=== PATIENT | male | born 1975 | race Caucasian/White ===

== ENCOUNTER 2017-04-29 15:56 | Inpatient (IN) | payer BC ==
[~2017-04-29] VITALS: Ht 172.7 cm; Wt 93.0 kg
[2017-04-29 16:00] VITALS: BP 105/56
[2017-04-29 16:43] LABS: MEAN CORPUSCULAR HEMOGLOBIN 40.6 PG (27.0-31.0); MEAN CORPUSCULAR HGB CONC 33.2 G/DL (32.0-36.0); MEAN CORPUSCULAR VOLUME 122 FL (80-99); MEAN PLATELET VOLUME 5.8 FL (6.5-10.1); PLATELET COUNT 132 K/UL (150-450); RED BLOOD COUNT 2.25 M/UL (4.70-6.10); RED CELL DISTRIBUTION WIDTH 13.9 % (11.6-14.8); WHITE BLOOD COUNT 14.6 K/UL (4.8-10.8)
[2017-04-29 16:44] LABS: BASOPHILS % (AUTO) 0.3 % (0.0-2.0); EOSINOPHILS % (AUTO) 0.1 % (0.0-3.0); MONOCYTES % (AUTO) 3.3 % (1.0-10.0); NEUTROPHILS % (AUTO) 89.3 % (45.0-75.0)
[2017-04-29 16:46] LABS: INR 1.5 (0.9-1.1); PROTHROMBIN TIME 16.1 SEC (9.30-11.50)
[2017-04-29 17:05] LABS: ALANINE AMINOTRANSFERASE 35 U/L (12-78); ALBUMIN/GLOBULIN RATIO 0.5 (1.0-2.7); ANION GAP 14 (5-15); ASPARTATE AMINO TRANSFERASE 306 U/L (15-37); CALCIUM 8.1 MG/DL (8.5-10.1); CARBON DIOXIDE 29 MMOL/L (21-32); CHLORIDE 89 MMOL/L (98-107); CKMB 0.6 NG/ML (0.0-3.6); CREATININE 1.5 MG/DL (0.55-1.30); GLOMERULAR FILTRATION RATE 51.8 mL/min (>60); LIPASE > 1000 U/L (73-393); POTASSIUM 3.1 MMOL/L (3.5-5.1); SODIUM 131 MMOL/L (136-145); TOTAL PROTEIN 5.6 G/DL (6.4-8.2)
--- NOTE | 2017-04-29 17:14 | Emergency Room Report ---
History of Present Illness General Chief Complaint: Abdominal Pain Source: Patient, Medical Record Present Illness HPI Patient presents with complaints of increasing distended abdomen He feels more short of breath over the past few days Patient reports that he is a heavy alcohol drinker Denies any chest pain denies any back or flank pain Has very minimal abdominal discomfort, has pushed on denies any black or tarry stool Denies any blood in the stool denies any vomiting patient noticed his skin color changing to more a yellow color as well Given the continued swelling in the shortness of breath and presents to the ER Allergies: Coded Allergies: No Known Allergies (Unverified , 04/29/17) Patient History Past Medical History: see triage record Pertinent Family History: none Reviewed Nursing Documentation: PMH: Agreed, PSxH: Agreed Nursing Documentation-PMH Past Medical History: No History, Except For Review of Systems All Other Systems: negative except mentioned in HPI Physical Exam Vital Signs Date Time Temp Pulse Resp B/P (MAP) Pulse Ox O2 Delivery O2 Flow Rate FiO2 04/29/17 15:50 98.8 70 20 130/70 99 Non-Rebreather 15.0 Sp02 EP Interpretation: reviewed, normal General Appearance: other - Appears jaundiced and ill Head: normocephalic, atraumatic Eyes: bilateral eye PERRL, bilateral eye EOMI, bilateral eye scleral icterus ENT: hearing grossly normal, normal pharynx, TMs + canals normal, uvula midline Neck: full range of motion, supple, no meningismus, no bony tend Respiratory: no rhonchi, no respiratory distress, no retraction, no accessory muscle use, crackles Cardiovascular #1: normal peripheral pulses, regular rate, rhythm, no gallop, no JVD, no murmur Gastrointestinal: normal bowel sounds, soft, no mass, no organomegaly, no guarding, no hernia, no pulsatile mass, no rebound, hepatomegaly, other - ascites Genitourinary: no CVA tenderness Musculoskeletal: normal inspection Neurologic: oriented x3, responsive, 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 as tested, motor strength/ tone normal, sensory intact Psychiatric: mood/affect normal Skin: other Lymphatic: normal inspection, no adenopathy Procedures Critical Care Time Critical Care Time 40 minutes for multiple re\re evaluations concern for critical presentation findings concerning for life-threatening pathology not including any procedural time Medical Decision Making Diagnostic Impression: Primary Impression: Ascites due to alcoholic cirrhosis Additional Impression: Jaundice of recent onset ER Course With the history exam and presentation, multiple differentials considered, including but not limited to appendicitis, gastritis, cholecystitis, diverticulitis Given the patient's general presentation and clinical history There is concern regarding liver failure Versus other pathology such as mentioned above Patient's ultrasound reveals evidence of ascites, bowel duct appears normal size Patient's blood work is concerning patient requires admission with further specialty consultation Given the patient's intermittent hypotension CAT scan imaging was obtained to evaluate for possible pericardial effusion there is no evidence of that the patient does have bilateral effusions however On CAT scan report is also question of possible pneumonia However the patient denies any cough or URI symptom Patient admittedto ICU for continued care in critical condition Labs Test 04/29/17 16:15 04/29/17 18:00 White Blood Count 14.6 K/UL (4.8-10.8) Red Blood Count 2.25 M/UL (4.70-6.10) Hemoglobin 9.1 G/DL (14.2-18.0) Hematocrit 27.5 % (42.0-52.0) Mean Corpuscular Volume 122 FL (80-99) Mean Corpuscular Hemoglobin 40.6 PG (27.0-31.0) Mean Corpuscular Hemoglobin Concent 33.2 G/DL (32.0-36.0) Red Cell Distribution Width 13.9 % (11.6-14.8) Platelet Count 132 K/UL (150-450) Mean Platelet Volume 5.8 FL (6.5-10.1) Neutrophils (%) (Auto) 89.3 % (45.0-75.0) Lymphocytes (%) (Auto) 7.0 % (20.0-45.0) Monocytes (%) (Auto) 3.3 % (1.0-10.0) Eosinophils (%) (Auto) 0.1 % (0.0-3.0) Basophils (%) (Auto) 0.3 % (0.0-2.0) Prothrombin Time 16.1 SEC (9.30-11.50) Prothromb Time International Ratio 1.5 (0.9-1.1) Activated Partial Thromboplast Time 33 SEC (23-33) Sodium Level 131 MMOL/L (136-145) Potassium Level 3.1 MMOL/L (3.5-5.1) Chloride Level 89 MMOL/L (98-107) Carbon Dioxide Level 29 MMOL/L (21-32) Anion Gap 14 (5-15) Blood Urea Nitrogen 24 mg/dL (7-18) Creatinine 1.5 MG/DL (0.55-1.30) Estimat Glomerular Filtration Rate 51.8 mL/min (>60) Glucose Level 120 MG/DL (74-106) Calcium Level 8.1 MG/DL (8.5-10.1) Total Bilirubin 16.9 MG/DL (0.2-1.0) Direct Bilirubin 13.8 MG/DL (0.0-0.3) Aspartate Amino Transf (AST/SGOT) 306 U/L (15-37) Alanine Aminotransferase (ALT/SGPT) 35 U/L (12-78) Alkaline Phosphatase 533 U/L (46-116) Total Creatine Kinase 38 U/L (26-308) Creatine Kinase MB 0.6 NG/ML (0.0-3.6) Creatine Kinase MB Relative Index 1.5 Troponin I 0.001 ng/mL (0.000-0.056) Pro-B-Type Natriuretic Peptide 436 (0-125) Total Protein 5.6 G/DL (6.4-8.2) Albumin 1.8 G/DL (3.4-5.0) Globulin 3.8 g/dL Albumin/Globulin Ratio 0.5 (1.0-2.7) Lipase > 1000 U/L (73-393) Lactic Acid Level 3.40 mmol/L (0.66-2.22) Rhythm Strip Diag. Results EP Interpretation: yes Rate: 112 Rhythm: no PVC's, no ectopy, other - sinus tach Chest X-Ray Diagnostic Results Chest X-Ray Diagnostic Results : Chest X-Ray Ordered: Yes # of Views/Limited/Complete: 1 View Indication: Chest Pain EP Interpretation: Yes Interpretation: no pneumothorax, other - Bilateral large effusions, pulmonary congestion, heart size appears enlarged, no acute bony abnormalities Impression: Other - bilateral large effusions CT/MRI/US Diagnostic Results CT/MRI/US Diagnostic Results : Impression Abdominal ultrasound: Evidence of ascites, questionable cirrhosis, gallbladder wall appears normal no obvious gallstone refer to report for full specific CT abdomen pelvis small to moderate right and small left pleural effusion bilateral lower lobe atelectasis consider consolidation and possible right upper lobe infiltrate moderate ascites Last Vital Signs Date Time Temp Pulse Resp B/P (MAP) Pulse Ox O2 Delivery O2 Flow Rate FiO2 04/29/17 16:00 133 22 105/56 92 Nasal Cannula 4.0 04/29/17 15:50 98.8 Status: improved Disposition: ADMITTED INPATIENT Condition: Critical BRENT DENTON D.O. Apr 29, 2017 17:14
[2017-04-29 17:25] LABS: BILIRUBIN,DIRECT 13.8 MG/DL (0.0-0.3)
[2017-04-29 17:40] VITALS: BP 118/64
--- NOTE | 2017-04-29 18:45 | Infectious Diseases Prog Note ---
Assessment/Plan Problems: (1) Jaundice of recent onset Assessment & Plan: suspect alcholic hepatitis related, liver US is pending , GI is following (2) Ascites due to alcoholic cirrhosis Assessment & Plan: rule out SBP , will start ceftriaxon empirically , recommend paracentesis and fluids to be sent for culture , gram stain fungal , and AFB (3) Alcohol abuse Assessment & Plan: recommend counseling and rehabilitation Subjective Allergies: Coded Allergies: No Known Allergies (Unverified , 04/29/17) Objective Vital Signs Last 24 Hour Vital Signs Date Time Temp Pulse Resp B/P (MAP) Pulse Ox O2 Delivery O2 Flow Rate FiO2 04/29/17 17:40 124 19 118/64 97 Simple Mask 7.0 04/29/17 16:00 133 22 105/56 92 Nasal Cannula 4.0 04/29/17 15:50 98.8 70 20 130/70 99 Non-Rebreather 15.0 Height (Feet): 5 Height (Inches): 8.00 Weight (Pounds): 160 Laboratory Tests Test 04/29/17 16:15 04/29/17 18:00 White Blood Count 14.6 K/UL (4.8-10.8) H Red Blood Count 2.25 M/UL (4.70-6.10) L Hemoglobin 9.1 G/DL (14.2-18.0) L Hematocrit 27.5 % (42.0-52.0) L Mean Corpuscular Volume 122 FL (80-99) H Mean Corpuscular Hemoglobin 40.6 PG (27.0-31.0) H Mean Corpuscular Hemoglobin Concent 33.2 G/DL (32.0-36.0) Red Cell Distribution Width 13.9 % (11.6-14.8) Platelet Count 132 K/UL (150-450) L Mean Platelet Volume 5.8 FL (6.5-10.1) L Neutrophils (%) (Auto) 89.3 % (45.0-75.0) H Lymphocytes (%) (Auto) 7.0 % (20.0-45.0) L Monocytes (%) (Auto) 3.3 % (1.0-10.0) Eosinophils (%) (Auto) 0.1 % (0.0-3.0) Basophils (%) (Auto) 0.3 % (0.0-2.0) Prothrombin Time 16.1 SEC (9.30-11.50) H Prothromb Time International Ratio 1.5 (0.9-1.1) H Activated Partial Thromboplast Time 33 SEC (23-33) Sodium Level 131 MMOL/L (136-145) L Potassium Level 3.1 MMOL/L (3.5-5.1) L Chloride Level 89 MMOL/L (98-107) L Carbon Dioxide Level 29 MMOL/L (21-32) Anion Gap 14 (5-15) Blood Urea Nitrogen 24 mg/dL (7-18) H Creatinine 1.5 MG/DL (0.55-1.30) H Estimat Glomerular Filtration Rate 51.8 mL/min (>60) Glucose Level 120 MG/DL (74-106) H Calcium Level 8.1 MG/DL (8.5-10.1) L Total Bilirubin 16.9 MG/DL (0.2-1.0) H Direct Bilirubin 13.8 MG/DL (0.0-0.3) H Aspartate Amino Transf (AST/SGOT) 306 U/L (15-37) H Alanine Aminotransferase (ALT/SGPT) 35 U/L (12-78) Alkaline Phosphatase 533 U/L (46-116) H Total Creatine Kinase 38 U/L (26-308) Creatine Kinase MB 0.6 NG/ML (0.0-3.6) Creatine Kinase MB Relative Index 1.5 Troponin I 0.001 ng/mL (0.000-0.056) Pro-B-Type Natriuretic Peptide 436 (0-125) H Total Protein 5.6 G/DL (6.4-8.2) L Albumin 1.8 G/DL (3.4-5.0) L Globulin 3.8 g/dL Albumin/Globulin Ratio 0.5 (1.0-2.7) L Lipase > 1000 U/L (73-393) H Lactic Acid Level Pending Janae Lopez M.D. Apr 29, 2017 18:45
[2017-04-29 18:52] LABS: REFLEX LACTIC ACID YES OR NO YES
[2017-04-29] MEDS ORDERED: THIAMINE HCL100 MG ORAL (19:58)
[2017-04-29] MEDS ORDERED: EUCERIN CREAM15 GM TOPIC (19:58)
[2017-04-29] MEDS ORDERED: PROVENTIL HFA6.7 G1 IH (19:58)
[2017-04-29] MEDS ORDERED: VITAMIN D1000 UNI1 ORAL (19:58)
--- NOTE | 2017-04-29 20:32 | Consultation ---
Consult Note Consult Note Chief Complaint: Abdominal Pain Source: Patient, Medical Record Patient presents with complaints of increasing distended abdomen He feels more short of breath over the past few days Patient reports that he is a heavy alcohol drinker Denies any chest pain denies any back or flank pain Has very minimal abdominal discomfort, has pushed on denies any black or tarry stool Denies any blood in the stool denies any vomiting patient noticed his skin color changing to more a yellow color as well Given the continued swelling in the shortness of breath and presents to the ER mom in room, patient confused examined data reviewed Assessment/Plan status: renal failure low Na due to anasarca Low K Jaundice Anemia high Lipase High lactic low alb Plan; per GI transfuse monitor renal parameters- monitor MIKAELA Obregon Apr 29, 2017 20:32
[2017-04-29 20:55] VITALS: BP 95/65
[2017-04-29] MEDS ORDERED: cefTRIAXone 1 GM in NS 55 ML IVPB SCH (21:00)
[2017-04-29 22:00] VITALS: BP 128/67
[2017-04-29] MEDS ORDERED: Thiamine HCl 100 MG, Folic Acid 1 MG, Magnesium Sulfate 2,000 MG, Multivitamin - 12 Inj... IV SCH ×5 (22:15)
--- NOTE | 2017-04-29 22:27 | Consultation ---
History of Present Illness General Chief Complaint: Abdominal Pain Present Illness HPI the pt reportedly has hx of severe alcohol dependence. mo current alcohol w/d Allergies: Coded Allergies: No Known Allergies (Unverified , 04/29/17) Medication History Scheduled Cholecalciferol (Vitamin D3)* (Vitamin D*), 1,000 UNIT ORAL DAILY, (Reported) Thiamine Hcl (Vitamin B1*), 100 MG ORAL DAILY, (Reported) Scheduled PRN Albuterol Sulfate (Proventil Hfa), 6.7 GM IH BID PRN for Shortness of Breath, ( Reported) Eucerin (Eucerin Creme), 1 APPLIC TOPIC ONCE A WEEK PRN for eczema, (Reported) Patient History Healthcare decision maker Resuscitation status Advanced Directive on File Past Medical/Surgical History Past Medical/Surgical History: (1) Jaundice of recent onset (2) Ascites due to alcoholic cirrhosis Physical Exam Last 24 Hour Vital Signs Date Time Temp Pulse Resp B/P (MAP) Pulse Ox O2 Delivery O2 Flow Rate FiO2 04/29/17 21:47 121 98 Facial 100 04/29/17 20:55 98.8 127 26 95/65 97 Bi-pap 7.0 100 04/29/17 20:31 128 26 Bi-pap 100 04/29/17 20:29 128 96 Facial 100 04/29/17 20:25 7.0 100 04/29/17 17:40 124 19 118/64 97 Simple Mask 7.0 04/29/17 16:00 133 22 105/56 92 Nasal Cannula 4.0 04/29/17 15:50 98.8 70 20 130/70 99 Non-Rebreather 15.0 Intake and Output 04/29/17 04/30/17 19:00 07:00 Intake Total 0 ml Balance 0 ml Intake Oral 0 ml Laboratory Tests Test 04/29/17 16:15 04/29/17 18:00 04/29/17 21:00 White Blood Count 14.6 K/UL (4.8-10.8) H Red Blood Count 2.25 M/UL (4.70-6.10) L Hemoglobin 9.1 G/DL (14.2-18.0) L Hematocrit 27.5 % (42.0-52.0) L Mean Corpuscular Volume 122 FL (80-99) H Mean Corpuscular Hemoglobin 40.6 PG (27.0-31.0) H Mean Corpuscular Hemoglobin Concent 33.2 G/DL (32.0-36.0) Red Cell Distribution Width 13.9 % (11.6-14.8) Platelet Count 132 K/UL (150-450) L Mean Platelet Volume 5.8 FL (6.5-10.1) L Neutrophils (%) (Auto) 89.3 % (45.0-75.0) H Lymphocytes (%) (Auto) 7.0 % (20.0-45.0) L Monocytes (%) (Auto) 3.3 % (1.0-10.0) Eosinophils (%) (Auto) 0.1 % (0.0-3.0) Basophils (%) (Auto) 0.3 % (0.0-2.0) Prothrombin Time 16.1 SEC (9.30-11.50) H Prothromb Time International Ratio 1.5 (0.9-1.1) H Activated Partial Thromboplast Time 33 SEC (23-33) Sodium Level 131 MMOL/L (136-145) L Potassium Level 3.1 MMOL/L (3.5-5.1) L Chloride Level 89 MMOL/L (98-107) L Carbon Dioxide Level 29 MMOL/L (21-32) Anion Gap 14 (5-15) Blood Urea Nitrogen 24 mg/dL (7-18) H Creatinine 1.5 MG/DL (0.55-1.30) H Estimat Glomerular Filtration Rate 51.8 mL/min (>60) Glucose Level 120 MG/DL (74-106) H Calcium Level 8.1 MG/DL (8.5-10.1) L Total Bilirubin 16.9 MG/DL (0.2-1.0) H Direct Bilirubin 13.8 MG/DL (0.0-0.3) H Aspartate Amino Transf (AST/SGOT) 306 U/L (15-37) H Alanine Aminotransferase (ALT/SGPT) 35 U/L (12-78) Alkaline Phosphatase 533 U/L (46-116) H Total Creatine Kinase 38 U/L (26-308) Creatine Kinase MB 0.6 NG/ML (0.0-3.6) Creatine Kinase MB Relative Index 1.5 Troponin I 0.001 ng/mL (0.000-0.056) Pro-B-Type Natriuretic Peptide 436 (0-125) H Total Protein 5.6 G/DL (6.4-8.2) L Albumin 1.8 G/DL (3.4-5.0) L Globulin 3.8 g/dL Albumin/Globulin Ratio 0.5 (1.0-2.7) L Lipase > 1000 U/L (73-393) H Lactic Acid Level 3.40 mmol/L (0.66-2.22) H 4.40 mmol/L (0.66-2.22) H Height (Feet): 5 Height (Inches): 8.00 Weight (Pounds): 160 Medications Current Medications Medications (Trade) Dose Ordered Sig/Leonard Route PRN Reason Start Time Stop Time Status Last Admin Dose Admin Ceftriaxone Sodium 1 gm/ Sodium Chloride 55 ml @ 110 mls/hr Q24HRS IVPB 04/29/17 21:00 05/06/17 20:59 Potassium Chloride 100 ml @ 100 mls/hr Q1H IVPB 04/29/17 21:00 04/30/17 00:59 Sodium Chloride 1,000 ml @ 150 mls/hr Q6H40M IV 04/29/17 22:30 05/29/17 22:29 Assessment/Plan Assessment/Plan ativan iv was ordered valium po folate thiamine Trino Kirby M.D. Apr 29, 2017 22:27
[2017-04-29] MEDS ORDERED: LORazepam Inj 2mg/ml 1ml IV PRN (22:30)
[2017-04-29] MEDS ORDERED: Phytonadione 1 MG in D5W 55 ML IVPB ONE (22:45)
--- NOTE | 2017-04-29 22:47 | Consultation ---
Consult Note Consult Note cirrhosis Assessment/Plan full dictation to fu banana bag vit k paracentesis avoid diuretics for now albumin prednisone monitor labs clears not transplant candidate given active drinking mucangelitost BARTOLO CHAPA Apr 29, 2017 22:47
[2017-04-29 23:00] VITALS: BP 136/64
[2017-04-29] MEDS ORDERED: ACETYLCYSTEINE 20% ORAL ONE (23:00)
[2017-04-29 23:33] LABS: PATH BLOOD SMEAR/OMC SENT TO PATHOLOGIST
[2017-04-29] MEDS: Pantoprazole Inj IVP SCH (23:35)
[2017-04-30] VITALS (24 sets, daily range): BP systolic 92–133; BP diastolic 46–72
[2017-04-30] MEDS ORDERED: Thiamine HCl 100 MG, Folic Acid 1 MG, Magnesium Sulfate 2,000 MG, Multivitamin - 12 Inj... IV SCH ×5
--- NOTE | 2017-04-30 00:51 | Consultation ---
History of Present Illness General Date patient seen: Apr 30, 2017 Chief Complaint: Abdominal Pain Present Illness HPI 42 year old male with history of chronic alcohol dependance and abuse presented to ED with complaints of worsening shortness of breath. As per patient, he has been progressively abusing alcohol for over 10 years. He drinks multiple times a day. He has not thought much about it until earlier today when he began to have some shortness of breath. He felt as if it was difficult to breath and came to ED for evaluation. Patient is accompanied by his mother. When asked they state that he was okay two days ago but was notable jaundice starting yesterday. He has noted some darkening of his urine over the past two weeks but skin color and jaundice started yesterday. He denies any abdominal pain. no nausea or emesis. has been having normal but dark BM's. passes flatus consistently. He has never seen help for EtOH dependance. Has never been sick prior. States he has not known of any liver problems in the past but has also not seen a physician prior. In ED had CT which demonstrated ascites, hepatomegaly, splenomegaly. Allergies: Coded Allergies: No Known Allergies (Unverified , 04/29/17) Medication History Scheduled Cholecalciferol (Vitamin D3)* (Vitamin D*), 1,000 UNIT ORAL DAILY, (Reported) Thiamine Hcl (Vitamin B1*), 100 MG ORAL DAILY, (Reported) Scheduled PRN Albuterol Sulfate (Proventil Hfa), 6.7 GM IH BID PRN for Shortness of Breath, ( Reported) Eucerin (Eucerin Creme), 1 APPLIC TOPIC ONCE A WEEK PRN for eczema, (Reported) Patient History History Provided By: Patient, Family Member Healthcare decision maker Resuscitation status Advanced Directive on File Past Medical/Surgical History Past Medical/Surgical History: (1) Jaundice of recent onset (2) Ascites due to alcoholic cirrhosis (3) Alcohol abuse Review of Systems Constitutional: Denies: no symptoms, see HPI, chills, sweats, fever, malaise, weakness, other Eye: Denies: no symptoms, see HPI, eye pain, blurred vision, tearing, double vision, nose pain, nose congestion, acuity changes, discharge, other ENT: Denies: no symptoms, see HPI, ear pain, ear discharge, nose pain, nose congestion, throat pain, throat swelling, mouth pain, hearing loss, nasal discharge, other Respiratory: Reports: shortness of breath Cardiovascular: Denies: no symptoms, see HPI, chest pain, edema, palpitations, syncope, PND, other Gastrointestinal: Denies: no symptoms, see HPI, abdominal pain, constipation, diarrhea, nausea, vomiting, melena, hematemesis, other Genitourinary: Denies: no symptoms, see HPI, discharge, dysuria, frequency, hematuria, pain, retention, incontinence, urgency, vag bleed/dc, other Musculoskeletal: Denies: no symptoms, see HPI, back pain, gout, joint pain, joint swelling, muscle pain, muscle stiffness, other Skin: Denies: no symptoms, see HPI, rash, change in color, change in hair/nails , dryness, lesions, other Psychiatric: Denies: no symptoms, see HPI, prior hx, anxiety, depressed feelings, emotional problems, SI, HI, hallucinations, other Neurological: Denies: no symptoms, see HPI, headache, numbness, paresthesia, seizure, tingling, tremors, focal weakness, syncope, dizziness, other Endocrine: Denies: no symptoms, see HPI, excessive sweating, flushing, intolerance to temperature, increased thirst, increased urine, unexplained weight loss, other Hematologic/Lymphatic: Denies: no symptoms, see HPI, anemia, blood clots, easy bleeding, easy bruising, swollen glands, diathesis, other Physical Exam General Appearance: no apparent distress, alert Lines, tubes and drains: peripheral HEENT: normocephalic, anicteric, PERRL, other - jaundice Neck: normal inspection Respiratory/Chest: chest wall non-tender, normal breath sounds, no accessory muscle use Cardiovascular/Chest: tachycardia Abdomen: normal bowel sounds, non tender, soft, distended Extremities: normal range of motion Skin Exam: jaundice 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 II-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 grossly normal, alert, oriented x 3, responsive Last 24 Hour Vital Signs Date Time Temp Pulse Resp B/P (MAP) Pulse Ox O2 Delivery O2 Flow Rate FiO2 04/29/17 23:15 123 98 Facial 70 04/29/17 22:14 127 21 99/55 97 Bi-pap 04/29/17 21:47 121 98 Facial 100 04/29/17 20:55 98.8 127 26 95/65 97 Bi-pap 7.0 100 04/29/17 20:31 128 26 Bi-pap 100 04/29/17 20:29 128 96 Facial 100 04/29/17 20:25 7.0 100 04/29/17 17:40 124 19 118/64 97 Simple Mask 7.0 04/29/17 16:00 133 22 105/56 92 Nasal Cannula 4.0 04/29/17 15:50 98.8 70 20 130/70 99 Non-Rebreather 15.0 Laboratory Tests Test 04/29/17 16:15 04/29/17 18:00 04/29/17 21:00 04/29/17 23:40 White Blood Count 14.6 K/UL (4.8-10.8) H Red Blood Count 2.25 M/UL (4.70-6.10) L Hemoglobin 9.1 G/DL (14.2-18.0) L Hematocrit 27.5 % (42.0-52.0) L Mean Corpuscular Volume 122 FL (80-99) H Mean Corpuscular Hemoglobin 40.6 PG (27.0-31.0) H Mean Corpuscular Hemoglobin Concent 33.2 G/DL (32.0-36.0) Red Cell Distribution Width 13.9 % (11.6-14.8) Platelet Count 132 K/UL (150-450) L Mean Platelet Volume 5.8 FL (6.5-10.1) L Neutrophils (%) (Auto) 89.3 % (45.0-75.0) H Lymphocytes (%) (Auto) 7.0 % (20.0-45.0) L Monocytes (%) (Auto) 3.3 % (1.0-10.0) Eosinophils (%) (Auto) 0.1 % (0.0-3.0) Basophils (%) (Auto) 0.3 % (0.0-2.0) Prothrombin Time 16.1 SEC (9.30-11.50) H Prothromb Time International Ratio 1.5 (0.9-1.1) H Activated Partial Thromboplast Time 33 SEC (23-33) Sodium Level 131 MMOL/L (136-145) L Potassium Level 3.1 MMOL/L (3.5-5.1) L Chloride Level 89 MMOL/L (98-107) L Carbon Dioxide Level 29 MMOL/L (21-32) Anion Gap 14 (5-15) Blood Urea Nitrogen 24 mg/dL (7-18) H Creatinine 1.5 MG/DL (0.55-1.30) H Estimat Glomerular Filtration Rate 51.8 mL/min (>60) Glucose Level 120 MG/DL (74-106) H Calcium Level 8.1 MG/DL (8.5-10.1) L Total Bilirubin 16.9 MG/DL (0.2-1.0) H Direct Bilirubin 13.8 MG/DL (0.0-0.3) H Aspartate Amino Transf (AST/SGOT) 306 U/L (15-37) H Alanine Aminotransferase (ALT/SGPT) 35 U/L (12-78) Alkaline Phosphatase 533 U/L (46-116) H Total Creatine Kinase 38 U/L (26-308) Creatine Kinase MB 0.6 NG/ML (0.0-3.6) Creatine Kinase MB Relative Index 1.5 Troponin I 0.001 ng/mL (0.000-0.056) Pro-B-Type Natriuretic Peptide 436 (0-125) H Total Protein 5.6 G/DL (6.4-8.2) L Albumin 1.8 G/DL (3.4-5.0) L Globulin 3.8 g/dL Albumin/Globulin Ratio 0.5 (1.0-2.7) L Lipase > 1000 U/L (73-393) H Lactic Acid Level 3.40 mmol/L (0.66-2.22) H 4.40 mmol/L (0.66-2.22) H Urine Opiates Screen Pending Urine Barbiturates Screen Pending Phencyclidine (PCP) Screen Pending Urine Amphetamines Screen Pending Urine Benzodiazepines Screen Pending Urine Cocaine Screen Pending Urine Marijuana (THC) Screen Pending Height (Feet): 5 Height (Inches): 8.00 Weight (Pounds): 160 Medications Current Medications Medications (Trade) Dose Ordered Sig/Leonard Route PRN Reason Start Time Stop Time Status Last Admin Dose Admin Acetylcysteine (Mucomyst) 5,000 mg EVERY 4 HOURS ORAL 04/30/17 01:00 05/30/17 00:59 Ceftriaxone Sodium 1 gm/ Sodium Chloride 55 ml @ 110 mls/hr Q24HRS IVPB 04/29/17 21:00 05/06/17 20:59 04/30/17 00:11 Diazepam (Valium) 5 mg BEDTIME ORAL 04/29/17 22:45 05/06/17 22:44 04/30/17 00:11 Diazepam (Valium) 10 mg EVERY 4 HOURS PRN ORAL alcohol withdrawl 04/29/17 22:15 05/06/17 22:14 Lorazepam (Ativan 2mg/ml 1ml) 1 mg EVERY 2 HOURS PRN IV For Anxiety 04/29/17 22:30 05/06/17 22:29 UNV Lorazepam (Ativan 2mg/ml 1ml) 2 mg Q4H PRN IV ANX, agitation 04/29/17 22:15 05/06/17 22:14 Pantoprazole (Protonix) 40 mg EVERY 12 HOURS IVP 04/29/17 22:15 05/29/17 22:14 04/29/17 23:35 Potassium Chloride 100 ml @ 100 mls/hr Q1H IVPB 04/29/17 21:00 04/30/17 00:59 04/29/17 23:39 Prednisone (predniSONE) 40 mg DAILY ORAL 04/30/17 09:00 05/30/17 08:59 Sodium Chloride 1,000 ml @ 75 mls/hr [id number] IV 04/30/17 22:30 05/30/17 22:29 Thiamine HCl 100 mg/Folic Acid 1 mg/Magnesium Sulfate 2000 mg/ Multivitamins 10 ml/Sodium Chloride 1,015.2 ml @ 75 mls/hr Q24H IV 04/30/17 00:00 05/30/17 00:00 Thiamine HCl 200 mg/Dextrose 57 ml @ 75 mls/hr BID IVPB 04/30/17 09:00 05/30/17 08:59 Assessment/Plan Problem List: (1) Jaundice of recent onset Assessment & Plan: 42M with acute hepatic failure, jaundice, SOB, chemical pancreatitis. afebrile, tachycardic, initially hypotensive but BP okay now, labs as noted, CT as noted. over a decade of worsening alcohol abuse and acute onset hepatic failure. chemical pancreatitis but clinically without symptoms. significant electrolyte abnormalities. elevated lactate. -No acute surgical intervention. -jeong for accurate urine output monitoring -banana bag. will need EtOH prn meds as he is high risk for withdraw symptoms -IV fluids -paracentesis -trend labs, AM labs -abdominal ultrasound ICD Codes: R17 - Unspecified jaundice SNOMED: [id number] Status: stable YeisonAlverto Apr 30, 2017 00:51
[2017-04-30] MEDS ORDERED: Phytonadione 10 mg/mL 1ml amp ONE (01:15)
[2017-04-30] MEDS: ACETYLCYSTEINE 20% ORAL SCH ×3 (02:44→08:24)
[2017-04-30] MEDS ORDERED: THIAMINE HCL IVPB SCH ×5 (04:00→09:00)
[2017-04-30] MEDS ORDERED: D5W IVPB SCH ×5 (04:00→09:00)
[2017-04-30] MEDS: LORazepam Inj 2mg/ml 1ml IV PRN (06:04)
[2017-04-30 06:29] LABS: INR 1.8 (0.9-1.1); PROTHROMBIN TIME 18.9 SEC (9.30-11.50)
[2017-04-30 06:30] LABS: MEAN CORPUSCULAR HEMOGLOBIN 41.9 PG (27.0-31.0); MEAN CORPUSCULAR HGB CONC 34.7 G/DL (32.0-36.0); MEAN CORPUSCULAR VOLUME 121 FL (80-99); MEAN PLATELET VOLUME 6.2 FL (6.5-10.1); PLATELET COUNT 114 K/UL (150-450); RED BLOOD COUNT 1.64 M/UL (4.70-6.10); RED CELL DISTRIBUTION WIDTH 13.6 % (11.6-14.8); WHITE BLOOD COUNT 13.3 K/UL (4.8-10.8)
[2017-04-30 08:11] LABS: ALANINE AMINOTRANSFERASE 27 U/L (12-78); ALBUMIN/GLOBULIN RATIO 0.5 (1.0-2.7); ANION GAP 10 (5-15); ASPARTATE AMINO TRANSFERASE 235 U/L (15-37); CALCIUM 7.7 MG/DL (8.5-10.1); CARBON DIOXIDE 30 MMOL/L (21-32); CHLORIDE 87 MMOL/L (98-107); CRP QUANT 8.6 mg/dL (0.00-0.90); GLOMERULAR FILTRATION RATE 37.2 mL/min (>60); LIPASE > 1000 U/L (73-393); MAGNESIUM 1.6 MG/DL (1.8-2.4); PHOSPHORUS 3.3 MG/DL (2.5-4.9); POTASSIUM 3.3 MMOL/L (3.5-5.1); SODIUM 127 MMOL/L (136-145); THYROID STIMULATING HORMONE 3.417 uiU/mL (0.360-3.740); TOTAL PROTEIN 4.8 G/DL (6.4-8.2); URIC ACID 5.5 MG/DL (2.6-7.2)
[2017-04-30 08:12] LABS: FERRITIN > 2000 NG/ML (8-388)
[2017-04-30] MEDS: Folic Acid 1 MG, Magnesium Sulfate 2,000 MG, Multivitamin - 12 Injection 10 ML in NS w/... IV SCH (08:24)
[2017-04-30] MEDS: Pantoprazole Inj IVP SCH ×2 (08:24→21:07)
[2017-04-30] MEDS ORDERED: Thiamine 100mg tab ORAL SCH (09:00)
[2017-04-30 09:06] LABS: BILIRUBIN,DIRECT 12.9 MG/DL (0.0-0.3)
--- NOTE | 2017-04-30 09:38 | Diagnostic Imaging Report ---
INDICATION: Shortness of breath, abdominal pain, increasing abdominal distention over the past few days TECHNIQUE: No oral or IV contrast, per emergency room physician request Spiral acquisitions obtained through the chest, abdomen, and pelvis Multiplanar reconstructions were generated. Total dose length product 1865 mGycm. CTDIvol(s) 25 mGy. Radiation dose was minimized using automated exposure control COMPARISON: None FINDINGS Chest: There are bilateral pleural effusions, small to moderate, slightly larger on the right than on the left. There is atelectasis and consolidation of a significant portion of the right lower lobe. There is some atelectasis and consolidation, less extensive, of the right middle lobe. Patchy peripheral parenchymal opacities are seen in the right upper lobe. Similar patchy peripheral opacities are seen in the left upper lobe, and there is compressive atelectasis and possibly some consolidation involving the left lower lobe. The heart size is normal. No definite pericardial effusion. There are prominent but not frankly enlarged mediastinal lymph nodes. The included portions of the thyroid are unremarkable. No axillary or chest wall mass or adenopathy. There is bilateral mild gynecomastia, right greater than left. There is unusual appearance of the medial left ninth rib. Uncertain as to whether this is due to prior trauma or is developmental in nature. Abdomen pelvis: Lack of IV contrast limits assessment of the solid organs. Lack of oral contrast limits assessment of the GI tract There is a moderate amount of ascites fluid present. The liver demonstrates generalized hypoattenuation, as is the with fatty change. More striking decreased attenuation is seen posteriorly and inferiorly. This most likely represents more geographic fatty change, but the possibility of underlying mass cannot excluded. The liver is enlarged. There are are scattered areas of surface nodularity. The gallbladder is unremarkable. There is no biliary ductal dilatation. The spleen is mildly enlarged, measuring 14.4 cm long axis dimension there is a prominent periumbilical, prominent inferior mesenteric vein, and likely small perigastric varices. The pancreas is unremarkable, but there are prominent peripancreatic lymph nodes. The adrenals, kidneys are unremarkable. There are prominent but not frankly enlarged retroperitoneal lymph nodes. The prostate is unremarkable. The bladder is normal. There are a few colonic diverticula. No findings to suggest acute diverticulitis. There is wall thickening of the ascending colon. There is also wall thickening of the terminal ileum. The small bowel is nondilated. There is no evidence of free intraperitoneal air. There is considerable edema of the bilateral flank subcutaneous fat. There is also some congestion of the mesentery Impression: Limited exam, as described Enlarged liver. Diffuse and more focal low-attenuation suggests diffuse geographic fatty change. Underlying mass lesion not excludable. Recommend further evaluation with contrast CT or MRI Focal areas of hepatic surface nodularity suggest early cirrhotic changes Evidence of portal hypertension, presumably related to the above, with ascites, mesenteric congestion, splenomegaly, and small varices Bilateral pleural effusions Bilateral lower lobe consolidation and atelectasis, likely in partly compressive in nature secondary to the pleural fluid. More focal patchy upper lobe pulmonary parenchymal opacities are nonspecific, could represent areas of infection, noninfectious inflammation, or edema Wall thickening of the ascending colon and terminal ileum, suspicious for colitis/enteritis. Also could be related to the hemodynamic derangements secondary to liver disease Colonic diverticulosis. No evidence of diverticulitis Edema of the bilateral flank subcutaneous fat Borderline peripancreatic lymphadenopathy, nonspecific Gardner -- btle findings as noted, including unusual appearance of the medial left ninth rib, bilateral right greater than left mild gynecomastia This agrees with the preliminary interpretation provided overnight by Dr. Bey The CT scanner at [facility] is accredited by the [employer] and the scans are performed using protocols designed to limit radiation exposure to as low as reasonably achievable to attain images of sufficient resolution adequate for diagnostic evaluation.
[2017-04-30 09:51] LABS: LYMPHOCYTES % (MANUAL) 7 % (20-45); NEUTROPHILS % (MANUAL) 89 % (45-75); TOTAL CELLS COUNTED 100
[2017-04-30 09:52] LABS: BAND NEUTROPHILS % (MANUAL) 0 % (0-8); BASOPHILS % (MANUAL) 0 % (0-2); EOSINOPHILS % (MANUAL) 0 % (0-3); HYPOCHROMASIA 2+; MACROCYTES 1+; PLATELET ESTIMATE DECREASED; PLATELET MORPHOLOGY NORMAL
[2017-04-30 10:04] LABS: AMMONIA 102 umol/L (11.2-31.7)
[2017-04-30 10:13] LABS: REFLEX LACTIC ACID YES OR NO YES
[2017-04-30 10:19] LABS: HEMOGLOBIN A1C 4.5 % (4.5-6.2)
[2017-04-30] MEDS: Propranolol 10mg tab ORAL SCH ×2 (10:30→21:00)
--- NOTE | 2017-04-30 10:30 | General Progress Note ---
Assessment/Plan Status: unchanged, deteriorating Assessment/Plan status: renal failure, likely hepatorenal low Na due to anasarca Low K Jaundice Anemia high Lipase High lactic low alb Plan; Urine studies per GI transfuse monitor renal parameters- monitor lytes poor prognosis Subjective ROS Limited/Unobtainable: No Constitutional: Reports: malaise, weakness Allergies: Coded Allergies: No Known Allergies (Unverified , 04/29/17) Objective Last 24 Hour Vital Signs Date Time Temp Pulse Resp B/P (MAP) Pulse Ox O2 Delivery O2 Flow Rate FiO2 04/30/17 10:00 121 24 92/47 97 Non-Rebreather 100 04/30/17 09:00 127 25 105/46 97 Non-Rebreather 100 04/30/17 08:00 124 04/30/17 08:00 70 04/30/17 08:00 99.8 130 20 101/47 97 Non-Rebreather 100 04/30/17 07:10 129 23 96 Facial 70 04/30/17 07:00 127 30 103/49 96 Bi-pap 7.0 70 04/30/17 06:00 125 30 112/54 95 Bi-pap 7.0 70 04/30/17 05:00 129 21 112/55 93 Bi-pap 7.0 70 04/30/17 04:39 129 20 95 Facial 70 04/30/17 04:00 129 04/30/17 04:00 98.8 127 26 115/52 97 Bi-pap 7.0 100 04/30/17 03:46 70 04/30/17 03:00 129 20 114/55 96 Bi-pap 7.0 100 04/30/17 02:30 129 22 95 Facial 70 04/30/17 02:00 128 20 110/56 96 Bi-pap 7.0 100 04/30/17 01:00 128 20 113/60 96 Bi-pap 7.0 100 04/30/17 00:54 122 97 Facial 70 04/30/17 00:00 98.5 129 21 133/72 95 Bi-pap 7.0 70 04/30/17 00:00 129 04/29/17 23:15 123 98 Facial 70 04/29/17 23:00 123 20 136/64 96 Bi-pap 7.0 100 04/29/17 23:00 70 04/29/17 22:14 127 21 99/55 97 Bi-pap 04/29/17 22:00 126 04/29/17 22:00 98.5 126 20 128/67 98 Bi-pap 7.0 100 04/29/17 21:47 121 98 Facial 100 04/29/17 20:55 98.8 127 26 95/65 97 Bi-pap 7.0 100 04/29/17 20:31 128 26 Bi-pap 100 04/29/17 20:29 128 96 Facial 100 04/29/17 20:25 7.0 100 04/29/17 17:40 124 19 118/64 97 Simple Mask 7.0 04/29/17 16:00 133 22 105/56 92 Nasal Cannula 4.0 04/29/17 15:50 98.8 70 20 130/70 99 Non-Rebreather 15.0 Intake and Output 04/30/17 05/01/17 19:00 07:00 Output Total 0 ml Balance 0 ml Output Urine Total 0 ml Laboratory Tests 04/29/17 16:15: White Blood Count 14.6H, Red Blood Count 2.25L, Hemoglobin 9.1L, Hematocrit 27.5L, Mean Corpuscular Volume 122H, Mean Corpuscular Hemoglobin 40.6H, Mean Corpuscular Hemoglobin Concent 33.2, Red Cell Distribution Width 13.9, Platelet Count 132L, Mean Platelet Volume 5.8L, Neutrophils (%) (Auto) 89.3H, Lymphocytes (%) (Auto) 7.0L, Monocytes (%) (Auto) 3.3, Eosinophils (%) (Auto) 0.1, Basophils (%) (Auto) 0.3, Prothrombin Time 16.1H, Prothromb Time International Ratio 1.5H, Activated Partial Thromboplast Time 33, Sodium Level 131L, Potassium Level 3.1L, Chloride Level 89L, Carbon Dioxide Level 29, Anion Gap 14, Blood Urea Nitrogen 24H, Creatinine 1.5H, Estimat Glomerular Filtration Rate 51.8, Glucose Level 120H, Calcium Level 8.1L, Total Bilirubin 16.9H, Direct Bilirubin 13.8H, Aspartate Amino Transf (AST/SGOT) 306H, Alanine Aminotransferase (ALT/SGPT) 35, Alkaline Phosphatase 533H, Total Creatine Kinase 38, Creatine Kinase MB 0.6, Creatine Kinase MB Relative Index 1.5, Troponin I 0.001, Pro-B-Type Natriuretic Peptide 436H, Total Protein 5.6L, Albumin 1.8L, Globulin 3.8, Albumin/Globulin Ratio 0.5L, Lipase > 1000H 04/29/17 18:00: Lactic Acid Level 3.40H 04/29/17 21:00: Lactic Acid Level 4.40H 04/29/17 23:40: Urine Opiates Screen Negative, Urine Barbiturates Screen Negative, Phencyclidine (PCP) Screen Negative, Urine Amphetamines Screen Negative, Urine Benzodiazepines Screen Negative, Urine Cocaine Screen Negative, Urine Marijuana (THC) Screen Negative 04/30/17 05:05: White Blood Count 13.3H, Red Blood Count 1.64L, Hemoglobin 6.9*L, Hematocrit 19.9L, Mean Corpuscular Volume 121H, Mean Corpuscular Hemoglobin 41.9H, Mean Corpuscular Hemoglobin Concent 34.7, Red Cell Distribution Width 13.6, Platelet Count 114L, Mean Platelet Volume 6.2L, Neutrophils (%) (Auto) , Lymphocytes (%) (Auto) , Monocytes (%) (Auto) , Eosinophils (%) (Auto) , Basophils (%) (Auto) , Differential Total Cells Counted 100, Neutrophils % (Manual) 89H, Lymphocytes % (Manual) 7L, Monocytes % (Manual) 4, Eosinophils % (Manual) 0, Basophils % ( Manual) 0, Band Neutrophils 0, Platelet Estimate DecreasedL, Platelet Morphology Normal, Hypochromasia 2+, Macrocytosis 1+, Prothrombin Time 18.9H, Prothromb Time International Ratio 1.8H, Activated Partial Thromboplast Time 37H , Sodium Level 127L, Potassium Level 3.3L, Chloride Level 87L, Carbon Dioxide Level 30, Anion Gap 10, Blood Urea Nitrogen 29H, Creatinine 2.0H, Estimat Glomerular Filtration Rate 37.2, Glucose Level 97, Hemoglobin A1c [Pending], Lactic Acid Level 3.10H, Uric Acid 5.5, Calcium Level 7.7L, Phosphorus Level 3.3 , Magnesium Level 1.6L, Ferritin > 2000H, Total Bilirubin 16.9H, Direct Bilirubin 12.9H, Gamma Glutamyl Transpeptidase 692H, Aspartate Amino Transf (AST /SGOT) 235H, Alanine Aminotransferase (ALT/SGPT) 27, Alkaline Phosphatase 389H, Ammonia 102H, Total Creatine Kinase 24L, C-Reactive Protein, Quantitative 8.6H, Pro-B-Type Natriuretic Peptide 522H, Total Protein 4.8L, Albumin 1.7L, Globulin 3.1, Albumin/Globulin Ratio 0.5L, Amylase Level 73, Lipase > 1000H, Vitamin B12 Level < 30L, Folate [Pending], Thyroid Stimulating Hormone (TSH) 3.417 Height (Feet): 5 Height (Inches): 8.00 Weight (Pounds): 206 General Appearance: confused Cardiovascular: tachycardia Respiratory/Chest: decreased breath sounds Abdomen: distended Extremities: other Skin: other - deeply jaundiced Objective MIKAELA Mcdowell Apr 30, 2017 10:30
--- NOTE | 2017-04-30 10:32 | Diagnostic Imaging Report ---
Indication: Chest pain Technique: One view of the chest Comparison: none Findings: There is marked elevation of the bilateral hemidiaphragms, and lung volumes are low, severely limiting evaluation. There is bilateral interstitial and airspace disease bilateral pleural effusions Impression: Markedly low lung volumes Bilateral interstitial and alveolar infiltrates versus edema Bilateral pleural effusions
--- NOTE | 2017-04-30 10:38 | Diagnostic Imaging Report ---
Indication: Abdominal pain Technique: Mccabe-scale and duplex images of the upper abdomen were obtained Comparison: None Findings: Gallbladder demonstrates sludge. No stones. That is mild wall thickening, gallbladder wall measuring 3 mm thick. No pericholecystic fluid. Sonographic Parish's sign is negative. Common bile duct measures 6 mm in diameter. No intrahepatic biliary ductal dilatation. Liver demonstrates coarsened echogenicity. It is enlarged. No definite focal abnormality. There is ascites fluid Portal vein and hepatic veins are patent. Pancreas is unremarkable. The spleen is borderline enlarged, measuring 13.2 cm long axis dimension. Left kidney measures 11.8 cm in length. Right kidney measures 12.7 cm length. Both kidneys demonstrate normal echogenicity. There is no hydronephrosis. No focal abnormality . Abdominal aorta is partially obscured by bowel gas, visualized portions are non-aneurysmal . There is a small left pleural effusion demonstrated Impression: Hepatomegaly. Coarsened hepatic echogenicity, consistent with hepatocellular disease, could represent fatty changes described on subsequent CT scan Gallbladder sludge. No stones. Gallbladder wall thickening is likely related to hepatic disease. Acute acalculous cholecystitis not completely excludable however, and hepatobiliary nuclear scan should be considered if there is high clinical suspicion Ascites Borderline splenomegaly Small left pleural effusion Note incomplete visualization of the abdominal aorta
--- NOTE | 2017-04-30 11:42 | Neurology Progress Note ---
Interim History Interim History ROS Limited/Unobtainable: No Objective Physical Exam Last Vital Signs Date Time Temp Pulse Resp B/P (MAP) Pulse Ox O2 Delivery O2 Flow Rate FiO2 04/30/17 10:30 127 100/53 04/30/17 10:00 24 97 Non-Rebreather 100 04/30/17 08:00 99.8 04/30/17 07:00 7.0 Laboratory Tests Test 04/29/17 16:15 04/29/17 18:00 04/29/17 21:00 04/29/17 23:40 White Blood Count 14.6 K/UL (4.8-10.8) H Red Blood Count 2.25 M/UL (4.70-6.10) L Hemoglobin 9.1 G/DL (14.2-18.0) L Hematocrit 27.5 % (42.0-52.0) L Mean Corpuscular Volume 122 FL (80-99) H Mean Corpuscular Hemoglobin 40.6 PG (27.0-31.0) H Mean Corpuscular Hemoglobin Concent 33.2 G/DL (32.0-36.0) Red Cell Distribution Width 13.9 % (11.6-14.8) Platelet Count 132 K/UL (150-450) L Mean Platelet Volume 5.8 FL (6.5-10.1) L Neutrophils (%) (Auto) 89.3 % (45.0-75.0) H Lymphocytes (%) (Auto) 7.0 % (20.0-45.0) L Monocytes (%) (Auto) 3.3 % (1.0-10.0) Eosinophils (%) (Auto) 0.1 % (0.0-3.0) Basophils (%) (Auto) 0.3 % (0.0-2.0) Prothrombin Time 16.1 SEC (9.30-11.50) H Prothromb Time International Ratio 1.5 (0.9-1.1) H Activated Partial Thromboplast Time 33 SEC (23-33) Sodium Level 131 MMOL/L (136-145) L Potassium Level 3.1 MMOL/L (3.5-5.1) L Chloride Level 89 MMOL/L (98-107) L Carbon Dioxide Level 29 MMOL/L (21-32) Anion Gap 14 (5-15) Blood Urea Nitrogen 24 mg/dL (7-18) H Creatinine 1.5 MG/DL (0.55-1.30) H Estimat Glomerular Filtration Rate 51.8 mL/min (>60) Glucose Level 120 MG/DL (74-106) H Calcium Level 8.1 MG/DL (8.5-10.1) L Total Bilirubin 16.9 MG/DL (0.2-1.0) H Direct Bilirubin 13.8 MG/DL (0.0-0.3) H Aspartate Amino Transf (AST/SGOT) 306 U/L (15-37) H Alanine Aminotransferase (ALT/SGPT) 35 U/L (12-78) Alkaline Phosphatase 533 U/L (46-116) H Total Creatine Kinase 38 U/L (26-308) Creatine Kinase MB 0.6 NG/ML (0.0-3.6) Creatine Kinase MB Relative Index 1.5 Troponin I 0.001 ng/mL (0.000-0.056) Pro-B-Type Natriuretic Peptide 436 (0-125) H Total Protein 5.6 G/DL (6.4-8.2) L Albumin 1.8 G/DL (3.4-5.0) L Globulin 3.8 g/dL Albumin/Globulin Ratio 0.5 (1.0-2.7) L Lipase > 1000 U/L (73-393) H Lactic Acid Level 3.40 mmol/L (0.66-2.22) H 4.40 mmol/L (0.66-2.22) H Urine Opiates Screen Negative (NEGATIVE) Urine Barbiturates Screen Negative (NEGATIVE) Phencyclidine (PCP) Screen Negative (NEGATIVE) Urine Amphetamines Screen Negative (NEGATIVE) Urine Benzodiazepines Screen Negative (NEGATIVE) Urine Cocaine Screen Negative (NEGATIVE) Urine Marijuana (THC) Screen Negative (NEGATIVE) Test 04/30/17 05:05 White Blood Count 13.3 K/UL (4.8-10.8) H Red Blood Count 1.64 M/UL (4.70-6.10) L Hemoglobin 6.9 G/DL (14.2-18.0) *L Hematocrit 19.9 % (42.0-52.0) L Mean Corpuscular Volume 121 FL (80-99) H Mean Corpuscular Hemoglobin 41.9 PG (27.0-31.0) H Mean Corpuscular Hemoglobin Concent 34.7 G/DL (32.0-36.0) Red Cell Distribution Width 13.6 % (11.6-14.8) Platelet Count 114 K/UL (150-450) L Mean Platelet Volume 6.2 FL (6.5-10.1) L Neutrophils (%) (Auto) % (45.0-75.0) Lymphocytes (%) (Auto) % (20.0-45.0) Monocytes (%) (Auto) % (1.0-10.0) Eosinophils (%) (Auto) % (0.0-3.0) Basophils (%) (Auto) % (0.0-2.0) Differential Total Cells Counted 100 Neutrophils % (Manual) 89 % (45-75) H Lymphocytes % (Manual) 7 % (20-45) L Monocytes % (Manual) 4 % (1-10) Eosinophils % (Manual) 0 % (0-3) Basophils % (Manual) 0 % (0-2) Band Neutrophils 0 % (0-8) Platelet Estimate Decreased L Platelet Morphology Normal Hypochromasia 2+ Macrocytosis 1+ Prothrombin Time 18.9 SEC (9.30-11.50) H Prothromb Time International Ratio 1.8 (0.9-1.1) H Activated Partial Thromboplast Time 37 SEC (23-33) H Sodium Level 127 MMOL/L (136-145) L Potassium Level 3.3 MMOL/L (3.5-5.1) L Chloride Level 87 MMOL/L (98-107) L Carbon Dioxide Level 30 MMOL/L (21-32) Anion Gap 10 (5-15) Blood Urea Nitrogen 29 mg/dL (7-18) H Creatinine 2.0 MG/DL (0.55-1.30) H Estimat Glomerular Filtration Rate 37.2 mL/min (>60) Glucose Level 97 MG/DL (74-106) Hemoglobin A1c 4.5 % (4.5-6.2) Lactic Acid Level 3.10 mmol/L (0.66-2.22) H Uric Acid 5.5 MG/DL (2.6-7.2) Calcium Level 7.7 MG/DL (8.5-10.1) L Phosphorus Level 3.3 MG/DL (2.5-4.9) Magnesium Level 1.6 MG/DL (1.8-2.4) L Ferritin > 2000 NG/ML (8-388) H Total Bilirubin 16.9 MG/DL (0.2-1.0) H Direct Bilirubin 12.9 MG/DL (0.0-0.3) H Gamma Glutamyl Transpeptidase 692 U/L (5-85) H Aspartate Amino Transf (AST/SGOT) 235 U/L (15-37) H Alanine Aminotransferase (ALT/SGPT) 27 U/L (12-78) Alkaline Phosphatase 389 U/L (46-116) H Ammonia 102 umol/L (11.2-31.7) H Total Creatine Kinase 24 U/L (26-308) L C-Reactive Protein, Quantitative 8.6 mg/dL (0.00-0.90) H Pro-B-Type Natriuretic Peptide 522 (0-125) H Total Protein 4.8 G/DL (6.4-8.2) L Albumin 1.7 G/DL (3.4-5.0) L Globulin 3.1 g/dL Albumin/Globulin Ratio 0.5 (1.0-2.7) L Amylase Level 73 U/L (25-115) Lipase > 1000 U/L (73-393) H Vitamin B12 Level < 30 PG/ML (193-986) L Folate Pending Thyroid Stimulating Hormone (TSH) 3.417 uiU/mL (0.360-3.740) Impression/Recommendations Problems: (1) etoh withdrawal (2) ETOH abuse (3) depression (4) Ascites due to alcoholic cirrhosis (5) Jaundice of recent onset Status: stable, not improved Recommendations # [id number] SURESH MAGDALENO Apr 30, 2017 11:42
[2017-04-30 11:57] LABS: APPEARANCE,URINE SLIGHTLY CLOUDY; KETONES,URINE 2+ (NEGATIVE); LEUKOCYTE ESTERASE ,URINE 2+ (NEGATIVE); PH,URINE 5 (4.5-8.0); PROTEIN,URINE 3+ (NEGATIVE)
[2017-04-30] MEDS ORDERED: Ibuprofen Susp 100mg/5ml PO ONE (12:00)
[2017-04-30 12:05] LABS: UROBILINOGEN,URINE 8 MG/DL (0.0-1.0)
[2017-04-30 12:10] LABS: AMORPHOUS SEDIMENT,UR FEW /LPF; BACTERIA,URINE FEW /HPF; NITRITE,URINE NEGATIVE (NEGATIVE); SQUAMOUS EPITHELIAL CELL,UR OCCASIONAL /LPF (NONE/OCC)
[2017-04-30 12:19] LABS: ICTOTEST POSITIVE
--- NOTE | 2017-04-30 12:28 | General Progress Note ---
Progress Note Progress Note Surgery: slightly improved. off BIPAP and on mask now. states respiratory status improved. BP improved. currently getting paracentesis. Labs improved this morning exam unchanged nothing new to add from surgical standpoint will follow. Alverto Latham Apr 30, 2017 12:28
[2017-04-30] MEDS ORDERED: D5W IV ONE (13:00)
[2017-04-30] MEDS ORDERED: ACETYLCYSTEINE IV ONE (13:00)
[2017-04-30] MEDS: Vitamin B12 1000mcg/ml Inj SUBQ SCH (15:00)
[2017-04-30 15:19] LABS: APPEARANCE, BODY FLUID CLEAR; BD FL SOURCE PARACENTHESIS; BD FL VOLUME 27 mL; BODY FLUID NUCLEATED CELLS 21 /CUMM; BODY FLUID RBC 116 /CUMM; MONONUCLEAR WBC 49 %; POLYMORPHONUCLEAR WBC 4 %
--- NOTE | 2017-04-30 15:46 | Diagnostic Imaging Report ---
Indications: Ascites Technique: Ultrasound used to localize optimal puncture site. Sterile prepping and draping right lower quadrant. Local anesthesia with 1% lidocaine. Under real-time ultrasound guidance, puncture peritoneal space using paracentesis needle. Stylet removed. Catheter placed to vacuum bottle suction. Total 3.1 liters of bright yellow fluid aspirated. Patient tolerated procedure well, without immediate complication. Findings: Followup sonography demonstrates complete resolution of peritoneal fluid. Impression: Successful ultrasound-guided paracentesis, yielding 3.1 liters of bright yellow fluid
--- NOTE | 2017-04-30 15:56 | Infectious Diseases Prog Note ---
Assessment/Plan Problems: (1) Acalculous cholecystitis Assessment & Plan: will start unasyn empirically, recommend HIDA scan , general surgery is following (2) Pneumonia Assessment & Plan: with patchy infiltrates on CT scan of the chest and fever, will switch antibiotics to unasyn , to cover for possible acalculous cholecystitis (3) Jaundice of recent onset Assessment & Plan: suspect alcholic hepatitis related, liver US is pending , GI is following (4) Ascites due to alcoholic cirrhosis Assessment & Plan: rule out SBP , will start ceftriaxon empirically , recommend paracentesis and fluids to be sent for culture , gram stain fungal , and AFB (5) Alcohol abuse Assessment & Plan: recommend counseling and rehabilitation Subjective ROS Limited/Unobtainable: Yes Allergies: Coded Allergies: No Known Allergies (Unverified , 04/29/17) Subjective he feels a little better, on nonrebreathable mask, had paracentesis with fluids is not suggestive of infection, had low grade fever Objective Vital Signs Last 24 Hour Vital Signs Date Time Temp Pulse Resp B/P (MAP) Pulse Ox O2 Delivery O2 Flow Rate FiO2 04/30/17 15:00 110 20 120/59 97 Non-Rebreather 100 04/30/17 14:00 112 22 110/49 97 Non-Rebreather 100 04/30/17 13:00 121 20 115/54 96 Non-Rebreather 100 04/30/17 12:00 112 04/30/17 12:00 99.2 122 23 104/49 96 Non-Rebreather 100 04/30/17 11:00 127 23 105/53 95 Non-Rebreather 100 04/30/17 10:30 127 100/53 04/30/17 10:30 104/45 04/30/17 10:00 121 24 92/47 97 Non-Rebreather 100 04/30/17 09:00 127 25 105/46 97 Non-Rebreather 100 04/30/17 08:00 124 04/30/17 08:00 70 04/30/17 08:00 99.8 130 20 101/47 97 Non-Rebreather 100 04/30/17 07:10 129 23 96 Facial 70 04/30/17 07:00 127 30 103/49 96 Bi-pap 7.0 70 04/30/17 06:00 125 30 112/54 95 Bi-pap 7.0 70 04/30/17 05:00 129 21 112/55 93 Bi-pap 7.0 70 04/30/17 04:39 129 20 95 Facial 70 04/30/17 04:00 129 04/30/17 04:00 98.8 127 26 115/52 97 Bi-pap 7.0 100 04/30/17 03:46 70 04/30/17 03:00 129 20 114/55 96 Bi-pap 7.0 100 04/30/17 02:30 129 22 95 Facial 70 04/30/17 02:00 128 20 110/56 96 Bi-pap 7.0 100 04/30/17 01:00 128 20 113/60 96 Bi-pap 7.0 100 04/30/17 00:54 122 97 Facial 70 04/30/17 00:00 98.5 129 21 133/72 95 Bi-pap 7.0 70 04/30/17 00:00 129 04/29/17 23:15 123 98 Facial 70 04/29/17 23:00 123 20 136/64 96 Bi-pap 7.0 100 04/29/17 23:00 70 04/29/17 22:14 127 21 99/55 97 Bi-pap 04/29/17 22:00 126 04/29/17 22:00 98.5 126 20 128/67 98 Bi-pap 7.0 100 04/29/17 21:47 121 98 Facial 100 04/29/17 20:55 98.8 127 26 95/65 97 Bi-pap 7.0 100 04/29/17 20:31 128 26 Bi-pap 100 04/29/17 20:29 128 96 Facial 100 04/29/17 20:25 7.0 100 04/29/17 17:40 124 19 118/64 97 Simple Mask 7.0 04/29/17 16:00 133 22 105/56 92 Nasal Cannula 4.0 Height (Feet): 5 Height (Inches): 8.00 Weight (Pounds): 206 General Appearance: WD/WN, no acute distress HEENT: normocephalic, atraumatic, PERRL, supple, no JVD Respiratory/Chest: chest wall non-tender, no respiratory distress, no accessory muscle use, decreased breath sounds, crackles/rales Cardiovascular: normal peripheral pulses, normal rate, regular rhythm, no gallop/murmur, no JVD Abdomen: no organomegaly, no mass, no scars, absent bowel sounds, distended, tender Extremities: no cyanosis, no clubbing Skin: no rash, no lesions, no ulcers Neurologic/Psychiatric: alert, oriented x 3 Laboratory Tests Test 04/29/17 16:15 04/29/17 18:00 04/29/17 21:00 04/29/17 23:40 White Blood Count 14.6 K/UL (4.8-10.8) H Red Blood Count 2.25 M/UL (4.70-6.10) L Hemoglobin 9.1 G/DL (14.2-18.0) L Hematocrit 27.5 % (42.0-52.0) L Mean Corpuscular Volume 122 FL (80-99) H Mean Corpuscular Hemoglobin 40.6 PG (27.0-31.0) H Mean Corpuscular Hemoglobin Concent 33.2 G/DL (32.0-36.0) Red Cell Distribution Width 13.9 % (11.6-14.8) Platelet Count 132 K/UL (150-450) L Mean Platelet Volume 5.8 FL (6.5-10.1) L Neutrophils (%) (Auto) 89.3 % (45.0-75.0) H Lymphocytes (%) (Auto) 7.0 % (20.0-45.0) L Monocytes (%) (Auto) 3.3 % (1.0-10.0) Eosinophils (%) (Auto) 0.1 % (0.0-3.0) Basophils (%) (Auto) 0.3 % (0.0-2.0) Prothrombin Time 16.1 SEC (9.30-11.50) H Prothromb Time International Ratio 1.5 (0.9-1.1) H Activated Partial Thromboplast Time 33 SEC (23-33) Sodium Level 131 MMOL/L (136-145) L Potassium Level 3.1 MMOL/L (3.5-5.1) L Chloride Level 89 MMOL/L (98-107) L Carbon Dioxide Level 29 MMOL/L (21-32) Anion Gap 14 (5-15) Blood Urea Nitrogen 24 mg/dL (7-18) H Creatinine 1.5 MG/DL (0.55-1.30) H Estimat Glomerular Filtration Rate 51.8 mL/min (>60) Glucose Level 120 MG/DL (74-106) H Calcium Level 8.1 MG/DL (8.5-10.1) L Total Bilirubin 16.9 MG/DL (0.2-1.0) H Direct Bilirubin 13.8 MG/DL (0.0-0.3) H Aspartate Amino Transf (AST/SGOT) 306 U/L (15-37) H Alanine Aminotransferase (ALT/SGPT) 35 U/L (12-78) Alkaline Phosphatase 533 U/L (46-116) H Total Creatine Kinase 38 U/L (26-308) Creatine Kinase MB 0.6 NG/ML (0.0-3.6) Creatine Kinase MB Relative Index 1.5 Troponin I 0.001 ng/mL (0.000-0.056) Pro-B-Type Natriuretic Peptide 436 (0-125) H Total Protein 5.6 G/DL (6.4-8.2) L Albumin 1.8 G/DL (3.4-5.0) L Globulin 3.8 g/dL Albumin/Globulin Ratio 0.5 (1.0-2.7) L Lipase > 1000 U/L (73-393) H Lactic Acid Level 3.40 mmol/L (0.66-2.22) H 4.40 mmol/L (0.66-2.22) H Urine Opiates Screen Negative (NEGATIVE) Urine Barbiturates Screen Negative (NEGATIVE) Phencyclidine (PCP) Screen Negative (NEGATIVE) Urine Amphetamines Screen Negative (NEGATIVE) Urine Benzodiazepines Screen Negative (NEGATIVE) Urine Cocaine Screen Negative (NEGATIVE) Urine Marijuana (THC) Screen Negative (NEGATIVE) Test 04/30/17 05:05 04/30/17 11:00 04/30/17 12:00 04/30/17 13:45 White Blood Count 13.3 K/UL (4.8-10.8) H Red Blood Count 1.64 M/UL (4.70-6.10) L Hemoglobin 6.9 G/DL (14.2-18.0) *L Hematocrit 19.9 % (42.0-52.0) L Mean Corpuscular Volume 121 FL (80-99) H Mean Corpuscular Hemoglobin 41.9 PG (27.0-31.0) H Mean Corpuscular Hemoglobin Concent 34.7 G/DL (32.0-36.0) Red Cell Distribution Width 13.6 % (11.6-14.8) Platelet Count 114 K/UL (150-450) L Mean Platelet Volume 6.2 FL (6.5-10.1) L Neutrophils (%) (Auto) % (45.0-75.0) Lymphocytes (%) (Auto) % (20.0-45.0) Monocytes (%) (Auto) % (1.0-10.0) Eosinophils (%) (Auto) % (0.0-3.0) Basophils (%) (Auto) % (0.0-2.0) Differential Total Cells Counted 100 Neutrophils % (Manual) 89 % (45-75) H Lymphocytes % (Manual) 7 % (20-45) L Monocytes % (Manual) 4 % (1-10) Eosinophils % (Manual) 0 % (0-3) Basophils % (Manual) 0 % (0-2) Band Neutrophils 0 % (0-8) Platelet Estimate Decreased L Platelet Morphology Normal Hypochromasia 2+ Macrocytosis 1+ Prothrombin Time 18.9 SEC (9.30-11.50) H Prothromb Time International Ratio 1.8 (0.9-1.1) H Activated Partial Thromboplast Time 37 SEC (23-33) H Sodium Level 127 MMOL/L (136-145) L Potassium Level 3.3 MMOL/L (3.5-5.1) L Chloride Level 87 MMOL/L (98-107) L Carbon Dioxide Level 30 MMOL/L (21-32) Anion Gap 10 (5-15) Blood Urea Nitrogen 29 mg/dL (7-18) H Creatinine 2.0 MG/DL (0.55-1.30) H Estimat Glomerular Filtration Rate 37.2 mL/min (>60) Glucose Level 97 MG/DL (74-106) Hemoglobin A1c 4.5 % (4.5-6.2) Lactic Acid Level 3.10 mmol/L (0.66-2.22) H 2.40 mmol/L (0.66-2.22) H Uric Acid 5.5 MG/DL (2.6-7.2) Calcium Level 7.7 MG/DL (8.5-10.1) L Phosphorus Level 3.3 MG/DL (2.5-4.9) Magnesium Level 1.6 MG/DL (1.8-2.4) L Ferritin > 2000 NG/ML (8-388) H Total Bilirubin 16.9 MG/DL (0.2-1.0) H Direct Bilirubin 12.9 MG/DL (0.0-0.3) H Gamma Glutamyl Transpeptidase 692 U/L (5-85) H Aspartate Amino Transf (AST/SGOT) 235 U/L (15-37) H Alanine Aminotransferase (ALT/SGPT) 27 U/L (12-78) Alkaline Phosphatase 389 U/L (46-116) H Ammonia 102 umol/L (11.2-31.7) H Total Creatine Kinase 24 U/L (26-308) L C-Reactive Protein, Quantitative 8.6 mg/dL (0.00-0.90) H Pro-B-Type Natriuretic Peptide 522 (0-125) H Total Protein 4.8 G/DL (6.4-8.2) L Albumin 1.7 G/DL (3.4-5.0) L Globulin 3.1 g/dL Albumin/Globulin Ratio 0.5 (1.0-2.7) L Amylase Level 73 U/L (25-115) Lipase > 1000 U/L (73-393) H Vitamin B12 Level < 30 PG/ML (193-986) L Folate Pending Thyroid Stimulating Hormone (TSH) 3.417 uiU/mL (0.360-3.740) Urine Color Brown Urine Appearance Slightly cloudy Urine pH 5 (4.5-8.0) Urine Specific [place] 1.015 (1.005-1.035) Urine Protein 3+ (NEGATIVE) H Urine Glucose (UA) 1+ (NEGATIVE) H Urine Ketones 2+ (NEGATIVE) H Urine Occult Blood 5+ (NEGATIVE) H Urine Nitrite Negative (NEGATIVE) Urine Bilirubin 3+ (NEGATIVE) H Urine Ictotest Positive Urine Urobilinogen 8 MG/DL (0.0-1.0) H Urine Leukocyte Esterase 2+ (NEGATIVE) H Urine RBC 5-10 /HPF (0 - 0) H Urine WBC 2-4 /HPF (0 - 0) Urine Squamous Epithelial Cells Occasional /LPF Urine Amorphous Sediment Few /LPF (NONE) H Urine Bacteria Few /HPF (NONE) Urine Random Sodium 26 MEQ/L (20-110) Body Fluid Source Pending Body Fluid Volume Pending Body Fluid Appearance Clear Body Fluid RBC 116 /CUMM Body Fluid Total Nucleated Cells 21 /CUMM Body Fluid Polynuclear WBCs (%) 4 % Body Fluid Mononuclear WBCs (%) 49 % Body Fluid Mesothelial Cells (%) 47 % Body Fluid Glucose Pending Body Fluid Total Protein Pending Body Fluid Lactate Dehydrogenase Pending Methylmalonic Acid Pending Vitamin D 25-Hydroxy Pending 25-Hydroxy Vitamin D2 Pending 25-Hydroxy Vitamin D3 Pending Current Medications Medications (Trade) Dose Ordered Sig/Leonard Route PRN Reason Start Time Stop Time Status Last Admin Dose Admin Acetylcysteine 9400 mg/Dextrose 1,047 ml @ 65.438 mls/ hr ONCE ONCE IV 04/30/17 13:00 05/01/17 04:59 Ceftriaxone Sodium 1 gm/ Sodium Chloride 55 ml @ 110 mls/hr Q24HRS IVPB 04/29/17 21:00 05/06/17 20:59 04/30/17 00:11 Cyanocobalamin (Vitamin B12) 1,000 mcg DAILY SUBQ 04/30/17 15:00 05/04/17 09:01 Diazepam (Valium) 10 mg EVERY 4 HOURS PRN ORAL alcohol withdrawl 04/29/17 22:15 05/06/17 22:14 04/30/17 11:21 Folic Acid (Folate) 5 mg DAILY ORAL 04/30/17 15:00 05/30/17 14:59 Folic Acid 1 mg/ Magnesium Sulfate 2000 mg/ Multivitamins 10 ml/Sodium Chloride 1,014.2 ml @ 75 mls/hr Q24H IV 04/30/17 08:00 05/30/17 07:59 04/30/17 08:24 Lorazepam (Ativan 2mg/ml 1ml) 2 mg Q4H PRN IV ANX, agitation 04/29/17 22:15 05/06/17 22:14 04/30/17 06:04 Norepinephrine Bitartrate 4 mg/ Dextrose 250 ml @ 0 mls/hr Q24H IV 04/30/17 10:30 05/30/17 10:29 Pantoprazole (Protonix) 40 mg EVERY 12 HOURS IVP 04/29/17 22:15 05/29/17 22:14 04/30/17 08:24 Prednisone (predniSONE) 40 mg DAILY ORAL 04/30/17 09:00 05/30/17 08:59 04/30/17 08:25 Propranolol HCl (Inderal) 10 mg Q12HR ORAL 04/30/17 10:30 05/30/17 10:29 Sodium Chloride 1,000 ml @ 75 mls/hr [id number] IV 04/30/17 22:30 05/30/17 22:29 04/30/17 01:53 Thiamine HCl 100 mg/Dextrose 56 ml @ 75 mls/hr Q12HR@0800,2000 IVPB 04/30/17 20:00 05/30/17 19:59 Janae Lopez M.D. Apr 30, 2017 15:56
[2017-04-30] MEDS: Ampicillin/Sulbactam Sod 3 GM in NS 110 ML IVPB SCH ×2 (16:57→23:00)
--- NOTE | 2017-04-30 17:00 | Consultation ---
Consult Note Assessment/Plan dict resp failure liver failure, cirrhosis, ascites poss pneumonia, effusions wean BiPAP tap ascites - done abx will follow thanks JAMES NAVARRO Apr 30, 2017 17:00
[2017-04-30] MEDS ORDERED: Thiamine HCl 100 MG in D5W 55 ML IVPB SCH (18:00)
--- NOTE | 2017-04-30 18:30 | Progress Note ---
DATE: 04/30/2017 SUBJECTIVE: This is a patient was in bed. Mother was at bedside him. The patient continues to presents with depressed mood, anxiety. The patient was anxious, having tachycardia, tremor around his mouth and tongue. He was slightly confused. He did not know the year or month. Did not know the day. He was unable to retain information and repeating questions. I educated him in regards to alcohol dependence and his current medical condition. MENTAL STATUS EXAMINATION: Alert and oriented times self, place, and situation he is in. Cooperative with exam. Mood is dysphoric. Affect is flat, congruent with mood. Thought process is concrete. Thought content, no suicidal or homicidal ideation. Cognition is impaired. ASSESSMENT: 1. Alcohol dependence. 2. Major depressive disorder. 3. Alcohol withdrawal. 4. Anxiety. PLAN: 1. We will continue the Valium. 2. Continue the fluoxetine. 3. He does not meet the criteria for 5150, however, he should go after his detox issue to go to inpatient alcohol and drug rehabilitation. Mother was at bedside, they agreed. Trino Kirby M.D. DR: RON JOB#: [id number] CC:
--- NOTE | 2017-04-30 18:37 | GI Progress Note ---
Assessment/Plan Problems: (1) Jaundice of recent onset ICD Codes: R17 - Unspecified jaundice SNOMED: 28267840 (2) etoh withdrawal (3) depression (4) Pneumonia ICD Codes: J18.9 - Pneumonia, unspecified organism SNOMED: 099276384 (5) Acalculous cholecystitis ICD Codes: K81.9 - Cholecystitis, unspecified SNOMED: 40495015 (6) Ascites due to alcoholic cirrhosis ICD Codes: K70.31 - Alcoholic cirrhosis of liver with ascites SNOMED: 6511341908452151 (7) Alcohol abuse ICD Codes: F10.10 - Alcohol abuse, uncomplicated SNOMED: 78997742 Status: unchanged Status Narrative Discussed with Dr. Daly. Assessment/Plan s/p paracentesis yielding 3.1 liters of bright yellow fluid. banana bag abx vit k avoid diuretics for now albumin prednisone 40 monitor labs FLD not transplant candidate given active drinking mucomyst fu labs Subjective Subjective limited, fatigue Objective Last 24 Hour Vital Signs Date Time Temp Pulse Resp B/P (MAP) Pulse Ox O2 Delivery O2 Flow Rate FiO2 04/30/17 17:00 99 20 112/62 98 Non-Rebreather 100 04/30/17 16:00 99 20 111/55 97 Non-Rebreather 100 04/30/17 16:00 100 04/30/17 15:00 110 20 120/59 97 Non-Rebreather 100 04/30/17 14:00 112 22 110/49 97 Non-Rebreather 100 04/30/17 13:00 121 20 115/54 96 Non-Rebreather 100 04/30/17 12:00 112 04/30/17 12:00 99.2 122 23 104/49 96 Non-Rebreather 100 04/30/17 11:00 127 23 105/53 95 Non-Rebreather 100 04/30/17 10:30 127 100/53 04/30/17 10:30 104/45 04/30/17 10:00 121 24 92/47 97 Non-Rebreather 100 04/30/17 09:00 127 25 105/46 97 Non-Rebreather 100 04/30/17 08:00 124 04/30/17 08:00 70 04/30/17 08:00 99.8 130 20 101/47 97 Non-Rebreather 100 04/30/17 07:10 129 23 96 Facial 70 04/30/17 07:00 127 30 103/49 96 Bi-pap 7.0 70 04/30/17 06:00 125 30 112/54 95 Bi-pap 7.0 70 04/30/17 05:00 129 21 112/55 93 Bi-pap 7.0 70 04/30/17 04:39 129 20 95 Facial 70 04/30/17 04:00 129 04/30/17 04:00 98.8 127 26 115/52 97 Bi-pap 7.0 100 04/30/17 03:46 70 04/30/17 03:00 129 20 114/55 96 Bi-pap 7.0 100 04/30/17 02:30 129 22 95 Facial 70 04/30/17 02:00 128 20 110/56 96 Bi-pap 7.0 100 04/30/17 01:00 128 20 113/60 96 Bi-pap 7.0 100 04/30/17 00:54 122 97 Facial 70 04/30/17 00:00 98.5 129 21 133/72 95 Bi-pap 7.0 70 04/30/17 00:00 129 04/29/17 23:15 123 98 Facial 70 04/29/17 23:00 123 20 136/64 96 Bi-pap 7.0 100 04/29/17 23:00 70 04/29/17 22:14 127 21 99/55 97 Bi-pap 04/29/17 22:00 126 04/29/17 22:00 98.5 126 20 128/67 98 Bi-pap 7.0 100 04/29/17 21:47 121 98 Facial 100 04/29/17 20:55 98.8 127 26 95/65 97 Bi-pap 7.0 100 04/29/17 20:31 128 26 Bi-pap 100 04/29/17 20:29 128 96 Facial 100 04/29/17 20:25 7.0 100 Intake and Output 04/30/17 05/01/17 19:00 07:00 Intake Total 995 ml Output Total 190 ml Balance 805 ml IV Total 745 ml Blood Product 250 ml Output Urine Total 190 ml Laboratory Tests Test 04/29/17 21:00 04/29/17 23:40 04/30/17 05:05 04/30/17 11:00 Lactic Acid Level 4.40 mmol/L (0.66-2.22) H 3.10 mmol/L (0.66-2.22) H Urine Opiates Screen Negative (NEGATIVE) Urine Barbiturates Screen Negative (NEGATIVE) Phencyclidine (PCP) Screen Negative (NEGATIVE) Urine Amphetamines Screen Negative (NEGATIVE) Urine Benzodiazepines Screen Negative (NEGATIVE) Urine Cocaine Screen Negative (NEGATIVE) Urine Marijuana (THC) Screen Negative (NEGATIVE) White Blood Count 13.3 K/UL (4.8-10.8) H Red Blood Count 1.64 M/UL (4.70-6.10) L Hemoglobin 6.9 G/DL (14.2-18.0) *L Hematocrit 19.9 % (42.0-52.0) L Mean Corpuscular Volume 121 FL (80-99) H Mean Corpuscular Hemoglobin 41.9 PG (27.0-31.0) H Mean Corpuscular Hemoglobin Concent 34.7 G/DL (32.0-36.0) Red Cell Distribution Width 13.6 % (11.6-14.8) Platelet Count 114 K/UL (150-450) L Mean Platelet Volume 6.2 FL (6.5-10.1) L Neutrophils (%) (Auto) % (45.0-75.0) Lymphocytes (%) (Auto) % (20.0-45.0) Monocytes (%) (Auto) % (1.0-10.0) Eosinophils (%) (Auto) % (0.0-3.0) Basophils (%) (Auto) % (0.0-2.0) Differential Total Cells Counted 100 Neutrophils % (Manual) 89 % (45-75) H Lymphocytes % (Manual) 7 % (20-45) L Monocytes % (Manual) 4 % (1-10) Eosinophils % (Manual) 0 % (0-3) Basophils % (Manual) 0 % (0-2) Band Neutrophils 0 % (0-8) Platelet Estimate Decreased L Platelet Morphology Normal Hypochromasia 2+ Macrocytosis 1+ Prothrombin Time 18.9 SEC (9.30-11.50) H Prothromb Time International Ratio 1.8 (0.9-1.1) H Activated Partial Thromboplast Time 37 SEC (23-33) H Sodium Level 127 MMOL/L (136-145) L Potassium Level 3.3 MMOL/L (3.5-5.1) L Chloride Level 87 MMOL/L (98-107) L Carbon Dioxide Level 30 MMOL/L (21-32) Anion Gap 10 (5-15) Blood Urea Nitrogen 29 mg/dL (7-18) H Creatinine 2.0 MG/DL (0.55-1.30) H Estimat Glomerular Filtration Rate 37.2 mL/min (>60) Glucose Level 97 MG/DL (74-106) Hemoglobin A1c 4.5 % (4.5-6.2) Uric Acid 5.5 MG/DL (2.6-7.2) Calcium Level 7.7 MG/DL (8.5-10.1) L Phosphorus Level 3.3 MG/DL (2.5-4.9) Magnesium Level 1.6 MG/DL (1.8-2.4) L Ferritin > 2000 NG/ML (8-388) H Total Bilirubin 16.9 MG/DL (0.2-1.0) H Direct Bilirubin 12.9 MG/DL (0.0-0.3) H Gamma Glutamyl Transpeptidase 692 U/L (5-85) H Aspartate Amino Transf (AST/SGOT) 235 U/L (15-37) H Alanine Aminotransferase (ALT/SGPT) 27 U/L (12-78) Alkaline Phosphatase 389 U/L (46-116) H Ammonia 102 umol/L (11.2-31.7) H Total Creatine Kinase 24 U/L (26-308) L C-Reactive Protein, Quantitative 8.6 mg/dL (0.00-0.90) H Pro-B-Type Natriuretic Peptide 522 (0-125) H Total Protein 4.8 G/DL (6.4-8.2) L Albumin 1.7 G/DL (3.4-5.0) L Globulin 3.1 g/dL Albumin/Globulin Ratio 0.5 (1.0-2.7) L Amylase Level 73 U/L (25-115) Lipase > 1000 U/L (73-393) H Vitamin B12 Level < 30 PG/ML (193-986) L Folate Pending Thyroid Stimulating Hormone (TSH) 3.417 uiU/mL (0.360-3.740) Urine Color Brown Urine Appearance Slightly cloudy Urine pH 5 (4.5-8.0) Urine Specific [place] 1.015 (1.005-1.035) Urine Protein 3+ (NEGATIVE) H Urine Glucose (UA) 1+ (NEGATIVE) H Urine Ketones 2+ (NEGATIVE) H Urine Occult Blood 5+ (NEGATIVE) H Urine Nitrite Negative (NEGATIVE) Urine Bilirubin 3+ (NEGATIVE) H Urine Ictotest Positive Urine Urobilinogen 8 MG/DL (0.0-1.0) H Urine Leukocyte Esterase 2+ (NEGATIVE) H Urine RBC 5-10 /HPF (0 - 0) H Urine WBC 2-4 /HPF (0 - 0) Urine Squamous Epithelial Cells Occasional /LPF Urine Amorphous Sediment Few /LPF (NONE) H Urine Bacteria Few /HPF (NONE) Urine Random Sodium 26 MEQ/L (20-110) Test 04/30/17 12:00 04/30/17 13:45 Body Fluid Source Pending Body Fluid Volume Pending Body Fluid Appearance Clear Body Fluid RBC 116 /CUMM Body Fluid Total Nucleated Cells 21 /CUMM Body Fluid Polynuclear WBCs (%) 4 % Body Fluid Mononuclear WBCs (%) 49 % Body Fluid Mesothelial Cells (%) 47 % Body Fluid Glucose Pending Body Fluid Total Protein Pending Body Fluid Lactate Dehydrogenase Pending Lactic Acid Level 2.40 mmol/L (0.66-2.22) H Methylmalonic Acid Pending Vitamin D 25-Hydroxy Pending 25-Hydroxy Vitamin D2 Pending 25-Hydroxy Vitamin D3 Pending Height (Feet): 5 Height (Inches): 8.00 Weight (Pounds): 206 General Appearance: no apparent distress, alert Cardiovascular: normal rate Respiratory/Chest: normal breath sounds, no respiratory distress Abdominal Exam: soft Danay Grady N.P. Apr 30, 2017 18:37
[2017-04-30] MEDS: Thiamine HCl 100 MG in D5W 55 ML IVPB SCH (21:07)
--- NOTE | 2017-04-30 21:16 | History and Physical Report ---
DATE OF ADMISSION: 04/29/2017 HISTORY OF PRESENT ILLNESS: The patient is admitted for liver failure. The patient has alcoholic cirrhosis. The patient is encephalopathic, confused. Most of the history is obtained from the mother at the bedside. Mother noticed that the patient was jaundiced for the past 2 days and was getting worse. The patient is confused. He also complains of shortness of breath and very weak. Also according to the mother, he was not eating for the past couple of days and also has complaints of back pain and abdominal pain. Denies heartburn. Denies constipation. Denies nausea. Denies vomiting. Denies rectal bleeding. The patient also complained of shortness of breath. No cough. No chest pain. PAST MEDICAL HISTORY: Alcoholic cirrhosis and history of drug abuse. PAST SURGICAL HISTORY: None. ALLERGIES: No known allergies. MEDICATIONS: Vitamin D3, multivitamin, and thiamine. FAMILY HISTORY: No history of heart disease or hypertension or diabetes. SOCIAL HISTORY: The patient has a history of smoking, history of drug abuse, and history of alcohol abuse. REVIEW OF SYSTEMS: CONSTITUTIONAL: A very poor historian, cannot rely upon his history, however, does complain of weakness, anorexia, fatigue, and shortness of breath. RESPIRATORY: No cough. GASTROINTESTINAL: Some abdominal pain. No constipation. No vomiting. No rectal bleeding. EXTREMITIES: Reports back pain. CENTRAL NERVOUS SYSTEM: No change in vision or speech pattern. Feels very fatigued. PHYSICAL EXAMINATION: VITAL SIGNS: Temperature 99.8, pulse was 125, and blood pressure 112/54. HEENT: Jaundiced. CHEST: Clear to auscultation. CARDIOVASCULAR: Regular rate and rhythm. GASTROINTESTINAL: Soft, distended, and nontender. No rebound. Liver is enlarged. EXTREMITIES: 1+ edema. SKIN: The patient is jaundiced. NEUROLOGIC: Reflexes are equal on both sides. Has generalized weakness. The patient is on non-rebreather mask in ICU, confused. LABORATORY DATA: WBC of 14.6, hemoglobin 9.1, and platelets 132,000. Sodium 127, potassium 3.3, BUN 29, creatinine 2, and glucose of 97. Total bilirubin is 16.9, AST of 235, and ALT of 27. Ammonia is pending. ASSESSMENT AND PLAN: 1. Elevated LFTs 2. Jaundice. 3. Alcoholic cirrhosis. 4. Shortness of breath. 5. Acute renal failure. 6. Electrolyte imbalance. 7. Respiratory insufficiency. 8. I have asked Dr. Lopez, Dr. Mcdowell, Dr. Daly, Dr. Latham, Dr. Martínez, Dr. Kirby, and Dr. Wasserman to see the patient for the above-mentioned diagnoses and treatment and also to prevent the DT in case the patient goes into DT as well. The patient is extremely ill and critical, and is in ICU at this point. Sunday Choi M.D. DR: ALBERT JOB#: [id number] CC:
--- NOTE | 2017-04-30 23:02 | Consultation ---
DATE OF CONSULTATION: 04/30/2017 INFECTIOUS DISEASE CONSULTATION CONSULTING PHYSICIAN: Janae Lopez M.D. REFERRING PHYSICIAN: Sunday Choi M.D. REASON FOR CONSULTATION: Ascites in active alcoholic hepatitis patient, rule out infection, recommendation for antibiotics treatment HISTORY OF PRESENT ILLNESS: The patient is a 42-year-old male with history of alcohol abuse who has been a heavy alcohol drinker, who presented to [facility] emergency room with shortness of breath, severe abdominal distention, and discomfort. The patient also has noticed that his skin color is changing to yellow due to jaundice, which made him concerned, so he presented to the emergency room for further evaluation. He was not able to eat or drink anything for the last couple of days and became more short of breath. In the emergency room, he was found to have significant ascites. His temperature was 98.8. He required non-rebreathable mask to maintain his oxygen saturation since he was hypoxemic and tachypneic. The patient had severe ascites. So, I was consulted by the primary provider for antibiotics treatment since his CT scan also showed question of possible pneumonia. As of note, the patient cannot provide much history at this point. He is on BiPAP. History was mainly obtained from the emergency room medical record. REVIEW OF SYSTEMS: Unable to obtain at this time. PAST MEDICAL HISTORY: Significant for alcohol abuse, alcoholic liver cirrhosis, and ascites. PAST SURGICAL HISTORY: Negative. FAMILY HISTORY: Not contributory. SOCIAL HISTORY: The patient lives with family. Denied using any drugs, tobacco, or alcohol. ALLERGIES: No known drug allergy. MEDICATIONS: The patient received banana bag, potassium, Lasix, lorazepam, and diazepam for possible alcohol withdrawal. For the rest of his medications, please refer to MAR. LABORATORY DATA: Labs showed white count of 14.6, hemoglobin of 9.1 platelet count of 132,000. BUN of 24, creatinine of 1.5, glucose of 120, AST of 306, alkaline phosphatase of 533. Urinalysis showed +2 leukocyte esterase, few bacteria, negative nitrite. IMAGING: Chest x-ray showed low lung volumes, bilateral interstitial and alveolar infiltrates versus edema, bilateral pleural effusion. Abdominal ultrasound showed hepatomegaly, coarsened hepatic echogenicity consistent with hepatocellular disease, gallbladder sludge, no stones, gallbladder wall thickening due to hepatic disease, acute acalculous cholecystitis not completely excluded. CT scan of the abdomen and pelvis showed enlarged liver, diffuse and more focal low attenuation suggests diffuse geographic fatty change, focal area of hepatic surface nodularity suggests early cirrhosis, evidence of portal hypertension due to the above with ascites, mesenteric congestion, splenomegaly, small varices, bilateral pleural effusion, bilateral lower lobe consolidation and atelectases, in partly compressive in nature due to pleural fluid. More focal patchy upper lobe pulmonary parenchymal opacities are nonspecific. PHYSICAL EXAMINATION: VITAL SIGNS: Temperature 98.5, pulse 126, respirations 20, blood pressure 128/67, saturation 98% on BiPAP with FiO2 of 100. GENERAL: Young male, lying in bed, tachypneic, on BiPAP, in mild distress with severe ascites. HEENT: Normocephalic and atraumatic. Pupils reactive to light. Jaundiced sclerae. Normal oral mucosa. No thrush. NECK: Supple. Full range of motion. No stiffness. No lymphadenopathy. CARDIOVASCULAR: Tachycardic. S1 and S2 normal. No murmur. LUNGS: He had crackles. Diminished breathing sounds at the bases with tachypnea. ABDOMEN: Soft, distended with massive ascites. No rebound. Could not appreciate hepatomegaly. Hypoactive bowel sounds. EXTREMITIES: Edema. No cyanosis or clubbing. SKIN: Jaundiced. No rash or hives. ASSESSMENT AND RECOMMENDATION: 1. Ascites due to alcoholic cirrhosis. Rule out spontaneous bacterial peritonitis. We will start the patient empirically on ceftriaxone. Recommend paracentesis and fluid to be sent for culture, Gram stain, fungal, and AFB. Continue diuretics as per Gastroenterology. 2. Jaundice of recent onset, suspect alcoholic hepatitis related. Liver ultrasound is pending. Gastroenterology is following. 3. Alcohol abuse. Recommend counseling and rehabilitation. 4. Elevated liver enzymes, suspect due to acute hepatitis from alcohol intoxication. Rule out cholecystitis. Ultrasound of the abdomen is pending. 5. Acute respiratory failure with pulmonary edema due to fluid overload from liver failure. Continue diuresis and BiPAP for respiratory support. Consult Pulmonary for further evaluation and management. Thank you for the consult. ID will continue to follow. Janae Lopez M.D. DR: JENNIFER JOB#: [id number] CC:
--- NOTE | 2017-04-30 23:02 | Consultation ---
DATE OF CONSULTATION: 04/30/2017 PULMONARY CONSULTATION CHIEF COMPLAINT: Short of breath. HISTORY OF PRESENT ILLNESS: The patient was admitted last night through the emergency department where he presented because of increasing shortness of breath over several days. He had increasing abdominal distention. He was found to have cirrhosis and ascites and pleural effusions. He was placed on BiPAP and admitted to intensive care. I came to see him this morning and he was significantly improved. He has no signs of GI bleeding. He has no cough or sputum and no high fever. He is a cigarette smoker up to one pack per day. He has no history of pulmonary disease. PAST MEDICAL HISTORY: Alcoholism. MEDICATIONS: None. ALLERGIES: None. REVIEW OF SYSTEMS: Limited. PHYSICAL EXAMINATION: GENERAL: The patient was on BiPAP when I examined him this morning. VITAL SIGNS: Elevated heart rate, blood pressure is 92-120 systolic, and has a low-grade temperature up to 99.8 degrees. SKIN: Warm and dry. HEENT: Head is normocephalic. Eyes show scleral icterus. CHEST: Decreased breath sounds in the bases. CARDIAC: Rhythm is regular. Tachycardia. ABDOMEN: Distended, soft and nontender. There is a fluid wave noted. EXTREMITIES: No clubbing or cyanosis. There is 2+ edema. IMPRESSION: 1. Respiratory failure. 2. Liver failure. 3. Cirrhosis with ascites. 4. Alcoholism. 5. Pulmonary infiltrates and effusions, probably due to ascites and possible superimposed pneumonia. PLAN: The patient has been started on antibiotics. We will wean him off the BiPAP and start mask oxygen. I will be happy to follow him closely in the hospital with you. Thank you for asking me to see in consultation. Alexandro Wasserman M.D. DR: AURE JOB#: [id number] CC: Sunday Choi M.D.; Fax#: [phone] ALEXANDRO WASSERMAN M.D. ; FAX#: [phone]
[2017-05-01] VITALS (20 sets, daily range): BP systolic 99–119; BP diastolic 57–93
[2017-05-01] MEDS: LORazepam Inj 2mg/ml 1ml IV PRN ×2 (00:46→23:23)
[2017-05-01] MEDS: Ampicillin/Sulbactam Sod 3 GM in NS 110 ML IVPB SCH ×3 (06:00→23:11)
[2017-05-01 06:48] LABS: INR 1.6 (0.9-1.1); PROTHROMBIN TIME 16.7 SEC (9.30-11.50)
[2017-05-01 07:04] LABS: MEAN CORPUSCULAR HEMOGLOBIN 38.4 PG (27.0-31.0); MEAN CORPUSCULAR HGB CONC 33.9 G/DL (32.0-36.0); MEAN CORPUSCULAR VOLUME 113 FL (80-99); MEAN PLATELET VOLUME 6.2 FL (6.5-10.1); PLATELET COUNT 106 K/UL (150-450); RED BLOOD COUNT 1.94 M/UL (4.70-6.10); RED CELL DISTRIBUTION WIDTH 18.3 % (11.6-14.8); WHITE BLOOD COUNT 12.8 K/UL (4.8-10.8)
[2017-05-01 07:14] LABS: ALANINE AMINOTRANSFERASE 25 U/L (12-78); ALBUMIN/GLOBULIN RATIO 0.6 (1.0-2.7); AMYLASE 60 U/L (25-115); ANION GAP 9 (5-15); ASPARTATE AMINO TRANSFERASE 191 U/L (15-37); CALCIUM 7.9 MG/DL (8.5-10.1); CARBON DIOXIDE 30 MMOL/L (21-32); CHLORIDE 89 MMOL/L (98-107); GLOMERULAR FILTRATION RATE 37.2 mL/min (>60); LIPASE 990 U/L (73-393); POTASSIUM 2.9 MMOL/L (3.5-5.1); SODIUM 128 MMOL/L (136-145); TOTAL PROTEIN 4.8 G/DL (6.4-8.2)
[2017-05-01 07:49] LABS: BILIRUBIN,DIRECT 17.8 MG/DL (0.0-0.3)
[2017-05-01 09:32] LABS: ANISOCYTOSIS 1+; BAND NEUTROPHILS % (MANUAL) 0 % (0-8); BASOPHILS % (MANUAL) 0 % (0-2); EOSINOPHILS % (MANUAL) 0 % (0-3); HYPOCHROMASIA 1+; LYMPHOCYTES % (MANUAL) 11 % (20-45); MACROCYTES 1+; NEUTROPHILS % (MANUAL) 87 % (45-75); PLATELET ESTIMATE DECREASED; PLATELET MORPHOLOGY NORMAL; TOTAL CELLS COUNTED 100
[2017-05-01] MEDS: Pantoprazole Inj IVP SCH ×2 (09:40→21:30)
[2017-05-01] MEDS: Propranolol 10mg tab ORAL SCH ×3 (09:40→17:40)
[2017-05-01] MEDS: Folic Acid 1 MG, Magnesium Sulfate 2,000 MG, Multivitamin - 12 Injection 10 ML in NS w/... IV SCH (09:41)
[2017-05-01] MEDS: Vitamin B12 1000mcg/ml Inj SUBQ SCH (09:41)
[2017-05-01] MEDS: Thiamine HCl 100 MG in D5W 55 ML IVPB SCH ×2 (09:41→23:16)
--- NOTE | 2017-05-01 10:09 | Cardiology Progress Note ---
Assessment/Plan Assessment/Plan The patient is seen and examined, full consult note is dictated. Objective Last 24 Hour Vital Signs Date Time Temp Pulse Resp B/P (MAP) Pulse Ox O2 Delivery O2 Flow Rate FiO2 05/01/17 09:40 110 116/65 05/01/17 08:00 97.4 108 20 100/69 93 Nasal Cannula 4.0 05/01/17 08:00 100 05/01/17 07:20 94 Nasal Cannula 4.0 05/01/17 07:19 Nasal Cannula 4.0 05/01/17 07:00 102 17 115/65 93 Nasal Cannula 4.0 05/01/17 06:00 100 20 110/69 96 Nasal Cannula 4.0 05/01/17 05:00 98.2 104 19 104/60 94 Nasal Cannula 4.0 05/01/17 04:00 107 05/01/17 04:00 104 19 112/60 90 Nasal Cannula 4.0 05/01/17 03:00 105 19 113/57 92 Nasal Cannula 4.0 05/01/17 02:00 107 20 119/64 93 Nasal Cannula 4.0 05/01/17 01:00 106 20 119/63 93 Nasal Cannula 4.0 05/01/17 00:00 108 05/01/17 00:00 98.0 108 20 119/63 93 Nasal Cannula 4.0 04/30/17 23:00 108 20 111/58 93 Nasal Cannula 4.0 04/30/17 22:00 102 20 114/57 93 Nasal Cannula 4.0 04/30/17 21:00 106 20 111/59 92 Nasal Cannula 4.0 04/30/17 21:00 105 100/60 04/30/17 20:00 98.0 106 20 110/61 94 Nasal Cannula 4.0 04/30/17 20:00 106 04/30/17 19:00 106 20 110/61 94 Nasal Cannula 4.0 04/30/17 18:00 102 20 118/66 92 Nasal Cannula 4.0 04/30/17 17:00 99 20 112/62 98 Non-Rebreather 100 04/30/17 16:00 99 20 111/55 97 Non-Rebreather 100 04/30/17 16:00 100 04/30/17 15:00 110 20 120/59 97 Non-Rebreather 100 04/30/17 14:00 112 22 110/49 97 Non-Rebreather 100 04/30/17 13:00 121 20 115/54 96 Non-Rebreather 100 04/30/17 12:00 112 04/30/17 12:00 99.2 122 23 104/49 96 Non-Rebreather 100 04/30/17 11:00 127 23 105/53 95 Non-Rebreather 100 04/30/17 10:30 127 100/53 04/30/17 10:30 104/45 Intake and Output 05/01/17 05/02/17 19:00 07:00 Intake Total 270 ml Output Total 250 ml Balance 20 ml Intake Oral 240 ml Other 30 ml Output Urine Total 250 ml Laboratory Tests Test 04/30/17 11:00 04/30/17 12:00 04/30/17 13:45 05/01/17 04:40 Urine Color Brown Urine Appearance Slightly cloudy Urine pH 5 (4.5-8.0) Urine Specific [place] 1.015 (1.005-1.035) Urine Protein 3+ (NEGATIVE) H Urine Glucose (UA) 1+ (NEGATIVE) H Urine Ketones 2+ (NEGATIVE) H Urine Occult Blood 5+ (NEGATIVE) H Urine Nitrite Negative (NEGATIVE) Urine Bilirubin 3+ (NEGATIVE) H Urine Ictotest Positive Urine Urobilinogen 8 MG/DL (0.0-1.0) H Urine Leukocyte Esterase 2+ (NEGATIVE) H Urine RBC 5-10 /HPF (0 - 0) H Urine WBC 2-4 /HPF (0 - 0) Urine Squamous Epithelial Cells Occasional /LPF Urine Amorphous Sediment Few /LPF (NONE) H Urine Bacteria Few /HPF (NONE) Urine Random Sodium 26 MEQ/L (20-110) Body Fluid Source Pending Body Fluid Volume Pending Body Fluid Appearance Clear Body Fluid RBC 116 /CUMM Body Fluid Total Nucleated Cells 21 /CUMM Body Fluid Polynuclear WBCs (%) 4 % Body Fluid Mononuclear WBCs (%) 49 % Body Fluid Mesothelial Cells (%) 47 % Body Fluid Glucose Pending Body Fluid Total Protein Pending Body Fluid Lactate Dehydrogenase Pending Lactic Acid Level 2.40 mmol/L (0.66-2.22) H Methylmalonic Acid Pending Vitamin D 25-Hydroxy Pending 25-Hydroxy Vitamin D2 Pending 25-Hydroxy Vitamin D3 Pending White Blood Count 12.8 K/UL (4.8-10.8) H Red Blood Count 1.94 M/UL (4.70-6.10) L Hemoglobin 7.5 G/DL (14.2-18.0) L Hematocrit 22.0 % (42.0-52.0) L Mean Corpuscular Volume 113 FL (80-99) H Mean Corpuscular Hemoglobin 38.4 PG (27.0-31.0) H Mean Corpuscular Hemoglobin Concent 33.9 G/DL (32.0-36.0) Red Cell Distribution Width 18.3 % (11.6-14.8) H Platelet Count 106 K/UL (150-450) L Mean Platelet Volume 6.2 FL (6.5-10.1) L Neutrophils (%) (Auto) % (45.0-75.0) Lymphocytes (%) (Auto) % (20.0-45.0) Monocytes (%) (Auto) % (1.0-10.0) Eosinophils (%) (Auto) % (0.0-3.0) Basophils (%) (Auto) % (0.0-2.0) Differential Total Cells Counted 100 Neutrophils % (Manual) 87 % (45-75) H Lymphocytes % (Manual) 11 % (20-45) L Monocytes % (Manual) 2 % (1-10) Eosinophils % (Manual) 0 % (0-3) Basophils % (Manual) 0 % (0-2) Band Neutrophils 0 % (0-8) Platelet Estimate Decreased L Platelet Morphology Normal Hypochromasia 1+ Anisocytosis 1+ Macrocytosis 1+ Prothrombin Time 16.7 SEC (9.30-11.50) H Prothromb Time International Ratio 1.6 (0.9-1.1) H Sodium Level 128 MMOL/L (136-145) L Potassium Level 2.9 MMOL/L (3.5-5.1) L Chloride Level 89 MMOL/L (98-107) L Carbon Dioxide Level 30 MMOL/L (21-32) Anion Gap 9 (5-15) Blood Urea Nitrogen 41 mg/dL (7-18) H Creatinine 2.0 MG/DL (0.55-1.30) H Estimat Glomerular Filtration Rate 37.2 mL/min (>60) Glucose Level 142 MG/DL (74-106) H Calcium Level 7.9 MG/DL (8.5-10.1) L Total Bilirubin 21.1 MG/DL (0.2-1.0) H Direct Bilirubin 17.8 MG/DL (0.0-0.3) H Aspartate Amino Transf (AST/SGOT) 191 U/L (15-37) H Alanine Aminotransferase (ALT/SGPT) 25 U/L (12-78) Alkaline Phosphatase 339 U/L (46-116) H Ammonia 80 umol/L (11.2-31.7) H Total Protein 4.8 G/DL (6.4-8.2) L Albumin 1.8 G/DL (3.4-5.0) L Globulin 3.0 g/dL Albumin/Globulin Ratio 0.6 (1.0-2.7) L Amylase Level 60 U/L (25-115) Lipase 990 U/L (73-393) H Microbiology Date/Time Source Procedure Growth Status 04/29/17 18:10 Blood Blood Culture - Preliminary NO GROWTH AFTER 24 HOURS Resulted 04/29/17 18:00 Blood Blood Culture - Preliminary NO GROWTH AFTER 24 HOURS Resulted YAQUELIN HARDY May 01, 2017 10:09
[2017-05-01] MEDS ORDERED: Tubing Blood Filter IV ONE (11:12)
[2017-05-01] MEDS ORDERED: NS 275ml ONE ×2 (11:12→17:34)
--- NOTE | 2017-05-01 12:26 | General Progress Note ---
Assessment/Plan Status: unchanged Status Narrative Cr 2- K low Assessment/Plan status: renal failure, likely hepatorenal low Na due to anasarca Low K Jaundice Anemia high Lipase High lactic low alb Plan; K IV Urine studies per GI transfuse monitor renal parameters- monitor lytes poor prognosis Subjective ROS Limited/Unobtainable: No Constitutional: Reports: malaise, weakness Allergies: Coded Allergies: No Known Allergies (Unverified , 04/29/17) Objective Last 24 Hour Vital Signs Date Time Temp Pulse Resp B/P (MAP) Pulse Ox O2 Delivery O2 Flow Rate FiO2 05/01/17 11:37 101 105/64 05/01/17 11:00 98 17 111/65 94 Nasal Cannula 4.0 05/01/17 10:30 102/68 05/01/17 10:00 101 19 102/63 94 Nasal Cannula 4.0 05/01/17 09:40 110 116/65 05/01/17 09:00 109 17 105/60 93 Nasal Cannula 4.0 05/01/17 08:00 97.4 108 20 100/69 93 Nasal Cannula 4.0 05/01/17 08:00 100 05/01/17 07:20 94 Nasal Cannula 4.0 05/01/17 07:19 Nasal Cannula 4.0 05/01/17 07:00 102 17 115/65 93 Nasal Cannula 4.0 05/01/17 06:00 100 20 110/69 96 Nasal Cannula 4.0 05/01/17 05:00 98.2 104 19 104/60 94 Nasal Cannula 4.0 05/01/17 04:00 107 05/01/17 04:00 104 19 112/60 90 Nasal Cannula 4.0 05/01/17 03:00 105 19 113/57 92 Nasal Cannula 4.0 05/01/17 02:00 107 20 119/64 93 Nasal Cannula 4.0 05/01/17 01:00 106 20 119/63 93 Nasal Cannula 4.0 05/01/17 00:00 108 05/01/17 00:00 98.0 108 20 119/63 93 Nasal Cannula 4.0 04/30/17 23:00 108 20 111/58 93 Nasal Cannula 4.0 04/30/17 22:00 102 20 114/57 93 Nasal Cannula 4.0 04/30/17 21:00 106 20 111/59 92 Nasal Cannula 4.0 04/30/17 21:00 105 100/60 04/30/17 20:00 98.0 106 20 110/61 94 Nasal Cannula 4.0 04/30/17 20:00 106 04/30/17 19:00 106 20 110/61 94 Nasal Cannula 4.0 04/30/17 18:00 102 20 118/66 92 Nasal Cannula 4.0 04/30/17 17:00 99 20 112/62 98 Non-Rebreather 100 04/30/17 16:00 99 20 111/55 97 Non-Rebreather 100 04/30/17 16:00 100 04/30/17 15:00 110 20 120/59 97 Non-Rebreather 100 04/30/17 14:00 112 22 110/49 97 Non-Rebreather 100 04/30/17 13:00 121 20 115/54 96 Non-Rebreather 100 Intake and Output 05/01/17 05/02/17 19:00 07:00 Intake Total 1067.5 ml Output Total 350 ml Balance 717.5 ml Intake Oral 240 ml IV Total 787.5 ml Other 40 ml Output Urine Total 350 ml Laboratory Tests 04/30/17 13:45: Lactic Acid Level 2.40H, Methylmalonic Acid [Pending], Vitamin D 25-Hydroxy [ Pending], 25-Hydroxy Vitamin D2 [Pending], 25-Hydroxy Vitamin D3 [Pending] 05/01/17 04:40: White Blood Count 12.8H, Red Blood Count 1.94L, Hemoglobin 7.5L, Hematocrit 22.0L, Mean Corpuscular Volume 113H, Mean Corpuscular Hemoglobin 38.4H, Mean Corpuscular Hemoglobin Concent 33.9, Red Cell Distribution Width 18.3H, Platelet Count 106L, Mean Platelet Volume 6.2L, Neutrophils (%) (Auto) , Lymphocytes (%) (Auto) , Monocytes (%) (Auto) , Eosinophils (%) (Auto) , Basophils (%) (Auto) , Differential Total Cells Counted 100, Neutrophils % ( Manual) 87H, Lymphocytes % (Manual) 11L, Monocytes % (Manual) 2, Eosinophils % ( Manual) 0, Basophils % (Manual) 0, Band Neutrophils 0, Platelet Estimate DecreasedL, Platelet Morphology Normal, Hypochromasia 1+, Anisocytosis 1+, Macrocytosis 1+, Prothrombin Time 16.7H, Prothromb Time International Ratio 1.6H , Sodium Level 128L, Potassium Level 2.9L, Chloride Level 89L, Carbon Dioxide Level 30, Anion Gap 9, Blood Urea Nitrogen 41H, Creatinine 2.0H, Estimat Glomerular Filtration Rate 37.2, Glucose Level 142H, Calcium Level 7.9L, Total Bilirubin 21.1H, Direct Bilirubin 17.8H, Aspartate Amino Transf (AST/SGOT) 191H , Alanine Aminotransferase (ALT/SGPT) 25, Alkaline Phosphatase 339H, Ammonia 80H , Total Protein 4.8L, Albumin 1.8L, Globulin 3.0, Albumin/Globulin Ratio 0.6L, Amylase Level 60, Lipase 990H Height (Feet): 5 Height (Inches): 8.00 Weight (Pounds): 205 General Appearance: other - mind clearer- deeply jaundiced Cardiovascular: tachycardia Respiratory/Chest: decreased breath sounds Abdomen: other - ascitis Objective MIKAELA Mcdowell May 01, 2017 12:26
--- NOTE | 2017-05-01 12:53 | General Progress Note ---
Progress Note Progress Note Surgery: no acute events. off face mask and on nasal cannula now. had paracentesis yesterday and more comfortable today. labs reviewed, exam stable, VSS no acute surgical intervention will follow Alverto Latham May 01, 2017 12:53
--- NOTE | 2017-05-01 13:04 | GI Progress Note ---
Assessment/Plan Problems: (1) Jaundice of recent onset ICD Codes: R17 - Unspecified jaundice SNOMED: 03038245 (2) etoh withdrawal (3) depression (4) Pneumonia ICD Codes: J18.9 - Pneumonia, unspecified organism SNOMED: 713869331 (5) Acalculous cholecystitis ICD Codes: K81.9 - Cholecystitis, unspecified SNOMED: 16876845 (6) Ascites due to alcoholic cirrhosis ICD Codes: K70.31 - Alcoholic cirrhosis of liver with ascites SNOMED: 4161222620467266 (7) Alcohol abuse ICD Codes: F10.10 - Alcohol abuse, uncomplicated SNOMED: 99650973 Status: unchanged Status Narrative Discussed with Dr. Daly. Assessment/Plan s/p paracentesis yielding 3.1 liters of bright yellow fluid. elevated ammonia >> downtrending banana bag abx avoid diuretics for now albumin prednisone 40mg monitor LFTs FLD not transplant candidate given active drinking mucomyst fu labs Subjective Subjective limited, fatigue Objective Last 24 Hour Vital Signs Date Time Temp Pulse Resp B/P (MAP) Pulse Ox O2 Delivery O2 Flow Rate FiO2 05/01/17 12:00 99 05/01/17 11:37 101 105/64 05/01/17 11:00 98 17 111/65 94 Nasal Cannula 4.0 05/01/17 10:30 102/68 05/01/17 10:00 101 19 102/63 94 Nasal Cannula 4.0 05/01/17 09:40 110 116/65 05/01/17 09:00 109 17 105/60 93 Nasal Cannula 4.0 05/01/17 08:00 97.4 108 20 100/69 93 Nasal Cannula 4.0 05/01/17 08:00 100 05/01/17 07:20 94 Nasal Cannula 4.0 05/01/17 07:19 Nasal Cannula 4.0 05/01/17 07:00 102 17 115/65 93 Nasal Cannula 4.0 05/01/17 06:00 100 20 110/69 96 Nasal Cannula 4.0 05/01/17 05:00 98.2 104 19 104/60 94 Nasal Cannula 4.0 05/01/17 04:00 107 05/01/17 04:00 104 19 112/60 90 Nasal Cannula 4.0 05/01/17 03:00 105 19 113/57 92 Nasal Cannula 4.0 05/01/17 02:00 107 20 119/64 93 Nasal Cannula 4.0 05/01/17 01:00 106 20 119/63 93 Nasal Cannula 4.0 05/01/17 00:00 108 05/01/17 00:00 98.0 108 20 119/63 93 Nasal Cannula 4.0 04/30/17 23:00 108 20 111/58 93 Nasal Cannula 4.0 04/30/17 22:00 102 20 114/57 93 Nasal Cannula 4.0 04/30/17 21:00 106 20 111/59 92 Nasal Cannula 4.0 04/30/17 21:00 105 100/60 04/30/17 20:00 98.0 106 20 110/61 94 Nasal Cannula 4.0 04/30/17 20:00 106 04/30/17 19:00 106 20 110/61 94 Nasal Cannula 4.0 04/30/17 18:00 102 20 118/66 92 Nasal Cannula 4.0 04/30/17 17:00 99 20 112/62 98 Non-Rebreather 100 04/30/17 16:00 99 20 111/55 97 Non-Rebreather 100 04/30/17 16:00 100 04/30/17 15:00 110 20 120/59 97 Non-Rebreather 100 04/30/17 14:00 112 22 110/49 97 Non-Rebreather 100 Intake and Output 05/01/17 05/02/17 19:00 07:00 Intake Total 1067.5 ml Output Total 350 ml Balance 717.5 ml Intake Oral 240 ml IV Total 787.5 ml Other 40 ml Output Urine Total 350 ml Laboratory Tests Test 04/30/17 13:45 05/01/17 04:40 Lactic Acid Level 2.40 mmol/L (0.66-2.22) H Methylmalonic Acid Pending Vitamin D 25-Hydroxy Pending 25-Hydroxy Vitamin D2 Pending 25-Hydroxy Vitamin D3 Pending White Blood Count 12.8 K/UL (4.8-10.8) H Red Blood Count 1.94 M/UL (4.70-6.10) L Hemoglobin 7.5 G/DL (14.2-18.0) L Hematocrit 22.0 % (42.0-52.0) L Mean Corpuscular Volume 113 FL (80-99) H Mean Corpuscular Hemoglobin 38.4 PG (27.0-31.0) H Mean Corpuscular Hemoglobin Concent 33.9 G/DL (32.0-36.0) Red Cell Distribution Width 18.3 % (11.6-14.8) H Platelet Count 106 K/UL (150-450) L Mean Platelet Volume 6.2 FL (6.5-10.1) L Neutrophils (%) (Auto) % (45.0-75.0) Lymphocytes (%) (Auto) % (20.0-45.0) Monocytes (%) (Auto) % (1.0-10.0) Eosinophils (%) (Auto) % (0.0-3.0) Basophils (%) (Auto) % (0.0-2.0) Differential Total Cells Counted 100 Neutrophils % (Manual) 87 % (45-75) H Lymphocytes % (Manual) 11 % (20-45) L Monocytes % (Manual) 2 % (1-10) Eosinophils % (Manual) 0 % (0-3) Basophils % (Manual) 0 % (0-2) Band Neutrophils 0 % (0-8) Platelet Estimate Decreased L Platelet Morphology Normal Hypochromasia 1+ Anisocytosis 1+ Macrocytosis 1+ Prothrombin Time 16.7 SEC (9.30-11.50) H Prothromb Time International Ratio 1.6 (0.9-1.1) H Sodium Level 128 MMOL/L (136-145) L Potassium Level 2.9 MMOL/L (3.5-5.1) L Chloride Level 89 MMOL/L (98-107) L Carbon Dioxide Level 30 MMOL/L (21-32) Anion Gap 9 (5-15) Blood Urea Nitrogen 41 mg/dL (7-18) H Creatinine 2.0 MG/DL (0.55-1.30) H Estimat Glomerular Filtration Rate 37.2 mL/min (>60) Glucose Level 142 MG/DL (74-106) H Calcium Level 7.9 MG/DL (8.5-10.1) L Total Bilirubin 21.1 MG/DL (0.2-1.0) H Direct Bilirubin 17.8 MG/DL (0.0-0.3) H Aspartate Amino Transf (AST/SGOT) 191 U/L (15-37) H Alanine Aminotransferase (ALT/SGPT) 25 U/L (12-78) Alkaline Phosphatase 339 U/L (46-116) H Ammonia 80 umol/L (11.2-31.7) H Total Protein 4.8 G/DL (6.4-8.2) L Albumin 1.8 G/DL (3.4-5.0) L Globulin 3.0 g/dL Albumin/Globulin Ratio 0.6 (1.0-2.7) L Amylase Level 60 U/L (25-115) Lipase 990 U/L (73-393) H Height (Feet): 5 Height (Inches): 8.00 Weight (Pounds): 205 General Appearance: no apparent distress, alert, overweight Cardiovascular: normal rate Respiratory/Chest: other - NC Abdominal Exam: distended, ascites Objective Jaundice Danay Grady N.P. May 01, 2017 13:04
[2017-05-01] MEDS: Lactulose 20gm/30ml UDC ORAL SCH ×2 (13:43→17:40)
--- NOTE | 2017-05-01 16:35 | Pulmonology Progress Note ---
Assessment/Plan Assessment/Plan 1. Respiratory failure. 2. Liver failure. 3. Cirrhosis with ascites. 4. Alcoholism. 5. Pulmonary infiltrates and effusions, probably due to ascites and possible superimposed pneumonia. doing well off BiPAP mild SOB No distress sat OK on 4 liters 3 liters ascites removed improved disc w RN, mom Subjective Respiratory: Reports: shortness of breath Allergies: Coded Allergies: No Known Allergies (Unverified , 04/29/17) Objective Last 24 Hour Vital Signs Date Time Temp Pulse Resp B/P (MAP) Pulse Ox O2 Delivery O2 Flow Rate FiO2 05/01/17 16:00 98.4 91 20 107/61 94 Nasal Cannula 4.0 05/01/17 16:00 94 05/01/17 15:00 92 19 102/61 94 Nasal Cannula 4.0 05/01/17 14:00 94 18 99/57 93 Nasal Cannula 4.0 05/01/17 13:00 96 19 108/65 92 Nasal Cannula 4.0 05/01/17 12:00 98.1 100 17 105/69 94 Nasal Cannula 4.0 05/01/17 12:00 99 05/01/17 11:37 101 105/64 05/01/17 11:00 98 17 111/65 94 Nasal Cannula 4.0 05/01/17 10:30 102/68 05/01/17 10:00 101 19 102/63 94 Nasal Cannula 4.0 05/01/17 09:40 110 116/65 05/01/17 09:00 109 17 105/60 93 Nasal Cannula 4.0 05/01/17 08:00 97.4 108 20 100/69 93 Nasal Cannula 4.0 05/01/17 08:00 100 05/01/17 07:20 94 Nasal Cannula 4.0 05/01/17 07:19 Nasal Cannula 4.0 05/01/17 07:00 102 17 115/65 93 Nasal Cannula 4.0 05/01/17 06:00 100 20 110/69 96 Nasal Cannula 4.0 05/01/17 05:00 98.2 104 19 104/60 94 Nasal Cannula 4.0 05/01/17 04:00 107 05/01/17 04:00 104 19 112/60 90 Nasal Cannula 4.0 05/01/17 03:00 105 19 113/57 92 Nasal Cannula 4.0 05/01/17 02:00 107 20 119/64 93 Nasal Cannula 4.0 05/01/17 01:00 106 20 119/63 93 Nasal Cannula 4.0 05/01/17 00:00 108 05/01/17 00:00 98.0 108 20 119/63 93 Nasal Cannula 4.0 04/30/17 23:00 108 20 111/58 93 Nasal Cannula 4.0 04/30/17 22:00 102 20 114/57 93 Nasal Cannula 4.0 04/30/17 21:00 106 20 111/59 92 Nasal Cannula 4.0 04/30/17 21:00 105 100/60 04/30/17 20:00 98.0 106 20 110/61 94 Nasal Cannula 4.0 04/30/17 20:00 106 04/30/17 19:00 106 20 110/61 94 Nasal Cannula 4.0 04/30/17 18:00 102 20 118/66 92 Nasal Cannula 4.0 04/30/17 17:00 99 20 112/62 98 Non-Rebreather 100 Intake and Output 05/01/17 05/02/17 19:00 07:00 Intake Total 2415.5 ml Output Total 500 ml Balance 1915.5 ml Intake Oral 700 ml IV Total 1675.5 ml Other 40 ml Output Urine Total 500 ml Objective jaundice General Appearance: no acute distress HEENT: other - icteric Respiratory/Chest: lungs clear Cardiovascular: normal rate Abdomen: soft, non tender, no organomegaly, other - ascites Extremities: no cyanosis, no clubbing Microbiology Date/Time Source Procedure Growth Status 04/29/17 18:10 Blood Blood Culture - Preliminary NO GROWTH AFTER 24 HOURS Resulted 04/29/17 18:00 Blood Blood Culture - Preliminary NO GROWTH AFTER 24 HOURS Resulted 04/30/17 12:00 Abdominal Fluid Gram Stain - Final Resulted 04/30/17 12:00 Abdominal Fluid Body Fluid Culture - Preliminary NO GROWTH Resulted Laboratory Tests 05/01/17 04:40: White Blood Count 12.8H, Red Blood Count 1.94L, Hemoglobin 7.5L, Hematocrit 22.0L, Mean Corpuscular Volume 113H, Mean Corpuscular Hemoglobin 38.4H, Mean Corpuscular Hemoglobin Concent 33.9, Red Cell Distribution Width 18.3H, Platelet Count 106L, Mean Platelet Volume 6.2L, Neutrophils (%) (Auto) , Lymphocytes (%) (Auto) , Monocytes (%) (Auto) , Eosinophils (%) (Auto) , Basophils (%) (Auto) , Differential Total Cells Counted 100, Neutrophils % ( Manual) 87H, Lymphocytes % (Manual) 11L, Monocytes % (Manual) 2, Eosinophils % ( Manual) 0, Basophils % (Manual) 0, Band Neutrophils 0, Platelet Estimate DecreasedL, Platelet Morphology Normal, Hypochromasia 1+, Anisocytosis 1+, Macrocytosis 1+, Prothrombin Time 16.7H, Prothromb Time International Ratio 1.6H , Sodium Level 128L, Potassium Level 2.9L, Chloride Level 89L, Carbon Dioxide Level 30, Anion Gap 9, Blood Urea Nitrogen 41H, Creatinine 2.0H, Estimat Glomerular Filtration Rate 37.2, Glucose Level 142H, Calcium Level 7.9L, Total Bilirubin 21.1H, Direct Bilirubin 17.8H, Aspartate Amino Transf (AST/SGOT) 191H , Alanine Aminotransferase (ALT/SGPT) 25, Alkaline Phosphatase 339H, Ammonia 80H , Total Protein 4.8L, Albumin 1.8L, Globulin 3.0, Albumin/Globulin Ratio 0.6L, Amylase Level 60, Lipase 990H 05/01/17 15:15: Phosphorus Level 1.8L, Hepatitis A IgM Antibody [Pending], Hepatitis B Surface Antigen [Pending], Hepatitis B Core IgM Antibody [Pending], Hepatitis C Antibody [Pending], HIV (1&2) Antibody Rapid [Pending] Current Medications Medications (Trade) Dose Ordered Sig/Leonard Route PRN Reason Start Time Stop Time Status Last Admin Dose Admin Ampicillin Sodium/ Sulbactam Sodium 3 gm/Sodium Chloride 110 ml @ 220 mls/hr Q8HR IVPB 04/30/17 17:00 05/07/17 16:59 05/01/17 14:19 Cyanocobalamin (Vitamin B12) 1,000 mcg DAILY SUBQ 04/30/17 15:00 05/04/17 09:01 05/01/17 09:41 Diazepam (Valium) 10 mg EVERY 4 HOURS PRN ORAL alcohol withdrawl 04/29/17 22:15 05/06/17 22:14 04/30/17 11:21 Folic Acid (Folate) 5 mg DAILY ORAL 04/30/17 15:00 05/30/17 14:59 05/01/17 09:40 Folic Acid 1 mg/ Magnesium Sulfate 2000 mg/ Multivitamins 10 ml/Sodium Chloride 1,014.2 ml @ 75 mls/hr Q24H IV 04/30/17 08:00 05/30/17 07:59 05/01/17 09:41 Lactulose (Cephulac) 30 gm THREE TIMES A DAY ORAL 05/01/17 13:30 05/31/17 13:29 05/01/17 13:43 Lorazepam (Ativan 2mg/ml 1ml) 2 mg Q4H PRN IV ANX, agitation 04/29/17 22:15 05/06/17 22:14 05/01/17 00:46 Midodrine (Pro-Amatine) 7.5 mg THREE TIMES A DAY ORAL 05/01/17 18:00 05/31/17 17:59 Norepinephrine Bitartrate 4 mg/ Dextrose 250 ml @ 0 mls/hr Q24H IV 04/30/17 10:30 05/30/17 10:29 Octreotide Acetate 500 mcg/ Sodium Chloride 500 ml @ 50 mls/hr Q10H IV 05/01/17 17:15 05/31/17 17:14 Pantoprazole (Protonix) 40 mg EVERY 12 HOURS IVP 04/29/17 22:15 05/29/17 22:14 05/01/17 09:40 Prednisone (predniSONE) 40 mg DAILY ORAL 04/30/17 09:00 05/30/17 08:59 05/01/17 09:40 Propranolol HCl (Inderal) 10 mg EVERY 6 HOURS ORAL 05/01/17 12:00 05/30/17 10:29 05/01/17 11:37 Rifaximin (Xifaxan) 550 mg EVERY 12 HOURS ORAL 05/01/17 21:00 05/08/17 20:59 Sodium Chloride 1,000 ml @ 50 mls/hr Q20H IV 05/01/17 14:00 05/31/17 13:59 05/01/17 13:44 Thiamine HCl 100 mg/Dextrose 56 ml @ 75 mls/hr Q12HR@0800,2000 IVPB 04/30/17 20:00 05/30/17 19:59 05/01/17 09:41 JAMES NAVARRO May 01, 2017 16:35
--- NOTE | 2017-05-01 16:41 | Infectious Diseases Prog Note ---
Assessment/Plan Problems: (1) Acalculous cholecystitis Assessment & Plan: on unasyn empirically, recommend HIDA scan , general surgery is following (2) Pneumonia Assessment & Plan: with patchy infiltrates on CT scan of the chest and fever, on unasyn , and to cover for possible acalculous cholecystitis (3) Jaundice of recent onset Assessment & Plan: suspect alcholic hepatitis related, on oral prednisone , GI is following (4) Ascites due to alcoholic cirrhosis Assessment & Plan: S/P paracentesis with no evidence of fluids infection , already on unasyn , await culture (5) Alcohol abuse Assessment & Plan: recommend counseling and rehabilitation Subjective Constitutional: Reports: fatigue HEENT: Reports: no symptoms Respiratory: Reports: no symptoms Breasts: Reports: no symptoms Cardiovascular: Reports: no symptoms Gastrointestinal/Abdominal: Reports: nausea, diarrhea, bloating Genitourinary: Reports: no symptoms Neurologic: Reports: weakness Psychiatric: Reports: depression Skin: Reports: other - jaundiced Endocrine: Reports: no symptoms Hematologic: Reports: no symptoms Musculoskeletal: Reports: swelling Allergies: Coded Allergies: No Known Allergies (Unverified , 04/29/17) Subjective he feels a little better, on nonrebreathable mask, had paracentesis with fluids is not suggestive of infection, had low grade fever Objective Vital Signs Last 24 Hour Vital Signs Date Time Temp Pulse Resp B/P (MAP) Pulse Ox O2 Delivery O2 Flow Rate FiO2 05/01/17 16:00 98.4 91 20 107/61 94 Nasal Cannula 4.0 05/01/17 16:00 94 05/01/17 15:00 92 19 102/61 94 Nasal Cannula 4.0 05/01/17 14:00 94 18 99/57 93 Nasal Cannula 4.0 05/01/17 13:00 96 19 108/65 92 Nasal Cannula 4.0 05/01/17 12:00 98.1 100 17 105/69 94 Nasal Cannula 4.0 05/01/17 12:00 99 05/01/17 11:37 101 105/64 05/01/17 11:00 98 17 111/65 94 Nasal Cannula 4.0 05/01/17 10:30 102/68 05/01/17 10:00 101 19 102/63 94 Nasal Cannula 4.0 05/01/17 09:40 110 116/65 05/01/17 09:00 109 17 105/60 93 Nasal Cannula 4.0 05/01/17 08:00 97.4 108 20 100/69 93 Nasal Cannula 4.0 05/01/17 08:00 100 05/01/17 07:20 94 Nasal Cannula 4.0 05/01/17 07:19 Nasal Cannula 4.0 05/01/17 07:00 102 17 115/65 93 Nasal Cannula 4.0 05/01/17 06:00 100 20 110/69 96 Nasal Cannula 4.0 05/01/17 05:00 98.2 104 19 104/60 94 Nasal Cannula 4.0 05/01/17 04:00 107 05/01/17 04:00 104 19 112/60 90 Nasal Cannula 4.0 05/01/17 03:00 105 19 113/57 92 Nasal Cannula 4.0 05/01/17 02:00 107 20 119/64 93 Nasal Cannula 4.0 05/01/17 01:00 106 20 119/63 93 Nasal Cannula 4.0 05/01/17 00:00 108 05/01/17 00:00 98.0 108 20 119/63 93 Nasal Cannula 4.0 04/30/17 23:00 108 20 111/58 93 Nasal Cannula 4.0 04/30/17 22:00 102 20 114/57 93 Nasal Cannula 4.0 04/30/17 21:00 106 20 111/59 92 Nasal Cannula 4.0 04/30/17 21:00 105 100/60 04/30/17 20:00 98.0 106 20 110/61 94 Nasal Cannula 4.0 04/30/17 20:00 106 04/30/17 19:00 106 20 110/61 94 Nasal Cannula 4.0 04/30/17 18:00 102 20 118/66 92 Nasal Cannula 4.0 04/30/17 17:00 99 20 112/62 98 Non-Rebreather 100 Height (Feet): 5 Height (Inches): 8.00 Weight (Pounds): 205 General Appearance: no acute distress - jaundiced, and had significant edema , other HEENT: normocephalic, atraumatic, anicteric, mucous membranes moist Respiratory/Chest: chest wall non-tender, lungs clear, normal breath sounds, no respiratory distress, no accessory muscle use Cardiovascular: normal peripheral pulses, normal rate, regular rhythm, no gallop/murmur, no JVD Abdomen: normal bowel sounds, soft, non tender, no organomegaly, non distended , no mass, no scars Extremities: no cyanosis, no clubbing Skin: no rash, no lesions, no ulcers, other - jaundiced Neurologic/Psychiatric: alert, oriented x 3, responsive Lymphatic: no neck adenopathy, no groin adenopathy Microbiology Date/Time Source Procedure Growth Status 04/29/17 18:10 Blood Blood Culture - Preliminary NO GROWTH AFTER 24 HOURS Resulted 04/29/17 18:00 Blood Blood Culture - Preliminary NO GROWTH AFTER 24 HOURS Resulted 04/30/17 12:00 Abdominal Fluid Gram Stain - Final Resulted 04/30/17 12:00 Abdominal Fluid Body Fluid Culture - Preliminary NO GROWTH Resulted Laboratory Tests Test 05/01/17 04:40 05/01/17 15:15 White Blood Count 12.8 K/UL (4.8-10.8) H Red Blood Count 1.94 M/UL (4.70-6.10) L Hemoglobin 7.5 G/DL (14.2-18.0) L Hematocrit 22.0 % (42.0-52.0) L Mean Corpuscular Volume 113 FL (80-99) H Mean Corpuscular Hemoglobin 38.4 PG (27.0-31.0) H Mean Corpuscular Hemoglobin Concent 33.9 G/DL (32.0-36.0) Red Cell Distribution Width 18.3 % (11.6-14.8) H Platelet Count 106 K/UL (150-450) L Mean Platelet Volume 6.2 FL (6.5-10.1) L Neutrophils (%) (Auto) % (45.0-75.0) Lymphocytes (%) (Auto) % (20.0-45.0) Monocytes (%) (Auto) % (1.0-10.0) Eosinophils (%) (Auto) % (0.0-3.0) Basophils (%) (Auto) % (0.0-2.0) Differential Total Cells Counted 100 Neutrophils % (Manual) 87 % (45-75) H Lymphocytes % (Manual) 11 % (20-45) L Monocytes % (Manual) 2 % (1-10) Eosinophils % (Manual) 0 % (0-3) Basophils % (Manual) 0 % (0-2) Band Neutrophils 0 % (0-8) Platelet Estimate Decreased L Platelet Morphology Normal Hypochromasia 1+ Anisocytosis 1+ Macrocytosis 1+ Prothrombin Time 16.7 SEC (9.30-11.50) H Prothromb Time International Ratio 1.6 (0.9-1.1) H Sodium Level 128 MMOL/L (136-145) L Potassium Level 2.9 MMOL/L (3.5-5.1) L Chloride Level 89 MMOL/L (98-107) L Carbon Dioxide Level 30 MMOL/L (21-32) Anion Gap 9 (5-15) Blood Urea Nitrogen 41 mg/dL (7-18) H Creatinine 2.0 MG/DL (0.55-1.30) H Estimat Glomerular Filtration Rate 37.2 mL/min (>60) Glucose Level 142 MG/DL (74-106) H Calcium Level 7.9 MG/DL (8.5-10.1) L Total Bilirubin 21.1 MG/DL (0.2-1.0) H Direct Bilirubin 17.8 MG/DL (0.0-0.3) H Aspartate Amino Transf (AST/SGOT) 191 U/L (15-37) H Alanine Aminotransferase (ALT/SGPT) 25 U/L (12-78) Alkaline Phosphatase 339 U/L (46-116) H Ammonia 80 umol/L (11.2-31.7) H Total Protein 4.8 G/DL (6.4-8.2) L Albumin 1.8 G/DL (3.4-5.0) L Globulin 3.0 g/dL Albumin/Globulin Ratio 0.6 (1.0-2.7) L Amylase Level 60 U/L (25-115) Lipase 990 U/L (73-393) H Phosphorus Level 1.8 MG/DL (2.5-4.9) L Hepatitis A IgM Antibody Pending Hepatitis B Surface Antigen Pending Hepatitis B Core IgM Antibody Pending Hepatitis C Antibody Pending HIV (1&2) Antibody Rapid Pending Current Medications Medications (Trade) Dose Ordered Sig/Leonard Route PRN Reason Start Time Stop Time Status Last Admin Dose Admin Ampicillin Sodium/ Sulbactam Sodium 3 gm/Sodium Chloride 110 ml @ 220 mls/hr Q8HR IVPB 04/30/17 17:00 05/07/17 16:59 05/01/17 14:19 Cyanocobalamin (Vitamin B12) 1,000 mcg DAILY SUBQ 04/30/17 15:00 05/04/17 09:01 05/01/17 09:41 Diazepam (Valium) 10 mg EVERY 4 HOURS PRN ORAL alcohol withdrawl 04/29/17 22:15 05/06/17 22:14 04/30/17 11:21 Folic Acid (Folate) 5 mg DAILY ORAL 04/30/17 15:00 05/30/17 14:59 05/01/17 09:40 Folic Acid 1 mg/ Magnesium Sulfate 2000 mg/ Multivitamins 10 ml/Sodium Chloride 1,014.2 ml @ 75 mls/hr Q24H IV 04/30/17 08:00 05/30/17 07:59 05/01/17 09:41 Lactulose (Cephulac) 30 gm THREE TIMES A DAY ORAL 05/01/17 13:30 05/31/17 13:29 05/01/17 13:43 Lorazepam (Ativan 2mg/ml 1ml) 2 mg Q4H PRN IV ANX, agitation 04/29/17 22:15 05/06/17 22:14 05/01/17 00:46 Midodrine (Pro-Amatine) 7.5 mg THREE TIMES A DAY ORAL 05/01/17 18:00 05/31/17 17:59 Norepinephrine Bitartrate 4 mg/ Dextrose 250 ml @ 0 mls/hr Q24H IV 04/30/17 10:30 05/30/17 10:29 Octreotide Acetate 500 mcg/ Sodium Chloride 500 ml @ 50 mls/hr Q10H IV 05/01/17 17:15 05/31/17 17:14 Pantoprazole (Protonix) 40 mg EVERY 12 HOURS IVP 04/29/17 22:15 05/29/17 22:14 05/01/17 09:40 Prednisone (predniSONE) 40 mg DAILY ORAL 04/30/17 09:00 05/30/17 08:59 05/01/17 09:40 Propranolol HCl (Inderal) 10 mg EVERY 6 HOURS ORAL 05/01/17 12:00 05/30/17 10:29 05/01/17 11:37 Rifaximin (Xifaxan) 550 mg EVERY 12 HOURS ORAL 05/01/17 21:00 05/08/17 20:59 Sodium Chloride 1,000 ml @ 50 mls/hr Q20H IV 05/01/17 14:00 05/31/17 13:59 05/01/17 13:44 Thiamine HCl 100 mg/Dextrose 56 ml @ 75 mls/hr Q12HR@0800,2000 IVPB 04/30/17 20:00 05/30/17 19:59 05/01/17 09:41 Janae Lopez M.D. May 01, 2017 16:41
[2017-05-01] MEDS ORDERED: Octreotide Acetate 500 MCG in Sodium Chloride 500ML 499 ML IV SCH (17:15)
--- NOTE | 2017-05-01 17:33 | GI Progress Note ---
Assessment/Plan Problems: (1) Jaundice of recent onset ICD Codes: R17 - Unspecified jaundice SNOMED: 97594603 (2) etoh withdrawal (3) depression (4) Pneumonia ICD Codes: J18.9 - Pneumonia, unspecified organism SNOMED: 315341674 (5) Acalculous cholecystitis ICD Codes: K81.9 - Cholecystitis, unspecified SNOMED: 06972072 (6) Ascites due to alcoholic cirrhosis ICD Codes: K70.31 - Alcoholic cirrhosis of liver with ascites SNOMED: 3427092580719016 (7) Alcohol abuse ICD Codes: F10.10 - Alcohol abuse, uncomplicated SNOMED: 46426393 Status: unchanged Status Narrative Discussed with Dr. Daly. Assessment/Plan s/p paracentesis yielding 3.1 liters of bright yellow fluid. elevated ammonia >> lactulose + Xifaxan adv to low sodium diet dc propranolol, ordered midodrine 7.5mg start octreotide 50mcg/hr gtt banana bag abx avoid diuretics for now prednisone 40mg x 28 days, then taper monitor LFTs mucomyst fu labs not transplant candidate given active drinking Subjective Subjective limited, fatigue Objective Last 24 Hour Vital Signs Date Time Temp Pulse Resp B/P (MAP) Pulse Ox O2 Delivery O2 Flow Rate FiO2 05/01/17 16:00 98.4 91 20 107/61 94 Nasal Cannula 4.0 05/01/17 16:00 94 05/01/17 15:00 92 19 102/61 94 Nasal Cannula 4.0 05/01/17 14:00 94 18 99/57 93 Nasal Cannula 4.0 05/01/17 13:00 96 19 108/65 92 Nasal Cannula 4.0 05/01/17 12:00 98.1 100 17 105/69 94 Nasal Cannula 4.0 05/01/17 12:00 99 05/01/17 11:37 101 105/64 05/01/17 11:00 98 17 111/65 94 Nasal Cannula 4.0 05/01/17 10:30 102/68 05/01/17 10:00 101 19 102/63 94 Nasal Cannula 4.0 05/01/17 09:40 110 116/65 05/01/17 09:00 109 17 105/60 93 Nasal Cannula 4.0 05/01/17 08:00 97.4 108 20 100/69 93 Nasal Cannula 4.0 05/01/17 08:00 100 05/01/17 07:20 94 Nasal Cannula 4.0 05/01/17 07:19 Nasal Cannula 4.0 05/01/17 07:00 102 17 115/65 93 Nasal Cannula 4.0 05/01/17 06:00 100 20 110/69 96 Nasal Cannula 4.0 05/01/17 05:00 98.2 104 19 104/60 94 Nasal Cannula 4.0 05/01/17 04:00 107 05/01/17 04:00 104 19 112/60 90 Nasal Cannula 4.0 05/01/17 03:00 105 19 113/57 92 Nasal Cannula 4.0 05/01/17 02:00 107 20 119/64 93 Nasal Cannula 4.0 05/01/17 01:00 106 20 119/63 93 Nasal Cannula 4.0 05/01/17 00:00 108 05/01/17 00:00 98.0 108 20 119/63 93 Nasal Cannula 4.0 04/30/17 23:00 108 20 111/58 93 Nasal Cannula 4.0 04/30/17 22:00 102 20 114/57 93 Nasal Cannula 4.0 04/30/17 21:00 106 20 111/59 92 Nasal Cannula 4.0 04/30/17 21:00 105 100/60 04/30/17 20:00 98.0 106 20 110/61 94 Nasal Cannula 4.0 04/30/17 20:00 106 04/30/17 19:00 106 20 110/61 94 Nasal Cannula 4.0 04/30/17 18:00 102 20 118/66 92 Nasal Cannula 4.0 Intake and Output 05/01/17 05/02/17 19:00 07:00 Intake Total 2415.5 ml Output Total 500 ml Balance 1915.5 ml Intake Oral 700 ml IV Total 1675.5 ml Other 40 ml Output Urine Total 500 ml Laboratory Tests Test 05/01/17 04:40 05/01/17 15:15 White Blood Count 12.8 K/UL (4.8-10.8) H Red Blood Count 1.94 M/UL (4.70-6.10) L Hemoglobin 7.5 G/DL (14.2-18.0) L Hematocrit 22.0 % (42.0-52.0) L Mean Corpuscular Volume 113 FL (80-99) H Mean Corpuscular Hemoglobin 38.4 PG (27.0-31.0) H Mean Corpuscular Hemoglobin Concent 33.9 G/DL (32.0-36.0) Red Cell Distribution Width 18.3 % (11.6-14.8) H Platelet Count 106 K/UL (150-450) L Mean Platelet Volume 6.2 FL (6.5-10.1) L Neutrophils (%) (Auto) % (45.0-75.0) Lymphocytes (%) (Auto) % (20.0-45.0) Monocytes (%) (Auto) % (1.0-10.0) Eosinophils (%) (Auto) % (0.0-3.0) Basophils (%) (Auto) % (0.0-2.0) Differential Total Cells Counted 100 Neutrophils % (Manual) 87 % (45-75) H Lymphocytes % (Manual) 11 % (20-45) L Monocytes % (Manual) 2 % (1-10) Eosinophils % (Manual) 0 % (0-3) Basophils % (Manual) 0 % (0-2) Band Neutrophils 0 % (0-8) Platelet Estimate Decreased L Platelet Morphology Normal Hypochromasia 1+ Anisocytosis 1+ Macrocytosis 1+ Prothrombin Time 16.7 SEC (9.30-11.50) H Prothromb Time International Ratio 1.6 (0.9-1.1) H Sodium Level 128 MMOL/L (136-145) L Potassium Level 2.9 MMOL/L (3.5-5.1) L Chloride Level 89 MMOL/L (98-107) L Carbon Dioxide Level 30 MMOL/L (21-32) Anion Gap 9 (5-15) Blood Urea Nitrogen 41 mg/dL (7-18) H Creatinine 2.0 MG/DL (0.55-1.30) H Estimat Glomerular Filtration Rate 37.2 mL/min (>60) Glucose Level 142 MG/DL (74-106) H Calcium Level 7.9 MG/DL (8.5-10.1) L Total Bilirubin 21.1 MG/DL (0.2-1.0) H Direct Bilirubin 17.8 MG/DL (0.0-0.3) H Aspartate Amino Transf (AST/SGOT) 191 U/L (15-37) H Alanine Aminotransferase (ALT/SGPT) 25 U/L (12-78) Alkaline Phosphatase 339 U/L (46-116) H Ammonia 80 umol/L (11.2-31.7) H Total Protein 4.8 G/DL (6.4-8.2) L Albumin 1.8 G/DL (3.4-5.0) L Globulin 3.0 g/dL Albumin/Globulin Ratio 0.6 (1.0-2.7) L Amylase Level 60 U/L (25-115) Lipase 990 U/L (73-393) H Phosphorus Level 1.8 MG/DL (2.5-4.9) L Hepatitis A IgM Antibody Pending Hepatitis B Surface Antigen Pending Hepatitis B Core IgM Antibody Pending Hepatitis C Antibody Pending HIV (1&2) Antibody Rapid Negative (NEGATIVE) Height (Feet): 5 Height (Inches): 8.00 Weight (Pounds): 205 General Appearance: no apparent distress, alert Cardiovascular: normal rate Respiratory/Chest: normal breath sounds, no respiratory distress Abdominal Exam: soft, distended, ascites Objective Jaundice Danay Grady N.P. May 01, 2017 17:33
[2017-05-01] MEDS ORDERED: Tubing IV Secondary IV ONE (17:34)
--- NOTE | 2017-05-01 20:19 | General Progress Note ---
Assessment/Plan Assessment/Plan # Anemia of alcoholic myelosuppression - continue treatment, with banana bag and alcohol withdrawal protocol ---> anemia w/u has been reviewed # Coagulopathy - 2/2 liver disease and underlying cirrhosis # Leukopenia is related to splenomelagly and splenic sequestration # Thrombocytopenia is due to cirrhosis, liver involvement and splenomegaly # Hyperbilibirubinemia - 2/2 etoh abuse, liver cirrhosis # ETOH withdrawal # PNA # Jaundice of recent onset # Ascites s/p paracentesis Subjective Constitutional: Denies: no symptoms, chills, diaphoresis, fever, malaise, weakness, other HEENT: Denies: no symptoms, eye pain, blurred vision, tearing, double vision, ear pain, ear discharge, nose pain, nose congestion, throat pain, throat swelling, mouth pain, mouth swelling, other Cardiovascular: Denies: no symptoms, chest pain, edema, irregular heart rate, lightheadedness, palpitations, syncope, other Respiratory: Denies: no symptoms, cough, orthopnea, shortness of breath, SOB with excertion, SOB at rest, sputum, stridor, wheezing, other Gastrointestinal/Abdominal: Denies: no symptoms, abdomen distended, abdominal pain, black stools, tarry stools, blood in stool, constipated, diarrhea, difficulty swallowing, nausea, poor appetite, poor fluid intake, rectal bleeding , vomiting, other Genitourinary: Denies: no symptoms, burning, discharge, frequency, flank pain, hematuria, incontinence, pain, urgency, other Neurologic/Psychiatric: Denies: no symptoms, anxiety, depressed, emotional problems, headache, numbness, paresthesia, pre-existing deficit, seizure, tingling, tremors, weakness, other Endocrine: Denies: no symptoms, excessive sweating, flushing, intolerance to cold, intolerance to heat, increased hunger, increased thirst, increased urine, unexplained weight gain, unexplained weight loss, other Hematologic/Lymphatic: Denies: no symptoms, anemia, easy bleeding, easy bruising, other Allergies: Coded Allergies: No Known Allergies (Unverified , 04/29/17) Subjective remains in the icu - still confused Objective Last 24 Hour Vital Signs Date Time Temp Pulse Resp B/P (MAP) Pulse Ox O2 Delivery O2 Flow Rate FiO2 05/01/17 19:47 95 Nasal Cannula 4.0 36 05/01/17 19:47 Nasal Cannula 4.0 36 05/01/17 18:00 92 22 105/57 95 Nasal Cannula 4.0 05/01/17 17:40 92 107/61 05/01/17 17:00 92 18 101/66 94 Nasal Cannula 4.0 05/01/17 16:00 98.4 91 20 107/61 94 Nasal Cannula 4.0 05/01/17 16:00 94 05/01/17 15:00 92 19 102/61 94 Nasal Cannula 4.0 05/01/17 14:00 94 18 99/57 93 Nasal Cannula 4.0 05/01/17 13:00 96 19 108/65 92 Nasal Cannula 4.0 05/01/17 12:00 98.1 100 17 105/69 94 Nasal Cannula 4.0 05/01/17 12:00 99 05/01/17 11:37 101 105/64 05/01/17 11:00 98 17 111/65 94 Nasal Cannula 4.0 05/01/17 10:30 102/68 05/01/17 10:00 101 19 102/63 94 Nasal Cannula 4.0 05/01/17 09:40 110 116/65 05/01/17 09:00 109 17 105/60 93 Nasal Cannula 4.0 05/01/17 08:00 97.4 108 20 100/69 93 Nasal Cannula 4.0 05/01/17 08:00 100 05/01/17 07:20 94 Nasal Cannula 4.0 05/01/17 07:19 Nasal Cannula 4.0 05/01/17 07:00 102 17 115/65 93 Nasal Cannula 4.0 05/01/17 06:00 100 20 110/69 96 Nasal Cannula 4.0 05/01/17 05:00 98.2 104 19 104/60 94 Nasal Cannula 4.0 05/01/17 04:00 107 05/01/17 04:00 104 19 112/60 90 Nasal Cannula 4.0 05/01/17 03:00 105 19 113/57 92 Nasal Cannula 4.0 05/01/17 02:00 107 20 119/64 93 Nasal Cannula 4.0 05/01/17 01:00 106 20 119/63 93 Nasal Cannula 4.0 05/01/17 00:00 108 05/01/17 00:00 98.0 108 20 119/63 93 Nasal Cannula 4.0 04/30/17 23:00 108 20 111/58 93 Nasal Cannula 4.0 04/30/17 22:00 102 20 114/57 93 Nasal Cannula 4.0 04/30/17 21:00 106 20 111/59 92 Nasal Cannula 4.0 04/30/17 21:00 105 100/60 Intake and Output 05/01/17 05/02/17 19:00 07:00 Intake Total 2715.5 ml Output Total 575 ml Balance 2140.5 ml Intake Oral 700 ml IV Total 1975.5 ml Other 40 ml Output Urine Total 575 ml Laboratory Tests 05/01/17 04:40: White Blood Count 12.8H, Red Blood Count 1.94L, Hemoglobin 7.5L, Hematocrit 22.0L, Mean Corpuscular Volume 113H, Mean Corpuscular Hemoglobin 38.4H, Mean Corpuscular Hemoglobin Concent 33.9, Red Cell Distribution Width 18.3H, Platelet Count 106L, Mean Platelet Volume 6.2L, Neutrophils (%) (Auto) , Lymphocytes (%) (Auto) , Monocytes (%) (Auto) , Eosinophils (%) (Auto) , Basophils (%) (Auto) , Differential Total Cells Counted 100, Neutrophils % ( Manual) 87H, Lymphocytes % (Manual) 11L, Monocytes % (Manual) 2, Eosinophils % ( Manual) 0, Basophils % (Manual) 0, Band Neutrophils 0, Platelet Estimate DecreasedL, Platelet Morphology Normal, Hypochromasia 1+, Anisocytosis 1+, Macrocytosis 1+, Prothrombin Time 16.7H, Prothromb Time International Ratio 1.6H , Sodium Level 128L, Potassium Level 2.9L, Chloride Level 89L, Carbon Dioxide Level 30, Anion Gap 9, Blood Urea Nitrogen 41H, Creatinine 2.0H, Estimat Glomerular Filtration Rate 37.2, Glucose Level 142H, Calcium Level 7.9L, Total Bilirubin 21.1H, Direct Bilirubin 17.8H, Aspartate Amino Transf (AST/SGOT) 191H , Alanine Aminotransferase (ALT/SGPT) 25, Alkaline Phosphatase 339H, Ammonia 80H , Total Protein 4.8L, Albumin 1.8L, Globulin 3.0, Albumin/Globulin Ratio 0.6L, Amylase Level 60, Lipase 990H 05/01/17 15:15: Phosphorus Level 1.8L, Hepatitis A IgM Antibody [Pending], Hepatitis B Surface Antigen [Pending], Hepatitis B Core IgM Antibody [Pending], Hepatitis C Antibody [Pending], HIV (1&2) Antibody Rapid Negative Height (Feet): 5 Height (Inches): 8.00 Weight (Pounds): 205 General Appearance: no apparent distress EENT: pharynx normal Neck: normal alignment Cardiovascular: regular rhythm Respiratory/Chest: normal breath sounds Abdomen: non tender Genitourinary/Rectal: heme negative stool Extremities: non-tender Edema: 1+ Arm (L), 1+ Arm (R), 1+ Leg (L), 1+ Leg (R) Neurologic: alert Skin: warm/dry Joshua Hurley May 01, 2017 20:19
--- NOTE | 2017-05-01 20:21 | General Progress Note ---
Assessment/Plan Problem List: (1) Jaundice of recent onset ICD Codes: R17 - Unspecified jaundice SNOMED: 81354358 (2) Ascites due to alcoholic cirrhosis ICD Codes: K70.31 - Alcoholic cirrhosis of liver with ascites SNOMED: 0434062424457981 (3) etoh withdrawal (4) depression (5) Pneumonia ICD Codes: J18.9 - Pneumonia, unspecified organism SNOMED: 899363896 Status: progressing Assessment/Plan etoh cirrhosis jaundice ascites resp insuff reviewed chart and labs not improving very ill and poor prognosis no abdominal pain Subjective ROS Limited/Unobtainable: Yes Constitutional: Reports: no symptoms Allergies: Coded Allergies: No Known Allergies (Unverified , 04/29/17) Objective Last 24 Hour Vital Signs Date Time Temp Pulse Resp B/P (MAP) Pulse Ox O2 Delivery O2 Flow Rate FiO2 05/01/17 19:47 95 Nasal Cannula 4.0 36 05/01/17 19:47 Nasal Cannula 4.0 36 05/01/17 18:00 92 22 105/57 95 Nasal Cannula 4.0 05/01/17 17:40 92 107/61 05/01/17 17:00 92 18 101/66 94 Nasal Cannula 4.0 05/01/17 16:00 98.4 91 20 107/61 94 Nasal Cannula 4.0 05/01/17 16:00 94 05/01/17 15:00 92 19 102/61 94 Nasal Cannula 4.0 05/01/17 14:00 94 18 99/57 93 Nasal Cannula 4.0 05/01/17 13:00 96 19 108/65 92 Nasal Cannula 4.0 05/01/17 12:00 98.1 100 17 105/69 94 Nasal Cannula 4.0 05/01/17 12:00 99 05/01/17 11:37 101 105/64 05/01/17 11:00 98 17 111/65 94 Nasal Cannula 4.0 05/01/17 10:30 102/68 05/01/17 10:00 101 19 102/63 94 Nasal Cannula 4.0 05/01/17 09:40 110 116/65 05/01/17 09:00 109 17 105/60 93 Nasal Cannula 4.0 05/01/17 08:00 97.4 108 20 100/69 93 Nasal Cannula 4.0 05/01/17 08:00 100 05/01/17 07:20 94 Nasal Cannula 4.0 05/01/17 07:19 Nasal Cannula 4.0 05/01/17 07:00 102 17 115/65 93 Nasal Cannula 4.0 05/01/17 06:00 100 20 110/69 96 Nasal Cannula 4.0 05/01/17 05:00 98.2 104 19 104/60 94 Nasal Cannula 4.0 05/01/17 04:00 107 05/01/17 04:00 104 19 112/60 90 Nasal Cannula 4.0 05/01/17 03:00 105 19 113/57 92 Nasal Cannula 4.0 05/01/17 02:00 107 20 119/64 93 Nasal Cannula 4.0 05/01/17 01:00 106 20 119/63 93 Nasal Cannula 4.0 05/01/17 00:00 108 05/01/17 00:00 98.0 108 20 119/63 93 Nasal Cannula 4.0 04/30/17 23:00 108 20 111/58 93 Nasal Cannula 4.0 04/30/17 22:00 102 20 114/57 93 Nasal Cannula 4.0 04/30/17 21:00 106 20 111/59 92 Nasal Cannula 4.0 04/30/17 21:00 105 100/60 Intake and Output 05/01/17 05/02/17 19:00 07:00 Intake Total 2715.5 ml Output Total 575 ml Balance 2140.5 ml Intake Oral 700 ml IV Total 1975.5 ml Other 40 ml Output Urine Total 575 ml Laboratory Tests 05/01/17 04:40: White Blood Count 12.8H, Red Blood Count 1.94L, Hemoglobin 7.5L, Hematocrit 22.0L, Mean Corpuscular Volume 113H, Mean Corpuscular Hemoglobin 38.4H, Mean Corpuscular Hemoglobin Concent 33.9, Red Cell Distribution Width 18.3H, Platelet Count 106L, Mean Platelet Volume 6.2L, Neutrophils (%) (Auto) , Lymphocytes (%) (Auto) , Monocytes (%) (Auto) , Eosinophils (%) (Auto) , Basophils (%) (Auto) , Differential Total Cells Counted 100, Neutrophils % ( Manual) 87H, Lymphocytes % (Manual) 11L, Monocytes % (Manual) 2, Eosinophils % ( Manual) 0, Basophils % (Manual) 0, Band Neutrophils 0, Platelet Estimate DecreasedL, Platelet Morphology Normal, Hypochromasia 1+, Anisocytosis 1+, Macrocytosis 1+, Prothrombin Time 16.7H, Prothromb Time International Ratio 1.6H , Sodium Level 128L, Potassium Level 2.9L, Chloride Level 89L, Carbon Dioxide Level 30, Anion Gap 9, Blood Urea Nitrogen 41H, Creatinine 2.0H, Estimat Glomerular Filtration Rate 37.2, Glucose Level 142H, Calcium Level 7.9L, Total Bilirubin 21.1H, Direct Bilirubin 17.8H, Aspartate Amino Transf (AST/SGOT) 191H , Alanine Aminotransferase (ALT/SGPT) 25, Alkaline Phosphatase 339H, Ammonia 80H , Total Protein 4.8L, Albumin 1.8L, Globulin 3.0, Albumin/Globulin Ratio 0.6L, Amylase Level 60, Lipase 990H 05/01/17 15:15: Phosphorus Level 1.8L, Hepatitis A IgM Antibody [Pending], Hepatitis B Surface Antigen [Pending], Hepatitis B Core IgM Antibody [Pending], Hepatitis C Antibody [Pending], HIV (1&2) Antibody Rapid Negative Height (Feet): 5 Height (Inches): 8.00 Weight (Pounds): 205 Sunday Choi MD May 01, 2017 20:21
[2017-05-01] MEDS: Octreotide Acetate 500 MCG in Sodium Chloride 500ML 499 ML IV SCH (23:11)
--- NOTE | 2017-05-01 23:58 | General Progress Note ---
Assessment/Plan Status: stable, progressing Subjective Constitutional: Reports: malaise, weakness Neurologic/Psychiatric: Reports: anxiety, depressed, emotional problems Allergies: Coded Allergies: No Known Allergies (Unverified , 04/29/17) Objective Last 24 Hour Vital Signs Date Time Temp Pulse Resp B/P (MAP) Pulse Ox O2 Delivery O2 Flow Rate FiO2 05/01/17 19:47 95 Nasal Cannula 4.0 36 05/01/17 19:47 Nasal Cannula 4.0 36 05/01/17 19:30 97.8 91 22 113/93 95 Nasal Cannula 4.0 05/01/17 18:00 92 22 105/57 95 Nasal Cannula 4.0 05/01/17 17:40 92 107/61 05/01/17 17:00 92 18 101/66 94 Nasal Cannula 4.0 05/01/17 16:00 98.4 91 20 107/61 94 Nasal Cannula 4.0 05/01/17 16:00 94 05/01/17 15:00 92 19 102/61 94 Nasal Cannula 4.0 05/01/17 14:00 94 18 99/57 93 Nasal Cannula 4.0 05/01/17 13:00 96 19 108/65 92 Nasal Cannula 4.0 05/01/17 12:00 98.1 100 17 105/69 94 Nasal Cannula 4.0 05/01/17 12:00 99 05/01/17 11:37 101 105/64 05/01/17 11:00 98 17 111/65 94 Nasal Cannula 4.0 05/01/17 10:30 102/68 05/01/17 10:00 101 19 102/63 94 Nasal Cannula 4.0 05/01/17 09:40 110 116/65 05/01/17 09:00 109 17 105/60 93 Nasal Cannula 4.0 05/01/17 08:00 97.4 108 20 100/69 93 Nasal Cannula 4.0 05/01/17 08:00 100 05/01/17 07:20 94 Nasal Cannula 4.0 05/01/17 07:19 Nasal Cannula 4.0 05/01/17 07:00 102 17 115/65 93 Nasal Cannula 4.0 05/01/17 06:00 100 20 110/69 96 Nasal Cannula 4.0 05/01/17 05:00 98.2 104 19 104/60 94 Nasal Cannula 4.0 05/01/17 04:00 107 05/01/17 04:00 104 19 112/60 90 Nasal Cannula 4.0 05/01/17 03:00 105 19 113/57 92 Nasal Cannula 4.0 05/01/17 02:00 107 20 119/64 93 Nasal Cannula 4.0 05/01/17 01:00 106 20 119/63 93 Nasal Cannula 4.0 05/01/17 00:00 108 05/01/17 00:00 98.0 108 20 119/63 93 Nasal Cannula 4.0 Intake and Output 05/01/17 05/02/17 19:00 07:00 Intake Total 2715.5 ml Output Total 575 ml Balance 2140.5 ml Intake Oral 700 ml IV Total 1975.5 ml Other 40 ml Output Urine Total 575 ml # Bowel Movements 1 Laboratory Tests 05/01/17 04:40: White Blood Count 12.8H, Red Blood Count 1.94L, Hemoglobin 7.5L, Hematocrit 22.0L, Mean Corpuscular Volume 113H, Mean Corpuscular Hemoglobin 38.4H, Mean Corpuscular Hemoglobin Concent 33.9, Red Cell Distribution Width 18.3H, Platelet Count 106L, Mean Platelet Volume 6.2L, Neutrophils (%) (Auto) , Lymphocytes (%) (Auto) , Monocytes (%) (Auto) , Eosinophils (%) (Auto) , Basophils (%) (Auto) , Differential Total Cells Counted 100, Neutrophils % ( Manual) 87H, Lymphocytes % (Manual) 11L, Monocytes % (Manual) 2, Eosinophils % ( Manual) 0, Basophils % (Manual) 0, Band Neutrophils 0, Platelet Estimate DecreasedL, Platelet Morphology Normal, Hypochromasia 1+, Anisocytosis 1+, Macrocytosis 1+, Prothrombin Time 16.7H, Prothromb Time International Ratio 1.6H , Sodium Level 128L, Potassium Level 2.9L, Chloride Level 89L, Carbon Dioxide Level 30, Anion Gap 9, Blood Urea Nitrogen 41H, Creatinine 2.0H, Estimat Glomerular Filtration Rate 37.2, Glucose Level 142H, Calcium Level 7.9L, Total Bilirubin 21.1H, Direct Bilirubin 17.8H, Aspartate Amino Transf (AST/SGOT) 191H , Alanine Aminotransferase (ALT/SGPT) 25, Alkaline Phosphatase 339H, Ammonia 80H , Total Protein 4.8L, Albumin 1.8L, Globulin 3.0, Albumin/Globulin Ratio 0.6L, Amylase Level 60, Lipase 990H 05/01/17 15:15: Phosphorus Level 1.8L, Hepatitis A IgM Antibody [Pending], Hepatitis B Surface Antigen [Pending], Hepatitis B Core IgM Antibody [Pending], Hepatitis C Antibody [Pending], HIV (1&2) Antibody Rapid Negative Height (Feet): 5 Height (Inches): 8.00 Weight (Pounds): 205 General Appearance: no apparent distress, alert, overweight Neurologic: alert, oriented x 3, responsive, depressed affect Trino Kirby M.D. May 01, 2017 23:58
[2017-05-02] VITALS: BP 102/56
[2017-05-02 04:00] VITALS: BP 94/51
[2017-05-02] MEDS: Propranolol 10mg tab ORAL SCH ×4 (06:00→18:16)
[2017-05-02] MEDS: Ampicillin/Sulbactam Sod 3 GM in NS 110 ML IVPB SCH ×3 (06:16→22:16)
[2017-05-02 06:17] LABS: MEAN CORPUSCULAR HEMOGLOBIN 38.5 PG (27.0-31.0); MEAN CORPUSCULAR HGB CONC 33.5 G/DL (32.0-36.0); MEAN CORPUSCULAR VOLUME 115 FL (80-99); MEAN PLATELET VOLUME 6.2 FL (6.5-10.1); PLATELET COUNT 112 K/UL (150-450); RED BLOOD COUNT 2.04 M/UL (4.70-6.10); RED CELL DISTRIBUTION WIDTH 18.9 % (11.6-14.8); WHITE BLOOD COUNT 12.2 K/UL (4.8-10.8)
[2017-05-02 06:50] LABS: ALANINE AMINOTRANSFERASE 30 U/L (12-78); ALBUMIN/GLOBULIN RATIO 0.6 (1.0-2.7); ANION GAP 10 (5-15); ASPARTATE AMINO TRANSFERASE 181 U/L (15-37); CALCIUM 7.8 MG/DL (8.5-10.1); CARBON DIOXIDE 26 MMOL/L (21-32); CHLORIDE 95 MMOL/L (98-107); CREATININE 2.1 MG/DL (0.55-1.30); CRP QUANT 6.9 mg/dL (0.00-0.90); GLOMERULAR FILTRATION RATE 35.2 mL/min (>60); MAGNESIUM 2.4 MG/DL (1.8-2.4); PHOSPHORUS 2.1 MG/DL (2.5-4.9); POTASSIUM 3.8 MMOL/L (3.5-5.1); SODIUM 131 MMOL/L (136-145); TOTAL PROTEIN 4.8 G/DL (6.4-8.2); URIC ACID 6.8 MG/DL (2.6-7.2)
[2017-05-02 07:53] LABS: BILIRUBIN,DIRECT 18.1 MG/DL (0.0-0.3)
--- NOTE | 2017-05-02 07:54 | Cardiology Report ---
APPROVED REPORT EXAM: Two-dimensional and M-mode echocardiogram with Doppler and color Doppler. INDICATION Congestive Heart Failure M-Mode DIMENSIONS IVSd1.2 (0.7-1.1cm)Left Atrium (MM)4.5 (1.6-4.0cm) LVDd5.3 (3.5-5.6cm)Aortic Root3.2 (2.0-3.7cm) PWd0.9 (0.7-1.1cm)Aortic Cusp Exc.2.2 (1.5-2.0cm) LVDs3.6 (2.5-4.0cm) PWs1.4 cm Normal left ventricular chamber size, systolic function and wall motion. Left ventricular ejection fraction estimated to be 55 %. Borderline left ventricular hypertrophy. Anterior Echo-free space, may be due to pericardial fat or effusion. Large pleural effusion. Normal appearing aortic, mitral, pulmonic and tricuspid valves. All other cardiac chamber sizes are within normal limits. Mild mitral annulus and aortic root calcification. IVC at normal size with physiologic collapse. A color flow and spectral Doppler study was performed and revealed: Trace aortic regurgitation. Trace mitral regurgitation. Mitral inflow indicates normal left ventricular diastolic function. Mild tricuspid regurgitation. Tricuspid systolic velocities suggests peak right ventricular systolic pressure of 45 mmHg, consistent with borderline moderate pulmonary hypertension. Pulmonic regurgitation present.
[2017-05-02] MEDS ORDERED: Folic Acid 1 MG, Magnesium Sulfate 2,000 MG, Multivitamin - 12 Injection 10 ML in NS w/... IV SCH (08:00)
[2017-05-02 08:15] VITALS: BP 114/78
[2017-05-02] MEDS: Lactulose 20gm/30ml UDC ORAL SCH ×3 (09:07→18:16)
[2017-05-02] MEDS: Vitamin B12 1000mcg/ml Inj SUBQ SCH (09:08)
[2017-05-02] MEDS: Thiamine HCl 100 MG in D5W 55 ML IVPB SCH ×2 (09:09→20:41)
[2017-05-02] MEDS: Pantoprazole Inj IVP SCH ×2 (09:10→20:41)
[2017-05-02] MEDS: Octreotide Acetate 500 MCG in Sodium Chloride 500ML 499 ML IV SCH ×2 (09:12→18:16)
[2017-05-02 09:19] LABS: LYMPHOCYTES % (MANUAL) 7 % (20-45); NEUTROPHILS % (MANUAL) 88 % (45-75); TOTAL CELLS COUNTED 100
[2017-05-02 09:20] LABS: ANISOCYTOSIS 1+; BAND NEUTROPHILS % (MANUAL) 0 % (0-8); BASOPHILS % (MANUAL) 0 % (0-2); EOSINOPHILS % (MANUAL) 0 % (0-3); PLATELET ESTIMATE DECREASED; PLATELET MORPHOLOGY NORMAL; TARGET CELLS 1+
--- NOTE | 2017-05-02 11:30 | Pulmonology Progress Note ---
Assessment/Plan Assessment/Plan 1. Respiratory failure. 2. Liver failure. 3. Cirrhosis with ascites. 4. Alcoholism. 5. Pulmonary infiltrates and effusions, probably due to ascites and possible superimposed pneumonia. doing well off BiPAP mild SOB No distress sat OK on 4 liters 3 liters ascites removed 2 days ago improved Subjective Interval Events: seen in mark Constitutional: Reports: no symptoms HEENT: Repors: no symptoms Respiratory: Reports: no symptoms Allergies: Coded Allergies: No Known Allergies (Unverified , 04/29/17) Objective Last 24 Hour Vital Signs Date Time Temp Pulse Resp B/P (MAP) Pulse Ox O2 Delivery O2 Flow Rate FiO2 05/02/17 08:15 97.6 104 22 114/78 97 Room Air 05/02/17 08:00 96 05/02/17 06:00 104 94/51 05/02/17 04:00 101 05/02/17 04:00 98.1 104 20 94/51 90 Simple Mask 3.5 05/02/17 00:00 97.8 92 20 102/56 90 Nasal Cannula 2.0 05/02/17 00:00 91 05/02/17 00:00 92 102/56 05/01/17 20:00 96 05/01/17 19:47 95 Nasal Cannula 4.0 36 05/01/17 19:47 Nasal Cannula 4.0 36 05/01/17 19:30 97.8 91 22 113/93 95 Nasal Cannula 4.0 05/01/17 18:00 92 22 105/57 95 Nasal Cannula 4.0 05/01/17 17:40 92 107/61 05/01/17 17:00 92 18 101/66 94 Nasal Cannula 4.0 05/01/17 16:00 98.4 91 20 107/61 94 Nasal Cannula 4.0 05/01/17 16:00 94 05/01/17 15:00 92 19 102/61 94 Nasal Cannula 4.0 05/01/17 14:00 94 18 99/57 93 Nasal Cannula 4.0 05/01/17 13:00 96 19 108/65 92 Nasal Cannula 4.0 05/01/17 12:00 98.1 100 17 105/69 94 Nasal Cannula 4.0 05/01/17 12:00 99 05/01/17 11:37 101 105/64 Intake and Output 05/02/17 05/03/17 19:00 07:00 Intake Total 301 ml Balance 301 ml Intake Oral 120 ml IV Total 181 ml # Bowel Movements 3 General Appearance: no acute distress HEENT: normocephalic Respiratory/Chest: chest wall non-tender, decreased breath sounds Cardiovascular: normal peripheral pulses, normal rate Microbiology Date/Time Source Procedure Growth Status 04/29/17 18:10 Blood Blood Culture - Preliminary NO GROWTH AFTER 48 HOURS Resulted 04/29/17 18:00 Blood Blood Culture - Preliminary NO GROWTH AFTER 48 HOURS Resulted 04/29/17 18:45 Nasal Nares MRSA Culture - Final NO METHICILLIN RESISTANT STAPH AUREUS... Complete 04/30/17 12:00 Abdominal Fluid Gram Stain - Final Resulted 04/30/17 12:00 Abdominal Fluid Body Fluid Culture - Preliminary Resulted 04/29/17 18:45 Rectum VRE Culture - Final NO VANCOMYCIN RESISTANT ENTEROCOCCUS ... Complete Laboratory Tests 05/01/17 15:15: Phosphorus Level 1.8L, Hepatitis A IgM Antibody [Pending], Hepatitis B Surface Antigen [Pending], Hepatitis B Core IgM Antibody [Pending], Hepatitis C Antibody [Pending], HIV (1&2) Antibody Rapid Negative 05/02/17 04:40: Phosphorus Level 2.1L, White Blood Count 12.2H, Red Blood Count 2.04L, Hemoglobin 7.9L, Hematocrit 23.5L, Mean Corpuscular Volume 115H, Mean Corpuscular Hemoglobin 38.5H, Mean Corpuscular Hemoglobin Concent 33.5, Red Cell Distribution Width 18.9H, Platelet Count 112L, Mean Platelet Volume 6.2L, Neutrophils (%) (Auto) , Lymphocytes (%) (Auto) , Monocytes (%) (Auto) , Eosinophils (%) (Auto) , Basophils (%) (Auto) , Differential Total Cells Counted 100, Neutrophils % (Manual) 88H, Lymphocytes % (Manual) 7L, Monocytes % (Manual) 5, Eosinophils % (Manual) 0, Basophils % (Manual) 0, Band Neutrophils 0 , Platelet Estimate DecreasedL, Platelet Morphology Normal, Hypochromasia , Anisocytosis 1+, Target Cells 1+, Sodium Level 131L, Potassium Level 3.8, Chloride Level 95L, Carbon Dioxide Level 26, Anion Gap 10, Blood Urea Nitrogen 43H, Creatinine 2.1H, Estimat Glomerular Filtration Rate 35.2, Glucose Level 131H, Uric Acid 6.8, Calcium Level 7.8L, Magnesium Level 2.4, Total Bilirubin 21.0H, Direct Bilirubin 18.1H, Gamma Glutamyl Transpeptidase 577H, Aspartate Amino Transf (AST/SGOT) 181H, Alanine Aminotransferase (ALT/SGPT) 30, Alkaline Phosphatase 364H, C-Reactive Protein, Quantitative 6.9H, Pro-B-Type Natriuretic Peptide 2486H, Total Protein 4.8L, Albumin 1.8L, Globulin 3.0, Albumin/Globulin Ratio 0.6L Current Medications Medications (Trade) Dose Ordered Sig/Leonard Route PRN Reason Start Time Stop Time Status Last Admin Dose Admin Ampicillin Sodium/ Sulbactam Sodium 3 gm/Sodium Chloride 110 ml @ 220 mls/hr Q8HR IVPB 05/01/17 22:00 05/07/17 16:59 05/02/17 06:16 Cyanocobalamin (Vitamin B12) 1,000 mcg DAILY SUBQ 05/02/17 09:00 05/06/17 09:01 05/02/17 09:08 Folic Acid (Folate) 5 mg DAILY ORAL 05/02/17 09:00 05/30/17 14:59 05/02/17 09:07 Folic Acid 1 mg/ Magnesium Sulfate 2000 mg/ Multivitamins 10 ml/Sodium Chloride 1,014.2 ml @ 75 mls/hr Q24H IV 05/02/17 08:00 05/30/17 07:59 05/02/17 09:09 Lactulose (Cephulac) 30 gm THREE TIMES A DAY ORAL 05/02/17 09:00 05/31/17 13:29 05/02/17 09:07 Lorazepam (Ativan 2mg/ml 1ml) 2 mg Q4H PRN IV anxiety/agitation 05/01/17 21:30 05/06/17 21:29 05/01/17 23:23 Midodrine (Pro-Amatine) 7.5 mg THREE TIMES A DAY ORAL 05/02/17 09:00 05/31/17 17:59 05/02/17 09:08 Octreotide Acetate 500 mcg/ Sodium Chloride 500 ml @ 50 mls/hr Q10H IV 05/01/17 21:30 05/31/17 21:29 05/02/17 09:12 Pantoprazole (Protonix) 40 mg EVERY 12 HOURS IVP 05/01/17 21:30 05/29/17 21:29 05/02/17 09:10 Prednisone (predniSONE) 40 mg DAILY ORAL 05/02/17 09:00 05/30/17 08:59 05/02/17 09:08 Propranolol HCl (Inderal) 10 mg EVERY 6 HOURS ORAL 05/02/17 00:00 05/30/17 10:29 Rifaximin (Xifaxan) 550 mg EVERY 12 HOURS ORAL 05/01/17 21:30 05/08/17 21:29 05/02/17 09:08 Sodium Chloride 1,000 ml @ 50 mls/hr Q20H IV 05/01/17 21:30 05/31/17 21:29 05/01/17 21:30 Thiamine HCl 100 mg/Dextrose 56 ml @ 75 mls/hr Q12HR@0800,2000 IVPB 05/01/17 22:00 05/31/17 21:59 05/02/17 09:09 Jason Johnson MD May 02, 2017 11:30
[2017-05-02 11:51] VITALS: BP 113/67
--- NOTE | 2017-05-02 12:09 | GI Progress Note ---
Assessment/Plan Problems: (1) Jaundice of recent onset ICD Codes: R17 - Unspecified jaundice SNOMED: 20904499 (2) etoh withdrawal (3) depression (4) Pneumonia ICD Codes: J18.9 - Pneumonia, unspecified organism SNOMED: 252570439 (5) Acalculous cholecystitis ICD Codes: K81.9 - Cholecystitis, unspecified SNOMED: 58723849 (6) Ascites due to alcoholic cirrhosis ICD Codes: K70.31 - Alcoholic cirrhosis of liver with ascites SNOMED: 4343460476049552 (7) Alcohol abuse ICD Codes: F10.10 - Alcohol abuse, uncomplicated SNOMED: 30489694 Status: unchanged Status Narrative Discussed with Dr. Daly. Assessment/Plan s/p paracentesis yielding 3.1 liters of bright yellow fluid. elevated ammonia >> lactulose + Xifaxan low sodium diet dc propranolol, ordered midodrine 7.5mg octreotide 50mcg/hr gtt banana bag abx avoid diuretics for now prednisone 40mg x 28 days, then taper monitor LFTs mucomyst fu labs not transplant candidate given active drinking Subjective Subjective limited, fatigue Objective Last 24 Hour Vital Signs Date Time Temp Pulse Resp B/P (MAP) Pulse Ox O2 Delivery O2 Flow Rate FiO2 05/02/17 11:51 97.6 70 19 113/67 97 Room Air 05/02/17 08:15 97.6 104 22 114/78 97 Room Air 05/02/17 08:00 96 05/02/17 06:00 104 94/51 05/02/17 04:00 101 05/02/17 04:00 98.1 104 20 94/51 90 Simple Mask 3.5 05/02/17 00:00 97.8 92 20 102/56 90 Nasal Cannula 2.0 05/02/17 00:00 91 05/02/17 00:00 92 102/56 05/01/17 20:00 96 05/01/17 19:47 95 Nasal Cannula 4.0 36 05/01/17 19:47 Nasal Cannula 4.0 36 05/01/17 19:30 97.8 91 22 113/93 95 Nasal Cannula 4.0 05/01/17 18:00 92 22 105/57 95 Nasal Cannula 4.0 05/01/17 17:40 92 107/61 05/01/17 17:00 92 18 101/66 94 Nasal Cannula 4.0 05/01/17 16:00 98.4 91 20 107/61 94 Nasal Cannula 4.0 05/01/17 16:00 94 05/01/17 15:00 92 19 102/61 94 Nasal Cannula 4.0 05/01/17 14:00 94 18 99/57 93 Nasal Cannula 4.0 05/01/17 13:00 96 19 108/65 92 Nasal Cannula 4.0 Intake and Output 05/02/17 05/03/17 19:00 07:00 Intake Total 301 ml Balance 301 ml Intake Oral 120 ml IV Total 181 ml # Bowel Movements 5 Laboratory Tests Test 05/01/17 15:15 05/02/17 04:40 Phosphorus Level 1.8 MG/DL (2.5-4.9) L 2.1 MG/DL (2.5-4.9) L Hepatitis A IgM Antibody Pending Hepatitis B Surface Antigen Pending Hepatitis B Core IgM Antibody Pending Hepatitis C Antibody Pending HIV (1&2) Antibody Rapid Negative (NEGATIVE) White Blood Count 12.2 K/UL (4.8-10.8) H Red Blood Count 2.04 M/UL (4.70-6.10) L Hemoglobin 7.9 G/DL (14.2-18.0) L Hematocrit 23.5 % (42.0-52.0) L Mean Corpuscular Volume 115 FL (80-99) H Mean Corpuscular Hemoglobin 38.5 PG (27.0-31.0) H Mean Corpuscular Hemoglobin Concent 33.5 G/DL (32.0-36.0) Red Cell Distribution Width 18.9 % (11.6-14.8) H Platelet Count 112 K/UL (150-450) L Mean Platelet Volume 6.2 FL (6.5-10.1) L Neutrophils (%) (Auto) % (45.0-75.0) Lymphocytes (%) (Auto) % (20.0-45.0) Monocytes (%) (Auto) % (1.0-10.0) Eosinophils (%) (Auto) % (0.0-3.0) Basophils (%) (Auto) % (0.0-2.0) Differential Total Cells Counted 100 Neutrophils % (Manual) 88 % (45-75) H Lymphocytes % (Manual) 7 % (20-45) L Monocytes % (Manual) 5 % (1-10) Eosinophils % (Manual) 0 % (0-3) Basophils % (Manual) 0 % (0-2) Band Neutrophils 0 % (0-8) Platelet Estimate Decreased L Platelet Morphology Normal Hypochromasia Anisocytosis 1+ Target Cells 1+ Sodium Level 131 MMOL/L (136-145) L Potassium Level 3.8 MMOL/L (3.5-5.1) Chloride Level 95 MMOL/L (98-107) L Carbon Dioxide Level 26 MMOL/L (21-32) Anion Gap 10 (5-15) Blood Urea Nitrogen 43 mg/dL (7-18) H Creatinine 2.1 MG/DL (0.55-1.30) H Estimat Glomerular Filtration Rate 35.2 mL/min (>60) Glucose Level 131 MG/DL (74-106) H Uric Acid 6.8 MG/DL (2.6-7.2) Calcium Level 7.8 MG/DL (8.5-10.1) L Magnesium Level 2.4 MG/DL (1.8-2.4) Total Bilirubin 21.0 MG/DL (0.2-1.0) H Direct Bilirubin 18.1 MG/DL (0.0-0.3) H Gamma Glutamyl Transpeptidase 577 U/L (5-85) H Aspartate Amino Transf (AST/SGOT) 181 U/L (15-37) H Alanine Aminotransferase (ALT/SGPT) 30 U/L (12-78) Alkaline Phosphatase 364 U/L (46-116) H C-Reactive Protein, Quantitative 6.9 mg/dL (0.00-0.90) H Pro-B-Type Natriuretic Peptide 2486 (0-125) H Total Protein 4.8 G/DL (6.4-8.2) L Albumin 1.8 G/DL (3.4-5.0) L Globulin 3.0 g/dL Albumin/Globulin Ratio 0.6 (1.0-2.7) L Height (Feet): 5 Height (Inches): 8.00 Weight (Pounds): 205 General Appearance: no apparent distress, alert Cardiovascular: normal rate Respiratory/Chest: normal breath sounds, no respiratory distress Abdominal Exam: normal bowel sounds, non tender, soft, distended Objective Jaundice Grady,Danay Javon N.P. May 02, 2017 12:09
--- NOTE | 2017-05-02 13:23 | General Progress Note ---
Assessment/Plan Status: stable Assessment/Plan status: renal failure, likely hepatorenal low Na due to anasarca Low K Jaundice Anemia high Lipase High lactic low alb Plan; K , Phos , Mag as needed Urine studies per GI transfuse monitor renal parameters- monitor lytes poor prognosis Subjective ROS Limited/Unobtainable: No Constitutional: Reports: malaise Allergies: Coded Allergies: No Known Allergies (Unverified , 04/29/17) Objective Last 24 Hour Vital Signs Date Time Temp Pulse Resp B/P (MAP) Pulse Ox O2 Delivery O2 Flow Rate FiO2 05/02/17 12:35 70 113/67 05/02/17 11:51 97.6 70 19 113/67 97 Room Air 05/02/17 08:15 97.6 104 22 114/78 97 Room Air 05/02/17 08:00 96 05/02/17 06:00 104 94/51 05/02/17 04:00 101 05/02/17 04:00 98.1 104 20 94/51 90 Simple Mask 3.5 05/02/17 00:00 97.8 92 20 102/56 90 Nasal Cannula 2.0 05/02/17 00:00 91 05/02/17 00:00 92 102/56 05/01/17 20:00 96 05/01/17 19:47 95 Nasal Cannula 4.0 36 05/01/17 19:47 Nasal Cannula 4.0 36 05/01/17 19:30 97.8 91 22 113/93 95 Nasal Cannula 4.0 05/01/17 18:00 92 22 105/57 95 Nasal Cannula 4.0 05/01/17 17:40 92 107/61 05/01/17 17:00 92 18 101/66 94 Nasal Cannula 4.0 05/01/17 16:00 98.4 91 20 107/61 94 Nasal Cannula 4.0 05/01/17 16:00 94 05/01/17 15:00 92 19 102/61 94 Nasal Cannula 4.0 05/01/17 14:00 94 18 99/57 93 Nasal Cannula 4.0 Intake and Output 05/02/17 05/03/17 19:00 07:00 Intake Total 301 ml Balance 301 ml Intake Oral 120 ml IV Total 181 ml # Bowel Movements 5 Laboratory Tests 05/01/17 15:15: Phosphorus Level 1.8L, Hepatitis A IgM Antibody Negative, Hepatitis B Surface Antigen Negative, Hepatitis B Core IgM Antibody Negative, Hepatitis C Antibody 0.1, HIV (1&2) Antibody Rapid Negative 05/02/17 04:40: Phosphorus Level 2.1L, White Blood Count 12.2H, Red Blood Count 2.04L, Hemoglobin 7.9L, Hematocrit 23.5L, Mean Corpuscular Volume 115H, Mean Corpuscular Hemoglobin 38.5H, Mean Corpuscular Hemoglobin Concent 33.5, Red Cell Distribution Width 18.9H, Platelet Count 112L, Mean Platelet Volume 6.2L, Neutrophils (%) (Auto) , Lymphocytes (%) (Auto) , Monocytes (%) (Auto) , Eosinophils (%) (Auto) , Basophils (%) (Auto) , Differential Total Cells Counted 100, Neutrophils % (Manual) 88H, Lymphocytes % (Manual) 7L, Monocytes % (Manual) 5, Eosinophils % (Manual) 0, Basophils % (Manual) 0, Band Neutrophils 0 , Platelet Estimate DecreasedL, Platelet Morphology Normal, Hypochromasia , Anisocytosis 1+, Target Cells 1+, Sodium Level 131L, Potassium Level 3.8, Chloride Level 95L, Carbon Dioxide Level 26, Anion Gap 10, Blood Urea Nitrogen 43H, Creatinine 2.1H, Estimat Glomerular Filtration Rate 35.2, Glucose Level 131H, Uric Acid 6.8, Calcium Level 7.8L, Magnesium Level 2.4, Total Bilirubin 21.0H, Direct Bilirubin 18.1H, Gamma Glutamyl Transpeptidase 577H, Aspartate Amino Transf (AST/SGOT) 181H, Alanine Aminotransferase (ALT/SGPT) 30, Alkaline Phosphatase 364H, C-Reactive Protein, Quantitative 6.9H, Pro-B-Type Natriuretic Peptide 2486H, Total Protein 4.8L, Albumin 1.8L, Globulin 3.0, Albumin/Globulin Ratio 0.6L Height (Feet): 5 Height (Inches): 8.00 Weight (Pounds): 205 General Appearance: other - jaundiced Respiratory/Chest: decreased breath sounds Abdomen: distended Objective MIKAELA Mcdowell May 02, 2017 13:23
--- NOTE | 2017-05-02 14:04 | Diagnostic Imaging Report ---
Indication: Dyspnea Comparison: 04/29/17 A single view chest radiograph was obtained. Findings: Bilateral infiltrates versus pulmonary edema demonstrated. Heart size is probably normal. Lung volumes are low bilaterally. Impression: Development of bilateral infiltrates versus pulmonary edema
[2017-05-02 14:23] LABS: OTHERS PATHOLOGIST COMMENT
[2017-05-02 14:30] LABS: COMMENT,BODY FLUID PATHOLOGIST COMMENT
--- NOTE | 2017-05-02 15:09 | General Progress Note ---
Assessment/Plan Assessment/Plan # Anemia of alcoholic myelosuppression - continue treatment, with banana bag and alcohol withdrawal protocol ---> anemia w/u has been reviewed. Continue to watch counts and transfuse as needed (if hgb below 7) # Coagulopathy - 2/2 liver disease and underlying cirrhosis # Leukopenia is related to splenomegaly and splenic sequestration # Thrombocytopenia is due to cirrhosis, liver involvement and splenomegaly # Hyperbilibirubinemia - 2/2 etoh abuse, liver cirrhosis # ETOH withdrawal # PNA # Jaundice of recent onset # Ascites s/p paracentesis Subjective ROS Limited/Unobtainable: Yes Allergies: Coded Allergies: No Known Allergies (Unverified , 04/29/17) Subjective remains in the icu - still confused, fatigued Objective Last 24 Hour Vital Signs Date Time Temp Pulse Resp B/P (MAP) Pulse Ox O2 Delivery O2 Flow Rate FiO2 05/02/17 12:35 70 113/67 05/02/17 12:00 84 05/02/17 11:51 97.6 70 19 113/67 97 Room Air 05/02/17 08:15 97.6 104 22 114/78 97 Room Air 05/02/17 08:00 96 05/02/17 06:48 Room Air 05/02/17 06:40 97 Room Air 05/02/17 06:00 104 94/51 05/02/17 04:00 101 05/02/17 04:00 98.1 104 20 94/51 90 Simple Mask 3.5 05/02/17 00:00 97.8 92 20 102/56 90 Nasal Cannula 2.0 05/02/17 00:00 91 05/02/17 00:00 92 102/56 05/01/17 20:00 96 05/01/17 19:47 95 Nasal Cannula 4.0 36 05/01/17 19:47 Nasal Cannula 4.0 36 05/01/17 19:30 97.8 91 22 113/93 95 Nasal Cannula 4.0 05/01/17 18:00 92 22 105/57 95 Nasal Cannula 4.0 05/01/17 17:40 92 107/61 05/01/17 17:00 92 18 101/66 94 Nasal Cannula 4.0 05/01/17 16:00 98.4 91 20 107/61 94 Nasal Cannula 4.0 05/01/17 16:00 94 Intake and Output 05/02/17 05/03/17 19:00 07:00 Intake Total 836 ml Balance 836 ml Intake Oral 120 ml IV Total 716 ml # Bowel Movements 6 Laboratory Tests 05/01/17 15:15: Phosphorus Level 1.8L, Hepatitis A IgM Antibody Negative, Hepatitis B Surface Antigen Negative, Hepatitis B Core IgM Antibody Negative, Hepatitis C Antibody 0.1, HIV (1&2) Antibody Rapid Negative 05/02/17 04:40: Phosphorus Level 2.1L, White Blood Count 12.2H, Red Blood Count 2.04L, Hemoglobin 7.9L, Hematocrit 23.5L, Mean Corpuscular Volume 115H, Mean Corpuscular Hemoglobin 38.5H, Mean Corpuscular Hemoglobin Concent 33.5, Red Cell Distribution Width 18.9H, Platelet Count 112L, Mean Platelet Volume 6.2L, Neutrophils (%) (Auto) , Lymphocytes (%) (Auto) , Monocytes (%) (Auto) , Eosinophils (%) (Auto) , Basophils (%) (Auto) , Differential Total Cells Counted 100, Neutrophils % (Manual) 88H, Lymphocytes % (Manual) 7L, Monocytes % (Manual) 5, Eosinophils % (Manual) 0, Basophils % (Manual) 0, Band Neutrophils 0 , Platelet Estimate DecreasedL, Platelet Morphology Normal, Hypochromasia , Anisocytosis 1+, Target Cells 1+, Sodium Level 131L, Potassium Level 3.8, Chloride Level 95L, Carbon Dioxide Level 26, Anion Gap 10, Blood Urea Nitrogen 43H, Creatinine 2.1H, Estimat Glomerular Filtration Rate 35.2, Glucose Level 131H, Uric Acid 6.8, Calcium Level 7.8L, Magnesium Level 2.4, Total Bilirubin 21.0H, Direct Bilirubin 18.1H, Gamma Glutamyl Transpeptidase 577H, Aspartate Amino Transf (AST/SGOT) 181H, Alanine Aminotransferase (ALT/SGPT) 30, Alkaline Phosphatase 364H, C-Reactive Protein, Quantitative 6.9H, Pro-B-Type Natriuretic Peptide 2486H, Total Protein 4.8L, Albumin 1.8L, Globulin 3.0, Albumin/Globulin Ratio 0.6L Height (Feet): 5 Height (Inches): 8.00 Weight (Pounds): 205 General Appearance: lethargic EENT: TMs normal Neck: normal inspection Cardiovascular: regular rhythm Neurologic: disoriented Skin: normal pigmentation Joshua Hurley May 02, 2017 15:09
[2017-05-02 16:00] VITALS: BP 117/68
--- NOTE | 2017-05-02 18:13 | Infectious Diseases Prog Note ---
Assessment/Plan Problems: (1) Acalculous cholecystitis Assessment & Plan: on unasyn empirically, recommend HIDA scan , general surgery is following (2) Pneumonia Assessment & Plan: with patchy infiltrates on CT scan of the chest and fever, on unasyn , and to cover for possible acalculous cholecystitis (3) Jaundice of recent onset Assessment & Plan: suspect alcholic hepatitis related, on oral prednisone , GI is following (4) Ascites due to alcoholic cirrhosis Assessment & Plan: S/P paracentesis with no evidence of fluids infection , already on unasyn , await culture (5) Alcohol abuse Assessment & Plan: recommend counseling and rehabilitation Subjective Constitutional: Reports: fatigue HEENT: Reports: no symptoms Respiratory: Reports: no symptoms Breasts: Reports: no symptoms Cardiovascular: Reports: no symptoms Gastrointestinal/Abdominal: Reports: diarrhea, bloating Genitourinary: Reports: no symptoms Neurologic: Reports: no symptoms Psychiatric: Reports: no symptoms Skin: Reports: no symptoms Endocrine: Reports: no symptoms Hematologic: Reports: no symptoms Musculoskeletal: Reports: no symptoms Allergies: Coded Allergies: No Known Allergies (Unverified , 04/29/17) Subjective he feels a little better, on nonrebreathable mask, had paracentesis with fluids is not suggestive of infection, had low grade fever Objective Vital Signs Last 24 Hour Vital Signs Date Time Temp Pulse Resp B/P (MAP) Pulse Ox O2 Delivery O2 Flow Rate FiO2 05/02/17 16:00 82 05/02/17 16:00 97.7 84 22 117/68 98 Room Air 05/02/17 12:35 70 113/67 05/02/17 12:00 84 05/02/17 11:51 97.6 70 19 113/67 97 Room Air 05/02/17 08:15 97.6 104 22 114/78 97 Room Air 05/02/17 08:00 96 05/02/17 06:48 Room Air 05/02/17 06:40 97 Room Air 05/02/17 06:00 104 94/51 05/02/17 04:00 101 05/02/17 04:00 98.1 104 20 94/51 90 Simple Mask 3.5 05/02/17 00:00 97.8 92 20 102/56 90 Nasal Cannula 2.0 05/02/17 00:00 91 10/13/17 00:00 92 102/56 05/01/17 20:00 96 05/01/17 19:47 95 Nasal Cannula 4.0 36 05/01/17 19:47 Nasal Cannula 4.0 36 05/01/17 19:30 97.8 91 22 113/93 95 Nasal Cannula 4.0 Height (Feet): 5 Height (Inches): 8.00 Weight (Pounds): 205 General Appearance: WD/WN, no acute distress HEENT: normocephalic, atraumatic, anicteric, mucous membranes moist, EOMI, pharynx normal, supple, no JVD Respiratory/Chest: chest wall non-tender, lungs clear, normal breath sounds, no respiratory distress, decreased breath sounds, crackles/rales Cardiovascular: normal peripheral pulses, normal rate, regular rhythm, no gallop/murmur, no JVD Abdomen: normal bowel sounds, soft, non tender, no organomegaly, non distended , no mass, no scars Extremities: no cyanosis, no clubbing Skin: no rash, no lesions, no ulcers Neurologic/Psychiatric: alert, oriented x 3 Lymphatic: no neck adenopathy, no groin adenopathy Microbiology Date/Time Source Procedure Growth Status 04/29/17 18:45 Nasal Nares MRSA Culture - Final NO METHICILLIN RESISTANT STAPH AUREUS... Complete 04/30/17 12:00 Abdominal Fluid Gram Stain - Final Resulted 04/30/17 12:00 Abdominal Fluid Body Fluid Culture - Preliminary Resulted 04/29/17 18:45 Rectum VRE Culture - Final NO VANCOMYCIN RESISTANT ENTEROCOCCUS ... Complete Laboratory Tests Test 05/02/17 04:40 White Blood Count 12.2 K/UL (4.8-10.8) H Red Blood Count 2.04 M/UL (4.70-6.10) L Hemoglobin 7.9 G/DL (14.2-18.0) L Hematocrit 23.5 % (42.0-52.0) L Mean Corpuscular Volume 115 FL (80-99) H Mean Corpuscular Hemoglobin 38.5 PG (27.0-31.0) H Mean Corpuscular Hemoglobin Concent 33.5 G/DL (32.0-36.0) Red Cell Distribution Width 18.9 % (11.6-14.8) H Platelet Count 112 K/UL (150-450) L Mean Platelet Volume 6.2 FL (6.5-10.1) L Neutrophils (%) (Auto) % (45.0-75.0) Lymphocytes (%) (Auto) % (20.0-45.0) Monocytes (%) (Auto) % (1.0-10.0) Eosinophils (%) (Auto) % (0.0-3.0) Basophils (%) (Auto) % (0.0-2.0) Differential Total Cells Counted 100 Neutrophils % (Manual) 88 % (45-75) H Lymphocytes % (Manual) 7 % (20-45) L Monocytes % (Manual) 5 % (1-10) Eosinophils % (Manual) 0 % (0-3) Basophils % (Manual) 0 % (0-2) Band Neutrophils 0 % (0-8) Platelet Estimate Decreased L Platelet Morphology Normal Hypochromasia Anisocytosis 1+ Target Cells 1+ Sodium Level 131 MMOL/L (136-145) L Potassium Level 3.8 MMOL/L (3.5-5.1) Chloride Level 95 MMOL/L (98-107) L Carbon Dioxide Level 26 MMOL/L (21-32) Anion Gap 10 (5-15) Blood Urea Nitrogen 43 mg/dL (7-18) H Creatinine 2.1 MG/DL (0.55-1.30) H Estimat Glomerular Filtration Rate 35.2 mL/min (>60) Glucose Level 131 MG/DL (74-106) H Uric Acid 6.8 MG/DL (2.6-7.2) Calcium Level 7.8 MG/DL (8.5-10.1) L Phosphorus Level 2.1 MG/DL (2.5-4.9) L Magnesium Level 2.4 MG/DL (1.8-2.4) Total Bilirubin 21.0 MG/DL (0.2-1.0) H Direct Bilirubin 18.1 MG/DL (0.0-0.3) H Gamma Glutamyl Transpeptidase 577 U/L (5-85) H Aspartate Amino Transf (AST/SGOT) 181 U/L (15-37) H Alanine Aminotransferase (ALT/SGPT) 30 U/L (12-78) Alkaline Phosphatase 364 U/L (46-116) H C-Reactive Protein, Quantitative 6.9 mg/dL (0.00-0.90) H Pro-B-Type Natriuretic Peptide 2486 (0-125) H Total Protein 4.8 G/DL (6.4-8.2) L Albumin 1.8 G/DL (3.4-5.0) L Globulin 3.0 g/dL Albumin/Globulin Ratio 0.6 (1.0-2.7) L Current Medications Medications (Trade) Dose Ordered Sig/Leonard Route PRN Reason Start Time Stop Time Status Last Admin Dose Admin Ampicillin Sodium/ Sulbactam Sodium 3 gm/Sodium Chloride 110 ml @ 220 mls/hr Q8HR IVPB 05/01/17 22:00 05/07/17 16:59 05/02/17 14:20 Cyanocobalamin (Vitamin B12) 1,000 mcg DAILY SUBQ 05/02/17 09:00 05/06/17 09:01 05/02/17 09:08 Folic Acid (Folate) 5 mg DAILY ORAL 05/02/17 09:00 05/30/17 14:59 05/02/17 09:07 Lactulose (Cephulac) 30 gm THREE TIMES A DAY ORAL 05/02/17 09:00 05/31/17 13:29 05/02/17 12:35 Lorazepam (Ativan 2mg/ml 1ml) 2 mg Q4H PRN IV anxiety/agitation 05/01/17 21:30 05/06/17 21:29 05/01/17 23:23 Midodrine (Pro-Amatine) 7.5 mg THREE TIMES A DAY ORAL 05/02/17 09:00 05/31/17 17:59 05/02/17 12:35 Octreotide Acetate 500 mcg/ Sodium Chloride 500 ml @ 50 mls/hr Q10H IV 05/01/17 21:30 05/31/17 21:29 05/02/17 09:12 Pantoprazole (Protonix) 40 mg EVERY 12 HOURS IVP 05/01/17 21:30 05/29/17 21:29 05/02/17 09:10 Prednisone (predniSONE) 40 mg DAILY ORAL 05/02/17 09:00 05/30/17 08:59 05/02/17 09:08 Propranolol HCl (Inderal) 10 mg EVERY 6 HOURS ORAL 05/02/17 00:00 05/30/17 10:29 05/02/17 12:35 Rifaximin (Xifaxan) 550 mg EVERY 12 HOURS ORAL 05/01/17 21:30 05/08/17 21:29 05/02/17 09:08 Thiamine HCl 100 mg/Dextrose 56 ml @ 75 mls/hr Q12HR@0800,1999 IVPB 05/01/17 22:00 05/31/17 21:59 05/02/17 09:09 Janae Lopez M.D. May 02, 2017 18:13
[2017-05-02] MEDS: LORazepam Inj 2mg/ml 1ml IV PRN (18:29)
[2017-05-02 20:00] VITALS: BP 103/60
--- NOTE | 2017-05-02 20:40 | General Progress Note ---
Assessment/Plan Problem List: (1) Jaundice of recent onset ICD Codes: R17 - Unspecified jaundice SNOMED: 06877275 (2) Ascites due to alcoholic cirrhosis ICD Codes: K70.31 - Alcoholic cirrhosis of liver with ascites SNOMED: 0255697783805614 (3) etoh withdrawal (4) depression (5) Pneumonia ICD Codes: J18.9 - Pneumonia, unspecified organism SNOMED: 710883342 Status: progressing Assessment/Plan cirrhosis etoh jaundice improving ascites hypoxia improving no DT poor prognosis Subjective ROS Limited/Unobtainable: Yes Constitutional: Reports: no symptoms Allergies: Coded Allergies: No Known Allergies (Unverified , 04/29/17) Objective Last 24 Hour Vital Signs Date Time Temp Pulse Resp B/P (MAP) Pulse Ox O2 Delivery O2 Flow Rate FiO2 05/02/17 20:00 97.5 79 22 103/60 98 Room Air 05/02/17 18:16 82 117/68 05/02/17 16:00 82 05/02/17 16:00 97.7 84 22 117/68 98 Room Air 05/02/17 12:35 70 113/67 05/02/17 12:00 84 05/02/17 11:51 97.6 70 19 113/67 97 Room Air 05/02/17 08:15 97.6 104 22 114/78 97 Room Air 05/02/17 08:00 96 05/02/17 06:48 Room Air 05/02/17 06:40 97 Room Air 05/02/17 06:00 104 94/51 05/02/17 04:00 101 05/02/17 04:00 98.1 104 20 94/51 90 Simple Mask 3.5 05/02/17 00:00 97.8 92 20 102/56 90 Nasal Cannula 2.0 05/02/17 00:00 91 05/02/17 00:00 92 102/56 Intake and Output 05/02/17 05/03/17 19:00 07:00 Intake Total 1086 ml Output Total 450 ml Balance 636 ml Intake Oral 120 ml IV Total 966 ml Output Urine Total 450 ml # Bowel Movements 7 Laboratory Tests 05/02/17 04:40: White Blood Count 12.2H, Red Blood Count 2.04L, Hemoglobin 7.9L, Hematocrit 23.5L, Mean Corpuscular Volume 115H, Mean Corpuscular Hemoglobin 38.5H, Mean Corpuscular Hemoglobin Concent 33.5, Red Cell Distribution Width 18.9H, Platelet Count 112L, Mean Platelet Volume 6.2L, Neutrophils (%) (Auto) , Lymphocytes (%) (Auto) , Monocytes (%) (Auto) , Eosinophils (%) (Auto) , Basophils (%) (Auto) , Differential Total Cells Counted 100, Neutrophils % ( Manual) 88H, Lymphocytes % (Manual) 7L, Monocytes % (Manual) 5, Eosinophils % ( Manual) 0, Basophils % (Manual) 0, Band Neutrophils 0, Platelet Estimate DecreasedL, Platelet Morphology Normal, Hypochromasia , Anisocytosis 1+, Target Cells 1+, Sodium Level 131L, Potassium Level 3.8, Chloride Level 95L, Carbon Dioxide Level 26, Anion Gap 10, Blood Urea Nitrogen 43H, Creatinine 2.1H, Estimat Glomerular Filtration Rate 35.2, Glucose Level 131H, Uric Acid 6.8, Calcium Level 7.8L, Phosphorus Level 2.1L, Magnesium Level 2.4, Total Bilirubin 21.0H, Direct Bilirubin 18.1H, Gamma Glutamyl Transpeptidase 577H, Aspartate Amino Transf (AST/SGOT) 181H, Alanine Aminotransferase (ALT/SGPT) 30, Alkaline Phosphatase 364H, C-Reactive Protein, Quantitative 6.9H, Pro-B-Type Natriuretic Peptide 2486H, Total Protein 4.8L, Albumin 1.8L, Globulin 3.0, Albumin/Globulin Ratio 0.6L Height (Feet): 5 Height (Inches): 8.00 Weight (Pounds): 205 Neck: supple Cardiovascular: normal rate Respiratory/Chest: lungs clear Abdomen: soft Sunday Choi MD May 02, 2017 20:40
[2017-05-03 00:42] VITALS: BP 109/68
[2017-05-03] MEDS: Propranolol 10mg tab ORAL SCH ×2 (01:31→06:00)
[2017-05-03 04:00] VITALS: BP 95/60
[2017-05-03] MEDS: Octreotide Acetate 500 MCG in Sodium Chloride 500ML 499 ML IV SCH ×3 (04:19→23:28)
[2017-05-03] MEDS: Ampicillin/Sulbactam Sod 3 GM in NS 110 ML IVPB SCH ×3 (06:00→22:05)
[2017-05-03 08:00] VITALS: BP 100/59
[2017-05-03] MEDS ORDERED: MAGNESIUM SULFATE IV SCH (08:00)
[2017-05-03] MEDS ORDERED: MULTIVITAMIN IV SCH (08:00)
[2017-05-03] MEDS ORDERED: [UNRECOGNIZED DRUG - OTHER] IV SCH (08:00)
[2017-05-03] MEDS ORDERED: Thiamine HCl 100mg/ml 2 ml Inj ONE ×2 (08:49→21:59)
[2017-05-03] MEDS: Pantoprazole Inj IVP SCH (09:02)
[2017-05-03] MEDS: Lactulose 20gm/30ml UDC ORAL SCH ×3 (09:02→18:32)
[2017-05-03] MEDS: Thiamine HCl 100 MG in D5W 55 ML IVPB SCH ×2 (09:02→23:27)
[2017-05-03] MEDS: Vitamin B12 1000mcg/ml Inj SUBQ SCH (09:04)
--- NOTE | 2017-05-03 10:01 | Diagnostic Imaging Report ---
Indication: Status post fall Comparison: None Technique: Contiguous helical CT images through the brain was performed without intravenous contrast. Axial, coronal and sagittal reconstructions were reformatted. CT dose: Total DLP 1470 mGycm, CTDI volume 70.4 mGy Findings: Please note, exam is suboptimal secondary to motion artifact. There is no definite acute intracranial hemorrhage or infarct. No mass, mass effect or midline shift is identified. Ventricles and sulci are within normal limits. No extra-axial fluid collections are seen. Bony calvarium is intact. Mastoid air cells and visualized paranasal sinuses are clear. Impression: Suboptimal exam secondary to motion artifact. No abdomen acute intracranial abnormalities. The CT scanner at [facility] is accredited by the [place] [employer] and the scans are performed using protocols designed to limit radiation exposure to as low as reasonably achievable to attain images of sufficient resolution adequate for diagnostic evaluation.
--- NOTE | 2017-05-03 10:46 | General Progress Note ---
Assessment/Plan Problem List: (1) Jaundice of recent onset ICD Codes: R17 - Unspecified jaundice SNOMED: 41490728 (2) Ascites due to alcoholic cirrhosis ICD Codes: K70.31 - Alcoholic cirrhosis of liver with ascites SNOMED: 6091601528506187 (3) etoh withdrawal (4) depression (5) Pneumonia ICD Codes: J18.9 - Pneumonia, unspecified organism SNOMED: 303139469 (6) Acalculous cholecystitis ICD Codes: K81.9 - Cholecystitis, unspecified SNOMED: 00098942 Status: stable, progressing, tolerating diet Assessment/Plan ot pt diet abx cbc bmp am Subjective Constitutional: Reports: weakness Allergies: Coded Allergies: No Known Allergies (Unverified , 04/29/17) All Systems: reviewed and negative except above Subjective sleepy in bed Objective Last 24 Hour Vital Signs Date Time Temp Pulse Resp B/P (MAP) Pulse Ox O2 Delivery O2 Flow Rate FiO2 05/03/17 09:48 Nasal Cannula 4.0 36 05/03/17 09:48 98 Nasal Cannula 4.0 05/03/17 08:00 97.8 78 22 100/59 90 Nasal Cannula 2.0 05/03/17 08:00 74 05/03/17 06:00 78 95/60 05/03/17 04:00 78 05/03/17 04:00 98.1 76 20 95/60 95 Room Air 05/03/17 01:31 78 109/68 05/03/17 00:42 98.1 78 24 109/68 96 Nasal Cannula 2.0 05/03/17 00:00 80 05/02/17 20:00 93 Nasal Cannula 4.0 36 05/02/17 20:00 97.5 79 22 103/60 98 Room Air 05/02/17 20:00 Nasal Cannula 4.0 36 05/02/17 20:00 78 05/02/17 18:16 82 117/68 05/02/17 16:00 82 05/02/17 16:00 97.7 84 22 117/68 98 Room Air 05/02/17 12:35 70 113/67 05/02/17 12:00 84 05/02/17 11:51 97.6 70 19 113/67 97 Room Air Intake and Output 05/03/17 05/04/17 19:00 07:00 Intake Total 156 ml Balance 156 ml IV Total 156 ml # Bowel Movements 3 Height (Feet): 5 Height (Inches): 8.00 Weight (Pounds): 205 General Appearance: lethargic EENT: normal ENT inspection Neck: normal alignment Cardiovascular: normal peripheral pulses, normal rate, regular rhythm Respiratory/Chest: chest wall non-tender, lungs clear, normal breath sounds Abdomen: normal bowel sounds, non tender, soft Extremities: normal inspection Edema: no edema noted Arm (L), no edema noted Arm (R), no edema noted Leg (L), no edema noted Leg (R), no edema noted Pedal (L), no edema noted Pedal (R), no edema noted Generalized Neurologic: motor weakness Skin: normal pigmentation, warm/dry MEENA AGUIRRE May 03, 2017 10:46
--- NOTE | 2017-05-03 10:54 | General Progress Note ---
Assessment/Plan Problem List: (1) Alcohol abuse ICD Codes: F10.10 - Alcohol abuse, uncomplicated SNOMED: 96907776 (2) depression (3) Ascites due to alcoholic cirrhosis ICD Codes: K70.31 - Alcoholic cirrhosis of liver with ascites SNOMED: 2703122506832231 (4) Jaundice of recent onset ICD Codes: R17 - Unspecified jaundice SNOMED: 14462603 Assessment/Plan s/p paracentesis yielding 3.1 liters of bright yellow fluid. elevated ammonia >> lactulose + Xifaxan low sodium diet dc propranolol, ordered midodrine 7.5mg>> will increase to 10 mg octreotide 50mcg/hr gtt banana bag abx avoid diuretics for now prednisone 40mg x 28 days, then taper monitor LFTs mucomyst>> completed fu labs not transplant candidate given active drinking Subjective ROS Limited/Unobtainable: Yes Allergies: Coded Allergies: No Known Allergies (Unverified , 04/29/17) Subjective no event doing better per mom Objective Last 24 Hour Vital Signs Date Time Temp Pulse Resp B/P (MAP) Pulse Ox O2 Delivery O2 Flow Rate FiO2 05/03/17 09:48 Nasal Cannula 4.0 36 05/03/17 09:48 98 Nasal Cannula 4.0 05/03/17 08:00 97.8 78 22 100/59 90 Nasal Cannula 2.0 05/03/17 08:00 74 05/03/17 06:00 78 95/60 05/03/17 04:00 78 05/03/17 04:00 98.1 76 20 95/60 95 Room Air 05/03/17 01:31 78 109/68 05/03/17 00:42 98.1 78 24 109/68 96 Nasal Cannula 2.0 05/03/17 00:00 80 05/02/17 20:00 93 Nasal Cannula 4.0 36 05/02/17 20:00 97.5 79 22 103/60 98 Room Air 05/02/17 20:00 Nasal Cannula 4.0 36 05/02/17 20:00 78 05/02/17 18:16 82 117/68 05/02/17 16:00 82 05/02/17 16:00 97.7 84 22 117/68 98 Room Air 05/02/17 12:35 70 113/67 05/02/17 12:00 84 05/02/17 11:51 97.6 70 19 113/67 97 Room Air Intake and Output 05/03/17 05/04/17 19:00 07:00 Intake Total 156 ml Balance 156 ml IV Total 156 ml # Bowel Movements 3 Height (Feet): 5 Height (Inches): 8.00 Weight (Pounds): 205 General Appearance: alert EENT: scleral icterus Neck: supple Cardiovascular: normal rate Respiratory/Chest: lungs clear Abdomen: normal bowel sounds, non tender, soft Extremities: non-tender BARTOLO CHAPA May 03, 2017 10:54
--- NOTE | 2017-05-03 11:02 | General Progress Note ---
Assessment/Plan Status: unchanged Assessment/Plan status: renal failure, likely hepatorenal low Na due to anasarca Low K Jaundice Anemia high Lipase High lactic low alb Plan; labs pending- K , Phos , Mag as needed Urine studies per GI transfuse monitor renal parameters- monitor lytes poor prognosis Subjective ROS Limited/Unobtainable: No Constitutional: Reports: malaise, weakness Allergies: Coded Allergies: No Known Allergies (Unverified , 04/29/17) Objective Last 24 Hour Vital Signs Date Time Temp Pulse Resp B/P (MAP) Pulse Ox O2 Delivery O2 Flow Rate FiO2 05/03/17 09:48 Nasal Cannula 4.0 36 05/03/17 09:48 98 Nasal Cannula 4.0 05/03/17 08:00 97.8 78 22 100/59 90 Nasal Cannula 2.0 05/03/17 08:00 74 05/03/17 06:00 78 95/60 05/03/17 04:00 78 05/03/17 04:00 98.1 76 20 95/60 95 Room Air 05/03/17 01:31 78 109/68 05/03/17 00:42 98.1 78 24 109/68 96 Nasal Cannula 2.0 05/03/17 00:00 80 05/02/17 20:00 93 Nasal Cannula 4.0 36 05/02/17 20:00 97.5 79 22 103/60 98 Room Air 05/02/17 20:00 Nasal Cannula 4.0 36 05/02/17 20:00 78 05/02/17 18:16 82 117/68 05/02/17 16:00 82 05/02/17 16:00 97.7 84 22 117/68 98 Room Air 05/02/17 12:35 70 113/67 05/02/17 12:00 84 05/02/17 11:51 97.6 70 19 113/67 97 Room Air Intake and Output 05/03/17 05/04/17 19:00 07:00 Intake Total 156 ml Balance 156 ml IV Total 156 ml # Bowel Movements 3 Height (Feet): 5 Height (Inches): 8.00 Weight (Pounds): 205 General Appearance: no apparent distress, lethargic, confused Cardiovascular: regular rhythm Respiratory/Chest: decreased breath sounds Abdomen: distended Edema: 2+ Arm (L), 2+ Arm (R), 2+ Leg (L), 2+ Leg (R), 2+ Pedal (L), 2+ Pedal ( R), 2+ Generalized Objective MIKAELA Mcdowell May 03, 2017 11:02
[2017-05-03 11:56] LABS: MEAN CORPUSCULAR HEMOGLOBIN 36.8 PG (27.0-31.0); MEAN CORPUSCULAR HGB CONC 31.7 G/DL (32.0-36.0); MEAN CORPUSCULAR VOLUME 116 FL (80-99); MEAN PLATELET VOLUME 6.9 FL (6.5-10.1); PLATELET COUNT 120 K/UL (150-450); RED BLOOD COUNT 2.19 M/UL (4.70-6.10); RED CELL DISTRIBUTION WIDTH 18.7 % (11.6-14.8); WHITE BLOOD COUNT 14.1 K/UL (4.8-10.8)
[2017-05-03 12:00] VITALS: BP 134/71
--- NOTE | 2017-05-03 12:02 | Cardiology Progress Note ---
Assessment/Plan Assessment/Plan 1. Sinus tachycardia due to intravascular volume depletion due to hypo- albuminemia, albumin administration is only short term resolution. 2. Mild pulmonary HTN 3. Chronic liver disease. Subjective Subjective Sinus rhythm at 74. Transferred out to [facility]. Objective Last 24 Hour Vital Signs Date Time Temp Pulse Resp B/P (MAP) Pulse Ox O2 Delivery O2 Flow Rate FiO2 05/03/17 09:48 Nasal Cannula 4.0 36 05/03/17 09:48 98 Nasal Cannula 4.0 05/03/17 08:00 97.8 78 22 100/59 90 Nasal Cannula 2.0 05/03/17 08:00 74 05/03/17 06:00 78 95/60 05/03/17 04:00 78 05/03/17 04:00 98.1 76 20 95/60 95 Room Air 05/03/17 01:31 78 109/68 05/03/17 00:42 98.1 78 24 109/68 96 Nasal Cannula 2.0 05/03/17 00:00 80 05/02/17 20:00 93 Nasal Cannula 4.0 36 05/02/17 20:00 97.5 79 22 103/60 98 Room Air 05/02/17 20:00 Nasal Cannula 4.0 36 05/02/17 20:00 78 05/02/17 18:16 82 117/68 05/02/17 16:00 82 05/02/17 16:00 97.7 84 22 117/68 98 Room Air 05/02/17 12:35 70 113/67 05/02/17 12:00 84 Intake and Output 05/03/17 05/04/17 19:00 07:00 Intake Total 156 ml Balance 156 ml IV Total 156 ml # Bowel Movements 3 2D Echo: LVEF at 55%, RVSP 45 mmHg Laboratory Tests Test 05/03/17 11:25 White Blood Count Pending Red Blood Count Pending Hemoglobin Pending Hematocrit Pending Mean Corpuscular Volume Pending Mean Corpuscular Hemoglobin Pending Mean Corpuscular Hemoglobin Concent Pending Red Cell Distribution Width Pending Platelet Count Pending Mean Platelet Volume Pending Neutrophils (%) (Auto) Pending Lymphocytes (%) (Auto) Pending Monocytes (%) (Auto) Pending Eosinophils (%) (Auto) Pending Basophils (%) (Auto) Pending Sodium Level Pending Potassium Level Pending Chloride Level Pending Carbon Dioxide Level Pending Blood Urea Nitrogen Pending Creatinine Pending Estimat Glomerular Filtration Rate Pending Glucose Level Pending Uric Acid Pending Calcium Level Pending Phosphorus Level Pending Magnesium Level Pending Total Bilirubin Pending Aspartate Amino Transf (AST/SGOT) Pending Alanine Aminotransferase (ALT/SGPT) Pending Alkaline Phosphatase Pending Total Creatine Kinase Pending C-Reactive Protein, Quantitative Pending Pro-B-Type Natriuretic Peptide Pending Total Protein Pending Albumin Pending Globulin Pending Amylase Level Pending Lipase Pending Vitamin B12 Level Pending Folate Pending Microbiology Date/Time Source Procedure Growth Status 04/30/17 12:00 Abdominal Fluid Gram Stain - Final Resulted 04/30/17 12:00 Abdominal Fluid Body Fluid Culture - Preliminary NO GROWTH AFTER 72 HOURS Resulted Objective HEENT: Head is normocephalic. PERRLA, EOMI. Eyes show scleral icterus. NECK: JVD is negative, no carotid bruit, carotid upstroke 2+ B/L LUNGS: Decreased breath sounds in the bases. CARDIAC: Rhythm is regular. Tachycardia, no murmurs, gallops or rubs. ABDOMEN: Distended, soft and nontender. There is a fluid wave noted. EXTREMITIES: No clubbing or cyanosis. There is 2+ edema. YAQUELIN HARDY May 03, 2017 12:02
[2017-05-03 12:05] LABS: AMYLASE 113 U/L (25-115)
[2017-05-03 12:10] LABS: LIPASE 1449 U/L (73-393)
[2017-05-03 12:15] LABS: CRP QUANT 5.3 mg/dL (0.00-0.90); MAGNESIUM 2.5 MG/DL (1.8-2.4); PHOSPHORUS 3.3 MG/DL (2.5-4.9)
[2017-05-03 12:18] LABS: VITAMIN D 25-OH TOTAL 3.3 ng/mL (.)
[2017-05-03 12:21] LABS: ALANINE AMINOTRANSFERASE 34 U/L (12-78); ALBUMIN/GLOBULIN RATIO 0.6 (1.0-2.7); ANION GAP 8 (5-15); ASPARTATE AMINO TRANSFERASE 154 U/L (15-37); CALCIUM 7.5 MG/DL (8.5-10.1); CARBON DIOXIDE 27 MMOL/L (21-32); CHLORIDE 95 MMOL/L (98-107); CREATININE 1.8 MG/DL (0.55-1.30); POTASSIUM 3.3 MMOL/L (3.5-5.1); SODIUM 130 MMOL/L (136-145); TOTAL PROTEIN 4.6 G/DL (6.4-8.2)
[2017-05-03 12:49] LABS: BILIRUBIN,DIRECT 17.1 MG/DL (0.0-0.3)
[2017-05-03 13:24] LABS: LYMPHOCYTES % (MANUAL) 2 % (20-45); NEUTROPHILS % (MANUAL) 95 % (45-75); TOTAL CELLS COUNTED 100
[2017-05-03 13:25] LABS: ANISOCYTOSIS 1+; BAND NEUTROPHILS % (MANUAL) 0 % (0-8); BASOPHILS % (MANUAL) 0 % (0-2); EOSINOPHILS % (MANUAL) 0 % (0-3); HYPOCHROMASIA 1+; PLATELET ESTIMATE DECREASED; PLATELET MORPHOLOGY NORMAL
[2017-05-03 13:34] LABS: FOLIC ACID 46.3 NG/ML (3.1-17.5)
[2017-05-03] MEDS: Midodrine 10mg tab ORAL SCH ×2 (13:58→18:32)
--- NOTE | 2017-05-03 15:02 | Infectious Diseases Prog Note ---
Assessment/Plan Problems: (1) Acalculous cholecystitis Assessment & Plan: on unasyn empirically, recommend HIDA scan , general surgery is following (2) Pneumonia Assessment & Plan: with patchy infiltrates on CT scan of the chest and fever, on unasyn , to cover for possible acalculous cholecystitis too, monitor CXR (3) Jaundice of recent onset Assessment & Plan: suspect alcholic hepatitis related, on oral prednisone , GI is following (4) Ascites due to alcoholic cirrhosis Assessment & Plan: S/P paracentesis with no evidence of fluids infection , already on unasyn , await culture (5) Alcohol abuse Assessment & Plan: recommend counseling and rehabilitation (6) Leukocytosis Assessment & Plan: persistent due to oral prednisone , monitor WBC Subjective Constitutional: Reports: fatigue HEENT: Reports: no symptoms Respiratory: Reports: dry cough Breasts: Reports: no symptoms Cardiovascular: Reports: dyspnea on exertion Gastrointestinal/Abdominal: Reports: diarrhea, bloating Genitourinary: Reports: no symptoms Neurologic: Reports: weakness, confusion Psychiatric: Reports: no symptoms Skin: Reports: other - jaundiced Endocrine: Reports: no symptoms Hematologic: Reports: no symptoms Musculoskeletal: Reports: swelling Allergies: Coded Allergies: No Known Allergies (Unverified , 04/29/17) Subjective he feels a little better, on nonrebreathable mask, had paracentesis with fluids is not suggestive of infection, had low grade fever Objective Vital Signs Last 24 Hour Vital Signs Date Time Temp Pulse Resp B/P (MAP) Pulse Ox O2 Delivery O2 Flow Rate FiO2 05/03/17 12:00 71 05/03/17 12:00 97.7 76 18 134/71 96 Nasal Cannula 3.0 05/03/17 09:48 Nasal Cannula 4.0 36 05/03/17 09:48 98 Nasal Cannula 4.0 05/03/17 08:00 97.8 78 22 100/59 90 Nasal Cannula 2.0 05/03/17 08:00 74 05/03/17 06:00 78 95/60 05/03/17 04:00 78 05/03/17 04:00 98.1 76 20 95/60 95 Room Air 05/03/17 01:31 78 109/68 05/03/17 00:42 98.1 78 24 109/68 96 Nasal Cannula 2.0 05/03/17 00:00 80 05/02/17 20:00 93 Nasal Cannula 4.0 36 05/02/17 20:00 97.5 79 22 103/60 98 Room Air 05/02/17 20:00 Nasal Cannula 4.0 36 05/02/17 20:00 78 05/02/17 18:16 82 117/68 05/02/17 16:00 82 05/02/17 16:00 97.7 84 22 117/68 98 Room Air Height (Feet): 5 Height (Inches): 8.00 Weight (Pounds): 205 General Appearance: WD/WN, no acute distress HEENT: normocephalic, atraumatic, mucous membranes moist, PERRL, EOMI, pharynx normal, supple, no JVD, other - icteric sclera Cardiovascular: normal peripheral pulses, normal rate, regular rhythm, no gallop/murmur, no JVD Abdomen: no mass, no scars, absent bowel sounds, distended, hepatomegaly Extremities: no cyanosis, no clubbing, other - edema Skin: no rash, no lesions, no ulcers Neurologic/Psychiatric: alert, oriented x 3, responsive Lymphatic: no neck adenopathy, no groin adenopathy Laboratory Tests Test 05/03/17 11:25 White Blood Count 14.1 K/UL (4.8-10.8) H Red Blood Count 2.19 M/UL (4.70-6.10) L Hemoglobin 8.0 G/DL (14.2-18.0) L Hematocrit 25.4 % (42.0-52.0) L Mean Corpuscular Volume 116 FL (80-99) H Mean Corpuscular Hemoglobin 36.8 PG (27.0-31.0) H Mean Corpuscular Hemoglobin Concent 31.7 G/DL (32.0-36.0) L Red Cell Distribution Width 18.7 % (11.6-14.8) H Platelet Count 120 K/UL (150-450) L Mean Platelet Volume 6.9 FL (6.5-10.1) Neutrophils (%) (Auto) % (45.0-75.0) Lymphocytes (%) (Auto) % (20.0-45.0) Monocytes (%) (Auto) % (1.0-10.0) Eosinophils (%) (Auto) % (0.0-3.0) Basophils (%) (Auto) % (0.0-2.0) Differential Total Cells Counted 100 Neutrophils % (Manual) 95 % (45-75) H Lymphocytes % (Manual) 2 % (20-45) L Monocytes % (Manual) 3 % (1-10) Eosinophils % (Manual) 0 % (0-3) Basophils % (Manual) 0 % (0-2) Band Neutrophils 0 % (0-8) Platelet Estimate Decreased L Platelet Morphology Normal Hypochromasia 1+ Anisocytosis 1+ Sodium Level 130 MMOL/L (136-145) L Potassium Level 3.3 MMOL/L (3.5-5.1) L Chloride Level 95 MMOL/L (98-107) L Carbon Dioxide Level 27 MMOL/L (21-32) Anion Gap 8 (5-15) Blood Urea Nitrogen 49 mg/dL (7-18) H Creatinine 1.8 MG/DL (0.55-1.30) H Estimat Glomerular Filtration Rate 42.0 mL/min (>60) Glucose Level 147 MG/DL (74-106) H Uric Acid 8.0 MG/DL (2.6-7.2) H Calcium Level 7.5 MG/DL (8.5-10.1) L Phosphorus Level 3.3 MG/DL (2.5-4.9) Magnesium Level 2.5 MG/DL (1.8-2.4) H Total Bilirubin 19.7 MG/DL (0.2-1.0) H Direct Bilirubin 17.1 MG/DL (0.0-0.3) H Aspartate Amino Transf (AST/SGOT) 154 U/L (15-37) H Alanine Aminotransferase (ALT/SGPT) 34 U/L (12-78) Alkaline Phosphatase 322 U/L (46-116) H Total Creatine Kinase 23 U/L (26-308) L C-Reactive Protein, Quantitative 5.3 mg/dL (0.00-0.90) H Pro-B-Type Natriuretic Peptide 3416 (0-125) H Total Protein 4.6 G/DL (6.4-8.2) L Albumin 1.7 G/DL (3.4-5.0) L Globulin 2.9 g/dL Albumin/Globulin Ratio 0.6 (1.0-2.7) L Amylase Level 113 U/L (25-115) Lipase 1449 U/L (73-393) H Vitamin B12 Level 9679 PG/ML (193-986) H Folate 46.3 NG/ML (3.1-17.5) H Current Medications Medications (Trade) Dose Ordered Sig/Leonard Route PRN Reason Start Time Stop Time Status Last Admin Dose Admin Ampicillin Sodium/ Sulbactam Sodium 3 gm/Sodium Chloride 110 ml @ 220 mls/hr Q8HR IVPB 05/01/17 22:00 05/07/17 16:59 05/03/17 13:59 Cyanocobalamin (Vitamin B12) 1,000 mcg DAILY SUBQ 05/02/17 09:00 05/06/17 09:01 05/03/17 09:04 Folic Acid (Folate) 5 mg DAILY ORAL 05/02/17 09:00 05/30/17 14:59 05/03/17 09:03 Lactulose (Cephulac) 30 gm THREE TIMES A DAY ORAL 05/02/17 09:00 05/31/17 13:29 05/03/17 13:58 Lorazepam (Ativan 2mg/ml 1ml) 2 mg Q4H PRN IV anxiety/agitation 05/01/17 21:30 05/06/17 21:29 05/02/17 18:29 Midodrine (Pro-Amatine) 10 mg THREE TIMES A DAY ORAL 05/03/17 13:00 06/02/17 12:59 05/03/17 13:58 Octreotide Acetate 500 mcg/ Sodium Chloride 500 ml @ 50 mls/hr Q10H IV 05/01/17 21:30 05/31/17 21:29 05/03/17 13:59 Prednisone (predniSONE) 40 mg DAILY ORAL 05/02/17 09:00 05/30/17 08:59 05/03/17 09:03 Rifaximin (Xifaxan) 550 mg EVERY 12 HOURS ORAL 05/01/17 21:30 05/08/17 21:29 05/03/17 09:03 Thiamine HCl 100 mg/Dextrose 56 ml @ 75 mls/hr Q12HR@0800,2000 IVPB 05/01/17 22:00 05/31/17 21:59 05/03/17 09:02 Janae Loepz M.D. May 03, 2017 15:02
[2017-05-03 16:00] VITALS: BP 100/66
[2017-05-03] MEDS ORDERED: Tubing IV Secondary IV ONE ×2 (16:20→18:43)
[2017-05-03] MEDS ORDERED: NS 275ml ONE ×2 (16:20→18:43)
[2017-05-03] MEDS ORDERED: D5NS 1000ml IV ONE (16:20)
--- NOTE | 2017-05-03 18:13 | Pulmonology Progress Note ---
Assessment/Plan Assessment/Plan 1. Respiratory failure. 2. Liver failure. 3. Cirrhosis with ascites. 4. Alcoholism. 5. Pulmonary infiltrates and effusions, probably due to ascites and possible superimposed pneumonia. 6. UTI bipap qhs and prn distress titrate o2 nebs IV ABx fu need for repeat para and possible thoracentesis 3 liters ascites removed CXR friday disc w RN, mom Subjective HEENT: Repors: no symptoms Cardiovascular: Reports: no symptoms Gastrointestinal/Abdominal: Reports: no symptoms Genitourinary: Reports: no symptoms Allergies: Coded Allergies: No Known Allergies (Unverified , 04/29/17) Subjective seen and examined awake, moves extremities tolerating po pt started today remains on o2 no cp nv or bleeding Objective Last 24 Hour Vital Signs Date Time Temp Pulse Resp B/P (MAP) Pulse Ox O2 Delivery O2 Flow Rate FiO2 05/03/17 16:00 74 05/03/17 16:00 97.5 72 18 100/66 93 Nasal Cannula 3.0 05/03/17 12:00 71 05/03/17 12:00 97.7 76 18 134/71 96 Nasal Cannula 3.0 05/03/17 09:48 Nasal Cannula 4.0 36 05/03/17 09:48 98 Nasal Cannula 4.0 05/03/17 08:00 97.8 78 22 100/59 90 Nasal Cannula 2.0 05/03/17 08:00 74 05/03/17 06:00 78 95/60 05/03/17 04:00 78 05/03/17 04:00 98.1 76 20 95/60 95 Room Air 05/03/17 01:31 78 109/68 05/03/17 00:42 98.1 78 24 109/68 96 Nasal Cannula 2.0 05/03/17 00:00 80 05/02/17 20:00 93 Nasal Cannula 4.0 36 05/02/17 20:00 97.5 79 22 103/60 98 Room Air 05/02/17 20:00 Nasal Cannula 4.0 36 05/02/17 20:00 78 05/02/17 18:16 82 117/68 Intake and Output 05/03/17 05/04/17 19:00 07:00 Intake Total 666 ml Balance 666 ml IV Total 666 ml # Bowel Movements 9 General Appearance: WD/WN HEENT: other - icteric Respiratory/Chest: crackles/rales, rhonchi Cardiovascular: normal rate, regular rhythm Abdomen: soft, non tender, no organomegaly Extremities: no cyanosis, other - edema Neurologic/Psychiatric: abnormal gait, alert, oriented x 3, responsive Musculoskeletal: normal muscle bulk Laboratory Tests 05/03/17 11:25: White Blood Count 14.1H, Red Blood Count 2.19L, Hemoglobin 8.0L, Hematocrit 25.4L, Mean Corpuscular Volume 116H, Mean Corpuscular Hemoglobin 36.8H, Mean Corpuscular Hemoglobin Concent 31.7L, Red Cell Distribution Width 18.7H, Platelet Count 120L, Mean Platelet Volume 6.9, Neutrophils (%) (Auto) , Lymphocytes (%) (Auto) , Monocytes (%) (Auto) , Eosinophils (%) (Auto) , Basophils (%) (Auto) , Differential Total Cells Counted 100, Neutrophils % ( Manual) 95H, Lymphocytes % (Manual) 2L, Monocytes % (Manual) 3, Eosinophils % ( Manual) 0, Basophils % (Manual) 0, Band Neutrophils 0, Platelet Estimate DecreasedL, Platelet Morphology Normal, Hypochromasia 1+, Anisocytosis 1+, Sodium Level 130L, Potassium Level 3.3L, Chloride Level 95L, Carbon Dioxide Level 27, Anion Gap 8, Blood Urea Nitrogen 49H, Creatinine 1.8H, Estimat Glomerular Filtration Rate 42.0, Glucose Level 147H, Uric Acid 8.0H, Calcium Level 7.5L, Phosphorus Level 3.3, Magnesium Level 2.5H, Total Bilirubin 19.7H, Direct Bilirubin 17.1H, Aspartate Amino Transf (AST/SGOT) 154H, Alanine Aminotransferase (ALT/SGPT) 34, Alkaline Phosphatase 322H, Total Creatine Kinase 23L, C-Reactive Protein, Quantitative 5.3H, Pro-B-Type Natriuretic Peptide 3416H, Total Protein 4.6L, Albumin 1.7L, Globulin 2.9, Albumin/Globulin Ratio 0.6L, Amylase Level 113, Lipase 1449H, Vitamin B12 Level 9679H, Folate 46.3H Current Medications Medications (Trade) Dose Ordered Sig/Leonard Route PRN Reason Start Time Stop Time Status Last Admin Dose Admin Ampicillin Sodium/ Sulbactam Sodium 3 gm/Sodium Chloride 110 ml @ 220 mls/hr Q8HR IVPB 05/01/17 22:00 05/07/17 16:59 05/03/17 13:59 Cyanocobalamin (Vitamin B12) 1,000 mcg DAILY SUBQ 05/02/17 09:00 05/06/17 09:01 05/03/17 09:04 Folic Acid (Folate) 5 mg DAILY ORAL 05/02/17 09:00 05/30/17 14:59 05/03/17 09:03 Lactulose (Cephulac) 30 gm THREE TIMES A DAY ORAL 05/02/17 09:00 05/31/17 13:29 05/03/17 13:58 Lorazepam (Ativan 2mg/ml 1ml) 2 mg Q4H PRN IV anxiety/agitation 05/01/17 21:30 05/06/17 21:29 05/02/17 18:29 Midodrine (Pro-Amatine) 10 mg THREE TIMES A DAY ORAL 05/03/17 13:00 06/02/17 12:59 05/03/17 13:58 Octreotide Acetate 500 mcg/ Sodium Chloride 500 ml @ 50 mls/hr Q10H IV 05/01/17 21:30 05/31/17 21:29 05/03/17 13:59 Prednisone (predniSONE) 40 mg DAILY ORAL 05/02/17 09:00 05/30/17 08:59 05/03/17 09:03 Rifaximin (Xifaxan) 550 mg EVERY 12 HOURS ORAL 05/01/17 21:30 05/08/17 21:29 05/03/17 09:03 Thiamine HCl 100 mg/Dextrose 56 ml @ 75 mls/hr Q12HR@0800,2000 IVPB 05/01/17 22:00 05/31/17 21:59 05/03/17 09:02 KELSEY CABAN DO May 03, 2017 18:13
[2017-05-03 20:00] VITALS: BP 116/48
--- NOTE | 2017-05-03 21:14 | General Progress Note ---
Assessment/Plan Assessment/Plan # Anemia of alcoholic myelosuppression - continue treatment, with banana bag and alcohol withdrawal protocol ---> anemia w/u has been reviewed. Continue to watch counts and transfuse as needed (if hgb below 7) --> s/p transfusion # Coagulopathy - 2/2 liver disease and underlying cirrhosis # Leukopenia is related to splenomegaly and splenic sequestration # Thrombocytopenia is due to cirrhosis, liver involvement and splenomegaly # Hyperbilibirubinemia - 2/2 etoh abuse, liver cirrhosis # ETOH withdrawal # PNA # Jaundice of recent onset # Ascites s/p paracentesis Subjective ROS Limited/Unobtainable: Yes Allergies: Coded Allergies: No Known Allergies (Unverified , 04/29/17) Subjective disoriented, vss, afebrile Objective Last 24 Hour Vital Signs Date Time Temp Pulse Resp B/P (MAP) Pulse Ox O2 Delivery O2 Flow Rate FiO2 05/03/17 20:59 96 Nasal Cannula 3.0 32 05/03/17 20:59 Nasal Cannula 3.0 32 05/03/17 20:00 97.2 72 20 116/48 100 Room Air 05/03/17 16:00 74 05/03/17 16:00 97.5 72 18 100/66 93 Nasal Cannula 3.0 05/03/17 12:00 71 05/03/17 12:00 97.7 76 18 134/71 96 Nasal Cannula 3.0 05/03/17 09:48 Nasal Cannula 4.0 36 05/03/17 09:48 98 Nasal Cannula 4.0 05/03/17 08:00 97.8 78 22 100/59 90 Nasal Cannula 2.0 05/03/17 08:00 74 05/03/17 06:00 78 95/60 05/03/17 04:00 78 05/03/17 04:00 98.1 76 20 95/60 95 Room Air 05/03/17 01:31 78 109/68 05/03/17 00:42 98.1 78 24 109/68 96 Nasal Cannula 2.0 05/03/17 00:00 80 Intake and Output 05/03/17 05/04/17 19:00 07:00 Intake Total 1216 ml Output Total 700 ml Balance 516 ml Intake Oral 550 ml IV Total 666 ml Output Urine Total 700 ml # Bowel Movements 10 Laboratory Tests 05/03/17 11:25: White Blood Count 14.1H, Red Blood Count 2.19L, Hemoglobin 8.0L, Hematocrit 25.4L, Mean Corpuscular Volume 116H, Mean Corpuscular Hemoglobin 36.8H, Mean Corpuscular Hemoglobin Concent 31.7L, Red Cell Distribution Width 18.7H, Platelet Count 120L, Mean Platelet Volume 6.9, Neutrophils (%) (Auto) , Lymphocytes (%) (Auto) , Monocytes (%) (Auto) , Eosinophils (%) (Auto) , Basophils (%) (Auto) , Differential Total Cells Counted 100, Neutrophils % ( Manual) 95H, Lymphocytes % (Manual) 2L, Monocytes % (Manual) 3, Eosinophils % ( Manual) 0, Basophils % (Manual) 0, Band Neutrophils 0, Platelet Estimate DecreasedL, Platelet Morphology Normal, Hypochromasia 1+, Anisocytosis 1+, Sodium Level 130L, Potassium Level 3.3L, Chloride Level 95L, Carbon Dioxide Level 27, Anion Gap 8, Blood Urea Nitrogen 49H, Creatinine 1.8H, Estimat Glomerular Filtration Rate 42.0, Glucose Level 147H, Uric Acid 8.0H, Calcium Level 7.5L, Phosphorus Level 3.3, Magnesium Level 2.5H, Total Bilirubin 19.7H, Direct Bilirubin 17.1H, Aspartate Amino Transf (AST/SGOT) 154H, Alanine Aminotransferase (ALT/SGPT) 34, Alkaline Phosphatase 322H, Total Creatine Kinase 23L, C-Reactive Protein, Quantitative 5.3H, Pro-B-Type Natriuretic Peptide 3416H, Total Protein 4.6L, Albumin 1.7L, Globulin 2.9, Albumin/Globulin Ratio 0.6L, Amylase Level 113, Lipase 1449H, Vitamin B12 Level 9679H, Folate 46.3H Height (Feet): 5 Height (Inches): 8.00 Weight (Pounds): 205 General Appearance: no apparent distress EENT: normal ENT inspection Neck: normal inspection Cardiovascular: normal rate Abdomen: no organomegaly, no mass 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
[2017-05-04 00:01] VITALS: BP 116/64
[2017-05-04 04:07] VITALS: BP 116/65
[2017-05-04] MEDS: Ampicillin/Sulbactam Sod 3 GM in NS 110 ML IVPB SCH ×3 (05:57→21:59)
--- NOTE | 2017-05-04 06:53 | Pulmonology Progress Note ---
Assessment/Plan Assessment/Plan 1. Respiratory failure. 2. Liver failure. 3. Cirrhosis with ascites. 4. Alcoholism. 5. Pulmonary infiltrates and effusions, probably due to ascites and possible superimposed pneumonia. 6. UTI bipap qhs and prn distress titrate o2 nebs IV ABx fu need for repeat para and possible thoracentesis 3 liters ascites removed CXR friday disc w RN, mom Subjective Constitutional: Reports: no symptoms HEENT: Repors: no symptoms Respiratory: Reports: no symptoms Cardiovascular: Reports: no symptoms Gastrointestinal/Abdominal: Reports: no symptoms Allergies: Coded Allergies: No Known Allergies (Unverified , 04/29/17) Subjective seen and examined believes he is being dc today sitter in the room awake moves extremities tolerating pt remains on o2 no cp nv or bleeding Objective Last 24 Hour Vital Signs Date Time Temp Pulse Resp B/P (MAP) Pulse Ox O2 Delivery O2 Flow Rate FiO2 05/04/17 04:07 98.2 76 20 116/65 99 Room Air 05/04/17 04:00 73 05/04/17 00:01 97.2 73 20 116/64 97 Room Air 05/04/17 00:00 72 05/03/17 20:59 96 Nasal Cannula 3.0 32 05/03/17 20:59 Nasal Cannula 3.0 32 05/03/17 20:00 70 05/03/17 20:00 97.2 72 20 116/48 100 Room Air 05/03/17 16:00 74 05/03/17 16:00 97.5 72 18 100/66 93 Nasal Cannula 3.0 05/03/17 12:00 71 05/03/17 12:00 97.7 76 18 134/71 96 Nasal Cannula 3.0 05/03/17 09:48 Nasal Cannula 4.0 36 05/03/17 09:48 98 Nasal Cannula 4.0 05/03/17 08:00 97.8 78 22 100/59 90 Nasal Cannula 2.0 05/03/17 08:00 74 HEENT: other - icteric Respiratory/Chest: lungs clear Cardiovascular: normal rate, regular rhythm Abdomen: soft, non tender, no organomegaly, non distended, no mass Extremities: no cyanosis Skin: no rash, no lesions Neurologic/Psychiatric: abnormal gait, alert Laboratory Tests 05/03/17 11:25: White Blood Count 14.1H, Red Blood Count 2.19L, Hemoglobin 8.0L, Hematocrit 25.4L, Mean Corpuscular Volume 116H, Mean Corpuscular Hemoglobin 36.8H, Mean Corpuscular Hemoglobin Concent 31.7L, Red Cell Distribution Width 18.7H, Platelet Count 120L, Mean Platelet Volume 6.9, Neutrophils (%) (Auto) , Lymphocytes (%) (Auto) , Monocytes (%) (Auto) , Eosinophils (%) (Auto) , Basophils (%) (Auto) , Differential Total Cells Counted 100, Neutrophils % ( Manual) 95H, Lymphocytes % (Manual) 2L, Monocytes % (Manual) 3, Eosinophils % ( Manual) 0, Basophils % (Manual) 0, Band Neutrophils 0, Platelet Estimate DecreasedL, Platelet Morphology Normal, Hypochromasia 1+, Anisocytosis 1+, Sodium Level 130L, Potassium Level 3.3L, Chloride Level 95L, Carbon Dioxide Level 27, Anion Gap 8, Blood Urea Nitrogen 49H, Creatinine 1.8H, Estimat Glomerular Filtration Rate 42.0, Glucose Level 147H, Uric Acid 8.0H, Calcium Level 7.5L, Phosphorus Level 3.3, Magnesium Level 2.5H, Total Bilirubin 19.7H, Direct Bilirubin 17.1H, Aspartate Amino Transf (AST/SGOT) 154H, Alanine Aminotransferase (ALT/SGPT) 34, Alkaline Phosphatase 322H, Total Creatine Kinase 23L, C-Reactive Protein, Quantitative 5.3H, Pro-B-Type Natriuretic Peptide 3416H, Total Protein 4.6L, Albumin 1.7L, Globulin 2.9, Albumin/Globulin Ratio 0.6L, Amylase Level 113, Lipase 1449H, Vitamin B12 Level 9679H, Folate 46.3H Current Medications Medications (Trade) Dose Ordered Sig/Leonard Route PRN Reason Start Time Stop Time Status Last Admin Dose Admin Ampicillin Sodium/ Sulbactam Sodium 3 gm/Sodium Chloride 110 ml @ 220 mls/hr Q8HR IVPB 05/01/17 22:00 05/07/17 16:59 05/04/17 05:57 Cyanocobalamin (Vitamin B12) 1,000 mcg DAILY SUBQ 05/02/17 09:00 05/06/17 09:01 05/03/17 09:04 Folic Acid (Folate) 5 mg DAILY ORAL 05/02/17 09:00 05/30/17 14:59 05/03/17 09:03 Lactulose (Cephulac) 30 gm THREE TIMES A DAY ORAL 05/02/17 09:00 05/31/17 13:29 05/03/17 18:32 Lorazepam (Ativan 2mg/ml 1ml) 2 mg Q4H PRN IV anxiety/agitation 05/01/17 21:30 05/06/17 21:29 05/02/17 18:29 Midodrine (Pro-Amatine) 10 mg THREE TIMES A DAY ORAL 05/03/17 13:00 06/02/17 12:59 05/03/17 18:32 Octreotide Acetate 500 mcg/ Sodium Chloride 500 ml @ 50 mls/hr Q10H IV 05/01/17 21:30 05/31/17 21:29 05/03/17 23:28 Prednisone (predniSONE) 40 mg DAILY ORAL 05/02/17 09:00 05/30/17 08:59 05/03/17 09:03 Rifaximin (Xifaxan) 550 mg EVERY 12 HOURS ORAL 05/01/17 21:30 05/08/17 21:29 05/03/17 22:05 Thiamine HCl 100 mg/Dextrose 56 ml @ 75 mls/hr Q12HR@0800,2000 IVPB 05/01/17 22:00 05/31/17 21:59 05/03/17 23:27 KELSEY CABAN DO May 04, 2017 06:53
[2017-05-04 08:00] VITALS: BP 115/64
[2017-05-04] MEDS: Lactulose 20gm/30ml UDC ORAL SCH ×4 (08:23→18:25)
[2017-05-04] MEDS: Thiamine HCl 100 MG in D5W 55 ML IVPB SCH ×2 (08:23→20:24)
[2017-05-04] MEDS: Midodrine 10mg tab ORAL SCH ×3 (08:24→18:25)
[2017-05-04] MEDS: Vitamin B12 1000mcg/ml Inj SUBQ SCH (08:26)
[2017-05-04] MEDS: Octreotide Acetate 500 MCG in Sodium Chloride 500ML 499 ML IV SCH ×2 (10:10→19:49)
--- NOTE | 2017-05-04 10:38 | General Progress Note ---
Assessment/Plan Problem List: (1) Jaundice of recent onset ICD Codes: R17 - Unspecified jaundice SNOMED: 58166085 (2) Ascites due to alcoholic cirrhosis ICD Codes: K70.31 - Alcoholic cirrhosis of liver with ascites SNOMED: 2988700342686641 (3) etoh withdrawal (4) depression (5) Pneumonia ICD Codes: J18.9 - Pneumonia, unspecified organism SNOMED: 833211140 (6) Acalculous cholecystitis ICD Codes: K81.9 - Cholecystitis, unspecified SNOMED: 00815477 Status: stable, progressing, tolerating diet Assessment/Plan ot pt diet abx cbc bmp am Subjective Constitutional: Reports: weakness Allergies: Coded Allergies: No Known Allergies (Unverified , 04/29/17) All Systems: reviewed and negative except above Subjective sleepy in bed Objective Last 24 Hour Vital Signs Date Time Temp Pulse Resp B/P (MAP) Pulse Ox O2 Delivery O2 Flow Rate FiO2 05/04/17 08:00 80 05/04/17 08:00 97.0 79 20 115/64 91 Room Air 05/04/17 07:24 98 Room Air 05/04/17 07:24 Room Air 05/04/17 04:07 98.2 76 20 116/65 99 Room Air 05/04/17 04:00 73 05/04/17 00:01 97.2 73 20 116/64 97 Room Air 05/04/17 00:00 72 05/03/17 20:59 96 Nasal Cannula 3.0 32 05/03/17 20:59 Nasal Cannula 3.0 32 05/03/17 20:00 70 05/03/17 20:00 97.2 72 20 116/48 100 Room Air 05/03/17 16:00 74 05/03/17 16:00 97.5 72 18 100/66 93 Nasal Cannula 3.0 05/03/17 12:00 71 05/03/17 12:00 97.7 76 18 134/71 96 Nasal Cannula 3.0 Intake and Output 05/04/17 05/05/17 19:00 07:00 Intake Total 156 ml Balance 156 ml IV Total 156 ml Laboratory Tests 05/03/17 11:25: White Blood Count 14.1H, Red Blood Count 2.19L, Hemoglobin 8.0L, Hematocrit 25.4L, Mean Corpuscular Volume 116H, Mean Corpuscular Hemoglobin 36.8H, Mean Corpuscular Hemoglobin Concent 31.7L, Red Cell Distribution Width 18.7H, Platelet Count 120L, Mean Platelet Volume 6.9, Neutrophils (%) (Auto) , Lymphocytes (%) (Auto) , Monocytes (%) (Auto) , Eosinophils (%) (Auto) , Basophils (%) (Auto) , Differential Total Cells Counted 100, Neutrophils % ( Manual) 95H, Lymphocytes % (Manual) 2L, Monocytes % (Manual) 3, Eosinophils % ( Manual) 0, Basophils % (Manual) 0, Band Neutrophils 0, Platelet Estimate DecreasedL, Platelet Morphology Normal, Hypochromasia 1+, Anisocytosis 1+, Sodium Level 130L, Potassium Level 3.3L, Chloride Level 95L, Carbon Dioxide Level 27, Anion Gap 8, Blood Urea Nitrogen 49H, Creatinine 1.8H, Estimat Glomerular Filtration Rate 42.0, Glucose Level 147H, Uric Acid 8.0H, Calcium Level 7.5L, Phosphorus Level 3.3, Magnesium Level 2.5H, Total Bilirubin 19.7H, Direct Bilirubin 17.1H, Aspartate Amino Transf (AST/SGOT) 154H, Alanine Aminotransferase (ALT/SGPT) 34, Alkaline Phosphatase 322H, Total Creatine Kinase 23L, C-Reactive Protein, Quantitative 5.3H, Pro-B-Type Natriuretic Peptide 3416H, Total Protein 4.6L, Albumin 1.7L, Globulin 2.9, Albumin/Globulin Ratio 0.6L, Amylase Level 113, Lipase 1449H, Vitamin B12 Level 9679H, Folate 46.3H Height (Feet): 5 Height (Inches): 8.00 Weight (Pounds): 205 General Appearance: lethargic EENT: normal ENT inspection Neck: normal alignment Cardiovascular: normal peripheral pulses, normal rate, regular rhythm Respiratory/Chest: chest wall non-tender, lungs clear, normal breath sounds Abdomen: normal bowel sounds, non tender, soft Extremities: normal inspection Edema: no edema noted Arm (L), no edema noted Arm (R), no edema noted Leg (L), no edema noted Leg (R), no edema noted Pedal (L), no edema noted Pedal (R), no edema noted Generalized Neurologic: motor weakness Skin: normal pigmentation, warm/dry MEENA AGUIRRE May 04, 2017 10:37
--- NOTE | 2017-05-04 11:13 | General Progress Note ---
Assessment/Plan Status: unchanged Assessment/Plan status: renal failure, likely hepatorenal low Na due to anasarca Low K Jaundice Anemia high Lipase High lactic low alb Plan; labs pending- K , Phos , Mag as needed Urine studies per GI transfuse monitor renal parameters- monitor lytes poor prognosis Subjective ROS Limited/Unobtainable: No Constitutional: Reports: malaise, weakness Allergies: Coded Allergies: No Known Allergies (Unverified , 04/29/17) Objective Last 24 Hour Vital Signs Date Time Temp Pulse Resp B/P (MAP) Pulse Ox O2 Delivery O2 Flow Rate FiO2 05/04/17 08:00 80 05/04/17 08:00 97.0 79 20 115/64 91 Room Air 05/04/17 07:24 98 Room Air 05/04/17 07:24 Room Air 05/04/17 04:07 98.2 76 20 116/65 99 Room Air 05/04/17 04:00 73 05/04/17 00:01 97.2 73 20 116/64 97 Room Air 05/04/17 00:00 72 05/03/17 20:59 96 Nasal Cannula 3.0 32 05/03/17 20:59 Nasal Cannula 3.0 32 05/03/17 20:00 70 05/03/17 20:00 97.2 72 20 116/48 100 Room Air 05/03/17 16:00 74 05/03/17 16:00 97.5 72 18 100/66 93 Nasal Cannula 3.0 05/03/17 12:00 71 05/03/17 12:00 97.7 76 18 134/71 96 Nasal Cannula 3.0 Intake and Output 05/04/17 05/05/17 19:00 07:00 Intake Total 156 ml Balance 156 ml IV Total 156 ml Laboratory Tests 05/03/17 11:25: White Blood Count 14.1H, Red Blood Count 2.19L, Hemoglobin 8.0L, Hematocrit 25.4L, Mean Corpuscular Volume 116H, Mean Corpuscular Hemoglobin 36.8H, Mean Corpuscular Hemoglobin Concent 31.7L, Red Cell Distribution Width 18.7H, Platelet Count 120L, Mean Platelet Volume 6.9, Neutrophils (%) (Auto) , Lymphocytes (%) (Auto) , Monocytes (%) (Auto) , Eosinophils (%) (Auto) , Basophils (%) (Auto) , Differential Total Cells Counted 100, Neutrophils % ( Manual) 95H, Lymphocytes % (Manual) 2L, Monocytes % (Manual) 3, Eosinophils % ( Manual) 0, Basophils % (Manual) 0, Band Neutrophils 0, Platelet Estimate DecreasedL, Platelet Morphology Normal, Hypochromasia 1+, Anisocytosis 1+, Sodium Level 130L, Potassium Level 3.3L, Chloride Level 95L, Carbon Dioxide Level 27, Anion Gap 8, Blood Urea Nitrogen 49H, Creatinine 1.8H, Estimat Glomerular Filtration Rate 42.0, Glucose Level 147H, Uric Acid 8.0H, Calcium Level 7.5L, Phosphorus Level 3.3, Magnesium Level 2.5H, Total Bilirubin 19.7H, Direct Bilirubin 17.1H, Aspartate Amino Transf (AST/SGOT) 154H, Alanine Aminotransferase (ALT/SGPT) 34, Alkaline Phosphatase 322H, Total Creatine Kinase 23L, C-Reactive Protein, Quantitative 5.3H, Pro-B-Type Natriuretic Peptide 3416H, Total Protein 4.6L, Albumin 1.7L, Globulin 2.9, Albumin/Globulin Ratio 0.6L, Amylase Level 113, Lipase 1449H, Vitamin B12 Level 9679H, Folate 46.3H Height (Feet): 5 Height (Inches): 8.00 Weight (Pounds): 205 General Appearance: no apparent distress, lethargic, confused Cardiovascular: normal rate Respiratory/Chest: decreased breath sounds Abdomen: distended Objective galinasarca MIKAELA AYOUB May 04, 2017 11:13
[2017-05-04 11:50] LABS: MEAN CORPUSCULAR HEMOGLOBIN 37.8 PG (27.0-31.0); MEAN CORPUSCULAR HGB CONC 32.6 G/DL (32.0-36.0); MEAN CORPUSCULAR VOLUME 116 FL (80-99); MEAN PLATELET VOLUME 6.3 FL (6.5-10.1); PLATELET COUNT 135 K/UL (150-450); RED BLOOD COUNT 2.28 M/UL (4.70-6.10); RED CELL DISTRIBUTION WIDTH 19.5 % (11.6-14.8); WHITE BLOOD COUNT 15.1 K/UL (4.8-10.8)
[2017-05-04 11:53] LABS: INR 1.4 (0.9-1.1); PROTHROMBIN TIME 14.3 SEC (9.30-11.50)
[2017-05-04 12:00] VITALS: BP 111/60
[2017-05-04 12:11] LABS: LYMPHOCYTES % (MANUAL) 2 % (20-45); NEUTROPHILS % (MANUAL) 93 % (45-75); TOTAL CELLS COUNTED 100
[2017-05-04 12:12] LABS: ANISOCYTOSIS 1+; BAND NEUTROPHILS % (MANUAL) 0 % (0-8); BASOPHILS % (MANUAL) 0 % (0-2); EOSINOPHILS % (MANUAL) 0 % (0-3); HYPOCHROMASIA 1+; MACROCYTES 1+; PLATELET ESTIMATE DECREASED; PLATELET MORPHOLOGY NORMAL
[2017-05-04 12:51] LABS: ALANINE AMINOTRANSFERASE 46 U/L (12-78); ALBUMIN/GLOBULIN RATIO 0.7 (1.0-2.7); ANION GAP 10 (5-15); ASPARTATE AMINO TRANSFERASE 161 U/L (15-37); CALCIUM 7.7 MG/DL (8.5-10.1); CARBON DIOXIDE 27 MMOL/L (21-32); CHLORIDE 103 MMOL/L (98-107); CREATININE 1.4 MG/DL (0.55-1.30); GLOMERULAR FILTRATION RATE 56.1 mL/min (>60); POTASSIUM 3.4 MMOL/L (3.5-5.1); SODIUM 140 MMOL/L (136-145); TOTAL PROTEIN 4.3 G/DL (6.4-8.2)
[2017-05-04 12:52] LABS: MAGNESIUM 2.6 MG/DL (1.8-2.4); PHOSPHORUS 3.6 MG/DL (2.5-4.9); URIC ACID 8.1 MG/DL (2.6-7.2)
--- NOTE | 2017-05-04 13:21 | General Progress Note ---
Progress Note Progress Note Surgery: doing well. no acute events. comfortable. tolerating diet. slowly improving. no n/v/f/c. exam stable. acute severe alcoholic hepatitis improving with medical management -no surgical intervention necessary -slowly improving -will follow peripherally Alverto Latham May 04, 2017 13:21
[2017-05-04 13:45] LABS: BILIRUBIN,DIRECT 16.9 MG/DL (0.0-0.3)
[2017-05-04 16:00] VITALS: BP 109/66
--- NOTE | 2017-05-04 18:19 | General Progress Note ---
Assessment/Plan Problem List: (1) Alcohol abuse ICD Codes: F10.10 - Alcohol abuse, uncomplicated SNOMED: 10764115 (2) depression (3) Ascites due to alcoholic cirrhosis ICD Codes: K70.31 - Alcoholic cirrhosis of liver with ascites SNOMED: 0423628330504203 (4) Jaundice of recent onset ICD Codes: R17 - Unspecified jaundice SNOMED: 81615691 Assessment/Plan s/p paracentesis yielding 3.1 liters of bright yellow fluid. elevated ammonia >> lactulose + Xifaxan low sodium diet dc propranolol, ordered midodrine 7.5mg>> increased to 10 mg octreotide 50mcg/hr gtt banana bag abx avoid diuretics for now prednisone 40mg x 28 days, then taper monitor LFTs mucomyst>> completed fu labs not transplant candidate given active drinking Subjective ROS Limited/Unobtainable: Yes Allergies: Coded Allergies: No Known Allergies (Unverified , 04/29/17) Subjective no event doing better per mom Objective Last 24 Hour Vital Signs Date Time Temp Pulse Resp B/P (MAP) Pulse Ox O2 Delivery O2 Flow Rate FiO2 05/04/17 16:00 97.9 75 18 109/66 97 Nasal Cannula 3.0 05/04/17 12:00 77 05/04/17 12:00 98.1 76 18 111/60 91 Room Air 05/04/17 08:00 80 05/04/17 08:00 97.0 79 20 115/64 91 Room Air 05/04/17 07:24 98 Room Air 05/04/17 07:24 Room Air 05/04/17 04:07 98.2 76 20 116/65 99 Room Air 05/04/17 04:00 73 05/04/17 00:01 97.2 73 20 116/64 97 Room Air 05/04/17 00:00 72 05/03/17 20:59 96 Nasal Cannula 3.0 32 05/03/17 20:59 Nasal Cannula 3.0 32 05/03/17 20:00 70 05/03/17 20:00 97.2 72 20 116/48 100 Room Air Intake and Output 05/04/17 05/05/17 19:00 07:00 Intake Total 616 ml Balance 616 ml IV Total 616 ml Laboratory Tests 05/04/17 11:17: White Blood Count 15.1H, Red Blood Count 2.28L, Hemoglobin 8.6L, Hematocrit 26.5L, Mean Corpuscular Volume 116H, Mean Corpuscular Hemoglobin 37.8H, Mean Corpuscular Hemoglobin Concent 32.6, Red Cell Distribution Width 19.5H, Platelet Count 135L, Mean Platelet Volume 6.3L, Neutrophils (%) (Auto) , Lymphocytes (%) (Auto) , Monocytes (%) (Auto) , Eosinophils (%) (Auto) , Basophils (%) (Auto) , Differential Total Cells Counted 100, Neutrophils % ( Manual) 93H, Lymphocytes % (Manual) 2L, Monocytes % (Manual) 5, Eosinophils % ( Manual) 0, Basophils % (Manual) 0, Band Neutrophils 0, Platelet Estimate DecreasedL, Platelet Morphology Normal, Hypochromasia 1+, Anisocytosis 1+, Macrocytosis 1+, Prothrombin Time 14.3H, Prothromb Time International Ratio 1.4H , Sodium Level 140#, Potassium Level 3.4L, Chloride Level 103, Carbon Dioxide Level 27, Anion Gap 10, Blood Urea Nitrogen 44H, Creatinine 1.4H, Estimat Glomerular Filtration Rate 56.1, Glucose Level 140H, Uric Acid 8.1H, Calcium Level 7.7L, Phosphorus Level 3.6, Magnesium Level 2.6H, Total Bilirubin 19.9H, Direct Bilirubin 16.9H, Gamma Glutamyl Transpeptidase 509H, Aspartate Amino Transf (AST/SGOT) 161H, Alanine Aminotransferase (ALT/SGPT) 46, Alkaline Phosphatase 335H, Ammonia 45H, Total Protein 4.3L, Albumin 1.7L, Globulin 2.6, Albumin/Globulin Ratio 0.7L Height (Feet): 5 Height (Inches): 8.00 Weight (Pounds): 205 General Appearance: alert EENT: normal ENT inspection, scleral icterus Neck: supple Cardiovascular: normal rate Respiratory/Chest: lungs clear Abdomen: normal bowel sounds, non tender, soft Extremities: non-tender BARTOLO CHAPA May 04, 2017 18:19
--- NOTE | 2017-05-04 18:46 | Infectious Diseases Prog Note ---
Assessment/Plan Problems: (1) Acalculous cholecystitis Assessment & Plan: on unasyn empirically, recommend HIDA scan to rule out silent gallbladder , general surgery is following (2) Pneumonia Assessment & Plan: with patchy infiltrates on CT scan of the chest and fever, on unasyn , to cover for possible acalculous cholecystitis too, monitor CXR (3) Jaundice of recent onset Assessment & Plan: suspect alcholic hepatitis related, on oral prednisone , GI is following (4) Ascites due to alcoholic cirrhosis Assessment & Plan: S/P paracentesis with no evidence of fluids infection , already on unasyn , await culture (5) Alcohol abuse Assessment & Plan: recommend counseling and rehabilitation (6) Leukocytosis Assessment & Plan: persistent due to oral prednisone , monitor WBC (7) Liver cirrhosis, alcoholic Assessment & Plan: screening for hepatitis is negative, screening for HIV is negative , follow up with GI , avoid alcohol and Tylenol Subjective Constitutional: Reports: fatigue, anorexia HEENT: Reports: no symptoms Respiratory: Reports: dry cough Breasts: Reports: no symptoms Cardiovascular: Reports: no symptoms Gastrointestinal/Abdominal: Reports: diarrhea, bloating Genitourinary: Reports: no symptoms Neurologic: Reports: weakness Psychiatric: Reports: depression Skin: Reports: no symptoms Endocrine: Reports: no symptoms Hematologic: Reports: no symptoms Allergies: Coded Allergies: No Known Allergies (Unverified , 04/29/17) Subjective he feels a little better, on nonrebreathable mask, had paracentesis with fluids is not suggestive of infection, had low grade fever Objective Vital Signs Last 24 Hour Vital Signs Date Time Temp Pulse Resp B/P (MAP) Pulse Ox O2 Delivery O2 Flow Rate FiO2 05/04/17 16:00 97.9 75 18 109/66 97 Nasal Cannula 3.0 05/04/17 16:00 71 05/04/17 12:00 77 05/04/17 12:00 98.1 76 18 111/60 91 Room Air 05/04/17 08:00 80 05/04/17 08:00 97.0 79 20 115/64 91 Room Air 05/04/17 07:24 98 Room Air 05/04/17 07:24 Room Air 05/04/17 04:07 98.2 76 20 116/65 99 Room Air 05/04/17 04:00 73 05/04/17 00:01 97.2 73 20 116/64 97 Room Air 05/04/17 00:00 72 05/03/17 20:59 96 Nasal Cannula 3.0 32 05/03/17 20:59 Nasal Cannula 3.0 32 05/03/17 20:00 70 05/03/17 20:00 97.2 72 20 116/48 100 Room Air Height (Feet): 5 Height (Inches): 8.00 Weight (Pounds): 205 General Appearance: WD/WN, no acute distress HEENT: normocephalic, atraumatic, anicteric, mucous membranes moist, PERRL, EOMI, pharynx normal, supple, no JVD, other - icteric sclera Respiratory/Chest: chest wall non-tender, lungs clear, normal breath sounds, no respiratory distress, no accessory muscle use Cardiovascular: normal peripheral pulses, normal rate, regular rhythm, no gallop/murmur, no JVD Abdomen: soft, non tender, no organomegaly, no mass, no scars, absent bowel sounds, distended Extremities: no cyanosis, no clubbing Skin: no rash, no lesions, no ulcers Neurologic/Psychiatric: alert, oriented x 3, responsive Lymphatic: no neck adenopathy, no groin adenopathy Laboratory Tests Test 05/04/17 11:17 White Blood Count 15.1 K/UL (4.8-10.8) H Red Blood Count 2.28 M/UL (4.70-6.10) L Hemoglobin 8.6 G/DL (14.2-18.0) L Hematocrit 26.5 % (42.0-52.0) L Mean Corpuscular Volume 116 FL (80-99) H Mean Corpuscular Hemoglobin 37.8 PG (27.0-31.0) H Mean Corpuscular Hemoglobin Concent 32.6 G/DL (32.0-36.0) Red Cell Distribution Width 19.5 % (11.6-14.8) H Platelet Count 135 K/UL (150-450) L Mean Platelet Volume 6.3 FL (6.5-10.1) L Neutrophils (%) (Auto) % (45.0-75.0) Lymphocytes (%) (Auto) % (20.0-45.0) Monocytes (%) (Auto) % (1.0-10.0) Eosinophils (%) (Auto) % (0.0-3.0) Basophils (%) (Auto) % (0.0-2.0) Differential Total Cells Counted 100 Neutrophils % (Manual) 93 % (45-75) H Lymphocytes % (Manual) 2 % (20-45) L Monocytes % (Manual) 5 % (1-10) Eosinophils % (Manual) 0 % (0-3) Basophils % (Manual) 0 % (0-2) Band Neutrophils 0 % (0-8) Platelet Estimate Decreased L Platelet Morphology Normal Hypochromasia 1+ Anisocytosis 1+ Macrocytosis 1+ Prothrombin Time 14.3 SEC (9.30-11.50) H Prothromb Time International Ratio 1.4 (0.9-1.1) H Sodium Level 140 MMOL/L (136-145) # Potassium Level 3.4 MMOL/L (3.5-5.1) L Chloride Level 103 MMOL/L (98-107) Carbon Dioxide Level 27 MMOL/L (21-32) Anion Gap 10 (5-15) Blood Urea Nitrogen 44 mg/dL (7-18) H Creatinine 1.4 MG/DL (0.55-1.30) H Estimat Glomerular Filtration Rate 56.1 mL/min (>60) Glucose Level 140 MG/DL (74-106) H Uric Acid 8.1 MG/DL (2.6-7.2) H Calcium Level 7.7 MG/DL (8.5-10.1) L Phosphorus Level 3.6 MG/DL (2.5-4.9) Magnesium Level 2.6 MG/DL (1.8-2.4) H Total Bilirubin 19.9 MG/DL (0.2-1.0) H Direct Bilirubin 16.9 MG/DL (0.0-0.3) H Gamma Glutamyl Transpeptidase 509 U/L (5-85) H Aspartate Amino Transf (AST/SGOT) 161 U/L (15-37) H Alanine Aminotransferase (ALT/SGPT) 46 U/L (12-78) Alkaline Phosphatase 335 U/L (46-116) H Ammonia 45 umol/L (11.2-31.7) H Total Protein 4.3 G/DL (6.4-8.2) L Albumin 1.7 G/DL (3.4-5.0) L Globulin 2.6 g/dL Albumin/Globulin Ratio 0.7 (1.0-2.7) L Current Medications Medications (Trade) Dose Ordered Sig/Leonard Route PRN Reason Start Time Stop Time Status Last Admin Dose Admin Ampicillin Sodium/ Sulbactam Sodium 3 gm/Sodium Chloride 110 ml @ 220 mls/hr Q8HR IVPB 05/01/17 22:00 05/07/17 16:59 05/04/17 13:58 Cyanocobalamin (Vitamin B12) 1,000 mcg DAILY SUBQ 05/02/17 09:00 05/06/17 09:01 05/04/17 08:26 Folic Acid (Folate) 5 mg DAILY ORAL 05/02/17 09:00 05/30/17 14:59 05/04/17 08:24 Lactulose (Cephulac) 30 gm THREE TIMES A DAY ORAL 05/02/17 09:00 05/31/17 13:29 05/04/17 18:25 Lorazepam (Ativan 2mg/ml 1ml) 2 mg Q4H PRN IV anxiety/agitation 05/01/17 21:30 05/06/17 21:29 05/02/17 18:29 Midodrine (Pro-Amatine) 10 mg THREE TIMES A DAY ORAL 05/03/17 13:00 06/02/17 12:59 05/04/17 18:25 Octreotide Acetate 500 mcg/ Sodium Chloride 500 ml @ 50 mls/hr Q10H IV 05/01/17 21:30 05/31/17 21:29 05/04/17 10:10 Prednisone (predniSONE) 40 mg DAILY ORAL 05/02/17 09:00 05/30/17 08:59 05/04/17 08:25 Rifaximin (Xifaxan) 550 mg EVERY 12 HOURS ORAL 05/01/17 21:30 05/08/17 21:29 05/04/17 08:23 Thiamine HCl 100 mg/Dextrose 56 ml @ 75 mls/hr Q12HR@0800,2000 IVPB 05/01/17 22:00 05/31/17 21:59 05/04/17 08:23 Janae Lopez M.D. May 04, 2017 18:46
--- NOTE | 2017-05-04 18:57 | General Progress Note ---
Assessment/Plan Status: stable, progressing Assessment/Plan encephalopathy -dc valium as he has liver failure. not given -ativan as it excrete through kidneys for w/d -inpatient drug rehab Subjective Neurologic/Psychiatric: Reports: anxiety, depressed, emotional problems Allergies: Coded Allergies: No Known Allergies (Unverified , 04/29/17) Subjective the pts mom was at bedside. the pt is calm and doing better. Objective Last 24 Hour Vital Signs Date Time Temp Pulse Resp B/P (MAP) Pulse Ox O2 Delivery O2 Flow Rate FiO2 05/04/17 16:00 97.9 75 18 109/66 97 Nasal Cannula 3.0 05/04/17 16:00 71 05/04/17 12:00 77 05/04/17 12:00 98.1 76 18 111/60 91 Room Air 05/04/17 08:00 80 05/04/17 08:00 97.0 79 20 115/64 91 Room Air 05/04/17 07:24 98 Room Air 05/04/17 07:24 Room Air 05/04/17 04:07 98.2 76 20 116/65 99 Room Air 05/04/17 04:00 73 05/04/17 00:01 97.2 73 20 116/64 97 Room Air 05/04/17 00:00 72 05/03/17 20:59 96 Nasal Cannula 3.0 32 05/03/17 20:59 Nasal Cannula 3.0 32 05/03/17 20:00 70 05/03/17 20:00 97.2 72 20 116/48 100 Room Air Intake and Output 05/04/17 05/05/17 19:00 07:00 Intake Total 1136 ml Output Total 750 ml Balance 386 ml Intake Oral 470 ml IV Total 666 ml Output Urine Total 750 ml # Bowel Movements 5 Laboratory Tests 05/04/17 11:17: White Blood Count 15.1H, Red Blood Count 2.28L, Hemoglobin 8.6L, Hematocrit 26.5L, Mean Corpuscular Volume 116H, Mean Corpuscular Hemoglobin 37.8H, Mean Corpuscular Hemoglobin Concent 32.6, Red Cell Distribution Width 19.5H, Platelet Count 135L, Mean Platelet Volume 6.3L, Neutrophils (%) (Auto) , Lymphocytes (%) (Auto) , Monocytes (%) (Auto) , Eosinophils (%) (Auto) , Basophils (%) (Auto) , Differential Total Cells Counted 100, Neutrophils % ( Manual) 93H, Lymphocytes % (Manual) 2L, Monocytes % (Manual) 5, Eosinophils % ( Manual) 0, Basophils % (Manual) 0, Band Neutrophils 0, Platelet Estimate DecreasedL, Platelet Morphology Normal, Hypochromasia 1+, Anisocytosis 1+, Macrocytosis 1+, Prothrombin Time 14.3H, Prothromb Time International Ratio 1.4H , Sodium Level 140#, Potassium Level 3.4L, Chloride Level 103, Carbon Dioxide Level 27, Anion Gap 10, Blood Urea Nitrogen 44H, Creatinine 1.4H, Estimat Glomerular Filtration Rate 56.1, Glucose Level 140H, Uric Acid 8.1H, Calcium Level 7.7L, Phosphorus Level 3.6, Magnesium Level 2.6H, Total Bilirubin 19.9H, Direct Bilirubin 16.9H, Gamma Glutamyl Transpeptidase 509H, Aspartate Amino Transf (AST/SGOT) 161H, Alanine Aminotransferase (ALT/SGPT) 46, Alkaline Phosphatase 335H, Ammonia 45H, Total Protein 4.3L, Albumin 1.7L, Globulin 2.6, Albumin/Globulin Ratio 0.7L Height (Feet): 5 Height (Inches): 8.00 Weight (Pounds): 205 General Appearance: no apparent distress, alert, overweight Neurologic: alert, oriented x 3, responsive, depressed affect Trino Kirby M.D. May 04, 2017 18:57
[2017-05-04 19:50] VITALS: BP 111/66
--- NOTE | 2017-05-04 22:00 | General Progress Note ---
Assessment/Plan Assessment/Plan # Anemia of alcoholic myelosuppression - continue treatment, with banana bag and alcohol withdrawal protocol ---> anemia w/u has been reviewed. Continue to watch counts and transfuse as needed (if hgb below 7) --> improving --> s/p transfusion # Coagulopathy - 2/2 liver disease and underlying cirrhosis # Leukopenia is related to splenomegaly and splenic sequestration # Thrombocytopenia is due to cirrhosis, liver involvement and splenomegaly # Hyperbilibirubinemia - 2/2 etoh abuse, liver cirrhosis # ETOH withdrawal # PNA # Jaundice of recent onset # Ascites s/p paracentesis Subjective ROS Limited/Unobtainable: Yes Allergies: Coded Allergies: No Known Allergies (Unverified , 04/29/17) Subjective NAD Objective Last 24 Hour Vital Signs Date Time Temp Pulse Resp B/P (MAP) Pulse Ox O2 Delivery O2 Flow Rate FiO2 05/04/17 20:00 71 05/04/17 19:50 98.1 82 18 111/66 96 Nasal Cannula 4.0 05/04/17 16:00 97.9 75 18 109/66 97 Nasal Cannula 3.0 05/04/17 16:00 71 05/04/17 12:00 77 05/04/17 12:00 98.1 76 18 111/60 91 Room Air 05/04/17 08:00 80 05/04/17 08:00 97.0 79 20 115/64 91 Room Air 05/04/17 07:24 98 Room Air 05/04/17 07:24 Room Air 05/04/17 04:07 98.2 76 20 116/65 99 Room Air 05/04/17 04:00 73 05/04/17 00:01 97.2 73 20 116/64 97 Room Air 05/04/17 00:00 72 Intake and Output 05/04/17 05/05/17 19:00 07:00 Intake Total 1136 ml Output Total 750 ml Balance 386 ml Intake Oral 470 ml IV Total 666 ml Output Urine Total 750 ml # Bowel Movements 5 Laboratory Tests 05/04/17 11:17: White Blood Count 15.1H, Red Blood Count 2.28L, Hemoglobin 8.6L, Hematocrit 26.5L, Mean Corpuscular Volume 116H, Mean Corpuscular Hemoglobin 37.8H, Mean Corpuscular Hemoglobin Concent 32.6, Red Cell Distribution Width 19.5H, Platelet Count 135L, Mean Platelet Volume 6.3L, Neutrophils (%) (Auto) , Lymphocytes (%) (Auto) , Monocytes (%) (Auto) , Eosinophils (%) (Auto) , Basophils (%) (Auto) , Differential Total Cells Counted 100, Neutrophils % ( Manual) 93H, Lymphocytes % (Manual) 2L, Monocytes % (Manual) 5, Eosinophils % ( Manual) 0, Basophils % (Manual) 0, Band Neutrophils 0, Platelet Estimate DecreasedL, Platelet Morphology Normal, Hypochromasia 1+, Anisocytosis 1+, Macrocytosis 1+, Prothrombin Time 14.3H, Prothromb Time International Ratio 1.4H , Sodium Level 140#, Potassium Level 3.4L, Chloride Level 103, Carbon Dioxide Level 27, Anion Gap 10, Blood Urea Nitrogen 44H, Creatinine 1.4H, Estimat Glomerular Filtration Rate 56.1, Glucose Level 140H, Uric Acid 8.1H, Calcium Level 7.7L, Phosphorus Level 3.6, Magnesium Level 2.6H, Total Bilirubin 19.9H, Direct Bilirubin 16.9H, Gamma Glutamyl Transpeptidase 509H, Aspartate Amino Transf (AST/SGOT) 161H, Alanine Aminotransferase (ALT/SGPT) 46, Alkaline Phosphatase 335H, Ammonia 45H, Total Protein 4.3L, Albumin 1.7L, Globulin 2.6, Albumin/Globulin Ratio 0.7L Height (Feet): 5 Height (Inches): 8.00 Weight (Pounds): 205 General Appearance: no apparent distress EENT: normal ENT inspection Neck: normal inspection Cardiovascular: normal peripheral pulses Abdomen: non tender Skin: warm/dry Joshua Hurley May 04, 2017 22:00
--- NOTE | 2017-05-04 23:40 | Cardiology Progress Note ---
Assessment/Plan Assessment/Plan 1. Sinus tachycardia, resolved, due to intravascular volume depletion due to hypo-albuminemia, albumin administration is only short term resolution. Consider non-selective B-blockers if recurrent. 2. Hypotension, on midodrine. 3. Mild pulmonary HTN 4. Chronic liver disease. Subjective Subjective Sinus rhythm at 71. No cardiac events. Objective Last 24 Hour Vital Signs Date Time Temp Pulse Resp B/P (MAP) Pulse Ox O2 Delivery O2 Flow Rate FiO2 05/04/17 20:00 71 05/04/17 19:50 98.1 82 18 111/66 96 Nasal Cannula 4.0 05/04/17 16:00 97.9 75 18 109/66 97 Nasal Cannula 3.0 05/04/17 16:00 71 05/04/17 12:00 77 05/04/17 12:00 98.1 76 18 111/60 91 Room Air 05/04/17 08:00 80 05/04/17 08:00 97.0 79 20 115/64 91 Room Air 05/04/17 07:24 98 Room Air 05/04/17 07:24 Room Air 05/04/17 04:07 98.2 76 20 116/65 99 Room Air 05/04/17 04:00 73 05/04/17 00:01 97.2 73 20 116/64 97 Room Air 05/04/17 00:00 72 Intake and Output 05/04/17 05/05/17 19:00 07:00 Intake Total 1136 ml 168.77 ml Output Total 750 ml Balance 386 ml 168.77 ml Intake Oral 470 ml IV Total 666 ml 168.77 ml Output Urine Total 750 ml # Bowel Movements 5 1 2D Echo: LVEF at 55%, RVSP 45 mmHg Laboratory Tests Test 05/04/17 11:17 White Blood Count 15.1 K/UL (4.8-10.8) H Red Blood Count 2.28 M/UL (4.70-6.10) L Hemoglobin 8.6 G/DL (14.2-18.0) L Hematocrit 26.5 % (42.0-52.0) L Mean Corpuscular Volume 116 FL (80-99) H Mean Corpuscular Hemoglobin 37.8 PG (27.0-31.0) H Mean Corpuscular Hemoglobin Concent 32.6 G/DL (32.0-36.0) Red Cell Distribution Width 19.5 % (11.6-14.8) H Platelet Count 135 K/UL (150-450) L Mean Platelet Volume 6.3 FL (6.5-10.1) L Neutrophils (%) (Auto) % (45.0-75.0) Lymphocytes (%) (Auto) % (20.0-45.0) Monocytes (%) (Auto) % (1.0-10.0) Eosinophils (%) (Auto) % (0.0-3.0) Basophils (%) (Auto) % (0.0-2.0) Differential Total Cells Counted 100 Neutrophils % (Manual) 93 % (45-75) H Lymphocytes % (Manual) 2 % (20-45) L Monocytes % (Manual) 5 % (1-10) Eosinophils % (Manual) 0 % (0-3) Basophils % (Manual) 0 % (0-2) Band Neutrophils 0 % (0-8) Platelet Estimate Decreased L Platelet Morphology Normal Hypochromasia 1+ Anisocytosis 1+ Macrocytosis 1+ Prothrombin Time 14.3 SEC (9.30-11.50) H Prothromb Time International Ratio 1.4 (0.9-1.1) H Sodium Level 140 MMOL/L (136-145) # Potassium Level 3.4 MMOL/L (3.5-5.1) L Chloride Level 103 MMOL/L (98-107) Carbon Dioxide Level 27 MMOL/L (21-32) Anion Gap 10 (5-15) Blood Urea Nitrogen 44 mg/dL (7-18) H Creatinine 1.4 MG/DL (0.55-1.30) H Estimat Glomerular Filtration Rate 56.1 mL/min (>60) Glucose Level 140 MG/DL (74-106) H Uric Acid 8.1 MG/DL (2.6-7.2) H Calcium Level 7.7 MG/DL (8.5-10.1) L Phosphorus Level 3.6 MG/DL (2.5-4.9) Magnesium Level 2.6 MG/DL (1.8-2.4) H Total Bilirubin 19.9 MG/DL (0.2-1.0) H Direct Bilirubin 16.9 MG/DL (0.0-0.3) H Gamma Glutamyl Transpeptidase 509 U/L (5-85) H Aspartate Amino Transf (AST/SGOT) 161 U/L (15-37) H Alanine Aminotransferase (ALT/SGPT) 46 U/L (12-78) Alkaline Phosphatase 335 U/L (46-116) H Ammonia 45 umol/L (11.2-31.7) H Total Protein 4.3 G/DL (6.4-8.2) L Albumin 1.7 G/DL (3.4-5.0) L Globulin 2.6 g/dL Albumin/Globulin Ratio 0.7 (1.0-2.7) L Objective HEENT: Head is normocephalic. PERRLA, EOMI. Eyes show scleral icterus. NECK: JVD is negative, no carotid bruit, carotid upstroke 2+ B/L LUNGS: Decreased breath sounds in the bases. CARDIAC: Rhythm is regular. Tachycardia, no murmurs, gallops or rubs. ABDOMEN: Distended, soft and nontender. There is a fluid wave noted. EXTREMITIES: No clubbing or cyanosis. There is 2+ edema. YAQUELIN HARDY May 04, 2017 23:40
[2017-05-05] VITALS: BP 115/66
[2017-05-05 04:00] VITALS: BP 129/72
[2017-05-05] MEDS: Ampicillin/Sulbactam Sod 3 GM in NS 110 ML IVPB SCH ×3 (05:39→21:30)
[2017-05-05] MEDS: Octreotide Acetate 500 MCG in Sodium Chloride 500ML 499 ML IV SCH (05:41)
[2017-05-05 06:15] LABS: MEAN CORPUSCULAR HEMOGLOBIN 39.3 PG (27.0-31.0); MEAN CORPUSCULAR HGB CONC 33.2 G/DL (32.0-36.0); MEAN CORPUSCULAR VOLUME 119 FL (80-99); MEAN PLATELET VOLUME 6.6 FL (6.5-10.1); PLATELET COUNT 127 K/UL (150-450); RED BLOOD COUNT 2.43 M/UL (4.70-6.10); RED CELL DISTRIBUTION WIDTH 18.6 % (11.6-14.8); WHITE BLOOD COUNT 15.2 K/UL (4.8-10.8)
[2017-05-05 06:21] LABS: BD FL SOURCE PARACENTHESIS; BD FL VOLUME 27 mL
[2017-05-05 06:22] LABS: LDH, BODY FLUID 107 U/L
[2017-05-05 06:54] LABS: ALANINE AMINOTRANSFERASE 50 U/L (12-78); ALBUMIN/GLOBULIN RATIO 0.5 (1.0-2.7); ANION GAP 12 (5-15); ASPARTATE AMINO TRANSFERASE 176 U/L (15-37); CALCIUM 8.2 MG/DL (8.5-10.1); CARBON DIOXIDE 23 MMOL/L (21-32); CHLORIDE 103 MMOL/L (98-107); CREATININE 1.2 MG/DL (0.55-1.30); GLOMERULAR FILTRATION RATE > 60 mL/min (>60); POTASSIUM 3.5 MMOL/L (3.5-5.1); SODIUM 138 MMOL/L (136-145)
[2017-05-05 07:10] LABS: BILIRUBIN,DIRECT 15.4 MG/DL (0.0-0.3)
[2017-05-05 07:23] LABS: ANISOCYTOSIS 1+; BAND NEUTROPHILS % (MANUAL) 4 % (0-8); BASOPHILS % (MANUAL) 0 % (0-2); EOSINOPHILS % (MANUAL) 0 % (0-3); LYMPHOCYTES % (MANUAL) 4 % (20-45); NEUTROPHILS % (MANUAL) 89 % (45-75); PLATELET ESTIMATE DECREASED; PLATELET MORPHOLOGY NORMAL; TOTAL CELLS COUNTED 100
[2017-05-05 08:00] VITALS: BP 113/66
--- NOTE | 2017-05-05 08:15 | Consultation ---
DATE OF CONSULTATION: 04/30/2017 NEUROLOGICAL CONSULTATION CONSULTING PHYSICIAN: Demar Mcallister M.D. REFERRING PHYSICIAN: Sunday Choi M.D. HISTORY OF PRESENT ILLNESS: This 42-year-old gentleman seen in neurological consultation to evaluate new changes in mental status in the setting of alcohol abuse and liver cirrhosis. According to the patient as well as his mother notes that he started to have alcohol abuse more than 10 years ago. He describes it as having at least one-fifth of whiskey daily. Symptoms severely deteriorated after he his in November of this year. He became severely depressed. Meanwhile, he had a intense work schedule where he apparently was not reaching the optimum of his abilities. Finally, 10 days ago, he was fired. The patient's mother who lives in [place] was concerned that something was happening, so she arrived here 4 days ago. At that point, the patient started to develop darkening of his urine, jaundice, abdominal distention. His last drink was approximately a day or 2 prior to admission. The patient was admitted after he developed also shortness of breath and abdominal swelling. On admission, vital signs were stable. Blood pressure 130/70. He was afebrile. Pulse oximetry 99%. The patient was ill-appearing and jaundiced, but fully oriented. He had sinus tachycardia; blood pressure down to 95/65. He was placed on BiPAP oxygen mask. His chest x-ray revealed markedly low lung volumes, bilateral interstitial and alveolar infiltrates versus edema, bilateral pleural effusion. Abdominal ultrasound, hepatomegaly, coarse hepatic echogenicity consistent with hepatocellular disease, gallbladder sludge, acute acalculous cholecystitis not excluded, evidence of ascites, borderline splenomegaly, and small left pleural effusion. CT scan of the chest, abdomen, and pelvis was obtained revealing enlarged liver, suggesting diffuse geographic change, early cirrhotic changes, evidence of portal hypertension with ascites, mesenteric congestion, splenomegaly, small varices, bilateral pleural effusion, bilateral lower lobe consolidation, and atelectasis, probably compressive. Wall thickening of the ascending colon and terminal ileum, suspicious for colitis/enteritis, colonic diverticulosis, edema, bilateral flank subcutaneous fat, borderline peripancreatic lymphadenopathy, mild gynecomastia, and unusual appearance of the medial left 9th rib. Following admission, the patient was started on thiamine; normal saline; albumin supplements; Rocephin; folic acid; norepinephrine, titrated for hypotension; vitamin K; thiamine 200 mg b.i.d.; Mucomyst; Valium 5 mg at bedtime; lorazepam 2 mg IV q.4 h. p.r.n. severe anxiety; prednisone 40 mg daily; and Inderal 10 mg b.i.d. Lab work following the admission included WBC of 14.6, hemoglobin 9.1 with a repeat study this morning 6.9, elevated MCV and MCH, platelet count down to 132,000. Coagulation panel with INR 1.5, PT of 16.1. On repeat study, INR of 1.8. Toxicology panel negative. Chemistry panel with sodium 131, BUN of 24, creatinine 1.5, elevated total bilirubin 16.9, alkaline phosphatase 533, BNP 436, albumin 1.8, lipase more than 1000. Normal TSH. Repeat study revealed elevation of AST of 235, GGT of 692, lactic acid 3.10. 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 He has more than 10 years history of heavy alcohol abuse. . Lives alone. His mother came to visit him a few days ago. No drug abuse reported. PAST MEDICAL HISTORY: History of no major medical problems reported except alcohol-related. In addition, he has depression. REVIEW OF SYSTEMS: The patient is somewhat confused, unable to define his status stating that he is feeling alright except that "I messed up my liver with alcohol." Denies headache or dizziness. Denies pain. No shortness of breath at this time. No abdominal pain or discomfort. No urinary incontinence. PHYSICAL EXAMINATION: GENERAL: A well-developed, but ill-appearing man, not in acute distress. He appears to be pale. HEENT: Eyes jaundiced. NECK: Supple. No meningeal signs. MUSCULOSKELETAL: Examination unremarkable. There are no deformities. Peripheral pulses 1+ and symmetric. NEUROLOGIC: Mental Status: He is alert and oriented x3, but he is a poor historian. He is often responding inappropriately. This intermittently with normal responses. Follow commands properly. Cranial Nerves Cranial Nerve II: Pupils both responding to light and accommodation. Extraocular movements full range. CRANIAL NERVE V: Normal corneal responses. CRANIAL NERVE VII: No facial asymmetry. CRANIAL NERVE VIII: Normal hearing. CRANIAL NERVES IX-XII: Within normal limits. Motor Examination: Normal muscle tone. Strength 5/5 in all extremities. There is some mild tremor on both outstretched hands. Deep Tendon Reflexes: 1+, bilaterally symmetric. Plantar responses flexor. SENSORY EXAMINATION: Normal to pin stimulation. GAIT: Not tested. IMPRESSION: 1. Alcohol abuse. 2. Alcohol withdrawal with early onset of delirium. 3. Depression. 4. Alcoholic cirrhosis with ascites and jaundice. 5. Renal insufficiency. DISCUSSION: The patient has no focal lateralizing neurological deficits, but presents with some sense of confusion, insomnia, presenting with early onset of withdrawal syndrome with delirium. The patient has a background of depression to be addressed by Psychiatry. Meanwhile, the patient has significant hepatorenal syndrome related to alcohol abuse. The patient will continue with the current treatment as defined by GI. We will maintain magnesium supplements, thiamine 200 mg daily, folate, B12 supplements. Check ammonia level. The patient may need blood transfusion. The patient to be maintained on Valium p.r.n. for agitation, restlessness, and persistent insomnia. We will follow for paroxysmal activity. Thank you for allowing me to see this interesting patient in neurological consultation. Demar Mcallister M.D. DR: MORE JOB#: [id number] CC:
--- NOTE | 2017-05-05 08:15 | Consultation ---
DATE OF CONSULTATION: 04/29/2017 HEMATOLOGY/ONCOLOGY CONSULTATION REFERRING PHYSICIAN: Sunday Choi M.D. REASON FOR CONSULTATION: Evaluation of anemia and macrocytosis, coagulopathy. IDENTIFYING DATA: Dear Sunday Choi, The patient is a pleasant 42-year-old male with past medical history significant for alcohol abuse, chronic alcohol dependence at this time presents to the ER with shortness of breath. The patient been abusing alcohol for more than 10 years, drinks multiple drinks daily. He came here secondary to shortness of breath earlier in the day, . Labs were drawn and found to have a low platelet counts as well as anemia. Hematology service was consulted for further evaluation and treatment. He has also noticed some for the past several weeks, some jaundice as well as abdominal pain, . PAST MEDICAL HISTORY: Alcohol dependence, vitamin D deficiency, and jaundice. PAST SURGICAL HISTORY: None reported. MEDICATIONS: Vitamin D and thiamine. FAMILY HISTORY: Noncontributory. REVIEW OF SYSTEMS: CONSTITUTIONAL: No fever, chills, or night sweats. SKIN: No rashes, bumps, or itching. HEENT: No headache, hearing, or vision changes. BREASTS: No lumps, pain, or discharge. PULMONARY: No cough. shortness of breath. GASTROINTESTINAL: No nausea, vomiting, or diarrhea. GENITOURINARY: No dysuria, frequency, or urgency. MUSCULOSKELETAL: No joint swelling, muscle pain, or trauma. PHYSICAL EXAMINATION: VITAL SIGNS: Reviewed. He is on BiPAP. GENERAL: No acute distress. PULMONARY: Decreased breath sounds. CARDIOVASCULAR: Regular rate. No S3 or S4. ABDOMEN: Soft, nontender, and nondistended. EXTREMITIES: There is 1+ edema. LABORATORY AND DIAGNOSTIC DATA: WBC 14.6, hemoglobin 9.1, hematocrit 28 and platelet count 132,000, and MCV 120. ASSESSMENT AND RECOMMENDATION: 1. Anemia secondary to vitamin B12 deficiency. The patient's vitamin B12 level is undetectable, administer multivitamin as well as B12 and banana bag. 2. Anemia with microcytosis secondary to alcoholic myelosuppression. 3. Coagulopathy secondary to alcohol abuse. 4. Jaundice, recent onset. CAT scan completely reviewed. Surgery is on board. 5. Thrombocytopenia secondary to alcohol abuse and myelosuppression. 6. Azotemia with renal failure. Continue to closely monitor. 7. Anemia secondary to chronic disease. Workup has been reviewed. Ferritin is elevated. 8. Alcohol withdrawal syndrome. 9. Continue to closely follow. Joshua Hurley M.D. DR: CAITLIN JOB#: [id number] CC:
[2017-05-05] MEDS: Thiamine HCl 100 MG in D5W 55 ML IVPB SCH (08:16)
[2017-05-05] MEDS: Vitamin B12 1000mcg/ml Inj SUBQ SCH (09:01)
[2017-05-05] MEDS: Lactulose 20gm/30ml UDC ORAL SCH (09:01)
[2017-05-05] MEDS: Midodrine 10mg tab ORAL SCH ×3 (09:02→17:57)
--- NOTE | 2017-05-05 10:43 | Diagnostic Imaging Report ---
Indication: COPD, shortness of breath Technique: One view of the chest Comparison: 05/02/2017 Findings: There is bilateral diffuse interstitial edema again demonstrated. Large right pleural effusion persists. Findings are unchanged Impression: Unchanged, over one day, findings as above.
--- NOTE | 2017-05-05 11:44 | Pulmonology Progress Note ---
Assessment/Plan Assessment/Plan 1. Respiratory failure. 2. Liver failure. 3. Cirrhosis with ascites. 4. Alcoholism. 5. Pulmonary infiltrates and effusions, probably due to ascites and possible superimposed pneumonia. 6. UTI bipap qhs and prn distress titrate o2 nebs IV ABx fu need for repeat para and possible thoracentesis 3 liters ascites removed CXR today Subjective Interval Events: No overnight events Constitutional: Reports: no symptoms HEENT: Repors: no symptoms Respiratory: Reports: dry cough, shortness of breath Cardiovascular: Reports: no symptoms Gastrointestinal/Abdominal: Reports: no symptoms Allergies: Coded Allergies: No Known Allergies (Unverified , 04/29/17) Objective Last 24 Hour Vital Signs Date Time Temp Pulse Resp B/P (MAP) Pulse Ox O2 Delivery O2 Flow Rate FiO2 05/05/17 08:00 97.7 96 19 113/66 93 Nasal Cannula 3.0 05/05/17 04:14 97 Room Air 21 05/05/17 04:14 Room Air 21 05/05/17 04:00 97.1 84 18 129/72 96 Nasal Cannula 4.0 05/05/17 04:00 87 05/05/17 00:00 80 05/05/17 00:00 97.2 82 18 115/66 98 Nasal Cannula 4.0 05/04/17 20:00 71 05/04/17 19:50 98.1 82 18 111/66 96 Nasal Cannula 4.0 05/04/17 16:00 97.9 75 18 109/66 97 Nasal Cannula 3.0 05/04/17 16:00 71 05/04/17 12:00 77 05/04/17 12:00 98.1 76 18 111/60 91 Room Air General Appearance: no acute distress HEENT: normocephalic Respiratory/Chest: decreased breath sounds Cardiovascular: normal peripheral pulses, normal rate Abdomen: soft, non tender Laboratory Tests 05/05/17 04:25: White Blood Count 15.2H, Red Blood Count 2.43L, Hemoglobin 9.5L, Hematocrit 28.8L, Mean Corpuscular Volume 119H, Mean Corpuscular Hemoglobin 39.3H, Mean Corpuscular Hemoglobin Concent 33.2, Red Cell Distribution Width 18.6H, Platelet Count 127L, Mean Platelet Volume 6.6, Neutrophils (%) (Auto) , Lymphocytes (%) (Auto) , Monocytes (%) (Auto) , Eosinophils (%) (Auto) , Basophils (%) (Auto) , Differential Total Cells Counted 100, Neutrophils % ( Manual) 89H, Lymphocytes % (Manual) 4L, Monocytes % (Manual) 3, Eosinophils % ( Manual) 0, Basophils % (Manual) 0, Band Neutrophils 4, Platelet Estimate DecreasedL, Platelet Morphology Normal, Anisocytosis 1+, Sodium Level 138, Potassium Level 3.5, Chloride Level 103, Carbon Dioxide Level 23, Anion Gap 12, Blood Urea Nitrogen 40H, Creatinine 1.2, Estimat Glomerular Filtration Rate > 60 , Glucose Level 105, Calcium Level 8.2L, Total Bilirubin 20.3H, Direct Bilirubin 15.4H, Aspartate Amino Transf (AST/SGOT) 176H, Alanine Aminotransferase (ALT/SGPT) 50, Alkaline Phosphatase 372H, Total Protein 5.0L, Albumin 1.7L, Globulin 3.3, Albumin/Globulin Ratio 0.5L Current Medications Medications (Trade) Dose Ordered Sig/Leonard Route PRN Reason Start Time Stop Time Status Last Admin Dose Admin Ampicillin Sodium/ Sulbactam Sodium 3 gm/Sodium Chloride 110 ml @ 220 mls/hr Q8HR IVPB 05/01/17 22:00 05/07/17 16:59 05/05/17 05:39 Lactulose (Cephulac) 30 gm DAILY ORAL 05/05/17 09:00 05/31/17 13:29 05/05/17 09:01 Lorazepam (Ativan 2mg/ml 1ml) 2 mg Q4H PRN IV anxiety/agitation 05/01/17 21:30 05/06/17 21:29 05/02/17 18:29 Midodrine (Pro-Amatine) 10 mg THREE TIMES A DAY ORAL 05/03/17 13:00 06/02/17 12:59 05/05/17 09:02 Octreotide Acetate (SandoSTATIN) 100 mcg Q8HR SUBQ 05/05/17 14:00 06/04/17 13:59 Prednisone (predniSONE) 40 mg DAILY ORAL 05/02/17 09:00 05/30/17 08:59 05/05/17 09:02 Rifaximin (Xifaxan) 550 mg EVERY 12 HOURS ORAL 05/01/17 21:30 05/08/17 21:29 05/05/17 09:02 Jason Johnson MD May 05, 2017 11:44
--- NOTE | 2017-05-05 11:55 | GI Progress Note ---
Assessment/Plan Problems: (1) Jaundice of recent onset ICD Codes: R17 - Unspecified jaundice SNOMED: 88419569 (2) etoh withdrawal (3) depression (4) Pneumonia ICD Codes: J18.9 - Pneumonia, unspecified organism SNOMED: 789512039 (5) Acalculous cholecystitis ICD Codes: K81.9 - Cholecystitis, unspecified SNOMED: 39048669 (6) Ascites due to alcoholic cirrhosis ICD Codes: K70.31 - Alcoholic cirrhosis of liver with ascites SNOMED: 9477253190453650 (7) Alcohol abuse ICD Codes: F10.10 - Alcohol abuse, uncomplicated SNOMED: 70465933 Status: stable Status Narrative Discussed with Dr. Daly. Assessment/Plan s/p paracentesis yielding 3.1 liters of bright yellow fluid. okay for DC per GI standpoint elevated ammonia >> lactulose + Xifaxan low sodium diet dc propranolol, ordered midodrine 7.5mg>> increased to 10 mg octreotide 50mcg/hr gtt banana bag abx avoid diuretics for now prednisone 40mg x 28 days, then taper monitor LFTs mucomyst>> completed fu labs not transplant candidate given active drinking Subjective Subjective limited, fatigue Objective Last 24 Hour Vital Signs Date Time Temp Pulse Resp B/P (MAP) Pulse Ox O2 Delivery O2 Flow Rate FiO2 05/05/17 08:00 97.7 96 19 113/66 93 Nasal Cannula 3.0 05/05/17 08:00 97 05/05/17 04:14 97 Room Air 21 05/05/17 04:14 Room Air 21 05/05/17 04:00 97.1 84 18 129/72 96 Nasal Cannula 4.0 05/05/17 04:00 87 05/05/17 00:00 80 05/05/17 00:00 97.2 82 18 115/66 98 Nasal Cannula 4.0 05/04/17 20:00 71 05/04/17 19:50 98.1 82 18 111/66 96 Nasal Cannula 4.0 05/04/17 16:00 97.9 75 18 109/66 97 Nasal Cannula 3.0 05/04/17 16:00 71 05/04/17 12:00 77 05/04/17 12:00 98.1 76 18 111/60 91 Room Air Laboratory Tests Test 10/16/17 04:25 White Blood Count 15.2 K/UL (4.8-10.8) H Red Blood Count 2.43 M/UL (4.70-6.10) L Hemoglobin 9.5 G/DL (14.2-18.0) L Hematocrit 28.8 % (42.0-52.0) L Mean Corpuscular Volume 119 FL (80-99) H Mean Corpuscular Hemoglobin 39.3 PG (27.0-31.0) H Mean Corpuscular Hemoglobin Concent 33.2 G/DL (32.0-36.0) Red Cell Distribution Width 18.6 % (11.6-14.8) H Platelet Count 127 K/UL (150-450) L Mean Platelet Volume 6.6 FL (6.5-10.1) Neutrophils (%) (Auto) % (45.0-75.0) Lymphocytes (%) (Auto) % (20.0-45.0) Monocytes (%) (Auto) % (1.0-10.0) Eosinophils (%) (Auto) % (0.0-3.0) Basophils (%) (Auto) % (0.0-2.0) Differential Total Cells Counted 100 Neutrophils % (Manual) 89 % (45-75) H Lymphocytes % (Manual) 4 % (20-45) L Monocytes % (Manual) 3 % (1-10) Eosinophils % (Manual) 0 % (0-3) Basophils % (Manual) 0 % (0-2) Band Neutrophils 4 % (0-8) Platelet Estimate Decreased L Platelet Morphology Normal Anisocytosis 1+ Sodium Level 138 MMOL/L (136-145) Potassium Level 3.5 MMOL/L (3.5-5.1) Chloride Level 103 MMOL/L (98-107) Carbon Dioxide Level 23 MMOL/L (21-32) Anion Gap 12 (5-15) Blood Urea Nitrogen 40 mg/dL (7-18) H Creatinine 1.2 MG/DL (0.55-1.30) Estimat Glomerular Filtration Rate > 60 mL/min (>60) Glucose Level 105 MG/DL (74-106) Calcium Level 8.2 MG/DL (8.5-10.1) L Total Bilirubin 20.3 MG/DL (0.2-1.0) H Direct Bilirubin 15.4 MG/DL (0.0-0.3) H Aspartate Amino Transf (AST/SGOT) 176 U/L (15-37) H Alanine Aminotransferase (ALT/SGPT) 50 U/L (12-78) Alkaline Phosphatase 372 U/L (46-116) H Total Protein 5.0 G/DL (6.4-8.2) L Albumin 1.7 G/DL (3.4-5.0) L Globulin 3.3 g/dL Albumin/Globulin Ratio 0.5 (1.0-2.7) L Height (Feet): 5 Height (Inches): 8.00 Weight (Pounds): 205 General Appearance: no apparent distress, alert Cardiovascular: normal rate Respiratory/Chest: normal breath sounds Abdominal Exam: normal bowel sounds, non tender, soft Objective Jaundice Danay Grady N.P. May 05, 2017 11:55
--- NOTE | 2017-05-05 11:58 | General Progress Note ---
Assessment/Plan Status: stable - from renal stand, unchanged - from hepatic stand point Assessment/Plan status: renal failure on admit , likely hepatorenal- Cr now normalized low Na due to anasarca Low K Jaundice Anemia high Lipase High lactic low alb Plan; K , Phos , Mag as needed Urine studies per GI- transfuse - monitor renal parameters- monitor lytes- poor prognosis- Subjective ROS Limited/Unobtainable: No Allergies: Coded Allergies: No Known Allergies (Unverified , 04/29/17) Objective Last 24 Hour Vital Signs Date Time Temp Pulse Resp B/P (MAP) Pulse Ox O2 Delivery O2 Flow Rate FiO2 05/05/17 08:00 97.7 96 19 113/66 93 Nasal Cannula 3.0 05/05/17 08:00 97 05/05/17 04:14 97 Room Air 21 05/05/17 04:14 Room Air 21 05/05/17 04:00 97.1 84 18 129/72 96 Nasal Cannula 4.0 05/05/17 04:00 87 05/05/17 00:00 80 05/05/17 00:00 97.2 82 18 115/66 98 Nasal Cannula 4.0 05/04/17 20:00 71 05/04/17 19:50 98.1 82 18 111/66 96 Nasal Cannula 4.0 05/04/17 16:00 97.9 75 18 109/66 97 Nasal Cannula 3.0 05/04/17 16:00 71 05/04/17 12:00 77 05/04/17 12:00 98.1 76 18 111/60 91 Room Air Laboratory Tests 05/05/17 04:25: White Blood Count 15.2H, Red Blood Count 2.43L, Hemoglobin 9.5L, Hematocrit 28.8L, Mean Corpuscular Volume 119H, Mean Corpuscular Hemoglobin 39.3H, Mean Corpuscular Hemoglobin Concent 33.2, Red Cell Distribution Width 18.6H, Platelet Count 127L, Mean Platelet Volume 6.6, Neutrophils (%) (Auto) , Lymphocytes (%) (Auto) , Monocytes (%) (Auto) , Eosinophils (%) (Auto) , Basophils (%) (Auto) , Differential Total Cells Counted 100, Neutrophils % ( Manual) 89H, Lymphocytes % (Manual) 4L, Monocytes % (Manual) 3, Eosinophils % ( Manual) 0, Basophils % (Manual) 0, Band Neutrophils 4, Platelet Estimate DecreasedL, Platelet Morphology Normal, Anisocytosis 1+, Sodium Level 138, Potassium Level 3.5, Chloride Level 103, Carbon Dioxide Level 23, Anion Gap 12, Blood Urea Nitrogen 40H, Creatinine 1.2, Estimat Glomerular Filtration Rate > 60 , Glucose Level 105, Calcium Level 8.2L, Total Bilirubin 20.3H, Direct Bilirubin 15.4H, Aspartate Amino Transf (AST/SGOT) 176H, Alanine Aminotransferase (ALT/SGPT) 50, Alkaline Phosphatase 372H, Total Protein 5.0L, Albumin 1.7L, Globulin 3.3, Albumin/Globulin Ratio 0.5L Height (Feet): 5 Height (Inches): 8.00 Weight (Pounds): 205 General Appearance: no apparent distress Cardiovascular: tachycardia Respiratory/Chest: decreased breath sounds Abdomen: distended Edema: 2+ Arm (L), 2+ Arm (R), 2+ Leg (L), 2+ Leg (R), 2+ Pedal (L), 2+ Pedal ( R), 2+ Generalized Skin: other - Jaundiced Objective MIKAELA Mcdowell May 05, 2017 11:58
[2017-05-05 12:00] VITALS: BP 117/75
--- NOTE | 2017-05-05 12:04 | General Progress Note ---
Progress Note Progress Note Surgery: no acute events. Ambulatory today. tolerating diet. no pain. comfortable. no n/v/f/c. exam stable, labs stable. no acute surgical intervention necessary. will follow. Alverto Latham May 05, 2017 12:04
[2017-05-05 15:20] LABS: METHYLMALONIC ACID 308 nmol/L (0-378)
[2017-05-05] MEDS: SandoSTATIN 100mcg/ml amp SUBQ SCH ×2 (15:41→21:30)
[2017-05-05] MEDS: LORazepam Inj 2mg/ml 1ml IV PRN (15:48)
[2017-05-05 16:00] VITALS: BP 104/62
--- NOTE | 2017-05-05 20:29 | General Progress Note ---
Assessment/Plan Problem List: (1) Jaundice of recent onset ICD Codes: R17 - Unspecified jaundice SNOMED: 21759022 (2) Ascites due to alcoholic cirrhosis ICD Codes: K70.31 - Alcoholic cirrhosis of liver with ascites SNOMED: 3544256368674638 (3) etoh withdrawal (4) depression (5) Pneumonia ICD Codes: J18.9 - Pneumonia, unspecified organism SNOMED: 722202796 Status: progressing Assessment/Plan cirrhosis etoh jaundice improving ascites confused reviewed chart and labs poor prognosis etho abuse Subjective ROS Limited/Unobtainable: Yes Constitutional: Reports: no symptoms Allergies: Coded Allergies: No Known Allergies (Unverified , 04/29/17) Objective Last 24 Hour Vital Signs Date Time Temp Pulse Resp B/P (MAP) Pulse Ox O2 Delivery O2 Flow Rate FiO2 05/05/17 16:00 82 05/05/17 16:00 97.7 69 17 104/62 95 Nasal Cannula 3.0 05/05/17 12:00 96.8 87 19 117/75 94 Nasal Cannula 3.0 05/05/17 12:00 103 05/05/17 08:00 97.7 96 19 113/66 93 Nasal Cannula 3.0 05/05/17 08:00 97 05/05/17 04:14 97 Room Air 21 05/05/17 04:14 Room Air 21 05/05/17 04:00 97.1 84 18 129/72 96 Nasal Cannula 4.0 05/05/17 04:00 87 05/05/17 00:00 80 05/05/17 00:00 97.2 82 18 115/66 98 Nasal Cannula 4.0 Intake and Output 05/05/17 05/06/17 19:00 07:00 Intake Total 900 ml Balance 900 ml Intake Oral 900 ml # Bowel Movements 9 Laboratory Tests 05/05/17 04:25: White Blood Count 15.2H, Red Blood Count 2.43L, Hemoglobin 9.5L, Hematocrit 28.8L, Mean Corpuscular Volume 119H, Mean Corpuscular Hemoglobin 39.3H, Mean Corpuscular Hemoglobin Concent 33.2, Red Cell Distribution Width 18.6H, Platelet Count 127L, Mean Platelet Volume 6.6, Neutrophils (%) (Auto) , Lymphocytes (%) (Auto) , Monocytes (%) (Auto) , Eosinophils (%) (Auto) , Basophils (%) (Auto) , Differential Total Cells Counted 100, Neutrophils % ( Manual) 89H, Lymphocytes % (Manual) 4L, Monocytes % (Manual) 3, Eosinophils % ( Manual) 0, Basophils % (Manual) 0, Band Neutrophils 4, Platelet Estimate DecreasedL, Platelet Morphology Normal, Anisocytosis 1+, Sodium Level 138, Potassium Level 3.5, Chloride Level 103, Carbon Dioxide Level 23, Anion Gap 12, Blood Urea Nitrogen 40H, Creatinine 1.2, Estimat Glomerular Filtration Rate > 60 , Glucose Level 105, Calcium Level 8.2L, Total Bilirubin 20.3H, Direct Bilirubin 15.4H, Aspartate Amino Transf (AST/SGOT) 176H, Alanine Aminotransferase (ALT/SGPT) 50, Alkaline Phosphatase 372H, Total Protein 5.0L, Albumin 1.7L, Globulin 3.3, Albumin/Globulin Ratio 0.5L Height (Feet): 5 Height (Inches): 8.00 Weight (Pounds): 205 Respiratory/Chest: lungs clear Sunday Choi MD May 05, 2017 20:29
[2017-05-05 20:50] VITALS: BP 112/64
--- NOTE | 2017-05-05 21:28 | General Progress Note ---
Assessment/Plan Status: stable, progressing Assessment/Plan encephalopathy improving alcohol dependence -dc valium as he has liver failure. not given -ativan as it excrete through kidneys for w/d -inpatient drug rehab -consider prozac when he improves Subjective Constitutional: Reports: malaise, weakness Neurologic/Psychiatric: Reports: anxiety, depressed, emotional problems Allergies: Coded Allergies: No Known Allergies (Unverified , 04/29/17) Subjective the pts mom was at bedside. the pt is calm and doing better. the pt motivated tos stop drinking and agrees to follow up with a psychiatrist/ Objective Last 24 Hour Vital Signs Date Time Temp Pulse Resp B/P (MAP) Pulse Ox O2 Delivery O2 Flow Rate FiO2 05/05/17 20:50 98.2 74 18 112/64 96 Nasal Cannula 4.0 05/05/17 16:00 82 05/05/17 16:00 97.7 69 17 104/62 95 Nasal Cannula 3.0 05/05/17 12:00 96.8 87 19 117/75 94 Nasal Cannula 3.0 05/05/17 12:00 103 05/05/17 08:00 97.7 96 19 113/66 93 Nasal Cannula 3.0 05/05/17 08:00 97 05/05/17 04:14 97 Room Air 21 05/05/17 04:14 Room Air 21 05/05/17 04:00 97.1 84 18 129/72 96 Nasal Cannula 4.0 05/05/17 04:00 87 05/05/17 00:00 80 05/05/17 00:00 97.2 82 18 115/66 98 Nasal Cannula 4.0 Intake and Output 05/05/17 05/06/17 19:00 07:00 Intake Total 900 ml Balance 900 ml Intake Oral 900 ml # Bowel Movements 9 Laboratory Tests 05/05/17 04:25: White Blood Count 15.2H, Red Blood Count 2.43L, Hemoglobin 9.5L, Hematocrit 28.8L, Mean Corpuscular Volume 119H, Mean Corpuscular Hemoglobin 39.3H, Mean Corpuscular Hemoglobin Concent 33.2, Red Cell Distribution Width 18.6H, Platelet Count 127L, Mean Platelet Volume 6.6, Neutrophils (%) (Auto) , Lymphocytes (%) (Auto) , Monocytes (%) (Auto) , Eosinophils (%) (Auto) , Basophils (%) (Auto) , Differential Total Cells Counted 100, Neutrophils % ( Manual) 89H, Lymphocytes % (Manual) 4L, Monocytes % (Manual) 3, Eosinophils % ( Manual) 0, Basophils % (Manual) 0, Band Neutrophils 4, Platelet Estimate DecreasedL, Platelet Morphology Normal, Anisocytosis 1+, Sodium Level 138, Potassium Level 3.5, Chloride Level 103, Carbon Dioxide Level 23, Anion Gap 12, Blood Urea Nitrogen 40H, Creatinine 1.2, Estimat Glomerular Filtration Rate > 60 , Glucose Level 105, Calcium Level 8.2L, Total Bilirubin 20.3H, Direct Bilirubin 15.4H, Aspartate Amino Transf (AST/SGOT) 176H, Alanine Aminotransferase (ALT/SGPT) 50, Alkaline Phosphatase 372H, Total Protein 5.0L, Albumin 1.7L, Globulin 3.3, Albumin/Globulin Ratio 0.5L Height (Feet): 5 Height (Inches): 8.00 Weight (Pounds): 205 General Appearance: no apparent distress, alert, overweight Neurologic: alert, oriented x 3, responsive, depressed affect Trino Kirby M.D. May 05, 2017 21:27
--- NOTE | 2017-05-05 21:29 | Psych Consult Progress Note ---
Psych Consult Progress Note Consult 05/03 the pt is progressing gradually Vital Signs Last 24 Hour Vital Signs Date Time Temp Pulse Resp B/P (MAP) Pulse Ox O2 Delivery O2 Flow Rate FiO2 05/05/17 20:50 98.2 74 18 112/64 96 Nasal Cannula 4.0 05/05/17 16:00 82 05/05/17 16:00 97.7 69 17 104/62 95 Nasal Cannula 3.0 05/05/17 12:00 96.8 87 19 117/75 94 Nasal Cannula 3.0 05/05/17 12:00 103 05/05/17 08:00 97.7 96 19 113/66 93 Nasal Cannula 3.0 05/05/17 08:00 97 05/05/17 04:14 97 Room Air 21 05/05/17 04:14 Room Air 21 05/05/17 04:00 97.1 84 18 129/72 96 Nasal Cannula 4.0 05/05/17 04:00 87 05/05/17 00:00 80 05/05/17 00:00 97.2 82 18 115/66 98 Nasal Cannula 4.0 Labs Laboratory Tests Test 05/05/17 04:25 White Blood Count 15.2 K/UL (4.8-10.8) H Red Blood Count 2.43 M/UL (4.70-6.10) L Hemoglobin 9.5 G/DL (14.2-18.0) L Hematocrit 28.8 % (42.0-52.0) L Mean Corpuscular Volume 119 FL (80-99) H Mean Corpuscular Hemoglobin 39.3 PG (27.0-31.0) H Mean Corpuscular Hemoglobin Concent 33.2 G/DL (32.0-36.0) Red Cell Distribution Width 18.6 % (11.6-14.8) H Platelet Count 127 K/UL (150-450) L Mean Platelet Volume 6.6 FL (6.5-10.1) Neutrophils (%) (Auto) % (45.0-75.0) Lymphocytes (%) (Auto) % (20.0-45.0) Monocytes (%) (Auto) % (1.0-10.0) Eosinophils (%) (Auto) % (0.0-3.0) Basophils (%) (Auto) % (0.0-2.0) Differential Total Cells Counted 100 Neutrophils % (Manual) 89 % (45-75) H Lymphocytes % (Manual) 4 % (20-45) L Monocytes % (Manual) 3 % (1-10) Eosinophils % (Manual) 0 % (0-3) Basophils % (Manual) 0 % (0-2) Band Neutrophils 4 % (0-8) Platelet Estimate Decreased L Platelet Morphology Normal Anisocytosis 1+ Sodium Level 138 MMOL/L (136-145) Potassium Level 3.5 MMOL/L (3.5-5.1) Chloride Level 103 MMOL/L (98-107) Carbon Dioxide Level 23 MMOL/L (21-32) Anion Gap 12 (5-15) Blood Urea Nitrogen 40 mg/dL (7-18) H Creatinine 1.2 MG/DL (0.55-1.30) Estimat Glomerular Filtration Rate > 60 mL/min (>60) Glucose Level 105 MG/DL (74-106) Calcium Level 8.2 MG/DL (8.5-10.1) L Total Bilirubin 20.3 MG/DL (0.2-1.0) H Direct Bilirubin 15.4 MG/DL (0.0-0.3) H Aspartate Amino Transf (AST/SGOT) 176 U/L (15-37) H Alanine Aminotransferase (ALT/SGPT) 50 U/L (12-78) Alkaline Phosphatase 372 U/L (46-116) H Total Protein 5.0 G/DL (6.4-8.2) L Albumin 1.7 G/DL (3.4-5.0) L Globulin 3.3 g/dL Albumin/Globulin Ratio 0.5 (1.0-2.7) L Medications Current Medications Medications (Trade) Dose Ordered Sig/Leonard Route PRN Reason Start Time Stop Time Status Last Admin Dose Admin Ampicillin Sodium/ Sulbactam Sodium 3 gm/Sodium Chloride 110 ml @ 220 mls/hr Q8HR IVPB 05/01/17 22:00 05/07/17 16:59 05/05/17 15:39 Lactulose (Cephulac) 30 gm DAILY ORAL 05/05/17 09:00 05/31/17 13:29 05/05/17 09:01 Lorazepam (Ativan 2mg/ml 1ml) 2 mg Q4H PRN IV anxiety/agitation 05/01/17 21:30 05/06/17 21:29 05/05/17 15:48 Midodrine (Pro-Amatine) 10 mg THREE TIMES A DAY ORAL 05/03/17 13:00 06/02/17 12:59 05/05/17 17:57 Octreotide Acetate (SandoSTATIN) 100 mcg Q8HR SUBQ 05/05/17 14:00 06/04/17 13:59 05/05/17 15:41 Prednisone (predniSONE) 40 mg DAILY ORAL 05/02/17 09:00 05/30/17 08:59 05/05/17 09:02 Rifaximin (Xifaxan) 550 mg EVERY 12 HOURS ORAL 05/01/17 21:30 06/04/17 21:29 05/05/17 20:35 Problems: Trino Kirby M.D. May 05, 2017 21:28
[2017-05-05] MEDS ORDERED: Tubing IV Secondary IV ONE (21:40)
--- NOTE | 2017-05-05 21:52 | General Progress Note ---
Assessment/Plan Assessment/Plan # Anemia of alcoholic myelosuppression - continue treatment, with banana bag and alcohol withdrawal protocol ---> anemia w/u has been reviewed. Continue to watch counts and transfuse as needed (if hgb below 7) --> improving --> s/p transfusion # Coagulopathy - 2/2 liver disease and underlying cirrhosis # Leukopenia is related to splenomegaly and splenic sequestration # Thrombocytopenia is due to cirrhosis, liver involvement and splenomegaly # Hyperbilibirubinemia - 2/2 etoh abuse, liver cirrhosis # ETOH withdrawal # PNA # Jaundice of recent onset # Ascites s/p paracentesis Subjective ROS Limited/Unobtainable: Yes Allergies: Coded Allergies: No Known Allergies (Unverified , 04/29/17) Subjective no major events, no f/c Objective Last 24 Hour Vital Signs Date Time Temp Pulse Resp B/P (MAP) Pulse Ox O2 Delivery O2 Flow Rate FiO2 05/05/17 20:50 98.2 74 18 112/64 96 Nasal Cannula 4.0 05/05/17 16:00 82 05/05/17 16:00 97.7 69 17 104/62 95 Nasal Cannula 3.0 05/05/17 12:00 96.8 87 19 117/75 94 Nasal Cannula 3.0 05/05/17 12:00 103 05/05/17 08:00 97.7 96 19 113/66 93 Nasal Cannula 3.0 05/05/17 08:00 97 05/05/17 04:14 97 Room Air 21 05/05/17 04:14 Room Air 21 05/05/17 04:00 97.1 84 18 129/72 96 Nasal Cannula 4.0 05/05/17 04:00 87 05/05/17 00:00 80 05/05/17 00:00 97.2 82 18 115/66 98 Nasal Cannula 4.0 Intake and Output 05/05/17 05/06/17 19:00 07:00 Intake Total 900 ml Balance 900 ml Intake Oral 900 ml # Bowel Movements 9 Laboratory Tests 05/05/17 04:25: White Blood Count 15.2H, Red Blood Count 2.43L, Hemoglobin 9.5L, Hematocrit 28.8L, Mean Corpuscular Volume 119H, Mean Corpuscular Hemoglobin 39.3H, Mean Corpuscular Hemoglobin Concent 33.2, Red Cell Distribution Width 18.6H, Platelet Count 127L, Mean Platelet Volume 6.6, Neutrophils (%) (Auto) , Lymphocytes (%) (Auto) , Monocytes (%) (Auto) , Eosinophils (%) (Auto) , Basophils (%) (Auto) , Differential Total Cells Counted 100, Neutrophils % ( Manual) 89H, Lymphocytes % (Manual) 4L, Monocytes % (Manual) 3, Eosinophils % ( Manual) 0, Basophils % (Manual) 0, Band Neutrophils 4, Platelet Estimate DecreasedL, Platelet Morphology Normal, Anisocytosis 1+, Sodium Level 138, Potassium Level 3.5, Chloride Level 103, Carbon Dioxide Level 23, Anion Gap 12, Blood Urea Nitrogen 40H, Creatinine 1.2, Estimat Glomerular Filtration Rate > 60 , Glucose Level 105, Calcium Level 8.2L, Total Bilirubin 20.3H, Direct Bilirubin 15.4H, Aspartate Amino Transf (AST/SGOT) 176H, Alanine Aminotransferase (ALT/SGPT) 50, Alkaline Phosphatase 372H, Total Protein 5.0L, Albumin 1.7L, Globulin 3.3, Albumin/Globulin Ratio 0.5L Height (Feet): 5 Height (Inches): 8.00 Weight (Pounds): 205 General Appearance: no apparent distress EENT: PERRL/EOMI Neck: normal alignment Cardiovascular: regular rhythm Abdomen: soft, no organomegaly Skin: normal pigmentation, warm/dry Joshua Hurley May 05, 2017 21:52
--- NOTE | 2017-05-05 23:21 | Infectious Diseases Prog Note ---
Assessment/Plan Problems: (1) Leukocytosis Assessment & Plan: Sepsis? Reactive due to steroids. Stable. Cultures NGTD. Finish a course of Unasyn for acalculous cholecystitis versus pneumonia. Follow-up WBC. (2) Liver cirrhosis, alcoholic (3) Ascites due to alcoholic cirrhosis (4) Jaundice of recent onset (5) Alcohol abuse Subjective Allergies: Coded Allergies: No Known Allergies (Unverified , 04/29/17) Objective Vital Signs Last 24 Hour Vital Signs Date Time Temp Pulse Resp B/P (MAP) Pulse Ox O2 Delivery O2 Flow Rate FiO2 05/05/17 20:50 98.2 74 18 112/64 96 Nasal Cannula 4.0 05/05/17 16:00 82 05/05/17 16:00 97.7 69 17 104/62 95 Nasal Cannula 3.0 05/05/17 12:00 96.8 87 19 117/75 94 Nasal Cannula 3.0 05/05/17 12:00 103 05/05/17 08:00 97.7 96 19 113/66 93 Nasal Cannula 3.0 05/05/17 08:00 97 05/05/17 04:14 97 Room Air 21 05/05/17 04:14 Room Air 21 05/05/17 04:00 97.1 84 18 129/72 96 Nasal Cannula 4.0 05/05/17 04:00 87 05/05/17 00:00 80 05/05/17 00:00 97.2 82 18 115/66 98 Nasal Cannula 4.0 Height (Feet): 5 Height (Inches): 8.00 Weight (Pounds): 205 Laboratory Tests Test 05/05/17 04:25 White Blood Count 15.2 K/UL (4.8-10.8) H Red Blood Count 2.43 M/UL (4.70-6.10) L Hemoglobin 9.5 G/DL (14.2-18.0) L Hematocrit 28.8 % (42.0-52.0) L Mean Corpuscular Volume 119 FL (80-99) H Mean Corpuscular Hemoglobin 39.3 PG (27.0-31.0) H Mean Corpuscular Hemoglobin Concent 33.2 G/DL (32.0-36.0) Red Cell Distribution Width 18.6 % (11.6-14.8) H Platelet Count 127 K/UL (150-450) L Mean Platelet Volume 6.6 FL (6.5-10.1) Neutrophils (%) (Auto) % (45.0-75.0) Lymphocytes (%) (Auto) % (20.0-45.0) Monocytes (%) (Auto) % (1.0-10.0) Eosinophils (%) (Auto) % (0.0-3.0) Basophils (%) (Auto) % (0.0-2.0) Differential Total Cells Counted 100 Neutrophils % (Manual) 89 % (45-75) H Lymphocytes % (Manual) 4 % (20-45) L Monocytes % (Manual) 3 % (1-10) Eosinophils % (Manual) 0 % (0-3) Basophils % (Manual) 0 % (0-2) Band Neutrophils 4 % (0-8) Platelet Estimate Decreased L Platelet Morphology Normal Anisocytosis 1+ Sodium Level 138 MMOL/L (136-145) Potassium Level 3.5 MMOL/L (3.5-5.1) Chloride Level 103 MMOL/L (98-107) Carbon Dioxide Level 23 MMOL/L (21-32) Anion Gap 12 (5-15) Blood Urea Nitrogen 40 mg/dL (7-18) H Creatinine 1.2 MG/DL (0.55-1.30) Estimat Glomerular Filtration Rate > 60 mL/min (>60) Glucose Level 105 MG/DL (74-106) Calcium Level 8.2 MG/DL (8.5-10.1) L Total Bilirubin 20.3 MG/DL (0.2-1.0) H Direct Bilirubin 15.4 MG/DL (0.0-0.3) H Aspartate Amino Transf (AST/SGOT) 176 U/L (15-37) H Alanine Aminotransferase (ALT/SGPT) 50 U/L (12-78) Alkaline Phosphatase 372 U/L (46-116) H Total Protein 5.0 G/DL (6.4-8.2) L Albumin 1.7 G/DL (3.4-5.0) L Globulin 3.3 g/dL Albumin/Globulin Ratio 0.5 (1.0-2.7) L Current Medications Medications (Trade) Dose Ordered Sig/Leonard Route PRN Reason Start Time Stop Time Status Last Admin Dose Admin Ampicillin Sodium/ Sulbactam Sodium 3 gm/Sodium Chloride 110 ml @ 220 mls/hr Q8HR IVPB 05/01/17 22:00 05/07/17 16:59 05/05/17 21:30 Lactulose (Cephulac) 30 gm DAILY ORAL 05/05/17 09:00 05/31/17 13:29 05/05/17 09:01 Lorazepam (Ativan 2mg/ml 1ml) 2 mg Q4H PRN IV anxiety/agitation 05/01/17 21:30 05/06/17 21:29 05/05/17 15:48 Midodrine (Pro-Amatine) 10 mg THREE TIMES A DAY ORAL 05/03/17 13:00 06/02/17 12:59 05/05/17 17:57 Octreotide Acetate (SandoSTATIN) 100 mcg Q8HR SUBQ 05/05/17 14:00 06/04/17 13:59 05/05/17 21:30 Prednisone (predniSONE) 40 mg DAILY ORAL 05/02/17 09:00 05/30/17 08:59 05/05/17 09:02 Rifaximin (Xifaxan) 550 mg EVERY 12 HOURS ORAL 05/01/17 21:30 06/04/17 21:29 05/05/17 20:35 PERCY DALTON May 05, 2017 23:21
--- NOTE | 2017-05-05 23:49 | Cardiology Progress Note ---
Assessment/Plan Assessment/Plan 1. Sinus tachycardia, resolved, due to intravascular volume depletion due to hypo-albuminemia, albumin administration is only short term resolution. 2. Hypotension, on midodrine. 3. Mild pulmonary HTN 4. Chronic liver disease. Subjective Subjective Sinus rhythm at 69. No cardiac events. Objective Last 24 Hour Vital Signs Date Time Temp Pulse Resp B/P (MAP) Pulse Ox O2 Delivery O2 Flow Rate FiO2 05/05/17 20:50 98.2 74 18 112/64 96 Nasal Cannula 4.0 05/05/17 16:00 82 05/05/17 16:00 97.7 69 17 104/62 95 Nasal Cannula 3.0 05/05/17 12:00 96.8 87 19 117/75 94 Nasal Cannula 3.0 05/05/17 12:00 103 05/05/17 08:00 97.7 96 19 113/66 93 Nasal Cannula 3.0 05/05/17 08:00 97 05/05/17 04:14 97 Room Air 21 05/05/17 04:14 Room Air 21 05/05/17 04:00 97.1 84 18 129/72 96 Nasal Cannula 4.0 05/05/17 04:00 87 05/05/17 00:00 80 05/05/17 00:00 97.2 82 18 115/66 98 Nasal Cannula 4.0 Intake and Output 05/05/17 05/06/17 19:00 07:00 Intake Total 900 ml Balance 900 ml Intake Oral 900 ml # Bowel Movements 9 2D Echo: LVEF at 55%, RVSP 45 mmHg Laboratory Tests Test 05/05/17 04:25 White Blood Count 15.2 K/UL (4.8-10.8) H Red Blood Count 2.43 M/UL (4.70-6.10) L Hemoglobin 9.5 G/DL (14.2-18.0) L Hematocrit 28.8 % (42.0-52.0) L Mean Corpuscular Volume 119 FL (80-99) H Mean Corpuscular Hemoglobin 39.3 PG (27.0-31.0) H Mean Corpuscular Hemoglobin Concent 33.2 G/DL (32.0-36.0) Red Cell Distribution Width 18.6 % (11.6-14.8) H Platelet Count 127 K/UL (150-450) L Mean Platelet Volume 6.6 FL (6.5-10.1) Neutrophils (%) (Auto) % (45.0-75.0) Lymphocytes (%) (Auto) % (20.0-45.0) Monocytes (%) (Auto) % (1.0-10.0) Eosinophils (%) (Auto) % (0.0-3.0) Basophils (%) (Auto) % (0.0-2.0) Differential Total Cells Counted 100 Neutrophils % (Manual) 89 % (45-75) H Lymphocytes % (Manual) 4 % (20-45) L Monocytes % (Manual) 3 % (1-10) Eosinophils % (Manual) 0 % (0-3) Basophils % (Manual) 0 % (0-2) Band Neutrophils 4 % (0-8) Platelet Estimate Decreased L Platelet Morphology Normal Anisocytosis 1+ Sodium Level 138 MMOL/L (136-145) Potassium Level 3.5 MMOL/L (3.5-5.1) Chloride Level 103 MMOL/L (98-107) Carbon Dioxide Level 23 MMOL/L (21-32) Anion Gap 12 (5-15) Blood Urea Nitrogen 40 mg/dL (7-18) H Creatinine 1.2 MG/DL (0.55-1.30) Estimat Glomerular Filtration Rate > 60 mL/min (>60) Glucose Level 105 MG/DL (74-106) Calcium Level 8.2 MG/DL (8.5-10.1) L Total Bilirubin 20.3 MG/DL (0.2-1.0) H Direct Bilirubin 15.4 MG/DL (0.0-0.3) H Aspartate Amino Transf (AST/SGOT) 176 U/L (15-37) H Alanine Aminotransferase (ALT/SGPT) 50 U/L (12-78) Alkaline Phosphatase 372 U/L (46-116) H Total Protein 5.0 G/DL (6.4-8.2) L Albumin 1.7 G/DL (3.4-5.0) L Globulin 3.3 g/dL Albumin/Globulin Ratio 0.5 (1.0-2.7) L Objective HEENT: Head is normocephalic. PERRLA, EOMI. Eyes show scleral icterus. NECK: JVD is negative, no carotid bruit, carotid upstroke 2+ B/L LUNGS: Decreased breath sounds in the bases. CARDIAC: Rhythm is regular. Tachycardia, no murmurs, gallops or rubs. ABDOMEN: Distended, soft and nontender. There is a fluid wave noted. EXTREMITIES: No clubbing or cyanosis. There is 2+ edema. YAQUELIN HARDY May 05, 2017 23:49
[2017-05-06] VITALS (7 sets, daily range): BP systolic 111–129; BP diastolic 64–74
[2017-05-06 03:46] LABS: MEAN CORPUSCULAR HEMOGLOBIN 38.8 PG (27.0-31.0); MEAN CORPUSCULAR HGB CONC 33.1 G/DL (32.0-36.0); MEAN CORPUSCULAR VOLUME 118 FL (80-99); MEAN PLATELET VOLUME 6.2 FL (6.5-10.1); PLATELET COUNT 109 K/UL (150-450); RED BLOOD COUNT 2.33 M/UL (4.70-6.10); RED CELL DISTRIBUTION WIDTH 18.3 % (11.6-14.8); WHITE BLOOD COUNT 14.5 K/UL (4.8-10.8)
[2017-05-06 03:59] LABS: ALANINE AMINOTRANSFERASE 51 U/L (12-78); ALBUMIN/GLOBULIN RATIO 0.5 (1.0-2.7); ANION GAP 9 mmol/L (5-15); ASPARTATE AMINO TRANSFERASE 151 U/L (15-37); CALCIUM 7.7 MG/DL (8.5-10.1); CARBON DIOXIDE 26 MMOL/L (21-32); CHLORIDE 104 MMOL/L (98-107); CREATININE 1.1 MG/DL (0.55-1.30); GLOMERULAR FILTRATION RATE > 60 mL/min (>60); POTASSIUM 3.5 MMOL/L (3.5-5.1); SODIUM 139 MMOL/L (136-145); TOTAL PROTEIN 4.4 G/DL (6.4-8.2)
[2017-05-06 04:09] LABS: BILIRUBIN,DIRECT 15.9 MG/DL (0.0-0.3)
[2017-05-06] MEDS: Ampicillin/Sulbactam Sod 3 GM in NS 110 ML IVPB SCH ×4 (05:08→22:01)
[2017-05-06] MEDS: SandoSTATIN 100mcg/ml amp SUBQ SCH ×3 (05:09→22:01)
[2017-05-06 05:50] LABS: ANISOCYTOSIS 2+; BAND NEUTROPHILS % (MANUAL) 0 % (0-8); BASOPHILS % (MANUAL) 0 % (0-2); EOSINOPHILS % (MANUAL) 0 % (0-3); HYPOCHROMASIA 2+; LYMPHOCYTES % (MANUAL) 2 % (20-45); NEUTROPHILS % (MANUAL) 89 % (45-75); PLATELET ESTIMATE DECREASED; TOTAL CELLS COUNTED 100
[2017-05-06 05:51] LABS: MACROCYTES 2+; PLATELET MORPHOLOGY NORMAL
[2017-05-06] MEDS: Midodrine 10mg tab ORAL SCH ×3 (09:22→17:10)
[2017-05-06] MEDS: Lactulose 20gm/30ml UDC ORAL SCH (09:23)
--- NOTE | 2017-05-06 11:11 | General Progress Note ---
Assessment/Plan Status: stable - from renal stand, unchanged Assessment/Plan status: renal failure on admit , likely hepatorenal- Cr now normalized low Na due to anasarca Low K Jaundice Anemia high Lipase High lactic low alb Plan; K , Phos , Mag as needed Urine studies per GI- transfuse as needed monitor renal parameters- monitor lytes- poor prognosis- DC planning if no other GI plans scheduled Subjective ROS Limited/Unobtainable: No Constitutional: Reports: malaise, weakness Allergies: Coded Allergies: No Known Allergies (Unverified , 04/29/17) Objective Last 24 Hour Vital Signs Date Time Temp Pulse Resp B/P (MAP) Pulse Ox O2 Delivery O2 Flow Rate FiO2 05/06/17 08:05 97.3 87 20 111/68 98 Nasal Cannula 4.0 05/06/17 08:00 87 05/06/17 04:00 78 05/06/17 04:00 97.2 83 19 116/64 94 Room Air 05/06/17 00:00 80 05/06/17 00:00 97.4 80 20 116/69 92 Room Air 05/05/17 20:50 98.2 74 18 112/64 96 Nasal Cannula 4.0 05/05/17 20:00 74 05/05/17 19:25 97 Room Air 21 05/05/17 19:25 Room Air 21 05/05/17 16:00 82 05/05/17 16:00 97.7 69 17 104/62 95 Nasal Cannula 3.0 05/05/17 12:00 96.8 87 19 117/75 94 Nasal Cannula 3.0 05/05/17 12:00 103 Intake and Output 05/06/17 05/07/17 19:00 07:00 Intake Total 240 ml Output Total 200 ml Balance 40 ml Intake Oral 240 ml Output Urine Total 200 ml # Voids 1 Laboratory Tests 05/06/17 03:20: White Blood Count 14.5H, Red Blood Count 2.33L, Hemoglobin 9.1L, Hematocrit 27.4L, Mean Corpuscular Volume 118H, Mean Corpuscular Hemoglobin 38.8H, Mean Corpuscular Hemoglobin Concent 33.1, Red Cell Distribution Width 18.3H, Platelet Count 109L, Mean Platelet Volume 6.2L, Neutrophils (%) (Auto) , Lymphocytes (%) (Auto) , Monocytes (%) (Auto) , Eosinophils (%) (Auto) , Basophils (%) (Auto) , Differential Total Cells Counted 100, Neutrophils % ( Manual) 89H, Lymphocytes % (Manual) 2L, Monocytes % (Manual) 9, Eosinophils % ( Manual) 0, Basophils % (Manual) 0, Band Neutrophils 0, Platelet Estimate DecreasedL, Platelet Morphology Normal, Hypochromasia 2+, Anisocytosis 2+, Macrocytosis 2+, Sodium Level 139, Potassium Level 3.5, Chloride Level 104, Carbon Dioxide Level 26, Anion Gap 9, Blood Urea Nitrogen 34H, Creatinine 1.1, Estimat Glomerular Filtration Rate > 60, Glucose Level 135H, Calcium Level 7.7L , Total Bilirubin 19.3H, Direct Bilirubin 15.9H, Aspartate Amino Transf (AST/ SGOT) 151H, Alanine Aminotransferase (ALT/SGPT) 51, Alkaline Phosphatase 334H, Total Protein 4.4L, Albumin 1.5L, Globulin 2.9, Albumin/Globulin Ratio 0.5L Height (Feet): 5 Height (Inches): 8.00 Weight (Pounds): 205 General Appearance: no apparent distress, lethargic, confused - at times Cardiovascular: tachycardia Respiratory/Chest: decreased breath sounds Abdomen: soft Edema: 2+ Arm (L), 2+ Arm (R), 2+ Leg (L), 2+ Leg (R), 2+ Pedal (L), 2+ Pedal ( R), 2+ Generalized Objective MIKAELA Mcdowell May 06, 2017 11:11
--- NOTE | 2017-05-06 14:19 | GI Progress Note ---
Assessment/Plan Problems: (1) Jaundice of recent onset ICD Codes: R17 - Unspecified jaundice SNOMED: 16886511 (2) etoh withdrawal (3) depression (4) Pneumonia ICD Codes: J18.9 - Pneumonia, unspecified organism SNOMED: 797951090 (5) Acalculous cholecystitis ICD Codes: K81.9 - Cholecystitis, unspecified SNOMED: 25096521 (6) Ascites due to alcoholic cirrhosis ICD Codes: K70.31 - Alcoholic cirrhosis of liver with ascites SNOMED: 7861999058742283 (7) Alcohol abuse ICD Codes: F10.10 - Alcohol abuse, uncomplicated SNOMED: 11290741 Status: stable Status Narrative Discussed with Dr. Daly. Assessment/Plan s/p paracentesis yielding 3.1 liters of bright yellow fluid. okay for DC per GI standpoint elevated ammonia >> lactulose + Xifaxan low sodium diet midodrine 7.5mg>> increased to 10 mg octreotide 50mcg/hr gtt >> to SQ banana bag abx avoid diuretics for now prednisone 40mg x 28 days, then taper monitor LFTs mucomyst>> completed fu labs not transplant candidate given active drinking Subjective Subjective limited, fatigue Objective Last 24 Hour Vital Signs Date Time Temp Pulse Resp B/P (MAP) Pulse Ox O2 Delivery O2 Flow Rate FiO2 05/06/17 12:15 98.7 86 20 117/65 97 Nasal Cannula 4.0 05/06/17 12:00 98.7 86 20 117/65 97 Nasal Cannula 4.0 05/06/17 12:00 86 05/06/17 08:05 97.3 87 20 111/68 98 Nasal Cannula 4.0 05/06/17 08:00 87 05/06/17 04:00 78 05/06/17 04:00 97.2 83 19 116/64 94 Room Air 05/06/17 00:00 80 05/06/17 00:00 97.4 80 20 116/69 92 Room Air 05/05/17 20:50 98.2 74 18 112/64 96 Nasal Cannula 4.0 05/05/17 20:00 74 05/05/17 19:25 97 Room Air 21 05/05/17 19:25 Room Air 21 05/05/17 16:00 82 05/05/17 16:00 97.7 69 17 104/62 95 Nasal Cannula 3.0 Intake and Output 05/06/17 05/07/17 19:00 07:00 Intake Total 240 ml Output Total 200 ml Balance 40 ml Intake Oral 240 ml Output Urine Total 200 ml # Voids 1 # Bowel Movements 1 Laboratory Tests Test 05/06/17 03:20 White Blood Count 14.5 K/UL (4.8-10.8) H Red Blood Count 2.33 M/UL (4.70-6.10) L Hemoglobin 9.1 G/DL (14.2-18.0) L Hematocrit 27.4 % (42.0-52.0) L Mean Corpuscular Volume 118 FL (80-99) H Mean Corpuscular Hemoglobin 38.8 PG (27.0-31.0) H Mean Corpuscular Hemoglobin Concent 33.1 G/DL (32.0-36.0) Red Cell Distribution Width 18.3 % (11.6-14.8) H Platelet Count 109 K/UL (150-450) L Mean Platelet Volume 6.2 FL (6.5-10.1) L Neutrophils (%) (Auto) % (45.0-75.0) Lymphocytes (%) (Auto) % (20.0-45.0) Monocytes (%) (Auto) % (1.0-10.0) Eosinophils (%) (Auto) % (0.0-3.0) Basophils (%) (Auto) % (0.0-2.0) Differential Total Cells Counted 100 Neutrophils % (Manual) 89 % (45-75) H Lymphocytes % (Manual) 2 % (20-45) L Monocytes % (Manual) 9 % (1-10) Eosinophils % (Manual) 0 % (0-3) Basophils % (Manual) 0 % (0-2) Band Neutrophils 0 % (0-8) Platelet Estimate Decreased L Platelet Morphology Normal Hypochromasia 2+ Anisocytosis 2+ Macrocytosis 2+ Sodium Level 139 MMOL/L (136-145) Potassium Level 3.5 MMOL/L (3.5-5.1) Chloride Level 104 MMOL/L (98-107) Carbon Dioxide Level 26 MMOL/L (21-32) Anion Gap 9 mmol/L (5-15) Blood Urea Nitrogen 34 mg/dL (7-18) H Creatinine 1.1 MG/DL (0.55-1.30) Estimat Glomerular Filtration Rate > 60 mL/min (>60) Glucose Level 135 MG/DL (74-106) H Calcium Level 7.7 MG/DL (8.5-10.1) L Total Bilirubin 19.3 MG/DL (0.2-1.0) H Direct Bilirubin 15.9 MG/DL (0.0-0.3) H Aspartate Amino Transf (AST/SGOT) 151 U/L (15-37) H Alanine Aminotransferase (ALT/SGPT) 51 U/L (12-78) Alkaline Phosphatase 334 U/L (46-116) H Total Protein 4.4 G/DL (6.4-8.2) L Albumin 1.5 G/DL (3.4-5.0) L Globulin 2.9 g/dL Albumin/Globulin Ratio 0.5 (1.0-2.7) L Height (Feet): 5 Height (Inches): 8.00 Weight (Pounds): 205 General Appearance: no apparent distress, alert Cardiovascular: normal rate Respiratory/Chest: lungs clear Abdominal Exam: distended, ascites Extremities: non-tender Objective Jaundice Danay Grady N.P. May 06, 2017 14:19
[2017-05-06] MEDS ORDERED: LORazepam Inj 2mg/ml 1ml IV PRN (15:30)
--- NOTE | 2017-05-06 17:12 | General Progress Note ---
Assessment/Plan Assessment/Plan encephalopathy improving alcohol dependence -dc valium as he has liver failure. not given -ativan as it excrete through kidneys for w/d -inpatient drug rehab -consider prozac when he improves Subjective Allergies: Coded Allergies: No Known Allergies (Unverified , 04/29/17) Subjective the pt was told in regards to hepatic failure. Dr. Mcdowell explained that he was not responding to meds/ he is not a candidate for transplant due to alcohol dependence. Objective Last 24 Hour Vital Signs Date Time Temp Pulse Resp B/P (MAP) Pulse Ox O2 Delivery O2 Flow Rate FiO2 05/06/17 12:15 98.7 86 20 117/65 97 Nasal Cannula 4.0 05/06/17 12:00 98.7 86 20 117/65 97 Nasal Cannula 4.0 05/06/17 12:00 86 05/06/17 08:05 97.3 87 20 111/68 98 Nasal Cannula 4.0 05/06/17 08:00 87 05/06/17 04:00 78 05/06/17 04:00 97.2 83 19 116/64 94 Room Air 05/06/17 00:00 80 05/06/17 00:00 97.4 80 20 116/69 92 Room Air 05/05/17 20:50 98.2 74 18 112/64 96 Nasal Cannula 4.0 05/05/17 20:00 74 05/05/17 19:25 97 Room Air 21 05/05/17 19:25 Room Air 21 Intake and Output 05/06/17 05/07/17 19:00 07:00 Intake Total 480 ml Output Total 200 ml Balance 280 ml Intake Oral 480 ml Output Urine Total 200 ml # Voids 2 # Bowel Movements 2 Laboratory Tests 05/06/17 03:20: White Blood Count 14.5H, Red Blood Count 2.33L, Hemoglobin 9.1L, Hematocrit 27.4L, Mean Corpuscular Volume 118H, Mean Corpuscular Hemoglobin 38.8H, Mean Corpuscular Hemoglobin Concent 33.1, Red Cell Distribution Width 18.3H, Platelet Count 109L, Mean Platelet Volume 6.2L, Neutrophils (%) (Auto) , Lymphocytes (%) (Auto) , Monocytes (%) (Auto) , Eosinophils (%) (Auto) , Basophils (%) (Auto) , Differential Total Cells Counted 100, Neutrophils % ( Manual) 89H, Lymphocytes % (Manual) 2L, Monocytes % (Manual) 9, Eosinophils % ( Manual) 0, Basophils % (Manual) 0, Band Neutrophils 0, Platelet Estimate DecreasedL, Platelet Morphology Normal, Hypochromasia 2+, Anisocytosis 2+, Macrocytosis 2+, Sodium Level 139, Potassium Level 3.5, Chloride Level 104, Carbon Dioxide Level 26, Anion Gap 9, Blood Urea Nitrogen 34H, Creatinine 1.1, Estimat Glomerular Filtration Rate > 60, Glucose Level 135H, Calcium Level 7.7L , Total Bilirubin 19.3H, Direct Bilirubin 15.9H, Aspartate Amino Transf (AST/ SGOT) 151H, Alanine Aminotransferase (ALT/SGPT) 51, Alkaline Phosphatase 334H, Total Protein 4.4L, Albumin 1.5L, Globulin 2.9, Albumin/Globulin Ratio 0.5L Height (Feet): 5 Height (Inches): 8.00 Weight (Pounds): 205 Trino Kirby M.D. May 06, 2017 17:12
--- NOTE | 2017-05-06 18:10 | Pulmonology Progress Note ---
Assessment/Plan Assessment/Plan 1. Respiratory failure. 2. Liver failure. 3. Cirrhosis with ascites. 4. Alcoholism. 5. Pulmonary infiltrates and effusions, probably due to ascites and possible superimposed pneumonia. 6. UTI bipap qhs and prn distress titrate o2 nebs IV ABx fu need for repeat para and possible thoracentesis 3 liters ascites removed CXR to be reviewed Subjective Interval Events: None Constitutional: Reports: no symptoms HEENT: Repors: no symptoms Respiratory: Reports: no symptoms Cardiovascular: Reports: no symptoms Gastrointestinal/Abdominal: Reports: no symptoms Allergies: Coded Allergies: No Known Allergies (Unverified , 04/29/17) Objective Last 24 Hour Vital Signs Date Time Temp Pulse Resp B/P (MAP) Pulse Ox O2 Delivery O2 Flow Rate FiO2 05/06/17 12:15 98.7 86 20 117/65 97 Nasal Cannula 4.0 05/06/17 12:00 98.7 86 20 117/65 97 Nasal Cannula 4.0 05/06/17 12:00 86 05/06/17 08:05 97.3 87 20 111/68 98 Nasal Cannula 4.0 05/06/17 08:00 87 05/06/17 04:00 78 05/06/17 04:00 97.2 83 19 116/64 94 Room Air 05/06/17 00:00 80 05/06/17 00:00 97.4 80 20 116/69 92 Room Air 05/05/17 20:50 98.2 74 18 112/64 96 Nasal Cannula 4.0 05/05/17 20:00 74 05/05/17 19:25 97 Room Air 21 05/05/17 19:25 Room Air 21 Intake and Output 05/06/17 05/07/17 19:00 07:00 Intake Total 480 ml Output Total 200 ml Balance 280 ml Intake Oral 480 ml Output Urine Total 200 ml # Voids 2 # Bowel Movements 2 General Appearance: no acute distress HEENT: normocephalic Respiratory/Chest: chest wall non-tender, decreased breath sounds Cardiovascular: normal peripheral pulses, normal rate Laboratory Tests 05/06/17 03:20: White Blood Count 14.5H, Red Blood Count 2.33L, Hemoglobin 9.1L, Hematocrit 27.4L, Mean Corpuscular Volume 118H, Mean Corpuscular Hemoglobin 38.8H, Mean Corpuscular Hemoglobin Concent 33.1, Red Cell Distribution Width 18.3H, Platelet Count 109L, Mean Platelet Volume 6.2L, Neutrophils (%) (Auto) , Lymphocytes (%) (Auto) , Monocytes (%) (Auto) , Eosinophils (%) (Auto) , Basophils (%) (Auto) , Differential Total Cells Counted 100, Neutrophils % ( Manual) 89H, Lymphocytes % (Manual) 2L, Monocytes % (Manual) 9, Eosinophils % ( Manual) 0, Basophils % (Manual) 0, Band Neutrophils 0, Platelet Estimate DecreasedL, Platelet Morphology Normal, Hypochromasia 2+, Anisocytosis 2+, Macrocytosis 2+, Sodium Level 139, Potassium Level 3.5, Chloride Level 104, Carbon Dioxide Level 26, Anion Gap 9, Blood Urea Nitrogen 34H, Creatinine 1.1, Estimat Glomerular Filtration Rate > 60, Glucose Level 135H, Calcium Level 7.7L , Total Bilirubin 19.3H, Direct Bilirubin 15.9H, Aspartate Amino Transf (AST/ SGOT) 151H, Alanine Aminotransferase (ALT/SGPT) 51, Alkaline Phosphatase 334H, Total Protein 4.4L, Albumin 1.5L, Globulin 2.9, Albumin/Globulin Ratio 0.5L Current Medications Medications (Trade) Dose Ordered Sig/Leonard Route PRN Reason Start Time Stop Time Status Last Admin Dose Admin Ampicillin Sodium/ Sulbactam Sodium 3 gm/Sodium Chloride 110 ml @ 220 mls/hr Q8HR IVPB 05/06/17 15:30 05/07/17 15:29 05/06/17 15:46 Lactulose (Cephulac) 30 gm DAILY ORAL 05/07/17 09:00 05/31/17 13:29 Midodrine (Pro-Amatine) 10 mg THREE TIMES A DAY ORAL 05/06/17 18:00 06/02/17 12:59 05/06/17 17:10 Octreotide Acetate (SandoSTATIN) 100 mcg Q8HR SUBQ 05/06/17 22:00 06/04/17 13:59 Prednisone (predniSONE) 40 mg DAILY ORAL 05/07/17 09:00 05/30/17 08:59 Rifaximin (Xifaxan) 550 mg EVERY 12 HOURS ORAL 05/06/17 21:00 06/04/17 21:29 Jason Johnson MD May 06, 2017 18:10
--- NOTE | 2017-05-06 19:02 | General Progress Note ---
Assessment/Plan Assessment/Plan # Anemia of alcoholic myelosuppression - continue treatment, with banana bag and alcohol withdrawal protocol ---> anemia w/u has been reviewed. Continue to watch counts and transfuse as needed (if hgb below 7) --> improving --> s/p transfusion # Coagulopathy - 2/2 liver disease and underlying cirrhosis # Leukopenia is related to splenomegaly and splenic sequestration # Thrombocytopenia is due to cirrhosis, liver involvement and splenomegaly # Hyperbilibirubinemia - 2/2 etoh abuse, liver cirrhosis # ETOH withdrawal # PNA # Jaundice of recent onset # Ascites s/p multiple paracenteses Subjective Constitutional: Reports: no symptoms HEENT: Reports: no symptoms Cardiovascular: Reports: no symptoms Respiratory: Reports: no symptoms Gastrointestinal/Abdominal: Reports: no symptoms Genitourinary: Reports: no symptoms Neurologic/Psychiatric: Reports: no symptoms Endocrine: Reports: no symptoms Hematologic/Lymphatic: Reports: no symptoms Allergies: Coded Allergies: No Known Allergies (Unverified , 04/29/17) Subjective s/p paracentesis, HH stable Objective Last 24 Hour Vital Signs Date Time Temp Pulse Resp B/P (MAP) Pulse Ox O2 Delivery O2 Flow Rate FiO2 05/06/17 12:15 98.7 86 20 117/65 97 Nasal Cannula 4.0 05/06/17 12:00 98.7 86 20 117/65 97 Nasal Cannula 4.0 05/06/17 12:00 86 05/06/17 08:05 97.3 87 20 111/68 98 Nasal Cannula 4.0 05/06/17 08:00 87 05/06/17 04:00 78 05/06/17 04:00 97.2 83 19 116/64 94 Room Air 05/06/17 00:00 80 05/06/17 00:00 97.4 80 20 116/69 92 Room Air 05/05/17 20:50 98.2 74 18 112/64 96 Nasal Cannula 4.0 05/05/17 20:00 74 05/05/17 19:25 97 Room Air 21 05/05/17 19:25 Room Air 21 Intake and Output 05/06/17 05/07/17 19:00 07:00 Intake Total 780 ml Output Total 200 ml Balance 580 ml Intake Oral 780 ml Output Urine Total 200 ml # Voids 2 # Bowel Movements 4 Laboratory Tests 05/06/17 03:20: White Blood Count 14.5H, Red Blood Count 2.33L, Hemoglobin 9.1L, Hematocrit 27.4L, Mean Corpuscular Volume 118H, Mean Corpuscular Hemoglobin 38.8H, Mean Corpuscular Hemoglobin Concent 33.1, Red Cell Distribution Width 18.3H, Platelet Count 109L, Mean Platelet Volume 6.2L, Neutrophils (%) (Auto) , Lymphocytes (%) (Auto) , Monocytes (%) (Auto) , Eosinophils (%) (Auto) , Basophils (%) (Auto) , Differential Total Cells Counted 100, Neutrophils % ( Manual) 89H, Lymphocytes % (Manual) 2L, Monocytes % (Manual) 9, Eosinophils % ( Manual) 0, Basophils % (Manual) 0, Band Neutrophils 0, Platelet Estimate DecreasedL, Platelet Morphology Normal, Hypochromasia 2+, Anisocytosis 2+, Macrocytosis 2+, Sodium Level 139, Potassium Level 3.5, Chloride Level 104, Carbon Dioxide Level 26, Anion Gap 9, Blood Urea Nitrogen 34H, Creatinine 1.1, Estimat Glomerular Filtration Rate > 60, Glucose Level 135H, Calcium Level 7.7L , Total Bilirubin 19.3H, Direct Bilirubin 15.9H, Aspartate Amino Transf (AST/ SGOT) 151H, Alanine Aminotransferase (ALT/SGPT) 51, Alkaline Phosphatase 334H, Total Protein 4.4L, Albumin 1.5L, Globulin 2.9, Albumin/Globulin Ratio 0.5L Height (Feet): 5 Height (Inches): 8.00 Weight (Pounds): 205 General Appearance: no apparent distress EENT: PERRL/EOMI Neck: normal alignment Cardiovascular: normal peripheral pulses Respiratory/Chest: no accessory muscle use Abdomen: normal bowel sounds Edema: trace edema Joshua Hurley May 06, 2017 19:02
--- NOTE | 2017-05-06 20:25 | General Progress Note ---
Assessment/Plan Problem List: (1) Jaundice of recent onset ICD Codes: R17 - Unspecified jaundice SNOMED: 17476063 (2) Ascites due to alcoholic cirrhosis ICD Codes: K70.31 - Alcoholic cirrhosis of liver with ascites SNOMED: 8157232163143128 (3) etoh withdrawal (4) depression (5) Pneumonia ICD Codes: J18.9 - Pneumonia, unspecified organism SNOMED: 663776320 Status: progressing Assessment/Plan etoh cirrhosis ascites elev lft jaundice is persistent Subjective ROS Limited/Unobtainable: Yes Constitutional: Reports: no symptoms Allergies: Coded Allergies: No Known Allergies (Unverified , 04/29/17) Objective Last 24 Hour Vital Signs Date Time Temp Pulse Resp B/P (MAP) Pulse Ox O2 Delivery O2 Flow Rate FiO2 05/06/17 12:15 98.7 86 20 117/65 97 Nasal Cannula 4.0 05/06/17 12:00 98.7 86 20 117/65 97 Nasal Cannula 4.0 05/06/17 12:00 86 05/06/17 08:05 97.3 87 20 111/68 98 Nasal Cannula 4.0 05/06/17 08:00 87 05/06/17 04:00 78 05/06/17 04:00 97.2 83 19 116/64 94 Room Air 05/06/17 00:00 80 05/06/17 00:00 97.4 80 20 116/69 92 Room Air 05/05/17 20:50 98.2 74 18 112/64 96 Nasal Cannula 4.0 Intake and Output 05/06/17 05/07/17 19:00 07:00 Intake Total 780 ml Output Total 200 ml Balance 580 ml Intake Oral 780 ml Output Urine Total 200 ml # Voids 2 # Bowel Movements 4 Laboratory Tests 05/06/17 03:20: White Blood Count 14.5H, Red Blood Count 2.33L, Hemoglobin 9.1L, Hematocrit 27.4L, Mean Corpuscular Volume 118H, Mean Corpuscular Hemoglobin 38.8H, Mean Corpuscular Hemoglobin Concent 33.1, Red Cell Distribution Width 18.3H, Platelet Count 109L, Mean Platelet Volume 6.2L, Neutrophils (%) (Auto) , Lymphocytes (%) (Auto) , Monocytes (%) (Auto) , Eosinophils (%) (Auto) , Basophils (%) (Auto) , Differential Total Cells Counted 100, Neutrophils % ( Manual) 89H, Lymphocytes % (Manual) 2L, Monocytes % (Manual) 9, Eosinophils % ( Manual) 0, Basophils % (Manual) 0, Band Neutrophils 0, Platelet Estimate DecreasedL, Platelet Morphology Normal, Hypochromasia 2+, Anisocytosis 2+, Macrocytosis 2+, Sodium Level 139, Potassium Level 3.5, Chloride Level 104, Carbon Dioxide Level 26, Anion Gap 9, Blood Urea Nitrogen 34H, Creatinine 1.1, Estimat Glomerular Filtration Rate > 60, Glucose Level 135H, Calcium Level 7.7L , Total Bilirubin 19.3H, Direct Bilirubin 15.9H, Aspartate Amino Transf (AST/ SGOT) 151H, Alanine Aminotransferase (ALT/SGPT) 51, Alkaline Phosphatase 334H, Total Protein 4.4L, Albumin 1.5L, Globulin 2.9, Albumin/Globulin Ratio 0.5L Height (Feet): 5 Height (Inches): 8.00 Weight (Pounds): 205 Abdomen: non tender Sunday Choi MD May 06, 2017 20:25
[2017-05-07] VITALS: BP 122/65
[2017-05-07 04:00] VITALS: BP 120/68
[2017-05-07] MEDS: Ampicillin/Sulbactam Sod 3 GM in NS 110 ML IVPB SCH ×2 (05:55→14:00)
[2017-05-07] MEDS: SandoSTATIN 100mcg/ml amp SUBQ SCH ×2 (06:01→14:00)
[2017-05-07 08:05] VITALS: BP 126/72
[2017-05-07] MEDS: Midodrine 10mg tab ORAL SCH ×2 (09:00→13:00)
[2017-05-07] MEDS: Lactulose 20gm/30ml UDC ORAL SCH (09:32)
[2017-05-07 09:48] LABS: MEAN CORPUSCULAR HEMOGLOBIN 40.2 PG (27.0-31.0); MEAN CORPUSCULAR HGB CONC 33.8 G/DL (32.0-36.0); MEAN CORPUSCULAR VOLUME 119 FL (80-99); MEAN PLATELET VOLUME 7.1 FL (6.5-10.1); PLATELET COUNT 105 K/UL (150-450); RED BLOOD COUNT 2.43 M/UL (4.70-6.10); RED CELL DISTRIBUTION WIDTH 17.1 % (11.6-14.8); WHITE BLOOD COUNT 14.4 K/UL (4.8-10.8)
--- NOTE | 2017-05-07 09:57 | General Progress Note ---
Progress Note Progress Note Surgery: no acute events. working with PT. comfortable. feeling better. no n/v/f/c. tolerating diet. good output still jaundice. exam stable. afebrile, HD stable, VSS, labs slowly improving. labs today pending. acute alcoholic hepatitis -no acute surgical intervention -will follow peripherally Alverto Latham May 07, 2017 09:57
[2017-05-07 10:50] LABS: ALANINE AMINOTRANSFERASE 63 U/L (12-78); ALBUMIN/GLOBULIN RATIO 0.4 (1.0-2.7); ASPARTATE AMINO TRANSFERASE 165 U/L (15-37); CALCIUM 8.1 MG/DL (8.5-10.1); CHLORIDE 102 MMOL/L (98-107); CREATININE 1.2 MG/DL (0.55-1.30); GLOMERULAR FILTRATION RATE > 60 mL/min (>60); POTASSIUM 3.4 MMOL/L (3.5-5.1); SODIUM 137 MMOL/L (136-145); TOTAL PROTEIN 4.9 G/DL (6.4-8.2)
[2017-05-07 10:55] LABS: BILIRUBIN,DIRECT 18.3 MG/DL (0.0-0.3)
[2017-05-07 11:06] LABS: CARBON DIOXIDE 21 MMOL/L (21-32)
[2017-05-07 11:49] VITALS: BP 121/70
[2017-05-07 12:06] LABS: ANISOCYTOSIS 1+; BAND NEUTROPHILS % (MANUAL) 2 % (0-8); BASOPHILS % (MANUAL) 0 % (0-2); EOSINOPHILS % (MANUAL) 0 % (0-3); LYMPHOCYTES % (MANUAL) 3 % (20-45); NEUTROPHILS % (MANUAL) 90 % (45-75); PLATELET ESTIMATE DECREASED; PLATELET MORPHOLOGY NORMAL; TOTAL CELLS COUNTED 100
[2017-05-07 12:07] LABS: MACROCYTES 1+
--- NOTE | 2017-05-07 12:30 | General Progress Note ---
Assessment/Plan Problem List: (1) Jaundice of recent onset ICD Codes: R17 - Unspecified jaundice SNOMED: 34622327 (2) Ascites due to alcoholic cirrhosis ICD Codes: K70.31 - Alcoholic cirrhosis of liver with ascites SNOMED: 2831552323298190 (3) etoh withdrawal (4) depression (5) Pneumonia ICD Codes: J18.9 - Pneumonia, unspecified organism SNOMED: 672331012 Status: progressing Assessment/Plan etoh cirrhosis ascites elev lft jaundice is persistent per pt/ot he is not safe to go home and needs snf for pt/ot strengthenig and transfer i made mother surragte decsion maker give son encephalopathy from cirrosis and lack of capacity for son to make good judgement/ Subjective ROS Limited/Unobtainable: Yes Constitutional: Reports: no symptoms Allergies: Coded Allergies: No Known Allergies (Unverified , 04/29/17) Objective Last 24 Hour Vital Signs Date Time Temp Pulse Resp B/P (MAP) Pulse Ox O2 Delivery O2 Flow Rate FiO2 05/07/17 11:49 97.2 68 21 121/70 97 Nasal Cannula 2.0 05/07/17 08:05 97.9 94 21 126/72 95 Nasal Cannula 2.0 05/07/17 04:00 98.3 86 18 120/68 96 Nasal Cannula 2.0 05/07/17 00:00 98.3 82 20 122/65 96 Room Air 05/06/17 20:00 98.1 82 20 122/67 97 Nasal Cannula 2.0 Intake and Output 05/07/17 05/08/17 19:00 07:00 Intake Total 240 ml Balance 240 ml Intake Oral 240 ml Laboratory Tests 05/07/17 09:30: White Blood Count 14.4H, Red Blood Count 2.43L, Hemoglobin 9.7L, Hematocrit 28.8L, Mean Corpuscular Volume 119H, Mean Corpuscular Hemoglobin 40.2H, Mean Corpuscular Hemoglobin Concent 33.8, Red Cell Distribution Width 17.1H, Platelet Count 105L, Mean Platelet Volume 7.1, Neutrophils (%) (Auto) , Lymphocytes (%) (Auto) , Monocytes (%) (Auto) , Eosinophils (%) (Auto) , Basophils (%) (Auto) , Differential Total Cells Counted 100, Neutrophils % ( Manual) 90H, Lymphocytes % (Manual) 3L, Monocytes % (Manual) 5, Eosinophils % ( Manual) 0, Basophils % (Manual) 0, Band Neutrophils 2, Platelet Estimate DecreasedL, Platelet Morphology Normal, Anisocytosis 1+, Macrocytosis 1+, Sodium Level 137, Potassium Level 3.4L, Chloride Level 102, Carbon Dioxide Level 21, Blood Urea Nitrogen 29H, Creatinine 1.2, Estimat Glomerular Filtration Rate > 60, Glucose Level 153H, Calcium Level 8.1L, Total Bilirubin 21.3H, Direct Bilirubin 18.3H, Aspartate Amino Transf (AST/SGOT) 165H, Alanine Aminotransferase (ALT/SGPT) 63, Alkaline Phosphatase 402H, Total Protein 4.9L, Albumin 1.5L, Globulin 3.4, Albumin/Globulin Ratio 0.4L Height (Feet): 5 Height (Inches): 8.00 Weight (Pounds): 205 EENT: PERRL/EOMI Neck: supple Cardiovascular: normal rate Respiratory/Chest: lungs clear Sunday Choi MD May 07, 2017 12:30
--- NOTE | 2017-05-07 12:59 | General Progress Note ---
Assessment/Plan Status: unchanged Assessment/Plan status: renal failure on admit , likely hepatorenal- Cr now normalized low Na due to anasarca Low K Jaundice Anemia high Lipase High lactic low alb Plan; K , Phos , Mag as needed Urine studies per GI- transfuse as needed monitor renal parameters- monitor lytes- poor prognosis- DC planning if no other GI plans scheduled Subjective ROS Limited/Unobtainable: No Constitutional: Reports: malaise, weakness Allergies: Coded Allergies: No Known Allergies (Unverified , 04/29/17) Objective Last 24 Hour Vital Signs Date Time Temp Pulse Resp B/P (MAP) Pulse Ox O2 Delivery O2 Flow Rate FiO2 05/07/17 11:49 97.2 68 21 121/70 97 Nasal Cannula 2.0 05/07/17 08:05 97.9 94 21 126/72 95 Nasal Cannula 2.0 05/07/17 04:00 98.3 86 18 120/68 96 Nasal Cannula 2.0 05/07/17 00:00 98.3 82 20 122/65 96 Room Air 05/06/17 20:00 98.1 82 20 122/67 97 Nasal Cannula 2.0 Intake and Output 05/07/17 05/08/17 19:00 07:00 Intake Total 240 ml Balance 240 ml Intake Oral 240 ml Laboratory Tests 05/07/17 09:30: White Blood Count 14.4H, Red Blood Count 2.43L, Hemoglobin 9.7L, Hematocrit 28.8L, Mean Corpuscular Volume 119H, Mean Corpuscular Hemoglobin 40.2H, Mean Corpuscular Hemoglobin Concent 33.8, Red Cell Distribution Width 17.1H, Platelet Count 105L, Mean Platelet Volume 7.1, Neutrophils (%) (Auto) , Lymphocytes (%) (Auto) , Monocytes (%) (Auto) , Eosinophils (%) (Auto) , Basophils (%) (Auto) , Differential Total Cells Counted 100, Neutrophils % ( Manual) 90H, Lymphocytes % (Manual) 3L, Monocytes % (Manual) 5, Eosinophils % ( Manual) 0, Basophils % (Manual) 0, Band Neutrophils 2, Platelet Estimate DecreasedL, Platelet Morphology Normal, Anisocytosis 1+, Macrocytosis 1+, Sodium Level 137, Potassium Level 3.4L, Chloride Level 102, Carbon Dioxide Level 21, Blood Urea Nitrogen 29H, Creatinine 1.2, Estimat Glomerular Filtration Rate > 60, Glucose Level 153H, Calcium Level 8.1L, Total Bilirubin 21.3H, Direct Bilirubin 18.3H, Aspartate Amino Transf (AST/SGOT) 165H, Alanine Aminotransferase (ALT/SGPT) 63, Alkaline Phosphatase 402H, Total Protein 4.9L, Albumin 1.5L, Globulin 3.4, Albumin/Globulin Ratio 0.4L Height (Feet): 5 Height (Inches): 8.00 Weight (Pounds): 205 General Appearance: lethargic, other - Jaundiced Cardiovascular: tachycardia Respiratory/Chest: decreased breath sounds Abdomen: distended Objective anasarca MIKAELA AYOUB May 07, 2017 12:59
[2017-05-07] MEDS: KCl 10% 40mEq/30ml liquid NG SCH (13:30)
--- NOTE | 2017-05-07 14:03 | Pulmonology Progress Note ---
Assessment/Plan Assessment/Plan 1. Respiratory failure. 2. Liver failure. 3. Cirrhosis with ascites. 4. Alcoholism. 5. Pulmonary infiltrates and effusions, probably due to ascites 6. UTI 7. peripheral edema titrate o2 nebs IV ABx and clearance per ID ordered thoracentesis - patient aware and agreeable 3 liters ascites removed needs definitive procedure for recurring fluid defer to GI impression, plan, and exam edited and reviewed in detail care discussed with RN Subjective Allergies: Coded Allergies: No Known Allergies (Unverified , 04/29/17) Subjective coverage for Tirmizi no sob on oxygen wants to go home Objective Last 24 Hour Vital Signs Date Time Temp Pulse Resp B/P (MAP) Pulse Ox O2 Delivery O2 Flow Rate FiO2 05/07/17 11:49 97.2 68 21 121/70 97 Nasal Cannula 2.0 05/07/17 08:05 97.9 94 21 126/72 95 Nasal Cannula 2.0 05/07/17 04:00 98.3 86 18 120/68 96 Nasal Cannula 2.0 05/07/17 00:00 98.3 82 20 122/65 96 Room Air 05/06/17 20:00 98.1 82 20 122/67 97 Nasal Cannula 2.0 Intake and Output 05/07/17 05/08/17 19:00 07:00 Intake Total 240 ml Balance 240 ml Intake Oral 240 ml Objective WDWN NAD reduced breath sounds bilaterally without rhonchi or wheeze [id number] without MRG NABS nontender no HSM- some distention no CC 3+ edema nonfocal Laboratory Tests 05/07/17 09:30: White Blood Count 14.4H, Red Blood Count 2.43L, Hemoglobin 9.7L, Hematocrit 28.8L, Mean Corpuscular Volume 119H, Mean Corpuscular Hemoglobin 40.2H, Mean Corpuscular Hemoglobin Concent 33.8, Red Cell Distribution Width 17.1H, Platelet Count 105L, Mean Platelet Volume 7.1, Neutrophils (%) (Auto) , Lymphocytes (%) (Auto) , Monocytes (%) (Auto) , Eosinophils (%) (Auto) , Basophils (%) (Auto) , Differential Total Cells Counted 100, Neutrophils % ( Manual) 90H, Lymphocytes % (Manual) 3L, Monocytes % (Manual) 5, Eosinophils % ( Manual) 0, Basophils % (Manual) 0, Band Neutrophils 2, Platelet Estimate DecreasedL, Platelet Morphology Normal, Anisocytosis 1+, Macrocytosis 1+, Sodium Level 137, Potassium Level 3.4L, Chloride Level 102, Carbon Dioxide Level 21, Blood Urea Nitrogen 29H, Creatinine 1.2, Estimat Glomerular Filtration Rate > 60, Glucose Level 153H, Calcium Level 8.1L, Total Bilirubin 21.3H, Direct Bilirubin 18.3H, Aspartate Amino Transf (AST/SGOT) 165H, Alanine Aminotransferase (ALT/SGPT) 63, Alkaline Phosphatase 402H, Total Protein 4.9L, Albumin 1.5L, Globulin 3.4, Albumin/Globulin Ratio 0.4L Current Medications Medications (Trade) Dose Ordered Sig/Leonard Route PRN Reason Start Time Stop Time Status Last Admin Dose Admin Ampicillin Sodium/ Sulbactam Sodium 3 gm/Sodium Chloride 110 ml @ 220 mls/hr Q8HR IVPB 05/06/17 15:30 05/07/17 15:29 05/07/17 05:55 Lactulose (Cephulac) 30 gm DAILY ORAL 05/07/17 09:00 05/31/17 13:29 05/07/17 09:32 Midodrine (Pro-Amatine) 10 mg THREE TIMES A DAY ORAL 05/06/17 18:00 06/02/17 12:59 05/06/17 17:10 Mirtazapine (Remeron) 15 mg BEDTIME ORAL 05/07/17 21:00 06/06/17 20:59 Octreotide Acetate (SandoSTATIN) 100 mcg Q8HR SUBQ 05/06/17 22:00 06/04/17 13:59 05/07/17 06:01 Potassium Chloride (KCl 10% 40mEq Oral solution) 40 meq DAILY NG 05/07/17 13:15 06/06/17 13:14 05/07/17 13:30 Prednisone (predniSONE) 40 mg DAILY ORAL 05/07/17 09:00 05/30/17 08:59 05/07/17 09:32 Rifaximin (Xifaxan) 550 mg EVERY 12 HOURS ORAL 05/06/17 21:00 06/04/17 21:29 05/07/17 09:33 EFREM PAREDES May 07, 2017 14:03
[2017-05-07] MEDS ORDERED: Tubing IV Secondary IV ONE (15:51)
[2017-05-07 16:00] VITALS: BP 120/69
--- NOTE | 2017-05-07 16:04 | Diagnostic Imaging Report ---
Indication: Pleural effusions Technique: Grayscale images of the chest bilaterally in anticipation of thoracentesis Comparison: None Findings: Only minimal pleural fluid is demonstrated bilaterally Impression: Minimal bilateral pleural fluid, insufficient to justify therapeutic thoracentesis. No procedure performed. Apparent right hemidiaphragmatic elevation on recent chest radiograph presumably therefore due to pulmonary parenchymal volume loss rather than pleural fluid Dr. Tejeda previously notified
--- NOTE | 2017-05-07 16:37 | GI Progress Note ---
Assessment/Plan Problems: (1) Jaundice of recent onset ICD Codes: R17 - Unspecified jaundice SNOMED: 32439224 (2) etoh withdrawal (3) depression (4) Pneumonia ICD Codes: J18.9 - Pneumonia, unspecified organism SNOMED: 569821478 (5) Acalculous cholecystitis ICD Codes: K81.9 - Cholecystitis, unspecified SNOMED: 07589311 (6) Ascites due to alcoholic cirrhosis ICD Codes: K70.31 - Alcoholic cirrhosis of liver with ascites SNOMED: 5552865583155348 (7) Alcohol abuse ICD Codes: F10.10 - Alcohol abuse, uncomplicated SNOMED: 82961908 Status: stable Status Narrative Discussed with Dr. Daly. Assessment/Plan s/p paracentesis yielding 3.1 liters of bright yellow fluid. okay for DC per GI standpoint patient will be followed weekly by Dr. Daly in clinic elevated ammonia >> lactulose + Xifaxan low sodium diet dc midodrine and octreotide given return of kidney function prednisone 40mg x 28 days, then taper monitor LFTs not transplant candidate given active drinking Subjective Gastrointestinal/Abdominal: Reports: no symptoms Subjective limited, fatigue Objective Last 24 Hour Vital Signs Date Time Temp Pulse Resp B/P (MAP) Pulse Ox O2 Delivery O2 Flow Rate FiO2 05/07/17 11:49 97.2 68 21 121/70 97 Nasal Cannula 2.0 05/07/17 08:05 97.9 94 21 126/72 95 Nasal Cannula 2.0 05/07/17 04:00 98.3 86 18 120/68 96 Nasal Cannula 2.0 05/07/17 00:00 98.3 82 20 122/65 96 Room Air 05/06/17 20:00 98.1 82 20 122/67 97 Nasal Cannula 2.0 Intake and Output 05/07/17 05/08/17 19:00 07:00 Intake Total 480 ml Balance 480 ml Intake Oral 480 ml # Bowel Movements 4 Laboratory Tests Test 05/07/17 09:30 White Blood Count 14.4 K/UL (4.8-10.8) H Red Blood Count 2.43 M/UL (4.70-6.10) L Hemoglobin 9.7 G/DL (14.2-18.0) L Hematocrit 28.8 % (42.0-52.0) L Mean Corpuscular Volume 119 FL (80-99) H Mean Corpuscular Hemoglobin 40.2 PG (27.0-31.0) H Mean Corpuscular Hemoglobin Concent 33.8 G/DL (32.0-36.0) Red Cell Distribution Width 17.1 % (11.6-14.8) H Platelet Count 105 K/UL (150-450) L Mean Platelet Volume 7.1 FL (6.5-10.1) Neutrophils (%) (Auto) % (45.0-75.0) Lymphocytes (%) (Auto) % (20.0-45.0) Monocytes (%) (Auto) % (1.0-10.0) Eosinophils (%) (Auto) % (0.0-3.0) Basophils (%) (Auto) % (0.0-2.0) Differential Total Cells Counted 100 Neutrophils % (Manual) 90 % (45-75) H Lymphocytes % (Manual) 3 % (20-45) L Monocytes % (Manual) 5 % (1-10) Eosinophils % (Manual) 0 % (0-3) Basophils % (Manual) 0 % (0-2) Band Neutrophils 2 % (0-8) Platelet Estimate Decreased L Platelet Morphology Normal Anisocytosis 1+ Macrocytosis 1+ Sodium Level 137 MMOL/L (136-145) Potassium Level 3.4 MMOL/L (3.5-5.1) L Chloride Level 102 MMOL/L (98-107) Carbon Dioxide Level 21 MMOL/L (21-32) Blood Urea Nitrogen 29 mg/dL (7-18) H Creatinine 1.2 MG/DL (0.55-1.30) Estimat Glomerular Filtration Rate > 60 mL/min (>60) Glucose Level 153 MG/DL (74-106) H Calcium Level 8.1 MG/DL (8.5-10.1) L Total Bilirubin 21.3 MG/DL (0.2-1.0) H Direct Bilirubin 18.3 MG/DL (0.0-0.3) H Aspartate Amino Transf (AST/SGOT) 165 U/L (15-37) H Alanine Aminotransferase (ALT/SGPT) 63 U/L (12-78) Alkaline Phosphatase 402 U/L (46-116) H Total Protein 4.9 G/DL (6.4-8.2) L Albumin 1.5 G/DL (3.4-5.0) L Globulin 3.4 g/dL Albumin/Globulin Ratio 0.4 (1.0-2.7) L Height (Feet): 5 Height (Inches): 8.00 Weight (Pounds): 205 General Appearance: WD/WN, no apparent distress, alert Cardiovascular: normal rate Respiratory/Chest: normal breath sounds, no respiratory distress Abdominal Exam: normal bowel sounds, non tender, soft, distended, ascites Extremities: normal range of motion, non-tender Objective Jaundice Danay Grady N.P. May 07, 2017 16:37
--- NOTE | 2017-05-07 16:54 | Infectious Diseases Prog Note ---
Assessment/Plan Problems: (1) Leukocytosis Assessment & Plan: Sepsis? Reactive due to steroids. Stable. Cultures NGTD. Finish a course of Unasyn for acalculous cholecystitis versus pneumonia versus UTI. Follow-up WBC. Overall clinically improved. (2) Liver cirrhosis, alcoholic (3) Ascites due to alcoholic cirrhosis (4) Jaundice of recent onset (5) Alcohol abuse Subjective Allergies: Coded Allergies: No Known Allergies (Unverified , 04/29/17) Objective Vital Signs Last 24 Hour Vital Signs Date Time Temp Pulse Resp B/P (MAP) Pulse Ox O2 Delivery O2 Flow Rate FiO2 05/07/17 11:49 97.2 68 21 121/70 97 Nasal Cannula 2.0 05/07/17 08:05 97.9 94 21 126/72 95 Nasal Cannula 2.0 05/07/17 04:00 98.3 86 18 120/68 96 Nasal Cannula 2.0 05/07/17 00:00 98.3 82 20 122/65 96 Room Air 05/06/17 20:00 98.1 82 20 122/67 97 Nasal Cannula 2.0 Height (Feet): 5 Height (Inches): 8.00 Weight (Pounds): 205 Laboratory Tests Test 05/07/17 09:30 White Blood Count 14.4 K/UL (4.8-10.8) H Red Blood Count 2.43 M/UL (4.70-6.10) L Hemoglobin 9.7 G/DL (14.2-18.0) L Hematocrit 28.8 % (42.0-52.0) L Mean Corpuscular Volume 119 FL (80-99) H Mean Corpuscular Hemoglobin 40.2 PG (27.0-31.0) H Mean Corpuscular Hemoglobin Concent 33.8 G/DL (32.0-36.0) Red Cell Distribution Width 17.1 % (11.6-14.8) H Platelet Count 105 K/UL (150-450) L Mean Platelet Volume 7.1 FL (6.5-10.1) Neutrophils (%) (Auto) % (45.0-75.0) Lymphocytes (%) (Auto) % (20.0-45.0) Monocytes (%) (Auto) % (1.0-10.0) Eosinophils (%) (Auto) % (0.0-3.0) Basophils (%) (Auto) % (0.0-2.0) Differential Total Cells Counted 100 Neutrophils % (Manual) 90 % (45-75) H Lymphocytes % (Manual) 3 % (20-45) L Monocytes % (Manual) 5 % (1-10) Eosinophils % (Manual) 0 % (0-3) Basophils % (Manual) 0 % (0-2) Band Neutrophils 2 % (0-8) Platelet Estimate Decreased L Platelet Morphology Normal Anisocytosis 1+ Macrocytosis 1+ Sodium Level 137 MMOL/L (136-145) Potassium Level 3.4 MMOL/L (3.5-5.1) L Chloride Level 102 MMOL/L (98-107) Carbon Dioxide Level 21 MMOL/L (21-32) Blood Urea Nitrogen 29 mg/dL (7-18) H Creatinine 1.2 MG/DL (0.55-1.30) Estimat Glomerular Filtration Rate > 60 mL/min (>60) Glucose Level 153 MG/DL (74-106) H Calcium Level 8.1 MG/DL (8.5-10.1) L Total Bilirubin 21.3 MG/DL (0.2-1.0) H Direct Bilirubin 18.3 MG/DL (0.0-0.3) H Aspartate Amino Transf (AST/SGOT) 165 U/L (15-37) H Alanine Aminotransferase (ALT/SGPT) 63 U/L (12-78) Alkaline Phosphatase 402 U/L (46-116) H Total Protein 4.9 G/DL (6.4-8.2) L Albumin 1.5 G/DL (3.4-5.0) L Globulin 3.4 g/dL Albumin/Globulin Ratio 0.4 (1.0-2.7) L Current Medications Medications (Trade) Dose Ordered Sig/Leonard Route PRN Reason Start Time Stop Time Status Last Admin Dose Admin Lactulose (Cephulac) 30 gm DAILY ORAL 05/07/17 09:00 05/31/17 13:29 05/07/17 09:32 Midodrine (Pro-Amatine) 10 mg THREE TIMES A DAY ORAL 05/06/17 18:00 06/02/17 12:59 05/06/17 17:10 Mirtazapine (Remeron) 15 mg BEDTIME ORAL 05/07/17 21:00 06/06/17 20:59 Octreotide Acetate (SandoSTATIN) 100 mcg Q8HR SUBQ 05/06/17 22:00 06/04/17 13:59 05/07/17 06:01 Potassium Chloride (KCl 10% 40mEq Oral solution) 40 meq DAILY NG 05/07/17 13:15 06/06/17 13:14 05/07/17 13:30 Prednisone (predniSONE) 40 mg DAILY ORAL 05/07/17 09:00 05/30/17 08:59 05/07/17 09:32 Rifaximin (Xifaxan) 550 mg EVERY 12 HOURS ORAL 05/06/17 21:00 06/04/17 21:29 05/07/17 09:33 PERCY DALTON May 07, 2017 16:54
[2017-05-07] MEDS ORDERED: LORazepam Inj 2mg/ml 1ml IV PRN (17:00)
[2017-05-07 20:00] VITALS: BP 133/67
--- NOTE | 2017-05-07 20:59 | General Progress Note ---
Assessment/Plan Assessment/Plan Assessment and Plan # Anemia of alcoholic myelosuppression ---> anemia w/u has been reviewed. Continue to watch counts and transfuse as needed (if hgb below 7) --> improving --> s/p transfusion # Coagulopathy - 2/2 liver disease and underlying cirrhosis # Leukopenia is related to splenomegaly and splenic sequestration # Thrombocytopenia is due to cirrhosis, liver involvement and splenomegaly # Hyperbilibirubinemia - 2/2 etoh abuse, liver cirrhosis # ETOH withdrawal # PNA # Jaundice of recent onset # Ascites s/p multiple paracenteses Subjective Constitutional: Reports: no symptoms HEENT: Reports: no symptoms Cardiovascular: Reports: no symptoms Respiratory: Reports: no symptoms Gastrointestinal/Abdominal: Reports: no symptoms Genitourinary: Reports: no symptoms Neurologic/Psychiatric: Reports: no symptoms Endocrine: Reports: no symptoms Hematologic/Lymphatic: Reports: no symptoms Allergies: Coded Allergies: No Known Allergies (Unverified , 04/29/17) Subjective NAD Objective Last 24 Hour Vital Signs Date Time Temp Pulse Resp B/P (MAP) Pulse Ox O2 Delivery O2 Flow Rate FiO2 05/07/17 16:00 97.2 89 17 120/69 93 Nasal Cannula 4.0 05/07/17 11:49 97.2 68 21 121/70 97 Nasal Cannula 2.0 05/07/17 08:05 97.9 94 21 126/72 95 Nasal Cannula 2.0 05/07/17 04:00 98.3 86 18 120/68 96 Nasal Cannula 2.0 05/07/17 00:00 98.3 82 20 122/65 96 Room Air Intake and Output 05/07/17 05/08/17 19:00 07:00 Intake Total 780 ml Balance 780 ml Intake Oral 780 ml # Voids 1 # Bowel Movements 6 Laboratory Tests 05/07/17 09:30: White Blood Count 14.4H, Red Blood Count 2.43L, Hemoglobin 9.7L, Hematocrit 28.8L, Mean Corpuscular Volume 119H, Mean Corpuscular Hemoglobin 40.2H, Mean Corpuscular Hemoglobin Concent 33.8, Red Cell Distribution Width 17.1H, Platelet Count 105L, Mean Platelet Volume 7.1, Neutrophils (%) (Auto) , Lymphocytes (%) (Auto) , Monocytes (%) (Auto) , Eosinophils (%) (Auto) , Basophils (%) (Auto) , Differential Total Cells Counted 100, Neutrophils % ( Manual) 90H, Lymphocytes % (Manual) 3L, Monocytes % (Manual) 5, Eosinophils % ( Manual) 0, Basophils % (Manual) 0, Band Neutrophils 2, Platelet Estimate DecreasedL, Platelet Morphology Normal, Anisocytosis 1+, Macrocytosis 1+, Sodium Level 137, Potassium Level 3.4L, Chloride Level 102, Carbon Dioxide Level 21, Blood Urea Nitrogen 29H, Creatinine 1.2, Estimat Glomerular Filtration Rate > 60, Glucose Level 153H, Calcium Level 8.1L, Total Bilirubin 21.3H, Direct Bilirubin 18.3H, Aspartate Amino Transf (AST/SGOT) 165H, Alanine Aminotransferase (ALT/SGPT) 63, Alkaline Phosphatase 402H, Total Protein 4.9L, Albumin 1.5L, Globulin 3.4, Albumin/Globulin Ratio 0.4L Height (Feet): 5 Height (Inches): 8.00 Weight (Pounds): 205 General Appearance: no apparent distress EENT: PERRL/EOMI Neck: normal alignment Cardiovascular: normal rate Neurologic: reading specialist II-XII grossly normal Skin: normal pigmentation Joshua Hurley May 07, 2017 20:59
--- NOTE | 2017-05-07 23:01 | General Progress Note ---
Assessment/Plan Status: unchanged Assessment/Plan encephalopathy improving alcohol dependence -cont ativan a remeron 15mg qhs Subjective Constitutional: Reports: malaise, weakness Neurologic/Psychiatric: Reports: anxiety, depressed, emotional problems Allergies: Coded Allergies: No Known Allergies (Unverified , 04/29/17) Subjective the pt was explained by myself and [facility] [employer] head that he was terminal and he clarified several questions. the mother was next to bed. he is not a candidate for transplant due to alcohol dependence. Objective Last 24 Hour Vital Signs Date Time Temp Pulse Resp B/P (MAP) Pulse Ox O2 Delivery O2 Flow Rate FiO2 05/07/17 20:00 98.1 81 18 133/67 91 Nasal Cannula 3.0 05/07/17 16:00 97.2 89 17 120/69 93 Nasal Cannula 4.0 05/07/17 11:49 97.2 68 21 121/70 97 Nasal Cannula 2.0 05/07/17 08:05 97.9 94 21 126/72 95 Nasal Cannula 2.0 05/07/17 04:00 98.3 86 18 120/68 96 Nasal Cannula 2.0 05/07/17 00:00 98.3 82 20 122/65 96 Room Air Intake and Output 05/07/17 05/08/17 19:00 07:00 Intake Total 780 ml Balance 780 ml Intake Oral 780 ml # Voids 1 # Bowel Movements 6 Laboratory Tests 05/07/17 09:30: White Blood Count 14.4H, Red Blood Count 2.43L, Hemoglobin 9.7L, Hematocrit 28.8L, Mean Corpuscular Volume 119H, Mean Corpuscular Hemoglobin 40.2H, Mean Corpuscular Hemoglobin Concent 33.8, Red Cell Distribution Width 17.1H, Platelet Count 105L, Mean Platelet Volume 7.1, Neutrophils (%) (Auto) , Lymphocytes (%) (Auto) , Monocytes (%) (Auto) , Eosinophils (%) (Auto) , Basophils (%) (Auto) , Differential Total Cells Counted 100, Neutrophils % ( Manual) 90H, Lymphocytes % (Manual) 3L, Monocytes % (Manual) 5, Eosinophils % ( Manual) 0, Basophils % (Manual) 0, Band Neutrophils 2, Platelet Estimate DecreasedL, Platelet Morphology Normal, Anisocytosis 1+, Macrocytosis 1+, Sodium Level 137, Potassium Level 3.4L, Chloride Level 102, Carbon Dioxide Level 21, Blood Urea Nitrogen 29H, Creatinine 1.2, Estimat Glomerular Filtration Rate > 60, Glucose Level 153H, Calcium Level 8.1L, Total Bilirubin 21.3H, Direct Bilirubin 18.3H, Aspartate Amino Transf (AST/SGOT) 165H, Alanine Aminotransferase (ALT/SGPT) 63, Alkaline Phosphatase 402H, Total Protein 4.9L, Albumin 1.5L, Globulin 3.4, Albumin/Globulin Ratio 0.4L Height (Feet): 5 Height (Inches): 8.00 Weight (Pounds): 205 General Appearance: no apparent distress, alert, overweight Neurologic: alert, oriented x 3, responsive, depressed affect Trino Kirby M.D. May 07, 2017 23:01
--- NOTE | 2017-05-07 23:57 | Cardiology Progress Note ---
Assessment/Plan Assessment/Plan 1. Sinus tachycardia, resolved, due to intravascular volume depletion due to hypo-albuminemia, continue the conservative management. 2. Hypotension, resolved, off midodrine. 3. Mild pulmonary HTN. 4. Chronic liver disease. Subjective Subjective Transferred to the med-surg unit. No cardiac events. Objective Last 24 Hour Vital Signs Date Time Temp Pulse Resp B/P (MAP) Pulse Ox O2 Delivery O2 Flow Rate FiO2 05/07/17 20:00 98.1 81 18 133/67 91 Nasal Cannula 3.0 05/07/17 16:00 97.2 89 17 120/69 93 Nasal Cannula 4.0 05/07/17 11:49 97.2 68 21 121/70 97 Nasal Cannula 2.0 05/07/17 08:05 97.9 94 21 126/72 95 Nasal Cannula 2.0 05/07/17 04:00 98.3 86 18 120/68 96 Nasal Cannula 2.0 05/07/17 00:00 98.3 82 20 122/65 96 Room Air Intake and Output 05/07/17 05/08/17 19:00 07:00 Intake Total 780 ml Balance 780 ml Intake Oral 780 ml # Voids 1 # Bowel Movements 6 2D Echo: LVEF at 55%, RVSP 45 mmHg Laboratory Tests Test 05/07/17 09:30 White Blood Count 14.4 K/UL (4.8-10.8) H Red Blood Count 2.43 M/UL (4.70-6.10) L Hemoglobin 9.7 G/DL (14.2-18.0) L Hematocrit 28.8 % (42.0-52.0) L Mean Corpuscular Volume 119 FL (80-99) H Mean Corpuscular Hemoglobin 40.2 PG (27.0-31.0) H Mean Corpuscular Hemoglobin Concent 33.8 G/DL (32.0-36.0) Red Cell Distribution Width 17.1 % (11.6-14.8) H Platelet Count 105 K/UL (150-450) L Mean Platelet Volume 7.1 FL (6.5-10.1) Neutrophils (%) (Auto) % (45.0-75.0) Lymphocytes (%) (Auto) % (20.0-45.0) Monocytes (%) (Auto) % (1.0-10.0) Eosinophils (%) (Auto) % (0.0-3.0) Basophils (%) (Auto) % (0.0-2.0) Differential Total Cells Counted 100 Neutrophils % (Manual) 90 % (45-75) H Lymphocytes % (Manual) 3 % (20-45) L Monocytes % (Manual) 5 % (1-10) Eosinophils % (Manual) 0 % (0-3) Basophils % (Manual) 0 % (0-2) Band Neutrophils 2 % (0-8) Platelet Estimate Decreased L Platelet Morphology Normal Anisocytosis 1+ Macrocytosis 1+ Sodium Level 137 MMOL/L (136-145) Potassium Level 3.4 MMOL/L (3.5-5.1) L Chloride Level 102 MMOL/L (98-107) Carbon Dioxide Level 21 MMOL/L (21-32) Blood Urea Nitrogen 29 mg/dL (7-18) H Creatinine 1.2 MG/DL (0.55-1.30) Estimat Glomerular Filtration Rate > 60 mL/min (>60) Glucose Level 153 MG/DL (74-106) H Calcium Level 8.1 MG/DL (8.5-10.1) L Total Bilirubin 21.3 MG/DL (0.2-1.0) H Direct Bilirubin 18.3 MG/DL (0.0-0.3) H Aspartate Amino Transf (AST/SGOT) 165 U/L (15-37) H Alanine Aminotransferase (ALT/SGPT) 63 U/L (12-78) Alkaline Phosphatase 402 U/L (46-116) H Total Protein 4.9 G/DL (6.4-8.2) L Albumin 1.5 G/DL (3.4-5.0) L Globulin 3.4 g/dL Albumin/Globulin Ratio 0.4 (1.0-2.7) L Objective HEENT: Head is normocephalic. PERRLA, EOMI. Eyes show scleral icterus. NECK: JVD is negative, no carotid bruit, carotid upstroke 2+ B/L LUNGS: Decreased breath sounds in the bases. CARDIAC: Rhythm is regular. Tachycardia, no murmurs, gallops or rubs. ABDOMEN: Distended, soft and nontender. There is a fluid wave noted. EXTREMITIES: No clubbing or cyanosis. There is 2+ edema. HAYLEY,YAQUELIN May 07, 2017 23:57
[2017-05-08] VITALS: BP 111/56
[2017-05-08 04:00] VITALS: BP 113/70
--- NOTE | 2017-05-08 06:30 | Pulmonology Progress Note ---
Assessment/Plan Assessment/Plan 1. Respiratory failure. 2. Liver failure. 3. Cirrhosis with ascites. 4. Alcoholism. 5. Pulmonary infiltrates and effusions, probably due to ascites 6. UTI 7. peripheral edema titrate o2 nebs IV ABx and clearance per ID ordered thoracentesis - patient aware and agreeable; however US chest showed minimal fluid/has diaphragm elevation 3 liters ascites removed needs definitive procedure for recurring fluid defer to GI Subjective Interval Events: saturating well on RA Constitutional: Reports: no symptoms HEENT: Repors: no symptoms Respiratory: Reports: no symptoms Cardiovascular: Reports: no symptoms Gastrointestinal/Abdominal: Reports: no symptoms Genitourinary: Reports: no symptoms Neurologic: Reports: no symptoms Allergies: Coded Allergies: No Known Allergies (Unverified , 04/29/17) Objective Last 24 Hour Vital Signs Date Time Temp Pulse Resp B/P (MAP) Pulse Ox O2 Delivery O2 Flow Rate FiO2 05/08/17 04:00 97.5 92 20 113/70 95 Room Air 3.0 21 05/08/17 00:00 98.2 84 18 111/56 94 Room Air 05/07/17 20:00 98.1 81 18 133/67 91 Nasal Cannula 3.0 05/07/17 16:00 97.2 89 17 120/69 93 Nasal Cannula 4.0 05/07/17 11:49 97.2 68 21 121/70 97 Nasal Cannula 2.0 05/07/17 08:05 97.9 94 21 126/72 95 Nasal Cannula 2.0 General Appearance: no acute distress HEENT: normocephalic Respiratory/Chest: chest wall non-tender, decreased breath sounds Cardiovascular: normal peripheral pulses, normal rate Abdomen: normal bowel sounds, soft, non tender Laboratory Tests 05/07/17 09:30: White Blood Count 14.4H, Red Blood Count 2.43L, Hemoglobin 9.7L, Hematocrit 28.8L, Mean Corpuscular Volume 119H, Mean Corpuscular Hemoglobin 40.2H, Mean Corpuscular Hemoglobin Concent 33.8, Red Cell Distribution Width 17.1H, Platelet Count 105L, Mean Platelet Volume 7.1, Neutrophils (%) (Auto) , Lymphocytes (%) (Auto) , Monocytes (%) (Auto) , Eosinophils (%) (Auto) , Basophils (%) (Auto) , Differential Total Cells Counted 100, Neutrophils % ( Manual) 90H, Lymphocytes % (Manual) 3L, Monocytes % (Manual) 5, Eosinophils % ( Manual) 0, Basophils % (Manual) 0, Band Neutrophils 2, Platelet Estimate DecreasedL, Platelet Morphology Normal, Anisocytosis 1+, Macrocytosis 1+, Sodium Level 137, Potassium Level 3.4L, Chloride Level 102, Carbon Dioxide Level 21, Blood Urea Nitrogen 29H, Creatinine 1.2, Estimat Glomerular Filtration Rate > 60, Glucose Level 153H, Calcium Level 8.1L, Total Bilirubin 21.3H, Direct Bilirubin 18.3H, Aspartate Amino Transf (AST/SGOT) 165H, Alanine Aminotransferase (ALT/SGPT) 63, Alkaline Phosphatase 402H, Total Protein 4.9L, Albumin 1.5L, Globulin 3.4, Albumin/Globulin Ratio 0.4L Current Medications Medications (Trade) Dose Ordered Sig/Leonard Route PRN Reason Start Time Stop Time Status Last Admin Dose Admin Lactulose (Cephulac) 30 gm DAILY ORAL 05/07/17 09:00 05/31/17 13:29 05/07/17 09:32 Lorazepam (Ativan 2mg/ml 1ml) 1 mg Q4H PRN IV For Anxiety 05/07/17 17:00 05/14/17 16:59 05/07/17 17:54 Mirtazapine (Remeron) 15 mg BEDTIME ORAL 05/07/17 21:00 06/06/17 20:59 05/07/17 21:54 Potassium Chloride (KCl 10% 40mEq Oral solution) 40 meq DAILY NG 05/07/17 13:15 06/06/17 13:14 05/07/17 13:30 Prednisone (predniSONE) 40 mg DAILY ORAL 05/08/17 09:00 06/07/17 08:59 Rifaximin (Xifaxan) 550 mg EVERY 12 HOURS ORAL 05/06/17 21:00 06/04/17 21:29 05/07/17 21:55 Jason Johnson MD May 08, 2017 06:30
[2017-05-08 07:46] VITALS: BP 128/73
[2017-05-08] MEDS: Lactulose 20gm/30ml UDC ORAL SCH (09:28)
[2017-05-08] MEDS: KCl 10% 40mEq/30ml liquid NG SCH (09:28)
--- NOTE | 2017-05-08 11:12 | General Progress Note ---
Assessment/Plan Assessment/Plan Assessment and Plan # Anemia of alcoholic myelosuppression ---> anemia w/u has been reviewed. Continue to watch counts and transfuse as needed (if hgb below 7) --> improving --> s/p transfusion --> no labs for today # Coagulopathy - 2/2 liver disease and underlying cirrhosis # Leukopenia is related to splenomegaly and splenic sequestration # Thrombocytopenia is due to cirrhosis, liver involvement and splenomegaly # Hyperbilibirubinemia - 2/2 etoh abuse, liver cirrhosis # ETOH withdrawal # PNA # Jaundice of recent onset # Ascites s/p multiple paracenteses Subjective Constitutional: Reports: no symptoms HEENT: Reports: no symptoms Cardiovascular: Reports: no symptoms Respiratory: Reports: no symptoms Gastrointestinal/Abdominal: Reports: no symptoms Genitourinary: Reports: no symptoms Neurologic/Psychiatric: Reports: no symptoms Endocrine: Reports: no symptoms Hematologic/Lymphatic: Reports: no symptoms Allergies: Coded Allergies: No Known Allergies (Unverified , 04/29/17) Subjective no events ON Objective Last 24 Hour Vital Signs Date Time Temp Pulse Resp B/P (MAP) Pulse Ox O2 Delivery O2 Flow Rate FiO2 05/08/17 07:46 98.4 97 19 128/73 98 Nasal Cannula 2.0 05/08/17 04:00 97.5 92 20 113/70 95 Room Air 3.0 21 05/08/17 00:00 98.2 84 18 111/56 94 Room Air 05/07/17 20:00 98.1 81 18 133/67 91 Nasal Cannula 3.0 05/07/17 16:00 97.2 89 17 120/69 93 Nasal Cannula 4.0 05/07/17 11:49 97.2 68 21 121/70 97 Nasal Cannula 2.0 Height (Feet): 5 Height (Inches): 8.00 Weight (Pounds): 205 General Appearance: no apparent distress EENT: normal ENT inspection Neck: normal alignment Cardiovascular: normal rate Extremities: non-tender Joshua Hurley May 08, 2017 11:11
[2017-05-08 11:31] VITALS: BP 116/68
[2017-05-08 16:15] VITALS: BP 134/73
--- NOTE | 2017-05-08 16:52 | GI Progress Note ---
Assessment/Plan Problems: (1) Jaundice of recent onset ICD Codes: R17 - Unspecified jaundice SNOMED: 54893906 (2) etoh withdrawal (3) depression (4) Pneumonia ICD Codes: J18.9 - Pneumonia, unspecified organism SNOMED: 209565781 (5) Acalculous cholecystitis ICD Codes: K81.9 - Cholecystitis, unspecified SNOMED: 38477862 (6) Ascites due to alcoholic cirrhosis ICD Codes: K70.31 - Alcoholic cirrhosis of liver with ascites SNOMED: 4734975589136501 (7) Alcohol abuse ICD Codes: F10.10 - Alcohol abuse, uncomplicated SNOMED: 51460510 Status: unchanged Status Narrative Discussed with Dr. Daly. Assessment/Plan s/p paracentesis yielding 3.1 liters of bright yellow fluid. okay for DC per GI standpoint patient will be followed weekly by us in clinic elevated ammonia >> lactulose + Xifaxan low sodium diet dc midodrine and octreotide given return of kidney function prednisone 40mg x 28 days, then taper monitor LFTs not transplant candidate given active drinking Subjective Subjective limited, fatigue Objective Last 24 Hour Vital Signs Date Time Temp Pulse Resp B/P (MAP) Pulse Ox O2 Delivery O2 Flow Rate FiO2 05/08/17 16:15 98.6 96 20 134/73 97 Nasal Cannula 2.0 05/08/17 11:31 98.6 94 20 116/68 97 Nasal Cannula 2.0 05/08/17 07:46 98.4 97 19 128/73 98 Nasal Cannula 2.0 05/08/17 04:00 97.5 92 20 113/70 95 Room Air 3.0 21 05/08/17 00:00 98.2 84 18 111/56 94 Room Air 05/07/17 20:00 98.1 81 18 133/67 91 Nasal Cannula 3.0 Intake and Output 05/08/17 05/09/17 19:00 07:00 Intake Total 360 ml Output Total 500 ml Balance -140 ml Intake Oral 360 ml Output Urine Total 300 ml Stool Total 200 ml # Bowel Movements 1 Height (Feet): 5 Height (Inches): 8.00 Weight (Pounds): 205 General Appearance: WD/WN, no apparent distress, alert Cardiovascular: normal rate Respiratory/Chest: normal breath sounds, no respiratory distress Abdominal Exam: normal bowel sounds, non tender, soft Extremities: normal range of motion, non-tender Objective Jaundice Danay Grady N.P. May 08, 2017 16:52
--- NOTE | 2017-05-08 16:53 | General Progress Note ---
Assessment/Plan Status: stable Status Narrative no change Assessment/Plan status: renal failure on admit , likely hepatorenal- Cr now normalized low Na due to anasarca Low K Jaundice Anemia high Lipase High lactic low alb Plan; no labs today- K , Phos , Mag as needed Urine studies per GI- transfuse as needed monitor renal parameters- monitor lytes- poor prognosis- DC planning if no other GI plans scheduled Subjective ROS Limited/Unobtainable: No Constitutional: Reports: malaise, weakness Allergies: Coded Allergies: No Known Allergies (Unverified , 04/29/17) Objective Last 24 Hour Vital Signs Date Time Temp Pulse Resp B/P (MAP) Pulse Ox O2 Delivery O2 Flow Rate FiO2 05/08/17 16:15 98.6 96 20 134/73 97 Nasal Cannula 2.0 05/08/17 11:31 98.6 94 20 116/68 97 Nasal Cannula 2.0 05/08/17 07:46 98.4 97 19 128/73 98 Nasal Cannula 2.0 05/08/17 04:00 97.5 92 20 113/70 95 Room Air 3.0 21 05/08/17 00:00 98.2 84 18 111/56 94 Room Air 05/07/17 20:00 98.1 81 18 133/67 91 Nasal Cannula 3.0 Intake and Output 05/08/17 05/09/17 19:00 07:00 Intake Total 360 ml Output Total 500 ml Balance -140 ml Intake Oral 360 ml Output Urine Total 300 ml Stool Total 200 ml # Bowel Movements 1 Height (Feet): 5 Height (Inches): 8.00 Weight (Pounds): 205 General Appearance: no apparent distress, lethargic EENT: other - jaundiced Respiratory/Chest: decreased breath sounds Abdomen: other - ascitis Objective MIKAELA Mcdowell May 08, 2017 16:53
--- NOTE | 2017-05-08 17:55 | General Progress Note ---
Assessment/Plan Problem List: (1) Jaundice of recent onset ICD Codes: R17 - Unspecified jaundice SNOMED: 76115700 (2) Ascites due to alcoholic cirrhosis ICD Codes: K70.31 - Alcoholic cirrhosis of liver with ascites SNOMED: 6905866690716529 (3) etoh withdrawal (4) depression (5) Pneumonia ICD Codes: J18.9 - Pneumonia, unspecified organism SNOMED: 754319509 Status: progressing Assessment/Plan etoh cirrhosis ascites elev lft jaundice is persistent needs snf placement coagulapathy poor prognosis Subjective ROS Limited/Unobtainable: Yes Allergies: Coded Allergies: No Known Allergies (Unverified , 04/29/17) Objective Last 24 Hour Vital Signs Date Time Temp Pulse Resp B/P (MAP) Pulse Ox O2 Delivery O2 Flow Rate FiO2 05/08/17 16:15 98.6 96 20 134/73 97 Nasal Cannula 2.0 05/08/17 11:31 98.6 94 20 116/68 97 Nasal Cannula 2.0 05/08/17 07:46 98.4 97 19 128/73 98 Nasal Cannula 2.0 05/08/17 04:00 97.5 92 20 113/70 95 Room Air 3.0 21 05/08/17 00:00 98.2 84 18 111/56 94 Room Air 05/07/17 20:00 98.1 81 18 133/67 91 Nasal Cannula 3.0 Intake and Output 05/08/17 05/09/17 19:00 07:00 Intake Total 360 ml Output Total 500 ml Balance -140 ml Intake Oral 360 ml Output Urine Total 300 ml Stool Total 200 ml # Bowel Movements 1 Height (Feet): 5 Height (Inches): 8.00 Weight (Pounds): 205 Cardiovascular: normal rate Respiratory/Chest: lungs clear Abdomen: soft Sunday Choi MD May 08, 2017 17:55
[2017-05-08 20:00] VITALS: BP 125/67
--- NOTE | 2017-05-08 21:34 | Cardiology Progress Note ---
Assessment/Plan Assessment/Plan 1. Sinus tachycardia, resolved, due to intravascular volume depletion due to hypo-albuminemia, will start low dose propranolol. 2. Hypotension, resolved, off midodrine. 3. Mild pulmonary HTN. 4. Chronic liver disease. Subjective Subjective Comfortable, no chest pain or SOB. No cardiac events. Objective Last 24 Hour Vital Signs Date Time Temp Pulse Resp B/P (MAP) Pulse Ox O2 Delivery O2 Flow Rate FiO2 05/08/17 20:00 97.9 88 18 125/67 96 Nasal Cannula 3.0 05/08/17 16:15 98.6 96 20 134/73 97 Nasal Cannula 2.0 05/08/17 11:31 98.6 94 20 116/68 97 Nasal Cannula 2.0 05/08/17 07:46 98.4 97 19 128/73 98 Nasal Cannula 2.0 05/08/17 04:00 97.5 92 20 113/70 95 Room Air 3.0 21 05/08/17 00:00 98.2 84 18 111/56 94 Room Air Intake and Output 05/08/17 05/09/17 19:00 07:00 Intake Total 360 ml Output Total 500 ml Balance -140 ml Intake Oral 360 ml Output Urine Total 300 ml Stool Total 200 ml # Bowel Movements 1 2 2D Echo: LVEF at 55%, RVSP 45 mmHg Objective HEENT: Head is normocephalic. PERRLA, EOMI. Eyes show scleral icterus. NECK: JVD is negative, no carotid bruit, carotid upstroke 2+ B/L LUNGS: Decreased breath sounds in the bases. CARDIAC: Rhythm is regular. Tachycardia, no murmurs, gallops or rubs. ABDOMEN: Distended, soft and nontender. There is a fluid wave noted. EXTREMITIES: No clubbing or cyanosis. There is 2+ edema. YAQUELIN HARDY May 08, 2017 21:34
--- NOTE | 2017-05-08 22:35 | General Progress Note ---
Assessment/Plan Status: stable, progressing Assessment/Plan encephalopathy improving alcohol dependence -cont ativan a remeron 15mg qhs Subjective Neurologic/Psychiatric: Reports: anxiety, depressed, emotional problems Allergies: Coded Allergies: No Known Allergies (Unverified , 04/29/17) Subjective the pt is desponded. Objective Last 24 Hour Vital Signs Date Time Temp Pulse Resp B/P (MAP) Pulse Ox O2 Delivery O2 Flow Rate FiO2 05/08/17 20:00 97.9 88 18 125/67 96 Nasal Cannula 3.0 05/08/17 16:15 98.6 96 20 134/73 97 Nasal Cannula 2.0 05/08/17 11:31 98.6 94 20 116/68 97 Nasal Cannula 2.0 05/08/17 07:46 98.4 97 19 128/73 98 Nasal Cannula 2.0 05/08/17 04:00 97.5 92 20 113/70 95 Room Air 3.0 21 05/08/17 00:00 98.2 84 18 111/56 94 Room Air Intake and Output 05/08/17 05/09/17 19:00 07:00 Intake Total 360 ml Output Total 500 ml Balance -140 ml Intake Oral 360 ml Output Urine Total 300 ml Stool Total 200 ml # Bowel Movements 1 2 Height (Feet): 5 Height (Inches): 8.00 Weight (Pounds): 205 General Appearance: no apparent distress, alert, overweight Neurologic: alert, oriented x 3, responsive, depressed affect Trino Kirby M.D. May 08, 2017 22:35
[2017-05-09] VITALS: BP 122/69
[2017-05-09 04:42] VITALS: BP 145/74
[2017-05-09] MEDS: Propranolol 10mg tab ORAL SCH ×3 (07:12→20:41)
[2017-05-09 08:00] VITALS: BP 126/70
[2017-05-09] MEDS: Lactulose 20gm/30ml UDC ORAL SCH (08:49)
[2017-05-09] MEDS: KCl 10% 40mEq/30ml liquid NG SCH (08:49)
--- NOTE | 2017-05-09 09:18 | Pulmonology Progress Note ---
Assessment/Plan Assessment/Plan 1. Respiratory failure. 2. Liver failure. 3. Cirrhosis with ascites. 4. Alcoholism. 5. Pulmonary infiltrates and effusions, probably due to ascites 6. UTI 7. peripheral edema titrate o2 nebs IV ABx and clearance per ID ordered thoracentesis - patient aware and agreeable; however US chest showed minimal fluid/has diaphragm elevation 3 liters ascites removed needs definitive procedure for recurring fluid defer to GI Subjective Interval Events: Doing well; saturating 95% on RA; CXR/US shows minimal pleural fluid, Constitutional: Reports: no symptoms HEENT: Repors: no symptoms Respiratory: Reports: dry cough Cardiovascular: Reports: no symptoms Gastrointestinal/Abdominal: Reports: no symptoms Genitourinary: Reports: no symptoms Allergies: Coded Allergies: No Known Allergies (Unverified , 04/29/17) Objective Last 24 Hour Vital Signs Date Time Temp Pulse Resp B/P (MAP) Pulse Ox O2 Delivery O2 Flow Rate FiO2 05/09/17 07:12 97 145/74 05/09/17 04:42 98.1 97 18 145/74 98 Room Air 05/09/17 00:00 97.7 86 18 122/69 98 Nasal Cannula 3.0 05/08/17 20:00 97.9 88 18 125/67 96 Nasal Cannula 3.0 05/08/17 19:46 97 Nasal Cannula 3.0 32 05/08/17 19:46 Nasal Cannula 3.0 32 05/08/17 16:15 98.6 96 20 134/73 97 Nasal Cannula 2.0 05/08/17 11:31 98.6 94 20 116/68 97 Nasal Cannula 2.0 General Appearance: no acute distress HEENT: normocephalic Respiratory/Chest: chest wall non-tender, decreased breath sounds Cardiovascular: normal peripheral pulses, normal rate Abdomen: normal bowel sounds, soft, non tender Current Medications Medications (Trade) Dose Ordered Sig/Leonard Route PRN Reason Start Time Stop Time Status Last Admin Dose Admin Lactulose (Cephulac) 30 gm DAILY ORAL 05/07/17 09:00 05/31/17 13:29 05/09/17 08:49 Lorazepam (Ativan 2mg/ml 1ml) 1 mg Q4H PRN IV For Anxiety 05/07/17 17:00 05/14/17 16:59 05/07/17 17:54 Mirtazapine (Remeron) 15 mg BEDTIME ORAL 05/07/17 21:00 06/06/17 20:59 05/08/17 20:47 Potassium Chloride (KCl 10% 40mEq Oral solution) 40 meq DAILY NG 05/07/17 13:15 06/06/17 13:14 05/09/17 08:49 Prednisone (predniSONE) 40 mg DAILY ORAL 05/08/17 09:00 06/07/17 08:59 05/09/17 08:49 Propranolol HCl (Inderal) 10 mg Q8HR ORAL 05/09/17 07:00 06/08/17 06:59 05/09/17 07:12 Rifaximin (Xifaxan) 550 mg EVERY 12 HOURS ORAL 05/06/17 21:00 06/04/17 21:29 05/09/17 08:49 Jason Johnson MD May 09, 2017 09:18
--- NOTE | 2017-05-09 11:01 | GI Progress Note ---
Assessment/Plan Problems: (1) Jaundice of recent onset ICD Codes: R17 - Unspecified jaundice SNOMED: 15914766 (2) etoh withdrawal (3) depression (4) Pneumonia ICD Codes: J18.9 - Pneumonia, unspecified organism SNOMED: 314996844 (5) Acalculous cholecystitis ICD Codes: K81.9 - Cholecystitis, unspecified SNOMED: 62549506 (6) Ascites due to alcoholic cirrhosis ICD Codes: K70.31 - Alcoholic cirrhosis of liver with ascites SNOMED: 2875909553598475 (7) Alcohol abuse ICD Codes: F10.10 - Alcohol abuse, uncomplicated SNOMED: 87364618 Status: unchanged Status Narrative Discussed with Dr. Daly. Assessment/Plan s/p paracentesis yielding 3.1 liters of bright yellow fluid. okay for DC per GI standpoint patient will be followed weekly by us in clinic elevated ammonia >> lactulose + Xifaxan low sodium diet dc midodrine and octreotide given return of kidney function prednisone 40mg x 28 days, then taper monitor LFTs not transplant candidate given active drinking fu labs Subjective Subjective worked with PT refusing labs Objective Last 24 Hour Vital Signs Date Time Temp Pulse Resp B/P (MAP) Pulse Ox O2 Delivery O2 Flow Rate FiO2 05/09/17 08:00 97.9 101 20 126/70 97 Room Air 05/09/17 07:12 97 145/74 05/09/17 04:42 98.1 97 18 145/74 98 Room Air 05/09/17 00:00 97.7 86 18 122/69 98 Nasal Cannula 3.0 05/08/17 20:00 97.9 88 18 125/67 96 Nasal Cannula 3.0 05/08/17 19:46 97 Nasal Cannula 3.0 32 05/08/17 19:46 Nasal Cannula 3.0 32 05/08/17 16:15 98.6 96 20 134/73 97 Nasal Cannula 2.0 05/08/17 11:31 98.6 94 20 116/68 97 Nasal Cannula 2.0 Height (Feet): 5 Height (Inches): 8.00 Weight (Pounds): 205 General Appearance: WD/WN, no apparent distress, alert Cardiovascular: normal rate Respiratory/Chest: normal breath sounds, no respiratory distress Abdominal Exam: normal bowel sounds, non tender, soft Objective Jaundice Danay Grady N.P. May 09, 2017 11:01
--- NOTE | 2017-05-09 11:15 | General Progress Note ---
Assessment/Plan Problem List: (1) Jaundice of recent onset ICD Codes: R17 - Unspecified jaundice SNOMED: 90355802 (2) Ascites due to alcoholic cirrhosis ICD Codes: K70.31 - Alcoholic cirrhosis of liver with ascites SNOMED: 6397106657217213 (3) etoh withdrawal (4) depression (5) Pneumonia ICD Codes: J18.9 - Pneumonia, unspecified organism SNOMED: 008767096 Status: unchanged Assessment/Plan etoh cirrhosis ascites needs snf placement persistent jaundice due to cirrhosis per gi poor prognosis Subjective ROS Limited/Unobtainable: Yes Constitutional: Reports: no symptoms Allergies: Coded Allergies: No Known Allergies (Unverified , 04/29/17) Objective Last 24 Hour Vital Signs Date Time Temp Pulse Resp B/P (MAP) Pulse Ox O2 Delivery O2 Flow Rate FiO2 05/09/17 08:00 97.9 101 20 126/70 97 Room Air 05/09/17 07:12 97 145/74 05/09/17 04:42 98.1 97 18 145/74 98 Room Air 05/09/17 00:00 97.7 86 18 122/69 98 Nasal Cannula 3.0 05/08/17 20:00 97.9 88 18 125/67 96 Nasal Cannula 3.0 05/08/17 19:46 97 Nasal Cannula 3.0 32 05/08/17 19:46 Nasal Cannula 3.0 32 05/08/17 16:15 98.6 96 20 134/73 97 Nasal Cannula 2.0 05/08/17 11:31 98.6 94 20 116/68 97 Nasal Cannula 2.0 Height (Feet): 5 Height (Inches): 8.00 Weight (Pounds): 205 Neck: supple Cardiovascular: normal rate Respiratory/Chest: lungs clear Sunday Choi MD May 09, 2017 11:15
[2017-05-09 12:00] VITALS: BP 124/69
--- NOTE | 2017-05-09 13:04 | General Progress Note ---
Assessment/Plan Status: stable, progressing Assessment/Plan encephalopathy improving alcohol dependence -cont ativan a remeron 15mg qhs Subjective Neurologic/Psychiatric: Reports: anxiety, depressed, emotional problems Allergies: Coded Allergies: No Known Allergies (Unverified , 04/29/17) Subjective the pt was told that he is doing well and has good prognosis. the pt family want the pt to got to rehab . the pt is more hopeful Objective Last 24 Hour Vital Signs Date Time Temp Pulse Resp B/P (MAP) Pulse Ox O2 Delivery O2 Flow Rate FiO2 05/09/17 08:00 97.9 101 20 126/70 97 Room Air 05/09/17 07:12 97 145/74 05/09/17 04:42 98.1 97 18 145/74 98 Room Air 05/09/17 00:00 97.7 86 18 122/69 98 Nasal Cannula 3.0 05/08/17 20:00 97.9 88 18 125/67 96 Nasal Cannula 3.0 05/08/17 19:46 97 Nasal Cannula 3.0 32 05/08/17 19:46 Nasal Cannula 3.0 32 05/08/17 16:15 98.6 96 20 134/73 97 Nasal Cannula 2.0 Height (Feet): 5 Height (Inches): 8.00 Weight (Pounds): 205 General Appearance: no apparent distress, alert, overweight Neurologic: alert, oriented x 3, responsive, depressed affect Trino Kirby M.D. May 09, 2017 13:04
--- NOTE | 2017-05-09 15:18 | General Progress Note ---
Assessment/Plan Status: stable Assessment/Plan status: renal failure on admit , likely hepatorenal- Cr now normalized low Na due to anasarca Low K Jaundice Anemia high Lipase High lactic low alb Plan; no labs today- K , Phos , Mag as needed Urine studies per GI- transfuse as needed monitor renal parameters- monitor lytes- poor prognosis- DC planning if no other GI plans scheduled Subjective ROS Limited/Unobtainable: No Constitutional: Reports: malaise, weakness Allergies: Coded Allergies: No Known Allergies (Unverified , 04/29/17) Objective Last 24 Hour Vital Signs Date Time Temp Pulse Resp B/P (MAP) Pulse Ox O2 Delivery O2 Flow Rate FiO2 05/09/17 14:00 80 111/67 05/09/17 12:00 98.0 96 20 124/69 98 Room Air 05/09/17 11:15 98 Room Air 21 05/09/17 11:15 Room Air 21 05/09/17 08:00 97.9 101 20 126/70 97 Room Air 05/09/17 07:12 97 145/74 05/09/17 04:42 98.1 97 18 145/74 98 Room Air 05/09/17 00:00 97.7 86 18 122/69 98 Nasal Cannula 3.0 05/08/17 20:00 97.9 88 18 125/67 96 Nasal Cannula 3.0 05/08/17 19:46 97 Nasal Cannula 3.0 32 05/08/17 19:46 Nasal Cannula 3.0 32 05/08/17 16:15 98.6 96 20 134/73 97 Nasal Cannula 2.0 Height (Feet): 5 Height (Inches): 8.00 Weight (Pounds): 205 General Appearance: no apparent distress, lethargic EENT: scleral icterus, other Abdomen: distended Skin: other - jaundiced Objective MIKAELA Mcdowell May 09, 2017 15:17
[2017-05-09 16:00] VITALS: BP 124/71
--- NOTE | 2017-05-09 17:42 | General Progress Note ---
Assessment/Plan Assessment/Plan Assessment and Plan # Anemia of alcoholic myelosuppression ---> anemia w/u has been reviewed. Continue to watch counts and transfuse as needed (if hgb below 7) --> improving --> s/p transfusion --> no labs for today # Coagulopathy - 2/2 liver disease and underlying cirrhosis # Leukocytosis likely reactive from steroids # Thrombocytopenia is due to cirrhosis, liver involvement and splenomegaly # Hyperbilibirubinemia - 2/2 etoh abuse, liver cirrhosis # ETOH withdrawal # PNA # Jaundice of recent onset # Ascites s/p multiple paracenteses Subjective Allergies: Coded Allergies: No Known Allergies (Unverified , 04/29/17) All Systems: reviewed and negative except above Subjective no new complaints Objective Last 24 Hour Vital Signs Date Time Temp Pulse Resp B/P (MAP) Pulse Ox O2 Delivery O2 Flow Rate FiO2 05/09/17 14:00 80 111/67 05/09/17 12:00 98.0 96 20 124/69 98 Room Air 05/09/17 11:15 98 Room Air 21 05/09/17 11:15 Room Air 21 05/09/17 08:00 97.9 101 20 126/70 97 Room Air 05/09/17 07:12 97 145/74 05/09/17 04:42 98.1 97 18 145/74 98 Room Air 05/09/17 00:00 97.7 86 18 122/69 98 Nasal Cannula 3.0 05/08/17 20:00 97.9 88 18 125/67 96 Nasal Cannula 3.0 05/08/17 19:46 97 Nasal Cannula 3.0 32 05/08/17 19:46 Nasal Cannula 3.0 32 Intake and Output 05/09/17 05/10/17 19:00 07:00 Intake Total 640 ml Balance 640 ml Intake Oral 640 ml # Voids 6 # Bowel Movements 2 Height (Feet): 5 Height (Inches): 8.00 Weight (Pounds): 205 Joshua Hurley May 09, 2017 17:42
[2017-05-09 20:00] VITALS: BP 125/73
--- NOTE | 2017-05-09 22:57 | Infectious Diseases Prog Note ---
Assessment/Plan Problems: (1) Leukocytosis Assessment & Plan: Sepsis? Reactive due to steroids. Stable. Cultures NGTD. Status post a course of Unasyn for acalculous cholecystitis versus pneumonia versus UTI. Follow-up WBC. Overall clinically stable. Recheck cultures if T>100.4. (2) Liver cirrhosis, alcoholic (3) Ascites due to alcoholic cirrhosis (4) Jaundice of recent onset (5) Alcohol abuse Subjective Allergies: Coded Allergies: No Known Allergies (Unverified , 04/29/17) Objective Vital Signs Last 24 Hour Vital Signs Date Time Temp Pulse Resp B/P (MAP) Pulse Ox O2 Delivery O2 Flow Rate FiO2 05/09/17 20:41 78 124/71 05/09/17 20:25 93 Room Air 21 05/09/17 20:25 Room Air 21 05/09/17 20:00 97.7 82 20 125/73 90 Room Air 05/09/17 16:00 98.6 78 16 124/71 97 05/09/17 14:00 80 111/67 05/09/17 12:00 98.0 96 20 124/69 98 Room Air 05/09/17 11:15 98 Room Air 21 05/09/17 11:15 Room Air 21 05/09/17 08:00 97.9 101 20 126/70 97 Room Air 05/09/17 07:12 97 145/74 05/09/17 04:42 98.1 97 18 145/74 98 Room Air 05/09/17 00:00 97.7 86 18 122/69 98 Nasal Cannula 3.0 Height (Feet): 5 Height (Inches): 8.00 Weight (Pounds): 205 Current Medications Medications (Trade) Dose Ordered Sig/Leonard Route PRN Reason Start Time Stop Time Status Last Admin Dose Admin Lactulose (Cephulac) 30 gm DAILY ORAL 05/07/17 09:00 05/31/17 13:29 05/09/17 08:49 Lorazepam (Ativan 2mg/ml 1ml) 1 mg Q4H PRN IV For Anxiety 05/07/17 17:00 05/14/17 16:59 05/07/17 17:54 Mirtazapine (Remeron) 15 mg BEDTIME ORAL 05/07/17 21:00 06/06/17 20:59 05/09/17 20:41 Potassium Chloride (KCl 10% 40mEq Oral solution) 40 meq DAILY NG 05/07/17 13:15 06/06/17 13:14 05/09/17 08:49 Prednisone (predniSONE) 40 mg DAILY ORAL 05/08/17 09:00 06/07/17 08:59 05/09/17 08:49 Propranolol HCl (Inderal) 10 mg Q8HR ORAL 05/09/17 07:00 06/08/17 06:59 05/09/17 20:41 Rifaximin (Xifaxan) 550 mg EVERY 12 HOURS ORAL 05/06/17 21:00 06/04/17 21:29 05/09/17 20:41 PERCY DALTON May 09, 2017 22:57
--- NOTE | 2017-05-09 23:49 | Cardiology Progress Note ---
Assessment/Plan Assessment/Plan 1. Sinus tachycardia, resolved, due to intravascular volume depletion due to hypo-albuminemia, continue Inderal. 3. Mild pulmonary HTN. 4. Chronic liver disease. Subjective Subjective No chest pain or SOB. No cardiac events. Objective Last 24 Hour Vital Signs Date Time Temp Pulse Resp B/P (MAP) Pulse Ox O2 Delivery O2 Flow Rate FiO2 05/09/17 20:41 78 124/71 05/09/17 20:25 93 Room Air 21 05/09/17 20:25 Room Air 21 05/09/17 20:00 97.7 82 20 125/73 90 Room Air 05/09/17 16:00 98.6 78 16 124/71 97 05/09/17 14:00 80 111/67 05/09/17 12:00 98.0 96 20 124/69 98 Room Air 05/09/17 11:15 98 Room Air 21 05/09/17 11:15 Room Air 21 05/09/17 08:00 97.9 101 20 126/70 97 Room Air 05/09/17 07:12 97 145/74 05/09/17 04:42 98.1 97 18 145/74 98 Room Air 05/09/17 00:00 97.7 86 18 122/69 98 Nasal Cannula 3.0 Intake and Output 05/09/17 05/10/17 19:00 07:00 Intake Total 640 ml Balance 640 ml Intake Oral 640 ml # Voids 6 # Bowel Movements 2 2D Echo: LVEF at 55%, RVSP 45 mmHg Objective HEENT: Head is normocephalic. PERRLA, EOMI. Eyes show scleral icterus. NECK: JVD is negative, no carotid bruit, carotid upstroke 2+ B/L LUNGS: Decreased breath sounds in the bases. CARDIAC: Rhythm is regular. Tachycardia, no murmurs, gallops or rubs. ABDOMEN: Distended, soft and nontender. There is a fluid wave noted. EXTREMITIES: No clubbing or cyanosis. There is 2+ edema. YAQUELIN HARDY May 09, 2017 23:49
[2017-05-10] VITALS: BP 127/69
[2017-05-10 04:00] VITALS: BP 121/69
[2017-05-10] MEDS: Propranolol 10mg tab ORAL SCH ×3 (06:09→21:31)
[2017-05-10 07:22] LABS: MEAN CORPUSCULAR HGB CONC 31.6 G/DL (32.0-36.0); MEAN CORPUSCULAR VOLUME 120 FL (80-99); MEAN PLATELET VOLUME 8.4 FL (6.5-10.1); PLATELET COUNT 153 K/UL (150-450); RED BLOOD COUNT 2.48 M/UL (4.70-6.10); RED CELL DISTRIBUTION WIDTH 17.3 % (11.6-14.8)
[2017-05-10 07:57] LABS: WHITE BLOOD COUNT 22.6 K/UL (4.8-10.8)
[2017-05-10 08:39] VITALS: BP 119/73
[2017-05-10 08:46] LABS: ALANINE AMINOTRANSFERASE 73 U/L (12-78); ALBUMIN/GLOBULIN RATIO 0.5 (1.0-2.7); ANION GAP 9 mmol/L (5-15); ASPARTATE AMINO TRANSFERASE 152 U/L (15-37); CALCIUM 8.4 MG/DL (8.5-10.1); CARBON DIOXIDE 25 MMOL/L (21-32); CHLORIDE 106 MMOL/L (98-107); CREATININE 1.3 MG/DL (0.55-1.30); GLOMERULAR FILTRATION RATE > 60 mL/min (>60); POTASSIUM 4.2 MMOL/L (3.5-5.1); SODIUM 140 MMOL/L (136-145); TOTAL PROTEIN 4.8 G/DL (6.4-8.2)
[2017-05-10] MEDS: KCl 10% 40mEq/30ml liquid NG SCH (08:54)
[2017-05-10] MEDS: Lactulose 20gm/30ml UDC ORAL SCH (08:54)
[2017-05-10 09:20] LABS: BILIRUBIN,DIRECT 17.5 MG/DL (0.0-0.3)
[2017-05-10 09:47] LABS: LYMPHOCYTES % (MANUAL) 3 % (20-45); NEUTROPHILS % (MANUAL) 92 % (45-75); TOTAL CELLS COUNTED 100
[2017-05-10 09:48] LABS: ANISOCYTOSIS 1+; BAND NEUTROPHILS % (MANUAL) 0 % (0-8); BASOPHILS % (MANUAL) 0 % (0-2); EOSINOPHILS % (MANUAL) 0 % (0-3); PLATELET ESTIMATE ADEQUATE; PLATELET MORPHOLOGY NORMAL
--- NOTE | 2017-05-10 11:21 | General Progress Note ---
Assessment/Plan Problem List: (1) Jaundice of recent onset ICD Codes: R17 - Unspecified jaundice SNOMED: 21420669 (2) Ascites due to alcoholic cirrhosis ICD Codes: K70.31 - Alcoholic cirrhosis of liver with ascites SNOMED: 7094030002059010 (3) etoh withdrawal (4) depression (5) Pneumonia ICD Codes: J18.9 - Pneumonia, unspecified organism SNOMED: 722731302 (6) Acalculous cholecystitis ICD Codes: K81.9 - Cholecystitis, unspecified SNOMED: 65686422 Status: stable, progressing Assessment/Plan ot pt diet abx cbc bmp am Subjective Constitutional: Reports: weakness Allergies: Coded Allergies: No Known Allergies (Unverified , 04/29/17) All Systems: reviewed and negative except above Subjective sleepy in bed Objective Last 24 Hour Vital Signs Date Time Temp Pulse Resp B/P (MAP) Pulse Ox O2 Delivery O2 Flow Rate FiO2 05/10/17 10:29 Room Air 21 05/10/17 08:39 97.0 75 20 119/73 97 Room Air 05/10/17 08:13 97 Room Air 21 05/10/17 06:09 80 121/69 05/10/17 04:00 97.7 80 22 121/69 95 Room Air 05/10/17 00:00 98.1 76 18 127/69 95 Nasal Cannula 3.0 05/09/17 20:41 78 124/71 05/09/17 20:25 93 Room Air 21 05/09/17 20:25 Room Air 21 05/09/17 20:00 97.7 82 20 125/73 90 Room Air 05/09/17 16:00 98.6 78 16 124/71 97 05/09/17 14:00 80 111/67 05/09/17 12:00 98.0 96 20 124/69 98 Room Air Intake and Output 05/10/17 05/11/17 19:00 07:00 # Bowel Movements 1 Laboratory Tests 05/10/17 04:50: White Blood Count 22.6*H, Red Blood Count 2.48L, Hemoglobin 9.4L, Hematocrit 29.8L, Mean Corpuscular Volume 120H, Mean Corpuscular Hemoglobin 38.0H, Mean Corpuscular Hemoglobin Concent 31.6L, Red Cell Distribution Width 17.3H, Platelet Count 153, Mean Platelet Volume 8.4, Neutrophils (%) (Auto) , Lymphocytes (%) (Auto) , Monocytes (%) (Auto) , Eosinophils (%) (Auto) , Basophils (%) (Auto) , Differential Total Cells Counted 100, Neutrophils % ( Manual) 92H, Lymphocytes % (Manual) 3L, Monocytes % (Manual) 5, Eosinophils % ( Manual) 0, Basophils % (Manual) 0, Band Neutrophils 0, Platelet Estimate Adequate, Platelet Morphology Normal, Anisocytosis 1+, Sodium Level 140, Potassium Level 4.2, Chloride Level 106, Carbon Dioxide Level 25, Anion Gap 9, Blood Urea Nitrogen 31H, Creatinine 1.3, Estimat Glomerular Filtration Rate > 60 , Glucose Level 104, Calcium Level 8.4L, Total Bilirubin 20.6H, Direct Bilirubin 17.5H, Aspartate Amino Transf (AST/SGOT) 152H, Alanine Aminotransferase (ALT/SGPT) 73, Alkaline Phosphatase 418H, Total Protein 4.8L, Albumin 1.5L, Globulin 3.3, Albumin/Globulin Ratio 0.5L Height (Feet): 5 Height (Inches): 8.00 Weight (Pounds): 205 General Appearance: lethargic EENT: normal ENT inspection Neck: normal alignment Cardiovascular: normal peripheral pulses, normal rate, regular rhythm Respiratory/Chest: chest wall non-tender, lungs clear, normal breath sounds Abdomen: normal bowel sounds, non tender, soft Extremities: normal inspection Edema: no edema noted Arm (L), no edema noted Arm (R), no edema noted Leg (L), no edema noted Leg (R), no edema noted Pedal (L), no edema noted Pedal (R), no edema noted Generalized Neurologic: responsive, motor weakness Skin: normal pigmentation, warm/dry MEENA AGUIRRE May 10, 2017 11:21
[2017-05-10 11:24] VITALS: BP 107/65
--- NOTE | 2017-05-10 13:11 | General Progress Note ---
Assessment/Plan Status: stable - renal parameters, unchanged Status Narrative WBCs up ? steroid effect? Assessment/Plan status: renal failure on admit , likely hepatorenal- Cr now normalized low Na due to anasarca Low K Jaundice Anemia high Lipase High lactic low alb Plan; K , Phos , Mag as needed Urine studies per GI- transfuse as needed monitor renal parameters- monitor lytes- poor prognosis- DC planning if no other GI plans scheduled Subjective ROS Limited/Unobtainable: No Constitutional: Reports: malaise, weakness Allergies: Coded Allergies: No Known Allergies (Unverified , 04/29/17) Objective Last 24 Hour Vital Signs Date Time Temp Pulse Resp B/P (MAP) Pulse Ox O2 Delivery O2 Flow Rate FiO2 05/10/17 11:24 97.5 82 20 107/65 94 Room Air 05/10/17 10:29 Room Air 21 05/10/17 08:39 97.0 75 20 119/73 97 Room Air 05/10/17 08:13 97 Room Air 21 05/10/17 06:09 80 121/69 05/10/17 04:00 97.7 80 22 121/69 95 Room Air 05/10/17 00:00 98.1 76 18 127/69 95 Nasal Cannula 3.0 05/09/17 20:41 78 124/71 05/09/17 20:25 93 Room Air 21 05/09/17 20:25 Room Air 21 05/09/17 20:00 97.7 82 20 125/73 90 Room Air 05/09/17 16:00 98.6 78 16 124/71 97 05/09/17 14:00 80 111/67 Intake and Output 05/10/17 05/11/17 19:00 07:00 # Bowel Movements 1 Laboratory Tests 05/10/17 04:50: White Blood Count 22.6*H, Red Blood Count 2.48L, Hemoglobin 9.4L, Hematocrit 29.8L, Mean Corpuscular Volume 120H, Mean Corpuscular Hemoglobin 38.0H, Mean Corpuscular Hemoglobin Concent 31.6L, Red Cell Distribution Width 17.3H, Platelet Count 153, Mean Platelet Volume 8.4, Neutrophils (%) (Auto) , Lymphocytes (%) (Auto) , Monocytes (%) (Auto) , Eosinophils (%) (Auto) , Basophils (%) (Auto) , Differential Total Cells Counted 100, Neutrophils % ( Manual) 92H, Lymphocytes % (Manual) 3L, Monocytes % (Manual) 5, Eosinophils % ( Manual) 0, Basophils % (Manual) 0, Band Neutrophils 0, Platelet Estimate Adequate, Platelet Morphology Normal, Anisocytosis 1+, Sodium Level 140, Potassium Level 4.2, Chloride Level 106, Carbon Dioxide Level 25, Anion Gap 9, Blood Urea Nitrogen 31H, Creatinine 1.3, Estimat Glomerular Filtration Rate > 60 , Glucose Level 104, Uric Acid [Pending], Calcium Level 8.4L, Phosphorus Level [ Pending], Total Bilirubin 20.6H, Direct Bilirubin 17.5H, Aspartate Amino Transf (AST/SGOT) 152H, Alanine Aminotransferase (ALT/SGPT) 73, Alkaline Phosphatase 418H, Total Protein 4.8L, Albumin 1.5L, Globulin 3.3, Albumin/Globulin Ratio 0.5L Height (Feet): 5 Height (Inches): 8.00 Weight (Pounds): 205 General Appearance: no apparent distress Respiratory/Chest: decreased breath sounds Abdomen: distended Objective MIKAELA Mcdowell May 10, 2017 13:11
[2017-05-10 13:37] LABS: PHOSPHORUS 3.8 MG/DL (2.5-4.9); URIC ACID 4.6 MG/DL (2.6-7.2)
--- NOTE | 2017-05-10 15:59 | Pulmonology Progress Note ---
Assessment/Plan Assessment/Plan 1. Respiratory failure. 2. Liver failure. 3. Cirrhosis with ascites. 4. Alcoholism. 5. Pulmonary infiltrates and effusions, probably due to ascites 6. UTI 7. peripheral edema titrate o2 nebs IV ABx and clearance per ID needs definitive procedure for recurring fluid,defer to GI po as tolerated aspiration precautions oob with assistance Subjective Constitutional: Reports: no symptoms HEENT: Repors: no symptoms Respiratory: Reports: no symptoms Gastrointestinal/Abdominal: Reports: no symptoms Allergies: Coded Allergies: No Known Allergies (Unverified , 04/29/17) Subjective seen and examined less confused no fever tolerating po awake moves extremities tolerating pt remains on o2 no cp nv or bleeding Objective Last 24 Hour Vital Signs Date Time Temp Pulse Resp B/P (MAP) Pulse Ox O2 Delivery O2 Flow Rate FiO2 05/10/17 13:31 82 107/65 05/10/17 11:24 97.5 82 20 107/65 94 Room Air 05/10/17 10:29 Room Air 21 05/10/17 08:39 97.0 75 20 119/73 97 Room Air 05/10/17 08:13 97 Room Air 21 05/10/17 06:09 80 121/69 05/10/17 04:00 97.7 80 22 121/69 95 Room Air 05/10/17 00:00 98.1 76 18 127/69 95 Nasal Cannula 3.0 05/09/17 20:41 78 124/71 05/09/17 20:25 93 Room Air 21 05/09/17 20:25 Room Air 21 05/09/17 20:00 97.7 82 20 125/73 90 Room Air 05/09/17 16:00 98.6 78 16 124/71 97 Intake and Output 05/10/17 05/11/17 19:00 07:00 # Bowel Movements 1 General Appearance: WD/WN HEENT: other - icteric Respiratory/Chest: lungs clear Abdomen: soft, non tender, non distended Skin: no rash, no lesions, other - jaundice 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 II-XII grossly normal, no motor/sensory deficits, oriented x 3 Lymphatic: no neck adenopathy Laboratory Tests 05/10/17 04:50: White Blood Count 22.6*H, Red Blood Count 2.48L, Hemoglobin 9.4L, Hematocrit 29.8L, Mean Corpuscular Volume 120H, Mean Corpuscular Hemoglobin 38.0H, Mean Corpuscular Hemoglobin Concent 31.6L, Red Cell Distribution Width 17.3H, Platelet Count 153, Mean Platelet Volume 8.4, Neutrophils (%) (Auto) , Lymphocytes (%) (Auto) , Monocytes (%) (Auto) , Eosinophils (%) (Auto) , Basophils (%) (Auto) , Differential Total Cells Counted 100, Neutrophils % ( Manual) 92H, Lymphocytes % (Manual) 3L, Monocytes % (Manual) 5, Eosinophils % ( Manual) 0, Basophils % (Manual) 0, Band Neutrophils 0, Platelet Estimate Adequate, Platelet Morphology Normal, Anisocytosis 1+, Sodium Level 140, Potassium Level 4.2, Chloride Level 106, Carbon Dioxide Level 25, Anion Gap 9, Blood Urea Nitrogen 31H, Creatinine 1.3, Estimat Glomerular Filtration Rate > 60 , Glucose Level 104, Uric Acid 4.6, Calcium Level 8.4L, Phosphorus Level 3.8, Total Bilirubin 20.6H, Direct Bilirubin 17.5H, Aspartate Amino Transf (AST/SGOT ) 152H, Alanine Aminotransferase (ALT/SGPT) 73, Alkaline Phosphatase 418H, Total Protein 4.8L, Albumin 1.5L, Globulin 3.3, Albumin/Globulin Ratio 0.5L Current Medications Medications (Trade) Dose Ordered Sig/Leonard Route PRN Reason Start Time Stop Time Status Last Admin Dose Admin Lactulose (Cephulac) 30 gm DAILY ORAL 05/07/17 09:00 05/31/17 13:29 05/10/17 08:54 Lorazepam (Ativan 2mg/ml 1ml) 1 mg Q4H PRN IV For Anxiety 05/07/17 17:00 05/14/17 16:59 05/07/17 17:54 Mirtazapine (Remeron) 15 mg BEDTIME ORAL 05/07/17 21:00 06/06/17 20:59 05/09/17 20:41 Prednisone (predniSONE) 40 mg DAILY ORAL 05/08/17 09:00 06/07/17 08:59 05/10/17 08:56 Propranolol HCl (Inderal) 10 mg Q8HR ORAL 05/09/17 07:00 06/08/17 06:59 05/10/17 06:09 Rifaximin (Xifaxan) 550 mg EVERY 12 HOURS ORAL 05/06/17 21:00 06/04/17 21:29 05/10/17 08:56 KELSEY CABAN DO May 10, 2017 15:59
[2017-05-10 16:04] VITALS: BP 112/63
--- NOTE | 2017-05-10 18:20 | General Progress Note ---
Assessment/Plan Assessment/Plan Assessment - Etoh Hepatitis - Liver failure - coagulopathy - Ascites - prognosis guarded Recommendations - continue steroids - xifaxan and lactulose - follow labs Subjective Allergies: Coded Allergies: No Known Allergies (Unverified , 04/29/17) Subjective Feels OK family at bedside no new complaints Objective Last 24 Hour Vital Signs Date Time Temp Pulse Resp B/P (MAP) Pulse Ox O2 Delivery O2 Flow Rate FiO2 05/10/17 16:04 97.5 85 20 112/63 97 Nasal Cannula 3.0 05/10/17 13:31 82 107/65 05/10/17 11:24 97.5 82 20 107/65 94 Room Air 05/10/17 10:29 Room Air 21 05/10/17 08:39 97.0 75 20 119/73 97 Room Air 05/10/17 08:13 97 Room Air 21 05/10/17 06:09 80 121/69 05/10/17 04:00 97.7 80 22 121/69 95 Room Air 05/10/17 00:00 98.1 76 18 127/69 95 Nasal Cannula 3.0 05/09/17 20:41 78 124/71 05/09/17 20:25 93 Room Air 21 05/09/17 20:25 Room Air 21 05/09/17 20:00 97.7 82 20 125/73 90 Room Air Intake and Output 05/10/17 05/11/17 19:00 07:00 Intake Total 450 ml Output Total 620 ml Balance -170 ml Intake Oral 450 ml Output Urine Total 420 ml Stool Total 200 ml # Bowel Movements 1 Laboratory Tests 05/10/17 04:50: White Blood Count 22.6*H, Red Blood Count 2.48L, Hemoglobin 9.4L, Hematocrit 29.8L, Mean Corpuscular Volume 120H, Mean Corpuscular Hemoglobin 38.0H, Mean Corpuscular Hemoglobin Concent 31.6L, Red Cell Distribution Width 17.3H, Platelet Count 153, Mean Platelet Volume 8.4, Neutrophils (%) (Auto) , Lymphocytes (%) (Auto) , Monocytes (%) (Auto) , Eosinophils (%) (Auto) , Basophils (%) (Auto) , Differential Total Cells Counted 100, Neutrophils % ( Manual) 92H, Lymphocytes % (Manual) 3L, Monocytes % (Manual) 5, Eosinophils % ( Manual) 0, Basophils % (Manual) 0, Band Neutrophils 0, Platelet Estimate Adequate, Platelet Morphology Normal, Anisocytosis 1+, Sodium Level 140, Potassium Level 4.2, Chloride Level 106, Carbon Dioxide Level 25, Anion Gap 9, Blood Urea Nitrogen 31H, Creatinine 1.3, Estimat Glomerular Filtration Rate > 60 , Glucose Level 104, Uric Acid 4.6, Calcium Level 8.4L, Phosphorus Level 3.8, Total Bilirubin 20.6H, Direct Bilirubin 17.5H, Aspartate Amino Transf (AST/SGOT ) 152H, Alanine Aminotransferase (ALT/SGPT) 73, Alkaline Phosphatase 418H, Total Protein 4.8L, Albumin 1.5L, Globulin 3.3, Albumin/Globulin Ratio 0.5L Height (Feet): 5 Height (Inches): 8.00 Weight (Pounds): 205 Objective Jaundiced NCAT supple CTA RRR soft NT ND no edema DEEPA GARCIA May 10, 2017 18:20
[2017-05-10 20:00] VITALS: BP 120/73
--- NOTE | 2017-05-10 23:20 | General Progress Note ---
Assessment/Plan Status: doing well, stable, progressing Assessment/Plan encephalopathy improving alcohol dependence -cont ativan a remeron 15mg qhs Subjective Allergies: Coded Allergies: No Known Allergies (Unverified , 04/29/17) Subjective the pt was told by gi that he is doing well and has good prognosis. the pt has leukocytosis. otherwise improving. Objective Last 24 Hour Vital Signs Date Time Temp Pulse Resp B/P (MAP) Pulse Ox O2 Delivery O2 Flow Rate FiO2 05/10/17 21:31 86 120/73 05/10/17 20:39 98 Room Air 21 05/10/17 20:39 Room Air 21 05/10/17 20:00 98.1 86 21 120/73 92 Room Air 05/10/17 16:04 97.5 85 20 112/63 97 Nasal Cannula 3.0 05/10/17 13:31 82 107/65 05/10/17 11:24 97.5 82 20 107/65 94 Room Air 05/10/17 10:29 Room Air 21 05/10/17 08:39 97.0 75 20 119/73 97 Room Air 05/10/17 08:13 97 Room Air 21 05/10/17 06:09 80 121/69 05/10/17 04:00 97.7 80 22 121/69 95 Room Air 05/10/17 00:00 98.1 76 18 127/69 95 Nasal Cannula 3.0 Intake and Output 05/10/17 05/11/17 19:00 07:00 Intake Total 450 ml Output Total 620 ml Balance -170 ml Intake Oral 450 ml Output Urine Total 420 ml Stool Total 200 ml # Bowel Movements 1 1 Laboratory Tests 05/10/17 04:50: White Blood Count 22.6*H, Red Blood Count 2.48L, Hemoglobin 9.4L, Hematocrit 29.8L, Mean Corpuscular Volume 120H, Mean Corpuscular Hemoglobin 38.0H, Mean Corpuscular Hemoglobin Concent 31.6L, Red Cell Distribution Width 17.3H, Platelet Count 153, Mean Platelet Volume 8.4, Neutrophils (%) (Auto) , Lymphocytes (%) (Auto) , Monocytes (%) (Auto) , Eosinophils (%) (Auto) , Basophils (%) (Auto) , Differential Total Cells Counted 100, Neutrophils % ( Manual) 92H, Lymphocytes % (Manual) 3L, Monocytes % (Manual) 5, Eosinophils % ( Manual) 0, Basophils % (Manual) 0, Band Neutrophils 0, Platelet Estimate Adequate, Platelet Morphology Normal, Anisocytosis 1+, Sodium Level 140, Potassium Level 4.2, Chloride Level 106, Carbon Dioxide Level 25, Anion Gap 9, Blood Urea Nitrogen 31H, Creatinine 1.3, Estimat Glomerular Filtration Rate > 60 , Glucose Level 104, Uric Acid 4.6, Calcium Level 8.4L, Phosphorus Level 3.8, Total Bilirubin 20.6H, Direct Bilirubin 17.5H, Aspartate Amino Transf (AST/SGOT ) 152H, Alanine Aminotransferase (ALT/SGPT) 73, Alkaline Phosphatase 418H, Total Protein 4.8L, Albumin 1.5L, Globulin 3.3, Albumin/Globulin Ratio 0.5L Height (Feet): 5 Height (Inches): 8.00 Weight (Pounds): 205 General Appearance: no apparent distress, alert, overweight Neurologic: alert, oriented x 3, responsive, depressed affect Trino Kirby M.D. May 10, 2017 23:20
--- NOTE | 2017-05-10 23:53 | Infectious Diseases Prog Note ---
Assessment/Plan Problems: (1) Leukocytosis Assessment & Plan: Sepsis? Reactive due to steroids. Stable. Cultures NGTD. Status post a course of Unasyn for acalculous cholecystitis versus pneumonia versus UTI. Follow-up WBC. Overall clinically stable. Recheck cultures if T>100.4. (2) Liver cirrhosis, alcoholic (3) Ascites due to alcoholic cirrhosis (4) Jaundice of recent onset (5) Alcohol abuse Subjective Allergies: Coded Allergies: No Known Allergies (Unverified , 04/29/17) Objective Vital Signs Last 24 Hour Vital Signs Date Time Temp Pulse Resp B/P (MAP) Pulse Ox O2 Delivery O2 Flow Rate FiO2 05/10/17 21:31 86 120/73 05/10/17 20:39 98 Room Air 21 05/10/17 20:39 Room Air 21 05/10/17 20:00 98.1 86 21 120/73 92 Room Air 05/10/17 16:04 97.5 85 20 112/63 97 Nasal Cannula 3.0 05/10/17 13:31 82 107/65 05/10/17 11:24 97.5 82 20 107/65 94 Room Air 05/10/17 10:29 Room Air 21 05/10/17 08:39 97.0 75 20 119/73 97 Room Air 05/10/17 08:13 97 Room Air 21 05/10/17 06:09 80 121/69 05/10/17 04:00 97.7 80 22 121/69 95 Room Air 05/10/17 00:00 98.1 76 18 127/69 95 Nasal Cannula 3.0 Height (Feet): 5 Height (Inches): 8.00 Weight (Pounds): 205 Laboratory Tests Test 05/10/17 04:50 White Blood Count 22.6 K/UL (4.8-10.8) *H Red Blood Count 2.48 M/UL (4.70-6.10) L Hemoglobin 9.4 G/DL (14.2-18.0) L Hematocrit 29.8 % (42.0-52.0) L Mean Corpuscular Volume 120 FL (80-99) H Mean Corpuscular Hemoglobin 38.0 PG (27.0-31.0) H Mean Corpuscular Hemoglobin Concent 31.6 G/DL (32.0-36.0) L Red Cell Distribution Width 17.3 % (11.6-14.8) H Platelet Count 153 K/UL (150-450) Mean Platelet Volume 8.4 FL (6.5-10.1) Neutrophils (%) (Auto) % (45.0-75.0) Lymphocytes (%) (Auto) % (20.0-45.0) Monocytes (%) (Auto) % (1.0-10.0) Eosinophils (%) (Auto) % (0.0-3.0) Basophils (%) (Auto) % (0.0-2.0) Differential Total Cells Counted 100 Neutrophils % (Manual) 92 % (45-75) H Lymphocytes % (Manual) 3 % (20-45) L Monocytes % (Manual) 5 % (1-10) Eosinophils % (Manual) 0 % (0-3) Basophils % (Manual) 0 % (0-2) Band Neutrophils 0 % (0-8) Platelet Estimate Adequate Platelet Morphology Normal Anisocytosis 1+ Sodium Level 140 MMOL/L (136-145) Potassium Level 4.2 MMOL/L (3.5-5.1) Chloride Level 106 MMOL/L (98-107) Carbon Dioxide Level 25 MMOL/L (21-32) Anion Gap 9 mmol/L (5-15) Blood Urea Nitrogen 31 mg/dL (7-18) H Creatinine 1.3 MG/DL (0.55-1.30) Estimat Glomerular Filtration Rate > 60 mL/min (>60) Glucose Level 104 MG/DL (74-106) Uric Acid 4.6 MG/DL (2.6-7.2) Calcium Level 8.4 MG/DL (8.5-10.1) L Phosphorus Level 3.8 MG/DL (2.5-4.9) Total Bilirubin 20.6 MG/DL (0.2-1.0) H Direct Bilirubin 17.5 MG/DL (0.0-0.3) H Aspartate Amino Transf (AST/SGOT) 152 U/L (15-37) H Alanine Aminotransferase (ALT/SGPT) 73 U/L (12-78) Alkaline Phosphatase 418 U/L (46-116) H Total Protein 4.8 G/DL (6.4-8.2) L Albumin 1.5 G/DL (3.4-5.0) L Globulin 3.3 g/dL Albumin/Globulin Ratio 0.5 (1.0-2.7) L Current Medications Medications (Trade) Dose Ordered Sig/Leonard Route PRN Reason Start Time Stop Time Status Last Admin Dose Admin Lactulose (Cephulac) 30 gm DAILY ORAL 05/07/17 09:00 05/31/17 13:29 05/10/17 08:54 Lorazepam (Ativan 2mg/ml 1ml) 1 mg Q4H PRN IV For Anxiety 05/07/17 17:00 05/14/17 16:59 05/07/17 17:54 Mirtazapine (Remeron) 15 mg BEDTIME ORAL 05/07/17 21:00 06/06/17 20:59 05/10/17 20:37 Prednisone (predniSONE) 40 mg DAILY ORAL 05/08/17 09:00 06/07/17 08:59 05/10/17 08:56 Propranolol HCl (Inderal) 10 mg Q8HR ORAL 05/09/17 07:00 06/08/17 06:59 05/10/17 21:31 Rifaximin (Xifaxan) 550 mg EVERY 12 HOURS ORAL 05/06/17 21:00 06/04/17 21:29 05/10/17 20:38 PERCY DALTON May 10, 2017 23:53
[2017-05-11] VITALS (7 sets, daily range): BP systolic 106–120; BP diastolic 65–75
[2017-05-11] MEDS: Propranolol 10mg tab ORAL SCH ×3 (06:11→21:37)
[2017-05-11 07:49] LABS: MEAN CORPUSCULAR HEMOGLOBIN 38.1 PG (27.0-31.0); MEAN CORPUSCULAR HGB CONC 32.1 G/DL (32.0-36.0); MEAN CORPUSCULAR VOLUME 119 FL (80-99); MEAN PLATELET VOLUME 8.3 FL (6.5-10.1); PLATELET COUNT 159 K/UL (150-450); RED BLOOD COUNT 2.56 M/UL (4.70-6.10); RED CELL DISTRIBUTION WIDTH 16.5 % (11.6-14.8)
[2017-05-11 08:06] LABS: WHITE BLOOD COUNT 24.6 K/UL (4.8-10.8)
[2017-05-11 08:17] LABS: ANION GAP 9 mmol/L (5-15); CALCIUM 8.6 MG/DL (8.5-10.1); CARBON DIOXIDE 26 MMOL/L (21-32); CHLORIDE 108 MMOL/L (98-107); CREATININE 1.5 MG/DL (0.55-1.30); GLOMERULAR FILTRATION RATE 51.8 mL/min (>60); POTASSIUM 5.6 MMOL/L (3.5-5.1); SODIUM 142 MMOL/L (136-145)
[2017-05-11] MEDS: Lactulose 20gm/30ml UDC ORAL SCH (08:40)
--- NOTE | 2017-05-11 09:05 | General Progress Note ---
Assessment/Plan Assessment/Plan Assessment and Recs # Anemia of alcoholic myelosuppression, liver disease, end-stage, due to chronic disease ---> anemia w/u has been reviewed --> improving --> s/p transfusion, hgb goal >7 # Coagulopathy - 2/2 liver disease and underlying cirrhosis # Leukocytosis likely reactive from steroids # Thrombocytopenia is due to cirrhosis, liver involvement and splenomegaly # Hyperbilibirubinemia - 2/2 etoh abuse, liver cirrhosis # ETOH withdrawal # PNA # Jaundice of recent onset with severe hyperbilirubinemia # Ascites s/p multiple paracenteses Subjective Date patient seen: May 10, 2017 Constitutional: Denies: no symptoms, chills, diaphoresis, fever, malaise, weakness, other HEENT: Denies: no symptoms, eye pain, blurred vision, tearing, double vision, ear pain, ear discharge, nose pain, nose congestion, throat pain, throat swelling, mouth pain, mouth swelling, other Cardiovascular: Denies: no symptoms, chest pain, edema, irregular heart rate, lightheadedness, palpitations, syncope, other Respiratory: Denies: no symptoms, cough, orthopnea, shortness of breath, SOB with excertion, SOB at rest, sputum, stridor, wheezing, other Gastrointestinal/Abdominal: Denies: no symptoms, abdomen distended, abdominal pain, black stools, tarry stools, blood in stool, constipated, diarrhea, difficulty swallowing, nausea, poor appetite, poor fluid intake, rectal bleeding , vomiting, other Genitourinary: Denies: no symptoms, burning, discharge, frequency, flank pain, hematuria, incontinence, pain, urgency, other Neurologic/Psychiatric: Denies: no symptoms, anxiety, depressed, emotional problems, headache, numbness, paresthesia, pre-existing deficit, seizure, tingling, tremors, weakness, other Endocrine: Denies: no symptoms, excessive sweating, flushing, intolerance to cold, intolerance to heat, increased hunger, increased thirst, increased urine, unexplained weight gain, unexplained weight loss, other Allergies: Coded Allergies: No Known Allergies (Unverified , 04/29/17) Subjective no events, remains confused Objective Last 24 Hour Vital Signs Date Time Temp Pulse Resp B/P (MAP) Pulse Ox O2 Delivery O2 Flow Rate FiO2 05/11/17 08:13 97.8 78 21 116/70 98 Nasal Cannula 3.0 05/11/17 06:11 75 118/75 05/11/17 06:06 97.5 75 19 118/75 99 Nasal Cannula 3.0 21 05/11/17 03:34 97.0 78 19 113/69 94 Room Air 05/11/17 00:00 97.9 70 20 110/68 93 Room Air 05/10/17 21:31 86 120/73 05/10/17 20:39 98 Room Air 21 05/10/17 20:39 Room Air 21 05/10/17 20:00 98.1 86 21 120/73 92 Room Air 05/10/17 16:04 97.5 85 20 112/63 97 Nasal Cannula 3.0 05/10/17 13:31 82 107/65 05/10/17 11:24 97.5 82 20 107/65 94 Room Air 05/10/17 10:29 Room Air 21 Laboratory Tests 05/11/17 05:35: White Blood Count 24.6*H, Red Blood Count 2.56L, Hemoglobin 9.8L, Hematocrit 30.4L, Mean Corpuscular Volume 119H, Mean Corpuscular Hemoglobin 38.1H, Mean Corpuscular Hemoglobin Concent 32.1, Red Cell Distribution Width 16.5H, Platelet Count 159, Mean Platelet Volume 8.3, Neutrophils (%) (Auto) , Lymphocytes (%) (Auto) , Monocytes (%) (Auto) , Eosinophils (%) (Auto) , Basophils (%) (Auto) , Neutrophils % (Manual) [Pending], Lymphocytes % (Manual) [Pending], Platelet Estimate [Pending], Platelet Morphology [Pending], Sodium Level 142, Potassium Level 5.6H, Chloride Level 108H, Carbon Dioxide Level 26, Anion Gap 9, Blood Urea Nitrogen 38H, Creatinine 1.5H, Estimat Glomerular Filtration Rate 51.8, Glucose Level 120H, Calcium Level 8.6 Height (Feet): 5 Height (Inches): 8.00 Weight (Pounds): 205 General Appearance: no apparent distress EENT: normal ENT inspection Neck: supple Cardiovascular: normal rate Abdomen: normal bowel sounds Neurologic: abnormal gait Skin: warm/dry MERCED CHIN May 11, 2017 09:05
--- NOTE | 2017-05-11 09:38 | General Progress Note ---
Assessment/Plan Problem List: (1) Jaundice of recent onset ICD Codes: R17 - Unspecified jaundice SNOMED: 30112374 (2) Ascites due to alcoholic cirrhosis ICD Codes: K70.31 - Alcoholic cirrhosis of liver with ascites SNOMED: 9757577432932618 (3) etoh withdrawal (4) depression (5) Pneumonia ICD Codes: J18.9 - Pneumonia, unspecified organism SNOMED: 850377961 (6) Acalculous cholecystitis ICD Codes: K81.9 - Cholecystitis, unspecified SNOMED: 13420316 Status: stable, progressing, tolerating diet Assessment/Plan ot pt diet abx cbc bmp am Subjective Constitutional: Reports: weakness Allergies: Coded Allergies: No Known Allergies (Unverified , 04/29/17) All Systems: reviewed and negative except above Subjective sleepy in bed Objective Last 24 Hour Vital Signs Date Time Temp Pulse Resp B/P (MAP) Pulse Ox O2 Delivery O2 Flow Rate FiO2 05/11/17 08:13 97.8 78 21 116/70 98 Nasal Cannula 3.0 05/11/17 06:11 75 118/75 05/11/17 06:06 97.5 75 19 118/75 99 Nasal Cannula 3.0 21 05/11/17 03:34 97.0 78 19 113/69 94 Room Air 05/11/17 00:00 97.9 70 20 110/68 93 Room Air 05/10/17 21:31 86 120/73 05/10/17 20:39 98 Room Air 21 05/10/17 20:39 Room Air 21 05/10/17 20:00 98.1 86 21 120/73 92 Room Air 05/10/17 16:04 97.5 85 20 112/63 97 Nasal Cannula 3.0 05/10/17 13:31 82 107/65 05/10/17 11:24 97.5 82 20 107/65 94 Room Air 05/10/17 10:29 Room Air 21 Laboratory Tests 05/11/17 05:35: White Blood Count 24.6*H, Red Blood Count 2.56L, Hemoglobin 9.8L, Hematocrit 30.4L, Mean Corpuscular Volume 119H, Mean Corpuscular Hemoglobin 38.1H, Mean Corpuscular Hemoglobin Concent 32.1, Red Cell Distribution Width 16.5H, Platelet Count 159, Mean Platelet Volume 8.3, Neutrophils (%) (Auto) , Lymphocytes (%) (Auto) , Monocytes (%) (Auto) , Eosinophils (%) (Auto) , Basophils (%) (Auto) , Neutrophils % (Manual) [Pending], Lymphocytes % (Manual) [Pending], Platelet Estimate [Pending], Platelet Morphology [Pending], Sodium Level 142, Potassium Level 5.6H, Chloride Level 108H, Carbon Dioxide Level 26, Anion Gap 9, Blood Urea Nitrogen 38H, Creatinine 1.5H, Estimat Glomerular Filtration Rate 51.8, Glucose Level 120H, Calcium Level 8.6 Height (Feet): 5 Height (Inches): 8.00 Weight (Pounds): 205 General Appearance: confused EENT: TMs normal Neck: normal inspection Cardiovascular: normal peripheral pulses, normal rate, regular rhythm Respiratory/Chest: chest wall non-tender, lungs clear, normal breath sounds Abdomen: normal bowel sounds, non tender, soft Extremities: normal inspection Edema: no edema noted Arm (L), no edema noted Arm (R), no edema noted Leg (L), no edema noted Leg (R), no edema noted Pedal (L), no edema noted Pedal (R), no edema noted Generalized Neurologic: responsive, motor weakness Skin: normal pigmentation, warm/dry MEENA AGUIRRE May 11, 2017 09:38
--- NOTE | 2017-05-11 09:40 | General Progress Note ---
Assessment/Plan Problem List: (1) Jaundice of recent onset ICD Codes: R17 - Unspecified jaundice SNOMED: 41881968 (2) Ascites due to alcoholic cirrhosis ICD Codes: K70.31 - Alcoholic cirrhosis of liver with ascites SNOMED: 6652789459762069 (3) etoh withdrawal (4) depression (5) Pneumonia ICD Codes: J18.9 - Pneumonia, unspecified organism SNOMED: 339202154 (6) Acalculous cholecystitis ICD Codes: K81.9 - Cholecystitis, unspecified SNOMED: 60668912 Status: stable, progressing, tolerating diet Assessment/Plan ot pt diet abx cbc bmp am Subjective Constitutional: Reports: weakness Allergies: Coded Allergies: No Known Allergies (Unverified , 04/29/17) All Systems: reviewed and negative except above Subjective sleepy in bed Objective Last 24 Hour Vital Signs Date Time Temp Pulse Resp B/P (MAP) Pulse Ox O2 Delivery O2 Flow Rate FiO2 05/11/17 08:13 97.8 78 21 116/70 98 Nasal Cannula 3.0 05/11/17 06:11 75 118/75 05/11/17 06:06 97.5 75 19 118/75 99 Nasal Cannula 3.0 21 05/11/17 03:34 97.0 78 19 113/69 94 Room Air 05/11/17 00:00 97.9 70 20 110/68 93 Room Air 05/10/17 21:31 86 120/73 05/10/17 20:39 98 Room Air 21 05/10/17 20:39 Room Air 21 05/10/17 20:00 98.1 86 21 120/73 92 Room Air 05/10/17 16:04 97.5 85 20 112/63 97 Nasal Cannula 3.0 05/10/17 13:31 82 107/65 05/10/17 11:24 97.5 82 20 107/65 94 Room Air 05/10/17 10:29 Room Air 21 Laboratory Tests 05/11/17 05:35: White Blood Count 24.6*H, Red Blood Count 2.56L, Hemoglobin 9.8L, Hematocrit 30.4L, Mean Corpuscular Volume 119H, Mean Corpuscular Hemoglobin 38.1H, Mean Corpuscular Hemoglobin Concent 32.1, Red Cell Distribution Width 16.5H, Platelet Count 159, Mean Platelet Volume 8.3, Neutrophils (%) (Auto) , Lymphocytes (%) (Auto) , Monocytes (%) (Auto) , Eosinophils (%) (Auto) , Basophils (%) (Auto) , Neutrophils % (Manual) [Pending], Lymphocytes % (Manual) [Pending], Platelet Estimate [Pending], Platelet Morphology [Pending], Sodium Level 142, Potassium Level 5.6H, Chloride Level 108H, Carbon Dioxide Level 26, Anion Gap 9, Blood Urea Nitrogen 38H, Creatinine 1.5H, Estimat Glomerular Filtration Rate 51.8, Glucose Level 120H, Calcium Level 8.6 Height (Feet): 5 Height (Inches): 8.00 Weight (Pounds): 205 General Appearance: lethargic EENT: normal ENT inspection Neck: normal alignment Cardiovascular: normal peripheral pulses, normal rate, regular rhythm Respiratory/Chest: chest wall non-tender, lungs clear, normal breath sounds Abdomen: normal bowel sounds, non tender, soft Extremities: normal inspection Edema: no edema noted Arm (L), no edema noted Arm (R), no edema noted Leg (L), no edema noted Leg (R), no edema noted Pedal (L), no edema noted Pedal (R), no edema noted Generalized Neurologic: motor weakness Skin: normal pigmentation, warm/dry MEENA AGUIRRE May 11, 2017 09:40
[2017-05-11 11:18] LABS: LYMPHOCYTES % (MANUAL) 2 % (20-45); NEUTROPHILS % (MANUAL) 94 % (45-75); TOTAL CELLS COUNTED 100
[2017-05-11 11:19] LABS: BAND NEUTROPHILS % (MANUAL) 0 % (0-8); BASOPHILS % (MANUAL) 0 % (0-2); EOSINOPHILS % (MANUAL) 0 % (0-3); PLATELET ESTIMATE ADEQUATE; PLATELET MORPHOLOGY NORMAL
--- NOTE | 2017-05-11 11:28 | General Progress Note ---
Assessment/Plan Status: unchanged Status Narrative Cr up 1.5 Deeply jaundiced High K likely hemolysis Assessment/Plan status: renal failure on admit , likely hepatorenal- Cr now normalized low Na due to anasarca Low K Jaundice Anemia high Lipase High lactic low alb Plan; K , Phos , Mag as needed Urine studies per GI- transfuse as needed monitor renal parameters- monitor lytes- poor prognosis- DC planning if no other GI plans scheduled Subjective ROS Limited/Unobtainable: No Constitutional: Reports: malaise, weakness Allergies: Coded Allergies: No Known Allergies (Unverified , 04/29/17) Objective Last 24 Hour Vital Signs Date Time Temp Pulse Resp B/P (MAP) Pulse Ox O2 Delivery O2 Flow Rate FiO2 05/11/17 11:24 97.7 75 20 120/72 99 Nasal Cannula 3.0 05/11/17 08:13 97.8 78 21 116/70 98 Nasal Cannula 3.0 05/11/17 06:11 75 118/75 05/11/17 06:06 97.5 75 19 118/75 99 Nasal Cannula 3.0 21 05/11/17 03:34 97.0 78 19 113/69 94 Room Air 05/11/17 00:00 97.9 70 20 110/68 93 Room Air 05/10/17 21:31 86 120/73 05/10/17 20:39 98 Room Air 21 05/10/17 20:39 Room Air 21 05/10/17 20:00 98.1 86 21 120/73 92 Room Air 05/10/17 16:04 97.5 85 20 112/63 97 Nasal Cannula 3.0 05/10/17 13:31 82 107/65 Intake and Output 05/11/17 05/12/17 19:00 07:00 # Bowel Movements 1 Laboratory Tests 05/11/17 05:35: White Blood Count 24.6*H, Red Blood Count 2.56L, Hemoglobin 9.8L, Hematocrit 30.4L, Mean Corpuscular Volume 119H, Mean Corpuscular Hemoglobin 38.1H, Mean Corpuscular Hemoglobin Concent 32.1, Red Cell Distribution Width 16.5H, Platelet Count 159, Mean Platelet Volume 8.3, Neutrophils (%) (Auto) , Lymphocytes (%) (Auto) , Monocytes (%) (Auto) , Eosinophils (%) (Auto) , Basophils (%) (Auto) , Differential Total Cells Counted 100, Neutrophils % ( Manual) 94H, Lymphocytes % (Manual) 2L, Monocytes % (Manual) 4, Eosinophils % ( Manual) 0, Basophils % (Manual) 0, Band Neutrophils 0, Platelet Estimate Adequate, Platelet Morphology Normal, Sodium Level 142, Potassium Level 5.6H, Chloride Level 108H, Carbon Dioxide Level 26, Anion Gap 9, Blood Urea Nitrogen 38H, Creatinine 1.5H, Estimat Glomerular Filtration Rate 51.8, Glucose Level 120H, Calcium Level 8.6 Height (Feet): 5 Height (Inches): 8.00 Weight (Pounds): 205 General Appearance: other Cardiovascular: normal rate Respiratory/Chest: decreased breath sounds Abdomen: distended Objective MIKAELA Mcdowell May 11, 2017 11:28
--- NOTE | 2017-05-11 15:31 | Pulmonology Progress Note ---
Assessment/Plan Assessment/Plan 1. Respiratory failure. 2. Liver failure. 3. Cirrhosis with ascites. 4. Alcoholism. 5. Pulmonary infiltrates and effusions, probably due to ascites 6. UTI 7. peripheral edema titrate o2 nebs IV ABx and clearance per ID needs definitive procedure for recurring fluid,defer to GI po as tolerated aspiration precautions oob with assistance Subjective Constitutional: Reports: no symptoms Respiratory: Reports: no symptoms Cardiovascular: Reports: no symptoms Gastrointestinal/Abdominal: Reports: no symptoms Genitourinary: Reports: no symptoms Neurologic: Reports: no symptoms Skin: Reports: other - icteric Allergies: Coded Allergies: No Known Allergies (Unverified , 04/29/17) Subjective seen and examined less confused doing better today ambulating no fever tolerating po awake moves extremities tolerating pt remains on o2, desaturates when abulting no cp nv or bleeding Objective Last 24 Hour Vital Signs Date Time Temp Pulse Resp B/P (MAP) Pulse Ox O2 Delivery O2 Flow Rate FiO2 05/11/17 13:54 75 120/72 05/11/17 11:24 97.7 75 20 120/72 99 Nasal Cannula 3.0 05/11/17 08:13 97.8 78 21 116/70 98 Nasal Cannula 3.0 05/11/17 06:11 75 118/75 05/11/17 06:06 97.5 75 19 118/75 99 Nasal Cannula 3.0 21 05/11/17 03:34 97.0 78 19 113/69 94 Room Air 05/11/17 00:00 97.9 70 20 110/68 93 Room Air 05/10/17 21:31 86 120/73 05/10/17 20:39 98 Room Air 21 05/10/17 20:39 Room Air 21 05/10/17 20:00 98.1 86 21 120/73 92 Room Air 05/10/17 16:04 97.5 85 20 112/63 97 Nasal Cannula 3.0 Intake and Output 05/11/17 05/12/17 19:00 07:00 # Bowel Movements 1 General Appearance: WD/WN HEENT: other - jaundice Respiratory/Chest: normal breath sounds, no respiratory distress Cardiovascular: regular rhythm Abdomen: soft, non tender, other - ascites Skin: no rash, no lesions, other - jaundice Neurologic/Psychiatric: alert, oriented x 3 Lymphatic: no neck adenopathy Musculoskeletal: no effusion Laboratory Tests 05/11/17 05:35: White Blood Count 24.6*H, Red Blood Count 2.56L, Hemoglobin 9.8L, Hematocrit 30.4L, Mean Corpuscular Volume 119H, Mean Corpuscular Hemoglobin 38.1H, Mean Corpuscular Hemoglobin Concent 32.1, Red Cell Distribution Width 16.5H, Platelet Count 159, Mean Platelet Volume 8.3, Neutrophils (%) (Auto) , Lymphocytes (%) (Auto) , Monocytes (%) (Auto) , Eosinophils (%) (Auto) , Basophils (%) (Auto) , Differential Total Cells Counted 100, Neutrophils % ( Manual) 94H, Lymphocytes % (Manual) 2L, Monocytes % (Manual) 4, Eosinophils % ( Manual) 0, Basophils % (Manual) 0, Band Neutrophils 0, Platelet Estimate Adequate, Platelet Morphology Normal, Sodium Level 142, Potassium Level 5.6H, Chloride Level 108H, Carbon Dioxide Level 26, Anion Gap 9, Blood Urea Nitrogen 38H, Creatinine 1.5H, Estimat Glomerular Filtration Rate 51.8, Glucose Level 120H, Calcium Level 8.6 Current Medications Medications (Trade) Dose Ordered Sig/Leonard Route PRN Reason Start Time Stop Time Status Last Admin Dose Admin Lactulose (Cephulac) 30 gm DAILY ORAL 05/07/17 09:00 05/31/17 13:29 05/11/17 08:40 Lorazepam (Ativan 2mg/ml 1ml) 1 mg Q4H PRN IV For Anxiety 05/07/17 17:00 05/14/17 16:59 05/07/17 17:54 Mirtazapine (Remeron) 15 mg BEDTIME ORAL 05/07/17 21:00 06/06/17 20:59 05/10/17 20:37 Prednisone (predniSONE) 40 mg DAILY ORAL 05/08/17 09:00 06/07/17 08:59 05/11/17 08:40 Propranolol HCl (Inderal) 10 mg Q8HR ORAL 05/09/17 07:00 06/08/17 06:59 05/11/17 13:54 Rifaximin (Xifaxan) 550 mg EVERY 12 HOURS ORAL 05/06/17 21:00 06/04/17 21:29 05/11/17 08:40 KELSEY CABAN DO May 11, 2017 15:31
--- NOTE | 2017-05-11 19:22 | General Progress Note ---
Assessment/Plan Assessment/Plan Assessment - Etoh Hepatitis - Liver failure - coagulopathy - Ascites - Elevated creatinine concerning Recommendations - continue steroids - xifaxan and lactulose - follow labs - trial of albumin - check urine Na Subjective Allergies: Coded Allergies: No Known Allergies (Unverified , 04/29/17) Subjective Feels OK family at bedside no new complaints Cr more elevated today Objective Last 24 Hour Vital Signs Date Time Temp Pulse Resp B/P (MAP) Pulse Ox O2 Delivery O2 Flow Rate FiO2 05/11/17 16:07 97.9 75 21 106/65 98 Nasal Cannula 3.0 05/11/17 13:54 75 120/72 05/11/17 11:24 97.7 75 20 120/72 99 Nasal Cannula 3.0 05/11/17 08:13 97.8 78 21 116/70 98 Nasal Cannula 3.0 05/11/17 06:11 75 118/75 05/11/17 06:06 97.5 75 19 118/75 99 Nasal Cannula 3.0 21 05/11/17 03:34 97.0 78 19 113/69 94 Room Air 05/11/17 00:00 97.9 70 20 110/68 93 Room Air 05/10/17 21:31 86 120/73 05/10/17 20:39 98 Room Air 21 05/10/17 20:39 Room Air 21 05/10/17 20:00 98.1 86 21 120/73 92 Room Air Intake and Output 05/11/17 05/12/17 19:00 07:00 Intake Total 520 ml Output Total 500 ml Balance 20 ml Intake Oral 520 ml Output Urine Total 500 ml # Bowel Movements 1 Laboratory Tests 05/11/17 05:35: White Blood Count 24.6*H, Red Blood Count 2.56L, Hemoglobin 9.8L, Hematocrit 30.4L, Mean Corpuscular Volume 119H, Mean Corpuscular Hemoglobin 38.1H, Mean Corpuscular Hemoglobin Concent 32.1, Red Cell Distribution Width 16.5H, Platelet Count 159, Mean Platelet Volume 8.3, Neutrophils (%) (Auto) , Lymphocytes (%) (Auto) , Monocytes (%) (Auto) , Eosinophils (%) (Auto) , Basophils (%) (Auto) , Differential Total Cells Counted 100, Neutrophils % ( Manual) 94H, Lymphocytes % (Manual) 2L, Monocytes % (Manual) 4, Eosinophils % ( Manual) 0, Basophils % (Manual) 0, Band Neutrophils 0, Platelet Estimate Adequate, Platelet Morphology Normal, Sodium Level 142, Potassium Level 5.6H, Chloride Level 108H, Carbon Dioxide Level 26, Anion Gap 9, Blood Urea Nitrogen 38H, Creatinine 1.5H, Estimat Glomerular Filtration Rate 51.8, Glucose Level 120H, Calcium Level 8.6 Height (Feet): 5 Height (Inches): 8.00 Weight (Pounds): 205 Objective Jaundiced NCAT supple CTA RRR soft NT ND no edema DEEPA GARCIA May 11, 2017 19:22
--- NOTE | 2017-05-11 20:36 | Cardiology Progress Note ---
Assessment/Plan Assessment/Plan 1. Sinus tachycardia, resolved, due to intravascular volume depletion due to hypo-albuminemia, continue Inderal. 3. Mild pulmonary HTN. 4. Chronic liver disease. Subjective Subjective No cardiac events No on telemetry bed. Objective Last 24 Hour Vital Signs Date Time Temp Pulse Resp B/P (MAP) Pulse Ox O2 Delivery O2 Flow Rate FiO2 05/11/17 16:07 97.9 75 21 106/65 98 Nasal Cannula 3.0 05/11/17 13:54 75 120/72 05/11/17 11:24 97.7 75 20 120/72 99 Nasal Cannula 3.0 05/11/17 08:13 97.8 78 21 116/70 98 Nasal Cannula 3.0 05/11/17 06:11 75 118/75 05/11/17 06:06 97.5 75 19 118/75 99 Nasal Cannula 3.0 21 05/11/17 03:34 97.0 78 19 113/69 94 Room Air 05/11/17 00:00 97.9 70 20 110/68 93 Room Air 05/10/17 21:31 86 120/73 05/10/17 20:39 98 Room Air 21 05/10/17 20:39 Room Air 21 Intake and Output 05/11/17 05/12/17 19:00 07:00 Intake Total 520 ml Output Total 500 ml Balance 20 ml Intake Oral 520 ml Output Urine Total 500 ml # Bowel Movements 1 2D Echo: LVEF at 55%, RVSP 45 mmHg Laboratory Tests Test 05/11/17 05:35 White Blood Count 24.6 K/UL (4.8-10.8) *H Red Blood Count 2.56 M/UL (4.70-6.10) L Hemoglobin 9.8 G/DL (14.2-18.0) L Hematocrit 30.4 % (42.0-52.0) L Mean Corpuscular Volume 119 FL (80-99) H Mean Corpuscular Hemoglobin 38.1 PG (27.0-31.0) H Mean Corpuscular Hemoglobin Concent 32.1 G/DL (32.0-36.0) Red Cell Distribution Width 16.5 % (11.6-14.8) H Platelet Count 159 K/UL (150-450) Mean Platelet Volume 8.3 FL (6.5-10.1) Neutrophils (%) (Auto) % (45.0-75.0) Lymphocytes (%) (Auto) % (20.0-45.0) Monocytes (%) (Auto) % (1.0-10.0) Eosinophils (%) (Auto) % (0.0-3.0) Basophils (%) (Auto) % (0.0-2.0) Differential Total Cells Counted 100 Neutrophils % (Manual) 94 % (45-75) H Lymphocytes % (Manual) 2 % (20-45) L Monocytes % (Manual) 4 % (1-10) Eosinophils % (Manual) 0 % (0-3) Basophils % (Manual) 0 % (0-2) Band Neutrophils 0 % (0-8) Platelet Estimate Adequate Platelet Morphology Normal Sodium Level 142 MMOL/L (136-145) Potassium Level 5.6 MMOL/L (3.5-5.1) H Chloride Level 108 MMOL/L (98-107) H Carbon Dioxide Level 26 MMOL/L (21-32) Anion Gap 9 mmol/L (5-15) Blood Urea Nitrogen 38 mg/dL (7-18) H Creatinine 1.5 MG/DL (0.55-1.30) H Estimat Glomerular Filtration Rate 51.8 mL/min (>60) Glucose Level 120 MG/DL (74-106) H Calcium Level 8.6 MG/DL (8.5-10.1) Objective HEENT: Head is normocephalic. PERRLA, EOMI. Eyes show scleral icterus. NECK: JVD is negative, no carotid bruit, carotid upstroke 2+ B/L LUNGS: Decreased breath sounds in the bases. CARDIAC: Rhythm is regular. Tachycardia, no murmurs, gallops or rubs. ABDOMEN: Distended, soft and nontender. There is a fluid wave noted. EXTREMITIES: No clubbing or cyanosis. There is 2+ edema. YAQUELIN HARDY May 11, 2017 20:36
--- NOTE | 2017-05-11 22:10 | General Progress Note ---
Assessment/Plan Assessment/Plan Assessment and Recs # Anemia of alcoholic myelosuppression, liver disease, end-stage, due to chronic disease ---> anemia w/u has been reviewed --> improving --> s/p transfusion, hgb goal >7 # Coagulopathy - 2/2 liver disease and underlying cirrhosis # Leukocytosis likely reactive from steroids # Thrombocytopenia is due to cirrhosis, liver involvement and splenomegaly # Hyperbilibirubinemia - 2/2 etoh abuse, liver cirrhosis # ETOH withdrawal # PNA # Jaundice of recent onset with severe hyperbilirubinemia # Ascites s/p multiple paracenteses Subjective Constitutional: Reports: no symptoms HEENT: Reports: no symptoms Cardiovascular: Reports: no symptoms Respiratory: Reports: SOB with excertion Gastrointestinal/Abdominal: Reports: no symptoms Genitourinary: Reports: no symptoms Neurologic/Psychiatric: Reports: no symptoms Endocrine: Reports: no symptoms Hematologic/Lymphatic: Reports: no symptoms Allergies: Coded Allergies: No Known Allergies (Unverified , 04/29/17) Subjective no complaints Objective Last 24 Hour Vital Signs Date Time Temp Pulse Resp B/P (MAP) Pulse Ox O2 Delivery O2 Flow Rate FiO2 05/11/17 21:37 75 117/69 05/11/17 20:00 97.0 75 20 117/69 92 Room Air 05/11/17 16:07 97.9 75 21 106/65 98 Nasal Cannula 3.0 05/11/17 13:54 75 120/72 05/11/17 11:24 97.7 75 20 120/72 99 Nasal Cannula 3.0 05/11/17 08:13 97.8 78 21 116/70 98 Nasal Cannula 3.0 05/11/17 06:11 75 118/75 05/11/17 06:06 97.5 75 19 118/75 99 Nasal Cannula 3.0 21 05/11/17 03:34 97.0 78 19 113/69 94 Room Air 05/11/17 00:00 97.9 70 20 110/68 93 Room Air Intake and Output 05/11/17 05/12/17 19:00 07:00 Intake Total 520 ml Output Total 500 ml Balance 20 ml Intake Oral 520 ml Output Urine Total 500 ml # Bowel Movements 1 Laboratory Tests 05/11/17 05:35: White Blood Count 24.6*H, Red Blood Count 2.56L, Hemoglobin 9.8L, Hematocrit 30.4L, Mean Corpuscular Volume 119H, Mean Corpuscular Hemoglobin 38.1H, Mean Corpuscular Hemoglobin Concent 32.1, Red Cell Distribution Width 16.5H, Platelet Count 159, Mean Platelet Volume 8.3, Neutrophils (%) (Auto) , Lymphocytes (%) (Auto) , Monocytes (%) (Auto) , Eosinophils (%) (Auto) , Basophils (%) (Auto) , Differential Total Cells Counted 100, Neutrophils % ( Manual) 94H, Lymphocytes % (Manual) 2L, Monocytes % (Manual) 4, Eosinophils % ( Manual) 0, Basophils % (Manual) 0, Band Neutrophils 0, Platelet Estimate Adequate, Platelet Morphology Normal, Sodium Level 142, Potassium Level 5.6H, Chloride Level 108H, Carbon Dioxide Level 26, Anion Gap 9, Blood Urea Nitrogen 38H, Creatinine 1.5H, Estimat Glomerular Filtration Rate 51.8, Glucose Level 120H, Calcium Level 8.6 Height (Feet): 5 Height (Inches): 8.00 Weight (Pounds): 205 General Appearance: WD/WN EENT: normal ENT inspection Neck: normal alignment Cardiovascular: no gallop/murmur Respiratory/Chest: chest wall non-tender Skin: normal pigmentation MERCED CHIN May 11, 2017 22:10
--- NOTE | 2017-05-11 23:32 | General Progress Note ---
Assessment/Plan Assessment/Plan encephalopathy improving alcohol dependence -cont ativan a remeron 15mg qhs Subjective Date patient seen: May 11, 2017 Allergies: Coded Allergies: No Known Allergies (Unverified , 04/29/17) Subjective the pt was told by gi that he is doing well and has good prognosis. the pt has leukocytosis. otherwise improving. Objective Last 24 Hour Vital Signs Date Time Temp Pulse Resp B/P (MAP) Pulse Ox O2 Delivery O2 Flow Rate FiO2 05/11/17 21:37 75 117/69 05/11/17 20:00 97.0 75 20 117/69 92 Room Air 05/11/17 16:07 97.9 75 21 106/65 98 Nasal Cannula 3.0 05/11/17 13:54 75 120/72 05/11/17 11:24 97.7 75 20 120/72 99 Nasal Cannula 3.0 05/11/17 08:13 97.8 78 21 116/70 98 Nasal Cannula 3.0 05/11/17 06:11 75 118/75 05/11/17 06:06 97.5 75 19 118/75 99 Nasal Cannula 3.0 21 05/11/17 03:34 97.0 78 19 113/69 94 Room Air 05/11/17 00:00 97.9 70 20 110/68 93 Room Air Intake and Output 05/11/17 05/12/17 19:00 07:00 Intake Total 520 ml Output Total 500 ml Balance 20 ml Intake Oral 520 ml Output Urine Total 500 ml # Bowel Movements 1 Laboratory Tests 05/11/17 05:35: White Blood Count 24.6*H, Red Blood Count 2.56L, Hemoglobin 9.8L, Hematocrit 30.4L, Mean Corpuscular Volume 119H, Mean Corpuscular Hemoglobin 38.1H, Mean Corpuscular Hemoglobin Concent 32.1, Red Cell Distribution Width 16.5H, Platelet Count 159, Mean Platelet Volume 8.3, Neutrophils (%) (Auto) , Lymphocytes (%) (Auto) , Monocytes (%) (Auto) , Eosinophils (%) (Auto) , Basophils (%) (Auto) , Differential Total Cells Counted 100, Neutrophils % ( Manual) 94H, Lymphocytes % (Manual) 2L, Monocytes % (Manual) 4, Eosinophils % ( Manual) 0, Basophils % (Manual) 0, Band Neutrophils 0, Platelet Estimate Adequate, Platelet Morphology Normal, Sodium Level 142, Potassium Level 5.6H, Chloride Level 108H, Carbon Dioxide Level 26, Anion Gap 9, Blood Urea Nitrogen 38H, Creatinine 1.5H, Estimat Glomerular Filtration Rate 51.8, Glucose Level 120H, Calcium Level 8.6 Height (Feet): 5 Height (Inches): 8.00 Weight (Pounds): 205 Trino Kirby M.D. May 11, 2017 23:32
[2017-05-12] VITALS: BP 112/65
[2017-05-12 04:00] VITALS: BP_SYST 108; BP_SYST 112; BP_DIAS 60; BP_DIAS 71
[2017-05-12] MEDS: Propranolol 10mg tab ORAL SCH (06:00)
[2017-05-12 07:51] LABS: ANION GAP 7 mmol/L (5-15); CALCIUM 8.7 MG/DL (8.5-10.1); CARBON DIOXIDE 26 MMOL/L (21-32); CHLORIDE 108 MMOL/L (98-107); CREATININE 1.6 MG/DL (0.55-1.30); GLOMERULAR FILTRATION RATE 48.1 mL/min (>60); POTASSIUM 5.5 MMOL/L (3.5-5.1); SODIUM 141 MMOL/L (136-145)
[2017-05-12 08:00] VITALS: BP 114/56
[2017-05-12 08:08] LABS: MEAN CORPUSCULAR HEMOGLOBIN 37.9 PG (27.0-31.0); MEAN CORPUSCULAR HGB CONC 32.2 G/DL (32.0-36.0); MEAN CORPUSCULAR VOLUME 118 FL (80-99); MEAN PLATELET VOLUME 8.3 FL (6.5-10.1); PLATELET COUNT 183 K/UL (150-450); RED BLOOD COUNT 2.54 M/UL (4.70-6.10)
[2017-05-12 08:10] LABS: WHITE BLOOD COUNT 23.4 K/UL (4.8-10.8)
[2017-05-12] MEDS: Lactulose 20gm/30ml UDC ORAL SCH (08:35)
[2017-05-12 09:07] LABS: ALANINE AMINOTRANSFERASE 84 U/L (12-78); ASPARTATE AMINO TRANSFERASE 167 U/L (15-37); BILIRUBIN,DIRECT 17.6 MG/DL (0.0-0.3); TOTAL PROTEIN 4.9 G/DL (6.4-8.2)
[2017-05-12 09:47] LABS: BAND NEUTROPHILS % (MANUAL) 0 % (0-8); BASOPHILS % (MANUAL) 0 % (0-2); EOSINOPHILS % (MANUAL) 0 % (0-3); LYMPHOCYTES % (MANUAL) 2 % (20-45); NEUTROPHILS % (MANUAL) 92 % (45-75); PLATELET ESTIMATE ADEQUATE; PLATELET MORPHOLOGY NORMAL; TOTAL CELLS COUNTED 100
[2017-05-12 09:48] LABS: ANISOCYTOSIS 1+; HYPOCHROMASIA 1+; MACROCYTES 1+
[2017-05-12 10:13] LABS: AMYLASE 167 U/L (25-115); LIPASE 1165 U/L (73-393)
--- NOTE | 2017-05-12 10:22 | GI Progress Note ---
Assessment/Plan Problems: (1) Jaundice of recent onset ICD Codes: R17 - Unspecified jaundice SNOMED: 14607088 (2) etoh withdrawal (3) depression (4) Pneumonia ICD Codes: J18.9 - Pneumonia, unspecified organism SNOMED: 591720956 (5) Acalculous cholecystitis ICD Codes: K81.9 - Cholecystitis, unspecified SNOMED: 03342711 (6) Ascites due to alcoholic cirrhosis ICD Codes: K70.31 - Alcoholic cirrhosis of liver with ascites SNOMED: 8966150151837355 (7) Alcohol abuse ICD Codes: F10.10 - Alcohol abuse, uncomplicated SNOMED: 38083058 Status: unchanged Status Narrative Discussed with Dr. Daly. Assessment/Plan s/p paracentesis yielding 3.1 liters of bright yellow fluid. venous duplex r/o DVT given BLE edema dc propranolol restart midodrine and octreotide given elevated creatinine elevated ammonia >> lactulose + Xifaxan low sodium diet prednisone 40mg x 28 days, start taper on 05/27/17. monitor LFTs not transplant candidate given active drinking ppi fu labs patient will be followed weekly by us in clinic Subjective Subjective worked with PT feels better overall Objective Last 24 Hour Vital Signs Date Time Temp Pulse Resp B/P (MAP) Pulse Ox O2 Delivery O2 Flow Rate FiO2 05/12/17 08:00 97.3 84 16 114/56 95 Nasal Cannula 2.0 05/12/17 06:00 79 108/71 05/12/17 04:00 98.2 79 20 108/71 91 Room Air 05/12/17 00:00 97.3 74 20 112/65 93 Room Air 05/11/17 21:37 75 117/69 05/11/17 20:00 97.0 75 20 117/69 92 Room Air 05/11/17 16:07 97.9 75 21 106/65 98 Nasal Cannula 3.0 05/11/17 13:54 75 120/72 05/11/17 11:24 97.7 75 20 120/72 99 Nasal Cannula 3.0 Laboratory Tests Test 05/12/17 05:20 White Blood Count 23.4 K/UL (4.8-10.8) *H Red Blood Count 2.54 M/UL (4.70-6.10) L Hemoglobin 9.6 G/DL (14.2-18.0) L Hematocrit 29.9 % (42.0-52.0) L Mean Corpuscular Volume 118 FL (80-99) H Mean Corpuscular Hemoglobin 37.9 PG (27.0-31.0) H Mean Corpuscular Hemoglobin Concent 32.2 G/DL (32.0-36.0) Red Cell Distribution Width 17.0 % (11.6-14.8) H Platelet Count 183 K/UL (150-450) Mean Platelet Volume 8.3 FL (6.5-10.1) Neutrophils (%) (Auto) % (45.0-75.0) Lymphocytes (%) (Auto) % (20.0-45.0) Monocytes (%) (Auto) % (1.0-10.0) Eosinophils (%) (Auto) % (0.0-3.0) Basophils (%) (Auto) % (0.0-2.0) Differential Total Cells Counted 100 Neutrophils % (Manual) 92 % (45-75) H Lymphocytes % (Manual) 2 % (20-45) L Monocytes % (Manual) 6 % (1-10) Eosinophils % (Manual) 0 % (0-3) Basophils % (Manual) 0 % (0-2) Band Neutrophils 0 % (0-8) Platelet Estimate Adequate Platelet Morphology Normal Hypochromasia 1+ Anisocytosis 1+ Macrocytosis 1+ Sodium Level 141 MMOL/L (136-145) Potassium Level 5.5 MMOL/L (3.5-5.1) H Chloride Level 108 MMOL/L (98-107) H Carbon Dioxide Level 26 MMOL/L (21-32) Anion Gap 7 mmol/L (5-15) Blood Urea Nitrogen 38 mg/dL (7-18) H Creatinine 1.6 MG/DL (0.55-1.30) H Estimat Glomerular Filtration Rate 48.1 mL/min (>60) Glucose Level 99 MG/DL (74-106) Calcium Level 8.7 MG/DL (8.5-10.1) Total Bilirubin 20.3 MG/DL (0.2-1.0) H Direct Bilirubin 17.6 MG/DL (0.0-0.3) H Aspartate Amino Transf (AST/SGOT) 167 U/L (15-37) H Alanine Aminotransferase (ALT/SGPT) 84 U/L (12-78) H Alkaline Phosphatase 458 U/L (46-116) H Total Protein 4.9 G/DL (6.4-8.2) L Albumin 1.4 G/DL (3.4-5.0) L Amylase Level 167 U/L (25-115) H Lipase 1165 U/L (73-393) H Height (Feet): 5 Height (Inches): 8.00 Weight (Pounds): 205 General Appearance: WD/WN, no apparent distress, alert Cardiovascular: normal rate Respiratory/Chest: normal breath sounds, no respiratory distress Abdominal Exam: normal bowel sounds, non tender, soft Extremities: other - BLE 2+ edema Objective Jaundice Danay Grady N.P. May 12, 2017 10:22
--- NOTE | 2017-05-12 10:26 | Diagnostic Imaging Report ---
Indication: SOB Technique: One view of the chest Comparison: 05/05/2017 Findings: Inspiration is suboptimal but slightly better than on the prior study. There is some pleural fluid on the left. There is diffuse interstitial congestion which appears slightly improved.. Impression: Improved but persistent interstitial congestion Slightly improved aeration, over 7 days Persistent small left pleural effusion
--- NOTE | 2017-05-12 10:38 | General Progress Note ---
Assessment/Plan Status: unchanged Status Narrative Cr higher- K 5.5 Assessment/Plan status: renal failure on admit , likely hepatorenal- Cr now normalized low Na due to anasarca Low K Jaundice Anemia high Lipase High lactic low alb Plan; one liter D5 Urine studies per GI- transfuse as needed monitor renal parameters- monitor lytes- poor prognosis- DC planning if no other GI plans scheduled Subjective ROS Limited/Unobtainable: No Constitutional: Reports: malaise Allergies: Coded Allergies: No Known Allergies (Unverified , 04/29/17) Objective Last 24 Hour Vital Signs Date Time Temp Pulse Resp B/P (MAP) Pulse Ox O2 Delivery O2 Flow Rate FiO2 05/12/17 08:00 97.3 84 16 114/56 95 Nasal Cannula 2.0 05/12/17 06:00 79 108/71 05/12/17 04:00 98.2 79 20 108/71 91 Room Air 05/12/17 00:00 97.3 74 20 112/65 93 Room Air 05/11/17 21:37 75 117/69 05/11/17 20:00 97.0 75 20 117/69 92 Room Air 05/11/17 16:07 97.9 75 21 106/65 98 Nasal Cannula 3.0 05/11/17 13:54 75 120/72 05/11/17 11:24 97.7 75 20 120/72 99 Nasal Cannula 3.0 Laboratory Tests 05/12/17 05:20: White Blood Count 23.4*H, Red Blood Count 2.54L, Hemoglobin 9.6L, Hematocrit 29.9L, Mean Corpuscular Volume 118H, Mean Corpuscular Hemoglobin 37.9H, Mean Corpuscular Hemoglobin Concent 32.2, Red Cell Distribution Width 17.0H, Platelet Count 183, Mean Platelet Volume 8.3, Neutrophils (%) (Auto) , Lymphocytes (%) (Auto) , Monocytes (%) (Auto) , Eosinophils (%) (Auto) , Basophils (%) (Auto) , Differential Total Cells Counted 100, Neutrophils % ( Manual) 92H, Lymphocytes % (Manual) 2L, Monocytes % (Manual) 6, Eosinophils % ( Manual) 0, Basophils % (Manual) 0, Band Neutrophils 0, Platelet Estimate Adequate, Platelet Morphology Normal, Hypochromasia 1+, Anisocytosis 1+, Macrocytosis 1+, Sodium Level 141, Potassium Level 5.5H, Chloride Level 108H, Carbon Dioxide Level 26, Anion Gap 7, Blood Urea Nitrogen 38H, Creatinine 1.6H, Estimat Glomerular Filtration Rate 48.1, Glucose Level 99, Calcium Level 8.7, Total Bilirubin 20.3H, Direct Bilirubin 17.6H, Aspartate Amino Transf (AST/SGOT ) 167H, Alanine Aminotransferase (ALT/SGPT) 84H, Alkaline Phosphatase 458H, Total Protein 4.9L, Albumin 1.4L, Amylase Level 167H, Lipase 1165H Height (Feet): 5 Height (Inches): 8.00 Weight (Pounds): 205 General Appearance: no apparent distress, lethargic Respiratory/Chest: decreased breath sounds Abdomen: distended Edema: 2+ Arm (L), 2+ Arm (R), 2+ Leg (L), 2+ Leg (R), 2+ Pedal (L), 2+ Pedal ( R), 2+ Generalized Objective MIKAELA Mcdowell May 12, 2017 10:38
[2017-05-12 12:00] VITALS: BP 110/69
[2017-05-12] MEDS ORDERED: LORazepam 1mg tab ORAL PRN (12:15)
--- NOTE | 2017-05-12 12:20 | Cardiology Report ---
APPROVED REPORT EKG Measurement Heart [id number] Sinus tachycardia Non Specific ST abn. Abnormal ECG
[2017-05-12 12:37] LABS: APPEARANCE,URINE CLEAR; KETONES,URINE NEGATIVE (NEGATIVE); LEUKOCYTE ESTERASE ,URINE 1+ (NEGATIVE); NITRITE,URINE POSITIVE (NEGATIVE); PH,URINE 5 (4.5-8.0); PROTEIN,URINE 1+ (NEGATIVE); UROBILINOGEN,URINE 8 MG/DL (0.0-1.0)
[2017-05-12 12:51] LABS: BACTERIA,URINE FEW /HPF; ICTOTEST POSITIVE; SQUAMOUS EPITHELIAL CELL,UR OCCASIONAL /LPF (NONE/OCC)
--- NOTE | 2017-05-12 12:52 | Pulmonology Progress Note ---
Assessment/Plan Assessment/Plan 1. Respiratory failure, resolved 2. Liver failure. 3. Cirrhosis with ascites. 4. Alcoholism. 5. Pulmonary infiltrates and effusions, due to ascites, volume overload trial off O2 No distress f/u CXR noted, improved Subjective Respiratory: Denies: shortness of breath Allergies: Coded Allergies: No Known Allergies (Unverified , 04/29/17) Objective Last 24 Hour Vital Signs Date Time Temp Pulse Resp B/P (MAP) Pulse Ox O2 Delivery O2 Flow Rate FiO2 05/12/17 08:00 97.3 84 16 114/56 95 Nasal Cannula 2.0 05/12/17 06:00 79 108/71 05/12/17 04:00 98.2 79 20 108/71 91 Room Air 05/12/17 00:00 97.3 74 20 112/65 93 Room Air 05/11/17 21:37 75 117/69 05/11/17 20:00 97.0 75 20 117/69 92 Room Air 05/11/17 16:07 97.9 75 21 106/65 98 Nasal Cannula 3.0 05/11/17 13:54 75 120/72 Objective jaundice General Appearance: no acute distress Respiratory/Chest: lungs clear, decreased breath sounds Cardiovascular: normal rate Extremities: other - anasarca Laboratory Tests 05/12/17 05:20: White Blood Count 23.4*H, Red Blood Count 2.54L, Hemoglobin 9.6L, Hematocrit 29.9L, Mean Corpuscular Volume 118H, Mean Corpuscular Hemoglobin 37.9H, Mean Corpuscular Hemoglobin Concent 32.2, Red Cell Distribution Width 17.0H, Platelet Count 183, Mean Platelet Volume 8.3, Neutrophils (%) (Auto) , Lymphocytes (%) (Auto) , Monocytes (%) (Auto) , Eosinophils (%) (Auto) , Basophils (%) (Auto) , Differential Total Cells Counted 100, Neutrophils % ( Manual) 92H, Lymphocytes % (Manual) 2L, Monocytes % (Manual) 6, Eosinophils % ( Manual) 0, Basophils % (Manual) 0, Band Neutrophils 0, Platelet Estimate Adequate, Platelet Morphology Normal, Hypochromasia 1+, Anisocytosis 1+, Macrocytosis 1+, Sodium Level 141, Potassium Level 5.5H, Chloride Level 108H, Carbon Dioxide Level 26, Anion Gap 7, Blood Urea Nitrogen 38H, Creatinine 1.6H, Estimat Glomerular Filtration Rate 48.1, Glucose Level 99, Calcium Level 8.7, Total Bilirubin 20.3H, Direct Bilirubin 17.6H, Aspartate Amino Transf (AST/SGOT ) 167H, Alanine Aminotransferase (ALT/SGPT) 84H, Alkaline Phosphatase 458H, Total Protein 4.9L, Albumin 1.4L, Amylase Level 167H, Lipase 1165H 05/12/17 12:10: Urine Color [Pending], Urine Appearance [Pending], Urine pH [Pending], Urine Specific [place] [Pending], Urine Protein [Pending], Urine Glucose (UA) [Pending ], Urine Ketones [Pending], Urine Occult Blood [Pending], Urine Nitrite [Pending ], Urine Bilirubin [Pending], Urine Urobilinogen [Pending], Urine Leukocyte Esterase [Pending], Urine Random Sodium [Pending] Current Medications Medications (Trade) Dose Ordered Sig/Leonard Route PRN Reason Start Time Stop Time Status Last Admin Dose Admin Dextrose 1,000 ml @ 100 mls/hr Q10H IV 05/12/17 10:45 05/12/17 20:44 Lactulose (Cephulac) 30 gm DAILY ORAL 05/07/17 09:00 05/31/17 13:29 05/12/17 08:35 Lorazepam (Ativan) 1 mg Q6H PRN ORAL For Anxiety 05/12/17 12:15 05/19/17 12:14 05/12/17 12:32 Midodrine (Pro-Amatine) 10 mg THREE TIMES A DAY ORAL 05/12/17 13:00 06/11/17 12:59 Mirtazapine (Remeron) 15 mg BEDTIME ORAL 05/07/17 21:00 06/06/17 20:59 05/11/17 21:38 Octreotide Acetate (SandoSTATIN) 100 mcg Q8HR SUBQ 05/12/17 14:00 06/11/17 13:59 Prednisone (predniSONE) 40 mg DAILY ORAL 05/08/17 09:00 06/07/17 08:59 05/12/17 08:35 Rifaximin (Xifaxan) 550 mg EVERY 12 HOURS ORAL 05/06/17 21:00 06/04/17 21:29 05/12/17 08:35 JAMES NAVARRO May 12, 2017 12:52
[2017-05-12] MEDS: Midodrine 10mg tab ORAL SCH ×2 (13:16→18:10)
--- NOTE | 2017-05-12 15:01 | General Progress Note ---
Assessment/Plan Problem List: (1) Jaundice of recent onset ICD Codes: R17 - Unspecified jaundice SNOMED: 05532816 (2) Ascites due to alcoholic cirrhosis ICD Codes: K70.31 - Alcoholic cirrhosis of liver with ascites SNOMED: 6012137510388365 (3) etoh withdrawal (4) depression (5) Pneumonia ICD Codes: J18.9 - Pneumonia, unspecified organism SNOMED: 183755917 Status: unchanged Assessment/Plan etoh cirrhosis ascites not hypoxic awaiting placement persistent jaundice due to cirrhosis per gi poor prognosis Subjective ROS Limited/Unobtainable: Yes Constitutional: Reports: no symptoms Allergies: Coded Allergies: No Known Allergies (Unverified , 04/29/17) Objective Last 24 Hour Vital Signs Date Time Temp Pulse Resp B/P (MAP) Pulse Ox O2 Delivery O2 Flow Rate FiO2 05/12/17 08:00 97.3 84 16 114/56 95 Nasal Cannula 2.0 05/12/17 06:00 79 108/71 05/12/17 04:00 98.2 79 20 108/71 91 Room Air 05/12/17 00:00 97.3 74 20 112/65 93 Room Air 05/11/17 21:37 75 117/69 05/11/17 20:00 97.0 75 20 117/69 92 Room Air 05/11/17 16:07 97.9 75 21 106/65 98 Nasal Cannula 3.0 Laboratory Tests 05/12/17 05:20: White Blood Count 23.4*H, Red Blood Count 2.54L, Hemoglobin 9.6L, Hematocrit 29.9L, Mean Corpuscular Volume 118H, Mean Corpuscular Hemoglobin 37.9H, Mean Corpuscular Hemoglobin Concent 32.2, Red Cell Distribution Width 17.0H, Platelet Count 183, Mean Platelet Volume 8.3, Neutrophils (%) (Auto) , Lymphocytes (%) (Auto) , Monocytes (%) (Auto) , Eosinophils (%) (Auto) , Basophils (%) (Auto) , Differential Total Cells Counted 100, Neutrophils % ( Manual) 92H, Lymphocytes % (Manual) 2L, Monocytes % (Manual) 6, Eosinophils % ( Manual) 0, Basophils % (Manual) 0, Band Neutrophils 0, Platelet Estimate Adequate, Platelet Morphology Normal, Hypochromasia 1+, Anisocytosis 1+, Macrocytosis 1+, Sodium Level 141, Potassium Level 5.5H, Chloride Level 108H, Carbon Dioxide Level 26, Anion Gap 7, Blood Urea Nitrogen 38H, Creatinine 1.6H, Estimat Glomerular Filtration Rate 48.1, Glucose Level 99, Calcium Level 8.7, Total Bilirubin 20.3H, Direct Bilirubin 17.6H, Aspartate Amino Transf (AST/SGOT ) 167H, Alanine Aminotransferase (ALT/SGPT) 84H, Alkaline Phosphatase 458H, Total Protein 4.9L, Albumin 1.4L, Amylase Level 167H, Lipase 1165H 05/12/17 12:10: Urine Color Brown, Urine Appearance Clear, Urine pH 5, Urine Specific [place] 1.015, Urine Protein 1+H, Urine Glucose (UA) Negative, Urine Ketones Negative, Urine Occult Blood 1+H, Urine Nitrite PositiveH, Urine Bilirubin 3+H, Urine Ictotest Positive, Urine Urobilinogen 8H, Urine Leukocyte Esterase 1+H, Urine RBC 2-4H, Urine WBC 2-4, Urine Squamous Epithelial Cells Occasional, Urine Bacteria Few, Urine Granular Casts 2-4H, Urine Random Sodium 25 Height (Feet): 5 Height (Inches): 8.00 Weight (Pounds): 205 Cardiovascular: regular rhythm Respiratory/Chest: lungs clear Abdomen: soft Sunday Choi MD May 12, 2017 15:01
[2017-05-12] MEDS: SandoSTATIN 100mcg/ml amp SUBQ SCH ×2 (15:39→21:24)
[2017-05-12 20:00] VITALS: BP 125/67
--- NOTE | 2017-05-12 22:16 | Infectious Diseases Prog Note ---
Assessment/Plan Problems: (1) Leukocytosis Assessment & Plan: Sepsis versus SIRS. WBC much worse. Recheck cultures. Status post a course of Unasyn for acalculous cholecystitis versus pneumonia versus UTI. Follow-up WBC. Overall clinically stable. (2) Liver cirrhosis, alcoholic (3) Ascites due to alcoholic cirrhosis (4) Jaundice of recent onset (5) Alcohol abuse (6) Pancreatitis Assessment & Plan: Follow-up lipase and amylase. (7) QAMAR (acute kidney injury) Assessment & Plan: Cr up again. Subjective Allergies: Coded Allergies: No Known Allergies (Unverified , 04/29/17) Objective Vital Signs Last 24 Hour Vital Signs Date Time Temp Pulse Resp B/P (MAP) Pulse Ox O2 Delivery O2 Flow Rate FiO2 05/12/17 20:04 Nasal Cannula 2.0 28 05/12/17 20:04 91 Nasal Cannula 2.0 28 05/12/17 20:00 97.7 79 20 125/67 93 Nasal Cannula 3.0 05/12/17 12:00 97.7 84 18 110/69 92 05/12/17 08:00 97.3 84 16 114/56 95 Nasal Cannula 2.0 05/12/17 06:00 79 108/71 05/12/17 04:00 98.2 79 20 108/71 91 Room Air 05/12/17 00:00 97.3 74 20 112/65 93 Room Air Height (Feet): 5 Height (Inches): 8.00 Weight (Pounds): 205 Laboratory Tests Test 05/12/17 05:20 05/12/17 12:10 White Blood Count 23.4 K/UL (4.8-10.8) *H Red Blood Count 2.54 M/UL (4.70-6.10) L Hemoglobin 9.6 G/DL (14.2-18.0) L Hematocrit 29.9 % (42.0-52.0) L Mean Corpuscular Volume 118 FL (80-99) H Mean Corpuscular Hemoglobin 37.9 PG (27.0-31.0) H Mean Corpuscular Hemoglobin Concent 32.2 G/DL (32.0-36.0) Red Cell Distribution Width 17.0 % (11.6-14.8) H Platelet Count 183 K/UL (150-450) Mean Platelet Volume 8.3 FL (6.5-10.1) Neutrophils (%) (Auto) % (45.0-75.0) Lymphocytes (%) (Auto) % (20.0-45.0) Monocytes (%) (Auto) % (1.0-10.0) Eosinophils (%) (Auto) % (0.0-3.0) Basophils (%) (Auto) % (0.0-2.0) Differential Total Cells Counted 100 Neutrophils % (Manual) 92 % (45-75) H Lymphocytes % (Manual) 2 % (20-45) L Monocytes % (Manual) 6 % (1-10) Eosinophils % (Manual) 0 % (0-3) Basophils % (Manual) 0 % (0-2) Band Neutrophils 0 % (0-8) Platelet Estimate Adequate Platelet Morphology Normal Hypochromasia 1+ Anisocytosis 1+ Macrocytosis 1+ Sodium Level 141 MMOL/L (136-145) Potassium Level 5.5 MMOL/L (3.5-5.1) H Chloride Level 108 MMOL/L (98-107) H Carbon Dioxide Level 26 MMOL/L (21-32) Anion Gap 7 mmol/L (5-15) Blood Urea Nitrogen 38 mg/dL (7-18) H Creatinine 1.6 MG/DL (0.55-1.30) H Estimat Glomerular Filtration Rate 48.1 mL/min (>60) Glucose Level 99 MG/DL (74-106) Calcium Level 8.7 MG/DL (8.5-10.1) Total Bilirubin 20.3 MG/DL (0.2-1.0) H Direct Bilirubin 17.6 MG/DL (0.0-0.3) H Aspartate Amino Transf (AST/SGOT) 167 U/L (15-37) H Alanine Aminotransferase (ALT/SGPT) 84 U/L (12-78) H Alkaline Phosphatase 458 U/L (46-116) H Total Protein 4.9 G/DL (6.4-8.2) L Albumin 1.4 G/DL (3.4-5.0) L Amylase Level 167 U/L (25-115) H Lipase 1165 U/L (73-393) H Urine Color Brown Urine Appearance Clear Urine pH 5 (4.5-8.0) Urine Specific [place] 1.015 (1.005-1.035) Urine Protein 1+ (NEGATIVE) H Urine Glucose (UA) Negative (NEGATIVE) Urine Ketones Negative (NEGATIVE) Urine Occult Blood 1+ (NEGATIVE) H Urine Nitrite Positive (NEGATIVE) H Urine Bilirubin 3+ (NEGATIVE) H Urine Ictotest Positive Urine Urobilinogen 8 MG/DL (0.0-1.0) H Urine Leukocyte Esterase 1+ (NEGATIVE) H Urine RBC 2-4 /HPF (0 - 0) H Urine WBC 2-4 /HPF (0 - 0) Urine Squamous Epithelial Cells Occasional /LPF Urine Bacteria Few /HPF (NONE) Urine Granular Casts 2-4 /LPF (NONE) H Urine Random Sodium 25 MEQ/L (20-110) Current Medications Medications (Trade) Dose Ordered Sig/Leonard Route PRN Reason Start Time Stop Time Status Last Admin Dose Admin Lactulose (Cephulac) 30 gm DAILY ORAL 05/07/17 09:00 05/31/17 13:29 05/12/17 08:35 Lorazepam (Ativan) 1 mg Q6H PRN ORAL For Anxiety 05/12/17 12:15 05/19/17 12:14 05/12/17 12:32 Midodrine (Pro-Amatine) 10 mg THREE TIMES A DAY ORAL 05/12/17 13:00 06/11/17 12:59 05/12/17 18:10 Mirtazapine (Remeron) 15 mg BEDTIME ORAL 05/07/17 21:00 06/06/17 20:59 05/12/17 21:23 Octreotide Acetate (SandoSTATIN) 100 mcg Q8HR SUBQ 05/12/17 14:00 06/11/17 13:59 05/12/17 21:24 Pantoprazole (Protonix) 40 mg DAILY ORAL 05/13/17 09:00 06/12/17 08:59 Prednisone (predniSONE) 40 mg DAILY ORAL 05/08/17 09:00 06/07/17 08:59 05/12/17 08:35 Rifaximin (Xifaxan) 550 mg EVERY 12 HOURS ORAL 05/06/17 21:00 06/04/17 21:29 05/12/17 21:23 PERCY DALTON May 12, 2017 22:16
--- NOTE | 2017-05-12 22:48 | General Progress Note ---
Assessment/Plan Status: stable Assessment/Plan encephalopathy improving alcohol dependence -cont ativan a remeron 15mg qhs Subjective Neurologic/Psychiatric: Reports: anxiety, depressed, emotional problems Allergies: Coded Allergies: No Known Allergies (Unverified , 04/29/17) Subjective the pt was told by gi that he is doing well and has good prognosis however kidneys are worse. the pt has leukocytosis. worried and cried today Objective Last 24 Hour Vital Signs Date Time Temp Pulse Resp B/P (MAP) Pulse Ox O2 Delivery O2 Flow Rate FiO2 05/12/17 20:04 Nasal Cannula 2.0 28 05/12/17 20:04 91 Nasal Cannula 2.0 28 05/12/17 20:00 97.7 79 20 125/67 93 Nasal Cannula 3.0 05/12/17 12:00 97.7 84 18 110/69 92 05/12/17 08:00 97.3 84 16 114/56 95 Nasal Cannula 2.0 05/12/17 06:00 79 108/71 05/12/17 04:00 98.2 79 20 108/71 91 Room Air 05/12/17 00:00 97.3 74 20 112/65 93 Room Air Intake and Output 05/12/17 05/13/17 19:00 07:00 Intake Total 300 ml Balance 300 ml IV Total 300 ml Laboratory Tests 05/12/17 05:20: White Blood Count 23.4*H, Red Blood Count 2.54L, Hemoglobin 9.6L, Hematocrit 29.9L, Mean Corpuscular Volume 118H, Mean Corpuscular Hemoglobin 37.9H, Mean Corpuscular Hemoglobin Concent 32.2, Red Cell Distribution Width 17.0H, Platelet Count 183, Mean Platelet Volume 8.3, Neutrophils (%) (Auto) , Lymphocytes (%) (Auto) , Monocytes (%) (Auto) , Eosinophils (%) (Auto) , Basophils (%) (Auto) , Differential Total Cells Counted 100, Neutrophils % ( Manual) 92H, Lymphocytes % (Manual) 2L, Monocytes % (Manual) 6, Eosinophils % ( Manual) 0, Basophils % (Manual) 0, Band Neutrophils 0, Platelet Estimate Adequate, Platelet Morphology Normal, Hypochromasia 1+, Anisocytosis 1+, Macrocytosis 1+, Sodium Level 141, Potassium Level 5.5H, Chloride Level 108H, Carbon Dioxide Level 26, Anion Gap 7, Blood Urea Nitrogen 38H, Creatinine 1.6H, Estimat Glomerular Filtration Rate 48.1, Glucose Level 99, Calcium Level 8.7, Total Bilirubin 20.3H, Direct Bilirubin 17.6H, Aspartate Amino Transf (AST/SGOT ) 167H, Alanine Aminotransferase (ALT/SGPT) 84H, Alkaline Phosphatase 458H, Total Protein 4.9L, Albumin 1.4L, Amylase Level 167H, Lipase 1165H 05/12/17 12:10: Urine Color Brown, Urine Appearance Clear, Urine pH 5, Urine Specific [place] 1.015, Urine Protein 1+H, Urine Glucose (UA) Negative, Urine Ketones Negative, Urine Occult Blood 1+H, Urine Nitrite PositiveH, Urine Bilirubin 3+H, Urine Ictotest Positive, Urine Urobilinogen 8H, Urine Leukocyte Esterase 1+H, Urine RBC 2-4H, Urine WBC 2-4, Urine Squamous Epithelial Cells Occasional, Urine Bacteria Few, Urine Granular Casts 2-4H, Urine Random Sodium 25 Height (Feet): 5 Height (Inches): 8.00 Weight (Pounds): 205 General Appearance: no apparent distress, alert, overweight Neurologic: alert, oriented x 3, responsive, depressed affect Trino Kirby M.D. May 12, 2017 22:48
--- NOTE | 2017-05-12 23:26 | Cardiology Progress Note ---
Assessment/Plan Assessment/Plan 1. Sinus tachycardia, resolved, due to intravascular volume depletion due to hypo-albuminemia, continue Inderal, normal LVEF. 2. Mild pulmonary HTN. 3. 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 4. QAMAR, uptrending creatinine. 5. Leukocytosis. Subjective Subjective No cardiac events. Not on telemetry bed. Objective Last 24 Hour Vital Signs Date Time Temp Pulse Resp B/P (MAP) Pulse Ox O2 Delivery O2 Flow Rate FiO2 05/12/17 20:04 Nasal Cannula 2.0 28 05/12/17 20:04 91 Nasal Cannula 2.0 28 05/12/17 20:00 97.7 79 20 125/67 93 Nasal Cannula 3.0 05/12/17 12:00 97.7 84 18 110/69 92 05/12/17 08:00 97.3 84 16 114/56 95 Nasal Cannula 2.0 05/12/17 06:00 79 108/71 05/12/17 04:00 98.2 79 20 108/71 91 Room Air 05/12/17 00:00 97.3 74 20 112/65 93 Room Air Intake and Output 05/12/17 05/13/17 19:00 07:00 Intake Total 300 ml Balance 300 ml IV Total 300 ml 2D Echo: LVEF at 55%, RVSP 45 mmHg Laboratory Tests Test 05/12/17 05:20 05/12/17 12:10 White Blood Count 23.4 K/UL (4.8-10.8) *H Red Blood Count 2.54 M/UL (4.70-6.10) L Hemoglobin 9.6 G/DL (14.2-18.0) L Hematocrit 29.9 % (42.0-52.0) L Mean Corpuscular Volume 118 FL (80-99) H Mean Corpuscular Hemoglobin 37.9 PG (27.0-31.0) H Mean Corpuscular Hemoglobin Concent 32.2 G/DL (32.0-36.0) Red Cell Distribution Width 17.0 % (11.6-14.8) H Platelet Count 183 K/UL (150-450) Mean Platelet Volume 8.3 FL (6.5-10.1) Neutrophils (%) (Auto) % (45.0-75.0) Lymphocytes (%) (Auto) % (20.0-45.0) Monocytes (%) (Auto) % (1.0-10.0) Eosinophils (%) (Auto) % (0.0-3.0) Basophils (%) (Auto) % (0.0-2.0) Differential Total Cells Counted 100 Neutrophils % (Manual) 92 % (45-75) H Lymphocytes % (Manual) 2 % (20-45) L Monocytes % (Manual) 6 % (1-10) Eosinophils % (Manual) 0 % (0-3) Basophils % (Manual) 0 % (0-2) Band Neutrophils 0 % (0-8) Platelet Estimate Adequate Platelet Morphology Normal Hypochromasia 1+ Anisocytosis 1+ Macrocytosis 1+ Sodium Level 141 MMOL/L (136-145) Potassium Level 5.5 MMOL/L (3.5-5.1) H Chloride Level 108 MMOL/L (98-107) H Carbon Dioxide Level 26 MMOL/L (21-32) Anion Gap 7 mmol/L (5-15) Blood Urea Nitrogen 38 mg/dL (7-18) H Creatinine 1.6 MG/DL (0.55-1.30) H Estimat Glomerular Filtration Rate 48.1 mL/min (>60) Glucose Level 99 MG/DL (74-106) Calcium Level 8.7 MG/DL (8.5-10.1) Total Bilirubin 20.3 MG/DL (0.2-1.0) H Direct Bilirubin 17.6 MG/DL (0.0-0.3) H Aspartate Amino Transf (AST/SGOT) 167 U/L (15-37) H Alanine Aminotransferase (ALT/SGPT) 84 U/L (12-78) H Alkaline Phosphatase 458 U/L (46-116) H Total Protein 4.9 G/DL (6.4-8.2) L Albumin 1.4 G/DL (3.4-5.0) L Amylase Level 167 U/L (25-115) H Lipase 1165 U/L (73-393) H Urine Color Brown Urine Appearance Clear Urine pH 5 (4.5-8.0) Urine Specific [place] 1.015 (1.005-1.035) Urine Protein 1+ (NEGATIVE) H Urine Glucose (UA) Negative (NEGATIVE) Urine Ketones Negative (NEGATIVE) Urine Occult Blood 1+ (NEGATIVE) H Urine Nitrite Positive (NEGATIVE) H Urine Bilirubin 3+ (NEGATIVE) H Urine Ictotest Positive Urine Urobilinogen 8 MG/DL (0.0-1.0) H Urine Leukocyte Esterase 1+ (NEGATIVE) H Urine RBC 2-4 /HPF (0 - 0) H Urine WBC 2-4 /HPF (0 - 0) Urine Squamous Epithelial Cells Occasional /LPF Urine Bacteria Few /HPF (NONE) Urine Granular Casts 2-4 /LPF (NONE) H Urine Random Sodium 25 MEQ/L (20-110) Objective HEENT: Head is normocephalic. PERRLA, EOMI. Eyes show scleral icterus. NECK: JVD is negative, no carotid bruit, carotid upstroke 2+ B/L LUNGS: Decreased breath sounds in the bases. CARDIAC: Rhythm is regular. Tachycardia, no murmurs, gallops or rubs. ABDOMEN: Distended, soft and nontender. There is a fluid wave noted. EXTREMITIES: No clubbing or cyanosis. There is 2+ edema. YAQUELIN HARDY May 12, 2017 23:26
[2017-05-13] VITALS (7 sets, daily range): BP systolic 107–123; BP diastolic 56–73
[2017-05-13] MEDS: SandoSTATIN 100mcg/ml amp SUBQ SCH ×3 (05:53→21:09)
--- NOTE | 2017-05-13 08:14 | General Progress Note ---
Assessment/Plan Assessment/Plan Assessment and Plan # Anemia of alcoholic myelosuppression, liver disease, end-stage, due to chronic disease ---> anemia w/u has been reviewed --> improving --> s/p transfusion, hgb goal >7 # Coagulopathy - 2/2 liver disease and underlying cirrhosis # Leukocytosis likely reactive from steroids # Thrombocytopenia is due to cirrhosis, liver involvement and splenomegaly # Hyperbilibirubinemia - 2/2 etoh abuse, liver cirrhosis # ETOH withdrawal # PNA # Jaundice of recent onset with severe hyperbilirubinemia # Ascites s/p multiple paracenteses Subjective Date patient seen: May 12, 2017 Constitutional: Reports: no symptoms HEENT: Reports: no symptoms Cardiovascular: Reports: no symptoms Respiratory: Reports: no symptoms Gastrointestinal/Abdominal: Reports: abdomen distended Genitourinary: Reports: no symptoms Neurologic/Psychiatric: Reports: no symptoms Endocrine: Reports: no symptoms Hematologic/Lymphatic: Reports: no symptoms Allergies: Coded Allergies: No Known Allergies (Unverified , 04/29/17) Subjective wbc still elevated Objective Last 24 Hour Vital Signs Date Time Temp Pulse Resp B/P (MAP) Pulse Ox O2 Delivery O2 Flow Rate FiO2 05/13/17 04:00 97.7 76 21 119/72 100 Room Air 05/13/17 00:00 98.2 65 20 107/56 95 Nasal Cannula 2.0 05/12/17 20:04 Nasal Cannula 2.0 28 05/12/17 20:04 91 Nasal Cannula 2.0 28 05/12/17 20:00 97.7 79 20 125/67 93 Nasal Cannula 3.0 05/12/17 12:00 97.7 84 18 110/69 92 Laboratory Tests 05/12/17 12:10: Urine Color Brown, Urine Appearance Clear, Urine pH 5, Urine Specific [place] 1.015, Urine Protein 1+H, Urine Glucose (UA) Negative, Urine Ketones Negative, Urine Occult Blood 1+H, Urine Nitrite PositiveH, Urine Bilirubin 3+H, Urine Ictotest Positive, Urine Urobilinogen 8H, Urine Leukocyte Esterase 1+H, Urine RBC 2-4H, Urine WBC 2-4, Urine Squamous Epithelial Cells Occasional, Urine Bacteria Few, Urine Granular Casts 2-4H, Urine Random Sodium 25 Height (Feet): 5 Height (Inches): 8.00 Weight (Pounds): 205 General Appearance: no apparent distress, lethargic EENT: normal ENT inspection Neck: normal inspection Cardiovascular: regular rhythm Extremities: non-tender Neurologic: manager meat II-XII grossly normal Skin: warm/dry Joshua Hurley May 13, 2017 08:14
[2017-05-13 08:20] LABS: MEAN CORPUSCULAR HEMOGLOBIN 36.9 PG (27.0-31.0); MEAN CORPUSCULAR HGB CONC 31.4 G/DL (32.0-36.0); MEAN CORPUSCULAR VOLUME 117 FL (80-99); MEAN PLATELET VOLUME 7.8 FL (6.5-10.1); PLATELET COUNT 187 K/UL (150-450); RED BLOOD COUNT 2.69 M/UL (4.70-6.10); RED CELL DISTRIBUTION WIDTH 17.2 % (11.6-14.8)
[2017-05-13 08:22] LABS: WHITE BLOOD COUNT 24.1 K/UL (4.8-10.8)
[2017-05-13] MEDS: Lactulose 20gm/30ml UDC ORAL SCH (08:37)
[2017-05-13] MEDS: Midodrine 10mg tab ORAL SCH ×3 (08:37→18:57)
[2017-05-13 08:55] LABS: MAGNESIUM 1.9 MG/DL (1.8-2.4); URIC ACID 4.6 MG/DL (2.6-7.2)
[2017-05-13 09:00] LABS: ALANINE AMINOTRANSFERASE 88 U/L (12-78); ALBUMIN/GLOBULIN RATIO 0.4 (1.0-2.7); ANION GAP 10 mmol/L (5-15); ASPARTATE AMINO TRANSFERASE 147 U/L (15-37); CALCIUM 8.5 MG/DL (8.5-10.1); CARBON DIOXIDE 24 MMOL/L (21-32); CHLORIDE 106 MMOL/L (98-107); CREATININE 1.5 MG/DL (0.55-1.30); GLOMERULAR FILTRATION RATE 51.8 mL/min (>60); POTASSIUM 4.2 MMOL/L (3.5-5.1); SODIUM 140 MMOL/L (136-145); TOTAL PROTEIN 5.2 G/DL (6.4-8.2)
[2017-05-13 09:03] LABS: BILIRUBIN,DIRECT 17.1 MG/DL (0.0-0.3)
[2017-05-13 09:07] LABS: BAND NEUTROPHILS % (MANUAL) 1 % (0-8); BASOPHILS % (MANUAL) 0 % (0-2); EOSINOPHILS % (MANUAL) 0 % (0-3); LYMPHOCYTES % (MANUAL) 1 % (20-45); NEUTROPHILS % (MANUAL) 92 % (45-75); PLATELET ESTIMATE ADEQUATE; TOTAL CELLS COUNTED 100
[2017-05-13 09:08] LABS: ANISOCYTOSIS 1+; MACROCYTES 1+; PLATELET MORPHOLOGY NORMAL
[2017-05-13 09:09] LABS: HYPOCHROMASIA 1+
--- NOTE | 2017-05-13 12:22 | Diagnostic Imaging Report ---
Indication: SOB Technique: One view of the chest Comparison: 05/12/2017 Findings: Scarring or atelectasis at the right lung base persists, may be slightly improved. There is ration currently. Questionably slightly improved interstitial congestion. Impression: Questionable slightly improved interstitial congestion, over one day Improved bilateral basilar aeration
--- NOTE | 2017-05-13 13:55 | GI Progress Note ---
Assessment/Plan Problems: (1) Jaundice of recent onset ICD Codes: R17 - Unspecified jaundice SNOMED: 10745044 (2) etoh withdrawal (3) depression (4) Pneumonia ICD Codes: J18.9 - Pneumonia, unspecified organism SNOMED: 498201068 (5) Acalculous cholecystitis ICD Codes: K81.9 - Cholecystitis, unspecified SNOMED: 96982340 (6) Ascites due to alcoholic cirrhosis ICD Codes: K70.31 - Alcoholic cirrhosis of liver with ascites SNOMED: 8869656836102315 (7) Alcohol abuse ICD Codes: F10.10 - Alcohol abuse, uncomplicated SNOMED: 58441987 Status: unchanged Status Narrative Discussed with Dr. Daly. Assessment/Plan s/p paracentesis yielding 3.1 liters of bright yellow fluid. venous duplex r/o DVT given BLE edema dc propranolol cont midodrine and octreotide given elevated creatinine elevated ammonia >> lactulose + Xifaxan low sodium diet prednisone 40mg x 28 days, start taper on 05/27/17. monitor LFTs not transplant candidate given active drinking ppi fu labs patient will be followed weekly by us in clinic Subjective Subjective worked with PT feels better overall Objective Last 24 Hour Vital Signs Date Time Temp Pulse Resp B/P (MAP) Pulse Ox O2 Delivery O2 Flow Rate FiO2 05/13/17 12:15 98.2 83 21 117/71 95 Room Air 05/13/17 09:15 97.6 77 21 123/69 96 Nasal Cannula 2.0 05/13/17 08:15 97.6 77 21 123/69 96 Nasal Cannula 2.0 05/13/17 04:00 97.7 76 21 119/72 100 Room Air 05/13/17 00:00 98.2 65 20 107/56 95 Nasal Cannula 2.0 05/12/17 20:04 Nasal Cannula 2.0 28 05/12/17 20:04 91 Nasal Cannula 2.0 28 05/12/17 20:00 97.7 79 20 125/67 93 Nasal Cannula 3.0 Intake and Output 05/13/17 05/14/17 19:00 07:00 Intake Total 240 ml Balance 240 ml Intake Oral 240 ml # Bowel Movements 4 Laboratory Tests Test 05/13/17 07:12 White Blood Count 24.1 K/UL (4.8-10.8) *H Red Blood Count 2.69 M/UL (4.70-6.10) L Hemoglobin 9.9 G/DL (14.2-18.0) L Hematocrit 31.5 % (42.0-52.0) L Mean Corpuscular Volume 117 FL (80-99) H Mean Corpuscular Hemoglobin 36.9 PG (27.0-31.0) H Mean Corpuscular Hemoglobin Concent 31.4 G/DL (32.0-36.0) L Red Cell Distribution Width 17.2 % (11.6-14.8) H Platelet Count 187 K/UL (150-450) Mean Platelet Volume 7.8 FL (6.5-10.1) Neutrophils (%) (Auto) % (45.0-75.0) Lymphocytes (%) (Auto) % (20.0-45.0) Monocytes (%) (Auto) % (1.0-10.0) Eosinophils (%) (Auto) % (0.0-3.0) Basophils (%) (Auto) % (0.0-2.0) Differential Total Cells Counted 100 Neutrophils % (Manual) 92 % (45-75) H Lymphocytes % (Manual) 1 % (20-45) L Monocytes % (Manual) 6 % (1-10) Eosinophils % (Manual) 0 % (0-3) Basophils % (Manual) 0 % (0-2) Band Neutrophils 1 % (0-8) Platelet Estimate Adequate Platelet Morphology Normal Hypochromasia 1+ Anisocytosis 1+ Macrocytosis 1+ Sodium Level 140 MMOL/L (136-145) Potassium Level 4.2 MMOL/L (3.5-5.1) Chloride Level 106 MMOL/L (98-107) Carbon Dioxide Level 24 MMOL/L (21-32) Anion Gap 10 mmol/L (5-15) Blood Urea Nitrogen 36 mg/dL (7-18) H Creatinine 1.5 MG/DL (0.55-1.30) H Estimat Glomerular Filtration Rate 51.8 mL/min (>60) Glucose Level 135 MG/DL (74-106) H Uric Acid 4.6 MG/DL (2.6-7.2) Calcium Level 8.5 MG/DL (8.5-10.1) Phosphorus Level 4.0 MG/DL (2.5-4.9) Magnesium Level 1.9 MG/DL (1.8-2.4) Total Bilirubin 19.4 MG/DL (0.2-1.0) H Direct Bilirubin 17.1 MG/DL (0.0-0.3) H Aspartate Amino Transf (AST/SGOT) 147 U/L (15-37) H Alanine Aminotransferase (ALT/SGPT) 88 U/L (12-78) H Alkaline Phosphatase 466 U/L (46-116) H Ammonia 43 umol/L (11.2-31.7) H C-Reactive Protein, Quantitative 5.0 mg/dL (0.00-0.90) H Pro-B-Type Natriuretic Peptide 936 pg/mL (0-125) H Total Protein 5.2 G/DL (6.4-8.2) L Albumin 1.5 G/DL (3.4-5.0) L Globulin 3.7 g/dL Albumin/Globulin Ratio 0.4 (1.0-2.7) L Microbiology Date/Time Source Procedure Growth Status 05/12/17 19:00 Stool Clostridium difficile Toxin Assay - Final Complete Height (Feet): 5 Height (Inches): 8.00 Weight (Pounds): 205 General Appearance: WD/WN, no apparent distress, alert Cardiovascular: normal rate Respiratory/Chest: normal breath sounds, no respiratory distress Abdominal Exam: normal bowel sounds, non tender, soft Extremities: non-tender, other - BLE +3 Objective Jaundice Danay Grady N.P. May 13, 2017 13:55
--- NOTE | 2017-05-13 14:44 | General Progress Note ---
Assessment/Plan Status: stable Assessment/Plan status: renal failure on admit , likely hepatorenal- Cr now normalized low Na due to anasarca Low K Jaundice Anemia high Lipase High lactic low alb Plan; one liter D5 Urine studies per GI- transfuse as needed monitor renal parameters- monitor lytes- poor prognosis- DC planning if no other GI plans scheduled Subjective ROS Limited/Unobtainable: No Constitutional: Reports: malaise, weakness Allergies: Coded Allergies: No Known Allergies (Unverified , 04/29/17) Objective Last 24 Hour Vital Signs Date Time Temp Pulse Resp B/P (MAP) Pulse Ox O2 Delivery O2 Flow Rate FiO2 05/13/17 12:15 98.2 83 21 117/71 95 Room Air 05/13/17 09:15 97.6 77 21 123/69 96 Nasal Cannula 2.0 05/13/17 08:15 97.6 77 21 123/69 96 Nasal Cannula 2.0 05/13/17 04:00 97.7 76 21 119/72 100 Room Air 05/13/17 00:00 98.2 65 20 107/56 95 Nasal Cannula 2.0 05/12/17 20:04 Nasal Cannula 2.0 28 05/12/17 20:04 91 Nasal Cannula 2.0 28 05/12/17 20:00 97.7 79 20 125/67 93 Nasal Cannula 3.0 Intake and Output 05/13/17 05/14/17 19:00 07:00 Intake Total 240 ml Balance 240 ml Intake Oral 240 ml # Bowel Movements 4 Laboratory Tests 05/13/17 07:12: White Blood Count 24.1*H, Red Blood Count 2.69L, Hemoglobin 9.9L, Hematocrit 31.5L, Mean Corpuscular Volume 117H, Mean Corpuscular Hemoglobin 36.9H, Mean Corpuscular Hemoglobin Concent 31.4L, Red Cell Distribution Width 17.2H, Platelet Count 187, Mean Platelet Volume 7.8, Neutrophils (%) (Auto) , Lymphocytes (%) (Auto) , Monocytes (%) (Auto) , Eosinophils (%) (Auto) , Basophils (%) (Auto) , Differential Total Cells Counted 100, Neutrophils % ( Manual) 92H, Lymphocytes % (Manual) 1L, Monocytes % (Manual) 6, Eosinophils % ( Manual) 0, Basophils % (Manual) 0, Band Neutrophils 1, Platelet Estimate Adequate, Platelet Morphology Normal, Hypochromasia 1+, Anisocytosis 1+, Macrocytosis 1+, Sodium Level 140, Potassium Level 4.2, Chloride Level 106, Carbon Dioxide Level 24, Anion Gap 10, Blood Urea Nitrogen 36H, Creatinine 1.5H , Estimat Glomerular Filtration Rate 51.8, Glucose Level 135H, Uric Acid 4.6, Calcium Level 8.5, Phosphorus Level 4.0, Magnesium Level 1.9, Total Bilirubin 19.4H, Direct Bilirubin 17.1H, Aspartate Amino Transf (AST/SGOT) 147H, Alanine Aminotransferase (ALT/SGPT) 88H, Alkaline Phosphatase 466H, Ammonia 43H, C- Reactive Protein, Quantitative 5.0H, Pro-B-Type Natriuretic Peptide 936H, Total Protein 5.2L, Albumin 1.5L, Globulin 3.7, Albumin/Globulin Ratio 0.4L Height (Feet): 5 Height (Inches): 8.00 Weight (Pounds): 205 General Appearance: no apparent distress, lethargic, other - Jaundiced EENT: scleral icterus Respiratory/Chest: decreased breath sounds Abdomen: distended Edema: 3+ Arm (L), 3+ Arm (R), 3+ Leg (L), 3+ Leg (R), 3+ Pedal (L), 3+ Pedal ( R), 3+ Generalized Objective MIKAELA Mcdowell May 13, 2017 14:44
[2017-05-13] MEDS: Cefepime HCl 2 GM in D5W 110 ML IVPB SCH (15:56)
--- NOTE | 2017-05-13 16:30 | General Progress Note ---
Assessment/Plan Assessment/Plan Assessment and Plan # Anemia of alcoholic myelosuppression, liver disease, end-stage, due to chronic disease ---> anemia w/u has been reviewed --> improving --> s/p transfusion, hgb goal >7 # Coagulopathy - 2/2 liver disease and underlying cirrhosis # Leukocytosis likely reactive from steroids # Thrombocytopenia is due to cirrhosis, liver involvement and splenomegaly # Hyperbilibirubinemia - 2/2 etoh abuse, liver cirrhosis # ETOH withdrawal # PNA # Jaundice of recent onset with severe hyperbilirubinemia. improved # Ascites s/p multiple paracenteses Subjective Constitutional: Reports: no symptoms HEENT: Reports: no symptoms Cardiovascular: Reports: no symptoms Respiratory: Reports: no symptoms Gastrointestinal/Abdominal: Reports: no symptoms Genitourinary: Reports: no symptoms Neurologic/Psychiatric: Reports: no symptoms Endocrine: Reports: no symptoms Allergies: Coded Allergies: No Known Allergies (Unverified , 04/29/17) Subjective feeling better Objective Last 24 Hour Vital Signs Date Time Temp Pulse Resp B/P (MAP) Pulse Ox O2 Delivery O2 Flow Rate FiO2 05/13/17 15:46 98.0 70 20 114/58 96 Nasal Cannula 3.0 05/13/17 12:15 98.2 83 21 117/71 95 Room Air 05/13/17 09:15 97.6 77 21 123/69 96 Nasal Cannula 2.0 05/13/17 08:15 97.6 77 21 123/69 96 Nasal Cannula 2.0 05/13/17 08:05 Nasal Cannula 2.0 28 05/13/17 08:05 96 Nasal Cannula 2.0 28 05/13/17 04:00 97.7 76 21 119/72 100 Room Air 05/13/17 00:00 98.2 65 20 107/56 95 Nasal Cannula 2.0 05/12/17 20:04 Nasal Cannula 2.0 28 05/12/17 20:04 91 Nasal Cannula 2.0 28 05/12/17 20:00 97.7 79 20 125/67 93 Nasal Cannula 3.0 Intake and Output 05/13/17 05/14/17 19:00 07:00 Intake Total 240 ml Balance 240 ml Intake Oral 240 ml # Bowel Movements 4 Laboratory Tests 05/13/17 07:12: White Blood Count 24.1*H, Red Blood Count 2.69L, Hemoglobin 9.9L, Hematocrit 31.5L, Mean Corpuscular Volume 117H, Mean Corpuscular Hemoglobin 36.9H, Mean Corpuscular Hemoglobin Concent 31.4L, Red Cell Distribution Width 17.2H, Platelet Count 187, Mean Platelet Volume 7.8, Neutrophils (%) (Auto) , Lymphocytes (%) (Auto) , Monocytes (%) (Auto) , Eosinophils (%) (Auto) , Basophils (%) (Auto) , Differential Total Cells Counted 100, Neutrophils % ( Manual) 92H, Lymphocytes % (Manual) 1L, Monocytes % (Manual) 6, Eosinophils % ( Manual) 0, Basophils % (Manual) 0, Band Neutrophils 1, Platelet Estimate Adequate, Platelet Morphology Normal, Hypochromasia 1+, Anisocytosis 1+, Macrocytosis 1+, Sodium Level 140, Potassium Level 4.2, Chloride Level 106, Carbon Dioxide Level 24, Anion Gap 10, Blood Urea Nitrogen 36H, Creatinine 1.5H , Estimat Glomerular Filtration Rate 51.8, Glucose Level 135H, Uric Acid 4.6, Calcium Level 8.5, Phosphorus Level 4.0, Magnesium Level 1.9, Total Bilirubin 19.4H, Direct Bilirubin 17.1H, Aspartate Amino Transf (AST/SGOT) 147H, Alanine Aminotransferase (ALT/SGPT) 88H, Alkaline Phosphatase 466H, Ammonia 43H, C- Reactive Protein, Quantitative 5.0H, Pro-B-Type Natriuretic Peptide 936H, Total Protein 5.2L, Albumin 1.5L, Globulin 3.7, Albumin/Globulin Ratio 0.4L Height (Feet): 5 Height (Inches): 8.00 Weight (Pounds): 205 General Appearance: no apparent distress EENT: normal ENT inspection Neck: normal inspection Edema: mild edema Neurologic: abnormal gait Joshua Hurley May 13, 2017 16:30
--- NOTE | 2017-05-13 16:44 | Infectious Diseases Prog Note ---
Assessment/Plan Problems: (1) Leukocytosis Assessment & Plan: Sepsis versus SIRS. WBC still elevated. Has pyuria. Cultures noted. Status post a course of Unasyn for acalculous cholecystitis versus pneumonia versus UTI. Follow-up WBC. Overall clinically stable. (2) Pyuria Assessment & Plan: UCx noted. Even though clinically stable, given overall comorbidities, will treat with a course of cefepime for possible UTI. (3) Liver cirrhosis, alcoholic (4) Ascites due to alcoholic cirrhosis (5) Jaundice of recent onset (6) Alcohol abuse (7) Pancreatitis Assessment & Plan: Lipase and amylase up again. (8) QAMAR (acute kidney injury) Assessment & Plan: Cr up again. Subjective Allergies: Coded Allergies: No Known Allergies (Unverified , 04/29/17) Objective Vital Signs Last 24 Hour Vital Signs Date Time Temp Pulse Resp B/P (MAP) Pulse Ox O2 Delivery O2 Flow Rate FiO2 05/13/17 15:46 98.0 70 20 114/58 96 Nasal Cannula 3.0 05/13/17 12:15 98.2 83 21 117/71 95 Room Air 05/13/17 09:15 97.6 77 21 123/69 96 Nasal Cannula 2.0 05/13/17 08:15 97.6 77 21 123/69 96 Nasal Cannula 2.0 05/13/17 08:05 Nasal Cannula 2.0 28 05/13/17 08:05 96 Nasal Cannula 2.0 28 05/13/17 04:00 97.7 76 21 119/72 100 Room Air 05/13/17 00:00 98.2 65 20 107/56 95 Nasal Cannula 2.0 05/12/17 20:04 Nasal Cannula 2.0 28 05/12/17 20:04 91 Nasal Cannula 2.0 28 05/12/17 20:00 97.7 79 20 125/67 93 Nasal Cannula 3.0 Height (Feet): 5 Height (Inches): 8.00 Weight (Pounds): 205 Microbiology Date/Time Source Procedure Growth Status 05/12/17 19:00 Stool Clostridium difficile Toxin Assay - Final Complete 05/12/17 12:10 Urine,Clean Catch Urine Culture - Preliminary Gram Negative Bacillus 1 Resulted Laboratory Tests Test 05/13/17 07:12 White Blood Count 24.1 K/UL (4.8-10.8) *H Red Blood Count 2.69 M/UL (4.70-6.10) L Hemoglobin 9.9 G/DL (14.2-18.0) L Hematocrit 31.5 % (42.0-52.0) L Mean Corpuscular Volume 117 FL (80-99) H Mean Corpuscular Hemoglobin 36.9 PG (27.0-31.0) H Mean Corpuscular Hemoglobin Concent 31.4 G/DL (32.0-36.0) L Red Cell Distribution Width 17.2 % (11.6-14.8) H Platelet Count 187 K/UL (150-450) Mean Platelet Volume 7.8 FL (6.5-10.1) Neutrophils (%) (Auto) % (45.0-75.0) Lymphocytes (%) (Auto) % (20.0-45.0) Monocytes (%) (Auto) % (1.0-10.0) Eosinophils (%) (Auto) % (0.0-3.0) Basophils (%) (Auto) % (0.0-2.0) Differential Total Cells Counted 100 Neutrophils % (Manual) 92 % (45-75) H Lymphocytes % (Manual) 1 % (20-45) L Monocytes % (Manual) 6 % (1-10) Eosinophils % (Manual) 0 % (0-3) Basophils % (Manual) 0 % (0-2) Band Neutrophils 1 % (0-8) Platelet Estimate Adequate Platelet Morphology Normal Hypochromasia 1+ Anisocytosis 1+ Macrocytosis 1+ Sodium Level 140 MMOL/L (136-145) Potassium Level 4.2 MMOL/L (3.5-5.1) Chloride Level 106 MMOL/L (98-107) Carbon Dioxide Level 24 MMOL/L (21-32) Anion Gap 10 mmol/L (5-15) Blood Urea Nitrogen 36 mg/dL (7-18) H Creatinine 1.5 MG/DL (0.55-1.30) H Estimat Glomerular Filtration Rate 51.8 mL/min (>60) Glucose Level 135 MG/DL (74-106) H Uric Acid 4.6 MG/DL (2.6-7.2) Calcium Level 8.5 MG/DL (8.5-10.1) Phosphorus Level 4.0 MG/DL (2.5-4.9) Magnesium Level 1.9 MG/DL (1.8-2.4) Total Bilirubin 19.4 MG/DL (0.2-1.0) H Direct Bilirubin 17.1 MG/DL (0.0-0.3) H Aspartate Amino Transf (AST/SGOT) 147 U/L (15-37) H Alanine Aminotransferase (ALT/SGPT) 88 U/L (12-78) H Alkaline Phosphatase 466 U/L (46-116) H Ammonia 43 umol/L (11.2-31.7) H C-Reactive Protein, Quantitative 5.0 mg/dL (0.00-0.90) H Pro-B-Type Natriuretic Peptide 936 pg/mL (0-125) H Total Protein 5.2 G/DL (6.4-8.2) L Albumin 1.5 G/DL (3.4-5.0) L Globulin 3.7 g/dL Albumin/Globulin Ratio 0.4 (1.0-2.7) L Current Medications Medications (Trade) Dose Ordered Sig/Leonard Route PRN Reason Start Time Stop Time Status Last Admin Dose Admin Cefepime HCl 2 gm/ Dextrose 110 ml @ 220 mls/hr Q12H IVPB 05/13/17 14:30 05/14/17 16:00 05/13/17 15:56 Cefepime HCl 2 gm/ Sodium Chloride 110 ml @ 220 mls/hr Q12HR@0200,1400 IVPB 05/15/17 02:00 05/22/17 01:59 Lactulose (Cephulac) 30 gm DAILY ORAL 05/07/17 09:00 05/31/17 13:29 05/13/17 08:37 Lorazepam (Ativan) 1 mg Q6H PRN ORAL For Anxiety 05/12/17 12:15 05/19/17 12:14 05/12/17 12:32 Midodrine (Pro-Amatine) 10 mg THREE TIMES A DAY ORAL 05/12/17 13:00 06/11/17 12:59 05/13/17 14:31 Mirtazapine (Remeron) 15 mg BEDTIME ORAL 05/07/17 21:00 06/06/17 20:59 05/12/17 21:23 Octreotide Acetate (SandoSTATIN) 100 mcg Q8HR SUBQ 05/12/17 14:00 06/11/17 13:59 05/13/17 14:31 Pantoprazole (Protonix) 40 mg DAILY ORAL 05/13/17 09:00 06/12/17 08:59 05/13/17 08:37 Prednisone (predniSONE) 40 mg DAILY ORAL 05/08/17 09:00 06/07/17 08:59 05/13/17 08:37 Rifaximin (Xifaxan) 550 mg EVERY 12 HOURS ORAL 05/06/17 21:00 06/04/17 21:29 05/13/17 08:37 PERCY DALTON May 13, 2017 16:43
--- NOTE | 2017-05-13 18:04 | General Progress Note ---
Assessment/Plan Status: stable, progressing Assessment/Plan encephalopathy improving alcohol dependence -cont ativan a remeron 15mg qhs Subjective Neurologic/Psychiatric: Reports: anxiety, depressed, emotional problems Allergies: Coded Allergies: No Known Allergies (Unverified , 04/29/17) Subjective the pt is more anxious he had a night terror Objective Last 24 Hour Vital Signs Date Time Temp Pulse Resp B/P (MAP) Pulse Ox O2 Delivery O2 Flow Rate FiO2 05/13/17 15:46 98.0 70 20 114/58 96 Nasal Cannula 3.0 05/13/17 12:15 98.2 83 21 117/71 95 Room Air 05/13/17 09:15 97.6 77 21 123/69 96 Nasal Cannula 2.0 05/13/17 08:15 97.6 77 21 123/69 96 Nasal Cannula 2.0 05/13/17 08:05 Nasal Cannula 2.0 28 05/13/17 08:05 96 Nasal Cannula 2.0 28 05/13/17 04:00 97.7 76 21 119/72 100 Room Air 05/13/17 00:00 98.2 65 20 107/56 95 Nasal Cannula 2.0 05/12/17 20:04 Nasal Cannula 2.0 28 05/12/17 20:04 91 Nasal Cannula 2.0 28 05/12/17 20:00 97.7 79 20 125/67 93 Nasal Cannula 3.0 Intake and Output 05/13/17 05/14/17 19:00 07:00 Intake Total 480 ml Output Total 250 ml Balance 230 ml Intake Oral 480 ml Output Urine Total 250 ml # Bowel Movements 5 Laboratory Tests 05/13/17 07:12: White Blood Count 24.1*H, Red Blood Count 2.69L, Hemoglobin 9.9L, Hematocrit 31.5L, Mean Corpuscular Volume 117H, Mean Corpuscular Hemoglobin 36.9H, Mean Corpuscular Hemoglobin Concent 31.4L, Red Cell Distribution Width 17.2H, Platelet Count 187, Mean Platelet Volume 7.8, Neutrophils (%) (Auto) , Lymphocytes (%) (Auto) , Monocytes (%) (Auto) , Eosinophils (%) (Auto) , Basophils (%) (Auto) , Differential Total Cells Counted 100, Neutrophils % ( Manual) 92H, Lymphocytes % (Manual) 1L, Monocytes % (Manual) 6, Eosinophils % ( Manual) 0, Basophils % (Manual) 0, Band Neutrophils 1, Platelet Estimate Adequate, Platelet Morphology Normal, Hypochromasia 1+, Anisocytosis 1+, Macrocytosis 1+, Sodium Level 140, Potassium Level 4.2, Chloride Level 106, Carbon Dioxide Level 24, Anion Gap 10, Blood Urea Nitrogen 36H, Creatinine 1.5H , Estimat Glomerular Filtration Rate 51.8, Glucose Level 135H, Uric Acid 4.6, Calcium Level 8.5, Phosphorus Level 4.0, Magnesium Level 1.9, Total Bilirubin 19.4H, Direct Bilirubin 17.1H, Aspartate Amino Transf (AST/SGOT) 147H, Alanine Aminotransferase (ALT/SGPT) 88H, Alkaline Phosphatase 466H, Ammonia 43H, C- Reactive Protein, Quantitative 5.0H, Pro-B-Type Natriuretic Peptide 936H, Total Protein 5.2L, Albumin 1.5L, Globulin 3.7, Albumin/Globulin Ratio 0.4L Height (Feet): 5 Height (Inches): 8.00 Weight (Pounds): 205 General Appearance: no apparent distress, alert, overweight Neurologic: alert, oriented x 3, responsive, depressed affect Trino Kirby M.D. May 13, 2017 18:04
--- NOTE | 2017-05-13 20:34 | General Progress Note ---
Assessment/Plan Problem List: (1) Jaundice of recent onset ICD Codes: R17 - Unspecified jaundice SNOMED: 63503448 (2) Ascites due to alcoholic cirrhosis ICD Codes: K70.31 - Alcoholic cirrhosis of liver with ascites SNOMED: 1453522832098795 (3) etoh withdrawal (4) depression (5) Pneumonia ICD Codes: J18.9 - Pneumonia, unspecified organism SNOMED: 499101103 Status: progressing Assessment/Plan etoh cirrhosis ascitest persistent jaundice due to cirrhosis per gi poor prognosis no change Subjective ROS Limited/Unobtainable: Yes Allergies: Coded Allergies: No Known Allergies (Unverified , 04/29/17) Objective Last 24 Hour Vital Signs Date Time Temp Pulse Resp B/P (MAP) Pulse Ox O2 Delivery O2 Flow Rate FiO2 05/13/17 15:46 98.0 70 20 114/58 96 Nasal Cannula 3.0 05/13/17 12:15 98.2 83 21 117/71 95 Room Air 05/13/17 09:15 97.6 77 21 123/69 96 Nasal Cannula 2.0 05/13/17 08:15 97.6 77 21 123/69 96 Nasal Cannula 2.0 05/13/17 08:05 Nasal Cannula 2.0 28 05/13/17 08:05 96 Nasal Cannula 2.0 28 05/13/17 04:00 97.7 76 21 119/72 100 Room Air 05/13/17 00:00 98.2 65 20 107/56 95 Nasal Cannula 2.0 Intake and Output 05/13/17 05/14/17 19:00 07:00 Intake Total 480 ml Output Total 250 ml Balance 230 ml Intake Oral 480 ml Output Urine Total 250 ml # Bowel Movements 5 Laboratory Tests 05/13/17 07:12: White Blood Count 24.1*H, Red Blood Count 2.69L, Hemoglobin 9.9L, Hematocrit 31.5L, Mean Corpuscular Volume 117H, Mean Corpuscular Hemoglobin 36.9H, Mean Corpuscular Hemoglobin Concent 31.4L, Red Cell Distribution Width 17.2H, Platelet Count 187, Mean Platelet Volume 7.8, Neutrophils (%) (Auto) , Lymphocytes (%) (Auto) , Monocytes (%) (Auto) , Eosinophils (%) (Auto) , Basophils (%) (Auto) , Differential Total Cells Counted 100, Neutrophils % ( Manual) 92H, Lymphocytes % (Manual) 1L, Monocytes % (Manual) 6, Eosinophils % ( Manual) 0, Basophils % (Manual) 0, Band Neutrophils 1, Platelet Estimate Adequate, Platelet Morphology Normal, Hypochromasia 1+, Anisocytosis 1+, Macrocytosis 1+, Sodium Level 140, Potassium Level 4.2, Chloride Level 106, Carbon Dioxide Level 24, Anion Gap 10, Blood Urea Nitrogen 36H, Creatinine 1.5H , Estimat Glomerular Filtration Rate 51.8, Glucose Level 135H, Uric Acid 4.6, Calcium Level 8.5, Phosphorus Level 4.0, Magnesium Level 1.9, Total Bilirubin 19.4H, Direct Bilirubin 17.1H, Aspartate Amino Transf (AST/SGOT) 147H, Alanine Aminotransferase (ALT/SGPT) 88H, Alkaline Phosphatase 466H, Ammonia 43H, C- Reactive Protein, Quantitative 5.0H, Pro-B-Type Natriuretic Peptide 936H, Total Protein 5.2L, Albumin 1.5L, Globulin 3.7, Albumin/Globulin Ratio 0.4L Height (Feet): 5 Height (Inches): 8.00 Weight (Pounds): 205 Sunday Choi MD May 13, 2017 20:34
--- NOTE | 2017-05-13 22:17 | Cardiology Progress Note ---
Assessment/Plan Assessment/Plan 1. Sinus tachycardia, resolved, due to intravascular volume depletion due to hypo-albuminemia, continue Inderal, normal LVEF. 2. Mild pulmonary HTN. 3. 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 4. QAMAR, creatinine is slightly better 5. Leukocytosis. Subjective Subjective No chest pain or SOB. Objective Last 24 Hour Vital Signs Date Time Temp Pulse Resp B/P (MAP) Pulse Ox O2 Delivery O2 Flow Rate FiO2 05/13/17 21:05 Nasal Cannula 2.0 28 05/13/17 21:05 95 Nasal Cannula 2.0 28 05/13/17 20:00 98.8 88 20 117/73 90 Room Air 05/13/17 15:46 98.0 70 20 114/58 96 Nasal Cannula 3.0 05/13/17 12:15 98.2 83 21 117/71 95 Room Air 05/13/17 09:15 97.6 77 21 123/69 96 Nasal Cannula 2.0 05/13/17 08:15 97.6 77 21 123/69 96 Nasal Cannula 2.0 05/13/17 08:05 Nasal Cannula 2.0 28 05/13/17 08:05 96 Nasal Cannula 2.0 28 05/13/17 04:00 97.7 76 21 119/72 100 Room Air 05/13/17 00:00 98.2 65 20 107/56 95 Nasal Cannula 2.0 Intake and Output 05/13/17 05/14/17 19:00 07:00 Intake Total 480 ml Output Total 250 ml Balance 230 ml Intake Oral 480 ml Output Urine Total 250 ml # Bowel Movements 5 2D Echo: LVEF at 55%, RVSP 45 mmHg Laboratory Tests Test 05/13/17 07:12 White Blood Count 24.1 K/UL (4.8-10.8) *H Red Blood Count 2.69 M/UL (4.70-6.10) L Hemoglobin 9.9 G/DL (14.2-18.0) L Hematocrit 31.5 % (42.0-52.0) L Mean Corpuscular Volume 117 FL (80-99) H Mean Corpuscular Hemoglobin 36.9 PG (27.0-31.0) H Mean Corpuscular Hemoglobin Concent 31.4 G/DL (32.0-36.0) L Red Cell Distribution Width 17.2 % (11.6-14.8) H Platelet Count 187 K/UL (150-450) Mean Platelet Volume 7.8 FL (6.5-10.1) Neutrophils (%) (Auto) % (45.0-75.0) Lymphocytes (%) (Auto) % (20.0-45.0) Monocytes (%) (Auto) % (1.0-10.0) Eosinophils (%) (Auto) % (0.0-3.0) Basophils (%) (Auto) % (0.0-2.0) Differential Total Cells Counted 100 Neutrophils % (Manual) 92 % (45-75) H Lymphocytes % (Manual) 1 % (20-45) L Monocytes % (Manual) 6 % (1-10) Eosinophils % (Manual) 0 % (0-3) Basophils % (Manual) 0 % (0-2) Band Neutrophils 1 % (0-8) Platelet Estimate Adequate Platelet Morphology Normal Hypochromasia 1+ Anisocytosis 1+ Macrocytosis 1+ Sodium Level 140 MMOL/L (136-145) Potassium Level 4.2 MMOL/L (3.5-5.1) Chloride Level 106 MMOL/L (98-107) Carbon Dioxide Level 24 MMOL/L (21-32) Anion Gap 10 mmol/L (5-15) Blood Urea Nitrogen 36 mg/dL (7-18) H Creatinine 1.5 MG/DL (0.55-1.30) H Estimat Glomerular Filtration Rate 51.8 mL/min (>60) Glucose Level 135 MG/DL (74-106) H Uric Acid 4.6 MG/DL (2.6-7.2) Calcium Level 8.5 MG/DL (8.5-10.1) Phosphorus Level 4.0 MG/DL (2.5-4.9) Magnesium Level 1.9 MG/DL (1.8-2.4) Total Bilirubin 19.4 MG/DL (0.2-1.0) H Direct Bilirubin 17.1 MG/DL (0.0-0.3) H Aspartate Amino Transf (AST/SGOT) 147 U/L (15-37) H Alanine Aminotransferase (ALT/SGPT) 88 U/L (12-78) H Alkaline Phosphatase 466 U/L (46-116) H Ammonia 43 umol/L (11.2-31.7) H C-Reactive Protein, Quantitative 5.0 mg/dL (0.00-0.90) H Pro-B-Type Natriuretic Peptide 936 pg/mL (0-125) H Total Protein 5.2 G/DL (6.4-8.2) L Albumin 1.5 G/DL (3.4-5.0) L Globulin 3.7 g/dL Albumin/Globulin Ratio 0.4 (1.0-2.7) L Microbiology Date/Time Source Procedure Growth Status 05/12/17 19:00 Stool Clostridium difficile Toxin Assay - Final Complete 05/12/17 12:10 Urine,Clean Catch Urine Culture - Preliminary Gram Negative Bacillus 1 Resulted Objective HEENT: Head is normocephalic. PERRLA, EOMI. Eyes show scleral icterus. NECK: JVD is negative, no carotid bruit, carotid upstroke 2+ B/L LUNGS: Decreased breath sounds in the bases. CARDIAC: Rhythm is regular. Tachycardia, no murmurs, gallops or rubs. ABDOMEN: Distended, soft and nontender. There is a fluid wave noted. EXTREMITIES: No clubbing or cyanosis. There is 2+ edema. YAQUELIN HARDY May 13, 2017 22:17
[2017-05-14] VITALS: BP 103/58
[2017-05-14] MEDS: Cefepime HCl 2 GM in D5W 110 ML IVPB SCH ×2 (03:07→14:07)
[2017-05-14 04:00] VITALS: BP 122/70
[2017-05-14] MEDS: SandoSTATIN 100mcg/ml amp SUBQ SCH ×2 (05:19→13:00)
[2017-05-14 07:57] VITALS: BP 124/81
[2017-05-14] MEDS: Midodrine 10mg tab ORAL SCH ×3 (08:42→18:00)
[2017-05-14] MEDS: Lactulose 20gm/30ml UDC ORAL SCH (08:43)
--- NOTE | 2017-05-14 08:57 | Diagnostic Imaging Report ---
APPROVED REPORT CPT Code: 96491 Present Symptoms Lower Extremity Edema: Bilateral BILATERAL: Imaging reveals a patent deep venous system bilaterally. There is no evidence of thrombus within the femoral, popliteal or tibial segments. The greater saphenous veins are also within normal limits. Doppler indicates normal spontaneous flow within these segments.
--- NOTE | 2017-05-14 11:17 | General Progress Note ---
Assessment/Plan Status: stable - from renal stand Status Narrative Cr 1.5 Assessment/Plan status: renal failure on admit , likely hepatorenal- Cr now normalized low Na due to anasarca Low K Jaundice Anemia high Lipase High lactic low alb Plan; per GI- transfuse as needed monitor renal parameters- monitor lytes- poor prognosis- DC planning if no other GI plans scheduled Subjective ROS Limited/Unobtainable: No Constitutional: Reports: malaise Allergies: Coded Allergies: No Known Allergies (Unverified , 04/29/17) Objective Last 24 Hour Vital Signs Date Time Temp Pulse Resp B/P (MAP) Pulse Ox O2 Delivery O2 Flow Rate FiO2 05/14/17 07:57 98.2 95 20 124/81 95 Nasal Cannula 3.0 05/14/17 06:55 Nasal Cannula 2.0 28 05/14/17 06:55 96 Nasal Cannula 2.0 28 05/14/17 04:00 97.6 77 19 122/70 95 Room Air 05/14/17 00:00 98.6 70 20 103/58 93 Room Air 05/13/17 21:05 Nasal Cannula 2.0 28 05/13/17 21:05 95 Nasal Cannula 2.0 28 05/13/17 20:00 98.8 88 20 117/73 90 Room Air 05/13/17 15:46 98.0 70 20 114/58 96 Nasal Cannula 3.0 05/13/17 12:15 98.2 83 21 117/71 95 Room Air Intake and Output 05/14/17 05/15/17 19:00 07:00 # Bowel Movements 3 Height (Feet): 5 Height (Inches): 8.00 Weight (Pounds): 205 General Appearance: no apparent distress EENT: scleral icterus Respiratory/Chest: decreased breath sounds Abdomen: distended Objective anasarca- PE not changed MIKAELA AYOUB May 14, 2017 11:16
--- NOTE | 2017-05-14 11:21 | GI Progress Note ---
Assessment/Plan Problems: (1) Jaundice of recent onset ICD Codes: R17 - Unspecified jaundice SNOMED: 01880995 (2) etoh withdrawal (3) depression (4) Pneumonia ICD Codes: J18.9 - Pneumonia, unspecified organism SNOMED: 126329519 (5) Acalculous cholecystitis ICD Codes: K81.9 - Cholecystitis, unspecified SNOMED: 72379231 (6) Ascites due to alcoholic cirrhosis ICD Codes: K70.31 - Alcoholic cirrhosis of liver with ascites SNOMED: 6062443475939913 (7) Alcohol abuse ICD Codes: F10.10 - Alcohol abuse, uncomplicated SNOMED: 31980861 Status: stable Status Narrative Discussed with Dr. Daly. Assessment/Plan venous duplex r/o DVT given BLE edema >> negative patient for discharge today, will follow up with us in clinic. - rx written for prednisone taper, lactulose, midodrine and octreotide. dc propranolol cont midodrine and octreotide given elevated creatinine elevated ammonia >> lactulose + Xifaxan low sodium diet prednisone 40mg x 28 days, start taper on 05/27/17. monitor LFTs not transplant candidate given active drinking ppi Subjective Subjective worked with PT feels better overall Objective Last 24 Hour Vital Signs Date Time Temp Pulse Resp B/P (MAP) Pulse Ox O2 Delivery O2 Flow Rate FiO2 05/14/17 07:57 98.2 95 20 124/81 95 Nasal Cannula 3.0 05/14/17 06:55 Nasal Cannula 2.0 28 05/14/17 06:55 96 Nasal Cannula 2.0 28 05/14/17 04:00 97.6 77 19 122/70 95 Room Air 05/14/17 00:00 98.6 70 20 103/58 93 Room Air 05/13/17 21:05 Nasal Cannula 2.0 28 05/13/17 21:05 95 Nasal Cannula 2.0 28 05/13/17 20:00 98.8 88 20 117/73 90 Room Air 05/13/17 15:46 98.0 70 20 114/58 96 Nasal Cannula 3.0 05/13/17 12:15 98.2 83 21 117/71 95 Room Air Intake and Output 05/14/17 05/15/17 19:00 07:00 # Bowel Movements 3 Height (Feet): 5 Height (Inches): 8.00 Weight (Pounds): 205 General Appearance: WD/WN, no apparent distress, alert Cardiovascular: normal rate Respiratory/Chest: normal breath sounds, no respiratory distress Abdominal Exam: normal bowel sounds, non tender, soft Extremities: normal range of motion, non-tender, other - BLE edema Objective Jaundice Danay Grady N.P. May 14, 2017 11:21
[2017-05-14 11:40] VITALS: BP 115/67
[2017-05-14 12:12] LABS: MEAN CORPUSCULAR HEMOGLOBIN 36.8 PG (27.0-31.0); MEAN CORPUSCULAR HGB CONC 31.1 G/DL (32.0-36.0); MEAN CORPUSCULAR VOLUME 118 FL (80-99); MEAN PLATELET VOLUME 7.9 FL (6.5-10.1); PLATELET COUNT 204 K/UL (150-450); RED BLOOD COUNT 2.57 M/UL (4.70-6.10); RED CELL DISTRIBUTION WIDTH 16.7 % (11.6-14.8)
[2017-05-14 12:31] LABS: ANISOCYTOSIS 1+; BAND NEUTROPHILS % (MANUAL) 3 % (0-8); BASOPHILS % (MANUAL) 0 % (0-2); EOSINOPHILS % (MANUAL) 0 % (0-3); HYPOCHROMASIA 1+; LYMPHOCYTES % (MANUAL) 5 % (20-45); MACROCYTES 1+; NEUTROPHILS % (MANUAL) 85 % (45-75); PLATELET ESTIMATE ADEQUATE; PLATELET MORPHOLOGY NORMAL; TOTAL CELLS COUNTED 100
[2017-05-14 12:48] LABS: ALANINE AMINOTRANSFERASE 79 U/L (12-78); ALBUMIN/GLOBULIN RATIO 0.4 (1.0-2.7); ANION GAP 11 mmol/L (5-15); ASPARTATE AMINO TRANSFERASE 122 U/L (15-37); CALCIUM 8.1 MG/DL (8.5-10.1); CARBON DIOXIDE 23 MMOL/L (21-32); CHLORIDE 107 MMOL/L (98-107); CREATININE 1.6 MG/DL (0.55-1.30); GLOMERULAR FILTRATION RATE 48.1 mL/min (>60); POTASSIUM 4.7 MMOL/L (3.5-5.1); SODIUM 141 MMOL/L (136-145); TOTAL PROTEIN 4.7 G/DL (6.4-8.2)
[2017-05-14 16:00] VITALS: BP 112/59
--- NOTE | 2017-05-14 17:38 | Infectious Diseases Prog Note ---
Assessment/Plan Problems: (1) Leukocytosis Assessment & Plan: Sepsis versus SIRS. WBC still elevated. Has pyuria. Cultures noted. Status post a course of Unasyn for acalculous cholecystitis versus pneumonia versus UTI. Follow-up WBC. Overall clinically stable. (2) Pyuria Assessment & Plan: UCx noted. Even though clinically stable, given overall comorbidities, will transition to PO Bactrim to finish a 7-day course. (3) Liver cirrhosis, alcoholic (4) Ascites due to alcoholic cirrhosis (5) Jaundice of recent onset (6) Alcohol abuse (7) Pancreatitis Assessment & Plan: Lipase and amylase up again. (8) QAMAR (acute kidney injury) Assessment & Plan: Cr stable. Subjective Allergies: Coded Allergies: No Known Allergies (Unverified , 04/29/17) Objective Vital Signs Last 24 Hour Vital Signs Date Time Temp Pulse Resp B/P (MAP) Pulse Ox O2 Delivery O2 Flow Rate FiO2 05/14/17 16:00 98.2 78 20 112/59 89 Room Air 05/14/17 11:40 97.0 86 20 115/67 93 Room Air 05/14/17 07:57 98.2 95 20 124/81 95 Nasal Cannula 3.0 05/14/17 06:55 Nasal Cannula 2.0 28 05/14/17 06:55 96 Nasal Cannula 2.0 28 05/14/17 04:00 97.6 77 19 122/70 95 Room Air 05/14/17 00:00 98.6 70 20 103/58 93 Room Air 05/13/17 21:05 Nasal Cannula 2.0 28 05/13/17 21:05 95 Nasal Cannula 2.0 28 05/13/17 20:00 98.8 88 20 117/73 90 Room Air Height (Feet): 5 Height (Inches): 8.00 Weight (Pounds): 205 Microbiology Date/Time Source Procedure Growth Status 05/12/17 14:30 Blood Blood Culture - Preliminary NO GROWTH AFTER 24 HOURS Resulted 05/12/17 14:30 Blood Blood Culture - Preliminary NO GROWTH AFTER 24 HOURS Resulted 05/12/17 19:00 Stool Clostridium difficile Toxin Assay - Final Complete 05/12/17 12:10 Urine,Clean Catch Urine Culture - Preliminary Klebsiella Oxytoca Resulted Laboratory Tests Test 05/14/17 11:50 White Blood Count 25.0 K/UL (4.8-10.8) *H Red Blood Count 2.57 M/UL (4.70-6.10) L Hemoglobin 9.5 G/DL (14.2-18.0) L Hematocrit 30.4 % (42.0-52.0) L Mean Corpuscular Volume 118 FL (80-99) H Mean Corpuscular Hemoglobin 36.8 PG (27.0-31.0) H Mean Corpuscular Hemoglobin Concent 31.1 G/DL (32.0-36.0) L Red Cell Distribution Width 16.7 % (11.6-14.8) H Platelet Count 204 K/UL (150-450) Mean Platelet Volume 7.9 FL (6.5-10.1) Neutrophils (%) (Auto) % (45.0-75.0) Lymphocytes (%) (Auto) % (20.0-45.0) Monocytes (%) (Auto) % (1.0-10.0) Eosinophils (%) (Auto) % (0.0-3.0) Basophils (%) (Auto) % (0.0-2.0) Differential Total Cells Counted 100 Neutrophils % (Manual) 85 % (45-75) H Lymphocytes % (Manual) 5 % (20-45) L Monocytes % (Manual) 7 % (1-10) Eosinophils % (Manual) 0 % (0-3) Basophils % (Manual) 0 % (0-2) Band Neutrophils 3 % (0-8) Platelet Estimate Adequate Platelet Morphology Normal Hypochromasia 1+ Anisocytosis 1+ Macrocytosis 1+ Sodium Level 141 MMOL/L (136-145) Potassium Level 4.7 MMOL/L (3.5-5.1) Chloride Level 107 MMOL/L (98-107) Carbon Dioxide Level 23 MMOL/L (21-32) Anion Gap 11 mmol/L (5-15) Blood Urea Nitrogen 35 mg/dL (7-18) H Creatinine 1.6 MG/DL (0.55-1.30) H Estimat Glomerular Filtration Rate 48.1 mL/min (>60) Glucose Level 155 MG/DL (74-106) H Calcium Level 8.1 MG/DL (8.5-10.1) L Total Bilirubin 17.4 MG/DL (0.2-1.0) H Direct Bilirubin 15.0 MG/DL (0.0-0.3) H Aspartate Amino Transf (AST/SGOT) 122 U/L (15-37) H Alanine Aminotransferase (ALT/SGPT) 79 U/L (12-78) H Alkaline Phosphatase 398 U/L (46-116) H Total Protein 4.7 G/DL (6.4-8.2) L Albumin 1.4 G/DL (3.4-5.0) L Globulin 3.3 g/dL Albumin/Globulin Ratio 0.4 (1.0-2.7) L Current Medications Medications (Trade) Dose Ordered Sig/Leonard Route PRN Reason Start Time Stop Time Status Last Admin Dose Admin Cefepime HCl 2 gm/ Sodium Chloride 110 ml @ 220 mls/hr Q12HR@0200,1400 IVPB 05/15/17 02:00 05/22/17 01:59 Lactulose (Cephulac) 30 gm DAILY ORAL 05/07/17 09:00 05/31/17 13:29 05/13/17 08:37 Lorazepam (Ativan) 1 mg Q6H PRN ORAL For Anxiety 05/12/17 12:15 05/19/17 12:14 05/12/17 12:32 Midodrine (Pro-Amatine) 10 mg THREE TIMES A DAY ORAL 05/12/17 13:00 06/11/17 12:59 05/14/17 13:00 Mirtazapine (Remeron) 15 mg BEDTIME ORAL 05/07/17 21:00 06/06/17 20:59 05/13/17 21:09 Octreotide Acetate (SandoSTATIN) 100 mcg Q8HR SUBQ 05/12/17 14:00 06/11/17 13:59 05/14/17 13:00 Pantoprazole (Protonix) 40 mg DAILY ORAL 05/13/17 09:00 06/12/17 08:59 05/14/17 08:41 Prednisone (predniSONE) 40 mg DAILY ORAL 05/08/17 09:00 06/07/17 08:59 05/14/17 08:42 Rifaximin (Xifaxan) 550 mg EVERY 12 HOURS ORAL 05/06/17 21:00 06/04/17 21:29 05/14/17 08:42 PERCY DALTON May 14, 2017 17:38
--- NOTE | 2017-05-14 21:56 | General Progress Note ---
Assessment/Plan Assessment/Plan Assessment and Plan # Anemia of alcoholic myelosuppression, liver disease, end-stage, due to chronic disease ---> anemia w/u has been reviewed --> improving --> s/p transfusion, hgb goal >7 # Coagulopathy - 2/2 liver disease and underlying cirrhosis # Leukocytosis likely reactive from steroids # Thrombocytopenia is due to cirrhosis, liver involvement and splenomegaly # Hyperbilibirubinemia - 2/2 etoh abuse, liver cirrhosis # ETOH withdrawal # PNA # Jaundice of recent onset with severe hyperbilirubinemia. improved # Ascites s/p multiple paracenteses Subjective Allergies: Coded Allergies: No Known Allergies (Unverified , 04/29/17) All Systems: reviewed and negative except above Subjective no events overnight, wants to go home, feeling better Objective Last 24 Hour Vital Signs Date Time Temp Pulse Resp B/P (MAP) Pulse Ox O2 Delivery O2 Flow Rate FiO2 05/14/17 16:00 98.2 78 20 112/59 89 Room Air 05/14/17 11:40 97.0 86 20 115/67 93 Room Air 05/14/17 07:57 98.2 95 20 124/81 95 Nasal Cannula 3.0 05/14/17 06:55 Nasal Cannula 2.0 28 05/14/17 06:55 96 Nasal Cannula 2.0 28 05/14/17 04:00 97.6 77 19 122/70 95 Room Air 05/14/17 00:00 98.6 70 20 103/58 93 Room Air Intake and Output 05/14/17 05/15/17 19:00 07:00 Intake Total 600 ml Output Total 300 ml Balance 300 ml Intake Oral 600 ml Output Urine Total 300 ml # Voids 2 # Bowel Movements 3 Laboratory Tests 05/14/17 11:50: White Blood Count 25.0*H, Red Blood Count 2.57L, Hemoglobin 9.5L, Hematocrit 30.4L, Mean Corpuscular Volume 118H, Mean Corpuscular Hemoglobin 36.8H, Mean Corpuscular Hemoglobin Concent 31.1L, Red Cell Distribution Width 16.7H, Platelet Count 204, Mean Platelet Volume 7.9, Neutrophils (%) (Auto) , Lymphocytes (%) (Auto) , Monocytes (%) (Auto) , Eosinophils (%) (Auto) , Basophils (%) (Auto) , Differential Total Cells Counted 100, Neutrophils % ( Manual) 85H, Lymphocytes % (Manual) 5L, Monocytes % (Manual) 7, Eosinophils % ( Manual) 0, Basophils % (Manual) 0, Band Neutrophils 3, Platelet Estimate Adequate, Platelet Morphology Normal, Hypochromasia 1+, Anisocytosis 1+, Macrocytosis 1+, Sodium Level 141, Potassium Level 4.7, Chloride Level 107, Carbon Dioxide Level 23, Anion Gap 11, Blood Urea Nitrogen 35H, Creatinine 1.6H , Estimat Glomerular Filtration Rate 48.1, Glucose Level 155H, Calcium Level 8.1L, Total Bilirubin 17.4H, Direct Bilirubin 15.0H, Aspartate Amino Transf (AST /SGOT) 122H, Alanine Aminotransferase (ALT/SGPT) 79H, Alkaline Phosphatase 398H , Total Protein 4.7L, Albumin 1.4L, Globulin 3.3, Albumin/Globulin Ratio 0.4L Height (Feet): 5 Height (Inches): 8.00 Weight (Pounds): 205 General Appearance: no apparent distress Neck: normal inspection Cardiovascular: regular rhythm Respiratory/Chest: normal breath sounds Skin: warm/dry Joshua Hurley May 14, 2017 21:56
--- NOTE | 2017-05-14 22:55 | General Progress Note ---
Assessment/Plan Status: stable, progressing Assessment/Plan encephalopathy improving alcohol dependence -cont ativan a remeron 15mg qhs Subjective Constitutional: Reports: malaise, weakness Neurologic/Psychiatric: Reports: anxiety, depressed, emotional problems Allergies: Coded Allergies: No Known Allergies (Unverified , 04/29/17) Subjective the pt is more anxious he had a night terror Objective Last 24 Hour Vital Signs Date Time Temp Pulse Resp B/P (MAP) Pulse Ox O2 Delivery O2 Flow Rate FiO2 05/14/17 16:00 98.2 78 20 112/59 89 Room Air 05/14/17 11:40 97.0 86 20 115/67 93 Room Air 05/14/17 07:57 98.2 95 20 124/81 95 Nasal Cannula 3.0 05/14/17 06:55 Nasal Cannula 2.0 28 05/14/17 06:55 96 Nasal Cannula 2.0 28 05/14/17 04:00 97.6 77 19 122/70 95 Room Air 05/14/17 00:00 98.6 70 20 103/58 93 Room Air Intake and Output 05/14/17 05/15/17 19:00 07:00 Intake Total 600 ml Output Total 300 ml Balance 300 ml Intake Oral 600 ml Output Urine Total 300 ml # Voids 2 # Bowel Movements 3 Laboratory Tests 05/14/17 11:50: White Blood Count 25.0*H, Red Blood Count 2.57L, Hemoglobin 9.5L, Hematocrit 30.4L, Mean Corpuscular Volume 118H, Mean Corpuscular Hemoglobin 36.8H, Mean Corpuscular Hemoglobin Concent 31.1L, Red Cell Distribution Width 16.7H, Platelet Count 204, Mean Platelet Volume 7.9, Neutrophils (%) (Auto) , Lymphocytes (%) (Auto) , Monocytes (%) (Auto) , Eosinophils (%) (Auto) , Basophils (%) (Auto) , Differential Total Cells Counted 100, Neutrophils % ( Manual) 85H, Lymphocytes % (Manual) 5L, Monocytes % (Manual) 7, Eosinophils % ( Manual) 0, Basophils % (Manual) 0, Band Neutrophils 3, Platelet Estimate Adequate, Platelet Morphology Normal, Hypochromasia 1+, Anisocytosis 1+, Macrocytosis 1+, Sodium Level 141, Potassium Level 4.7, Chloride Level 107, Carbon Dioxide Level 23, Anion Gap 11, Blood Urea Nitrogen 35H, Creatinine 1.6H , Estimat Glomerular Filtration Rate 48.1, Glucose Level 155H, Calcium Level 8.1L, Total Bilirubin 17.4H, Direct Bilirubin 15.0H, Aspartate Amino Transf (AST /SGOT) 122H, Alanine Aminotransferase (ALT/SGPT) 79H, Alkaline Phosphatase 398H , Total Protein 4.7L, Albumin 1.4L, Globulin 3.3, Albumin/Globulin Ratio 0.4L Height (Feet): 5 Height (Inches): 8.00 Weight (Pounds): 205 General Appearance: no apparent distress, alert, obese Neurologic: alert, oriented x 3, responsive, depressed affect Trino Kirby M.D. May 14, 2017 22:55
--- NOTE | 2017-05-14 23:44 | Cardiology Progress Note ---
Assessment/Plan Assessment/Plan 1. Sinus tachycardia, resolved, due to intravascular volume depletion due to hypo-albuminemia, continue Inderal, normal LVEF. 2. Mild pulmonary HTN. Subjective Subjective Denies chest pain or SOB. Objective Last 24 Hour Vital Signs Date Time Temp Pulse Resp B/P (MAP) Pulse Ox O2 Delivery O2 Flow Rate FiO2 05/14/17 16:00 98.2 78 20 112/59 89 Room Air 05/14/17 11:40 97.0 86 20 115/67 93 Room Air 05/14/17 07:57 98.2 95 20 124/81 95 Nasal Cannula 3.0 05/14/17 06:55 Nasal Cannula 2.0 28 05/14/17 06:55 96 Nasal Cannula 2.0 28 05/14/17 04:00 97.6 77 19 122/70 95 Room Air 05/14/17 00:00 98.6 70 20 103/58 93 Room Air Intake and Output 05/14/17 05/15/17 19:00 07:00 Intake Total 600 ml Output Total 300 ml Balance 300 ml Intake Oral 600 ml Output Urine Total 300 ml # Voids 2 # Bowel Movements 3 2D Echo: LVEF at 55%, RVSP 45 mmHg Laboratory Tests Test 05/14/17 11:50 White Blood Count 25.0 K/UL (4.8-10.8) *H Red Blood Count 2.57 M/UL (4.70-6.10) L Hemoglobin 9.5 G/DL (14.2-18.0) L Hematocrit 30.4 % (42.0-52.0) L Mean Corpuscular Volume 118 FL (80-99) H Mean Corpuscular Hemoglobin 36.8 PG (27.0-31.0) H Mean Corpuscular Hemoglobin Concent 31.1 G/DL (32.0-36.0) L Red Cell Distribution Width 16.7 % (11.6-14.8) H Platelet Count 204 K/UL (150-450) Mean Platelet Volume 7.9 FL (6.5-10.1) Neutrophils (%) (Auto) % (45.0-75.0) Lymphocytes (%) (Auto) % (20.0-45.0) Monocytes (%) (Auto) % (1.0-10.0) Eosinophils (%) (Auto) % (0.0-3.0) Basophils (%) (Auto) % (0.0-2.0) Differential Total Cells Counted 100 Neutrophils % (Manual) 85 % (45-75) H Lymphocytes % (Manual) 5 % (20-45) L Monocytes % (Manual) 7 % (1-10) Eosinophils % (Manual) 0 % (0-3) Basophils % (Manual) 0 % (0-2) Band Neutrophils 3 % (0-8) Platelet Estimate Adequate Platelet Morphology Normal Hypochromasia 1+ Anisocytosis 1+ Macrocytosis 1+ Sodium Level 141 MMOL/L (136-145) Potassium Level 4.7 MMOL/L (3.5-5.1) Chloride Level 107 MMOL/L (98-107) Carbon Dioxide Level 23 MMOL/L (21-32) Anion Gap 11 mmol/L (5-15) Blood Urea Nitrogen 35 mg/dL (7-18) H Creatinine 1.6 MG/DL (0.55-1.30) H Estimat Glomerular Filtration Rate 48.1 mL/min (>60) Glucose Level 155 MG/DL (74-106) H Calcium Level 8.1 MG/DL (8.5-10.1) L Total Bilirubin 17.4 MG/DL (0.2-1.0) H Direct Bilirubin 15.0 MG/DL (0.0-0.3) H Aspartate Amino Transf (AST/SGOT) 122 U/L (15-37) H Alanine Aminotransferase (ALT/SGPT) 79 U/L (12-78) H Alkaline Phosphatase 398 U/L (46-116) H Total Protein 4.7 G/DL (6.4-8.2) L Albumin 1.4 G/DL (3.4-5.0) L Globulin 3.3 g/dL Albumin/Globulin Ratio 0.4 (1.0-2.7) L Microbiology Date/Time Source Procedure Growth Status 05/12/17 14:30 Blood Blood Culture - Preliminary NO GROWTH AFTER 24 HOURS Resulted 05/12/17 14:30 Blood Blood Culture - Preliminary NO GROWTH AFTER 24 HOURS Resulted 05/12/17 19:00 Stool Clostridium difficile Toxin Assay - Final Complete 05/12/17 12:10 Urine,Clean Catch Urine Culture - Preliminary Klebsiella Oxytoca Resulted Objective HEENT: Head is normocephalic. PERRLA, EOMI. Eyes show scleral icterus. NECK: JVD is negative, no carotid bruit, carotid upstroke 2+ B/L LUNGS: Decreased breath sounds in the bases. CARDIAC: Rhythm is regular. Tachycardia, no murmurs, gallops or rubs. ABDOMEN: Distended, soft and nontender. There is a fluid wave noted. EXTREMITIES: No clubbing or cyanosis. There is 2+ edema. YAQUELIN HARDY May 14, 2017 23:44
[2017-05-15] MEDS ORDERED: Cefepime HCl 2 GM in NS 110 ML IVPB SCH (02:00)
--- NOTE | 2017-05-16 13:04 | Discharge Summary ---
Discharge Summary Hospital Course Date of Admission Apr 29, 2017 at 17:42 Date of Discharge May 14, 2017 at 20:03 Admitting Diagnosis Liver Failure LATHA Mcmanus Brunner is a 42 year old male who was admitted on Apr 29, 2017 at 17:42 for Liver Failure Hospital Course [id number] Discharge Discharge Disposition Patient was discharged to Home with Home Health(06) Discharge Diagnoses: Carla Katz NP May 16, 2017 13:04
--- NOTE | 2017-05-17 01:45 | Discharge Summary 2 SIG ---
DATE OF ADMISSION: 04/29/2017 DATE OF DISCHARGE: 05/14/2017 CONSULTANTS: 1. Arnoldo Daly M.D. 2. Joshua Hurley M.D. 3. Jason Johnson M.D. 4. Jatinder Jauregui M.D. 5. Trino Kirby M.D. 6. Jennifer Tomlin M.D. 7. Alverto Latham M.D. 8. Solo Mcdowell M.D. 9. Demar Mcallister M.D. BRIEF HOSPITAL COURSE: The patient is a 42-year-old male with history of alcohol abuse and has been a heavy alcohol drinker presented to [facility] ER with shortness of breath and severe abdominal distention with discomfort. The patient noted jaundice and was not able to eat or drink for a couple of days and has became increasingly short of breath. In the ER, he was found to have significant ascites. He was hypoxemic and tachypneic and was placed on BiPAP. Chest x-ray showed markedly low lung volumes with bilateral interstitial and alveolar infiltrates and bilateral pleural effusion. Chest, abdominal and pelvic CT showed an enlarged liver suggestive of cirrhotic changes with evidence of portal hypertension related to ascites, splenomegaly and small varices. There is bilateral pleural effusion and bilateral lower lobe consolidation and pleural fluid. He was admitted to ICU with BiPAP. He was placed on banana bag with vitamin K and was given albumin. He is not a candidate for liver transplant secondary to active alcohol drinking. He had leukocytosis. Urinalysis showed 2+ leukocyte esterase with few bacteria and negative nitrite. He was started empirically on ceftriaxone. The patient was jaundiced. Hepatitis panel negative. Abdominal ultrasound showed hepatomegaly. There was presence of gallbladder sludge. No stones with gallbladder wall thickening, possible acute calculus cholecystitis not excludable. He underwent ultrasound-guided paracentesis on 04/29/2017 yielding 3.1 liters of bright yellow fluid. Culture did not isolate any growth. He was finally taken off BiPAP and was transitioned to mask and was eventually downgraded to nasal cannula. He came in with elevated creatinine. Sodium was 130. Renal failure present on admission was likely hepatorenal and hyponatremia was due to anasarca. Liver function tests were elevated. Ammonia was likewise elevated. He was given lactulose and Xifaxan. He was initially given propranolol, however, was discontinued. Blood pressure on the low side and was restarted on midodrine and octreotide. He was started on steroids. Venous duplex of lower extremity was negative for DVT. Urine culture showed growth of Klebsiella and was given IV Unasyn. Antibiotic was transition to p.o. Bactrim to finish a seven-day course of antibiotic treatment as outpatient. Sinus tachycardia was assessed to be due to intravascular volume depletion due to hypoalbuminemia. Tachycardia resolved. He had alcohol dependence and encephalopathy and was given Remeron 15 mg at bedtime. The patient has overall poor prognosis, although clinically stable. He was eventually discharged home. Advised to follow up with GI. Prescription for a tapering doses of prednisone was written. Advised to continue lactulose, midodrine and octreotide. The patient was discharged home with home health. FINAL DIAGNOSES: 1. Leukocytosis, possible systemic inflammatory response reaction. 2. Alcoholic cirrhosis. 3. Recurrent ascites requiring paracentesis. 4. Alcohol abuse. 5. Pneumonia. 6. Ethanol withdrawal. 7. Depression. 8. Anemia of alcoholic myelosuppression. 9. Coagulopathy secondary to liver disease. 10. Thrombocytopenia due to cirrhosis and splenomegaly. 11. Hyperbilirubinemia secondary to ethanol abuse and cirrhosis. 12. Acute renal failure. 13. Hyponatremia. 14. Hypokalemia. 15. Possible calculus cholecystitis. 16. Alcohol dependence. 17. Sinus tachycardia. 18. Mild pulmonary hypertension. 19. Encephalopathy. DISPOSITION: The patient was discharged home with home health. DISCHARGE MEDICATIONS: Continue with tapering doses of prednisone for 28 days. Continue with lactulose, midodrine and octreotide. Sunday Choi M.D. I have been assigned to dictate discharge summary on this account and I was not involved in the patient's management. Carla Katz N.P. DR: MARVA JOB#: [id number] CC: MADHU
== END 2017-05-14 20:03 | disposition home health service (06) | DRG 432 ==
LOC: EDBD 15:56 → EMR 16:55 → EDBEDREQ 17:18 → ICU 17:42 → EDBEDREQ 20:48 → 2W 05-01 20:10 → 4E 05-06 15:20
PROC: 0W9G3ZZ Drainage of Peritoneal Cavity, Percutaneous Approach (ICD-10-PCS; principal; 2017-04-29)
DX: K70.31 Alcoholic cirrhosis of liver with ascites (principal); K85.90 Acute pancreatitis without necrosis or infection, unspecified; K70.11 Alcoholic hepatitis with ascites; J96.00 Acute respiratory failure, unspecified whether with hypoxia or hypercapnia; K76.7 Hepatorenal syndrome; G93.40 Encephalopathy, unspecified; N17.9 Acute kidney failure, unspecified; J18.9 Pneumonia, unspecified organism; D68.9 Coagulation defect, unspecified; F10.239 Alcohol dependence with withdrawal, unspecified; E87.1 Hypo-osmolality and hyponatremia; K80.10 Calculus of gallbladder with chronic cholecystitis without obstruction; I95.9 Hypotension, unspecified; D69.6 Thrombocytopenia, unspecified; K70.40 Alcoholic hepatic failure without coma; D51.3 Other dietary vitamin B12 deficiency anemia; F32.9 Major depressive disorder, single episode, unspecified; E87.6 Hypokalemia; I27.20 Pulmonary hypertension, unspecified; R00.0 Tachycardia, unspecified; D72.829 Elevated white blood cell count, unspecified; F51.4 Sleep terrors [night terrors]
CPT/HCPCS: 36415; 70450; 71010; 71020; 71250; 74176; 76604; 76700; 76942; 80048; 80053; 80076; 80300; 81001; 81003; 82140; 82150; 82248; 82306; 82550; 82553; 82607; 82728; 82746; 82977; 83036; 83605; 83615; 83690; 83735; 83880; 83921; 84100; 84300; 84443; 84484; 84550; 85007; 85025; 85060; 85610; 85730; 86140; 86308; 86703; 86705; 86709; 86803; 86850; 86900; 86901; 86920; 87040; 87070; 87081; 87086; 87181; 87205; 87324; 87340; 89051; 93005; 93306; 93970; 94660; 94664; 94760; J3430

== ENCOUNTER 2017-05-24 11:18 | Inpatient (IN) | payer BC ==
[2017-05-24] VITALS (8 sets, daily range): BP systolic 108–152; BP diastolic 63–125
[~2017-05-24] VITALS: Ht 182.9 cm; Wt 100.7 kg
[~2017-05-24 11:18] MED LIST: EUCERIN CREAM15 GM TOPIC; PROVENTIL HFA6.7 G1 IH; THIAMINE HCL100 MG ORAL; VITAMIN D1000 UNI1 ORAL
[2017-05-24 12:00] LABS: MEAN CORPUSCULAR HEMOGLOBIN 36.4 PG (27.0-31.0); MEAN CORPUSCULAR HGB CONC 31.3 G/DL (32.0-36.0); MEAN CORPUSCULAR VOLUME 116 FL (80-99); MEAN PLATELET VOLUME 6.8 FL (6.5-10.1); PLATELET COUNT 186 K/UL (150-450); RED BLOOD COUNT 2.79 M/UL (4.70-6.10); RED CELL DISTRIBUTION WIDTH 15.9 % (11.6-14.8)
[2017-05-24 12:04] LABS: WHITE BLOOD COUNT 26.7 K/UL (4.8-10.8)
[2017-05-24 12:11] LABS: INR 1.6 (0.9-1.1); PROTHROMBIN TIME 16.4 SEC (9.30-11.50)
[2017-05-24 12:25] LABS: ALANINE AMINOTRANSFERASE 94 U/L (12-78); ALBUMIN/GLOBULIN RATIO 0.4 (1.0-2.7); ANION GAP 8 mmol/L (5-15); ASPARTATE AMINO TRANSFERASE 139 U/L (15-37); CALCIUM 8.4 MG/DL (8.5-10.1); CARBON DIOXIDE 24 MMOL/L (21-32); CHLORIDE 104 MMOL/L (98-107); CREATININE 1.6 MG/DL (0.55-1.30); GLOMERULAR FILTRATION RATE 48.1 mL/min (>60); POTASSIUM 5.3 MMOL/L (3.5-5.1); SODIUM 136 MMOL/L (136-145); TOTAL PROTEIN 5.2 G/DL (6.4-8.2)
[2017-05-24] MEDS ORDERED: cefTRIAXone 1 GM in NS 55 ML IVPB ONE (12:30)
[2017-05-24 12:36] LABS: ALCOHOL < 3 mg/dL
[2017-05-24 13:00] LABS: AMMONIA 29 umol/L (11.2-31.7)
[2017-05-24 13:20] LABS: BAND NEUTROPHILS % (MANUAL) 0 % (0-8); BASOPHILS % (MANUAL) 0 % (0-2); EOSINOPHILS % (MANUAL) 0 % (0-3); LYMPHOCYTES % (MANUAL) 3 % (20-45); NEUTROPHILS % (MANUAL) 96 % (45-75); PLATELET ESTIMATE ADEQUATE; PLATELET MORPHOLOGY NORMAL; TOTAL CELLS COUNTED 100
[2017-05-24 13:21] LABS: MACROCYTES 1+; SCHISTOCYTES 1+
[2017-05-24] MEDS ORDERED: LACTULOSE20 GM/301 ORAL (14:08)
[2017-05-24] MEDS ORDERED: Piperacillin/Tazobactam 3.375 GM in NS 110 ML IVPB SCH (15:00)
[2017-05-24] MEDS ORDERED: PRO-AMATINE10 MG ORAL (15:04)
[2017-05-24] MEDS ORDERED: OCTREOTIDE100 MCG/2 IJ (15:05)
--- NOTE | 2017-05-24 15:11 | Infectious Diseases Prog Note ---
Assessment/Plan Problems: (1) HCAP (healthcare-associated pneumonia) Assessment & Plan: with extensive B/L infiltrates will start zosyn and vancomycin renally dosed , with close monitoring of his creatinine level, send sputum culture (2) Sepsis Assessment & Plan: with significant leukocytosis , will start vancomycin and zosyn , and send blood culture (3) Ascites due to alcoholic cirrhosis Assessment & Plan: with anasarca, needs diuresis, and daily weight monitor (4) Liver cirrhosis, alcoholic Assessment & Plan: continue supportive care, recommend GI consult (5) QAMAR (acute kidney injury) Assessment & Plan: suspect hepatorenal, monitor urine output, and avoid nephrotoxic medicine (6) Acute respiratory failure Assessment & Plan: due to the above , continue BIPAP, monitor ABG, and CXR, pulmonary is following Subjective Allergies: Coded Allergies: No Known Allergies (Unverified , 04/29/17) Objective Vital Signs Last 24 Hour Vital Signs Date Time Temp Pulse Resp B/P (MAP) Pulse Ox O2 Delivery O2 Flow Rate FiO2 05/24/17 12:56 40 05/24/17 12:30 110 22 95 Facial 40 05/24/17 11:30 98.1 105 12 152/75 86 Room Air 05/24/17 11:23 98.1 119 12 152/75 86 Room Air Height (Feet): 6 Weight (Pounds): 185 Laboratory Tests Test 05/24/17 11:40 05/24/17 12:35 White Blood Count 26.7 K/UL (4.8-10.8) *H Red Blood Count 2.79 M/UL (4.70-6.10) L Hemoglobin 10.1 G/DL (14.2-18.0) L Hematocrit 32.3 % (42.0-52.0) L Mean Corpuscular Volume 116 FL (80-99) H Mean Corpuscular Hemoglobin 36.4 PG (27.0-31.0) H Mean Corpuscular Hemoglobin Concent 31.3 G/DL (32.0-36.0) L Red Cell Distribution Width 15.9 % (11.6-14.8) H Platelet Count 186 K/UL (150-450) Mean Platelet Volume 6.8 FL (6.5-10.1) Neutrophils (%) (Auto) % (45.0-75.0) Lymphocytes (%) (Auto) % (20.0-45.0) Monocytes (%) (Auto) % (1.0-10.0) Eosinophils (%) (Auto) % (0.0-3.0) Basophils (%) (Auto) % (0.0-2.0) Differential Total Cells Counted 100 Neutrophils % (Manual) 96 % (45-75) H Lymphocytes % (Manual) 3 % (20-45) L Monocytes % (Manual) 1 % (1-10) Eosinophils % (Manual) 0 % (0-3) Basophils % (Manual) 0 % (0-2) Band Neutrophils 0 % (0-8) Platelet Estimate Adequate Platelet Morphology Normal Macrocytosis 1+ Schistocytes 1+ Prothrombin Time 16.4 SEC (9.30-11.50) H Prothromb Time International Ratio 1.6 (0.9-1.1) H Activated Partial Thromboplast Time 31 SEC (23-33) Sodium Level 136 MMOL/L (136-145) Potassium Level 5.3 MMOL/L (3.5-5.1) H Chloride Level 104 MMOL/L (98-107) Carbon Dioxide Level 24 MMOL/L (21-32) Anion Gap 8 mmol/L (5-15) Blood Urea Nitrogen 52 mg/dL (7-18) H Creatinine 1.6 MG/DL (0.55-1.30) H Estimat Glomerular Filtration Rate 48.1 mL/min (>60) Glucose Level 141 MG/DL (74-106) H Calcium Level 8.4 MG/DL (8.5-10.1) L Total Bilirubin 16.3 MG/DL (0.2-1.0) H Direct Bilirubin 14.0 MG/DL (0.0-0.3) H Aspartate Amino Transf (AST/SGOT) 139 U/L (15-37) H Alanine Aminotransferase (ALT/SGPT) 94 U/L (12-78) H Alkaline Phosphatase 564 U/L (46-116) H Ammonia 29 umol/L (11.2-31.7) Total Protein 5.2 G/DL (6.4-8.2) L Albumin 1.6 G/DL (3.4-5.0) L Globulin 3.6 g/dL Albumin/Globulin Ratio 0.4 (1.0-2.7) L Serum Alcohol < 3 mg/dL Lactic Acid Level 1.70 mmol/L (0.66-2.22) Janae Lopez M.D. May 24, 2017 15:11
--- NOTE | 2017-05-24 15:55 | Emergency Room Report ---
History of Present Illness General Chief Complaint: Generalized Weakness Source: Patient, EMS Present Illness HPI This 42-year-old male brought in by EMS after increased generalized weakness. Patient prior history of liver disease secondary alcohol abuse. Patient had recently been treated in the hospital and started on multiple medications. Patient reports being compliant. He was noted to have increased difficulty breathing. The patient had been having any hematemesis or bloody stools. He had been noted to have difficulty getting onto the paramedics gurney. He denied productive cough, He denied having any recent alcohol use. Allergies: Coded Allergies: No Known Allergies (Unverified , 04/29/17) Patient History Reviewed Nursing Documentation: PMH: Agreed, PSxH: Agreed Nursing Documentation-PMH Hx Cancer: No Hx Gastrointestinal Problems: Yes - LIVER CIRRHOSIS,LIVER FAILURE Hx Neurological Problems: No Review of Systems All Other Systems: negative except mentioned in HPI Physical Exam Vital Signs Date Time Temp Pulse Resp B/P (MAP) Pulse Ox O2 Delivery O2 Flow Rate FiO2 05/24/17 11:23 98.1 119 12 152/75 86 Room Air 05/24/17 12:30 40 General Appearance: alert, GCS 15, moderate distress, severe distress Eyes: bilateral eye Scleral Injection Neck: full range of motion Respiratory: lungs clear, normal breath sounds Cardiovascular #1: normal peripheral pulses, regular rate, rhythm Gastrointestinal: distended Musculoskeletal: normal inspection, back normal, digits/nails normal Neurologic: normal inspection, alert, 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 Differential diagnosis included was not limited to anemia, sepsis, urinary tract infection, electrolyte abnormality, hypothyroidism, myocardial infarction, myasthenia gravis, dehydration, among others. Because of complexity of patient's case laboratory testing and imaging studies were ordered.The patient started on IV fluids. He was empirically given IV antibiotics for possible pneumonia. Chest x-ray one view interpreted by me showed bilateral pericardial infiltrates with low lung volumes increased from previous. Patient started on BiPAP. Dr. Sunday Choi was contacted for inpatient management. Labs Test 05/24/17 11:40 05/24/17 12:35 White Blood Count 26.7 K/UL (4.8-10.8) Red Blood Count 2.79 M/UL (4.70-6.10) Hemoglobin 10.1 G/DL (14.2-18.0) Hematocrit 32.3 % (42.0-52.0) Mean Corpuscular Volume 116 FL (80-99) Mean Corpuscular Hemoglobin 36.4 PG (27.0-31.0) Mean Corpuscular Hemoglobin Concent 31.3 G/DL (32.0-36.0) Red Cell Distribution Width 15.9 % (11.6-14.8) Platelet Count 186 K/UL (150-450) Mean Platelet Volume 6.8 FL (6.5-10.1) Neutrophils (%) (Auto) % (45.0-75.0) Lymphocytes (%) (Auto) % (20.0-45.0) Monocytes (%) (Auto) % (1.0-10.0) Eosinophils (%) (Auto) % (0.0-3.0) Basophils (%) (Auto) % (0.0-2.0) Differential Total Cells Counted 100 Neutrophils % (Manual) 96 % (45-75) Lymphocytes % (Manual) 3 % (20-45) Monocytes % (Manual) 1 % (1-10) Eosinophils % (Manual) 0 % (0-3) Basophils % (Manual) 0 % (0-2) Band Neutrophils 0 % (0-8) Platelet Estimate Adequate Platelet Morphology Normal Macrocytosis 1+ Schistocytes 1+ Prothrombin Time 16.4 SEC (9.30-11.50) Prothromb Time International Ratio 1.6 (0.9-1.1) Activated Partial Thromboplast Time 31 SEC (23-33) Sodium Level 136 MMOL/L (136-145) Potassium Level 5.3 MMOL/L (3.5-5.1) Chloride Level 104 MMOL/L (98-107) Carbon Dioxide Level 24 MMOL/L (21-32) Anion Gap 8 mmol/L (5-15) Blood Urea Nitrogen 52 mg/dL (7-18) Creatinine 1.6 MG/DL (0.55-1.30) Estimat Glomerular Filtration Rate 48.1 mL/min (>60) Glucose Level 141 MG/DL (74-106) Calcium Level 8.4 MG/DL (8.5-10.1) Total Bilirubin 16.3 MG/DL (0.2-1.0) Direct Bilirubin 14.0 MG/DL (0.0-0.3) Aspartate Amino Transf (AST/SGOT) 139 U/L (15-37) Alanine Aminotransferase (ALT/SGPT) 94 U/L (12-78) Alkaline Phosphatase 564 U/L (46-116) Ammonia 29 umol/L (11.2-31.7) Total Protein 5.2 G/DL (6.4-8.2) Albumin 1.6 G/DL (3.4-5.0) Globulin 3.6 g/dL Albumin/Globulin Ratio 0.4 (1.0-2.7) Serum Alcohol < 3 mg/dL Lactic Acid Level 1.70 mmol/L (0.66-2.22) Last Vital Signs Date Time Temp Pulse Resp B/P (MAP) Pulse Ox O2 Delivery O2 Flow Rate FiO2 05/24/17 15:42 100 26 95 Facial 40 05/24/17 11:30 98.1 152/75 Status: unchanged Disposition: ADMITTED INPATIENT Condition: Serious Referrals: NON PHYSICIAN (PCP) Terry Pearce May 24, 2017 15:55
--- NOTE | 2017-05-24 16:30 | Consultation ---
DATE OF CONSULTATION: INFECTIOUS DISEASE CONSULTATION REQUESTING PHYSICIAN: Sunday Choi M.D. REASON FOR CONSULTATION: Pneumonia and sepsis. Recommendation for antibiotics therapy. HISTORY OF PRESENT ILLNESS: The patient is a 42-year-old male with alcohol abuse who has barker heavy drinker, was admitted recently 04/30/2017 with shortness of breath, severe abdominal distention with ascites and significant jaundice due to advanced liver failure from alcohol abuse. The patient was found to have pneumonia, was treated for pneumonia and discharged home on 05/14/2017. Today, he was brought back by his mother for progressive shortness of breath and dry cough with increased jaundice all over his skin. The patient denied any fever or chills. Denied any recent travel or sick contact, but he was unable to sleep at night or lay flat due to his shortness of breath. He has been taking all his medication that he prescribed when he left the hospital last time. The patient noticed significant jaundice all over his skin with itching. His abdomen was getting more swollen. So, he was brought in to the hospital for evaluation and management. His chest x-ray in the emergency room showed extensive bilateral pulmonary infiltrates. His white count was around 26,000. So, I was consulted by the primary provider for antibiotics treatment and further management of his pneumonia and sepsis. As of note, the patient is on BiPAP machine, cannot provide good history. History was mainly obtained from his mother who was at the bedside. PAST MEDICAL HISTORY: Significant for alcoholic liver disease, alcohol abuse, hepatic encephalopathy, coagulopathy and ascites. PAST SURGICAL HISTORY: Negative. MEDICATIONS: The patient received IV ceftriaxone in the emergency room. For the rest of his medications, please refer to [facility]. ALLERGIES: No known drug allergy. SOCIAL HISTORY: The patient is lives with his mother at home. Denied using any drugs, tobacco, or alcohol. FAMILY HISTORY: Noncontributory. REVIEW OF SYSTEMS: A 14-point of systems reviewed, all were negative apart from the one I mentioned above in my History and Physical. PHYSICAL EXAMINATION: GENERAL: A middle-aged male, obese, jaundiced with anasarca, lying in bed, on BiPAP machine, not in acute distress. VITAL SIGNS: Temperature 98.1 degrees, pulse 105, respirations 12, blood pressure 152/75 and saturation 86% on room air. HEENT: Normocephalic and atraumatic. Jaundiced sclera. Pupil reactive to lights. Moist oral mucosa. No exudate. NECK: Supple. No lymphadenopathy. CARDIOVASCULAR: He is tachycardic. S1 and S2 normal. No murmur. LUNGS: He has crackles diffuse all over his lung conde with diminished breathing sounds at the bases. ABDOMEN: Obese, soft, distended with hepatomegaly and jaundiced skin. No rebound tenderness. EXTREMITY: Trace edema. No cyanosis with jaundiced skin. LABORATORY AND DIAGNOSTIC DATA: Labs showed white count of 26,700, hemoglobin of 10.1 and platelet count of 186. BUN of 52 and creatinine of 1.6. AST of 139 and ALT of 94. Imaging, chest x-ray showed significant pulmonary infiltration on both side with pleural effusion. ASSESSMENT AND RECOMMENDATION: 1. Healthcare-acquired pneumonia with extensive bilateral infiltrates. We will start Zosyn and vancomycin renally dosed with close monitor of his creatinine level and send sputum culture and monitor his chest x-ray. 2. Sepsis with significant leukocytosis. We will start vancomycin and Zosyn and send blood culture. We will deescalate his antibiotics based on the culture results. 3. Ascites due to alcoholic cirrhosis with anasarca and fluid overload. Need diuresis and daily weight monitor. 4. Liver cirrhosis, alcoholic. Continue supportive care. Recommend Gastrointestinal consult. May benefit from transplant in the future. 5. Acute renal failure, suspect hepatorenal. Monitor urine output. Avoid nephrotoxic medicine. Thank you for the consult. Janae Lopez M.D. DR: ALEX JOB#: [id number] CC:
[2017-05-24] MEDS: Vancomycin 1250mg/D5W 250ml IVPB SCH (17:02)
[2017-05-24] MEDS ORDERED: Zosyn 3.375gm/50ml Premix 50 ML IVPB SCH (18:00)
[2017-05-24 18:07] LABS: ABG ALLEN TEST POSITIVE; ABG PCO2 32.6 mmHg (35.0-45.0)
--- NOTE | 2017-05-24 21:02 | Consultation ---
Consult Note Assessment/Plan 1. Respiratory failure. 2. Liver failure. 3. Cirrhosis with ascites. 4. Alcoholism. 5. Pulmonary infiltrates and effusions, probably due to ascites 6. UTI 7. peripheral edema #[id number] KELSEY CABAN DO May 24, 2017 21:02
--- NOTE | 2017-05-24 21:22 | Consultation ---
Consult Note Consult Note ASKED TO EVAL FOR RENAL FAILURE Patient known to me from his previous admission This 42-year-old male brought in by EMS after increased generalized weakness. Patient prior history of liver disease secondary alcohol abuse. Patient had recently been treated in the hospital and started on multiple medications. Patient reports being compliant. He was noted to have increased difficulty breathing. The patient had been having any hematemesis or bloody stools. He had been noted to have difficulty getting onto the paramedics gurney. He denied productive cough, He denied having any recent alcohol use. 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 MIKAELA AYOUB May 24, 2017 21:22
[2017-05-24] MEDS ORDERED: Metoclopramide 10mg/2ml Inj IVP PRN (21:30)
[2017-05-24] MEDS: D5NS 1,000 ML IV SCH (21:34)
[2017-05-24] MEDS ORDERED: Albuterol 90mcg Inhaler 8gm INH PRN (21:45)
[2017-05-24] MEDS ORDERED: Econazole 1% Cream 15gm TOPIC PRN (21:45)
[2017-05-24] MEDS ORDERED: Sodium Polystyrene Sulfonate 15gm Powder ORAL ONE (22:00)
[2017-05-25] VITALS: BP 130/88
--- NOTE | 2017-05-25 00:32 | Consultation ---
DATE OF CONSULTATION: 05/24/2017 PULMONARY CRITICAL CARE CONSULT REASON FOR CONSULTATION: Respiratory distress, decompensated liver failure. HISTORY OF PRESENT ILLNESS: A 42-year-old gentleman well known to myself and Dr. Wasserman, who was recently in a prolonged hospitalization for liver failure, cirrhosis with ascites, pulmonary infiltrates and effusions, urinary tract infection, and peripheral edema, who is encephalopathic upon his admission and subsequently did improve and was discharged. He has now returned stating that he was consuming alcohol after discharge with recurrent severe jaundice, altered mental status, confusion, edema, or shortness of breath. He is unable to provide a detailed history due to his level of confusion per the emergency room record. He has had no cough, fevers, or chills and he previously did deny any alcohol use. The patient in the emergency room was started on BiPAP initially, but has been transitioned to a non-rebreather face mask. PAST MEDICAL HISTORY: Previously stated liver cirrhosis, decompensated liver failure, gastrointestinal bleed, and thrombocytopenia. PAST SURGICAL HISTORY: Negative. MEDICATIONS: Prehospital medications reviewed, reconciled, and documented in the electric medical record. ALLERGIES: He has no known drug allergies. SOCIAL HISTORY: Positive for alcohol and tobacco. No drugs. FAMILY HISTORY: Unavailable. REVIEW OF SYSTEMS: Unreliable. PHYSICAL EXAMINATION: GENERAL: At the time of my exam, he is alert and oriented to person, mildly confused, but no current respiratory distress. He is afebrile with a pulse of 104, blood pressure 123/75, and respirations 20. He is on 15 liters non-rebreather, saturating 100%. HEENT: He is normocephalic and atraumatic. Oropharynx is moist. He is icteric and jaundiced. His eyes are icteric. Pupils are reactive. SKIN: Jaundiced. LUNGS: Have bilateral crackles. No wheezes present. Decreased at the bases. HEART: Regular rhythm without murmur. Tachycardic. ABDOMEN: Distended. Soft with fluid. EXTREMITIES: Positive edema. Does move all extremities. LABORATORY DATA: White count 26.7, hemoglobin 10.1, and platelets are 186. Sodium is 136, potassium 5.3, chloride 104, bicarb 24, BUN 52, creatinine 1.6, and glucose of 141. Total bilirubin is 16.3, AST 139, ALT is 94, and alkaline phosphatase 564. No urinalysis was obtained. His ABG is 7.39, 32, and 98. Serum alcohol level was negative. IMAGING STUDIES: Unclear if any imaging studies have been performed as there are no reports available. There is apparently a chest x-ray verbal report to the emergency room physicians, which shows bilateral pericardial infiltrates with low lung volumes. ASSESSMENT: Respiratory distress requiring BiPAP, volume overload, decompensated liver failure, recurrent alcohol use, cirrhosis, ascites, and altered mental status. PLAN: For the patient, supportive measures at this time. NPO, IV fluids, as needed BiPAP for respiratory distress, as needed ABG if altered mental status increases, DVT prophylaxis, and nebulizer treatments. O2 maintain to sats greater than 92%. Dose medicines for underlying liver function. Wound Care and we will continue follow the patient remainder of the hospital stay. Greater than 35 minutes critical care time was spent reviewing medical records discussing care plan with the nursing staff and discussing options and current medical condition with the patient and documentation . The patient at moderate risk for decompensation and worsening medical conditions. Sarah Dorsey D.O. DR: TORIE JOB#: [id number] CC:
[2017-05-25 04:00] VITALS: BP 121/72
[2017-05-25] MEDS: Zosyn 3.375gm/50ml Premix 50 ML IVPB SCH ×3 (04:00→20:31)
[2017-05-25] MEDS: Vancomycin 1250mg/D5W 250ml IVPB SCH ×2 (05:00→17:01)
--- NOTE | 2017-05-25 07:28 | Pulmonology Progress Note ---
Assessment/Plan Assessment/Plan ASSESSMENT: Respiratory distress requiring BiPAP volume overload, decompensated liver failure, recurrent alcohol use cirrhosis ascites altered mental status. PLAN: NPO, IV fluids, as needed BiPAP for respiratory distress as needed ABG if altered mental nebulizer treatments O2 maintain to sats greater than 92%. Dose medicines for underlying liver function prn abg aspiration precuations Subjective ROS Limited/Unobtainable: Yes Allergies: Coded Allergies: No Known Allergies (Unverified , 04/29/17) Subjective remains confused, denies etoh use toady not getting oob on o2 no active bleeding Objective Last 24 Hour Vital Signs Date Time Temp Pulse Resp B/P (MAP) Pulse Ox O2 Delivery O2 Flow Rate FiO2 05/25/17 04:00 100 05/25/17 04:00 97.6 106 20 121/72 96 Non-Rebreather 15.0 100 05/25/17 00:03 92 05/25/17 00:00 98.2 106 22 130/88 98 Non-Rebreather 100 05/24/17 22:06 Non-Rebreather 15.0 100 05/24/17 20:04 92 05/24/17 20:00 98.0 112 24 122/88 94 Non-Rebreather 100 05/24/17 19:54 104 20 Non-Rebreather 15.0 100 05/24/17 18:54 107 05/24/17 18:50 117 26 123/75 93 Non-Rebreather 100 05/24/17 18:35 98.0 109 22 137/125 94 Non-Rebreather 15.0 100 05/24/17 17:52 101 22 Non-Rebreather 15.0 100 05/24/17 17:17 98.0 109 24 137/125 94 Bi-pap 40 05/24/17 16:20 Full Face 05/24/17 15:51 98.0 104 22 108/63 93 Bi-pap 40 05/24/17 15:42 100 26 95 Facial 40 05/24/17 13:00 98.1 110 24 124/73 92 Bi-pap 40 05/24/17 12:56 40 05/24/17 12:30 110 22 95 Facial 40 05/24/17 12:00 98.1 108 16 142/73 100 Non-Rebreather 15.0 05/24/17 11:45 98.1 111 16 128/68 88 Nasal Cannula 4.0 05/24/17 11:30 98.1 105 12 152/75 86 Room Air 05/24/17 11:23 98.1 119 12 152/75 86 Room Air General Appearance: WD/WN HEENT: other - icteric Respiratory/Chest: crackles/rales Cardiovascular: normal rate, regular rhythm Abdomen: distended, tender Skin: other - edema nd jaudice Neurologic/Psychiatric: disoriented Laboratory Tests 05/24/17 11:40: White Blood Count 26.7*H, Red Blood Count 2.79L, Hemoglobin 10.1L, Hematocrit 32.3L, Mean Corpuscular Volume 116H, Mean Corpuscular Hemoglobin 36.4H, Mean Corpuscular Hemoglobin Concent 31.3L, Red Cell Distribution Width 15.9H, Platelet Count 186, Mean Platelet Volume 6.8, Neutrophils (%) (Auto) , Lymphocytes (%) (Auto) , Monocytes (%) (Auto) , Eosinophils (%) (Auto) , Basophils (%) (Auto) , Differential Total Cells Counted 100, Neutrophils % ( Manual) 96H, Lymphocytes % (Manual) 3L, Monocytes % (Manual) 1, Eosinophils % ( Manual) 0, Basophils % (Manual) 0, Band Neutrophils 0, Platelet Estimate Adequate, Platelet Morphology Normal, Macrocytosis 1+, Schistocytes 1+, Prothrombin Time 16.4H, Prothromb Time International Ratio 1.6H, Activated Partial Thromboplast Time 31, Sodium Level 136, Potassium Level 5.3H, Chloride Level 104, Carbon Dioxide Level 24, Anion Gap 8, Blood Urea Nitrogen 52H, Creatinine 1.6H, Estimat Glomerular Filtration Rate 48.1, Glucose Level 141H, Calcium Level 8.4L, Total Bilirubin 16.3H, Direct Bilirubin 14.0H, Aspartate Amino Transf (AST/SGOT) 139H, Alanine Aminotransferase (ALT/SGPT) 94H, Alkaline Phosphatase 564H, Ammonia 29, Total Protein 5.2L, Albumin 1.6L, Globulin 3.6, Albumin/Globulin Ratio 0.4L, Serum Alcohol < 3 05/24/17 12:35: Lactic Acid Level 1.70 05/24/17 18:00: Arterial Blood pH 7.439, Arterial Blood Partial Pressure CO2 32.6L, Arterial Blood Partial Pressure O2 98.2, Arterial Blood HCO3 21.6L, Arterial Blood Oxygen Saturation 97.2, Arterial Blood Base Excess -2.0, Harvey Test Positive Current Medications Medications (Trade) Dose Ordered Sig/Leonard Route PRN Reason Start Time Stop Time Status Last Admin Dose Admin Albuterol Sulfate (Proventil MDI) 2 puff BIDPRN PRN INH Shortness of Breath 05/24/17 21:45 06/23/17 21:44 Dextrose/Sodium Chloride 1,000 ml @ 50 mls/hr Q20H IV 05/24/17 22:00 06/23/17 21:59 05/24/17 21:34 Econazole Nitrate (Spectazole) 1 applic ONCE A WEEK PRN TOPIC eczema 05/24/17 21:45 06/23/17 21:44 UNV Lactulose (Cephulac) 20 gm DAILY ORAL 05/25/17 09:00 06/24/17 08:59 Metoclopramide HCl (Reglan) 10 mg Q6H PRN IVP Nausea & Vomiting 05/24/17 21:30 06/23/17 21:29 Midodrine (Pro-Amatine) 10 mg THREE TIMES A DAY ORAL 05/25/17 09:00 06/24/17 08:59 Pantoprazole (Protonix) 40 mg DAILY IVP 05/25/17 09:00 06/24/17 08:59 Piperacillin/ Tazobactam/ Dextrose 50 ml @ 12.5 mls/hr Q8HR@0400,1200,2000 IVPB 05/25/17 04:00 06/01/17 03:59 05/25/17 04:00 Tamsulosin HCl (Flomax) 0.4 mg BEDTIME ORAL 05/25/17 22:00 06/24/17 21:59 Thiamine HCl (Vitamin B1) 100 mg DAILY ORAL 05/25/17 09:00 06/24/17 08:59 Vancomycin HCl (Vanco rx to dose) 1 ea DAILYPRN PRN MISC Per rx protocol 05/24/17 15:00 06/23/17 14:59 Vancomycin HCl/ Dextrose 250 ml @ 166.667 mls/hr Q12HR@0500,1700 IVPB 05/24/17 17:00 05/29/17 16:59 05/25/17 05:00 Vitamin D (Vitamin D) 1,000 intlu DAILY ORAL 05/25/17 09:00 06/24/17 08:59 KELSEY CABAN DO May 25, 2017 07:28
[2017-05-25 08:00] VITALS: BP 122/72
[2017-05-25] MEDS ORDERED: Pantoprazole Inj IVP SCH (09:00)
[2017-05-25] MEDS: Lactulose 20gm/30ml UDC ORAL SCH (09:08)
[2017-05-25] MEDS: Vitamin D 1000 IU Tab ORAL SCH (09:08)
[2017-05-25] MEDS: Midodrine 10mg tab ORAL SCH ×3 (09:08→18:27)
[2017-05-25] MEDS: Thiamine 100mg tab ORAL SCH (09:08)
[2017-05-25] MEDS ORDERED: NS 275ml ONE (09:11)
[2017-05-25] MEDS ORDERED: Tubing IV Secondary IV ONE (09:11)
[2017-05-25 10:06] LABS: MEAN CORPUSCULAR HEMOGLOBIN 37.6 PG (27.0-31.0); MEAN CORPUSCULAR VOLUME 114 FL (80-99); MEAN PLATELET VOLUME 6.4 FL (6.5-10.1); PLATELET COUNT 119 K/UL (150-450); RED BLOOD COUNT 2.45 M/UL (4.70-6.10); RED CELL DISTRIBUTION WIDTH 15.6 % (11.6-14.8); WHITE BLOOD COUNT 20.9 K/UL (4.8-10.8)
[2017-05-25 10:17] LABS: INR 1.6 (0.9-1.1); PROTHROMBIN TIME 16.3 SEC (9.30-11.50)
--- NOTE | 2017-05-25 10:35 | Diagnostic Imaging Report ---
Indication: SOB Technique: XRAY CHEST 1 V Comparison:05/13/17 Findings: The cardiomediastinal silhouette is unchanged. Extensive bilateral airspace disease is now noted with air bronchograms. Linear densities are also noted extending from the hilum peripherally on the right. No definite pleural fluid. The apparent hemidiaphragms are elevated. Impression: Findings consistent with either pulmonary edema or pneumonia. Atelectasis the right midlung. Normal heart size.
[2017-05-25 10:38] LABS: ANISOCYTOSIS 1+; BAND NEUTROPHILS % (MANUAL) 14 % (0-8); BASOPHILS % (MANUAL) 0 % (0-2); EOSINOPHILS % (MANUAL) 0 % (0-3); HYPOCHROMASIA 1+; LYMPHOCYTES % (MANUAL) 2 % (20-45); MACROCYTES 1+; NEUTROPHILS % (MANUAL) 79 % (45-75); PLATELET ESTIMATE DECREASED; PLATELET MORPHOLOGY NORMAL; TOTAL CELLS COUNTED 100
[2017-05-25 10:40] LABS: HEMOGLOBIN A1C 4.4 % (4.3-6.0)
[2017-05-25 11:33] LABS: ALANINE AMINOTRANSFERASE 77 U/L (12-78); ALBUMIN/GLOBULIN RATIO 0.4 (1.0-2.7); ANION GAP 11 mmol/L (5-15); ASPARTATE AMINO TRANSFERASE 122 U/L (15-37); CALCIUM 7.8 MG/DL (8.5-10.1); CARBON DIOXIDE 21 MMOL/L (21-32); CHLORIDE 106 MMOL/L (98-107); CREATININE 1.7 MG/DL (0.55-1.30); GLOMERULAR FILTRATION RATE 44.9 mL/min (>60); SODIUM 138 MMOL/L (136-145); TOTAL PROTEIN 4.7 G/DL (6.4-8.2)
[2017-05-25 11:43] LABS: CHOLESTEROL 114 MG/DL (< 200); CHOLESTEROL/HDL RATIO 8.1 (3.3-4.4); CRP QUANT 6.2 mg/dL (0.00-0.90); FERRITIN 792 NG/ML (8-388); LIPASE 495 U/L (73-393); MAGNESIUM 1.9 MG/DL (1.8-2.4); THYROID STIMULATING HORMONE 3.032 uiU/mL (0.360-3.740)
[2017-05-25 11:46] LABS: BILIRUBIN,DIRECT 12.3 MG/DL (0.0-0.3)
--- NOTE | 2017-05-25 11:47 | Wound Care Consultation ---
Wound Assessment Wound Assessment #1: Wound Number: 1 Wound Present on Admission: Yes New Wound: No Status Change of Wound: No Wound Location Body Site Modif: mid Wound Location Body Site: other - sacrococcygeal Wound Type: pressure ulcer Elver Test: Does not Lever Pressure Ulcer Stage: Deep Tissue Injury Wound Thickness: Full Thickness Wound Length: 5.0 Wound Width: 3.0 Wound Depth: utd Percent of Wound Purple/Maroon: 100 Wound Drainage Amount: None Wound Drainage Odor: None/Absent Tissue Surrounding Wound: Erythemic Wound General Appearance: Reddened - purple Wound Assessment #2: Wound Number: 2 Wound Present on Admission: Yes New Wound: No Status Change of Wound: No Wound Location Body Site: perineal area Wound Type: rash Elver Test: Does not Elver Rashes: Hellen/Yeast Percent of Wound [place]/Red: 100 Wound Drainage Amount: None Wound Drainage Odor: None/Absent Tissue Surrounding Wound: Erythemic Wound General Appearance: Reddened Wound Comment #1 Sacrococcygeal DTI pressure ulcer #2 hellen rashes on perineal area Recommendation -Local wound care per protocol -Keep clean and dry -Turn and reposition -Low air loss SPR mattress -Offload both heels -Heel protector on both heels -Optimize nutrition -Assess and f/u accordingly for any changes TRISH BAXTER RN May 25, 2017 11:47
[2017-05-25 12:00] VITALS: BP 137/65
[2017-05-25 16:00] VITALS: BP 136/63
--- NOTE | 2017-05-25 17:47 | General Progress Note ---
Assessment/Plan Assessment/Plan Assessment - Alcoholic liver disease - liver failure - MELD score 27 - leukocytosis - r/o SBP - Edema - poor prognosis Recommendation - lactulose - check NH3 again in am - abx - ultrasound guided paracentesis Subjective Allergies: Coded Allergies: No Known Allergies (Unverified , 04/29/17) Objective Last 24 Hour Vital Signs Date Time Temp Pulse Resp B/P (MAP) Pulse Ox O2 Delivery O2 Flow Rate FiO2 05/25/17 16:00 97.9 105 19 136/63 94 Venturi Mask 55 05/25/17 15:30 92 Venturi Mask 14.0 55 05/25/17 12:00 101 05/25/17 12:00 98.1 105 19 137/65 98 Non-Rebreather 15.0 05/25/17 08:00 98.8 103 18 122/72 97 Non-Rebreather 05/25/17 08:00 100 05/25/17 07:32 Non-Rebreather 15.0 100 05/25/17 07:32 95 Non-Rebreather 15.0 100 05/25/17 07:30 109 20 Non-Rebreather 15.0 100 05/25/17 04:00 100 05/25/17 04:00 97.6 106 20 121/72 96 Non-Rebreather 15.0 100 05/25/17 00:03 92 05/25/17 00:00 98.2 106 22 130/88 98 Non-Rebreather 100 05/24/17 22:06 Non-Rebreather 15.0 100 05/24/17 20:04 92 05/24/17 20:00 98.0 112 24 122/88 94 Non-Rebreather 100 05/24/17 19:54 104 20 Non-Rebreather 15.0 100 05/24/17 18:54 107 05/24/17 18:50 117 26 123/75 93 Non-Rebreather 100 05/24/17 18:35 98.0 109 22 137/125 94 Non-Rebreather 15.0 100 05/24/17 17:52 101 22 Non-Rebreather 15.0 100 Intake and Output 05/25/17 05/26/17 19:00 07:00 Intake Total 562.5 ml Balance 562.5 ml Intake IV Total 562.5 ml # Bowel Movements 1 Laboratory Tests 05/24/17 18:00: Arterial Blood pH 7.439, Arterial Blood Partial Pressure CO2 32.6L, Arterial Blood Partial Pressure O2 98.2, Arterial Blood HCO3 21.6L, Arterial Blood Oxygen Saturation 97.2, Arterial Blood Base Excess -2.0, Harvey Test Positive 05/25/17 09:30: White Blood Count 20.9H, Red Blood Count 2.45L, Hemoglobin 9.2L, Hematocrit 27.8L, Mean Corpuscular Volume 114H, Mean Corpuscular Hemoglobin 37.6H, Mean Corpuscular Hemoglobin Concent 33.0, Red Cell Distribution Width 15.6H, Platelet Count 119L, Mean Platelet Volume 6.4L, Neutrophils (%) (Auto) , Lymphocytes (%) (Auto) , Monocytes (%) (Auto) , Eosinophils (%) (Auto) , Basophils (%) (Auto) , Differential Total Cells Counted 100, Neutrophils % ( Manual) 79H, Lymphocytes % (Manual) 2L, Monocytes % (Manual) 5, Eosinophils % ( Manual) 0, Basophils % (Manual) 0, Band Neutrophils 14H, Platelet Estimate DecreasedL, Platelet Morphology Normal, Hypochromasia 1+, Anisocytosis 1+, Macrocytosis 1+, Prothrombin Time 16.3H, Prothromb Time International Ratio 1.6H , Sodium Level 138, Potassium Level 4.0, Chloride Level 106, Carbon Dioxide Level 21, Anion Gap 11, Blood Urea Nitrogen 55H, Creatinine 1.7H, Estimat Glomerular Filtration Rate 44.9, Glucose Level 109H, Hemoglobin A1c 4.4, Uric Acid 6.0, Calcium Level 7.8L, Phosphorus Level 4.0, Magnesium Level 1.9, Ferritin 792H, Total Bilirubin 14.5H, Direct Bilirubin 12.3H, Gamma Glutamyl Transpeptidase 517H, Aspartate Amino Transf (AST/SGOT) 122H, Alanine Aminotransferase (ALT/SGPT) 77, Alkaline Phosphatase 519H, Total Creatine Kinase 20L, C-Reactive Protein, Quantitative 6.2H, Pro-B-Type Natriuretic Peptide 1861H, Total Protein 4.7L, Albumin 1.4L, Globulin 3.3, Albumin/Globulin Ratio 0.4L, Triglycerides Level 147, Cholesterol Level 114, LDL Cholesterol 97, HDL Cholesterol 14L, Cholesterol/HDL Ratio 8.1H, Lipase 495H, Vitamin B12 Level > 2000H, Folate 11.0, Thyroid Stimulating Hormone (TSH) 3.032 05/25/17 16:35: Iron Level [Pending], Unsaturated Iron Binding [Pending], Prostate Specific Antigen [Pending], Free Prostate Specific Antigen [Pending], Percent Free Prostate Specific Ag [Pending], Prostate Specific Antigen Total [Pending] Height (Feet): 6 Height (Inches): 0.00 Weight (Pounds): 222 DEEPA GARCIA May 25, 2017 17:47
[2017-05-25 18:05] LABS: IRON 17 ug/dL (50-175); TOTAL IRON BINDING CAPACITY 54 ug/dL (250-450)
[2017-05-25 18:11] LABS: PSA TOTAL 0.2 ng/mL (0.0-4.0)
[2017-05-25] MEDS: D5NS 1,000 ML IV SCH (18:23)
[2017-05-25] MEDS ORDERED: Phytonadione 10 mg/mL 1ml amp SUBQ ONE (18:30)
[2017-05-25 18:32] LABS: ALANINE AMINOTRANSFERASE 75 U/L (12-78); ALBUMIN/GLOBULIN RATIO 0.5 (1.0-2.7); ANION GAP 10 mmol/L (5-15); ASPARTATE AMINO TRANSFERASE 120 U/L (15-37); CALCIUM 7.6 MG/DL (8.5-10.1); CARBON DIOXIDE 23 MMOL/L (21-32); CHLORIDE 107 MMOL/L (98-107); CREATININE 1.8 MG/DL (0.55-1.30); POTASSIUM 3.6 MMOL/L (3.5-5.1); SODIUM 140 MMOL/L (136-145)
[2017-05-25 18:38] LABS: BILIRUBIN,DIRECT 12.2 MG/DL (0.0-0.3)
[2017-05-25 20:00] VITALS: BP 122/73
--- NOTE | 2017-05-25 20:17 | General Progress Note ---
Assessment/Plan Problem List: (1) QAMAR (acute kidney injury) ICD Codes: N17.9 - Acute kidney failure, unspecified SNOMED: 94730900 (2) Liver cirrhosis, alcoholic ICD Codes: K70.30 - Alcoholic cirrhosis of liver without ascites SNOMED: 911588147, 811512852 (3) Jaundice of recent onset ICD Codes: R17 - Unspecified jaundice SNOMED: 43352307 (4) Sepsis ICD Codes: A41.9 - Sepsis, unspecified organism SNOMED: 98346931 (5) Leukocytosis ICD Codes: D72.829 - Elevated white blood cell count, unspecified SNOMED: 516266816, 231402005 (6) Pneumonia ICD Codes: J18.9 - Pneumonia, unspecified organism SNOMED: 534661357 (7) Ascites due to alcoholic cirrhosis ICD Codes: K70.31 - Alcoholic cirrhosis of liver with ascites SNOMED: 9528257440734433 (8) Hypoxia ICD Codes: R09.02 - Hypoxemia SNOMED: 174147154 Status: unchanged Assessment/Plan etoh cirrhosis afebrile sepsis pna abx per id jaundice poor prognosis resp insuff Subjective ROS Limited/Unobtainable: Yes Allergies: Coded Allergies: No Known Allergies (Unverified , 04/29/17) Objective Last 24 Hour Vital Signs Date Time Temp Pulse Resp B/P (MAP) Pulse Ox O2 Delivery O2 Flow Rate FiO2 05/25/17 20:00 98.4 99 18 122/73 93 Venturi Mask 15.0 102 05/25/17 19:30 114/63 05/25/17 16:00 97.9 105 19 136/63 94 Venturi Mask 55 05/25/17 16:00 104 05/25/17 15:30 92 Venturi Mask 14.0 55 05/25/17 12:00 101 05/25/17 12:00 98.1 105 19 137/65 98 Non-Rebreather 15.0 05/25/17 08:00 98.8 103 18 122/72 97 Non-Rebreather 05/25/17 08:00 100 05/25/17 07:32 Non-Rebreather 15.0 100 05/25/17 07:32 95 Non-Rebreather 15.0 100 05/25/17 07:30 109 20 Non-Rebreather 15.0 100 05/25/17 04:00 100 11/5/17 04:00 97.6 106 20 121/72 96 Non-Rebreather 15.0 100 05/25/17 00:03 92 05/25/17 00:00 98.2 106 22 130/88 98 Non-Rebreather 100 05/24/17 22:06 Non-Rebreather 15.0 100 Intake and Output 05/25/17 05/26/17 19:00 07:00 Intake Total 911.666 ml Balance 911.666 ml Intake IV Total 911.666 ml # Voids 2 # Bowel Movements 3 Laboratory Tests 05/25/17 09:30: White Blood Count 20.9H, Red Blood Count 2.45L, Hemoglobin 9.2L, Hematocrit 27.8L, Mean Corpuscular Volume 114H, Mean Corpuscular Hemoglobin 37.6H, Mean Corpuscular Hemoglobin Concent 33.0, Red Cell Distribution Width 15.6H, Platelet Count 119L, Mean Platelet Volume 6.4L, Neutrophils (%) (Auto) , Lymphocytes (%) (Auto) , Monocytes (%) (Auto) , Eosinophils (%) (Auto) , Basophils (%) (Auto) , Differential Total Cells Counted 100, Neutrophils % ( Manual) 79H, Lymphocytes % (Manual) 2L, Monocytes % (Manual) 5, Eosinophils % ( Manual) 0, Basophils % (Manual) 0, Band Neutrophils 14H, Platelet Estimate DecreasedL, Platelet Morphology Normal, Hypochromasia 1+, Anisocytosis 1+, Macrocytosis 1+, Prothrombin Time 16.3H, Prothromb Time International Ratio 1.6H , Sodium Level 138, Potassium Level 4.0, Chloride Level 106, Carbon Dioxide Level 21, Anion Gap 11, Blood Urea Nitrogen 55H, Creatinine 1.7H, Estimat Glomerular Filtration Rate 44.9, Glucose Level 109H, Hemoglobin A1c 4.4, Uric Acid 6.0, Calcium Level 7.8L, Phosphorus Level 4.0, Magnesium Level 1.9, Ferritin 792H, Total Bilirubin 14.5H, Direct Bilirubin 12.3H, Gamma Glutamyl Transpeptidase 517H, Aspartate Amino Transf (AST/SGOT) 122H, Alanine Aminotransferase (ALT/SGPT) 77, Alkaline Phosphatase 519H, Total Creatine Kinase 20L, C-Reactive Protein, Quantitative 6.2H, Pro-B-Type Natriuretic Peptide 1861H, Total Protein 4.7L, Albumin 1.4L, Globulin 3.3, Albumin/Globulin Ratio 0.4L, Triglycerides Level 147, Cholesterol Level 114, LDL Cholesterol 97, HDL Cholesterol 14L, Cholesterol/HDL Ratio 8.1H, Lipase 495H, Vitamin B12 Level > 2000H, Folate 11.0, Thyroid Stimulating Hormone (TSH) 3.032 05/25/17 16:35: Sodium Level 140, Potassium Level 3.6, Chloride Level 107, Carbon Dioxide Level 23, Anion Gap 10, Blood Urea Nitrogen 54H, Creatinine 1.8H, Estimat Glomerular Filtration Rate 42.0, Glucose Level 107H, Calcium Level 7.6L, Total Bilirubin 13.9H, Direct Bilirubin 12.2H, Aspartate Amino Transf (AST/SGOT) 120H, Alanine Aminotransferase (ALT/SGPT) 75, Alkaline Phosphatase 522H, Total Protein 4.0L, Albumin 1.3L, Globulin 2.7, Albumin/Globulin Ratio 0.5L, Iron Level 17L, Total Iron Binding Capacity 54L, Percent Iron Saturation 31, Unsaturated Iron Binding 37L, Prostate Specific Antigen 0.2, Free Prostate Specific Antigen [Pending], Percent Free Prostate Specific Ag [Pending], Prostate Specific Antigen Total [ Pending] Height (Feet): 6 Height (Inches): 0.00 Weight (Pounds): 222 General Appearance: confused Sunday Choi MD May 25, 2017 20:17
--- NOTE | 2017-05-25 21:45 | Infectious Diseases Prog Note ---
Assessment/Plan Problems: (1) HCAP (healthcare-associated pneumonia) Assessment & Plan: with extensive B/L infiltrates , can't rule out pneumonia , continue zosyn and stop vancomycin to avoid nephrotoxicity ,pending sputum culture (2) Sepsis Assessment & Plan: with significant leukocytosis , on vancomycin and zosyn , pending blood culture (3) Ascites due to alcoholic cirrhosis Assessment & Plan: with anasarca, needs diuresis, and daily weight monitor, consider paracentesis and fluids to be sent for culture (4) Liver cirrhosis, alcoholic Assessment & Plan: continue supportive care, GI is following (5) QAMAR (acute kidney injury) Assessment & Plan: suspect hepatorenal, monitor urine output, and avoid nephrotoxic medicine (6) Acute respiratory failure Assessment & Plan: due to the above , off BIPAP, on venturi mask , monitor ABG , and CXR, pulmonary is following Subjective Constitutional: Reports: fatigue HEENT: Reports: no symptoms Respiratory: Reports: shortness of breath, dry cough Breasts: Reports: no symptoms Cardiovascular: Reports: no symptoms Gastrointestinal/Abdominal: Reports: bloating, other - distension Genitourinary: Reports: no symptoms Neurologic: Reports: weakness, confusion Psychiatric: Reports: depression Skin: Reports: ulcer, other - jaundice Hematologic: Reports: no symptoms Allergies: Coded Allergies: No Known Allergies (Unverified , 04/29/17) Objective Vital Signs Last 24 Hour Vital Signs Date Time Temp Pulse Resp B/P (MAP) Pulse Ox O2 Delivery O2 Flow Rate FiO2 05/25/17 20:00 98.4 99 18 122/73 93 Venturi Mask 15.0 102 05/25/17 19:30 114/63 05/25/17 16:00 97.9 105 19 136/63 94 Venturi Mask 55 05/25/17 16:00 104 05/25/17 15:30 92 Venturi Mask 14.0 55 05/25/17 12:00 101 05/25/17 12:00 98.1 105 19 137/65 98 Non-Rebreather 15.0 05/25/17 08:00 98.8 103 18 122/72 97 Non-Rebreather 05/25/17 08:00 100 05/25/17 07:32 Non-Rebreather 15.0 100 05/25/17 07:32 95 Non-Rebreather 15.0 100 05/25/17 07:30 109 20 Non-Rebreather 15.0 100 05/25/17 04:00 100 05/25/17 04:00 97.6 106 20 121/72 96 Non-Rebreather 15.0 100 05/25/17 00:03 92 05/25/17 00:00 98.2 106 22 130/88 98 Non-Rebreather 100 05/24/17 22:06 Non-Rebreather 15.0 100 Height (Feet): 6 Height (Inches): 0.00 Weight (Pounds): 222 General Appearance: WD/WN, no acute distress HEENT: normocephalic, atraumatic, mucous membranes moist, PERRL, pharynx normal , supple, no JVD, other - icteric sclera Respiratory/Chest: chest wall non-tender, no respiratory distress, no accessory muscle use, decreased breath sounds, crackles/rales Cardiovascular: normal peripheral pulses, normal rate, regular rhythm, no gallop/murmur, no JVD Abdomen: normal bowel sounds, soft, non tender, no organomegaly, non distended , no mass, no scars Extremities: no cyanosis, no clubbing Skin: no rash, no lesions, ulcers Neurologic/Psychiatric: alert, responsive Musculoskeletal: normal muscle bulk Laboratory Tests Test 05/25/17 09:30 05/25/17 16:35 White Blood Count 20.9 K/UL (4.8-10.8) H Red Blood Count 2.45 M/UL (4.70-6.10) L Hemoglobin 9.2 G/DL (14.2-18.0) L Hematocrit 27.8 % (42.0-52.0) L Mean Corpuscular Volume 114 FL (80-99) H Mean Corpuscular Hemoglobin 37.6 PG (27.0-31.0) H Mean Corpuscular Hemoglobin Concent 33.0 G/DL (32.0-36.0) Red Cell Distribution Width 15.6 % (11.6-14.8) H Platelet Count 119 K/UL (150-450) L Mean Platelet Volume 6.4 FL (6.5-10.1) L Neutrophils (%) (Auto) % (45.0-75.0) Lymphocytes (%) (Auto) % (20.0-45.0) Monocytes (%) (Auto) % (1.0-10.0) Eosinophils (%) (Auto) % (0.0-3.0) Basophils (%) (Auto) % (0.0-2.0) Differential Total Cells Counted 100 Neutrophils % (Manual) 79 % (45-75) H Lymphocytes % (Manual) 2 % (20-45) L Monocytes % (Manual) 5 % (1-10) Eosinophils % (Manual) 0 % (0-3) Basophils % (Manual) 0 % (0-2) Band Neutrophils 14 % (0-8) H Platelet Estimate Decreased L Platelet Morphology Normal Hypochromasia 1+ Anisocytosis 1+ Macrocytosis 1+ Prothrombin Time 16.3 SEC (9.30-11.50) H Prothromb Time International Ratio 1.6 (0.9-1.1) H Sodium Level 138 MMOL/L (136-145) 140 MMOL/L (136-145) Potassium Level 4.0 MMOL/L (3.5-5.1) 3.6 MMOL/L (3.5-5.1) Chloride Level 106 MMOL/L (98-107) 107 MMOL/L (98-107) Carbon Dioxide Level 21 MMOL/L (21-32) 23 MMOL/L (21-32) Anion Gap 11 mmol/L (5-15) 10 mmol/L (5-15) Blood Urea Nitrogen 55 mg/dL (7-18) H 54 mg/dL (7-18) H Creatinine 1.7 MG/DL (0.55-1.30) H 1.8 MG/DL (0.55-1.30) H Estimat Glomerular Filtration Rate 44.9 mL/min (>60) 42.0 mL/min (>60) Glucose Level 109 MG/DL (74-106) H 107 MG/DL (74-106) H Hemoglobin A1c 4.4 % (4.3-6.0) Uric Acid 6.0 MG/DL (2.6-7.2) Calcium Level 7.8 MG/DL (8.5-10.1) L 7.6 MG/DL (8.5-10.1) L Phosphorus Level 4.0 MG/DL (2.5-4.9) Magnesium Level 1.9 MG/DL (1.8-2.4) Ferritin 792 NG/ML (8-388) H Total Bilirubin 14.5 MG/DL (0.2-1.0) H 13.9 MG/DL (0.2-1.0) H Direct Bilirubin 12.3 MG/DL (0.0-0.3) H 12.2 MG/DL (0.0-0.3) H Gamma Glutamyl Transpeptidase 517 U/L (5-85) H Aspartate Amino Transf (AST/SGOT) 122 U/L (15-37) H 120 U/L (15-37) H Alanine Aminotransferase (ALT/SGPT) 77 U/L (12-78) 75 U/L (12-78) Alkaline Phosphatase 519 U/L (46-116) H 522 U/L (46-116) H Total Creatine Kinase 20 U/L (26-308) L C-Reactive Protein, Quantitative 6.2 mg/dL (0.00-0.90) H Pro-B-Type Natriuretic Peptide 1861 pg/mL (0-125) H Total Protein 4.7 G/DL (6.4-8.2) L 4.0 G/DL (6.4-8.2) L Albumin 1.4 G/DL (3.4-5.0) L 1.3 G/DL (3.4-5.0) L Globulin 3.3 g/dL 2.7 g/dL Albumin/Globulin Ratio 0.4 (1.0-2.7) L 0.5 (1.0-2.7) L Triglycerides Level 147 MG/DL (0-200) Cholesterol Level 114 MG/DL (< 200) LDL Cholesterol 97 mg/dL (<100) HDL Cholesterol 14 MG/DL (40-60) L Cholesterol/HDL Ratio 8.1 (3.3-4.4) H Lipase 495 U/L (73-393) H Vitamin B12 Level > 2000 PG/ML (193-986) H Folate 11.0 NG/ML (3.1-17.5) Thyroid Stimulating Hormone (TSH) 3.032 uiU/mL (0.360-3.740) Iron Level 17 ug/dL (50-175) L Total Iron Binding Capacity 54 ug/dL (250-450) L Percent Iron Saturation 31 % (15-50) Unsaturated Iron Binding 37 ug/dL (112-346) L Prostate Specific Antigen 0.2 ng/mL (0.0-4.0) Free Prostate Specific Antigen Pending Percent Free Prostate Specific Ag Pending Prostate Specific Antigen Total Pending Current Medications Medications (Trade) Dose Ordered Sig/Leonard Route PRN Reason Start Time Stop Time Status Last Admin Dose Admin Albuterol Sulfate (Proventil MDI) 2 puff BIDPRN PRN INH Shortness of Breath 05/24/17 21:45 06/23/17 21:44 Clotrimazole (Lotrimin) 1 applic EVERY 12 HOURS TOPIC 05/25/17 14:00 06/24/17 13:59 05/25/17 20:31 Dextrose/Sodium Chloride 1,000 ml @ 50 mls/hr Q20H IV 05/24/17 22:00 06/23/17 21:59 05/25/17 18:23 Famotidine (Pepcid I.v.) 20 mg Q12HR IVP 05/25/17 21:00 06/24/17 20:59 05/25/17 20:31 Lactulose (Cephulac) 20 gm DAILY ORAL 05/25/17 09:00 06/24/17 08:59 05/25/17 09:08 Metoclopramide HCl (Reglan) 10 mg Q6H PRN IVP Nausea & Vomiting 05/24/17 21:30 06/23/17 21:29 Midodrine (Pro-Amatine) 10 mg THREE TIMES A DAY ORAL 05/25/17 09:00 06/24/17 08:59 05/25/17 18:27 Pentoxifylline (TRENtal) 400 mg THREE TIMES A DAY ORAL 05/25/17 19:00 06/24/17 18:59 05/25/17 19:30 Piperacillin/ Tazobactam/ Dextrose 50 ml @ 12.5 mls/hr Q8HR@0400,1200,2000 IVPB 05/25/17 04:00 06/01/17 03:59 05/25/17 20:31 Tamsulosin HCl (Flomax) 0.4 mg BEDTIME ORAL 05/25/17 22:00 06/24/17 21:59 Thiamine HCl (Vitamin B1) 100 mg DAILY ORAL 05/25/17 09:00 06/24/17 08:59 05/25/17 09:08 Vitamin D (Vitamin D) 1,000 intlu DAILY ORAL 05/25/17 09:00 06/24/17 08:59 05/25/17 09:08 Janae Lopez M.D. May 25, 2017 21:44
[2017-05-25] MEDS: Tamsulosin 0.4mg cap ORAL SCH (22:22)
--- NOTE | 2017-05-25 22:45 | Consultation ---
DATE OF CONSULTATION: 05/24/2017 HEMATOLOGY/ONCOLOGY CONSULTATION CONSULTING PHYSICIAN: Agustín Hurley M.D. REASON FOR CONSULTATION: Thrombocytopenia and anemia. CURRENT COMPLAINT AND HISTORY OF PRESENT ILLNESS: Today, I had an opportunity to see this patient, who is a 42-year-old delightful gentleman with a past medical history remarkable for history of anemia, GI bleed, thrombocytopenia, liver cirrhosis, and decompensated liver failure. The patient has a history of prolonged hospitalization secondary to liver cirrhosis, ascites, liver failure, pulmonary infiltrate, and effusion. The patient has a history of alcohol abuse, severe jaundice, hepatic encephalopathy, and shortness of breath. During evaluation in [facility], it was found that the patient developed significant coagulopathy as well as leukocytosis, anemia, and thrombocytopenia. My service was called to handle the issue of blood dyscrasia. PAST MEDICAL HISTORY: 1. History of alcohol abuse. 2. History of tobacco abuse. 3. Alcoholic liver cirrhosis. 4. Anemia of chronic disease. 5. Anemia secondary to GI bleed. 6. History of thrombocytopenia. 7. Respiratory failure. 8. Pulmonary infiltrate. 9. Pulmonary effusion. 10. Urinary tract infection. 11. Liver failure. 12. Hepatic encephalopathy. MEDICATIONS: 1. Tamsulosin. 2. Clotrimazole. 3. Protonix. 4. Vitamin D. 5. Lactulose. 6. Midodrine. 7. Thiamine. 8. Piperacillin. 9. Dextrose. 10. Albuterol. 11. Reglan. 12. Vancomycin. FAMILY HISTORY: Noncontributory. SOCIAL HISTORY: History of smoking. History of alcohol abuse. REVIEW OF SYSTEMS: Unobtainable secondary to patient's confusion. PHYSICAL EXAMINATION: VITAL SIGNS: T-max 97, respiratory rate 20, heart rate 80, and blood pressure 125/75. HEENT: Head, normocephalic and atraumatic. NECK: Supple. No thyroid enlargement. No lymphadenopathy. LUNGS: Decreased breath sounds bilaterally. He has a few rhonchi in the base. HEART: S1 and S2 regular. ABDOMEN: Still benign. No organomegaly present. Bowel sounds present. EXTREMITIES: No cyanosis, clubbing, or edema. LABORATORY DATA: WBC 26.7, hemoglobin 10.1, hematocrit 32.3, and platelet count 186. Coagulation shows PT 16.4 and INR 1.6. Chemistry shows creatinine of 1.6, alkaline phosphatase 564, ammonia 29, and bilirubin 16.3. IMPRESSION: 1. Leukocytosis with left shift. 2. Anemia of chronic disease. 3. Anemia of kidney disease. 4. Anemia of iron deficiency. 5. Decreased hemoglobin and hematocrit secondary to gastrointestinal bleed. 6. History of alcohol abuse. 7. Alcoholic liver cirrhosis. 8. Bilirubinemia. 9. Elevated liver function tests. 10. History of thrombocytopenia. 11. Sepsis. 12. Pneumonia. 13. Respiratory failure. 14. Hepatic encephalopathy. 15. Urinary tract infection. 16. History of pulmonary infiltrate. 17. History of pleural effusion. 18. History of alcohol abuse. 19. History of tobacco abuse. 20. Failure to thrive. RECOMMENDATIONS: 1. Watch count. 2. Watch coagulopathy. 3. PRBC transfusion on a p.r.n. basis. 4. Platelet transfusion on a p.r.n. basis. 5. No heparin. 6. No aspirin. 7. SCD (compression boots) for DVT prophylaxis. 8. Skin care. 9. Nutrition. 10. Respiratory treatment. 11. Close followup. 12. Discussed with the staff. Agustín Hurley MD DR: JOSE JOB#: [id number] CC:
[2017-05-26] VITALS: BP 122/72
--- NOTE | 2017-05-26 02:15 | Consultation ---
DATE OF CONSULTATION: 05/25/2017 GASTROLOGY CONSULTATION CHIEF COMPLAINT: I was asked to see this patient by Dr. Choi for evaluation of liver failure. HISTORY OF PRESENT ILLNESS: The patient is an unfortunate pleasant 42-year-old white man who was recently admitted a month ago to [facility] with liver failure due to alcohol abuse. He had a complex hospital course and he was here for some extended time. He had jaundice and altered mental status, confusion, edema, and shortness of breath. He was eventually treated and stabilized and is discharged home. According to mother, he only spent about a week or so at home and now he is readmitted for confusion and worsening jaundice and edema. The patient told me that he had not drank since prior to the previous admission, although another practitioner's note states that he had consumed alcohol after being discharged. The patient has no abdominal pain, nausea or vomiting, but he feels very ill. PAST MEDICAL HISTORY: History of alcoholic liver with cirrhosis, decompensated liver disease, history of gastrointestinal bleeding, coagulopathy, edema, and encephalopathy. FAMILY HISTORY: Noncontributory. ALLERGIES: None. SOCIAL HISTORY: The patient lives at home. His mother has to take care of him. He has a history of alcohol use and denies smoking. REVIEW OF SYSTEMS: Otherwise negative. PHYSICAL EXAMINATION: GENERAL: A debilitated, jaundiced man, seen in his room with his mother at bedside. HEENT: Normocephalic and atraumatic. Sclerae are deeply icteric. Oropharynx is clear. NECK: Supple. CHEST: Scattered rhonchi. CARDIOVASCULAR: Revealed a regular rate. ABDOMEN: Soft and mildly distended. No tenderness. EXTREMITIES: 1+ bilateral edema. NEUROLOGIC: Did not show any gross encephalopathy, although the patient was slow to respond. LABORATORY DATA: Noted. ASSESSMENT: This patient presents with cirrhosis as well as liver failure with a MELD score of 27 based on today's numbers. His prognosis is very poor and he ultimately would benefit from liver transplantation. At this time, his recent alcohol use will make him not a transplant candidate. Nonetheless, he should be instructed to completely stop drinking alcohol and he should be aggressively treated with diuretics and SBP prophylaxis and lactulose and Xifaxan. I will check a paracentesis to rule out spontaneous bacterial peritonitis as the reason for the current admission. In the meantime, broad-spectrum antibiotics should be given since his white count is high. His prognosis is relatively very poor, and he should be seen by liver transplant team as an outpatient so that they can follow his course while he is abstaining from alcohol. RECOMMENDATIONS: 1. Broad-spectrum antibiotics. 2. Lactulose. 3. Repeat ammonia in the morning to verify the number. 4. Paracentesis. 5. We will check alpha fetoprotein. 6. Abdominal ultrasound. 7. Further recommendations to follow. Thank you for asking me to participate in the care of this patient. Angel Webb M.D. DR: DWAYNE JOB#: [id number] CC:
[2017-05-26 04:00] VITALS: BP 123/72
[2017-05-26] MEDS: Zosyn 3.375gm/50ml Premix 50 ML IVPB SCH ×3 (04:25→20:51)
[2017-05-26 06:01] LABS: MEAN CORPUSCULAR HEMOGLOBIN 37.6 PG (27.0-31.0); MEAN CORPUSCULAR HGB CONC 32.7 G/DL (32.0-36.0); MEAN CORPUSCULAR VOLUME 115 FL (80-99); MEAN PLATELET VOLUME 6.2 FL (6.5-10.1); PLATELET COUNT 107 K/UL (150-450); RED BLOOD COUNT 2.44 M/UL (4.70-6.10); WHITE BLOOD COUNT 20.6 K/UL (4.8-10.8)
[2017-05-26 08:00] VITALS: BP 121/73
[2017-05-26 08:41] LABS: ANISOCYTOSIS 1+; BAND NEUTROPHILS % (MANUAL) 3 % (0-8); BASOPHILS % (MANUAL) 0 % (0-2); EOSINOPHILS % (MANUAL) 1 % (0-3); HYPOCHROMASIA 1+; LYMPHOCYTES % (MANUAL) 3 % (20-45); MACROCYTES 1+; NEUTROPHILS % (MANUAL) 90 % (45-75); PLATELET ESTIMATE DECREASED; PLATELET MORPHOLOGY NORMAL; TOTAL CELLS COUNTED 100
--- NOTE | 2017-05-26 08:46 | History and Physical Report ---
DATE OF ADMISSION: 05/24/2017 HISTORY OF PRESENT ILLNESS: The patient is very for hypoxia, effusion. The patient also was recently hospitalized for cirrhosis and persistent leukocytosis and severe jaundice. The patient comes in with alcoholic cirrhosis, difficulty breathing, weakness, hypoxic. Chest x-ray, bilateral infiltrates. The patient has severe leukocytosis, hyperkalemia, and coagulopathy from the seizure. The patient is a poor historian and cannot rely upon his history. He is encephalopathic. PAST MEDICAL HISTORY: Alcoholic cirrhosis, jaundice, leukemia, and GERD. PAST SURGICAL HISTORY: Denies. MEDICATIONS: Midodrine, lactulose, thiamine, and multivitamin. ALLERGIES: No known drug allergies. SOCIAL HISTORY: Has history of alcohol abuse. REVIEW OF SYSTEMS: HEENT: Denies headaches. RESPIRATORY: Denies shortness of breath. Denies cough. CARDIOVASCULAR: Denies chest pain. GASTROINTESTINAL: Denies nausea or vomiting. Does have abdominal pain. EXTREMITIES: Does have varicose veins. CENTRAL NERVOUS SYSTEM: No change in vision or speech pattern; however, the patient is encephalopathic, cannot rely upon his history. PHYSICAL EXAMINATION: VITAL SIGNS: Temperature 98 degrees, pulse 109, and blood pressure 137/71. HEENT: Jaundice. CHEST: Bibasilar rales. CARDIOVASCULAR: Irregularly irregular. GASTROINTESTINAL: Soft, distended. Positive bowel sounds. ABDOMEN: Nontender. EXTREMITIES: A 1+ edema. NEUROLOGIC: Oriented x1. LABORATORY DATA: WBC 26.0, hemoglobin 10.1, and platelets 186. Sodium 136, potassium 5.3, BUN 52, creatinine 1.6, glucose 141. Total bilirubin 16.3, AST 139, ALT 94. IMPRESSION AND PLAN: 1. Jaundice. 2. Persistent leukocytosis. 3. Persistent hyperkalemia. 4. Elevated LFTs as well as severe leukocytosis. 5. Very poor prognosis. 6. Cirrhosis. 7. Hypoxia. 8. Bilateral pneumonia, rule out sepsis. 9. Coagulopathy. I have asked Dr. Lopez, Dr. Daly, Dr. Mcdowell, Dr. Wasserman, Dr. Joshua Hurley to see the patient for the above-mentioned diagnoses and treatment. Sunday Choi M.D. DR: NAZ JOB#: [id number] CC:
[2017-05-26] MEDS: Thiamine 100mg tab ORAL SCH (09:09)
[2017-05-26] MEDS: Vitamin D 1000 IU Tab ORAL SCH (09:09)
[2017-05-26] MEDS: Lactulose 20gm/30ml UDC ORAL SCH (09:10)
[2017-05-26] MEDS: Midodrine 10mg tab ORAL SCH ×3 (09:10→17:54)
[2017-05-26 11:01] LABS: INR 1.6 (0.9-1.1); PROTHROMBIN TIME 16.6 SEC (9.30-11.50)
--- NOTE | 2017-05-26 11:10 | Nephrology Progress Note ---
Assessment/Plan Problem List: (1) Liver cirrhosis, alcoholic (2) Ascites due to alcoholic cirrhosis (3) Renal failure (ARF), acute on chronic Assessment Renal failure on admit , likely hepatorenal- Cr 1.8 pneumonia, leukocytosis h/o low Na due to anasarca High K , Kayexelate given Jaundice Anemia low alb Plan Plan: Antibiotics- avoid nephrotoxics- monitor renal parameters optimize pulmonary and renal and hepatic status as possible. Subjective ROS Limited/Unobtainable: No Constitutional: Reports: malaise Objective Objective Last 24 Hour Vital Signs Date Time Temp Pulse Resp B/P (MAP) Pulse Ox O2 Delivery O2 Flow Rate FiO2 05/26/17 09:09 121/73 05/26/17 08:00 99 05/26/17 08:00 97.7 96 18 121/73 97 Venturi Mask 15.0 05/26/17 07:38 Venturi Mask 14.0 55 05/26/17 07:38 95 Venturi Mask 14.0 55 05/26/17 07:37 100 18 Venturi Mask 14.0 55 05/26/17 04:15 105 05/26/17 04:00 97.9 101 19 123/72 97 Venturi Mask 15.0 106 05/26/17 00:00 98.3 100 18 122/72 95 Venturi Mask 15.0 94 05/25/17 23:52 102 05/25/17 20:00 98.4 99 18 122/73 93 Venturi Mask 15.0 102 05/25/17 19:37 95 05/25/17 19:30 114/63 05/25/17 16:00 97.9 105 19 136/63 94 Venturi Mask 55 05/25/17 16:00 104 05/25/17 15:30 92 Venturi Mask 14.0 55 05/25/17 12:00 101 05/25/17 12:00 98.1 105 19 137/65 98 Non-Rebreather 15.0 Laboratory Tests 05/25/17 16:35: Sodium Level 140, Potassium Level 3.6, Chloride Level 107, Carbon Dioxide Level 23, Anion Gap 10, Blood Urea Nitrogen 54H, Creatinine 1.8H, Estimat Glomerular Filtration Rate 42.0, Glucose Level 107H, Calcium Level 7.6L, Iron Level 17L, Total Iron Binding Capacity 54L, Percent Iron Saturation 31, Unsaturated Iron Binding 37L, Total Bilirubin 13.9H, Direct Bilirubin 12.2H, Aspartate Amino Transf (AST/SGOT) 120H, Alanine Aminotransferase (ALT/SGPT) 75, Alkaline Phosphatase 522H, Total Protein 4.0L, Albumin 1.3L, Globulin 2.7, Albumin/ Globulin Ratio 0.5L, Prostate Specific Antigen 0.2, Free Prostate Specific Antigen [Pending], Percent Free Prostate Specific Ag [Pending], Prostate Specific Antigen Total [Pending] 05/26/17 04:50: White Blood Count 20.6H, Red Blood Count 2.44L, Hemoglobin 9.2L, Hematocrit 28.1L, Mean Corpuscular Volume 115H, Mean Corpuscular Hemoglobin 37.6H, Mean Corpuscular Hemoglobin Concent 32.7, Red Cell Distribution Width 16.0H, Platelet Count 107L, Mean Platelet Volume 6.2L, Neutrophils (%) (Auto) , Lymphocytes (%) (Auto) , Monocytes (%) (Auto) , Eosinophils (%) (Auto) , Basophils (%) (Auto) , Differential Total Cells Counted 100, Neutrophils % ( Manual) 90H, Lymphocytes % (Manual) 3L, Monocytes % (Manual) 3, Eosinophils % ( Manual) 1, Basophils % (Manual) 0, Band Neutrophils 3, Platelet Estimate DecreasedL, Platelet Morphology Normal, Hypochromasia 1+, Anisocytosis 1+, Macrocytosis 1+, Ammonia 25, Alpha Fetoprotein [Pending] 05/26/17 09:45: Prothrombin Time [Pending], Prothromb Time International Ratio [Pending] Height (Feet): 6 Height (Inches): 0.00 Weight (Pounds): 222 General Appearance: no apparent distress, lethargic, other - jaundiced Cardiovascular: tachycardia Respiratory/Chest: decreased breath sounds Abdomen: distended Objective no other changes MIKAELA AYOUB May 26, 2017 11:10
--- NOTE | 2017-05-26 11:14 | General Progress Note ---
Assessment/Plan Problem List: (1) QAMAR (acute kidney injury) ICD Codes: N17.9 - Acute kidney failure, unspecified SNOMED: 92790817 (2) Liver cirrhosis, alcoholic ICD Codes: K70.30 - Alcoholic cirrhosis of liver without ascites SNOMED: 570197567, 958746207 (3) Jaundice of recent onset ICD Codes: R17 - Unspecified jaundice SNOMED: 03242618 (4) Sepsis ICD Codes: A41.9 - Sepsis, unspecified organism SNOMED: 49147466 (5) Leukocytosis ICD Codes: D72.829 - Elevated white blood cell count, unspecified SNOMED: 323104262, 375605404 (6) Pneumonia ICD Codes: J18.9 - Pneumonia, unspecified organism SNOMED: 527705556 (7) Ascites due to alcoholic cirrhosis ICD Codes: K70.31 - Alcoholic cirrhosis of liver with ascites SNOMED: 6341587990414526 (8) Hypoxia ICD Codes: R09.02 - Hypoxemia SNOMED: 983103395 Status: progressing Assessment/Plan etoh cirrhosis no wheezing vitals stable leukocytosis pna improving on non rebreather Subjective ROS Limited/Unobtainable: Yes Allergies: Coded Allergies: No Known Allergies (Unverified , 04/29/17) Objective Last 24 Hour Vital Signs Date Time Temp Pulse Resp B/P (MAP) Pulse Ox O2 Delivery O2 Flow Rate FiO2 05/26/17 09:09 121/73 05/26/17 08:00 99 05/26/17 08:00 97.7 96 18 121/73 97 Venturi Mask 15.0 05/26/17 07:38 Venturi Mask 14.0 55 05/26/17 07:38 95 Venturi Mask 14.0 55 05/26/17 07:37 100 18 Venturi Mask 14.0 55 05/26/17 04:15 105 05/26/17 04:00 97.9 101 19 123/72 97 Venturi Mask 15.0 106 05/26/17 00:00 98.3 100 18 122/72 95 Venturi Mask 15.0 94 05/25/17 23:52 102 05/25/17 20:00 98.4 99 18 122/73 93 Venturi Mask 15.0 102 05/25/17 19:37 95 05/25/17 19:30 114/63 05/25/17 16:00 97.9 105 19 136/63 94 Venturi Mask 55 05/25/17 16:00 104 05/25/17 15:30 92 Venturi Mask 14.0 55 05/25/17 12:00 101 05/25/17 12:00 98.1 105 19 137/65 98 Non-Rebreather 15.0 Laboratory Tests 05/25/17 16:35: Sodium Level 140, Potassium Level 3.6, Chloride Level 107, Carbon Dioxide Level 23, Anion Gap 10, Blood Urea Nitrogen 54H, Creatinine 1.8H, Estimat Glomerular Filtration Rate 42.0, Glucose Level 107H, Calcium Level 7.6L, Iron Level 17L, Total Iron Binding Capacity 54L, Percent Iron Saturation 31, Unsaturated Iron Binding 37L, Total Bilirubin 13.9H, Direct Bilirubin 12.2H, Aspartate Amino Transf (AST/SGOT) 120H, Alanine Aminotransferase (ALT/SGPT) 75, Alkaline Phosphatase 522H, Total Protein 4.0L, Albumin 1.3L, Globulin 2.7, Albumin/ Globulin Ratio 0.5L, Prostate Specific Antigen 0.2, Free Prostate Specific Antigen [Pending], Percent Free Prostate Specific Ag [Pending], Prostate Specific Antigen Total [Pending] 05/26/17 04:50: White Blood Count 20.6H, Red Blood Count 2.44L, Hemoglobin 9.2L, Hematocrit 28.1L, Mean Corpuscular Volume 115H, Mean Corpuscular Hemoglobin 37.6H, Mean Corpuscular Hemoglobin Concent 32.7, Red Cell Distribution Width 16.0H, Platelet Count 107L, Mean Platelet Volume 6.2L, Neutrophils (%) (Auto) , Lymphocytes (%) (Auto) , Monocytes (%) (Auto) , Eosinophils (%) (Auto) , Basophils (%) (Auto) , Differential Total Cells Counted 100, Neutrophils % ( Manual) 90H, Lymphocytes % (Manual) 3L, Monocytes % (Manual) 3, Eosinophils % ( Manual) 1, Basophils % (Manual) 0, Band Neutrophils 3, Platelet Estimate DecreasedL, Platelet Morphology Normal, Hypochromasia 1+, Anisocytosis 1+, Macrocytosis 1+, Ammonia 25, Alpha Fetoprotein [Pending] 05/26/17 09:45: Prothrombin Time 16.6H, Prothromb Time International Ratio 1.6H Height (Feet): 6 Height (Inches): 0.00 Weight (Pounds): 222 Neck: supple Cardiovascular: normal peripheral pulses Respiratory/Chest: lungs clear Sunday Choi MD May 26, 2017 11:14
[2017-05-26 11:59] VITALS: BP 123/72
--- NOTE | 2017-05-26 12:46 | Pulmonology Progress Note ---
Assessment/Plan Assessment/Plan ASSESSMENT: Respiratory distress, improved possible pneumonia volume overload decompensated liver failure cirrhosis ascites altered mental status. PLAN: as needed BiPAP for respiratory distress as needed ABG if altered mental nebulizer treatments O2 maintain to sats greater than 92%. Abx per ID aspiration precuations Subjective Constitutional: Denies: fever Respiratory: Reports: shortness of breath - better Allergies: Coded Allergies: No Known Allergies (Unverified , 04/29/17) Objective Last 24 Hour Vital Signs Date Time Temp Pulse Resp B/P (MAP) Pulse Ox O2 Delivery O2 Flow Rate FiO2 05/26/17 11:59 98.2 99 18 123/72 95 Nasal Cannula 2.0 05/26/17 09:09 121/73 05/26/17 08:00 99 05/26/17 08:00 97.7 96 18 121/73 97 Venturi Mask 15.0 05/26/17 07:38 Venturi Mask 14.0 55 05/26/17 07:38 95 Venturi Mask 14.0 55 05/26/17 07:37 100 18 Venturi Mask 14.0 55 05/26/17 04:15 105 05/26/17 04:00 97.9 101 19 123/72 97 Venturi Mask 15.0 106 05/26/17 00:00 98.3 100 18 122/72 95 Venturi Mask 15.0 94 05/25/17 23:52 102 05/25/17 20:00 98.4 99 18 122/73 93 Venturi Mask 15.0 102 05/25/17 19:37 95 05/25/17 19:30 114/63 05/25/17 16:00 97.9 105 19 136/63 94 Venturi Mask 55 05/25/17 16:00 104 05/25/17 15:30 92 Venturi Mask 14.0 55 Intake and Output 05/26/17 05/27/17 19:00 07:00 Intake Total 225.0 ml Balance 225.0 ml IV Total 225.0 ml Objective jaundice and scleral icterus General Appearance: no acute distress HEENT: atraumatic Respiratory/Chest: decreased breath sounds Cardiovascular: normal rate Abdomen: soft, non tender, other - ascites Extremities: other - 2+ edema Microbiology Date/Time Source Procedure Growth Status 05/24/17 12:30 Blood Blood Culture - Preliminary Resulted 05/24/17 12:30 Blood Blood Culture - Preliminary NO GROWTH AFTER 24 HOURS Resulted Laboratory Tests 05/25/17 16:35: Sodium Level 140, Potassium Level 3.6, Chloride Level 107, Carbon Dioxide Level 23, Anion Gap 10, Blood Urea Nitrogen 54H, Creatinine 1.8H, Estimat Glomerular Filtration Rate 42.0, Glucose Level 107H, Calcium Level 7.6L, Iron Level 17L, Total Iron Binding Capacity 54L, Percent Iron Saturation 31, Unsaturated Iron Binding 37L, Total Bilirubin 13.9H, Direct Bilirubin 12.2H, Aspartate Amino Transf (AST/SGOT) 120H, Alanine Aminotransferase (ALT/SGPT) 75, Alkaline Phosphatase 522H, Total Protein 4.0L, Albumin 1.3L, Globulin 2.7, Albumin/ Globulin Ratio 0.5L, Prostate Specific Antigen 0.2, Free Prostate Specific Antigen [Pending], Percent Free Prostate Specific Ag [Pending], Prostate Specific Antigen Total [Pending] 05/26/17 04:50: White Blood Count 20.6H, Red Blood Count 2.44L, Hemoglobin 9.2L, Hematocrit 28.1L, Mean Corpuscular Volume 115H, Mean Corpuscular Hemoglobin 37.6H, Mean Corpuscular Hemoglobin Concent 32.7, Red Cell Distribution Width 16.0H, Platelet Count 107L, Mean Platelet Volume 6.2L, Neutrophils (%) (Auto) , Lymphocytes (%) (Auto) , Monocytes (%) (Auto) , Eosinophils (%) (Auto) , Basophils (%) (Auto) , Differential Total Cells Counted 100, Neutrophils % ( Manual) 90H, Lymphocytes % (Manual) 3L, Monocytes % (Manual) 3, Eosinophils % ( Manual) 1, Basophils % (Manual) 0, Band Neutrophils 3, Platelet Estimate DecreasedL, Platelet Morphology Normal, Hypochromasia 1+, Anisocytosis 1+, Macrocytosis 1+, Ammonia 25, Alpha Fetoprotein [Pending] 05/26/17 09:45: Prothrombin Time 16.6H, Prothromb Time International Ratio 1.6H Current Medications Medications (Trade) Dose Ordered Sig/Leonard Route PRN Reason Start Time Stop Time Status Last Admin Dose Admin Albuterol Sulfate (Proventil MDI) 2 puff BIDPRN PRN INH Shortness of Breath 05/24/17 21:45 06/23/17 21:44 Clotrimazole (Lotrimin) 1 applic EVERY 12 HOURS TOPIC 05/25/17 14:00 06/24/17 13:59 05/26/17 09:10 Dextrose/Sodium Chloride 1,000 ml @ 50 mls/hr Q20H IV 05/24/17 22:00 06/23/17 21:59 05/25/17 18:23 Famotidine (Pepcid I.v.) 20 mg Q12HR IVP 05/25/17 21:00 06/24/17 20:59 05/26/17 09:09 Lactulose (Cephulac) 20 gm DAILY ORAL 05/25/17 09:00 06/24/17 08:59 05/26/17 09:10 Metoclopramide HCl (Reglan) 10 mg Q6H PRN IVP Nausea & Vomiting 05/24/17 21:30 06/23/17 21:29 Midodrine (Pro-Amatine) 10 mg THREE TIMES A DAY ORAL 05/25/17 09:00 06/24/17 08:59 05/26/17 09:10 Pentoxifylline (TRENtal) 400 mg THREE TIMES A DAY ORAL 05/25/17 19:00 06/24/17 18:59 05/26/17 09:09 Piperacillin/ Tazobactam/ Dextrose 50 ml @ 12.5 mls/hr Q8HR@0400,1200,2000 IVPB 05/25/17 04:00 06/01/17 03:59 05/26/17 12:06 Tamsulosin HCl (Flomax) 0.4 mg BEDTIME ORAL 05/25/17 22:00 06/24/17 21:59 05/25/17 22:22 Thiamine HCl (Vitamin B1) 100 mg DAILY ORAL 05/25/17 09:00 06/24/17 08:59 05/26/17 09:09 Vitamin D (Vitamin D) 1,000 intlu DAILY ORAL 05/25/17 09:00 06/24/17 08:59 05/26/17 09:09 JAMES NAVARRO May 26, 2017 12:46
[2017-05-26] MEDS: D5NS 1,000 ML IV SCH (14:00)
--- NOTE | 2017-05-26 15:05 | Diagnostic Imaging Report ---
Indication: Shortness of breath Comparison: 05/24/17 A single view chest radiograph was obtained. Findings: Interstitial opacities again demonstrated bilaterally. Right basilar atelectasis suspected again. Lung volumes are low. The heart is prominent. Impression: No change from the prior exam. Suspect CHF.
[2017-05-26 16:08] VITALS: BP 123/72
--- NOTE | 2017-05-26 16:18 | GI Progress Note ---
Assessment/Plan Problems: (1) Renal failure (ARF), acute on chronic ICD Codes: N17.9 - Acute kidney failure, unspecified; N18.9 - Chronic kidney disease, unspecified SNOMED: 845996057 (2) Ascites due to alcoholic cirrhosis ICD Codes: K70.31 - Alcoholic cirrhosis of liver with ascites SNOMED: 8557586883286438 (3) Jaundice of recent onset ICD Codes: R17 - Unspecified jaundice SNOMED: 34657338 (4) Leukocytosis ICD Codes: D72.829 - Elevated white blood cell count, unspecified SNOMED: 039049951, 366795227 (5) Sepsis ICD Codes: A41.9 - Sepsis, unspecified organism SNOMED: 72688675 (6) Liver cirrhosis, alcoholic ICD Codes: K70.30 - Alcoholic cirrhosis of liver without ascites SNOMED: 110224941, 388822074 Status: unchanged Status Narrative Discussed with Dr. Daly. Assessment/Plan Assessment - Alcoholic liver disease - liver failure - MELD score 27 - leukocytosis - Edema - poor prognosis Recommendation - decrease lactulose dosage - recheck ammonia levels - abx - fu ultrasound guided paracentesis >> r/o SBP - albumin IV x 3 days - start octreotide subq + midodrine Subjective Subjective limited, patient confused Objective Last 24 Hour Vital Signs Date Time Temp Pulse Resp B/P (MAP) Pulse Ox O2 Delivery O2 Flow Rate FiO2 05/26/17 16:08 97.6 100 18 123/72 96 Nasal Cannula 2.0 05/26/17 13:11 123/72 05/26/17 12:00 107 05/26/17 11:59 98.2 99 18 123/72 95 Nasal Cannula 2.0 05/26/17 09:09 121/73 05/26/17 08:00 99 05/26/17 08:00 97.7 96 18 121/73 97 Venturi Mask 15.0 05/26/17 07:38 Venturi Mask 14.0 55 05/26/17 07:38 95 Venturi Mask 14.0 55 05/26/17 07:37 100 18 Venturi Mask 14.0 55 05/26/17 04:15 105 05/26/17 04:00 97.9 101 19 123/72 97 Venturi Mask 15.0 106 05/26/17 00:00 98.3 100 18 122/72 95 Venturi Mask 15.0 94 05/25/17 23:52 102 05/25/17 20:00 98.4 99 18 122/73 93 Venturi Mask 15.0 102 05/25/17 19:37 95 05/25/17 19:30 114/63 Intake and Output 05/26/17 05/27/17 19:00 07:00 Intake Total 397.917 ml Balance 397.917 ml IV Total 397.917 ml # Bowel Movements 2 Laboratory Tests Test 05/25/17 16:35 05/26/17 04:50 05/26/17 09:45 Sodium Level 140 MMOL/L (136-145) Potassium Level 3.6 MMOL/L (3.5-5.1) Chloride Level 107 MMOL/L (98-107) Carbon Dioxide Level 23 MMOL/L (21-32) Anion Gap 10 mmol/L (5-15) Blood Urea Nitrogen 54 mg/dL (7-18) H Creatinine 1.8 MG/DL (0.55-1.30) H Estimat Glomerular Filtration Rate 42.0 mL/min (>60) Glucose Level 107 MG/DL (74-106) H Calcium Level 7.6 MG/DL (8.5-10.1) L Iron Level 17 ug/dL (50-175) L Total Iron Binding Capacity 54 ug/dL (250-450) L Percent Iron Saturation 31 % (15-50) Unsaturated Iron Binding 37 ug/dL (112-346) L Total Bilirubin 13.9 MG/DL (0.2-1.0) H Direct Bilirubin 12.2 MG/DL (0.0-0.3) H Aspartate Amino Transf (AST/SGOT) 120 U/L (15-37) H Alanine Aminotransferase (ALT/SGPT) 75 U/L (12-78) Alkaline Phosphatase 522 U/L (46-116) H Total Protein 4.0 G/DL (6.4-8.2) L Albumin 1.3 G/DL (3.4-5.0) L Globulin 2.7 g/dL Albumin/Globulin Ratio 0.5 (1.0-2.7) L Prostate Specific Antigen 0.2 ng/mL (0.0-4.0) Free Prostate Specific Antigen Pending Percent Free Prostate Specific Ag Pending Prostate Specific Antigen Total Pending White Blood Count 20.6 K/UL (4.8-10.8) H Red Blood Count 2.44 M/UL (4.70-6.10) L Hemoglobin 9.2 G/DL (14.2-18.0) L Hematocrit 28.1 % (42.0-52.0) L Mean Corpuscular Volume 115 FL (80-99) H Mean Corpuscular Hemoglobin 37.6 PG (27.0-31.0) H Mean Corpuscular Hemoglobin Concent 32.7 G/DL (32.0-36.0) Red Cell Distribution Width 16.0 % (11.6-14.8) H Platelet Count 107 K/UL (150-450) L Mean Platelet Volume 6.2 FL (6.5-10.1) L Neutrophils (%) (Auto) % (45.0-75.0) Lymphocytes (%) (Auto) % (20.0-45.0) Monocytes (%) (Auto) % (1.0-10.0) Eosinophils (%) (Auto) % (0.0-3.0) Basophils (%) (Auto) % (0.0-2.0) Differential Total Cells Counted 100 Neutrophils % (Manual) 90 % (45-75) H Lymphocytes % (Manual) 3 % (20-45) L Monocytes % (Manual) 3 % (1-10) Eosinophils % (Manual) 1 % (0-3) Basophils % (Manual) 0 % (0-2) Band Neutrophils 3 % (0-8) Platelet Estimate Decreased L Platelet Morphology Normal Hypochromasia 1+ Anisocytosis 1+ Macrocytosis 1+ Ammonia 25 umol/L (11.2-31.7) Alpha Fetoprotein Pending Prothrombin Time 16.6 SEC (9.30-11.50) H Prothromb Time International Ratio 1.6 (0.9-1.1) H Height (Feet): 6 Height (Inches): 0.00 Weight (Pounds): 222 General Appearance: alert, confused Cardiovascular: normal rate Respiratory/Chest: other - 2LNC Abdominal Exam: soft Danay Grady N.P. May 26, 2017 16:18
--- NOTE | 2017-05-26 16:27 | Infectious Diseases Prog Note ---
Assessment/Plan Problems: (1) HCAP (healthcare-associated pneumonia) Assessment & Plan: with extensive B/L infiltrates , can't rule out pneumonia , continue zosyn , off vancomycin ,pending sputum culture (2) Sepsis Assessment & Plan: with significant leukocytosis , on zosyn , pending blood culture (3) Ascites due to alcoholic cirrhosis Assessment & Plan: with anasarca, needs diuresis, and daily weight monitor, consider paracentesis and fluids to be sent for culture (4) Liver cirrhosis, alcoholic Assessment & Plan: continue supportive care, GI is following (5) QAMAR (acute kidney injury) Assessment & Plan: suspect hepatorenal, monitor urine output, and avoid nephrotoxic medicine (6) Acute respiratory failure Assessment & Plan: due to the above , off BIPAP, on venturi mask , monitor ABG , and CXR, pulmonary is following Subjective Constitutional: Reports: fatigue HEENT: Reports: no symptoms Respiratory: Reports: shortness of breath, dry cough Breasts: Reports: no symptoms Cardiovascular: Reports: no symptoms Gastrointestinal/Abdominal: Reports: diarrhea, bloating Genitourinary: Reports: no symptoms Neurologic: Reports: confusion Psychiatric: Reports: depression Skin: Reports: other - jaundiced Endocrine: Reports: no symptoms Hematologic: Reports: no symptoms Allergies: Coded Allergies: No Known Allergies (Unverified , 04/29/17) Objective Vital Signs Last 24 Hour Vital Signs Date Time Temp Pulse Resp B/P (MAP) Pulse Ox O2 Delivery O2 Flow Rate FiO2 05/26/17 16:08 97.6 100 18 123/72 96 Nasal Cannula 2.0 05/26/17 13:11 123/72 05/26/17 12:00 107 05/26/17 11:59 98.2 99 18 123/72 95 Nasal Cannula 2.0 05/26/17 09:09 121/73 05/26/17 08:00 99 05/26/17 08:00 97.7 96 18 121/73 97 Venturi Mask 15.0 05/26/17 07:38 Venturi Mask 14.0 55 05/26/17 07:38 95 Venturi Mask 14.0 55 05/26/17 07:37 100 18 Venturi Mask 14.0 55 05/26/17 04:15 105 05/26/17 04:00 97.9 101 19 123/72 97 Venturi Mask 15.0 106 05/26/17 00:00 98.3 100 18 122/72 95 Venturi Mask 15.0 94 05/25/17 23:52 102 05/25/17 20:00 98.4 99 18 122/73 93 Venturi Mask 15.0 102 05/25/17 19:37 95 05/25/17 19:30 114/63 Height (Feet): 6 Height (Inches): 0.00 Weight (Pounds): 222 General Appearance: WD/WN, no acute distress HEENT: normocephalic, atraumatic, mucous membranes moist, PERRL, pharynx normal , supple, other - icteric sclera Respiratory/Chest: chest wall non-tender, no respiratory distress, no accessory muscle use, decreased breath sounds, crackles/rales Cardiovascular: normal peripheral pulses, normal rate, regular rhythm, no gallop/murmur, no JVD Abdomen: normal bowel sounds, soft, non tender, no organomegaly, non distended , no mass, no scars Extremities: no cyanosis, no clubbing Skin: no rash, no lesions, no ulcers Neurologic/Psychiatric: alert, responsive, disoriented, other - dellerius Lymphatic: no neck adenopathy, no groin adenopathy Microbiology Date/Time Source Procedure Growth Status 05/24/17 12:30 Blood Blood Culture - Preliminary Resulted 05/24/17 12:30 Blood Blood Culture - Preliminary NO GROWTH AFTER 24 HOURS Resulted Laboratory Tests Test 05/25/17 16:35 05/26/17 04:50 05/26/17 09:45 Sodium Level 140 MMOL/L (136-145) Potassium Level 3.6 MMOL/L (3.5-5.1) Chloride Level 107 MMOL/L (98-107) Carbon Dioxide Level 23 MMOL/L (21-32) Anion Gap 10 mmol/L (5-15) Blood Urea Nitrogen 54 mg/dL (7-18) H Creatinine 1.8 MG/DL (0.55-1.30) H Estimat Glomerular Filtration Rate 42.0 mL/min (>60) Glucose Level 107 MG/DL (74-106) H Calcium Level 7.6 MG/DL (8.5-10.1) L Iron Level 17 ug/dL (50-175) L Total Iron Binding Capacity 54 ug/dL (250-450) L Percent Iron Saturation 31 % (15-50) Unsaturated Iron Binding 37 ug/dL (112-346) L Total Bilirubin 13.9 MG/DL (0.2-1.0) H Direct Bilirubin 12.2 MG/DL (0.0-0.3) H Aspartate Amino Transf (AST/SGOT) 120 U/L (15-37) H Alanine Aminotransferase (ALT/SGPT) 75 U/L (12-78) Alkaline Phosphatase 522 U/L (46-116) H Total Protein 4.0 G/DL (6.4-8.2) L Albumin 1.3 G/DL (3.4-5.0) L Globulin 2.7 g/dL Albumin/Globulin Ratio 0.5 (1.0-2.7) L Prostate Specific Antigen 0.2 ng/mL (0.0-4.0) Free Prostate Specific Antigen Pending Percent Free Prostate Specific Ag Pending Prostate Specific Antigen Total Pending White Blood Count 20.6 K/UL (4.8-10.8) H Red Blood Count 2.44 M/UL (4.70-6.10) L Hemoglobin 9.2 G/DL (14.2-18.0) L Hematocrit 28.1 % (42.0-52.0) L Mean Corpuscular Volume 115 FL (80-99) H Mean Corpuscular Hemoglobin 37.6 PG (27.0-31.0) H Mean Corpuscular Hemoglobin Concent 32.7 G/DL (32.0-36.0) Red Cell Distribution Width 16.0 % (11.6-14.8) H Platelet Count 107 K/UL (150-450) L Mean Platelet Volume 6.2 FL (6.5-10.1) L Neutrophils (%) (Auto) % (45.0-75.0) Lymphocytes (%) (Auto) % (20.0-45.0) Monocytes (%) (Auto) % (1.0-10.0) Eosinophils (%) (Auto) % (0.0-3.0) Basophils (%) (Auto) % (0.0-2.0) Differential Total Cells Counted 100 Neutrophils % (Manual) 90 % (45-75) H Lymphocytes % (Manual) 3 % (20-45) L Monocytes % (Manual) 3 % (1-10) Eosinophils % (Manual) 1 % (0-3) Basophils % (Manual) 0 % (0-2) Band Neutrophils 3 % (0-8) Platelet Estimate Decreased L Platelet Morphology Normal Hypochromasia 1+ Anisocytosis 1+ Macrocytosis 1+ Ammonia 25 umol/L (11.2-31.7) Alpha Fetoprotein Pending Prothrombin Time 16.6 SEC (9.30-11.50) H Prothromb Time International Ratio 1.6 (0.9-1.1) H Current Medications Medications (Trade) Dose Ordered Sig/Leonard Route PRN Reason Start Time Stop Time Status Last Admin Dose Admin Albumin Human 100 ml @ 100 mls/hr ONCE ONCE IVPB 05/27/17 10:00 05/27/17 10:59 UNV Albumin Human 100 ml @ 100 mls/hr ONCE ONCE IVPB 05/28/17 10:00 05/28/17 10:59 UNV Albuterol Sulfate (Proventil MDI) 2 puff BIDPRN PRN INH Shortness of Breath 05/24/17 21:45 06/23/17 21:44 Clotrimazole (Lotrimin) 1 applic EVERY 12 HOURS TOPIC 05/25/17 14:00 06/24/17 13:59 05/26/17 09:10 Dextrose/Sodium Chloride 1,000 ml @ 50 mls/hr Q20H IV 05/24/17 22:00 06/23/17 21:59 05/26/17 14:00 Famotidine (Pepcid I.v.) 20 mg Q12HR IVP 05/25/17 21:00 06/24/17 20:59 05/26/17 09:09 Lactulose (Cephulac) 10 gm DAILY ORAL 05/27/17 09:00 06/26/17 08:59 UNV Metoclopramide HCl (Reglan) 10 mg Q6H PRN IVP Nausea & Vomiting 05/24/17 21:30 06/23/17 21:29 Midodrine (Pro-Amatine) 10 mg THREE TIMES A DAY ORAL 05/25/17 09:00 06/24/17 08:59 05/26/17 13:11 Octreotide Acetate (SandoSTATIN) 100 mcg Q8HR SUBQ 05/26/17 22:00 06/25/17 21:59 UNV Pentoxifylline (TRENtal) 400 mg THREE TIMES A DAY ORAL 05/25/17 19:00 06/24/17 18:59 05/26/17 13:11 Piperacillin/ Tazobactam/ Dextrose 50 ml @ 12.5 mls/hr Q8HR@0400,1200,2000 IVPB 05/25/17 04:00 06/01/17 03:59 05/26/17 12:06 Tamsulosin HCl (Flomax) 0.4 mg BEDTIME ORAL 05/25/17 22:00 06/24/17 21:59 05/25/17 22:22 Thiamine HCl (Vitamin B1) 100 mg DAILY ORAL 05/25/17 09:00 06/24/17 08:59 05/26/17 09:09 Vitamin D (Vitamin D) 1,000 intlu DAILY ORAL 05/25/17 09:00 06/24/17 08:59 05/26/17 09:09 Janae Lopez M.D. May 26, 2017 16:27
--- NOTE | 2017-05-26 16:31 | Diagnostic Imaging Report ---
Indications: Ascites Procedure: Informed consent obtained. Ultrasound used to localize optimal puncture site. Sterile prepping and draping over the optimum site. Local anesthesia with 1% lidocaine. Under real-time ultrasound guidance, puncture of the peritoneal space performed using paracentesis needle. Digital image was saved and archived. Stylet removed. Catheter placed to vacuum bottle suction. Fluid was aspirated. Patient tolerated procedure well, without immediate complication. Findings: Followup sonography demonstrates complete resolution of peritoneal fluid Impression: Successful ultrasound-guided paracentesis, yielding 4.1 liters of fluid
[2017-05-26 18:33] LABS: APPEARANCE, BODY FLUID HAZY
[2017-05-26 18:34] LABS: BD FL SOURCE PARACENTESIS; BD FL VOLUME 24 mL; BODY FLUID NUCLEATED CELLS 7 /CUMM; BODY FLUID RBC 20 /CUMM
[2017-05-26 18:35] LABS: MONONUCLEAR WBC 27 %; POLYMORPHONUCLEAR WBC 24 %
[2017-05-26 19:55] VITALS: BP 123/66
--- NOTE | 2017-05-26 20:23 | Cardiology Report ---
APPROVED REPORT EKG Measurement Heart [id number] Sinus tachycardia Low voltage QRS Borderline ECG
[2017-05-26] MEDS: Tamsulosin 0.4mg cap ORAL SCH (22:04)
[2017-05-26] MEDS: SandoSTATIN 100mcg/ml amp SUBQ SCH (22:04)
--- NOTE | 2017-05-26 22:27 | General Progress Note ---
Assessment/Plan Assessment/Plan IMPRESSION/PLAN 1. Leukocytosis 2/2 sepsis. ID following 2. Thrombocytopenia, multifactorial. The patient has a history of liver disease. Platelet goal is above 20K 3. Anemia of chronic disease. Watch counts, transfuse if hgb below 7. 4. Anemia of kidney disease. 5. History of alcohol abuse. 6. Alcoholic liver cirrhosis. 7. Bilirubinemia. Subjective ROS Limited/Unobtainable: Yes Allergies: Coded Allergies: No Known Allergies (Unverified , 04/29/17) Subjective confused Objective Last 24 Hour Vital Signs Date Time Temp Pulse Resp B/P (MAP) Pulse Ox O2 Delivery O2 Flow Rate FiO2 05/26/17 20:00 106 05/26/17 19:55 97.2 106 16 123/66 100 Nasal Cannula 3.0 106 05/26/17 19:00 94 Nasal Cannula 2.0 28 05/26/17 19:00 Nasal Cannula 2.0 28 05/26/17 19:00 108 18 Nasal Cannula 2.0 28 05/26/17 17:59 123/75 05/26/17 16:08 97.6 100 18 123/72 96 Nasal Cannula 2.0 05/26/17 16:00 100 05/26/17 13:11 123/72 05/26/17 12:00 107 05/26/17 11:59 98.2 99 18 123/72 95 Nasal Cannula 2.0 05/26/17 09:09 121/73 05/26/17 08:00 99 05/26/17 08:00 97.7 96 18 121/73 97 Venturi Mask 15.0 05/26/17 07:38 Venturi Mask 14.0 55 05/26/17 07:38 95 Venturi Mask 14.0 55 05/26/17 07:37 100 18 Venturi Mask 14.0 55 05/26/17 04:15 105 05/26/17 04:00 97.9 101 19 123/72 97 Venturi Mask 15.0 106 05/26/17 00:00 98.3 100 18 122/72 95 Venturi Mask 15.0 94 05/25/17 23:52 102 Intake and Output 05/26/17 05/27/17 19:00 07:00 Intake Total 864.167 ml Output Total 4425 ml Balance -3560.833 ml Intake Oral 240 ml IV Total 624.167 ml Output Urine Total 325 ml Other 4100 ml # Bowel Movements 3 Laboratory Tests 05/26/17 04:50: White Blood Count 20.6H, Red Blood Count 2.44L, Hemoglobin 9.2L, Hematocrit 28.1L, Mean Corpuscular Volume 115H, Mean Corpuscular Hemoglobin 37.6H, Mean Corpuscular Hemoglobin Concent 32.7, Red Cell Distribution Width 16.0H, Platelet Count 107L, Mean Platelet Volume 6.2L, Neutrophils (%) (Auto) , Lymphocytes (%) (Auto) , Monocytes (%) (Auto) , Eosinophils (%) (Auto) , Basophils (%) (Auto) , Differential Total Cells Counted 100, Neutrophils % ( Manual) 90H, Lymphocytes % (Manual) 3L, Monocytes % (Manual) 3, Eosinophils % ( Manual) 1, Basophils % (Manual) 0, Band Neutrophils 3, Platelet Estimate DecreasedL, Platelet Morphology Normal, Hypochromasia 1+, Anisocytosis 1+, Macrocytosis 1+, Ammonia 25, Alpha Fetoprotein [Pending] 05/26/17 09:45: Prothrombin Time 16.6H, Prothromb Time International Ratio 1.6H 05/26/17 15:47: Body Fluid Source Paracentesis, Body Fluid Volume 24, Body Fluid Appearance Hazy , Body Fluid RBC 20, Body Fluid Total Nucleated Cells 7, Body Fluid Polynuclear WBCs (%) 24, Body Fluid Mononuclear WBCs (%) 27, Body Fluid Mesothelial Cells (% ) 49 Height (Feet): 6 Height (Inches): 0.00 Weight (Pounds): 222 General Appearance: no apparent distress EENT: normal ENT inspection Neck: normal alignment Skin: normal pigmentation Joshua Hurley May 26, 2017 22:27
[2017-05-27] VITALS: BP 122/71
[2017-05-27] MEDS: chlordiazePOXIDE 25mg Cap ORAL PRN ×2 (01:56→09:53)
[2017-05-27 04:00] VITALS: BP 129/75
[2017-05-27] MEDS: Zosyn 3.375gm/50ml Premix 50 ML IVPB SCH ×3 (04:20→20:30)
[2017-05-27 05:29] LABS: MEAN CORPUSCULAR HGB CONC 32.6 G/DL (32.0-36.0); MEAN CORPUSCULAR VOLUME 114 FL (80-99); MEAN PLATELET VOLUME 7.3 FL (6.5-10.1); PLATELET COUNT 94 K/UL (150-450); RED BLOOD COUNT 2.13 M/UL (4.70-6.10); RED CELL DISTRIBUTION WIDTH 15.9 % (11.6-14.8); WHITE BLOOD COUNT 17.9 K/UL (4.8-10.8)
[2017-05-27 05:58] LABS: INR 1.6 (0.9-1.1)
[2017-05-27] MEDS: SandoSTATIN 100mcg/ml amp SUBQ SCH ×2 (06:07→13:05)
[2017-05-27 06:11] LABS: ALANINE AMINOTRANSFERASE 57 U/L (12-78); ALBUMIN/GLOBULIN RATIO 0.5 (1.0-2.7); ANION GAP 15 mmol/L (5-15); ASPARTATE AMINO TRANSFERASE 87 U/L (15-37); CALCIUM 7.4 MG/DL (8.5-10.1); CARBON DIOXIDE 20 MMOL/L (21-32); CHLORIDE 110 MMOL/L (98-107); CREATININE 1.8 MG/DL (0.55-1.30); POTASSIUM 2.9 MMOL/L (3.5-5.1); SODIUM 144 MMOL/L (136-145); TOTAL PROTEIN 4.1 G/DL (6.4-8.2)
[2017-05-27 08:06] VITALS: BP 115/72
[2017-05-27 08:22] LABS: BAND NEUTROPHILS % (MANUAL) 1 % (0-8); BASOPHILS % (MANUAL) 0 % (0-2); EOSINOPHILS % (MANUAL) 3 % (0-3); LYMPHOCYTES % (MANUAL) 2 % (20-45); NEUTROPHILS % (MANUAL) 89 % (45-75); PLATELET ESTIMATE DECREASED; PLATELET MORPHOLOGY NORMAL; TOTAL CELLS COUNTED 100
[2017-05-27 08:23] LABS: ANISOCYTOSIS 1+; MACROCYTES 1+
[2017-05-27 08:24] LABS: HYPOCHROMASIA 1+
[2017-05-27] MEDS: Vitamin D 1000 IU Tab ORAL SCH (08:39)
[2017-05-27] MEDS: Midodrine 10mg tab ORAL SCH ×3 (08:40→17:28)
[2017-05-27] MEDS: Thiamine 100mg tab ORAL SCH (08:40)
[2017-05-27] MEDS ORDERED: Lactulose 20gm/30ml UDC ORAL SCH (09:00)
[2017-05-27] MEDS ORDERED: NS 275ml ONE (09:30)
[2017-05-27] MEDS ORDERED: D5NS 1000ml IV ONE (09:30)
[2017-05-27] MEDS ORDERED: Tubing IV Secondary IV ONE (09:30)
[2017-05-27] MEDS ORDERED: Potassium Chloride 40 MEQ in Sodium Chloride 500ML 550 ML IV ONE (10:30)
[2017-05-27] MEDS: D5NS 1,000 ML IV SCH (11:20)
[2017-05-27 11:56] LABS: PSA FREE 0.06 ng/mL; PSA TOTAL 0.2 ng/mL (0.0-4.0)
[2017-05-27 12:00] VITALS: BP 117/68
--- NOTE | 2017-05-27 12:51 | GI Progress Note ---
Assessment/Plan Problems: (1) Renal failure (ARF), acute on chronic ICD Codes: N17.9 - Acute kidney failure, unspecified; N18.9 - Chronic kidney disease, unspecified SNOMED: 756580947 (2) Ascites due to alcoholic cirrhosis ICD Codes: K70.31 - Alcoholic cirrhosis of liver with ascites SNOMED: 8109242142196297 (3) Jaundice of recent onset ICD Codes: R17 - Unspecified jaundice SNOMED: 74529190 (4) Leukocytosis ICD Codes: D72.829 - Elevated white blood cell count, unspecified SNOMED: 688135724, 852577081 (5) Sepsis ICD Codes: A41.9 - Sepsis, unspecified organism SNOMED: 32964146 (6) Liver cirrhosis, alcoholic ICD Codes: K70.30 - Alcoholic cirrhosis of liver without ascites SNOMED: 292931875, 287378073 Status: unchanged Status Narrative Discussed with Dr. Daly. Assessment/Plan Assessment - Alcoholic liver disease - liver failure - MELD score 27 - leukocytosis - Edema - poor prognosis OB positive Recommendation prednisone daily monitor H&H, prn transfusion dc lactulose abx fu ultrasound guided paracentesis >> r/o SBP albumin IV x 3 days octreotide subq + midodrine fu labs Subjective Subjective limited, patient confused Objective Last 24 Hour Vital Signs Date Time Temp Pulse Resp B/P (MAP) Pulse Ox O2 Delivery O2 Flow Rate FiO2 05/27/17 12:01 96 05/27/17 12:00 97.2 99 19 117/68 98 Nasal Cannula 2.0 05/27/17 08:39 115/72 05/27/17 08:06 97.3 96 22 115/72 94 Nasal Cannula 2.0 05/27/17 07:05 97 18 Nasal Cannula 2.0 28 05/27/17 07:05 97 Nasal Cannula 2.0 28 05/27/17 07:05 Nasal Cannula 2.0 28 05/27/17 04:21 102 05/27/17 04:00 97.7 103 24 129/75 94 Nasal Cannula 2.0 05/27/17 00:00 97.5 113 17 122/71 100 Nasal Cannula 3.0 113 05/27/17 00:00 109 05/26/17 20:00 106 05/26/17 19:55 97.2 106 16 123/66 100 Nasal Cannula 3.0 106 05/26/17 19:00 94 Nasal Cannula 2.0 28 05/26/17 19:00 Nasal Cannula 2.0 28 05/26/17 19:00 108 18 Nasal Cannula 2.0 28 05/26/17 17:59 123/75 05/26/17 16:08 97.6 100 18 123/72 96 Nasal Cannula 2.0 05/26/17 16:00 100 05/26/17 13:11 123/72 Intake and Output 05/27/17 05/28/17 19:00 07:00 Intake Total 565.0 ml Balance 565.0 ml Intake Oral 240 ml IV Total 325.0 ml # Bowel Movements 4 Laboratory Tests Test 05/26/17 13:10 05/26/17 15:47 05/27/17 04:40 Stool Occult Blood Positive (NEGATIVE) Body Fluid Source Paracentesis Body Fluid Volume 24 mL Body Fluid Appearance Hazy Body Fluid RBC 20 /CUMM Body Fluid Total Nucleated Cells 7 /CUMM Body Fluid Polynuclear WBCs (%) 24 % Body Fluid Mononuclear WBCs (%) 27 % Body Fluid Mesothelial Cells (%) 49 % White Blood Count 17.9 K/UL (4.8-10.8) H Red Blood Count 2.13 M/UL (4.70-6.10) L Hemoglobin 7.9 G/DL (14.2-18.0) L Hematocrit 24.2 % (42.0-52.0) L Mean Corpuscular Volume 114 FL (80-99) H Mean Corpuscular Hemoglobin 37.0 PG (27.0-31.0) H Mean Corpuscular Hemoglobin Concent 32.6 G/DL (32.0-36.0) Red Cell Distribution Width 15.9 % (11.6-14.8) H Platelet Count 94 K/UL (150-450) L Mean Platelet Volume 7.3 FL (6.5-10.1) Neutrophils (%) (Auto) % (45.0-75.0) Lymphocytes (%) (Auto) % (20.0-45.0) Monocytes (%) (Auto) % (1.0-10.0) Eosinophils (%) (Auto) % (0.0-3.0) Basophils (%) (Auto) % (0.0-2.0) Differential Total Cells Counted 100 Neutrophils % (Manual) 89 % (45-75) H Lymphocytes % (Manual) 2 % (20-45) L Monocytes % (Manual) 5 % (1-10) Eosinophils % (Manual) 3 % (0-3) Basophils % (Manual) 0 % (0-2) Band Neutrophils 1 % (0-8) Platelet Estimate Decreased L Platelet Morphology Normal Hypochromasia 1+ Anisocytosis 1+ Macrocytosis 1+ Prothrombin Time 17.0 SEC (9.30-11.50) H Prothromb Time International Ratio 1.6 (0.9-1.1) H Sodium Level 144 MMOL/L (136-145) Potassium Level 2.9 MMOL/L (3.5-5.1) L Chloride Level 110 MMOL/L (98-107) H Carbon Dioxide Level 20 MMOL/L (21-32) L Anion Gap 15 mmol/L (5-15) Blood Urea Nitrogen 50 mg/dL (7-18) H Creatinine 1.8 MG/DL (0.55-1.30) H Estimat Glomerular Filtration Rate 42.0 mL/min (>60) Glucose Level 125 MG/DL (74-106) H Calcium Level 7.4 MG/DL (8.5-10.1) L Total Bilirubin 14.7 MG/DL (0.2-1.0) H Direct Bilirubin 12.0 MG/DL (0.0-0.3) H Aspartate Amino Transf (AST/SGOT) 87 U/L (15-37) H Alanine Aminotransferase (ALT/SGPT) 57 U/L (12-78) Alkaline Phosphatase 424 U/L (46-116) H Ammonia 57 umol/L (11.2-31.7) H Total Protein 4.1 G/DL (6.4-8.2) L Albumin 1.4 G/DL (3.4-5.0) L Globulin 2.7 g/dL Albumin/Globulin Ratio 0.5 (1.0-2.7) L Microbiology Date/Time Source Procedure Growth Status 05/26/17 16:47 Abdominal Fluid Gram Stain - Final Resulted 05/26/17 16:47 Abdominal Fluid Body Fluid Culture - Preliminary NO GROWTH AFTER 24 HOURS Resulted Height (Feet): 6 Height (Inches): 0.00 Weight (Pounds): 222 General Appearance: no apparent distress, confused Cardiovascular: normal rate Respiratory/Chest: normal breath sounds, no respiratory distress, other - 2LNC Abdominal Exam: normal bowel sounds, non tender, soft, ascites Extremities: non-tender Danay Grady N.P. May 27, 2017 12:51
[2017-05-27] MEDS ORDERED: LORazepam Inj 2mg/ml 1ml IV PRN (13:15)
[2017-05-27] MEDS ORDERED: LORazepam 1mg tab ORAL PRN (13:30)
--- NOTE | 2017-05-27 13:34 | Infectious Diseases Prog Note ---
Assessment/Plan Problems: (1) HCAP (healthcare-associated pneumonia) Assessment & Plan: with extensive B/L infiltrates , can't rule out pneumonia , continue zosyn and stop vancomycin to avoid nephrotoxicity ,pending sputum culture (2) Sepsis Assessment & Plan: with significant leukocytosis , on vancomycin and zosyn , pending blood culture (3) Ascites due to alcoholic cirrhosis Assessment & Plan: with anasarca, needs diuresis, and daily weight monitor, consider paracentesis and fluids to be sent for culture (4) Liver cirrhosis, alcoholic Assessment & Plan: continue supportive care, GI is following (5) QAMAR (acute kidney injury) Assessment & Plan: suspect hepatorenal, monitor urine output, and avoid nephrotoxic medicine (6) Acute respiratory failure Assessment & Plan: due to the above , off BIPAP, on venturi mask , monitor ABG , and CXR, pulmonary is following Subjective Allergies: Coded Allergies: No Known Allergies (Unverified , 04/29/17) Objective Vital Signs Last 24 Hour Vital Signs Date Time Temp Pulse Resp B/P (MAP) Pulse Ox O2 Delivery O2 Flow Rate FiO2 05/27/17 12:56 117/68 05/27/17 12:01 96 05/27/17 12:00 97.2 99 19 117/68 98 Nasal Cannula 2.0 05/27/17 08:39 115/72 05/27/17 08:06 97.3 96 22 115/72 94 Nasal Cannula 2.0 05/27/17 07:05 97 18 Nasal Cannula 2.0 28 05/27/17 07:05 97 Nasal Cannula 2.0 28 05/27/17 07:05 Nasal Cannula 2.0 28 05/27/17 04:21 102 05/27/17 04:00 97.7 103 24 129/75 94 Nasal Cannula 2.0 05/27/17 00:00 97.5 113 17 122/71 100 Nasal Cannula 3.0 113 05/27/17 00:00 109 05/26/17 20:00 106 05/26/17 19:55 97.2 106 16 123/66 100 Nasal Cannula 3.0 106 05/26/17 19:00 94 Nasal Cannula 2.0 28 05/26/17 19:00 Nasal Cannula 2.0 28 05/26/17 19:00 108 18 Nasal Cannula 2.0 28 05/26/17 17:59 123/75 05/26/17 16:08 97.6 100 18 123/72 96 Nasal Cannula 2.0 05/26/17 16:00 100 Height (Feet): 6 Height (Inches): 0.00 Weight (Pounds): 222 Microbiology Date/Time Source Procedure Growth Status 05/25/17 01:30 Nasal Nares MRSA Culture - Final NO METHICILLIN RESISTANT STAPH AUREUS... Complete 05/26/17 16:47 Abdominal Fluid Gram Stain - Final Resulted 05/26/17 16:47 Abdominal Fluid Body Fluid Culture - Preliminary NO GROWTH AFTER 24 HOURS Resulted 05/25/17 01:30 Rectum VRE Culture - Final Enterococcus Faecium - Vre Complete Laboratory Tests Test 05/26/17 15:47 05/27/17 04:40 Body Fluid Source Paracentesis Body Fluid Volume 24 mL Body Fluid Appearance Hazy Body Fluid RBC 20 /CUMM Body Fluid Total Nucleated Cells 7 /CUMM Body Fluid Polynuclear WBCs (%) 24 % Body Fluid Mononuclear WBCs (%) 27 % Body Fluid Mesothelial Cells (%) 49 % White Blood Count 17.9 K/UL (4.8-10.8) H Red Blood Count 2.13 M/UL (4.70-6.10) L Hemoglobin 7.9 G/DL (14.2-18.0) L Hematocrit 24.2 % (42.0-52.0) L Mean Corpuscular Volume 114 FL (80-99) H Mean Corpuscular Hemoglobin 37.0 PG (27.0-31.0) H Mean Corpuscular Hemoglobin Concent 32.6 G/DL (32.0-36.0) Red Cell Distribution Width 15.9 % (11.6-14.8) H Platelet Count 94 K/UL (150-450) L Mean Platelet Volume 7.3 FL (6.5-10.1) Neutrophils (%) (Auto) % (45.0-75.0) Lymphocytes (%) (Auto) % (20.0-45.0) Monocytes (%) (Auto) % (1.0-10.0) Eosinophils (%) (Auto) % (0.0-3.0) Basophils (%) (Auto) % (0.0-2.0) Differential Total Cells Counted 100 Neutrophils % (Manual) 89 % (45-75) H Lymphocytes % (Manual) 2 % (20-45) L Monocytes % (Manual) 5 % (1-10) Eosinophils % (Manual) 3 % (0-3) Basophils % (Manual) 0 % (0-2) Band Neutrophils 1 % (0-8) Platelet Estimate Decreased L Platelet Morphology Normal Hypochromasia 1+ Anisocytosis 1+ Macrocytosis 1+ Prothrombin Time 17.0 SEC (9.30-11.50) H Prothromb Time International Ratio 1.6 (0.9-1.1) H Sodium Level 144 MMOL/L (136-145) Potassium Level 2.9 MMOL/L (3.5-5.1) L Chloride Level 110 MMOL/L (98-107) H Carbon Dioxide Level 20 MMOL/L (21-32) L Anion Gap 15 mmol/L (5-15) Blood Urea Nitrogen 50 mg/dL (7-18) H Creatinine 1.8 MG/DL (0.55-1.30) H Estimat Glomerular Filtration Rate 42.0 mL/min (>60) Glucose Level 125 MG/DL (74-106) H Calcium Level 7.4 MG/DL (8.5-10.1) L Total Bilirubin 14.7 MG/DL (0.2-1.0) H Direct Bilirubin 12.0 MG/DL (0.0-0.3) H Aspartate Amino Transf (AST/SGOT) 87 U/L (15-37) H Alanine Aminotransferase (ALT/SGPT) 57 U/L (12-78) Alkaline Phosphatase 424 U/L (46-116) H Ammonia 57 umol/L (11.2-31.7) H Total Protein 4.1 G/DL (6.4-8.2) L Albumin 1.4 G/DL (3.4-5.0) L Globulin 2.7 g/dL Albumin/Globulin Ratio 0.5 (1.0-2.7) L Current Medications Medications (Trade) Dose Ordered Sig/Leonard Route PRN Reason Start Time Stop Time Status Last Admin Dose Admin Albumin Human 100 ml @ 100 mls/hr ONCE ONCE IVPB 05/28/17 10:00 05/28/17 10:59 Albuterol Sulfate (Proventil MDI) 2 puff BIDPRN PRN INH Shortness of Breath 05/24/17 21:45 06/23/17 21:44 Clotrimazole (Lotrimin) 1 applic EVERY 12 HOURS TOPIC 05/25/17 14:00 06/24/17 13:59 05/27/17 08:40 Dextrose/Sodium Chloride 1,000 ml @ 50 mls/hr Q20H IV 05/24/17 22:00 06/23/17 21:59 05/27/17 11:20 Famotidine (Pepcid I.v.) 20 mg Q12HR IVP 05/25/17 21:00 06/24/17 20:59 05/27/17 08:40 Lactulose (Cephulac) 10 gm DAILY ORAL 05/27/17 09:00 06/26/17 08:59 05/27/17 08:39 Lorazepam (Ativan) 2 mg Q6H PRN ORAL Agitation 05/27/17 13:30 06/03/17 13:29 Metoclopramide HCl (Reglan) 10 mg Q6H PRN IVP Nausea & Vomiting 05/24/17 21:30 06/23/17 21:29 Midodrine (Pro-Amatine) 10 mg THREE TIMES A DAY ORAL 05/25/17 09:00 06/24/17 08:59 05/27/17 12:56 Mirtazapine (Remeron) 15 mg BEDTIME ORAL 05/27/17 21:00 06/26/17 20:59 Octreotide Acetate (SandoSTATIN) 100 mcg Q8HR SUBQ 05/26/17 22:00 06/25/17 21:59 05/27/17 13:05 Pentoxifylline (TRENtal) 400 mg THREE TIMES A DAY ORAL 05/25/17 19:00 06/24/17 18:59 05/27/17 12:56 Piperacillin/ Tazobactam/ Dextrose 50 ml @ 12.5 mls/hr Q8HR@0400,1200,2000 IVPB 05/25/17 04:00 06/01/17 03:59 05/27/17 11:20 Potassium Chloride 40 meq/ Sodium Chloride 570 ml @ 142.5 mls/ hr ONCE ONCE IV 05/27/17 10:30 05/27/17 14:29 05/27/17 11:21 Tamsulosin HCl (Flomax) 0.4 mg BEDTIME ORAL 05/25/17 22:00 06/24/17 21:59 05/26/17 22:04 Thiamine HCl (Vitamin B1) 100 mg DAILY ORAL 05/25/17 09:00 06/24/17 08:59 05/27/17 08:40 Vitamin D (Vitamin D) 1,000 intlu DAILY ORAL 05/25/17 09:00 06/24/17 08:59 05/27/17 08:39 Janae Lopez M.D. May 27, 2017 13:34
--- NOTE | 2017-05-27 14:04 | Pulmonology Progress Note ---
Assessment/Plan Assessment/Plan ASSESSMENT: Respiratory distress, improved possible pneumonia volume overload decompensated liver failure cirrhosis ascites altered mental status. PLAN: cough after eating; needs swallow eval nebulizer treatments O2 maintain to sats greater than 92%. Abx per ID note CXR with atelectasis/infiltrates aspiration precuations Subjective Constitutional: Reports: other - confused, Denies: fever Respiratory: Reports: dry cough Allergies: Coded Allergies: No Known Allergies (Unverified , 04/29/17) Objective Last 24 Hour Vital Signs Date Time Temp Pulse Resp B/P (MAP) Pulse Ox O2 Delivery O2 Flow Rate FiO2 05/27/17 12:56 117/68 05/27/17 12:01 96 05/27/17 12:00 97.2 99 19 117/68 98 Nasal Cannula 2.0 05/27/17 08:39 115/72 05/27/17 08:06 97.3 96 22 115/72 94 Nasal Cannula 2.0 05/27/17 07:05 97 18 Nasal Cannula 2.0 28 05/27/17 07:05 97 Nasal Cannula 2.0 28 05/27/17 07:05 Nasal Cannula 2.0 28 05/27/17 04:21 102 05/27/17 04:00 97.7 103 24 129/75 94 Nasal Cannula 2.0 05/27/17 00:00 97.5 113 17 122/71 100 Nasal Cannula 3.0 113 05/27/17 00:00 109 05/26/17 20:00 106 05/26/17 19:55 97.2 106 16 123/66 100 Nasal Cannula 3.0 106 05/26/17 19:00 94 Nasal Cannula 2.0 28 05/26/17 19:00 Nasal Cannula 2.0 28 05/26/17 19:00 108 18 Nasal Cannula 2.0 28 05/26/17 17:59 123/75 05/26/17 16:08 97.6 100 18 123/72 96 Nasal Cannula 2.0 05/26/17 16:00 100 Intake and Output 05/27/17 05/28/17 19:00 07:00 Intake Total 770.0 ml Balance 770.0 ml Intake Oral 240 ml IV Total 530.0 ml # Bowel Movements 4 Objective jaundice and scleral icterus General Appearance: no acute distress Respiratory/Chest: lungs clear, decreased breath sounds Cardiovascular: normal rate Microbiology Date/Time Source Procedure Growth Status 05/25/17 01:30 Nasal Nares MRSA Culture - Final NO METHICILLIN RESISTANT STAPH AUREUS... Complete 05/26/17 16:47 Abdominal Fluid Gram Stain - Final Resulted 05/26/17 16:47 Abdominal Fluid Body Fluid Culture - Preliminary NO GROWTH AFTER 24 HOURS Resulted 05/25/17 01:30 Rectum VRE Culture - Final Enterococcus Faecium - Vre Complete Laboratory Tests 05/26/17 15:47: Body Fluid Source Paracentesis, Body Fluid Volume 24, Body Fluid Appearance Hazy , Body Fluid RBC 20, Body Fluid Total Nucleated Cells 7, Body Fluid Polynuclear WBCs (%) 24, Body Fluid Mononuclear WBCs (%) 27, Body Fluid Mesothelial Cells (% ) 49 05/27/17 04:40: White Blood Count 17.9H, Red Blood Count 2.13L, Hemoglobin 7.9L, Hematocrit 24.2L, Mean Corpuscular Volume 114H, Mean Corpuscular Hemoglobin 37.0H, Mean Corpuscular Hemoglobin Concent 32.6, Red Cell Distribution Width 15.9H, Platelet Count 94L, Mean Platelet Volume 7.3, Neutrophils (%) (Auto) , Lymphocytes (%) (Auto) , Monocytes (%) (Auto) , Eosinophils (%) (Auto) , Basophils (%) (Auto) , Differential Total Cells Counted 100, Neutrophils % ( Manual) 89H, Lymphocytes % (Manual) 2L, Monocytes % (Manual) 5, Eosinophils % ( Manual) 3, Basophils % (Manual) 0, Band Neutrophils 1, Platelet Estimate DecreasedL, Platelet Morphology Normal, Hypochromasia 1+, Anisocytosis 1+, Macrocytosis 1+, Prothrombin Time 17.0H, Prothromb Time International Ratio 1.6H , Sodium Level 144, Potassium Level 2.9L, Chloride Level 110H, Carbon Dioxide Level 20L, Anion Gap 15, Blood Urea Nitrogen 50H, Creatinine 1.8H, Estimat Glomerular Filtration Rate 42.0, Glucose Level 125H, Calcium Level 7.4L, Total Bilirubin 14.7H, Direct Bilirubin 12.0H, Aspartate Amino Transf (AST/SGOT) 87H, Alanine Aminotransferase (ALT/SGPT) 57, Alkaline Phosphatase 424H, Ammonia 57H, Total Protein 4.1L, Albumin 1.4L, Globulin 2.7, Albumin/Globulin Ratio 0.5L Current Medications Medications (Trade) Dose Ordered Sig/Leonard Route PRN Reason Start Time Stop Time Status Last Admin Dose Admin Albumin Human 100 ml @ 100 mls/hr ONCE ONCE IVPB 05/28/17 10:00 05/28/17 10:59 Albuterol Sulfate (Proventil MDI) 2 puff BIDPRN PRN INH Shortness of Breath 05/24/17 21:45 06/23/17 21:44 Clotrimazole (Lotrimin) 1 applic EVERY 12 HOURS TOPIC 05/25/17 14:00 06/24/17 13:59 05/27/17 08:40 Dextrose/Sodium Chloride 1,000 ml @ 50 mls/hr Q20H IV 05/24/17 22:00 06/23/17 21:59 05/27/17 11:20 Famotidine (Pepcid I.v.) 20 mg Q12HR IVP 05/25/17 21:00 06/24/17 20:59 05/27/17 08:40 Lactulose (Cephulac) 10 gm DAILY ORAL 05/27/17 09:00 06/26/17 08:59 05/27/17 08:39 Lorazepam (Ativan) 2 mg Q6H PRN ORAL Agitation 05/27/17 13:30 06/03/17 13:29 Metoclopramide HCl (Reglan) 10 mg Q6H PRN IVP Nausea & Vomiting 05/24/17 21:30 06/23/17 21:29 Midodrine (Pro-Amatine) 10 mg THREE TIMES A DAY ORAL 05/25/17 09:00 06/24/17 08:59 05/27/17 12:56 Mirtazapine (Remeron) 15 mg BEDTIME ORAL 05/27/17 21:00 06/26/17 20:59 Octreotide Acetate (SandoSTATIN) 100 mcg Q8HR SUBQ 05/26/17 22:00 06/25/17 21:59 05/27/17 13:05 Pentoxifylline (TRENtal) 400 mg THREE TIMES A DAY ORAL 05/25/17 19:00 06/24/17 18:59 05/27/17 12:56 Piperacillin/ Tazobactam/ Dextrose 50 ml @ 12.5 mls/hr Q8HR@0400,1200,2000 IVPB 05/25/17 04:00 06/01/17 03:59 05/27/17 11:20 Potassium Chloride 40 meq/ Sodium Chloride 570 ml @ 142.5 mls/ hr ONCE ONCE IV 05/27/17 10:30 05/27/17 14:29 05/27/17 11:21 Tamsulosin HCl (Flomax) 0.4 mg BEDTIME ORAL 05/25/17 22:00 06/24/17 21:59 05/26/17 22:04 Thiamine HCl (Vitamin B1) 100 mg DAILY ORAL 05/25/17 09:00 06/24/17 08:59 05/27/17 08:40 Vitamin D (Vitamin D) 1,000 intlu DAILY ORAL 05/25/17 09:00 06/24/17 08:59 05/27/17 08:39 JAMES NAVARRO May 27, 2017 14:04
--- NOTE | 2017-05-27 14:23 | Nephrology Progress Note ---
Assessment/Plan Problem List: (1) Liver cirrhosis, alcoholic (2) Ascites due to alcoholic cirrhosis (3) Renal failure (ARF), acute on chronic Assessment Renal failure on admit , likely hepatorenal- Cr 1.8 pneumonia, leukocytosis h/o low Na due to anasarca High K , Kayexelate given Jaundice Anemia low alb Plan Plan: K supplement Antibiotics- avoid nephrotoxics- monitor renal parameters optimize pulmonary and renal and hepatic status as possible. Subjective ROS Limited/Unobtainable: No Constitutional: Reports: malaise Objective Objective Last 24 Hour Vital Signs Date Time Temp Pulse Resp B/P (MAP) Pulse Ox O2 Delivery O2 Flow Rate FiO2 05/27/17 12:56 117/68 05/27/17 12:01 96 05/27/17 12:00 97.2 99 19 117/68 98 Nasal Cannula 2.0 05/27/17 08:39 115/72 05/27/17 08:06 97.3 96 22 115/72 94 Nasal Cannula 2.0 05/27/17 07:05 97 18 Nasal Cannula 2.0 28 05/27/17 07:05 97 Nasal Cannula 2.0 28 05/27/17 07:05 Nasal Cannula 2.0 28 05/27/17 04:21 102 05/27/17 04:00 97.7 103 24 129/75 94 Nasal Cannula 2.0 05/27/17 00:00 97.5 113 17 122/71 100 Nasal Cannula 3.0 113 05/27/17 00:00 109 05/26/17 20:00 106 05/26/17 19:55 97.2 106 16 123/66 100 Nasal Cannula 3.0 106 05/26/17 19:00 94 Nasal Cannula 2.0 28 05/26/17 19:00 Nasal Cannula 2.0 28 05/26/17 19:00 108 18 Nasal Cannula 2.0 28 05/26/17 17:59 123/75 05/26/17 16:08 97.6 100 18 123/72 96 Nasal Cannula 2.0 05/26/17 16:00 100 Intake and Output 05/27/17 05/28/17 19:00 07:00 Intake Total 770.0 ml Balance 770.0 ml Intake Oral 240 ml IV Total 530.0 ml # Bowel Movements 4 Laboratory Tests 05/26/17 15:47: Body Fluid Source Paracentesis, Body Fluid Volume 24, Body Fluid Appearance Hazy , Body Fluid RBC 20, Body Fluid Total Nucleated Cells 7, Body Fluid Polynuclear WBCs (%) 24, Body Fluid Mononuclear WBCs (%) 27, Body Fluid Mesothelial Cells (% ) 49 05/27/17 04:40: White Blood Count 17.9H, Red Blood Count 2.13L, Hemoglobin 7.9L, Hematocrit 24.2L, Mean Corpuscular Volume 114H, Mean Corpuscular Hemoglobin 37.0H, Mean Corpuscular Hemoglobin Concent 32.6, Red Cell Distribution Width 15.9H, Platelet Count 94L, Mean Platelet Volume 7.3, Neutrophils (%) (Auto) , Lymphocytes (%) (Auto) , Monocytes (%) (Auto) , Eosinophils (%) (Auto) , Basophils (%) (Auto) , Differential Total Cells Counted 100, Neutrophils % ( Manual) 89H, Lymphocytes % (Manual) 2L, Monocytes % (Manual) 5, Eosinophils % ( Manual) 3, Basophils % (Manual) 0, Band Neutrophils 1, Platelet Estimate DecreasedL, Platelet Morphology Normal, Hypochromasia 1+, Anisocytosis 1+, Macrocytosis 1+, Prothrombin Time 17.0H, Prothromb Time International Ratio 1.6H , Sodium Level 144, Potassium Level 2.9L, Chloride Level 110H, Carbon Dioxide Level 20L, Anion Gap 15, Blood Urea Nitrogen 50H, Creatinine 1.8H, Estimat Glomerular Filtration Rate 42.0, Glucose Level 125H, Calcium Level 7.4L, Total Bilirubin 14.7H, Direct Bilirubin 12.0H, Aspartate Amino Transf (AST/SGOT) 87H, Alanine Aminotransferase (ALT/SGPT) 57, Alkaline Phosphatase 424H, Ammonia 57H, Total Protein 4.1L, Albumin 1.4L, Globulin 2.7, Albumin/Globulin Ratio 0.5L Height (Feet): 6 Height (Inches): 0.00 Weight (Pounds): 222 General Appearance: no apparent distress Respiratory/Chest: decreased breath sounds Abdomen: distended Extremities: moderate edema Objective no other changes MIKAELA AYOUB May 27, 2017 14:22
--- NOTE | 2017-05-27 16:35 | General Progress Note ---
Assessment/Plan Assessment/Plan IMPRESSION/PLAN 1. Leukocytosis 2/2 sepsis. ID following 2. Thrombocytopenia, multifactorial. The patient has a history of liver disease. Platelet goal is above 20K --> Give plts if count drops to 10K or if count is 20K and pt febrile 3. Anemia of chronic disease. Watch counts, transfuse if hgb below 7. 4. Anemia of kidney disease. 5. History of alcohol abuse. 6. Alcoholic liver cirrhosis. 7. Bilirubinemia. Subjective ROS Limited/Unobtainable: Yes Allergies: Coded Allergies: No Known Allergies (Unverified , 04/29/17) Subjective lethargic, s/p paracentesis Objective Last 24 Hour Vital Signs Date Time Temp Pulse Resp B/P (MAP) Pulse Ox O2 Delivery O2 Flow Rate FiO2 05/27/17 12:56 117/68 05/27/17 12:01 96 05/27/17 12:00 97.2 99 19 117/68 98 Nasal Cannula 2.0 05/27/17 08:39 115/72 05/27/17 08:06 97.3 96 22 115/72 94 Nasal Cannula 2.0 05/27/17 07:05 97 18 Nasal Cannula 2.0 28 05/27/17 07:05 97 Nasal Cannula 2.0 28 05/27/17 07:05 Nasal Cannula 2.0 28 05/27/17 04:21 102 05/27/17 04:00 97.7 103 24 129/75 94 Nasal Cannula 2.0 05/27/17 00:00 97.5 113 17 122/71 100 Nasal Cannula 3.0 113 05/27/17 00:00 109 05/26/17 20:00 106 05/26/17 19:55 97.2 106 16 123/66 100 Nasal Cannula 3.0 106 05/26/17 19:00 94 Nasal Cannula 2.0 28 05/26/17 19:00 Nasal Cannula 2.0 28 05/26/17 19:00 108 18 Nasal Cannula 2.0 28 05/26/17 17:59 123/75 Intake and Output 05/27/17 05/28/17 19:00 07:00 Intake Total 1235.0 ml Balance 1235.0 ml Intake Oral 240 ml IV Total 995.0 ml # Bowel Movements 4 Laboratory Tests 05/27/17 04:40: White Blood Count 17.9H, Red Blood Count 2.13L, Hemoglobin 7.9L, Hematocrit 24.2L, Mean Corpuscular Volume 114H, Mean Corpuscular Hemoglobin 37.0H, Mean Corpuscular Hemoglobin Concent 32.6, Red Cell Distribution Width 15.9H, Platelet Count 94L, Mean Platelet Volume 7.3, Neutrophils (%) (Auto) , Lymphocytes (%) (Auto) , Monocytes (%) (Auto) , Eosinophils (%) (Auto) , Basophils (%) (Auto) , Differential Total Cells Counted 100, Neutrophils % ( Manual) 89H, Lymphocytes % (Manual) 2L, Monocytes % (Manual) 5, Eosinophils % ( Manual) 3, Basophils % (Manual) 0, Band Neutrophils 1, Platelet Estimate DecreasedL, Platelet Morphology Normal, Hypochromasia 1+, Anisocytosis 1+, Macrocytosis 1+, Prothrombin Time 17.0H, Prothromb Time International Ratio 1.6H , Sodium Level 144, Potassium Level 2.9L, Chloride Level 110H, Carbon Dioxide Level 20L, Anion Gap 15, Blood Urea Nitrogen 50H, Creatinine 1.8H, Estimat Glomerular Filtration Rate 42.0, Glucose Level 125H, Calcium Level 7.4L, Total Bilirubin 14.7H, Direct Bilirubin 12.0H, Aspartate Amino Transf (AST/SGOT) 87H, Alanine Aminotransferase (ALT/SGPT) 57, Alkaline Phosphatase 424H, Ammonia 57H, Total Protein 4.1L, Albumin 1.4L, Globulin 2.7, Albumin/Globulin Ratio 0.5L Height (Feet): 6 Height (Inches): 0.00 Weight (Pounds): 222 General Appearance: no apparent distress EENT: normal ENT inspection Neck: normal alignment Cardiovascular: normal peripheral pulses Respiratory/Chest: chest wall non-tender Abdomen: distended Extremities: normal range of motion Joshua Hurley May 27, 2017 16:35
--- NOTE | 2017-05-27 16:40 | Infectious Diseases Prog Note ---
Assessment/Plan Problems: (1) HCAP (healthcare-associated pneumonia) Assessment & Plan: with extensive B/L infiltrates , can't rule out pneumonia , continue zosyn , pending sputum culture, monitor CXR (2) Sepsis Assessment & Plan: with significant leukocytosis , on zosyn , pending blood culture (3) Ascites due to alcoholic cirrhosis Assessment & Plan: with anasarca, needs diuresis, and daily weight monitor, S/ P paracentesis , await fluids for culture (4) Liver cirrhosis, alcoholic Assessment & Plan: continue supportive care, GI is following (5) QAMAR (acute kidney injury) Assessment & Plan: suspect hepatorenal, monitor urine output, and avoid nephrotoxic medicine (6) Acute respiratory failure Assessment & Plan: due to the above , off BIPAP, on nasal canula , monitor ABG , and CXR, pulmonary is following Subjective Constitutional: Reports: fatigue, anorexia HEENT: Reports: no symptoms Respiratory: Reports: dry cough Breasts: Reports: no symptoms Cardiovascular: Reports: no symptoms Gastrointestinal/Abdominal: Reports: diarrhea, bloating Genitourinary: Reports: no symptoms Neurologic: Reports: no symptoms Psychiatric: Reports: no symptoms Skin: Reports: other - jaundiced Endocrine: Reports: no symptoms Hematologic: Reports: no symptoms Musculoskeletal: Reports: no symptoms Allergies: Coded Allergies: No Known Allergies (Unverified , 04/29/17) Objective Vital Signs Last 24 Hour Vital Signs Date Time Temp Pulse Resp B/P (MAP) Pulse Ox O2 Delivery O2 Flow Rate FiO2 05/27/17 12:56 117/68 05/27/17 12:01 96 05/27/17 12:00 97.2 99 19 117/68 98 Nasal Cannula 2.0 05/27/17 08:39 115/72 05/27/17 08:06 97.3 96 22 115/72 94 Nasal Cannula 2.0 05/27/17 07:05 97 18 Nasal Cannula 2.0 28 05/27/17 07:05 97 Nasal Cannula 2.0 28 05/27/17 07:05 Nasal Cannula 2.0 28 05/27/17 04:21 102 05/27/17 04:00 97.7 103 24 129/75 94 Nasal Cannula 2.0 05/27/17 00:00 97.5 113 17 122/71 100 Nasal Cannula 3.0 113 05/27/17 00:00 109 05/26/17 20:00 106 05/26/17 19:55 97.2 106 16 123/66 100 Nasal Cannula 3.0 106 05/26/17 19:00 94 Nasal Cannula 2.0 28 05/26/17 19:00 Nasal Cannula 2.0 28 05/26/17 19:00 108 18 Nasal Cannula 2.0 28 05/26/17 17:59 123/75 Height (Feet): 6 Height (Inches): 0.00 Weight (Pounds): 222 General Appearance: WD/WN, no acute distress HEENT: normocephalic, atraumatic, anicteric, mucous membranes moist Respiratory/Chest: chest wall non-tender, lungs clear, normal breath sounds, no respiratory distress, no accessory muscle use Cardiovascular: normal peripheral pulses, normal rate, regular rhythm, no gallop/murmur, no JVD Abdomen: normal bowel sounds, soft, non tender, no organomegaly, non distended , no mass, no scars Extremities: no cyanosis, no clubbing Skin: no rash, no lesions, no ulcers Neurologic/Psychiatric: alert, oriented x 3 Lymphatic: no neck adenopathy, no groin adenopathy Microbiology Date/Time Source Procedure Growth Status 05/25/17 01:30 Nasal Nares MRSA Culture - Final NO METHICILLIN RESISTANT STAPH AUREUS... Complete 05/26/17 16:47 Abdominal Fluid Gram Stain - Final Resulted 05/26/17 16:47 Abdominal Fluid Body Fluid Culture - Preliminary NO GROWTH AFTER 24 HOURS Resulted 05/25/17 01:30 Rectum VRE Culture - Final Enterococcus Faecium - Vre Complete Laboratory Tests Test 05/27/17 04:40 White Blood Count 17.9 K/UL (4.8-10.8) H Red Blood Count 2.13 M/UL (4.70-6.10) L Hemoglobin 7.9 G/DL (14.2-18.0) L Hematocrit 24.2 % (42.0-52.0) L Mean Corpuscular Volume 114 FL (80-99) H Mean Corpuscular Hemoglobin 37.0 PG (27.0-31.0) H Mean Corpuscular Hemoglobin Concent 32.6 G/DL (32.0-36.0) Red Cell Distribution Width 15.9 % (11.6-14.8) H Platelet Count 94 K/UL (150-450) L Mean Platelet Volume 7.3 FL (6.5-10.1) Neutrophils (%) (Auto) % (45.0-75.0) Lymphocytes (%) (Auto) % (20.0-45.0) Monocytes (%) (Auto) % (1.0-10.0) Eosinophils (%) (Auto) % (0.0-3.0) Basophils (%) (Auto) % (0.0-2.0) Differential Total Cells Counted 100 Neutrophils % (Manual) 89 % (45-75) H Lymphocytes % (Manual) 2 % (20-45) L Monocytes % (Manual) 5 % (1-10) Eosinophils % (Manual) 3 % (0-3) Basophils % (Manual) 0 % (0-2) Band Neutrophils 1 % (0-8) Platelet Estimate Decreased L Platelet Morphology Normal Hypochromasia 1+ Anisocytosis 1+ Macrocytosis 1+ Prothrombin Time 17.0 SEC (9.30-11.50) H Prothromb Time International Ratio 1.6 (0.9-1.1) H Sodium Level 144 MMOL/L (136-145) Potassium Level 2.9 MMOL/L (3.5-5.1) L Chloride Level 110 MMOL/L (98-107) H Carbon Dioxide Level 20 MMOL/L (21-32) L Anion Gap 15 mmol/L (5-15) Blood Urea Nitrogen 50 mg/dL (7-18) H Creatinine 1.8 MG/DL (0.55-1.30) H Estimat Glomerular Filtration Rate 42.0 mL/min (>60) Glucose Level 125 MG/DL (74-106) H Calcium Level 7.4 MG/DL (8.5-10.1) L Total Bilirubin 14.7 MG/DL (0.2-1.0) H Direct Bilirubin 12.0 MG/DL (0.0-0.3) H Aspartate Amino Transf (AST/SGOT) 87 U/L (15-37) H Alanine Aminotransferase (ALT/SGPT) 57 U/L (12-78) Alkaline Phosphatase 424 U/L (46-116) H Ammonia 57 umol/L (11.2-31.7) H Total Protein 4.1 G/DL (6.4-8.2) L Albumin 1.4 G/DL (3.4-5.0) L Globulin 2.7 g/dL Albumin/Globulin Ratio 0.5 (1.0-2.7) L Current Medications Medications (Trade) Dose Ordered Sig/Leonard Route PRN Reason Start Time Stop Time Status Last Admin Dose Admin Albumin Human 100 ml @ 100 mls/hr ONCE ONCE IVPB 05/28/17 10:00 05/28/17 10:59 Albuterol Sulfate (Proventil MDI) 2 puff BIDPRN PRN INH Shortness of Breath 05/24/17 21:45 06/23/17 21:44 Clotrimazole (Lotrimin) 1 applic EVERY 12 HOURS TOPIC 05/25/17 14:00 06/24/17 13:59 05/27/17 08:40 Dextrose/Sodium Chloride 1,000 ml @ 50 mls/hr Q20H IV 05/24/17 22:00 06/23/17 21:59 05/27/17 11:20 Midodrine (Pro-Amatine) 10 mg THREE TIMES A DAY ORAL 05/25/17 09:00 06/24/17 08:59 05/27/17 12:56 Mirtazapine (Remeron) 15 mg BEDTIME ORAL 05/27/17 21:00 06/26/17 20:59 Octreotide Acetate (SandoSTATIN) 100 mcg Q8HR SUBQ 05/26/17 22:00 06/25/17 21:59 05/27/17 13:05 Piperacillin/ Tazobactam/ Dextrose 50 ml @ 12.5 mls/hr Q8HR@0400,1200,2000 IVPB 05/25/17 04:00 06/01/17 03:59 05/27/17 11:20 Prednisone (predniSONE) 40 mg DAILY ORAL 05/27/17 14:30 06/26/17 14:29 05/27/17 15:26 Tamsulosin HCl (Flomax) 0.4 mg BEDTIME ORAL 05/25/17 22:00 06/24/17 21:59 05/26/17 22:04 Thiamine HCl (Vitamin B1) 100 mg DAILY ORAL 05/25/17 09:00 06/24/17 08:59 05/27/17 08:40 Vitamin D (Vitamin D) 1,000 intlu DAILY ORAL 05/25/17 09:00 06/24/17 08:59 05/27/17 08:39 Janae Lopez M.D. May 27, 2017 16:40
[2017-05-27 20:00] VITALS: BP 129/59
[2017-05-27] MEDS: Tamsulosin 0.4mg cap ORAL SCH (20:30)
[2017-05-28 00:06] VITALS: BP 127/73
[2017-05-28] MEDS: SandoSTATIN 100mcg/ml amp SUBQ SCH ×4 (00:37→21:19)
[2017-05-28 04:00] VITALS: BP 119/64
[2017-05-28 05:30] LABS: MEAN CORPUSCULAR HEMOGLOBIN 37.4 PG (27.0-31.0); MEAN CORPUSCULAR HGB CONC 31.8 G/DL (32.0-36.0); MEAN CORPUSCULAR VOLUME 118 FL (80-99); MEAN PLATELET VOLUME 6.8 FL (6.5-10.1); PLATELET COUNT 92 K/UL (150-450); RED BLOOD COUNT 2.26 M/UL (4.70-6.10); RED CELL DISTRIBUTION WIDTH 16.6 % (11.6-14.8); WHITE BLOOD COUNT 16.6 K/UL (4.8-10.8)
[2017-05-28] MEDS: D5NS 1,000 ML IV SCH ×2 (06:21→15:30)
[2017-05-28] MEDS: Zosyn 3.375gm/50ml Premix 50 ML IVPB SCH ×3 (06:21→21:19)
[2017-05-28 07:03] LABS: ANION GAP 11 mmol/L (5-15); CALCIUM 7.3 MG/DL (8.5-10.1); CARBON DIOXIDE 21 MMOL/L (21-32); CHLORIDE 112 MMOL/L (98-107); CREATININE 2.5 MG/DL (0.55-1.30); GLOMERULAR FILTRATION RATE 28.7 mL/min (>60); POTASSIUM 3.3 MMOL/L (3.5-5.1); SODIUM 144 MMOL/L (136-145)
[2017-05-28 07:04] LABS: ALANINE AMINOTRANSFERASE 39 U/L (12-78); ALBUMIN/GLOBULIN RATIO 0.6 (1.0-2.7); ASPARTATE AMINO TRANSFERASE 80 U/L (15-37); TOTAL PROTEIN 4.2 G/DL (6.4-8.2)
[2017-05-28 07:09] LABS: BILIRUBIN,DIRECT 11.9 MG/DL (0.0-0.3)
[2017-05-28 07:49] LABS: BAND NEUTROPHILS % (MANUAL) 0 % (0-8); BASOPHILS % (MANUAL) 0 % (0-2); EOSINOPHILS % (MANUAL) 0 % (0-3); HYPOCHROMASIA 2+; LYMPHOCYTES % (MANUAL) 2 % (20-45); NEUTROPHILS % (MANUAL) 95 % (45-75); PLATELET ESTIMATE DECREASED; TOTAL CELLS COUNTED 100
[2017-05-28 07:50] LABS: ANISOCYTOSIS 1+; MACROCYTES 3+; PLATELET MORPHOLOGY NORMAL
[2017-05-28 08:00] VITALS: BP 137/63
[2017-05-28 08:34] LABS: MAGNESIUM 1.7 MG/DL (1.8-2.4); PHOSPHORUS 4.1 MG/DL (2.5-4.9); URIC ACID 5.9 MG/DL (2.6-7.2)
[2017-05-28] MEDS: Midodrine 10mg tab ORAL SCH ×3 (08:46→18:19)
[2017-05-28] MEDS: Thiamine 100mg tab ORAL SCH (08:46)
[2017-05-28] MEDS: Vitamin D 1000 IU Tab ORAL SCH (08:46)
[2017-05-28] MEDS ORDERED: KCl 10% 40mEq/30ml liquid ORAL ONE (10:00)
[2017-05-28 11:10] LABS: APPEARANCE,URINE SLIGHTLY CLOUDY; KETONES,URINE NEGATIVE (NEGATIVE); LEUKOCYTE ESTERASE ,URINE 1+ (NEGATIVE); NITRITE,URINE NEGATIVE (NEGATIVE); PH,URINE 5 (4.5-8.0); PROTEIN,URINE 2+ (NEGATIVE); UROBILINOGEN,URINE 1 MG/DL (0.0-1.0)
[2017-05-28 11:35] LABS: BACTERIA,URINE FEW /HPF; ICTOTEST POSITIVE; SQUAMOUS EPITHELIAL CELL,UR OCCASIONAL /LPF (NONE/OCC); YEAST,URINE MANY /HPF
--- NOTE | 2017-05-28 11:52 | GI Progress Note ---
Assessment/Plan Problems: (1) Renal failure (ARF), acute on chronic ICD Codes: N17.9 - Acute kidney failure, unspecified; N18.9 - Chronic kidney disease, unspecified SNOMED: 786565104 (2) Ascites due to alcoholic cirrhosis ICD Codes: K70.31 - Alcoholic cirrhosis of liver with ascites SNOMED: 8781334431012676 (3) Jaundice of recent onset ICD Codes: R17 - Unspecified jaundice SNOMED: 66487482 (4) Leukocytosis ICD Codes: D72.829 - Elevated white blood cell count, unspecified SNOMED: 797700959, 307253982 (5) Sepsis ICD Codes: A41.9 - Sepsis, unspecified organism SNOMED: 36044256 (6) Liver cirrhosis, alcoholic ICD Codes: K70.30 - Alcoholic cirrhosis of liver without ascites SNOMED: 648354749, [id number] Status: stable Status Narrative Discussed with Dr. Daly. Assessment/Plan Assessment - Alcoholic liver disease - liver failure - MELD score 27 - leukocytosis - Edema - poor prognosis OB positive Recommendation prednisone daily monitor H&H, prn transfusion dc lactulose abx fu ultrasound guided paracentesis >> r/o SBP albumin IV x 3 days octreotide subq + midodrine fu labs per consultants Subjective Gastrointestinal/Abdominal: Reports: no symptoms Subjective patient is more alert today Objective Last 24 Hour Vital Signs Date Time Temp Pulse Resp B/P (MAP) Pulse Ox O2 Delivery O2 Flow Rate FiO2 05/28/17 08:00 97.5 94 20 137/63 95 Nasal Cannula 3.0 05/28/17 07:27 79 05/28/17 06:35 Nasal Cannula 2.0 28 05/28/17 06:35 96 Nasal Cannula 2.0 28 05/28/17 06:35 82 18 Nasal Cannula 2.0 28 05/28/17 04:00 83 05/28/17 04:00 97.7 90 24 119/64 97 Nasal Cannula 4.0 05/28/17 00:06 97.4 83 24 127/73 97 Nasal Cannula 4.0 05/28/17 00:00 83 05/27/17 20:00 97.5 86 19 129/59 98 Nasal Cannula 2.0 05/27/17 19:47 89 05/27/17 19:30 Nasal Cannula 2.0 28 05/27/17 19:30 97 Nasal Cannula 2.0 28 05/27/17 19:30 86 18 Nasal Cannula 2.0 28 05/27/17 16:00 90 05/27/17 12:56 117/68 05/27/17 12:01 96 05/27/17 12:00 97.2 99 19 68 98 Nasal Cannula 2.0 Intake and Output 05/28/17 05/29/17 19:00 07:00 # Bowel Movements 1 Laboratory Tests Test 05/28/17 03:50 05/28/17 09:00 White Blood Count 16.6 K/UL (4.8-10.8) H Red Blood Count 2.26 M/UL (4.70-6.10) L Hemoglobin 8.4 G/DL (14.2-18.0) L Hematocrit 26.5 % (42.0-52.0) L Mean Corpuscular Volume 118 FL (80-99) H Mean Corpuscular Hemoglobin 37.4 PG (27.0-31.0) H Mean Corpuscular Hemoglobin Concent 31.8 G/DL (32.0-36.0) L Red Cell Distribution Width 16.6 % (11.6-14.8) H Platelet Count 92 K/UL (150-450) L Mean Platelet Volume 6.8 FL (6.5-10.1) Neutrophils (%) (Auto) % (45.0-75.0) Lymphocytes (%) (Auto) % (20.0-45.0) Monocytes (%) (Auto) % (1.0-10.0) Eosinophils (%) (Auto) % (0.0-3.0) Basophils (%) (Auto) % (0.0-2.0) Differential Total Cells Counted 100 Neutrophils % (Manual) 95 % (45-75) H Lymphocytes % (Manual) 2 % (20-45) L Monocytes % (Manual) 3 % (1-10) Eosinophils % (Manual) 0 % (0-3) Basophils % (Manual) 0 % (0-2) Band Neutrophils 0 % (0-8) Platelet Estimate Decreased L Platelet Morphology Normal Hypochromasia 2+ Anisocytosis 1+ Macrocytosis 3+ Sodium Level 144 MMOL/L (136-145) Potassium Level 3.3 MMOL/L (3.5-5.1) L Chloride Level 112 MMOL/L (98-107) H Carbon Dioxide Level 21 MMOL/L (21-32) Anion Gap 11 mmol/L (5-15) Blood Urea Nitrogen 49 mg/dL (7-18) H Creatinine 2.5 MG/DL (0.55-1.30) H Estimat Glomerular Filtration Rate 28.7 mL/min (>60) Glucose Level 147 MG/DL (74-106) H Uric Acid 5.9 MG/DL (2.6-7.2) Calcium Level 7.3 MG/DL (8.5-10.1) L Phosphorus Level 4.1 MG/DL (2.5-4.9) Magnesium Level 1.7 MG/DL (1.8-2.4) L Total Bilirubin 14.7 MG/DL (0.2-1.0) H Direct Bilirubin 11.9 MG/DL (0.0-0.3) H Gamma Glutamyl Transpeptidase 361 U/L (5-85) H Aspartate Amino Transf (AST/SGOT) 80 U/L (15-37) H Alanine Aminotransferase (ALT/SGPT) 39 U/L (12-78) Alkaline Phosphatase 414 U/L (46-116) H Total Protein 4.2 G/DL (6.4-8.2) L Albumin 1.6 G/DL (3.4-5.0) L Globulin 2.6 g/dL Albumin/Globulin Ratio 0.6 (1.0-2.7) L Urine Color Brown Urine Appearance Slightly cloudy Urine pH 5 (4.5-8.0) Urine Specific [place] 1.015 (1.005-1.035) Urine Protein 2+ (NEGATIVE) H Urine Glucose (UA) Negative (NEGATIVE) Urine Ketones Negative (NEGATIVE) Urine Occult Blood 1+ (NEGATIVE) H Urine Nitrite Negative (NEGATIVE) Urine Bilirubin 2+ (NEGATIVE) H Urine Ictotest Positive Urine Urobilinogen 1 MG/DL (0.0-1.0) H Urine Leukocyte Esterase 1+ (NEGATIVE) H Urine RBC 2-4 /HPF (0 - 0) H Urine WBC 2-4 /HPF (0 - 0) Urine Squamous Epithelial Cells Occasional /LPF Urine Bacteria Few /HPF (NONE) Urine Yeast Many /HPF (NONE) H Urine Random Sodium Pending Height (Feet): 6 Height (Inches): 0.00 Weight (Pounds): 222 General Appearance: WD/WN, no apparent distress, alert Cardiovascular: normal rate Respiratory/Chest: normal breath sounds, no respiratory distress, other - 2LNC Abdominal Exam: normal bowel sounds, non tender, soft Extremities: non-tender, swelling - BLE edema Danay Grady N.P. May 28, 2017 11:52
[2017-05-28 12:00] VITALS: BP 122/69
--- NOTE | 2017-05-28 12:37 | Pulmonology Progress Note ---
Assessment/Plan Assessment/Plan ASSESSMENT: Respiratory distress, improved possible pneumonia volume overload decompensated liver failure cirrhosis ascites altered mental status. PLAN: cough after eating; swallow eval +risk for aspiration nebulizer treatments O2 maintain to sats greater than 92%. Abx per ID f/u CXR Subjective ROS Limited/Unobtainable: Yes Respiratory: Denies: shortness of breath Allergies: Coded Allergies: No Known Allergies (Unverified , 04/29/17) Objective Last 24 Hour Vital Signs Date Time Temp Pulse Resp B/P (MAP) Pulse Ox O2 Delivery O2 Flow Rate FiO2 05/28/17 08:00 97.5 94 20 137/63 95 Nasal Cannula 3.0 05/28/17 07:27 79 05/28/17 06:35 Nasal Cannula 2.0 28 05/28/17 06:35 96 Nasal Cannula 2.0 28 05/28/17 06:35 82 18 Nasal Cannula 2.0 28 05/28/17 04:00 83 05/28/17 04:00 97.7 90 24 119/64 97 Nasal Cannula 4.0 05/28/17 00:06 97.4 83 24 127/73 97 Nasal Cannula 4.0 05/28/17 00:00 83 05/27/17 20:00 97.5 86 19 129/59 98 Nasal Cannula 2.0 05/27/17 19:47 89 05/27/17 19:30 Nasal Cannula 2.0 28 05/27/17 19:30 97 Nasal Cannula 2.0 28 05/27/17 19:30 86 18 Nasal Cannula 2.0 28 05/27/17 16:00 90 05/27/17 12:56 117/68 Intake and Output 05/28/17 05/29/17 19:00 07:00 Intake Total 450.0 ml Balance 450.0 ml IV Total 450.0 ml # Bowel Movements 1 Objective jaundice and scleral icterus General Appearance: no acute distress Respiratory/Chest: decreased breath sounds Cardiovascular: normal rate Abdomen: other Microbiology Date/Time Source Procedure Growth Status 05/26/17 16:47 Abdominal Fluid Gram Stain - Final Resulted 05/26/17 16:47 Abdominal Fluid Body Fluid Culture - Preliminary NO GROWTH AFTER 48 HOURS Resulted Laboratory Tests 05/28/17 03:50: White Blood Count 16.6H, Red Blood Count 2.26L, Hemoglobin 8.4L, Hematocrit 26.5L, Mean Corpuscular Volume 118H, Mean Corpuscular Hemoglobin 37.4H, Mean Corpuscular Hemoglobin Concent 31.8L, Red Cell Distribution Width 16.6H, Platelet Count 92L, Mean Platelet Volume 6.8, Neutrophils (%) (Auto) , Lymphocytes (%) (Auto) , Monocytes (%) (Auto) , Eosinophils (%) (Auto) , Basophils (%) (Auto) , Differential Total Cells Counted 100, Neutrophils % ( Manual) 95H, Lymphocytes % (Manual) 2L, Monocytes % (Manual) 3, Eosinophils % ( Manual) 0, Basophils % (Manual) 0, Band Neutrophils 0, Platelet Estimate DecreasedL, Platelet Morphology Normal, Hypochromasia 2+, Anisocytosis 1+, Macrocytosis 3+, Sodium Level 144, Potassium Level 3.3L, Chloride Level 112H, Carbon Dioxide Level 21, Anion Gap 11, Blood Urea Nitrogen 49H, Creatinine 2.5H , Estimat Glomerular Filtration Rate 28.7, Glucose Level 147H, Uric Acid 5.9, Calcium Level 7.3L, Phosphorus Level 4.1, Magnesium Level 1.7L, Total Bilirubin 14.7H, Direct Bilirubin 11.9H, Gamma Glutamyl Transpeptidase 361H, Aspartate Amino Transf (AST/SGOT) 80H, Alanine Aminotransferase (ALT/SGPT) 39, Alkaline Phosphatase 414H, Total Protein 4.2L, Albumin 1.6L, Globulin 2.6, Albumin/ Globulin Ratio 0.6L 05/28/17 09:00: Urine Color Brown, Urine Appearance Slightly cloudy, Urine pH 5, Urine Specific [place] 1.015, Urine Protein 2+H, Urine Glucose (UA) Negative, Urine Ketones Negative, Urine Occult Blood 1+H, Urine Nitrite Negative, Urine Bilirubin 2+H, Urine Ictotest Positive, Urine Urobilinogen 1H, Urine Leukocyte Esterase 1+H, Urine RBC 2-4H, Urine WBC 2-4, Urine Squamous Epithelial Cells Occasional, Urine Bacteria Few, Urine Yeast ManyH, Urine Random Sodium 16L Current Medications Medications (Trade) Dose Ordered Sig/Leonard Route PRN Reason Start Time Stop Time Status Last Admin Dose Admin Albuterol Sulfate (Proventil MDI) 2 puff BIDPRN PRN INH Shortness of Breath 05/24/17 21:45 06/23/17 21:44 Clotrimazole (Lotrimin) 1 applic EVERY 12 HOURS TOPIC 05/25/17 14:00 06/24/17 13:59 05/28/17 08:47 Dextrose/Sodium Chloride 1,000 ml @ 50 mls/hr Q20H IV 05/24/17 22:00 06/23/17 21:59 05/28/17 06:21 Midodrine (Pro-Amatine) 10 mg THREE TIMES A DAY ORAL 05/25/17 09:00 06/24/17 08:59 05/28/17 08:46 Mirtazapine (Remeron) 15 mg BEDTIME ORAL 05/27/17 21:00 06/26/17 20:59 05/27/17 20:30 Octreotide Acetate (SandoSTATIN) 100 mcg Q8HR SUBQ 05/26/17 22:00 06/25/17 21:59 05/28/17 06:22 Piperacillin/ Tazobactam/ Dextrose 50 ml @ 12.5 mls/hr Q8HR@0400,1200,2000 IVPB 05/25/17 04:00 06/01/17 03:59 05/28/17 06:21 Prednisone (predniSONE) 40 mg DAILY ORAL 05/27/17 14:30 06/26/17 14:29 05/28/17 08:46 Tamsulosin HCl (Flomax) 0.4 mg BEDTIME ORAL 05/25/17 22:00 06/24/17 21:59 05/27/17 20:30 Thiamine HCl (Vitamin B1) 100 mg DAILY ORAL 05/25/17 09:00 06/24/17 08:59 05/28/17 08:46 Vitamin D (Vitamin D) 1,000 intlu DAILY ORAL 05/25/17 09:00 06/24/17 08:59 05/28/17 08:46 JAMES NAVARRO May 28, 2017 12:37
--- NOTE | 2017-05-28 14:25 | Infectious Diseases Prog Note ---
Assessment/Plan Problems: (1) HCAP (healthcare-associated pneumonia) Assessment & Plan: with extensive B/L infiltrates , can't rule out pneumonia , improving on zosyn , continue to monitor CXR (2) Sepsis Assessment & Plan: with significant leukocytosis , on zosyn , blood culture grew coag negative staph from one bottle most likely contaminant (3) Ascites due to alcoholic cirrhosis Assessment & Plan: with anasarca, recommend diuresis, and daily weight monitor , S/P paracentesis , fluids culture is negative (4) Liver cirrhosis, alcoholic Assessment & Plan: continue supportive care, GI is following (5) QAMAR (acute kidney injury) Assessment & Plan: suspect hepatorenal, monitor urine output, and avoid nephrotoxic medicine (6) Acute respiratory failure Assessment & Plan: due to the above , off BIPAP, on nasal canula , monitor ABG , and CXR, pulmonary is following Subjective Constitutional: Reports: fatigue, anorexia HEENT: Reports: no symptoms Respiratory: Reports: shortness of breath Breasts: Reports: no symptoms Cardiovascular: Reports: no symptoms Gastrointestinal/Abdominal: Reports: diarrhea, bloating Genitourinary: Reports: no symptoms Neurologic: Reports: no symptoms Psychiatric: Reports: depression Skin: Reports: other - jaundice Endocrine: Reports: no symptoms Hematologic: Reports: no symptoms Allergies: Coded Allergies: No Known Allergies (Unverified , 04/29/17) Objective Vital Signs Last 24 Hour Vital Signs Date Time Temp Pulse Resp B/P (MAP) Pulse Ox O2 Delivery O2 Flow Rate FiO2 05/28/17 12:00 97.5 90 21 122/69 95 Room Air 05/28/17 08:00 97.5 94 20 137/63 95 Nasal Cannula 3.0 05/28/17 07:27 79 05/28/17 06:35 Nasal Cannula 2.0 28 05/28/17 06:35 96 Nasal Cannula 2.0 28 05/28/17 06:35 82 18 Nasal Cannula 2.0 05/28/17 04:00 83 05/28/17 04:00 97.7 90 24 119/64 97 Nasal Cannula 4.0 05/28/17 00:06 97.4 83 24 127/73 97 Nasal Cannula 4.0 05/28/17 00:00 83 05/27/17 20:00 97.5 86 19 129/59 98 Nasal Cannula 2.0 05/27/17 19:47 89 05/27/17 19:30 Nasal Cannula 2.0 28 05/27/17 19:30 97 Nasal Cannula 2.0 28 05/27/17 19:30 86 18 Nasal Cannula 2.0 28 05/27/17 16:00 90 Height (Feet): 6 Height (Inches): 0.00 Weight (Pounds): 222 General Appearance: WD/WN, no acute distress HEENT: normocephalic, atraumatic, anicteric, mucous membranes moist, supple, no JVD Respiratory/Chest: chest wall non-tender, lungs clear, normal breath sounds, no respiratory distress, no accessory muscle use Cardiovascular: normal peripheral pulses, normal rate, regular rhythm, no gallop/murmur, no JVD Abdomen: normal bowel sounds, soft, non tender, no organomegaly, non distended , no mass, no scars Extremities: no cyanosis, no clubbing Skin: no rash, no lesions, other - right lower abdomen puncture hole of paracentesis, covered by dressing Neurologic/Psychiatric: alert, oriented x 3 Microbiology Date/Time Source Procedure Growth Status 05/26/17 16:47 Abdominal Fluid Gram Stain - Final Resulted 05/26/17 16:47 Abdominal Fluid Body Fluid Culture - Preliminary NO GROWTH AFTER 48 HOURS Resulted Laboratory Tests Test 05/28/17 03:50 05/28/17 09:00 White Blood Count 16.6 K/UL (4.8-10.8) H Red Blood Count 2.26 M/UL (4.70-6.10) L Hemoglobin 8.4 G/DL (14.2-18.0) L Hematocrit 26.5 % (42.0-52.0) L Mean Corpuscular Volume 118 FL (80-99) H Mean Corpuscular Hemoglobin 37.4 PG (27.0-31.0) H Mean Corpuscular Hemoglobin Concent 31.8 G/DL (32.0-36.0) L Red Cell Distribution Width 16.6 % (11.6-14.8) H Platelet Count 92 K/UL (150-450) L Mean Platelet Volume 6.8 FL (6.5-10.1) Neutrophils (%) (Auto) % (45.0-75.0) Lymphocytes (%) (Auto) % (20.0-45.0) Monocytes (%) (Auto) % (1.0-10.0) Eosinophils (%) (Auto) % (0.0-3.0) Basophils (%) (Auto) % (0.0-2.0) Differential Total Cells Counted 100 Neutrophils % (Manual) 95 % (45-75) H Lymphocytes % (Manual) 2 % (20-45) L Monocytes % (Manual) 3 % (1-10) Eosinophils % (Manual) 0 % (0-3) Basophils % (Manual) 0 % (0-2) Band Neutrophils 0 % (0-8) Platelet Estimate Decreased L Platelet Morphology Normal Hypochromasia 2+ Anisocytosis 1+ Macrocytosis 3+ Sodium Level 144 MMOL/L (136-145) Potassium Level 3.3 MMOL/L (3.5-5.1) L Chloride Level 112 MMOL/L (98-107) H Carbon Dioxide Level 21 MMOL/L (21-32) Anion Gap 11 mmol/L (5-15) Blood Urea Nitrogen 49 mg/dL (7-18) H Creatinine 2.5 MG/DL (0.55-1.30) H Estimat Glomerular Filtration Rate 28.7 mL/min (>60) Glucose Level 147 MG/DL (74-106) H Uric Acid 5.9 MG/DL (2.6-7.2) Calcium Level 7.3 MG/DL (8.5-10.1) L Phosphorus Level 4.1 MG/DL (2.5-4.9) Magnesium Level 1.7 MG/DL (1.8-2.4) L Total Bilirubin 14.7 MG/DL (0.2-1.0) H Direct Bilirubin 11.9 MG/DL (0.0-0.3) H Gamma Glutamyl Transpeptidase 361 U/L (5-85) H Aspartate Amino Transf (AST/SGOT) 80 U/L (15-37) H Alanine Aminotransferase (ALT/SGPT) 39 U/L (12-78) Alkaline Phosphatase 414 U/L (46-116) H Total Protein 4.2 G/DL (6.4-8.2) L Albumin 1.6 G/DL (3.4-5.0) L Globulin 2.6 g/dL Albumin/Globulin Ratio 0.6 (1.0-2.7) L Urine Color Brown Urine Appearance Slightly cloudy Urine pH 5 (4.5-8.0) Urine Specific [place] 1.015 (1.005-1.035) Urine Protein 2+ (NEGATIVE) H Urine Glucose (UA) Negative (NEGATIVE) Urine Ketones Negative (NEGATIVE) Urine Occult Blood 1+ (NEGATIVE) H Urine Nitrite Negative (NEGATIVE) Urine Bilirubin 2+ (NEGATIVE) H Urine Ictotest Positive Urine Urobilinogen 1 MG/DL (0.0-1.0) H Urine Leukocyte Esterase 1+ (NEGATIVE) H Urine RBC 2-4 /HPF (0 - 0) H Urine WBC 2-4 /HPF (0 - 0) Urine Squamous Epithelial Cells Occasional /LPF Urine Bacteria Few /HPF (NONE) Urine Yeast Many /HPF (NONE) H Urine Random Sodium 16 MEQ/L (20-110) L Current Medications Medications (Trade) Dose Ordered Sig/Leonard Route PRN Reason Start Time Stop Time Status Last Admin Dose Admin Albumin Human 100 ml @ 100 mls/hr ONCE ONCE IV 05/28/17 14:15 05/28/17 15:14 Albuterol Sulfate (Proventil MDI) 2 puff BIDPRN PRN INH Shortness of Breath 05/24/17 21:45 06/23/17 21:44 Clotrimazole (Lotrimin) 1 applic EVERY 12 HOURS TOPIC 05/25/17 14:00 06/24/17 13:59 05/28/17 08:47 Dextrose/Sodium Chloride 1,000 ml @ 100 mls/hr Q10H IV 05/28/17 15:00 06/27/17 14:59 Midodrine (Pro-Amatine) 10 mg THREE TIMES A DAY ORAL 05/25/17 09:00 06/24/17 08:59 05/28/17 13:04 Mirtazapine (Remeron) 15 mg BEDTIME ORAL 05/27/17 21:00 06/26/17 20:59 05/27/17 20:30 Octreotide Acetate (SandoSTATIN) 100 mcg Q8HR SUBQ 05/26/17 22:00 06/25/17 21:59 05/28/17 06:22 Piperacillin/ Tazobactam/ Dextrose 50 ml @ 12.5 mls/hr Q8HR@0400,1200,2000 IVPB 05/25/17 04:00 06/01/17 03:59 05/28/17 13:04 Prednisone (predniSONE) 40 mg DAILY ORAL 05/27/17 14:30 06/26/17 14:29 05/28/17 08:46 Tamsulosin HCl (Flomax) 0.4 mg BEDTIME ORAL 05/25/17 22:00 06/24/17 21:59 05/27/17 20:30 Thiamine HCl (Vitamin B1) 100 mg DAILY ORAL 05/25/17 09:00 06/24/17 08:59 05/28/17 08:46 Vitamin D (Vitamin D) 1,000 intlu DAILY ORAL 05/25/17 09:00 06/24/17 08:59 05/28/17 08:46 Janae Lopez M.D. May 28, 2017 14:25
--- NOTE | 2017-05-28 15:19 | Nephrology Progress Note ---
Assessment/Plan Problem List: (1) Liver cirrhosis, alcoholic (2) Ascites due to alcoholic cirrhosis (3) Renal failure (ARF), acute on chronic Assessment Renal failure on admit , likely hepatorenal- Cr rpse to 2.5 pneumonia, leukocytosis h/o low Na due to anasarca High K , Kayexelate given Jaundice Anemia low alb Plan Plan: K supplement Antibiotics- avoid nephrotoxics- monitor renal parameters optimize pulmonary and renal and hepatic status as possible. per consultants Subjective ROS Limited/Unobtainable: No Constitutional: Reports: malaise Objective Objective Last 24 Hour Vital Signs Date Time Temp Pulse Resp B/P (MAP) Pulse Ox O2 Delivery O2 Flow Rate FiO2 05/28/17 12:00 97.5 90 21 122/69 95 Room Air 05/28/17 11:41 90 05/28/17 08:00 97.5 94 20 137/63 95 Nasal Cannula 3.0 05/28/17 07:27 79 05/28/17 06:35 Nasal Cannula 2.0 28 05/28/17 06:35 96 Nasal Cannula 2.0 28 05/28/17 06:35 82 18 Nasal Cannula 2.0 28 05/28/17 04:00 83 05/28/17 04:00 97.7 90 24 119/64 97 Nasal Cannula 4.0 05/28/17 00:06 97.4 83 24 127/73 97 Nasal Cannula 4.0 05/28/17 00:00 83 05/27/17 20:00 97.5 86 19 129/59 98 Nasal Cannula 2.0 05/27/17 19:47 89 05/27/17 19:30 Nasal Cannula 2.0 28 05/27/17 19:30 97 Nasal Cannula 2.0 28 05/27/17 19:30 86 18 Nasal Cannula 2.0 28 05/27/17 16:00 90 Intake and Output 05/28/17 05/29/17 19:00 07:00 Intake Total 450.0 ml Balance 450.0 ml IV Total 450.0 ml # Bowel Movements 1 Laboratory Tests 05/28/17 03:50: White Blood Count 16.6H, Red Blood Count 2.26L, Hemoglobin 8.4L, Hematocrit 26.5L, Mean Corpuscular Volume 118H, Mean Corpuscular Hemoglobin 37.4H, Mean Corpuscular Hemoglobin Concent 31.8L, Red Cell Distribution Width 16.6H, Platelet Count 92L, Mean Platelet Volume 6.8, Neutrophils (%) (Auto) , Lymphocytes (%) (Auto) , Monocytes (%) (Auto) , Eosinophils (%) (Auto) , Basophils (%) (Auto) , Differential Total Cells Counted 100, Neutrophils % ( Manual) 95H, Lymphocytes % (Manual) 2L, Monocytes % (Manual) 3, Eosinophils % ( Manual) 0, Basophils % (Manual) 0, Band Neutrophils 0, Platelet Estimate DecreasedL, Platelet Morphology Normal, Hypochromasia 2+, Anisocytosis 1+, Macrocytosis 3+, Sodium Level 144, Potassium Level 3.3L, Chloride Level 112H, Carbon Dioxide Level 21, Anion Gap 11, Blood Urea Nitrogen 49H, Creatinine 2.5H , Estimat Glomerular Filtration Rate 28.7, Glucose Level 147H, Uric Acid 5.9, Calcium Level 7.3L, Phosphorus Level 4.1, Magnesium Level 1.7L, Total Bilirubin 14.7H, Direct Bilirubin 11.9H, Gamma Glutamyl Transpeptidase 361H, Aspartate Amino Transf (AST/SGOT) 80H, Alanine Aminotransferase (ALT/SGPT) 39, Alkaline Phosphatase 414H, Total Protein 4.2L, Albumin 1.6L, Globulin 2.6, Albumin/ Globulin Ratio 0.6L 05/28/17 09:00: Urine Color Brown, Urine Appearance Slightly cloudy, Urine pH 5, Urine Specific [place] 1.015, Urine Protein 2+H, Urine Glucose (UA) Negative, Urine Ketones Negative, Urine Occult Blood 1+H, Urine Nitrite Negative, Urine Bilirubin 2+H, Urine Ictotest Positive, Urine Urobilinogen 1H, Urine Leukocyte Esterase 1+H, Urine RBC 2-4H, Urine WBC 2-4, Urine Squamous Epithelial Cells Occasional, Urine Bacteria Few, Urine Yeast ManyH, Urine Random Sodium 16L Height (Feet): 6 Height (Inches): 0.00 Weight (Pounds): 222 General Appearance: no apparent distress Objective no other changes MIKAELA AYOUB May 28, 2017 15:19
[2017-05-28] MEDS ORDERED: Tamsulosin 0.4mg cap ORAL ONE (15:30)
[2017-05-28 16:00] VITALS: BP 136/76
--- NOTE | 2017-05-28 18:32 | General Progress Note ---
Assessment/Plan Assessment/Plan IMPRESSION/PLAN 1. Leukocytosis 2/2 sepsis. ID following 2. Thrombocytopenia, multifactorial. The patient has a history of liver disease. Platelet goal is above 20K --> Give plts if count drops to 10K or if count is 20K and pt febrile 3. Anemia of chronic disease. Watch counts, transfuse if hgb below 7. 4. Anemia of kidney disease. 5. History of alcohol abuse. 6. Alcoholic liver cirrhosis. 7. Bilirubinemia. Subjective Constitutional: Reports: weakness Allergies: Coded Allergies: No Known Allergies (Unverified , 04/29/17) All Systems: reviewed and negative except above Subjective no events overnight, still weak and has difficulty speaking Objective Last 24 Hour Vital Signs Date Time Temp Pulse Resp B/P (MAP) Pulse Ox O2 Delivery O2 Flow Rate FiO2 05/28/17 16:00 97.4 88 20 136/76 96 Nasal Cannula 3.0 05/28/17 16:00 88 05/28/17 12:00 97.5 90 21 122/69 95 Room Air 05/28/17 11:41 90 05/28/17 08:00 97.5 94 20 137/63 95 Nasal Cannula 3.0 05/28/17 07:27 79 05/28/17 06:35 Nasal Cannula 2.0 28 05/28/17 06:35 96 Nasal Cannula 2.0 28 05/28/17 06:35 82 18 Nasal Cannula 2.0 28 05/28/17 04:00 83 05/28/17 04:00 97.7 90 24 119/64 97 Nasal Cannula 4.0 05/28/17 00:06 97.4 83 24 127/73 97 Nasal Cannula 4.0 05/28/17 00:00 83 05/27/17 20:00 97.5 86 19 129/59 98 Nasal Cannula 2.0 05/27/17 19:47 89 05/27/17 19:30 Nasal Cannula 2.0 28 05/27/17 19:30 97 Nasal Cannula 2.0 28 05/27/17 19:30 86 18 Nasal Cannula 2.0 28 Intake and Output 05/28/17 05/29/17 19:00 07:00 Intake Total 1865.0 ml Output Total 600 ml Balance 1265.0 ml Intake Oral 1060 ml IV Total 805.0 ml Output Urine Total 600 ml # Bowel Movements 6 Laboratory Tests 05/28/17 03:50: White Blood Count 16.6H, Red Blood Count 2.26L, Hemoglobin 8.4L, Hematocrit 26.5L, Mean Corpuscular Volume 118H, Mean Corpuscular Hemoglobin 37.4H, Mean Corpuscular Hemoglobin Concent 31.8L, Red Cell Distribution Width 16.6H, Platelet Count 92L, Mean Platelet Volume 6.8, Neutrophils (%) (Auto) , Lymphocytes (%) (Auto) , Monocytes (%) (Auto) , Eosinophils (%) (Auto) , Basophils (%) (Auto) , Differential Total Cells Counted 100, Neutrophils % ( Manual) 95H, Lymphocytes % (Manual) 2L, Monocytes % (Manual) 3, Eosinophils % ( Manual) 0, Basophils % (Manual) 0, Band Neutrophils 0, Platelet Estimate DecreasedL, Platelet Morphology Normal, Hypochromasia 2+, Anisocytosis 1+, Macrocytosis 3+, Sodium Level 144, Potassium Level 3.3L, Chloride Level 112H, Carbon Dioxide Level 21, Anion Gap 11, Blood Urea Nitrogen 49H, Creatinine 2.5H , Estimat Glomerular Filtration Rate 28.7, Glucose Level 147H, Uric Acid 5.9, Calcium Level 7.3L, Phosphorus Level 4.1, Magnesium Level 1.7L, Total Bilirubin 14.7H, Direct Bilirubin 11.9H, Gamma Glutamyl Transpeptidase 361H, Aspartate Amino Transf (AST/SGOT) 80H, Alanine Aminotransferase (ALT/SGPT) 39, Alkaline Phosphatase 414H, Total Protein 4.2L, Albumin 1.6L, Globulin 2.6, Albumin/ Globulin Ratio 0.6L 05/28/17 09:00: Urine Color Brown, Urine Appearance Slightly cloudy, Urine pH 5, Urine Specific [place] 1.015, Urine Protein 2+H, Urine Glucose (UA) Negative, Urine Ketones Negative, Urine Occult Blood 1+H, Urine Nitrite Negative, Urine Bilirubin 2+H, Urine Ictotest Positive, Urine Urobilinogen 1H, Urine Leukocyte Esterase 1+H, Urine RBC 2-4H, Urine WBC 2-4, Urine Squamous Epithelial Cells Occasional, Urine Bacteria Few, Urine Yeast ManyH, Urine Random Sodium 16L Height (Feet): 6 Height (Inches): 0.00 Weight (Pounds): 222 General Appearance: no apparent distress EENT: normal ENT inspection Neck: normal alignment Cardiovascular: normal rate Abdomen: non tender Extremities: non-tender Skin: normal pigmentation Joshua Hurley May 28, 2017 18:32
[2017-05-28 20:00] VITALS: BP 123/71
[2017-05-28] MEDS: Tamsulosin 0.4mg cap ORAL SCH (21:19)
[2017-05-28] MEDS ORDERED: Tubing IV Secondary IV ONE (21:20)
--- NOTE | 2017-05-28 22:25 | Consultation ---
History of Present Illness General Date patient seen: May 27, 2017 Chief Complaint: Generalized Weakness Present Illness HPI 42-year-old white man who was recently admitted a month ago to [facility] with liver failure due to alcohol abuse. the pt is confused was started on librium for anxiety the pt has not been drinking after dc. will dc librium and start ativan to bypass liver Allergies: Coded Allergies: No Known Allergies (Unverified , 04/29/17) Medication History Scheduled Cholecalciferol (Vitamin D3)* (Vitamin D*), 1,000 UNIT ORAL DAILY, (Reported) Lactulose (Lactulose*), 30 ML ORAL DAILY, (Reported) Midodrine (Midodrine HCl), 10 MG ORAL THREE TIMES A DAY, (Reported) Octreotide Acetate (Octreotide Acetate), 100 MCG IJ Q8HR, (Reported) Thiamine Hcl (Vitamin B1*), 100 MG ORAL DAILY, (Reported) Scheduled PRN Albuterol Sulfate (Proventil Hfa), 6.7 GM IH BID PRN for Shortness of Breath, ( Reported) Eucerin (Eucerin Creme), 1 APPLIC TOPIC ONCE A WEEK PRN for eczema, (Reported) Patient History Healthcare decision maker Resuscitation status Full Code Advanced Directive on File No Physical Exam Last 24 Hour Vital Signs Date Time Temp Pulse Resp B/P (MAP) Pulse Ox O2 Delivery O2 Flow Rate FiO2 05/28/17 21:39 95 Nasal Cannula 2.0 28 05/28/17 21:39 Nasal Cannula 2.0 28 05/28/17 21:30 85 20 Nasal Cannula 2.0 28 05/28/17 20:00 98.0 94 24 123/71 95 Nasal Cannula 2.0 05/28/17 16:00 97.4 88 20 136/76 96 Nasal Cannula 3.0 05/28/17 16:00 88 05/28/17 12:00 97.5 90 21 122/69 95 Room Air 05/28/17 11:41 90 05/28/17 08:00 97.5 94 20 137/63 95 Nasal Cannula 3.0 05/28/17 07:27 79 05/28/17 06:35 Nasal Cannula 2.0 28 05/28/17 06:35 96 Nasal Cannula 2.0 28 05/28/17 06:35 82 18 Nasal Cannula 2.0 28 05/28/17 04:00 83 05/28/17 04:00 97.7 90 24 119/64 97 Nasal Cannula 4.0 05/28/17 00:06 97.4 83 24 127/73 97 Nasal Cannula 4.0 05/28/17 00:00 83 Intake and Output 05/28/17 05/29/17 19:00 07:00 Intake Total 1865.0 ml Output Total 600 ml Balance 1265.0 ml Intake Oral 1060 ml IV Total 805.0 ml Output Urine Total 600 ml # Bowel Movements 6 Laboratory Tests Test 05/28/17 03:50 05/28/17 09:00 White Blood Count 16.6 K/UL (4.8-10.8) H Red Blood Count 2.26 M/UL (4.70-6.10) L Hemoglobin 8.4 G/DL (14.2-18.0) L Hematocrit 26.5 % (42.0-52.0) L Mean Corpuscular Volume 118 FL (80-99) H Mean Corpuscular Hemoglobin 37.4 PG (27.0-31.0) H Mean Corpuscular Hemoglobin Concent 31.8 G/DL (32.0-36.0) L Red Cell Distribution Width 16.6 % (11.6-14.8) H Platelet Count 92 K/UL (150-450) L Mean Platelet Volume 6.8 FL (6.5-10.1) Neutrophils (%) (Auto) % (45.0-75.0) Lymphocytes (%) (Auto) % (20.0-45.0) Monocytes (%) (Auto) % (1.0-10.0) Eosinophils (%) (Auto) % (0.0-3.0) Basophils (%) (Auto) % (0.0-2.0) Differential Total Cells Counted 100 Neutrophils % (Manual) 95 % (45-75) H Lymphocytes % (Manual) 2 % (20-45) L Monocytes % (Manual) 3 % (1-10) Eosinophils % (Manual) 0 % (0-3) Basophils % (Manual) 0 % (0-2) Band Neutrophils 0 % (0-8) Platelet Estimate Decreased L Platelet Morphology Normal Hypochromasia 2+ Anisocytosis 1+ Macrocytosis 3+ Sodium Level 144 MMOL/L (136-145) Potassium Level 3.3 MMOL/L (3.5-5.1) L Chloride Level 112 MMOL/L (98-107) H Carbon Dioxide Level 21 MMOL/L (21-32) Anion Gap 11 mmol/L (5-15) Blood Urea Nitrogen 49 mg/dL (7-18) H Creatinine 2.5 MG/DL (0.55-1.30) H Estimat Glomerular Filtration Rate 28.7 mL/min (>60) Glucose Level 147 MG/DL (74-106) H Uric Acid 5.9 MG/DL (2.6-7.2) Calcium Level 7.3 MG/DL (8.5-10.1) L Phosphorus Level 4.1 MG/DL (2.5-4.9) Magnesium Level 1.7 MG/DL (1.8-2.4) L Total Bilirubin 14.7 MG/DL (0.2-1.0) H Direct Bilirubin 11.9 MG/DL (0.0-0.3) H Gamma Glutamyl Transpeptidase 361 U/L (5-85) H Aspartate Amino Transf (AST/SGOT) 80 U/L (15-37) H Alanine Aminotransferase (ALT/SGPT) 39 U/L (12-78) Alkaline Phosphatase 414 U/L (46-116) H Total Protein 4.2 G/DL (6.4-8.2) L Albumin 1.6 G/DL (3.4-5.0) L Globulin 2.6 g/dL Albumin/Globulin Ratio 0.6 (1.0-2.7) L Urine Color Brown Urine Appearance Slightly cloudy Urine pH 5 (4.5-8.0) Urine Specific [place] 1.015 (1.005-1.035) Urine Protein 2+ (NEGATIVE) H Urine Glucose (UA) Negative (NEGATIVE) Urine Ketones Negative (NEGATIVE) Urine Occult Blood 1+ (NEGATIVE) H Urine Nitrite Negative (NEGATIVE) Urine Bilirubin 2+ (NEGATIVE) H Urine Ictotest Positive Urine Urobilinogen 1 MG/DL (0.0-1.0) H Urine Leukocyte Esterase 1+ (NEGATIVE) H Urine RBC 2-4 /HPF (0 - 0) H Urine WBC 2-4 /HPF (0 - 0) Urine Squamous Epithelial Cells Occasional /LPF Urine Bacteria Few /HPF (NONE) Urine Yeast Many /HPF (NONE) H Urine Random Sodium 16 MEQ/L (20-110) L Height (Feet): 6 Height (Inches): 0.00 Weight (Pounds): 222 Medications Current Medications Medications (Trade) Dose Ordered Sig/Leonard Route PRN Reason Start Time Stop Time Status Last Admin Dose Admin Albumin Human 100 ml @ 100 mls/hr ONCE ONCE IV 05/29/17 10:00 05/29/17 10:59 Albuterol Sulfate (Proventil MDI) 2 puff BIDPRN PRN INH Shortness of Breath 05/24/17 21:45 06/23/17 21:44 Clotrimazole (Lotrimin) 1 applic EVERY 12 HOURS TOPIC 05/25/17 14:00 06/24/17 13:59 05/28/17 21:20 Dextrose/Sodium Chloride 1,000 ml @ 100 mls/hr Q10H IV 05/28/17 15:00 06/27/17 14:59 05/28/17 15:30 Midodrine (Pro-Amatine) 10 mg THREE TIMES A DAY ORAL 05/25/17 09:00 06/24/17 08:59 05/28/17 18:19 Mirtazapine (Remeron) 15 mg BEDTIME ORAL 05/27/17 21:00 06/26/17 20:59 05/28/17 21:20 Octreotide Acetate (SandoSTATIN) 100 mcg Q8HR SUBQ 05/26/17 22:00 06/25/17 21:59 05/28/17 21:19 Piperacillin/ Tazobactam/ Dextrose 50 ml @ 12.5 mls/hr Q8HR@0400,1200,2000 IVPB 05/25/17 04:00 06/01/17 03:59 05/28/17 21:19 Prednisone (predniSONE) 40 mg DAILY ORAL 05/27/17 14:30 06/26/17 14:29 05/28/17 08:46 Tamsulosin HCl (Flomax) 0.4 mg BID ORAL 05/28/17 22:00 06/27/17 21:59 05/28/17 21:19 Thiamine HCl (Vitamin B1) 100 mg DAILY ORAL 05/25/17 09:00 06/24/17 08:59 05/28/17 08:46 Vitamin D (Vitamin D) 1,000 intlu DAILY ORAL 05/25/17 09:00 06/24/17 08:59 05/28/17 08:46 Trino Kirby M.D. May 28, 2017 22:25
[2017-05-29 00:42] VITALS: BP 121/72
[2017-05-29] MEDS: D5NS 1,000 ML IV SCH ×3 (01:00→21:09)
[2017-05-29 04:00] VITALS: BP 123/68
[2017-05-29] MEDS: Zosyn 3.375gm/50ml Premix 50 ML IVPB SCH ×3 (04:06→20:44)
[2017-05-29 05:35] LABS: MEAN CORPUSCULAR HEMOGLOBIN 35.3 PG (27.0-31.0); MEAN CORPUSCULAR HGB CONC 29.8 G/DL (32.0-36.0); MEAN CORPUSCULAR VOLUME 118 FL (80-99); MEAN PLATELET VOLUME 6.6 FL (6.5-10.1); PLATELET COUNT 93 K/UL (150-450); RED BLOOD COUNT 2.17 M/UL (4.70-6.10); RED CELL DISTRIBUTION WIDTH 15.7 % (11.6-14.8)
[2017-05-29 06:19] LABS: AMMONIA 73 umol/L (11.2-31.7)
[2017-05-29] MEDS: SandoSTATIN 100mcg/ml amp SUBQ SCH ×3 (06:20→21:37)
[2017-05-29 06:28] LABS: ALANINE AMINOTRANSFERASE 47 U/L (12-78); ALBUMIN/GLOBULIN RATIO 0.7 (1.0-2.7); ANION GAP 15 mmol/L (5-15); ASPARTATE AMINO TRANSFERASE 83 U/L (15-37); CALCIUM 7.7 MG/DL (8.5-10.1); CARBON DIOXIDE 19 MMOL/L (21-32); CHLORIDE 111 MMOL/L (98-107); CREATININE 1.6 MG/DL (0.55-1.30); GLOMERULAR FILTRATION RATE 48.1 mL/min (>60); POTASSIUM 3.2 MMOL/L (3.5-5.1); SODIUM 145 MMOL/L (136-145); TOTAL PROTEIN 4.5 G/DL (6.4-8.2)
[2017-05-29 07:06] LABS: BILIRUBIN,DIRECT 10.7 MG/DL (0.0-0.3)
[2017-05-29 07:59] VITALS: BP 125/56
[2017-05-29] MEDS: Midodrine 10mg tab ORAL SCH ×3 (09:11→17:31)
[2017-05-29] MEDS: Thiamine 100mg tab ORAL SCH (09:12)
[2017-05-29] MEDS: Vitamin D 1000 IU Tab ORAL SCH (09:12)
[2017-05-29] MEDS: Tamsulosin 0.4mg cap ORAL SCH ×2 (09:12→17:31)
[2017-05-29 09:29] LABS: BAND NEUTROPHILS % (MANUAL) 0 % (0-8); BASOPHILS % (MANUAL) 0 % (0-2); EOSINOPHILS % (MANUAL) 0 % (0-3); HYPOCHROMASIA 3+; LYMPHOCYTES % (MANUAL) 2 % (20-45); NEUTROPHILS % (MANUAL) 93 % (45-75); PLATELET ESTIMATE DECREASED; TOTAL CELLS COUNTED 100
[2017-05-29 09:30] LABS: ANISOCYTOSIS 1+; MACROCYTES 3+; PLATELET MORPHOLOGY NORMAL
--- NOTE | 2017-05-29 10:57 | GI Progress Note ---
Assessment/Plan Problems: (1) Renal failure (ARF), acute on chronic ICD Codes: N17.9 - Acute kidney failure, unspecified; N18.9 - Chronic kidney disease, unspecified SNOMED: 592976257 (2) Ascites due to alcoholic cirrhosis ICD Codes: K70.31 - Alcoholic cirrhosis of liver with ascites SNOMED: 5269926095454937 (3) Jaundice of recent onset ICD Codes: R17 - Unspecified jaundice SNOMED: 29189565 (4) Leukocytosis ICD Codes: D72.829 - Elevated white blood cell count, unspecified SNOMED: 742472309, 435784298 (5) Sepsis ICD Codes: A41.9 - Sepsis, unspecified organism SNOMED: 28034815 (6) Liver cirrhosis, alcoholic ICD Codes: K70.30 - Alcoholic cirrhosis of liver without ascites SNOMED: 877978803, 849023599 Status: stable, unchanged Status Narrative Discussed with Dr. Daly. Assessment/Plan Assessment - Alcoholic liver disease - liver failure - MELD score 27 - leukocytosis - Edema - poor prognosis OB positive Recommendation prednisone daily monitor H&H, prn transfusion if Hgb < 7.0 dc lactulose, monitor ammonia electrolyte replacement nystatin abx per ID fu ultrasound guided paracentesis >> r/o SBP albumin IV prn octreotide subq + midodrine fu labs per consultants Subjective Subjective patient is more alert today Objective Last 24 Hour Vital Signs Date Time Temp Pulse Resp B/P (MAP) Pulse Ox O2 Delivery O2 Flow Rate FiO2 05/29/17 08:55 Nasal Cannula 2.0 28 05/29/17 08:55 96 Nasal Cannula 2.0 05/29/17 08:53 87 20 Nasal Cannula 2.0 28 05/29/17 08:00 81 05/29/17 07:59 97.0 89 18 125/56 97 Nasal Cannula 2.0 05/29/17 04:00 97.7 87 20 123/68 95 Nasal Cannula 2.0 05/29/17 04:00 101 05/29/17 00:42 97.7 97 24 121/72 95 Nasal Cannula 2.0 05/29/17 00:00 82 05/28/17 21:39 95 Nasal Cannula 2.0 28 05/28/17 21:39 Nasal Cannula 2.0 28 05/28/17 21:30 85 20 Nasal Cannula 2.0 28 05/28/17 20:00 93 05/28/17 20:00 98.0 94 24 123/71 95 Nasal Cannula 2.0 05/28/17 16:00 97.4 88 20 136/76 96 Nasal Cannula 3.0 05/28/17 16:00 88 05/28/17 12:00 97.5 90 21 122/69 95 Room Air 05/28/17 11:41 90 Intake and Output 05/29/17 05/30/17 19:00 07:00 Intake Total 375.0 ml Balance 375.0 ml IV Total 375.0 ml # Bowel Movements 1 Laboratory Tests Test 05/29/17 04:35 White Blood Count 20.0 K/UL (4.8-10.8) H Red Blood Count 2.17 M/UL (4.70-6.10) L Hemoglobin 7.7 G/DL (14.2-18.0) L Hematocrit 25.7 % (42.0-52.0) L Mean Corpuscular Volume 118 FL (80-99) H Mean Corpuscular Hemoglobin 35.3 PG (27.0-31.0) H Mean Corpuscular Hemoglobin Concent 29.8 G/DL (32.0-36.0) L Red Cell Distribution Width 15.7 % (11.6-14.8) H Platelet Count 93 K/UL (150-450) L Mean Platelet Volume 6.6 FL (6.5-10.1) Neutrophils (%) (Auto) % (45.0-75.0) Lymphocytes (%) (Auto) % (20.0-45.0) Monocytes (%) (Auto) % (1.0-10.0) Eosinophils (%) (Auto) % (0.0-3.0) Basophils (%) (Auto) % (0.0-2.0) Differential Total Cells Counted 100 Neutrophils % (Manual) 93 % (45-75) H Lymphocytes % (Manual) 2 % (20-45) L Monocytes % (Manual) 5 % (1-10) Eosinophils % (Manual) 0 % (0-3) Basophils % (Manual) 0 % (0-2) Band Neutrophils 0 % (0-8) Platelet Estimate Decreased L Platelet Morphology Normal Hypochromasia 3+ Anisocytosis 1+ Macrocytosis 3+ Sodium Level 145 MMOL/L (136-145) Potassium Level 3.2 MMOL/L (3.5-5.1) L Chloride Level 111 MMOL/L (98-107) H Carbon Dioxide Level 19 MMOL/L (21-32) L Anion Gap 15 mmol/L (5-15) Blood Urea Nitrogen 44 mg/dL (7-18) H Creatinine 1.6 MG/DL (0.55-1.30) H Estimat Glomerular Filtration Rate 48.1 mL/min (>60) Glucose Level 155 MG/DL (74-106) H Calcium Level 7.7 MG/DL (8.5-10.1) L Total Bilirubin 15.0 MG/DL (0.2-1.0) H Direct Bilirubin 10.7 MG/DL (0.0-0.3) H Aspartate Amino Transf (AST/SGOT) 83 U/L (15-37) H Alanine Aminotransferase (ALT/SGPT) 47 U/L (12-78) Alkaline Phosphatase 415 U/L (46-116) H Ammonia 73 umol/L (11.2-31.7) H Total Protein 4.5 G/DL (6.4-8.2) L Albumin 1.9 G/DL (3.4-5.0) L Globulin 2.6 g/dL Albumin/Globulin Ratio 0.7 (1.0-2.7) L Height (Feet): 6 Height (Inches): 0.00 Weight (Pounds): 222 General Appearance: no apparent distress, alert Cardiovascular: normal rate Respiratory/Chest: normal breath sounds, no respiratory distress Abdominal Exam: normal bowel sounds, non tender, soft Extremities: non-tender Danay Grady N.P. May 29, 2017 10:57
[2017-05-29 12:00] VITALS: BP 116/70
[2017-05-29] MEDS: Nystatin Powder 100,000 units/gm 15gm TOPIC SCH ×2 (13:53→17:31)
--- NOTE | 2017-05-29 14:09 | Diagnostic Imaging Report ---
Indication: Dyspnea Comparison: 05/26/17 A single view chest radiograph was obtained. Findings: Interstitial edema suspected. Heart size is stable. Lung volumes are low. Right perihilar infiltrate suspected. Impression: No significant change Suspected interstitial edema/CHF. Superimposed right perihilar infiltrate versus atelectasis again demonstrated.
--- NOTE | 2017-05-29 14:46 | Infectious Diseases Prog Note ---
Assessment/Plan Problems: (1) HCAP (healthcare-associated pneumonia) Assessment & Plan: with B/L infiltrates , CHF VS pneumonia , improving on repeated CXR, continue zosyn for 7 days total , continue to monitor CXR (2) Sepsis Assessment & Plan: with significant leukocytosis, now increasing due to steroids , on zosyn , blood culture grew coag negative staph from one bottle most likely contaminant , monitor off vancomycin (3) Ascites due to alcoholic cirrhosis Assessment & Plan: with anasarca, recommend diuresis, and daily weight monitor , S/P paracentesis , fluids culture is negative (4) Liver cirrhosis, alcoholic Assessment & Plan: continue supportive care, GI is following (5) QAMAR (acute kidney injury) Assessment & Plan: suspect hepatorenal, monitor urine output, and avoid nephrotoxic medicine, renal service is following (6) Acute respiratory failure Assessment & Plan: improving , due to the above , off BIPAP, on nasal canula , monitor ABG, and CXR, pulmonary is following Subjective Constitutional: Reports: fatigue, anorexia HEENT: Reports: no symptoms Respiratory: Reports: no symptoms Breasts: Reports: no symptoms Cardiovascular: Reports: no symptoms Gastrointestinal/Abdominal: Reports: diarrhea, bloating Genitourinary: Reports: no symptoms Neurologic: Reports: confusion, other - delerious Psychiatric: Reports: no symptoms Skin: Reports: other - jaundiced Endocrine: Reports: no symptoms Hematologic: Reports: no symptoms Musculoskeletal: Reports: swelling Allergies: Coded Allergies: No Known Allergies (Unverified , 04/29/17) Objective Vital Signs Last 24 Hour Vital Signs Date Time Temp Pulse Resp B/P (MAP) Pulse Ox O2 Delivery O2 Flow Rate FiO2 05/29/17 12:19 79 05/29/17 12:00 98.0 81 18 116/70 98 Nasal Cannula 2.0 05/29/17 08:55 Nasal Cannula 2.0 28 05/29/17 08:55 96 Nasal Cannula 2.0 28 05/29/17 08:53 87 20 Nasal Cannula 2.0 28 05/29/17 08:00 81 05/29/17 07:59 97.0 89 18 125/56 97 Nasal Cannula 2.0 05/29/17 04:00 97.7 87 20 123/68 95 Nasal Cannula 2.0 05/29/17 04:00 101 05/29/17 00:42 97.7 97 24 121/72 95 Nasal Cannula 2.0 05/29/17 00:00 82 05/28/17 21:39 95 Nasal Cannula 2.0 28 05/28/17 21:39 Nasal Cannula 2.0 28 05/28/17 21:30 85 20 Nasal Cannula 2.0 28 05/28/17 20:00 93 05/28/17 20:00 98.0 94 24 123/71 95 Nasal Cannula 2.0 05/28/17 16:00 97.4 88 20 136/76 96 Nasal Cannula 3.0 05/28/17 16:00 88 Height (Feet): 6 Height (Inches): 0.00 Weight (Pounds): 222 General Appearance: no acute distress, other - anasarcic with jaundice HEENT: normocephalic, atraumatic, anicteric, mucous membranes moist Respiratory/Chest: chest wall non-tender, lungs clear, normal breath sounds, no respiratory distress, no accessory muscle use Cardiovascular: normal peripheral pulses, normal rate, regular rhythm, no gallop/murmur, no JVD Abdomen: normal bowel sounds, soft, non tender, no organomegaly, non distended , no mass, no scars Extremities: no cyanosis, no clubbing Skin: no rash, no lesions Neurologic/Psychiatric: alert, oriented x 3 Lymphatic: no neck adenopathy, no groin adenopathy Musculoskeletal: normal muscle bulk Microbiology Date/Time Source Procedure Growth Status 05/26/17 16:47 Abdominal Fluid Gram Stain - Final Resulted 05/26/17 16:47 Abdominal Fluid Body Fluid Culture - Preliminary NO GROWTH AFTER 72 HOURS Resulted Laboratory Tests Test 05/29/17 04:35 White Blood Count 20.0 K/UL (4.8-10.8) H Red Blood Count 2.17 M/UL (4.70-6.10) L Hemoglobin 7.7 G/DL (14.2-18.0) L Hematocrit 25.7 % (42.0-52.0) L Mean Corpuscular Volume 118 FL (80-99) H Mean Corpuscular Hemoglobin 35.3 PG (27.0-31.0) H Mean Corpuscular Hemoglobin Concent 29.8 G/DL (32.0-36.0) L Red Cell Distribution Width 15.7 % (11.6-14.8) H Platelet Count 93 K/UL (150-450) L Mean Platelet Volume 6.6 FL (6.5-10.1) Neutrophils (%) (Auto) % (45.0-75.0) Lymphocytes (%) (Auto) % (20.0-45.0) Monocytes (%) (Auto) % (1.0-10.0) Eosinophils (%) (Auto) % (0.0-3.0) Basophils (%) (Auto) % (0.0-2.0) Differential Total Cells Counted 100 Neutrophils % (Manual) 93 % (45-75) H Lymphocytes % (Manual) 2 % (20-45) L Monocytes % (Manual) 5 % (1-10) Eosinophils % (Manual) 0 % (0-3) Basophils % (Manual) 0 % (0-2) Band Neutrophils 0 % (0-8) Platelet Estimate Decreased L Platelet Morphology Normal Hypochromasia 3+ Anisocytosis 1+ Macrocytosis 3+ Sodium Level 145 MMOL/L (136-145) Potassium Level 3.2 MMOL/L (3.5-5.1) L Chloride Level 111 MMOL/L (98-107) H Carbon Dioxide Level 19 MMOL/L (21-32) L Anion Gap 15 mmol/L (5-15) Blood Urea Nitrogen 44 mg/dL (7-18) H Creatinine 1.6 MG/DL (0.55-1.30) H Estimat Glomerular Filtration Rate 48.1 mL/min (>60) Glucose Level 155 MG/DL (74-106) H Calcium Level 7.7 MG/DL (8.5-10.1) L Total Bilirubin 15.0 MG/DL (0.2-1.0) H Direct Bilirubin 10.7 MG/DL (0.0-0.3) H Aspartate Amino Transf (AST/SGOT) 83 U/L (15-37) H Alanine Aminotransferase (ALT/SGPT) 47 U/L (12-78) Alkaline Phosphatase 415 U/L (46-116) H Ammonia 73 umol/L (11.2-31.7) H Total Protein 4.5 G/DL (6.4-8.2) L Albumin 1.9 G/DL (3.4-5.0) L Globulin 2.6 g/dL Albumin/Globulin Ratio 0.7 (1.0-2.7) L Current Medications Medications (Trade) Dose Ordered Sig/Leonard Route PRN Reason Start Time Stop Time Status Last Admin Dose Admin Albuterol Sulfate (Proventil MDI) 2 puff BIDPRN PRN INH Shortness of Breath 05/24/17 21:45 06/23/17 21:44 Dextrose/Sodium Chloride 1,000 ml @ 100 mls/hr Q10H IV 05/28/17 15:00 06/27/17 14:59 05/29/17 11:49 Midodrine (Pro-Amatine) 10 mg THREE TIMES A DAY ORAL 05/25/17 09:00 06/24/17 08:59 05/29/17 13:53 Mirtazapine (Remeron) 15 mg BEDTIME ORAL 05/27/17 21:00 06/26/17 20:59 05/28/17 21:20 Nystatin (Nystop Powder) 1 applic THREE TIMES A DAY TOPIC 05/29/17 13:00 06/28/17 12:59 05/29/17 13:53 Octreotide Acetate (SandoSTATIN) 100 mcg Q8HR SUBQ 05/26/17 22:00 06/25/17 21:59 05/29/17 13:53 Piperacillin/ Tazobactam/ Dextrose 50 ml @ 12.5 mls/hr Q8HR@0400,1200,2000 IVPB 05/25/17 04:00 06/01/17 03:59 05/29/17 11:49 Potassium Chloride (KCl 10% 40mEq Oral solution) 40 meq ONCE ONCE ORAL 05/29/17 15:00 05/29/17 15:01 Prednisone (predniSONE) 40 mg DAILY ORAL 05/27/17 14:30 06/26/17 14:29 05/29/17 09:12 Rifaximin (Xifaxan) 550 mg EVERY 12 HOURS ORAL 05/29/17 09:30 06/05/17 09:29 05/29/17 09:15 Tamsulosin HCl (Flomax) 0.4 mg BID ORAL 05/28/17 22:00 06/27/17 21:59 05/29/17 09:12 Thiamine HCl (Vitamin B1) 100 mg DAILY ORAL 05/25/17 09:00 12/5/17 08:59 05/29/17 09:12 Vitamin D (Vitamin D) 1,000 intlu DAILY ORAL 05/25/17 09:00 06/24/17 08:59 05/29/17 09:12 Janae Lopez M.D. May 29, 2017 14:46
[2017-05-29] MEDS ORDERED: KCl 10% 40mEq/30ml liquid ORAL ONE (15:00)
--- NOTE | 2017-05-29 15:42 | Pulmonology Progress Note ---
Assessment/Plan Assessment/Plan ASSESSMENT: Respiratory distress, resolved possible pneumonia volume overload decompensated liver failure cirrhosis ascites altered mental status. PLAN: CXR w perihilar infiltrates not SOB, O2 n/c still confused Subjective Respiratory: Denies: shortness of breath Allergies: Coded Allergies: No Known Allergies (Unverified , 04/29/17) Objective Last 24 Hour Vital Signs Date Time Temp Pulse Resp B/P (MAP) Pulse Ox O2 Delivery O2 Flow Rate FiO2 05/29/17 12:19 79 05/29/17 12:00 98.0 81 18 116/70 98 Nasal Cannula 2.0 05/29/17 08:55 Nasal Cannula 2.0 28 05/29/17 08:55 96 Nasal Cannula 2.0 28 05/29/17 08:53 87 20 Nasal Cannula 2.0 28 05/29/17 08:00 81 05/29/17 07:59 97.0 89 18 125/56 97 Nasal Cannula 2.0 05/29/17 04:00 97.7 87 20 123/68 95 Nasal Cannula 2.0 05/29/17 04:00 101 05/29/17 00:42 97.7 97 24 121/72 95 Nasal Cannula 2.0 05/29/17 00:00 82 05/28/17 21:39 95 Nasal Cannula 2.0 28 05/28/17 21:39 Nasal Cannula 2.0 28 05/28/17 21:30 85 20 Nasal Cannula 2.0 28 05/28/17 20:00 93 05/28/17 20:00 98.0 94 24 123/71 95 Nasal Cannula 2.0 05/28/17 16:00 97.4 88 20 136/76 96 Nasal Cannula 3.0 05/28/17 16:00 88 Intake and Output 05/29/17 05/30/17 19:00 07:00 Intake Total 725.0 ml Balance 725.0 ml Intake Oral 300 ml IV Total 425.0 ml # Bowel Movements 3 Objective jaundice and scleral icterus General Appearance: no acute distress Respiratory/Chest: lungs clear Cardiovascular: normal rate Microbiology Date/Time Source Procedure Growth Status 05/26/17 16:47 Abdominal Fluid Gram Stain - Final Resulted 05/26/17 16:47 Abdominal Fluid Body Fluid Culture - Preliminary NO GROWTH AFTER 72 HOURS Resulted Laboratory Tests 05/29/17 04:35: White Blood Count 20.0H, Red Blood Count 2.17L, Hemoglobin 7.7L, Hematocrit 25.7L, Mean Corpuscular Volume 118H, Mean Corpuscular Hemoglobin 35.3H, Mean Corpuscular Hemoglobin Concent 29.8L, Red Cell Distribution Width 15.7H, Platelet Count 93L, Mean Platelet Volume 6.6, Neutrophils (%) (Auto) , Lymphocytes (%) (Auto) , Monocytes (%) (Auto) , Eosinophils (%) (Auto) , Basophils (%) (Auto) , Differential Total Cells Counted 100, Neutrophils % ( Manual) 93H, Lymphocytes % (Manual) 2L, Monocytes % (Manual) 5, Eosinophils % ( Manual) 0, Basophils % (Manual) 0, Band Neutrophils 0, Platelet Estimate DecreasedL, Platelet Morphology Normal, Hypochromasia 3+, Anisocytosis 1+, Macrocytosis 3+, Sodium Level 145, Potassium Level 3.2L, Chloride Level 111H, Carbon Dioxide Level 19L, Anion Gap 15, Blood Urea Nitrogen 44H, Creatinine 1.6H , Estimat Glomerular Filtration Rate 48.1, Glucose Level 155H, Calcium Level 7.7L, Total Bilirubin 15.0H, Direct Bilirubin 10.7H, Aspartate Amino Transf (AST /SGOT) 83H, Alanine Aminotransferase (ALT/SGPT) 47, Alkaline Phosphatase 415H, Ammonia 73H, Total Protein 4.5L, Albumin 1.9L, Globulin 2.6, Albumin/Globulin Ratio 0.7L Current Medications Medications (Trade) Dose Ordered Sig/Leonard Route PRN Reason Start Time Stop Time Status Last Admin Dose Admin Albuterol Sulfate (Proventil MDI) 2 puff BIDPRN PRN INH Shortness of Breath 05/24/17 21:45 06/23/17 21:44 Dextrose/Sodium Chloride 1,000 ml @ 100 mls/hr Q10H IV 05/28/17 15:00 06/27/17 14:59 05/29/17 11:49 Midodrine (Pro-Amatine) 10 mg THREE TIMES A DAY ORAL 05/25/17 09:00 06/24/17 08:59 05/29/17 13:53 Mirtazapine (Remeron) 15 mg BEDTIME ORAL 05/27/17 21:00 06/26/17 20:59 05/28/17 21:20 Nystatin (Nystop Powder) 1 applic THREE TIMES A DAY TOPIC 05/29/17 13:00 06/28/17 12:59 05/29/17 13:53 Octreotide Acetate (SandoSTATIN) 100 mcg Q8HR SUBQ 05/26/17 22:00 06/25/17 21:59 05/29/17 13:53 Piperacillin/ Tazobactam/ Dextrose 50 ml @ 12.5 mls/hr Q8HR@0400,1200,2000 IVPB 05/25/17 04:00 06/01/17 03:59 05/29/17 11:49 Prednisone (predniSONE) 40 mg DAILY ORAL 05/27/17 14:30 06/26/17 14:29 05/29/17 09:12 Rifaximin (Xifaxan) 550 mg EVERY 12 HOURS ORAL 05/29/17 09:30 06/05/17 09:29 05/29/17 09:15 Tamsulosin HCl (Flomax) 0.4 mg BID ORAL 05/28/17 22:00 06/27/17 21:59 05/29/17 09:12 Thiamine HCl (Vitamin B1) 100 mg DAILY ORAL 05/25/17 09:00 06/24/17 08:59 05/29/17 09:12 Vitamin D (Vitamin D) 1,000 intlu DAILY ORAL 05/25/17 09:00 06/24/17 08:59 05/29/17 09:12 JAMES NAVARRO May 29, 2017 15:42
[2017-05-29 16:00] VITALS: BP 126/71
--- NOTE | 2017-05-29 16:24 | Nephrology Progress Note ---
Assessment/Plan Problem List: (1) Liver cirrhosis, alcoholic (2) Ascites due to alcoholic cirrhosis (3) Renal failure (ARF), acute on chronic Assessment Renal failure on admit , likely hepatorenal- Cr zaira to 2.5 now back down to 1.6 pneumonia, leukocytosis h/o low Na due to anasarca High K , Kayexelate given Jaundice Anemia low alb Plan Plan: K supplement Antibiotics- avoid nephrotoxics- monitor renal parameters optimize pulmonary and renal and hepatic status as possible. per consultants Subjective ROS Limited/Unobtainable: No Objective Objective Last 24 Hour Vital Signs Date Time Temp Pulse Resp B/P (MAP) Pulse Ox O2 Delivery O2 Flow Rate FiO2 05/29/17 12:19 79 05/29/17 12:00 98.0 81 18 116/70 98 Nasal Cannula 2.0 05/29/17 08:55 Nasal Cannula 2.0 28 05/29/17 08:55 96 Nasal Cannula 2.0 28 05/29/17 08:53 87 20 Nasal Cannula 2.0 28 05/29/17 08:00 81 05/29/17 07:59 97.0 89 18 125/56 97 Nasal Cannula 2.0 05/29/17 04:00 97.7 87 20 123/68 95 Nasal Cannula 2.0 05/29/17 04:00 101 05/29/17 00:42 97.7 97 24 121/72 95 Nasal Cannula 2.0 05/29/17 00:00 82 05/28/17 21:39 95 Nasal Cannula 2.0 28 05/28/17 21:39 Nasal Cannula 2.0 28 05/28/17 21:30 85 20 Nasal Cannula 2.0 28 05/28/17 20:00 93 05/28/17 20:00 98.0 94 24 123/71 95 Nasal Cannula 2.0 Intake and Output 05/29/17 05/30/17 19:00 07:00 Intake Total 725.0 ml Balance 725.0 ml Intake Oral 300 ml IV Total 425.0 ml # Bowel Movements 3 Laboratory Tests 05/29/17 04:35: White Blood Count 20.0H, Red Blood Count 2.17L, Hemoglobin 7.7L, Hematocrit 25.7L, Mean Corpuscular Volume 118H, Mean Corpuscular Hemoglobin 35.3H, Mean Corpuscular Hemoglobin Concent 29.8L, Red Cell Distribution Width 15.7H, Platelet Count 93L, Mean Platelet Volume 6.6, Neutrophils (%) (Auto) , Lymphocytes (%) (Auto) , Monocytes (%) (Auto) , Eosinophils (%) (Auto) , Basophils (%) (Auto) , Differential Total Cells Counted 100, Neutrophils % ( Manual) 93H, Lymphocytes % (Manual) 2L, Monocytes % (Manual) 5, Eosinophils % ( Manual) 0, Basophils % (Manual) 0, Band Neutrophils 0, Platelet Estimate DecreasedL, Platelet Morphology Normal, Hypochromasia 3+, Anisocytosis 1+, Macrocytosis 3+, Sodium Level 145, Potassium Level 3.2L, Chloride Level 111H, Carbon Dioxide Level 19L, Anion Gap 15, Blood Urea Nitrogen 44H, Creatinine 1.6H , Estimat Glomerular Filtration Rate 48.1, Glucose Level 155H, Calcium Level 7.7L, Total Bilirubin 15.0H, Direct Bilirubin 10.7H, Aspartate Amino Transf (AST /SGOT) 83H, Alanine Aminotransferase (ALT/SGPT) 47, Alkaline Phosphatase 415H, Ammonia 73H, Total Protein 4.5L, Albumin 1.9L, Globulin 2.6, Albumin/Globulin Ratio 0.7L Height (Feet): 6 Height (Inches): 0.00 Weight (Pounds): 222 General Appearance: no apparent distress, lethargic Cardiovascular: normal rate Respiratory/Chest: decreased breath sounds Abdomen: distended Objective no other changes MIKAELA AYOUB May 29, 2017 16:24
--- NOTE | 2017-05-29 16:34 | General Progress Note ---
Assessment/Plan Assessment/Plan IMPRESSION/PLAN 1. Leukocytosis 2/2 sepsis. ID following 2. Thrombocytopenia, multifactorial. The patient has a history of liver disease. Platelet goal is above 20K --> Give plts if count drops to 10K or if count is 20K and pt febrile 3. Anemia of chronic disease. Watch counts, transfuse if hgb below 7. --> continue to monitor closely, hgb is downtrending 4. Anemia of kidney disease. 5. History of alcohol abuse. 6. Alcoholic liver cirrhosis. 7. Bilirubinemia. Subjective ROS Limited/Unobtainable: Yes Allergies: Coded Allergies: No Known Allergies (Unverified , 04/29/17) Subjective alert but confused, afebrile Objective Last 24 Hour Vital Signs Date Time Temp Pulse Resp B/P (MAP) Pulse Ox O2 Delivery O2 Flow Rate FiO2 05/29/17 16:31 87 05/29/17 12:19 79 05/29/17 12:00 98.0 81 18 116/70 98 Nasal Cannula 2.0 05/29/17 08:55 Nasal Cannula 2.0 28 05/29/17 08:55 96 Nasal Cannula 2.0 28 05/29/17 08:53 87 20 Nasal Cannula 2.0 28 05/29/17 08:00 81 05/29/17 07:59 97.0 89 18 125/56 97 Nasal Cannula 2.0 05/29/17 04:00 97.7 87 20 123/68 95 Nasal Cannula 2.0 05/29/17 04:00 101 05/29/17 00:42 97.7 97 24 121/72 95 Nasal Cannula 2.0 05/29/17 00:00 82 05/28/17 21:39 95 Nasal Cannula 2.0 28 05/28/17 21:39 Nasal Cannula 2.0 28 05/28/17 21:30 85 20 Nasal Cannula 2.0 28 05/28/17 20:00 93 05/28/17 20:00 98.0 94 24 123/71 95 Nasal Cannula 2.0 Intake and Output 05/29/17 05/30/17 19:00 07:00 Intake Total 725.0 ml Balance 725.0 ml Intake Oral 300 ml IV Total 425.0 ml # Bowel Movements 4 Laboratory Tests 05/29/17 04:35: White Blood Count 20.0H, Red Blood Count 2.17L, Hemoglobin 7.7L, Hematocrit 25.7L, Mean Corpuscular Volume 118H, Mean Corpuscular Hemoglobin 35.3H, Mean Corpuscular Hemoglobin Concent 29.8L, Red Cell Distribution Width 15.7H, Platelet Count 93L, Mean Platelet Volume 6.6, Neutrophils (%) (Auto) , Lymphocytes (%) (Auto) , Monocytes (%) (Auto) , Eosinophils (%) (Auto) , Basophils (%) (Auto) , Differential Total Cells Counted 100, Neutrophils % ( Manual) 93H, Lymphocytes % (Manual) 2L, Monocytes % (Manual) 5, Eosinophils % ( Manual) 0, Basophils % (Manual) 0, Band Neutrophils 0, Platelet Estimate DecreasedL, Platelet Morphology Normal, Hypochromasia 3+, Anisocytosis 1+, Macrocytosis 3+, Sodium Level 145, Potassium Level 3.2L, Chloride Level 111H, Carbon Dioxide Level 19L, Anion Gap 15, Blood Urea Nitrogen 44H, Creatinine 1.6H , Estimat Glomerular Filtration Rate 48.1, Glucose Level 155H, Calcium Level 7.7L, Total Bilirubin 15.0H, Direct Bilirubin 10.7H, Aspartate Amino Transf (AST /SGOT) 83H, Alanine Aminotransferase (ALT/SGPT) 47, Alkaline Phosphatase 415H, Ammonia 73H, Total Protein 4.5L, Albumin 1.9L, Globulin 2.6, Albumin/Globulin Ratio 0.7L Height (Feet): 6 Height (Inches): 0.00 Weight (Pounds): 222 General Appearance: no apparent distress EENT: normal ENT inspection Neck: normal alignment Abdomen: normal bowel sounds Neurologic: water pollution scientist II-XII grossly normal Skin: warm/dry Joshua Hurley May 29, 2017 16:34
--- NOTE | 2017-05-29 19:11 | General Progress Note ---
Assessment/Plan Status: stable Assessment/Plan hepato encephalopathy dc remeron cont ativan risperdal 2mg qhs Subjective Neurologic/Psychiatric: Reports: anxiety, depressed, emotional problems Allergies: Coded Allergies: No Known Allergies (Unverified , 04/29/17) All Systems: reviewed and negative except above Subjective the pt is delusional and hallucinating. the pt is pw waxing and waning of consciousness Objective Last 24 Hour Vital Signs Date Time Temp Pulse Resp B/P (MAP) Pulse Ox O2 Delivery O2 Flow Rate FiO2 05/29/17 18:48 82 18 Nasal Cannula 2.0 28 05/29/17 18:48 98 Nasal Cannula 2.0 28 05/29/17 18:48 Nasal Cannula 2.0 28 05/29/17 16:31 87 05/29/17 16:00 97.1 90 18 126/71 96 Nasal Cannula 2.0 05/29/17 12:19 79 05/29/17 12:00 98.0 81 18 116/70 98 Nasal Cannula 2.0 05/29/17 08:55 Nasal Cannula 2.0 28 05/29/17 08:55 96 Nasal Cannula 2.0 28 05/29/17 08:53 87 20 Nasal Cannula 2.0 28 05/29/17 08:00 81 05/29/17 07:59 97.0 89 18 125/56 97 Nasal Cannula 2.0 05/29/17 04:00 97.7 87 20 123/68 95 Nasal Cannula 2.0 05/29/17 04:00 101 05/29/17 00:42 97.7 97 24 121/72 95 Nasal Cannula 2.0 05/29/17 00:00 82 05/28/17 21:39 95 Nasal Cannula 2.0 28 05/28/17 21:39 Nasal Cannula 2.0 28 05/28/17 21:30 85 20 Nasal Cannula 2.0 28 05/28/17 20:00 93 05/28/17 20:00 98.0 94 24 123/71 95 Nasal Cannula 2.0 Intake and Output 05/29/17 05/30/17 19:00 07:00 Intake Total 1575.0 ml Output Total 250 ml Balance 1325.0 ml Intake Oral 500 ml IV Total 1075.0 ml Output Urine Total 250 ml # Voids 1 # Bowel Movements 4 Laboratory Tests 05/29/17 04:35: White Blood Count 20.0H, Red Blood Count 2.17L, Hemoglobin 7.7L, Hematocrit 25.7L, Mean Corpuscular Volume 118H, Mean Corpuscular Hemoglobin 35.3H, Mean Corpuscular Hemoglobin Concent 29.8L, Red Cell Distribution Width 15.7H, Platelet Count 93L, Mean Platelet Volume 6.6, Neutrophils (%) (Auto) , Lymphocytes (%) (Auto) , Monocytes (%) (Auto) , Eosinophils (%) (Auto) , Basophils (%) (Auto) , Differential Total Cells Counted 100, Neutrophils % ( Manual) 93H, Lymphocytes % (Manual) 2L, Monocytes % (Manual) 5, Eosinophils % ( Manual) 0, Basophils % (Manual) 0, Band Neutrophils 0, Platelet Estimate DecreasedL, Platelet Morphology Normal, Hypochromasia 3+, Anisocytosis 1+, Macrocytosis 3+, Sodium Level 145, Potassium Level 3.2L, Chloride Level 111H, Carbon Dioxide Level 19L, Anion Gap 15, Blood Urea Nitrogen 44H, Creatinine 1.6H , Estimat Glomerular Filtration Rate 48.1, Glucose Level 155H, Calcium Level 7.7L, Total Bilirubin 15.0H, Direct Bilirubin 10.7H, Aspartate Amino Transf (AST /SGOT) 83H, Alanine Aminotransferase (ALT/SGPT) 47, Alkaline Phosphatase 415H, Ammonia 73H, Total Protein 4.5L, Albumin 1.9L, Globulin 2.6, Albumin/Globulin Ratio 0.7L Height (Feet): 6 Height (Inches): 0.00 Weight (Pounds): 222 General Appearance: no apparent distress, alert, confused Neurologic: alert, responsive, disoriented, depressed affect Trino Kirby M.D. May 29, 2017 19:10
[2017-05-29 20:37] VITALS: BP 127/69
[2017-05-29] MEDS ORDERED: LORazepam 1mg tab ORAL PRN (21:15)
[2017-05-30] VITALS: BP 113/64
[2017-05-30 04:00] VITALS: BP 119/63
[2017-05-30] MEDS: Zosyn 3.375gm/50ml Premix 50 ML IVPB SCH ×3 (04:53→20:17)
[2017-05-30 05:41] LABS: MEAN CORPUSCULAR HEMOGLOBIN 35.1 PG (27.0-31.0); MEAN CORPUSCULAR HGB CONC 29.7 G/DL (32.0-36.0); MEAN CORPUSCULAR VOLUME 118 FL (80-99); MEAN PLATELET VOLUME 6.9 FL (6.5-10.1); PLATELET COUNT 80 K/UL (150-450); WHITE BLOOD COUNT 18.7 K/UL (4.8-10.8)
[2017-05-30] MEDS: SandoSTATIN 100mcg/ml amp SUBQ SCH ×3 (05:55→21:07)
[2017-05-30 06:14] LABS: AMMONIA 70 umol/L (11.2-31.7)
[2017-05-30 06:24] LABS: ALANINE AMINOTRANSFERASE 49 U/L (12-78); ALBUMIN/GLOBULIN RATIO 0.8 (1.0-2.7); ANION GAP 11 mmol/L (5-15); ASPARTATE AMINO TRANSFERASE 72 U/L (15-37); CALCIUM 7.3 MG/DL (8.5-10.1); CARBON DIOXIDE 20 MMOL/L (21-32); CHLORIDE 114 MMOL/L (98-107); CREATININE 1.5 MG/DL (0.55-1.30); GLOMERULAR FILTRATION RATE 51.8 mL/min (>60); POTASSIUM 3.2 MMOL/L (3.5-5.1); SODIUM 145 MMOL/L (136-145); TOTAL PROTEIN 4.2 G/DL (6.4-8.2)
[2017-05-30] MEDS: D5NS 1,000 ML IV SCH ×2 (07:07→17:55)
[2017-05-30 08:00] VITALS: BP 112/59
[2017-05-30 08:32] LABS: BAND NEUTROPHILS % (MANUAL) 0 % (0-8); BASOPHILS % (MANUAL) 0 % (0-2); EOSINOPHILS % (MANUAL) 0 % (0-3); LYMPHOCYTES % (MANUAL) 2 % (20-45); NEUTROPHILS % (MANUAL) 97 % (45-75); PLATELET ESTIMATE DECREASED; PLATELET MORPHOLOGY NORMAL; TOTAL CELLS COUNTED 100
[2017-05-30] MEDS ORDERED: KCl 10% 40mEq/30ml liquid ORAL ONE (10:00)
[2017-05-30] MEDS: Vitamin D 1000 IU Tab ORAL SCH (10:16)
[2017-05-30] MEDS: Thiamine 100mg tab ORAL SCH (10:16)
[2017-05-30] MEDS: Midodrine 10mg tab ORAL SCH ×3 (10:17→18:38)
[2017-05-30] MEDS: Tamsulosin 0.4mg cap ORAL SCH ×2 (10:17→17:55)
[2017-05-30] MEDS: Nystatin Powder 100,000 units/gm 15gm TOPIC SCH ×3 (10:20→17:55)
--- NOTE | 2017-05-30 10:52 | Pulmonology Progress Note ---
Assessment/Plan Assessment/Plan ASSESSMENT: Respiratory distress, resolved probable pneumonia volume overload decompensated liver failure cirrhosis ascites altered mental status, improved. PLAN: seems clearer mentally not SOB, off O2, sat ok disc w mom at bedside cont abx Subjective Respiratory: Denies: shortness of breath Gastrointestinal/Abdominal: Denies: nausea Allergies: Coded Allergies: No Known Allergies (Unverified , 04/29/17) Objective Last 24 Hour Vital Signs Date Time Temp Pulse Resp B/P (MAP) Pulse Ox O2 Delivery O2 Flow Rate FiO2 05/30/17 08:09 73 05/30/17 08:00 97.0 97 20 112/59 98 05/30/17 06:30 Nasal Cannula 2.0 28 05/30/17 06:30 80 18 Nasal Cannula 2.0 28 05/30/17 06:30 96 Nasal Cannula 2.0 28 05/30/17 04:00 65 05/30/17 04:00 97.2 86 19 119/63 95 Room Air 05/30/17 00:00 66 05/30/17 00:00 97.1 69 18 113/64 95 Nasal Cannula 2.0 05/29/17 20:37 97.0 86 19 127/69 95 Nasal Cannula 2.0 05/29/17 20:00 88 05/29/17 18:48 82 18 Nasal Cannula 2.0 28 05/29/17 18:48 98 Nasal Cannula 2.0 28 05/29/17 18:48 Nasal Cannula 2.0 28 05/29/17 16:31 87 05/29/17 16:00 97.1 90 18 126/71 96 Nasal Cannula 2.0 05/29/17 12:19 79 05/29/17 12:00 98.0 81 18 116/70 98 Nasal Cannula 2.0 Intake and Output 05/30/17 05/31/17 19:00 07:00 # Bowel Movements 1 Objective jaundice and scleral icterus General Appearance: no acute distress HEENT: atraumatic Respiratory/Chest: lungs clear, decreased breath sounds Cardiovascular: normal rate Abdomen: soft, non tender Extremities: other - 2-3+ edema Microbiology Date/Time Source Procedure Growth Status 05/28/17 09:00 Urine,Clean Catch Urine Culture - Preliminary YEAST Resulted Laboratory Tests 05/30/17 04:45: White Blood Count 18.7H, Red Blood Count 2.20L, Hemoglobin 7.7L, Hematocrit 26.0L, Mean Corpuscular Volume 118H, Mean Corpuscular Hemoglobin 35.1H, Mean Corpuscular Hemoglobin Concent 29.7L, Red Cell Distribution Width 16.0H, Platelet Count 80L, Mean Platelet Volume 6.9, Neutrophils (%) (Auto) , Lymphocytes (%) (Auto) , Monocytes (%) (Auto) , Eosinophils (%) (Auto) , Basophils (%) (Auto) , Differential Total Cells Counted 100, Neutrophils % ( Manual) 97H, Lymphocytes % (Manual) 2L, Monocytes % (Manual) 1, Eosinophils % ( Manual) 0, Basophils % (Manual) 0, Band Neutrophils 0, Platelet Estimate DecreasedL, Platelet Morphology Normal, Sodium Level 145, Potassium Level 3.2L, Chloride Level 114H, Carbon Dioxide Level 20L, Anion Gap 11, Blood Urea Nitrogen 40H, Creatinine 1.5H, Estimat Glomerular Filtration Rate 51.8, Glucose Level 156H, Calcium Level 7.3L, Total Bilirubin 12.1H, Direct Bilirubin 10.0H, Aspartate Amino Transf (AST/SGOT) 72H, Alanine Aminotransferase (ALT/SGPT) 49, Alkaline Phosphatase 386H, Ammonia 70H, Total Protein 4.2L, Albumin 1.9L, Globulin 2.3, Albumin/Globulin Ratio 0.8L Current Medications Medications (Trade) Dose Ordered Sig/Leonard Route PRN Reason Start Time Stop Time Status Last Admin Dose Admin Albuterol Sulfate (Proventil MDI) 2 puff BIDPRN PRN INH Shortness of Breath 05/24/17 21:45 06/23/17 21:44 Dextrose/Sodium Chloride 1,000 ml @ 100 mls/hr Q10H IV 05/28/17 15:00 06/27/17 14:59 05/30/17 07:07 Lorazepam (Ativan) 2 mg Q6HR PRN ORAL For Anxiety 05/29/17 21:15 06/05/17 21:14 Midodrine (Pro-Amatine) 10 mg THREE TIMES A DAY ORAL 05/25/17 09:00 06/24/17 08:59 05/30/17 10:17 Nystatin (Nystop Powder) 1 applic THREE TIMES A DAY TOPIC 05/29/17 13:00 06/28/17 12:59 05/30/17 10:20 Octreotide Acetate (SandoSTATIN) 100 mcg Q8HR SUBQ 05/26/17 22:00 06/25/17 21:59 05/30/17 05:55 Piperacillin/ Tazobactam/ Dextrose 50 ml @ 12.5 mls/hr Q8HR@0400,1200,2000 IVPB 05/25/17 04:00 05/30/17 23:59 05/30/17 04:53 Prednisone (predniSONE) 40 mg DAILY ORAL 05/27/17 14:30 06/26/17 14:29 05/30/17 10:16 Rifaximin (Xifaxan) 550 mg EVERY 12 HOURS ORAL 05/29/17 09:30 06/05/17 09:29 05/30/17 10:16 Tamsulosin HCl (Flomax) 0.4 mg BID ORAL 05/28/17 22:00 06/27/17 21:59 05/30/17 10:17 Thiamine HCl (Vitamin B1) 100 mg DAILY ORAL 05/25/17 09:00 06/24/17 08:59 05/30/17 10:16 Vitamin D (Vitamin D) 1,000 intlu DAILY ORAL 05/25/17 09:00 06/24/17 08:59 05/30/17 10:16 JAMES NAVARRO May 30, 2017 10:52
[2017-05-30] MEDS ORDERED: D5NS 1000ml IV ONE ×2 (11:04→14:56)
[2017-05-30 12:00] VITALS: BP 121/64
--- NOTE | 2017-05-30 12:35 | Nephrology Progress Note ---
Assessment/Plan Problem List: (1) Liver cirrhosis, alcoholic (2) Ascites due to alcoholic cirrhosis (3) Renal failure (ARF), acute on chronic Assessment Renal failure on admit , likely hepatorenal- Cr zaira to 2.5 now back down to 1.5 pneumonia, leukocytosis h/o low Na due to anasarca High K , Kayexelate given Jaundice Anemia low alb Plan Plan: K supplement Antibiotics- avoid nephrotoxics- monitor renal parameters optimize pulmonary and renal and hepatic status as possible. per consultants Subjective ROS Limited/Unobtainable: No Constitutional: Reports: malaise, weakness Objective Objective Last 24 Hour Vital Signs Date Time Temp Pulse Resp B/P (MAP) Pulse Ox O2 Delivery O2 Flow Rate FiO2 05/30/17 12:00 101 05/30/17 12:00 97.5 97 19 121/64 98 05/30/17 08:09 73 05/30/17 08:00 97.0 97 20 112/59 98 05/30/17 06:30 Nasal Cannula 2.0 28 05/30/17 06:30 80 18 Nasal Cannula 2.0 28 05/30/17 06:30 96 Nasal Cannula 2.0 28 05/30/17 04:00 65 05/30/17 04:00 97.2 86 19 119/63 95 Room Air 05/30/17 00:00 66 05/30/17 00:00 97.1 69 18 113/64 95 Nasal Cannula 2.0 05/29/17 20:37 97.0 86 19 127/69 95 Nasal Cannula 2.0 05/29/17 20:00 88 05/29/17 18:48 82 18 Nasal Cannula 2.0 28 05/29/17 18:48 98 Nasal Cannula 2.0 28 05/29/17 18:48 Nasal Cannula 2.0 28 05/29/17 16:31 87 05/29/17 16:00 97.1 90 18 126/71 96 Nasal Cannula 2.0 Intake and Output 05/30/17 05/31/17 19:00 07:00 # Bowel Movements 2 Laboratory Tests 05/30/17 04:45: White Blood Count 18.7H, Red Blood Count 2.20L, Hemoglobin 7.7L, Hematocrit 26.0L, Mean Corpuscular Volume 118H, Mean Corpuscular Hemoglobin 35.1H, Mean Corpuscular Hemoglobin Concent 29.7L, Red Cell Distribution Width 16.0H, Platelet Count 80L, Mean Platelet Volume 6.9, Neutrophils (%) (Auto) , Lymphocytes (%) (Auto) , Monocytes (%) (Auto) , Eosinophils (%) (Auto) , Basophils (%) (Auto) , Differential Total Cells Counted 100, Neutrophils % ( Manual) 97H, Lymphocytes % (Manual) 2L, Monocytes % (Manual) 1, Eosinophils % ( Manual) 0, Basophils % (Manual) 0, Band Neutrophils 0, Platelet Estimate DecreasedL, Platelet Morphology Normal, Sodium Level 145, Potassium Level 3.2L, Chloride Level 114H, Carbon Dioxide Level 20L, Anion Gap 11, Blood Urea Nitrogen 40H, Creatinine 1.5H, Estimat Glomerular Filtration Rate 51.8, Glucose Level 156H, Calcium Level 7.3L, Total Bilirubin 12.1H, Direct Bilirubin 10.0H, Aspartate Amino Transf (AST/SGOT) 72H, Alanine Aminotransferase (ALT/SGPT) 49, Alkaline Phosphatase 386H, Ammonia 70H, Total Protein 4.2L, Albumin 1.9L, Globulin 2.3, Albumin/Globulin Ratio 0.8L Height (Feet): 6 Height (Inches): 0.00 Weight (Pounds): 222 General Appearance: no apparent distress, lethargic Respiratory/Chest: decreased breath sounds Abdomen: distended Objective no other changes MIKAELA AYUOB May 30, 2017 12:35
[2017-05-30] MEDS ORDERED: traMADol 50mg tab ORAL PRN ×2 (13:15→17:00)
--- NOTE | 2017-05-30 13:54 | GI Progress Note ---
Assessment/Plan Problems: (1) Renal failure (ARF), acute on chronic ICD Codes: N17.9 - Acute kidney failure, unspecified; N18.9 - Chronic kidney disease, unspecified SNOMED: 810686602 (2) Ascites due to alcoholic cirrhosis ICD Codes: K70.31 - Alcoholic cirrhosis of liver with ascites SNOMED: 4630465988579118 (3) Jaundice of recent onset ICD Codes: R17 - Unspecified jaundice SNOMED: 83307738 (4) Leukocytosis ICD Codes: D72.829 - Elevated white blood cell count, unspecified SNOMED: 378864108, 962470241 (5) Sepsis ICD Codes: A41.9 - Sepsis, unspecified organism SNOMED: 74505094 (6) Liver cirrhosis, alcoholic ICD Codes: K70.30 - Alcoholic cirrhosis of liver without ascites SNOMED: 797768623, 715727487 Status: progressing Status Narrative Discussed with Dr. Daly. Assessment/Plan downgrade to medsurg prednisone daily >> plan to taper as outpatient monitor H&H, prn transfusion if Hgb < 7.0 dc lactulose, monitor ammonia tramadol prn pain electrolyte replacement nystatin abx per ID fu ultrasound guided paracentesis >> r/o SBP >> negative albumin IV prn octreotide subq + midodrine fu labs per consultants dc planning to [facility] Subjective Subjective patient is more alert today Objective Last 24 Hour Vital Signs Date Time Temp Pulse Resp B/P (MAP) Pulse Ox O2 Delivery O2 Flow Rate FiO2 05/30/17 12:00 101 05/30/17 12:00 97.5 97 19 121/64 98 05/30/17 08:09 73 05/30/17 08:00 97.0 97 20 112/59 98 05/30/17 06:30 Nasal Cannula 2.0 28 05/30/17 06:30 80 18 Nasal Cannula 2.0 28 05/30/17 06:30 96 Nasal Cannula 2.0 28 05/30/17 04:00 65 05/30/17 04:00 97.2 86 19 119/63 95 Room Air 05/30/17 00:00 66 05/30/17 00:00 97.1 69 18 113/64 95 Nasal Cannula 2.0 05/29/17 20:37 97.0 86 19 127/69 95 Nasal Cannula 2.0 05/29/17 20:00 88 05/29/17 18:48 82 18 Nasal Cannula 2.0 28 05/29/17 18:48 98 Nasal Cannula 2.0 28 05/29/17 18:48 Nasal Cannula 2.0 28 05/29/17 16:31 87 05/29/17 16:00 97.1 90 18 126/71 96 Nasal Cannula 2.0 Intake and Output 05/30/17 05/31/17 19:00 07:00 # Bowel Movements 2 Laboratory Tests Test 05/30/17 04:45 White Blood Count 18.7 K/UL (4.8-10.8) H Red Blood Count 2.20 M/UL (4.70-6.10) L Hemoglobin 7.7 G/DL (14.2-18.0) L Hematocrit 26.0 % (42.0-52.0) L Mean Corpuscular Volume 118 FL (80-99) H Mean Corpuscular Hemoglobin 35.1 PG (27.0-31.0) H Mean Corpuscular Hemoglobin Concent 29.7 G/DL (32.0-36.0) L Red Cell Distribution Width 16.0 % (11.6-14.8) H Platelet Count 80 K/UL (150-450) L Mean Platelet Volume 6.9 FL (6.5-10.1) Neutrophils (%) (Auto) % (45.0-75.0) Lymphocytes (%) (Auto) % (20.0-45.0) Monocytes (%) (Auto) % (1.0-10.0) Eosinophils (%) (Auto) % (0.0-3.0) Basophils (%) (Auto) % (0.0-2.0) Differential Total Cells Counted 100 Neutrophils % (Manual) 97 % (45-75) H Lymphocytes % (Manual) 2 % (20-45) L Monocytes % (Manual) 1 % (1-10) Eosinophils % (Manual) 0 % (0-3) Basophils % (Manual) 0 % (0-2) Band Neutrophils 0 % (0-8) Platelet Estimate Decreased L Platelet Morphology Normal Sodium Level 145 MMOL/L (136-145) Potassium Level 3.2 MMOL/L (3.5-5.1) L Chloride Level 114 MMOL/L (98-107) H Carbon Dioxide Level 20 MMOL/L (21-32) L Anion Gap 11 mmol/L (5-15) Blood Urea Nitrogen 40 mg/dL (7-18) H Creatinine 1.5 MG/DL (0.55-1.30) H Estimat Glomerular Filtration Rate 51.8 mL/min (>60) Glucose Level 156 MG/DL (74-106) H Calcium Level 7.3 MG/DL (8.5-10.1) L Total Bilirubin 12.1 MG/DL (0.2-1.0) H Direct Bilirubin 10.0 MG/DL (0.0-0.3) H Aspartate Amino Transf (AST/SGOT) 72 U/L (15-37) H Alanine Aminotransferase (ALT/SGPT) 49 U/L (12-78) Alkaline Phosphatase 386 U/L (46-116) H Ammonia 70 umol/L (11.2-31.7) H Total Protein 4.2 G/DL (6.4-8.2) L Albumin 1.9 G/DL (3.4-5.0) L Globulin 2.3 g/dL Albumin/Globulin Ratio 0.8 (1.0-2.7) L Height (Feet): 6 Height (Inches): 0.00 Weight (Pounds): 222 General Appearance: alert Cardiovascular: normal rate Respiratory/Chest: normal breath sounds, no respiratory distress, other - 2LNC Abdominal Exam: normal bowel sounds, non tender, soft, ascites Extremities: normal range of motion - BLE, non-tender Danay Grady N.P. May 30, 2017 13:54
--- NOTE | 2017-05-30 14:14 | Diagnostic Imaging Report ---
APPROVED REPORT CPT Code: 81575 Present Symptoms Lower Extremity Edema: Bilateral BILATERAL: Imaging reveals a patent deep venous system bilaterally. There is no evidence of thrombus within the femoral, popliteal or tibial segments. The greater saphenous veins are also within normal limits. Doppler indicates normal spontaneous flow within these segments.
[2017-05-30] MEDS ORDERED: NS 275ml ONE (14:56)
[2017-05-30 15:24] VITALS: BP 122/59
--- NOTE | 2017-05-30 16:29 | General Progress Note ---
Assessment/Plan Assessment/Plan IMPRESSION/PLAN 1. Leukocytosis 2/2 sepsis. ID following 2. Thrombocytopenia, multifactorial. The patient has a history of liver disease. Platelet goal is above 20K --> Give plts if count drops to 10K or if count is 20K and pt febrile 3. Anemia of chronic disease. Watch counts, transfuse if hgb below 7. --> continue to monitor closely, hgb is downtrending 4. Anemia of kidney disease. 5. History of alcohol abuse. 6. Alcoholic liver cirrhosis. 7. Bilirubinemia. Subjective ROS Limited/Unobtainable: Yes Constitutional: Reports: weakness Allergies: Coded Allergies: No Known Allergies (Unverified , 04/29/17) Subjective alert, family at bedside, pending dc to a snf today Objective Last 24 Hour Vital Signs Date Time Temp Pulse Resp B/P (MAP) Pulse Ox O2 Delivery O2 Flow Rate FiO2 05/30/17 15:24 97.6 90 20 122/59 98 05/30/17 12:00 101 05/30/17 12:00 97.5 97 19 121/64 98 05/30/17 08:09 73 05/30/17 08:00 97.0 97 20 112/59 98 05/30/17 06:30 Nasal Cannula 2.0 28 05/30/17 06:30 80 18 Nasal Cannula 2.0 28 05/30/17 06:30 96 Nasal Cannula 2.0 28 05/30/17 04:00 65 05/30/17 04:00 97.2 86 19 119/63 95 Room Air 05/30/17 00:00 66 05/30/17 00:00 97.1 69 18 113/64 95 Nasal Cannula 2.0 05/29/17 20:37 97.0 86 19 127/69 95 Nasal Cannula 2.0 05/29/17 20:00 88 05/29/17 18:48 82 18 Nasal Cannula 2.0 28 05/29/17 18:48 98 Nasal Cannula 2.0 28 05/29/17 18:48 Nasal Cannula 2.0 28 05/29/17 16:31 87 Intake and Output 05/30/17 05/31/17 19:00 07:00 # Bowel Movements 3 Laboratory Tests 05/30/17 04:45: White Blood Count 18.7H, Red Blood Count 2.20L, Hemoglobin 7.7L, Hematocrit 26.0L, Mean Corpuscular Volume 118H, Mean Corpuscular Hemoglobin 35.1H, Mean Corpuscular Hemoglobin Concent 29.7L, Red Cell Distribution Width 16.0H, Platelet Count 80L, Mean Platelet Volume 6.9, Neutrophils (%) (Auto) , Lymphocytes (%) (Auto) , Monocytes (%) (Auto) , Eosinophils (%) (Auto) , Basophils (%) (Auto) , Differential Total Cells Counted 100, Neutrophils % ( Manual) 97H, Lymphocytes % (Manual) 2L, Monocytes % (Manual) 1, Eosinophils % ( Manual) 0, Basophils % (Manual) 0, Band Neutrophils 0, Platelet Estimate DecreasedL, Platelet Morphology Normal, Sodium Level 145, Potassium Level 3.2L, Chloride Level 114H, Carbon Dioxide Level 20L, Anion Gap 11, Blood Urea Nitrogen 40H, Creatinine 1.5H, Estimat Glomerular Filtration Rate 51.8, Glucose Level 156H, Calcium Level 7.3L, Total Bilirubin 12.1H, Direct Bilirubin 10.0H, Aspartate Amino Transf (AST/SGOT) 72H, Alanine Aminotransferase (ALT/SGPT) 49, Alkaline Phosphatase 386H, Ammonia 70H, Total Protein 4.2L, Albumin 1.9L, Globulin 2.3, Albumin/Globulin Ratio 0.8L Height (Feet): 6 Height (Inches): 0.00 Weight (Pounds): 222 General Appearance: no apparent distress EENT: PERRL/EOMI Neck: non-tender, normal alignment Extremities: normal range of motion Skin: warm/dry Joshua Hurley May 30, 2017 16:29
[2017-05-30] MEDS ORDERED: Albuterol 90mcg Inhaler 8gm INH PRN (17:00)
--- NOTE | 2017-05-30 17:01 | Infectious Diseases Prog Note ---
Assessment/Plan Problems: (1) HCAP (healthcare-associated pneumonia) Assessment & Plan: CHF VS pneumonia , improving on repeated CXR, continue zosyn for 7 days total , continue to monitor CXR (2) Sepsis Assessment & Plan: with significant leukocytosis, now increasing due to steroids , on zosyn , blood culture grew coag negative staph from one bottle most likely contaminant , monitor off vancomycin, taper steroids (3) Ascites due to alcoholic cirrhosis Assessment & Plan: with anasarca, recommend diuresis, and daily weight monitor , S/P paracentesis , fluids culture is negative (4) Liver cirrhosis, alcoholic Assessment & Plan: continue supportive care, GI is following (5) QAMAR (acute kidney injury) Assessment & Plan: suspect hepatorenal, monitor urine output, and avoid nephrotoxic medicine, renal service is following (6) Acute respiratory failure Assessment & Plan: improving , due to the above , off BIPAP, on nasal canula , monitor CXR, pulmonary is following Subjective Constitutional: Reports: fatigue, anorexia HEENT: Reports: no symptoms Respiratory: Reports: no symptoms Breasts: Reports: no symptoms Cardiovascular: Reports: no symptoms Gastrointestinal/Abdominal: Reports: diarrhea, bloating Genitourinary: Reports: no symptoms Neurologic: Reports: weakness, confusion Psychiatric: Reports: no symptoms Skin: Reports: no symptoms Endocrine: Reports: no symptoms Hematologic: Reports: no symptoms Musculoskeletal: Reports: swelling Allergies: Coded Allergies: No Known Allergies (Unverified , 04/29/17) Objective Vital Signs Last 24 Hour Vital Signs Date Time Temp Pulse Resp B/P (MAP) Pulse Ox O2 Delivery O2 Flow Rate FiO2 05/30/17 15:24 97.6 90 20 122/59 98 05/30/17 12:00 101 05/30/17 12:00 97.5 97 19 121/64 98 05/30/17 08:09 73 05/30/17 08:00 97.0 97 20 112/59 98 05/30/17 06:30 Nasal Cannula 2.0 28 05/30/17 06:30 80 18 Nasal Cannula 2.0 28 05/30/17 06:30 96 Nasal Cannula 2.0 28 05/30/17 04:00 65 05/30/17 04:00 97.2 86 19 119/63 95 Room Air 05/30/17 00:00 66 05/30/17 00:00 97.1 69 18 113/64 95 Nasal Cannula 2.0 05/29/17 20:37 97.0 86 19 127/69 95 Nasal Cannula 2.0 05/29/17 20:00 88 05/29/17 18:48 82 18 Nasal Cannula 2.0 28 05/29/17 18:48 98 Nasal Cannula 2.0 28 05/29/17 18:48 Nasal Cannula 2.0 28 Height (Feet): 6 Height (Inches): 0.00 Weight (Pounds): 222 General Appearance: WD/WN, no acute distress HEENT: normocephalic, atraumatic, anicteric, mucous membranes moist, PERRL, EOMI, pharynx normal, other - jaundiced sclera Respiratory/Chest: chest wall non-tender, normal breath sounds, no respiratory distress, no accessory muscle use, decreased breath sounds, crackles/rales Cardiovascular: normal peripheral pulses, normal rate, regular rhythm, no gallop/murmur, no JVD Abdomen: normal bowel sounds, soft, non tender, no organomegaly, non distended , no mass, no scars, hypoactive bowel sounds Genitourinary: other - scrotal edema Extremities: no cyanosis, no clubbing Skin: no rash, no lesions, no ulcers Neurologic/Psychiatric: alert, responsive Lymphatic: no neck adenopathy, no groin adenopathy Microbiology Date/Time Source Procedure Growth Status 05/28/17 09:00 Urine,Clean Catch Urine Culture - Preliminary YEAST Resulted Laboratory Tests Test 05/30/17 04:45 White Blood Count 18.7 K/UL (4.8-10.8) H Red Blood Count 2.20 M/UL (4.70-6.10) L Hemoglobin 7.7 G/DL (14.2-18.0) L Hematocrit 26.0 % (42.0-52.0) L Mean Corpuscular Volume 118 FL (80-99) H Mean Corpuscular Hemoglobin 35.1 PG (27.0-31.0) H Mean Corpuscular Hemoglobin Concent 29.7 G/DL (32.0-36.0) L Red Cell Distribution Width 16.0 % (11.6-14.8) H Platelet Count 80 K/UL (150-450) L Mean Platelet Volume 6.9 FL (6.5-10.1) Neutrophils (%) (Auto) % (45.0-75.0) Lymphocytes (%) (Auto) % (20.0-45.0) Monocytes (%) (Auto) % (1.0-10.0) Eosinophils (%) (Auto) % (0.0-3.0) Basophils (%) (Auto) % (0.0-2.0) Differential Total Cells Counted 100 Neutrophils % (Manual) 97 % (45-75) H Lymphocytes % (Manual) 2 % (20-45) L Monocytes % (Manual) 1 % (1-10) Eosinophils % (Manual) 0 % (0-3) Basophils % (Manual) 0 % (0-2) Band Neutrophils 0 % (0-8) Platelet Estimate Decreased L Platelet Morphology Normal Sodium Level 145 MMOL/L (136-145) Potassium Level 3.2 MMOL/L (3.5-5.1) L Chloride Level 114 MMOL/L (98-107) H Carbon Dioxide Level 20 MMOL/L (21-32) L Anion Gap 11 mmol/L (5-15) Blood Urea Nitrogen 40 mg/dL (7-18) H Creatinine 1.5 MG/DL (0.55-1.30) H Estimat Glomerular Filtration Rate 51.8 mL/min (>60) Glucose Level 156 MG/DL (74-106) H Calcium Level 7.3 MG/DL (8.5-10.1) L Total Bilirubin 12.1 MG/DL (0.2-1.0) H Direct Bilirubin 10.0 MG/DL (0.0-0.3) H Aspartate Amino Transf (AST/SGOT) 72 U/L (15-37) H Alanine Aminotransferase (ALT/SGPT) 49 U/L (12-78) Alkaline Phosphatase 386 U/L (46-116) H Ammonia 70 umol/L (11.2-31.7) H Total Protein 4.2 G/DL (6.4-8.2) L Albumin 1.9 G/DL (3.4-5.0) L Globulin 2.3 g/dL Albumin/Globulin Ratio 0.8 (1.0-2.7) L Current Medications Medications (Trade) Dose Ordered Sig/Leonard Route PRN Reason Start Time Stop Time Status Last Admin Dose Admin Albuterol Sulfate (Proventil MDI) 2 puff BIDPRN PRN INH Shortness of Breath 05/30/17 17:00 06/23/17 16:59 Dextrose/Sodium Chloride 1,000 ml @ 100 mls/hr Q10H IV 05/30/17 17:00 06/27/17 16:59 Lorazepam (Ativan) 2 mg Q6H PRN ORAL For Anxiety 05/30/17 18:00 06/06/17 17:59 Midodrine (Pro-Amatine) 10 mg THREE TIMES A DAY ORAL 05/30/17 18:00 06/24/17 08:59 Nystatin (Nystop Powder) 1 applic THREE TIMES A DAY TOPIC 05/30/17 18:00 06/28/17 12:59 Octreotide Acetate (SandoSTATIN) 100 mcg Q8HR SUBQ 05/30/17 22:00 06/25/17 21:59 Piperacillin/ Tazobactam/ Dextrose 50 ml @ 12.5 mls/hr Q8HR@0400,1200,2000 IVPB 05/30/17 20:00 05/31/17 23:59 Prednisone (predniSONE) 40 mg DAILY ORAL 05/31/17 09:00 06/26/17 14:29 Rifaximin (Xifaxan) 550 mg EVERY 12 HOURS ORAL 05/30/17 21:00 06/29/17 09:29 Tamsulosin HCl (Flomax) 0.4 mg BID ORAL 05/30/17 18:00 06/27/17 21:59 Thiamine HCl (Vitamin B1) 100 mg DAILY ORAL 05/31/17 09:00 06/24/17 08:59 Tramadol HCl (Ultram) 50 mg Q6H PRN ORAL For Pain 05/30/17 17:00 06/06/17 16:59 Vitamin D (Vitamin D) 1,000 intlu DAILY ORAL 05/31/17 09:00 06/24/17 08:59 Janae Lopez M.D. May 30, 2017 17:01
[2017-05-30] MEDS ORDERED: LORazepam 1mg tab ORAL PRN (18:00)
[2017-05-30 20:00] VITALS: BP 123/63
--- NOTE | 2017-05-30 22:51 | General Progress Note ---
Assessment/Plan Status: stable, progressing Assessment/Plan hepato encephalopathy dc remeron cont ativan risperdal 2mg qhs Subjective Neurologic/Psychiatric: Reports: anxiety, depressed, emotional problems Allergies: Coded Allergies: No Known Allergies (Unverified , 04/29/17) Subjective the pt is more alert not psychotic Objective Last 24 Hour Vital Signs Date Time Temp Pulse Resp B/P (MAP) Pulse Ox O2 Delivery O2 Flow Rate FiO2 05/30/17 20:05 84 18 Room Air 05/30/17 20:05 Room Air 05/30/17 20:05 96 Room Air 05/30/17 20:00 97.0 89 20 123/63 98 Room Air 05/30/17 15:24 97.6 90 20 122/59 98 05/30/17 12:00 101 05/30/17 12:00 97.5 97 19 121/64 98 05/30/17 08:09 73 05/30/17 08:00 97.0 97 20 112/59 98 05/30/17 06:30 Nasal Cannula 2.0 28 05/30/17 06:30 80 18 Nasal Cannula 2.0 28 05/30/17 06:30 96 Nasal Cannula 2.0 28 05/30/17 04:00 65 05/30/17 04:00 97.2 86 19 119/63 95 Room Air 05/30/17 00:00 66 05/30/17 00:00 97.1 69 18 113/64 95 Nasal Cannula 2.0 Intake and Output 05/30/17 05/31/17 19:00 07:00 Intake Total 340 ml 100 ml Output Total 400 ml Balance -60 ml 100 ml Intake Oral 240 ml IV Total 100 ml 100 ml Output Urine Total 400 ml # Bowel Movements 4 Laboratory Tests 05/30/17 04:45: White Blood Count 18.7H, Red Blood Count 2.20L, Hemoglobin 7.7L, Hematocrit 26.0L, Mean Corpuscular Volume 118H, Mean Corpuscular Hemoglobin 35.1H, Mean Corpuscular Hemoglobin Concent 29.7L, Red Cell Distribution Width 16.0H, Platelet Count 80L, Mean Platelet Volume 6.9, Neutrophils (%) (Auto) , Lymphocytes (%) (Auto) , Monocytes (%) (Auto) , Eosinophils (%) (Auto) , Basophils (%) (Auto) , Differential Total Cells Counted 100, Neutrophils % ( Manual) 97H, Lymphocytes % (Manual) 2L, Monocytes % (Manual) 1, Eosinophils % ( Manual) 0, Basophils % (Manual) 0, Band Neutrophils 0, Platelet Estimate DecreasedL, Platelet Morphology Normal, Sodium Level 145, Potassium Level 3.2L, Chloride Level 114H, Carbon Dioxide Level 20L, Anion Gap 11, Blood Urea Nitrogen 40H, Creatinine 1.5H, Estimat Glomerular Filtration Rate 51.8, Glucose Level 156H, Calcium Level 7.3L, Total Bilirubin 12.1H, Direct Bilirubin 10.0H, Aspartate Amino Transf (AST/SGOT) 72H, Alanine Aminotransferase (ALT/SGPT) 49, Alkaline Phosphatase 386H, Ammonia 70H, Total Protein 4.2L, Albumin 1.9L, Globulin 2.3, Albumin/Globulin Ratio 0.8L Height (Feet): 6 Height (Inches): 0.00 Weight (Pounds): 222 General Appearance: no apparent distress, alert Neurologic: alert, oriented x 3, responsive, normal mood/affect Trino Kirby M.D. May 30, 2017 22:51
[2017-05-31] VITALS: BP 142/68
[2017-05-31] MEDS: D5NS 1,000 ML IV SCH ×2 (03:00→16:39)
[2017-05-31] MEDS: Zosyn 3.375gm/50ml Premix 50 ML IVPB SCH ×3 (03:44→21:54)
[2017-05-31 04:00] VITALS: BP 123/69
[2017-05-31] MEDS: SandoSTATIN 100mcg/ml amp SUBQ SCH ×3 (05:15→21:54)
[2017-05-31 07:42] LABS: MEAN CORPUSCULAR HEMOGLOBIN 37.5 PG (27.0-31.0); MEAN CORPUSCULAR HGB CONC 32.4 G/DL (32.0-36.0); MEAN CORPUSCULAR VOLUME 115 FL (80-99); MEAN PLATELET VOLUME 8.5 FL (6.5-10.1); PLATELET COUNT 80 K/UL (150-450); RED BLOOD COUNT 2.23 M/UL (4.70-6.10); RED CELL DISTRIBUTION WIDTH 16.7 % (11.6-14.8); WHITE BLOOD COUNT 20.4 K/UL (4.8-10.8)
[2017-05-31 08:02] LABS: AMMONIA 75 umol/L (11.2-31.7)
[2017-05-31 08:03] LABS: ALANINE AMINOTRANSFERASE 52 U/L (12-78); ALBUMIN/GLOBULIN RATIO 0.7 (1.0-2.7); ANION GAP 10 mmol/L (5-15); ASPARTATE AMINO TRANSFERASE 85 U/L (15-37); CALCIUM 7.7 MG/DL (8.5-10.1); CARBON DIOXIDE 20 MMOL/L (21-32); CHLORIDE 116 MMOL/L (98-107); CREATININE 1.4 MG/DL (0.55-1.30); GLOMERULAR FILTRATION RATE 56.1 mL/min (>60); POTASSIUM 3.6 MMOL/L (3.5-5.1); SODIUM 146 MMOL/L (136-145); TOTAL PROTEIN 4.2 G/DL (6.4-8.2)
[2017-05-31 08:07] LABS: BILIRUBIN,DIRECT 8.4 MG/DL (0.0-0.3)
--- NOTE | 2017-05-31 08:10 | Nephrology Progress Note ---
Assessment/Plan Problem List: (1) Liver cirrhosis, alcoholic (2) Ascites due to alcoholic cirrhosis (3) Renal failure (ARF), acute on chronic Assessment Renal failure on admit , likely hepatorenal- Cr zaira to 2.5 now back down to 1.4 pneumonia, leukocytosis h/o low Na due to anasarca High K , Kayexelate given Jaundice Anemia low alb Plan Plan: K supplement Antibiotics- avoid nephrotoxics- monitor renal parameters optimize pulmonary and renal and hepatic status as possible. per consultants Subjective ROS Limited/Unobtainable: No Constitutional: Reports: malaise Objective Objective Last 24 Hour Vital Signs Date Time Temp Pulse Resp B/P (MAP) Pulse Ox O2 Delivery O2 Flow Rate FiO2 05/31/17 04:00 96.4 86 20 123/69 97 Room Air 05/31/17 00:00 96.4 86 18 142/68 95 Room Air 05/30/17 20:05 84 18 Room Air 05/30/17 20:05 Room Air 05/30/17 20:05 96 Room Air 05/30/17 20:00 97.0 89 20 123/63 98 Room Air 05/30/17 15:24 97.6 90 20 122/59 98 05/30/17 12:00 101 05/30/17 12:00 97.5 97 19 121/64 98 Laboratory Tests 05/31/17 05:33: White Blood Count 20.4H, Red Blood Count 2.23L, Hemoglobin 8.3L, Hematocrit 25.7L, Mean Corpuscular Volume 115H, Mean Corpuscular Hemoglobin 37.5H, Mean Corpuscular Hemoglobin Concent 32.4, Red Cell Distribution Width 16.7H, Platelet Count 80L, Mean Platelet Volume 8.5, Neutrophils (%) (Auto) , Lymphocytes (%) (Auto) , Monocytes (%) (Auto) , Eosinophils (%) (Auto) , Basophils (%) (Auto) , Neutrophils % (Manual) [Pending], Lymphocytes % (Manual) [Pending], Platelet Estimate [Pending], Platelet Morphology [Pending], Sodium Level 146H, Potassium Level 3.6, Chloride Level 116H, Carbon Dioxide Level 20L, Anion Gap 10, Blood Urea Nitrogen 37H, Creatinine 1.4H, Estimat Glomerular Filtration Rate 56.1, Glucose Level 139H, Calcium Level 7.7L, Total Bilirubin 10.4H, Direct Bilirubin 8.4H, Aspartate Amino Transf (AST/SGOT) 85H, Alanine Aminotransferase (ALT/SGPT) 52, Alkaline Phosphatase 409H, Ammonia 75H, Total Protein 4.2L, Albumin 1.7L, Globulin 2.5, Albumin/Globulin Ratio 0.7L Height (Feet): 6 Height (Inches): 0.00 Weight (Pounds): 222 General Appearance: no apparent distress Respiratory/Chest: decreased breath sounds Abdomen: distended Objective no other changes MIKAELA AYOUB May 31, 2017 08:10
[2017-05-31] MEDS ORDERED: D5NS 1000ml IV ONE (09:48)
[2017-05-31] MEDS ORDERED: Tubing IV Secondary IV ONE (09:48)
--- NOTE | 2017-05-31 10:04 | Diagnostic Imaging Report ---
Indication: Shortness of breath Comparison: 05/29/2017 A single view chest radiograph was obtained. Findings: Interstitial edema again seen and appears slightly worse from the prior exam 2 days earlier. Heart size is stable. Lung volumes are low. Right perihilar infiltrate suspected. Impression: Suspected interstitial edema/CHF which appears slightly worse from prior exam 2 days earlier. Superimposed right perihilar infiltrate versus atelectasis again demonstrated.
--- NOTE | 2017-05-31 10:13 | General Progress Note ---
Assessment/Plan Problem List: (1) Alcohol abuse ICD Codes: F10.10 - Alcohol abuse, uncomplicated SNOMED: 52792117 (2) Liver failure ICD Codes: K72.90 - Hepatic failure, unspecified without coma SNOMED: 20424450 (3) Ascites due to alcoholic cirrhosis ICD Codes: K70.31 - Alcoholic cirrhosis of liver with ascites SNOMED: 5999835876448499 (4) Jaundice of recent onset ICD Codes: R17 - Unspecified jaundice SNOMED: 51413937 Assessment/Plan dc ativan fu labs cont current care Subjective Allergies: Coded Allergies: No Known Allergies (Unverified , 04/29/17) Subjective was given ativan and now sleeping Objective Last 24 Hour Vital Signs Date Time Temp Pulse Resp B/P (MAP) Pulse Ox O2 Delivery O2 Flow Rate FiO2 05/31/17 08:26 95 Room Air 05/31/17 08:26 78 18 Room Air 05/31/17 08:26 Room Air 05/31/17 04:00 96.4 86 20 123/69 97 Room Air 05/31/17 00:00 96.4 86 18 142/68 95 Room Air 05/30/17 20:05 84 18 Room Air 05/30/17 20:05 Room Air 05/30/17 20:05 96 Room Air 05/30/17 20:00 97.0 89 20 123/63 98 Room Air 05/30/17 15:24 97.6 90 20 122/59 98 05/30/17 12:00 101 05/30/17 12:00 97.5 97 19 121/64 98 Laboratory Tests 05/31/17 05:33: White Blood Count 20.4H, Red Blood Count 2.23L, Hemoglobin 8.3L, Hematocrit 25.7L, Mean Corpuscular Volume 115H, Mean Corpuscular Hemoglobin 37.5H, Mean Corpuscular Hemoglobin Concent 32.4, Red Cell Distribution Width 16.7H, Platelet Count 80L, Mean Platelet Volume 8.5, Neutrophils (%) (Auto) , Lymphocytes (%) (Auto) , Monocytes (%) (Auto) , Eosinophils (%) (Auto) , Basophils (%) (Auto) , Neutrophils % (Manual) [Pending], Lymphocytes % (Manual) [Pending], Platelet Estimate [Pending], Platelet Morphology [Pending], Sodium Level 146H, Potassium Level 3.6, Chloride Level 116H, Carbon Dioxide Level 20L, Anion Gap 10, Blood Urea Nitrogen 37H, Creatinine 1.4H, Estimat Glomerular Filtration Rate 56.1, Glucose Level 139H, Calcium Level 7.7L, Total Bilirubin 10.4H, Direct Bilirubin 8.4H, Aspartate Amino Transf (AST/SGOT) 85H, Alanine Aminotransferase (ALT/SGPT) 52, Alkaline Phosphatase 409H, Ammonia 75H, Total Protein 4.2L, Albumin 1.7L, Globulin 2.5, Albumin/Globulin Ratio 0.7L Height (Feet): 6 Height (Inches): 0.00 Weight (Pounds): 222 General Appearance: lethargic EENT: normal ENT inspection Neck: supple Cardiovascular: normal rate Respiratory/Chest: lungs clear Abdomen: non tender, soft, hypoactive bowel sounds Extremities: non-tender BARTOLO CHAPA May 31, 2017 10:13
[2017-05-31 10:41] LABS: ANISOCYTOSIS 1+; BAND NEUTROPHILS % (MANUAL) 0 % (0-8); BASOPHILS % (MANUAL) 0 % (0-2); EOSINOPHILS % (MANUAL) 0 % (0-3); HYPOCHROMASIA 2+; LYMPHOCYTES % (MANUAL) 3 % (20-45); MACROCYTES 3+; NEUTROPHILS % (MANUAL) 94 % (45-75); PLATELET ESTIMATE DECREASED; PLATELET MORPHOLOGY NORMAL; TOTAL CELLS COUNTED 100
[2017-05-31] MEDS: Thiamine 100mg tab ORAL SCH (12:11)
[2017-05-31] MEDS: Midodrine 10mg tab ORAL SCH ×3 (12:12→17:59)
[2017-05-31] MEDS: Nystatin Powder 100,000 units/gm 15gm TOPIC SCH ×3 (12:12→18:00)
[2017-05-31] MEDS: Vitamin D 1000 IU Tab ORAL SCH (12:12)
[2017-05-31] MEDS: Tamsulosin 0.4mg cap ORAL SCH ×2 (12:12→18:00)
--- NOTE | 2017-05-31 12:13 | Pulmonology Progress Note ---
Assessment/Plan Assessment/Plan ASSESSMENT: Respiratory distress, resolved probable pneumonia volume overload decompensated liver failure cirrhosis ascites altered mental status, improved. PLAN: worse mentally due to Ativan not SOB, off O2, sat ok CXR worse edema; reduce IVF disc w mom at bedside dc planning Subjective ROS Limited/Unobtainable: No Allergies: Coded Allergies: No Known Allergies (Unverified , 04/29/17) Objective Last 24 Hour Vital Signs Date Time Temp Pulse Resp B/P (MAP) Pulse Ox O2 Delivery O2 Flow Rate FiO2 05/31/17 08:26 95 Room Air 05/31/17 08:26 78 18 Room Air 05/31/17 08:26 Room Air 05/31/17 04:00 96.4 86 20 123/69 97 Room Air 05/31/17 00:00 96.4 86 18 142/68 95 Room Air 05/30/17 20:05 84 18 Room Air 05/30/17 20:05 Room Air 05/30/17 20:05 96 Room Air 05/30/17 20:00 97.0 89 20 123/63 98 Room Air 05/30/17 15:24 97.6 90 20 122/59 98 Objective jaundice and scleral icterus General Appearance: no acute distress HEENT: atraumatic Respiratory/Chest: crackles/rales Cardiovascular: normal rate Extremities: other - edema Laboratory Tests 05/31/17 05:33: White Blood Count 20.4H, Red Blood Count 2.23L, Hemoglobin 8.3L, Hematocrit 25.7L, Mean Corpuscular Volume 115H, Mean Corpuscular Hemoglobin 37.5H, Mean Corpuscular Hemoglobin Concent 32.4, Red Cell Distribution Width 16.7H, Platelet Count 80L, Mean Platelet Volume 8.5, Neutrophils (%) (Auto) , Lymphocytes (%) (Auto) , Monocytes (%) (Auto) , Eosinophils (%) (Auto) , Basophils (%) (Auto) , Differential Total Cells Counted 100, Neutrophils % ( Manual) 94H, Lymphocytes % (Manual) 3L, Monocytes % (Manual) 3, Eosinophils % ( Manual) 0, Basophils % (Manual) 0, Band Neutrophils 0, Platelet Estimate DecreasedL, Platelet Morphology Normal, Hypochromasia 2+, Anisocytosis 1+, Macrocytosis 3+, Sodium Level 146H, Potassium Level 3.6, Chloride Level 116H, Carbon Dioxide Level 20L, Anion Gap 10, Blood Urea Nitrogen 37H, Creatinine 1.4H , Estimat Glomerular Filtration Rate 56.1, Glucose Level 139H, Calcium Level 7.7L, Total Bilirubin 10.4H, Direct Bilirubin 8.4H, Aspartate Amino Transf (AST/ SGOT) 85H, Alanine Aminotransferase (ALT/SGPT) 52, Alkaline Phosphatase 409H, Ammonia 75H, Total Protein 4.2L, Albumin 1.7L, Globulin 2.5, Albumin/Globulin Ratio 0.7L Current Medications Medications (Trade) Dose Ordered Sig/Leonard Route PRN Reason Start Time Stop Time Status Last Admin Dose Admin Albuterol Sulfate (Proventil MDI) 2 puff BIDPRN PRN INH Shortness of Breath 05/30/17 17:00 06/23/17 16:59 Dextrose/Sodium Chloride 1,000 ml @ 100 mls/hr Q10H IV 05/30/17 17:00 06/27/17 16:59 05/31/17 03:00 Midodrine (Pro-Amatine) 10 mg THREE TIMES A DAY ORAL 05/30/17 18:00 06/24/17 08:59 05/30/17 18:38 Nystatin (Nystop Powder) 1 applic THREE TIMES A DAY TOPIC 05/30/17 18:00 06/28/17 12:59 05/30/17 17:55 Octreotide Acetate (SandoSTATIN) 100 mcg Q8HR SUBQ 05/30/17 22:00 06/25/17 21:59 05/31/17 05:15 Pantoprazole (Protonix) 40 mg DAILY ORAL 05/31/17 10:45 06/30/17 10:44 Piperacillin/ Tazobactam/ Dextrose 50 ml @ 12.5 mls/hr Q8HR@0400,1200,2000 IVPB 05/30/17 20:00 05/31/17 23:59 05/31/17 03:44 Prednisone (predniSONE) 40 mg DAILY ORAL 05/31/17 09:00 06/26/17 14:29 Rifaximin (Xifaxan) 550 mg EVERY 12 HOURS ORAL 05/30/17 21:00 06/29/17 09:29 05/30/17 21:07 Tamsulosin HCl (Flomax) 0.4 mg BID ORAL 05/30/17 18:00 06/27/17 21:59 05/30/17 17:55 Thiamine HCl (Vitamin B1) 100 mg DAILY ORAL 05/31/17 09:00 06/24/17 08:59 Tramadol HCl (Ultram) 50 mg Q6H PRN ORAL For Pain 05/30/17 17:00 06/06/17 16:59 Vitamin D (Vitamin D) 1,000 intlu DAILY ORAL 05/31/17 09:00 06/24/17 08:59 JAMES NAVARRO May 31, 2017 12:13
[2017-05-31 12:15] VITALS: BP 121/70
[2017-05-31] MEDS: Fluconazole 100mg tab ORAL SCH (15:21)
[2017-05-31 16:00] VITALS: BP 124/68
--- NOTE | 2017-05-31 19:07 | Infectious Diseases Prog Note ---
Assessment/Plan Problems: (1) HCAP (healthcare-associated pneumonia) Assessment & Plan: CHF VS pneumonia , improving on repeated CXR, S/P zosyn for 7 days , continue to monitor CXR , avoid aspiration (2) Sepsis Assessment & Plan: with significant leukocytosis, now increasing due to steroids , blood culture grew coag negative staph from one bottle most likely contaminant , monitor off antibiotics , taper steroids (3) Ascites due to alcoholic cirrhosis Assessment & Plan: with anasarca, recommend diuresis, and daily weight monitor , S/P paracentesis , fluids culture is negative (4) Liver cirrhosis, alcoholic Assessment & Plan: continue supportive care, GI is following (5) QAMAR (acute kidney injury) Assessment & Plan: suspect hepatorenal, monitor urine output, and avoid nephrotoxic medicine, renal service is following (6) Acute respiratory failure Assessment & Plan: improving , due to the above , off BIPAP, on nasal canula , monitor CXR, pulmonary is following (7) Candiduria Assessment & Plan: recommend to change Molina cath , will start Diflucan for two weeks Subjective Constitutional: Reports: fatigue HEENT: Reports: no symptoms Respiratory: Reports: no symptoms Breasts: Reports: no symptoms Cardiovascular: Reports: no symptoms Gastrointestinal/Abdominal: Reports: diarrhea, bloating Genitourinary: Reports: other - swallen scrotum Neurologic: Reports: weakness, confusion Psychiatric: Reports: depression Skin: Reports: no symptoms Endocrine: Reports: no symptoms Hematologic: Reports: no symptoms Allergies: Coded Allergies: No Known Allergies (Unverified , 04/29/17) Objective Vital Signs Last 24 Hour Vital Signs Date Time Temp Pulse Resp B/P (MAP) Pulse Ox O2 Delivery O2 Flow Rate FiO2 05/31/17 16:00 97.0 20 124/68 95 Room Air 05/31/17 12:15 97.4 20 121/70 99 Room Air 05/31/17 08:26 95 Room Air 05/31/17 08:26 78 18 Room Air 05/31/17 08:26 Room Air 05/31/17 04:00 96.4 86 20 123/69 97 Room Air 05/31/17 00:00 96.4 86 18 142/68 95 Room Air 05/30/17 20:05 84 18 Room Air 05/30/17 20:05 Room Air 05/30/17 20:05 96 Room Air 05/30/17 20:00 97.0 89 20 123/63 98 Room Air Height (Feet): 6 Height (Inches): 0.00 Weight (Pounds): 222 General Appearance: WD/WN, no acute distress HEENT: normocephalic, atraumatic, mucous membranes moist, PERRL, EOMI, pharynx normal, supple, no JVD, other - icteric sclera Respiratory/Chest: chest wall non-tender, normal breath sounds, no respiratory distress, no accessory muscle use, decreased breath sounds, crackles/rales Cardiovascular: normal peripheral pulses, normal rate, regular rhythm, no gallop/murmur, no JVD Abdomen: normal bowel sounds, soft, non tender, no organomegaly, non distended , no mass, no scars Extremities: no cyanosis, no clubbing Skin: no rash, no lesions, no ulcers Neurologic/Psychiatric: alert, responsive Laboratory Tests Test 05/31/17 05:33 White Blood Count 20.4 K/UL (4.8-10.8) H Red Blood Count 2.23 M/UL (4.70-6.10) L Hemoglobin 8.3 G/DL (14.2-18.0) L Hematocrit 25.7 % (42.0-52.0) L Mean Corpuscular Volume 115 FL (80-99) H Mean Corpuscular Hemoglobin 37.5 PG (27.0-31.0) H Mean Corpuscular Hemoglobin Concent 32.4 G/DL (32.0-36.0) Red Cell Distribution Width 16.7 % (11.6-14.8) H Platelet Count 80 K/UL (150-450) L Mean Platelet Volume 8.5 FL (6.5-10.1) Neutrophils (%) (Auto) % (45.0-75.0) Lymphocytes (%) (Auto) % (20.0-45.0) Monocytes (%) (Auto) % (1.0-10.0) Eosinophils (%) (Auto) % (0.0-3.0) Basophils (%) (Auto) % (0.0-2.0) Differential Total Cells Counted 100 Neutrophils % (Manual) 94 % (45-75) H Lymphocytes % (Manual) 3 % (20-45) L Monocytes % (Manual) 3 % (1-10) Eosinophils % (Manual) 0 % (0-3) Basophils % (Manual) 0 % (0-2) Band Neutrophils 0 % (0-8) Platelet Estimate Decreased L Platelet Morphology Normal Hypochromasia 2+ Anisocytosis 1+ Macrocytosis 3+ Sodium Level 146 MMOL/L (136-145) H Potassium Level 3.6 MMOL/L (3.5-5.1) Chloride Level 116 MMOL/L (98-107) H Carbon Dioxide Level 20 MMOL/L (21-32) L Anion Gap 10 mmol/L (5-15) Blood Urea Nitrogen 37 mg/dL (7-18) H Creatinine 1.4 MG/DL (0.55-1.30) H Estimat Glomerular Filtration Rate 56.1 mL/min (>60) Glucose Level 139 MG/DL (74-106) H Calcium Level 7.7 MG/DL (8.5-10.1) L Total Bilirubin 10.4 MG/DL (0.2-1.0) H Direct Bilirubin 8.4 MG/DL (0.0-0.3) H Aspartate Amino Transf (AST/SGOT) 85 U/L (15-37) H Alanine Aminotransferase (ALT/SGPT) 52 U/L (12-78) Alkaline Phosphatase 409 U/L (46-116) H Ammonia 75 umol/L (11.2-31.7) H Total Protein 4.2 G/DL (6.4-8.2) L Albumin 1.7 G/DL (3.4-5.0) L Globulin 2.5 g/dL Albumin/Globulin Ratio 0.7 (1.0-2.7) L Current Medications Medications (Trade) Dose Ordered Sig/Leonard Route PRN Reason Start Time Stop Time Status Last Admin Dose Admin Albuterol Sulfate (Proventil MDI) 2 puff BIDPRN PRN INH Shortness of Breath 05/30/17 17:00 06/23/17 16:59 Dextrose/Sodium Chloride 1,000 ml @ 50 mls/hr Q20H IV 05/31/17 17:00 06/30/17 16:59 05/31/17 16:39 Fluconazole (Diflucan) 200 mg DAILY ORAL 05/31/17 15:00 06/07/17 14:59 05/31/17 15:21 Midodrine (Pro-Amatine) 10 mg THREE TIMES A DAY ORAL 05/30/17 18:00 06/24/17 08:59 05/31/17 17:59 Nystatin (Nystop Powder) 1 applic THREE TIMES A DAY TOPIC 05/30/17 18:00 06/28/17 12:59 05/31/17 18:00 Octreotide Acetate (SandoSTATIN) 100 mcg Q8HR SUBQ 05/30/17 22:00 06/25/17 21:59 05/31/17 14:09 Pantoprazole (Protonix) 40 mg DAILY ORAL 05/31/17 10:45 06/30/17 10:44 05/31/17 12:12 Piperacillin/ Tazobactam/ Dextrose 50 ml @ 12.5 mls/hr Q8HR@0400,1200,2000 IVPB 05/30/17 20:00 05/31/17 23:59 05/31/17 12:24 Prednisone (predniSONE) 40 mg DAILY ORAL 05/31/17 09:00 06/26/17 14:29 05/31/17 12:11 Rifaximin (Xifaxan) 550 mg EVERY 12 HOURS ORAL 05/30/17 21:00 06/29/17 09:29 05/31/17 12:11 Tamsulosin HCl (Flomax) 0.4 mg BID ORAL 05/30/17 18:00 06/27/17 21:59 05/31/17 18:00 Thiamine HCl (Vitamin B1) 100 mg DAILY ORAL 05/31/17 09:00 06/24/17 08:59 05/31/17 12:11 Tramadol HCl (Ultram) 50 mg Q6H PRN ORAL For Pain 05/30/17 17:00 06/06/17 16:59 Vitamin D (Vitamin D) 1,000 intlu DAILY ORAL 05/31/17 09:00 06/24/17 08:59 05/31/17 12:12 Janae Lopez M.D. May 31, 2017 19:07
[2017-05-31 20:00] VITALS: BP 132/65
--- NOTE | 2017-05-31 22:17 | General Progress Note ---
Assessment/Plan Assessment/Plan IMPRESSION/PLAN 1. Leukocytosis 2/2 sepsis. ID following 2. Thrombocytopenia, multifactorial. The patient has a history of liver disease. Platelet goal is above 20K --> Give plts if count drops to 10K or if count is 20K and pt febrile 3. Anemia of chronic disease. Watch counts, transfuse if hgb below 7. --> continue to monitor closely, hgb is downtrending 4. Anemia of kidney disease. 5. History of alcohol abuse. 6. Alcoholic liver cirrhosis. 7. Bilirubinemia. Subjective ROS Limited/Unobtainable: Yes Allergies: Coded Allergies: No Known Allergies (Unverified , 04/29/17) Subjective sleepy Objective Last 24 Hour Vital Signs Date Time Temp Pulse Resp B/P (MAP) Pulse Ox O2 Delivery O2 Flow Rate FiO2 05/31/17 20:00 97.0 90 21 132/65 95 Room Air 05/31/17 19:26 96 Room Air 05/31/17 19:26 80 18 Room Air 05/31/17 19:26 Room Air 05/31/17 16:00 97.0 20 124/68 95 Room Air 05/31/17 12:15 97.4 20 121/70 99 Room Air 05/31/17 08:26 95 Room Air 05/31/17 08:26 78 18 Room Air 05/31/17 08:26 Room Air 05/31/17 04:00 96.4 86 20 123/69 97 Room Air 05/31/17 00:00 96.4 86 18 142/68 95 Room Air Intake and Output 05/31/17 06/01/17 19:00 07:00 Intake Total 402.5 ml Balance 402.5 ml Intake Oral 240 ml IV Total 162.5 ml Laboratory Tests 05/31/17 05:33: White Blood Count 20.4H, Red Blood Count 2.23L, Hemoglobin 8.3L, Hematocrit 25.7L, Mean Corpuscular Volume 115H, Mean Corpuscular Hemoglobin 37.5H, Mean Corpuscular Hemoglobin Concent 32.4, Red Cell Distribution Width 16.7H, Platelet Count 80L, Mean Platelet Volume 8.5, Neutrophils (%) (Auto) , Lymphocytes (%) (Auto) , Monocytes (%) (Auto) , Eosinophils (%) (Auto) , Basophils (%) (Auto) , Differential Total Cells Counted 100, Neutrophils % ( Manual) 94H, Lymphocytes % (Manual) 3L, Monocytes % (Manual) 3, Eosinophils % ( Manual) 0, Basophils % (Manual) 0, Band Neutrophils 0, Platelet Estimate DecreasedL, Platelet Morphology Normal, Hypochromasia 2+, Anisocytosis 1+, Macrocytosis 3+, Sodium Level 146H, Potassium Level 3.6, Chloride Level 116H, Carbon Dioxide Level 20L, Anion Gap 10, Blood Urea Nitrogen 37H, Creatinine 1.4H , Estimat Glomerular Filtration Rate 56.1, Glucose Level 139H, Calcium Level 7.7L, Total Bilirubin 10.4H, Direct Bilirubin 8.4H, Aspartate Amino Transf (AST/ SGOT) 85H, Alanine Aminotransferase (ALT/SGPT) 52, Alkaline Phosphatase 409H, Ammonia 75H, Total Protein 4.2L, Albumin 1.7L, Globulin 2.5, Albumin/Globulin Ratio 0.7L Height (Feet): 6 Height (Inches): 0.00 Weight (Pounds): 222 General Appearance: no apparent distress EENT: normal ENT inspection Neck: normal alignment Respiratory/Chest: chest wall non-tender Skin: warm/dry Joshua Hurley May 31, 2017 22:17
[2017-06-01] VITALS: BP 120/69
[2017-06-01 04:00] VITALS: BP 134/74
[2017-06-01] MEDS: SandoSTATIN 100mcg/ml amp SUBQ SCH ×3 (06:11→21:21)
--- NOTE | 2017-06-01 06:21 | General Progress Note ---
Assessment/Plan Problem List: (1) Alcohol abuse ICD Codes: F10.10 - Alcohol abuse, uncomplicated SNOMED: 88807594 (2) Liver failure ICD Codes: K72.90 - Hepatic failure, unspecified without coma SNOMED: 81886157 (3) Ascites due to alcoholic cirrhosis ICD Codes: K70.31 - Alcoholic cirrhosis of liver with ascites SNOMED: [id number] (4) Jaundice of recent onset ICD Codes: R17 - Unspecified jaundice SNOMED: 37010725 Assessment/Plan decreased prednisone to 30 mg cont xifaxan cont midodrine and octreotide 2 gm na diet avoid diuretics at this time Subjective ROS Limited/Unobtainable: Yes Allergies: Coded Allergies: No Known Allergies (Unverified , 04/29/17) Subjective more alert no c/o Objective Last 24 Hour Vital Signs Date Time Temp Pulse Resp B/P (MAP) Pulse Ox O2 Delivery O2 Flow Rate FiO2 06/01/17 04:00 96.4 92 20 134/74 94 Room Air 06/01/17 00:00 97.2 85 20 120/69 96 Room Air 05/31/17 20:00 97.0 90 21 132/65 95 Room Air 05/31/17 19:26 96 Room Air 05/31/17 19:26 80 18 Room Air 05/31/17 19:26 Room Air 05/31/17 16:00 97.0 20 124/68 95 Room Air 05/31/17 12:15 97.4 20 121/70 99 Room Air 05/31/17 08:26 95 Room Air 05/31/17 08:26 78 18 Room Air 05/31/17 08:26 Room Air Height (Feet): 6 Height (Inches): 0.00 Weight (Pounds): 222 General Appearance: confused EENT: scleral icterus Neck: supple Cardiovascular: normal rate Respiratory/Chest: decreased breath sounds Abdomen: normal bowel sounds, non tender, soft Extremities: non-tender BARTOLO CHAPA Jun 01, 2017 06:21
[2017-06-01 08:01] VITALS: BP 132/77
[2017-06-01 08:25] LABS: INR 1.3 (0.9-1.1)
[2017-06-01 08:27] LABS: MEAN CORPUSCULAR HEMOGLOBIN 37.1 PG (27.0-31.0); MEAN CORPUSCULAR HGB CONC 31.4 G/DL (32.0-36.0); MEAN CORPUSCULAR VOLUME 118 FL (80-99); MEAN PLATELET VOLUME 7.9 FL (6.5-10.1); PLATELET COUNT 77 K/UL (150-450); RED BLOOD COUNT 2.44 M/UL (4.70-6.10); RED CELL DISTRIBUTION WIDTH 16.1 % (11.6-14.8)
[2017-06-01 08:30] LABS: WHITE BLOOD COUNT 22.1 K/UL (4.8-10.8)
[2017-06-01] MEDS: Thiamine 100mg tab ORAL SCH (08:33)
[2017-06-01] MEDS: Vitamin D 1000 IU Tab ORAL SCH (08:33)
[2017-06-01] MEDS: Midodrine 10mg tab ORAL SCH ×3 (08:33→18:00)
[2017-06-01] MEDS: Nystatin Powder 100,000 units/gm 15gm TOPIC SCH ×3 (08:33→18:10)
[2017-06-01] MEDS: Tamsulosin 0.4mg cap ORAL SCH ×2 (08:33→18:10)
[2017-06-01] MEDS: Fluconazole 100mg tab ORAL SCH (08:33)
[2017-06-01 09:40] LABS: ALANINE AMINOTRANSFERASE 60 U/L (12-78); ALBUMIN/GLOBULIN RATIO 0.7 (1.0-2.7); ANION GAP 12 mmol/L (5-15); ASPARTATE AMINO TRANSFERASE 107 U/L (15-37); CALCIUM 7.8 MG/DL (8.5-10.1); CARBON DIOXIDE 18 MMOL/L (21-32); CHLORIDE 116 MMOL/L (98-107); CREATININE 1.4 MG/DL (0.55-1.30); GLOMERULAR FILTRATION RATE 56.1 mL/min (>60); POTASSIUM 3.8 MMOL/L (3.5-5.1); SODIUM 146 MMOL/L (136-145); TOTAL PROTEIN 4.2 G/DL (6.4-8.2)
[2017-06-01 09:45] LABS: BILIRUBIN,DIRECT 8.5 MG/DL (0.0-0.3)
--- NOTE | 2017-06-01 09:49 | Nephrology Progress Note ---
Assessment/Plan Problem List: (1) Liver cirrhosis, alcoholic (2) Ascites due to alcoholic cirrhosis (3) Renal failure (ARF), acute on chronic Assessment Renal failure on admit , likely hepatorenal- Cr zaira to 2.5 now back down to 1.4 pneumonia, leukocytosis h/o low Na due to anasarca High K , Kayexelate given Jaundice Anemia low alb Plan Plan: K supplement Antibiotics- avoid nephrotoxics- monitor renal parameters optimize pulmonary and renal and hepatic status as possible. per consultants Subjective ROS Limited/Unobtainable: No Constitutional: Reports: malaise, weakness Objective Objective Last 24 Hour Vital Signs Date Time Temp Pulse Resp B/P (MAP) Pulse Ox O2 Delivery O2 Flow Rate FiO2 06/01/17 08:01 97.3 103 21 132/77 97 Room Air 06/01/17 07:00 Room Air 06/01/17 07:00 97 20 Room Air 06/01/17 07:00 96 Room Air 06/01/17 04:00 96.4 92 20 134/74 94 Room Air 06/01/17 00:00 97.2 85 20 120/69 96 Room Air 05/31/17 20:00 97.0 90 21 132/65 95 Room Air 05/31/17 19:26 96 Room Air 05/31/17 19:26 80 18 Room Air 05/31/17 19:26 Room Air 05/31/17 16:00 97.0 20 124/68 95 Room Air 05/31/17 12:15 97.4 20 121/70 99 Room Air Intake and Output 06/01/17 06/02/17 19:00 07:00 Intake Total 120 ml Balance 120 ml Intake Oral 120 ml Laboratory Tests 06/01/17 06:07: White Blood Count 22.1*H, Red Blood Count 2.44L, Hemoglobin 9.0L, Hematocrit 28.8L, Mean Corpuscular Volume 118H, Mean Corpuscular Hemoglobin 37.1H, Mean Corpuscular Hemoglobin Concent 31.4L, Red Cell Distribution Width 16.1H, Platelet Count 77L, Mean Platelet Volume 7.9, Neutrophils (%) (Auto) , Lymphocytes (%) (Auto) , Monocytes (%) (Auto) , Eosinophils (%) (Auto) , Basophils (%) (Auto) , Neutrophils % (Manual) [Pending], Lymphocytes % (Manual) [Pending], Platelet Estimate [Pending], Platelet Morphology [Pending], Prothrombin Time 14.0H, Prothromb Time International Ratio 1.3H, Sodium Level 146H, Potassium Level 3.8, Chloride Level 116H, Carbon Dioxide Level 18L, Anion Gap 12, Blood Urea Nitrogen 35H, Creatinine 1.4H, Estimat Glomerular Filtration Rate 56.1, Glucose Level 178H, Calcium Level 7.8L, Total Bilirubin 10.0H, Direct Bilirubin 8.5H, Aspartate Amino Transf (AST/SGOT) 107H, Alanine Aminotransferase (ALT/SGPT) 60, Alkaline Phosphatase 527H, Total Protein 4.2L, Albumin 1.7L, Globulin 2.5, Albumin/Globulin Ratio 0.7L Height (Feet): 6 Height (Inches): 0.00 Weight (Pounds): 222 General Appearance: no apparent distress Objective no other changes MIKAELA AYOUB Jun 01, 2017 09:49
[2017-06-01 10:46] LABS: ANISOCYTOSIS 1+; BAND NEUTROPHILS % (MANUAL) 0 % (0-8); BASOPHILS % (MANUAL) 0 % (0-2); EOSINOPHILS % (MANUAL) 0 % (0-3); HYPOCHROMASIA 2+; LYMPHOCYTES % (MANUAL) 3 % (20-45); MACROCYTES 2+; NEUTROPHILS % (MANUAL) 95 % (45-75); PLATELET ESTIMATE DECREASED; PLATELET MORPHOLOGY NORMAL; TOTAL CELLS COUNTED 100
[2017-06-01 12:15] VITALS: BP 104/65
[2017-06-01] MEDS: D5NS 1,000 ML IV SCH (13:00)
--- NOTE | 2017-06-01 13:22 | Pulmonology Progress Note ---
Assessment/Plan Assessment/Plan ASSESSMENT: Respiratory distress, resolved probable pneumonia volume overload decompensated liver failure cirrhosis ascites altered mental status, improved. PLAN: less confused not SOB, off O2, sat ok CXR reviewed, slightly worse dc ivf disc w mom at bedside dc planning Subjective Respiratory: Denies: productive cough, shortness of breath Allergies: Coded Allergies: No Known Allergies (Unverified , 04/29/17) Objective Last 24 Hour Vital Signs Date Time Temp Pulse Resp B/P (MAP) Pulse Ox O2 Delivery O2 Flow Rate FiO2 06/01/17 12:15 98.5 73 20 104/65 99 Room Air 06/01/17 08:01 97.3 103 21 132/77 97 Room Air 06/01/17 07:00 Room Air 06/01/17 07:00 97 20 Room Air 06/01/17 07:00 96 Room Air 06/01/17 04:00 96.4 92 20 134/74 94 Room Air 06/01/17 00:00 97.2 85 20 120/69 96 Room Air 05/31/17 20:00 97.0 90 21 132/65 95 Room Air 05/31/17 19:26 96 Room Air 05/31/17 19:26 80 18 Room Air 05/31/17 19:26 Room Air 05/31/17 16:00 97.0 20 124/68 95 Room Air Intake and Output 06/01/17 06/02/17 19:00 07:00 Intake Total 370 ml Balance 370 ml Intake Oral 120 ml IV Total 250 ml # Bowel Movements 2 Objective jaundice and scleral icterus General Appearance: no acute distress HEENT: atraumatic Respiratory/Chest: lungs clear Cardiovascular: normal rate Laboratory Tests 06/01/17 06:07: White Blood Count 22.1*H, Red Blood Count 2.44L, Hemoglobin 9.0L, Hematocrit 28.8L, Mean Corpuscular Volume 118H, Mean Corpuscular Hemoglobin 37.1H, Mean Corpuscular Hemoglobin Concent 31.4L, Red Cell Distribution Width 16.1H, Platelet Count 77L, Mean Platelet Volume 7.9, Neutrophils (%) (Auto) , Lymphocytes (%) (Auto) , Monocytes (%) (Auto) , Eosinophils (%) (Auto) , Basophils (%) (Auto) , Differential Total Cells Counted 100, Neutrophils % ( Manual) 95H, Lymphocytes % (Manual) 3L, Monocytes % (Manual) 2, Eosinophils % ( Manual) 0, Basophils % (Manual) 0, Band Neutrophils 0, Platelet Estimate DecreasedL, Platelet Morphology Normal, Hypochromasia 2+, Anisocytosis 1+, Macrocytosis 2+, Prothrombin Time 14.0H, Prothromb Time International Ratio 1.3H , Sodium Level 146H, Potassium Level 3.8, Chloride Level 116H, Carbon Dioxide Level 18L, Anion Gap 12, Blood Urea Nitrogen 35H, Creatinine 1.4H, Estimat Glomerular Filtration Rate 56.1, Glucose Level 178H, Calcium Level 7.8L, Total Bilirubin 10.0H, Direct Bilirubin 8.5H, Aspartate Amino Transf (AST/SGOT) 107H, Alanine Aminotransferase (ALT/SGPT) 60, Alkaline Phosphatase 527H, Total Protein 4.2L, Albumin 1.7L, Globulin 2.5, Albumin/Globulin Ratio 0.7L Current Medications Medications (Trade) Dose Ordered Sig/Leonard Route PRN Reason Start Time Stop Time Status Last Admin Dose Admin Albuterol Sulfate (Proventil MDI) 2 puff BIDPRN PRN INH Shortness of Breath 05/30/17 17:00 06/23/17 16:59 Dextrose/Sodium Chloride 1,000 ml @ 50 mls/hr Q20H IV 05/31/17 17:00 06/30/17 16:59 05/31/17 16:39 Fluconazole (Diflucan) 200 mg DAILY ORAL 05/31/17 15:00 06/07/17 14:59 06/01/17 08:33 Midodrine (Pro-Amatine) 10 mg THREE TIMES A DAY ORAL 05/30/17 18:00 06/24/17 08:59 05/31/17 17:59 Nystatin (Nystop Powder) 1 applic THREE TIMES A DAY TOPIC 05/30/17 18:00 06/28/17 12:59 06/01/17 08:33 Octreotide Acetate (SandoSTATIN) 100 mcg Q8HR SUBQ 05/30/17 22:00 06/25/17 21:59 06/01/17 06:11 Pantoprazole (Protonix) 40 mg DAILY ORAL 05/31/17 10:45 06/30/17 10:44 06/01/17 08:32 Prednisone (predniSONE) 30 mg DAILY ORAL 06/01/17 09:00 07/01/17 08:59 06/01/17 08:32 Rifaximin (Xifaxan) 550 mg EVERY 12 HOURS ORAL 05/30/17 21:00 06/29/17 09:29 06/01/17 08:33 Tamsulosin HCl (Flomax) 0.4 mg BID ORAL 05/30/17 18:00 06/27/17 21:59 06/01/17 08:33 Thiamine HCl (Vitamin B1) 100 mg DAILY ORAL 05/31/17 09:00 06/24/17 08:59 06/01/17 08:33 Tramadol HCl (Ultram) 50 mg Q6H PRN ORAL For Pain 05/30/17 17:00 06/06/17 16:59 06/01/17 09:39 Vitamin D (Vitamin D) 1,000 intlu DAILY ORAL 05/31/17 09:00 06/24/17 08:59 06/01/17 08:33 JAMES NAVARRO Jun 01, 2017 13:22
[2017-06-01] MEDS ORDERED: D5NS 1000ml IV ONE (15:47)
[2017-06-01] MEDS ORDERED: NS 275ml ONE (15:47)
[2017-06-01 16:30] VITALS: BP 141/77
[2017-06-01 20:00] VITALS: BP 111/74
--- NOTE | 2017-06-01 20:23 | Infectious Diseases Prog Note ---
Assessment/Plan Problems: (1) HCAP (healthcare-associated pneumonia) Assessment & Plan: S/P zosyn for 7 days , repeated CXR yesterday looks a little worse due to fluids overload , needs more diuresis with fluids restriction (2) Sepsis Assessment & Plan: with significant leukocytosis, now increasing due to steroids , blood culture grew coag negative staph from one bottle most likely contaminant , monitor off antibiotics , taper steroids, monitor WBC (3) Ascites due to alcoholic cirrhosis Assessment & Plan: with anasarca, recommend diuresis, and daily weight monitor , S/P paracentesis , fluids culture is negative (4) Liver cirrhosis, alcoholic Assessment & Plan: continue supportive care, GI is following (5) QAMAR (acute kidney injury) Assessment & Plan: suspect hepatorenal, monitor urine output, and avoid nephrotoxic medicine, renal service is following (6) Acute respiratory failure Assessment & Plan: improving , due to the above , off BIPAP, on nasal canula , monitor CXR, pulmonary is following (7) Candiduria Assessment & Plan: recommend to change Molina cath , will start Diflucan for two weeks Subjective Constitutional: Reports: fatigue HEENT: Reports: no symptoms Respiratory: Reports: no symptoms Breasts: Reports: no symptoms Cardiovascular: Reports: no symptoms Gastrointestinal/Abdominal: Reports: diarrhea, bloating Genitourinary: Reports: no symptoms Neurologic: Reports: no symptoms Psychiatric: Reports: depression Skin: Reports: no symptoms Endocrine: Reports: no symptoms Hematologic: Reports: no symptoms Musculoskeletal: Reports: swelling Allergies: Coded Allergies: No Known Allergies (Unverified , 04/29/17) Objective Vital Signs Last 24 Hour Vital Signs Date Time Temp Pulse Resp B/P (MAP) Pulse Ox O2 Delivery O2 Flow Rate FiO2 06/01/17 16:30 96.7 78 18 141/77 95 Room Air 06/01/17 12:15 98.5 73 20 104/65 99 Room Air 06/01/17 08:01 97.3 103 21 132/77 97 Room Air 06/01/17 07:00 Room Air 06/01/17 07:00 97 20 Room Air 06/01/17 07:00 96 Room Air 06/01/17 04:00 96.4 92 20 134/74 94 Room Air 06/01/17 00:00 97.2 85 20 120/69 96 Room Air Height (Feet): 6 Height (Inches): 0.00 Weight (Pounds): 222 General Appearance: WD/WN, no acute distress HEENT: normocephalic, atraumatic, mucous membranes moist, PERRL Respiratory/Chest: chest wall non-tender, normal breath sounds, no respiratory distress, no accessory muscle use, decreased breath sounds, crackles/rales Cardiovascular: normal peripheral pulses, normal rate, regular rhythm, no gallop/murmur, no JVD Abdomen: normal bowel sounds, soft, non tender, no organomegaly, no mass, no scars, hypoactive bowel sounds, distended Extremities: no cyanosis, no clubbing Skin: no rash, no lesions, no ulcers Neurologic/Psychiatric: alert, oriented x 3, responsive Lymphatic: no neck adenopathy, no groin adenopathy Laboratory Tests Test 06/01/17 06:07 White Blood Count 22.1 K/UL (4.8-10.8) *H Red Blood Count 2.44 M/UL (4.70-6.10) L Hemoglobin 9.0 G/DL (14.2-18.0) L Hematocrit 28.8 % (42.0-52.0) L Mean Corpuscular Volume 118 FL (80-99) H Mean Corpuscular Hemoglobin 37.1 PG (27.0-31.0) H Mean Corpuscular Hemoglobin Concent 31.4 G/DL (32.0-36.0) L Red Cell Distribution Width 16.1 % (11.6-14.8) H Platelet Count 77 K/UL (150-450) L Mean Platelet Volume 7.9 FL (6.5-10.1) Neutrophils (%) (Auto) % (45.0-75.0) Lymphocytes (%) (Auto) % (20.0-45.0) Monocytes (%) (Auto) % (1.0-10.0) Eosinophils (%) (Auto) % (0.0-3.0) Basophils (%) (Auto) % (0.0-2.0) Differential Total Cells Counted 100 Neutrophils % (Manual) 95 % (45-75) H Lymphocytes % (Manual) 3 % (20-45) L Monocytes % (Manual) 2 % (1-10) Eosinophils % (Manual) 0 % (0-3) Basophils % (Manual) 0 % (0-2) Band Neutrophils 0 % (0-8) Platelet Estimate Decreased L Platelet Morphology Normal Hypochromasia 2+ Anisocytosis 1+ Macrocytosis 2+ Prothrombin Time 14.0 SEC (9.30-11.50) H Prothromb Time International Ratio 1.3 (0.9-1.1) H Sodium Level 146 MMOL/L (136-145) H Potassium Level 3.8 MMOL/L (3.5-5.1) Chloride Level 116 MMOL/L (98-107) H Carbon Dioxide Level 18 MMOL/L (21-32) L Anion Gap 12 mmol/L (5-15) Blood Urea Nitrogen 35 mg/dL (7-18) H Creatinine 1.4 MG/DL (0.55-1.30) H Estimat Glomerular Filtration Rate 56.1 mL/min (>60) Glucose Level 178 MG/DL (74-106) H Calcium Level 7.8 MG/DL (8.5-10.1) L Total Bilirubin 10.0 MG/DL (0.2-1.0) H Direct Bilirubin 8.5 MG/DL (0.0-0.3) H Aspartate Amino Transf (AST/SGOT) 107 U/L (15-37) H Alanine Aminotransferase (ALT/SGPT) 60 U/L (12-78) Alkaline Phosphatase 527 U/L (46-116) H Total Protein 4.2 G/DL (6.4-8.2) L Albumin 1.7 G/DL (3.4-5.0) L Globulin 2.5 g/dL Albumin/Globulin Ratio 0.7 (1.0-2.7) L Current Medications Medications (Trade) Dose Ordered Sig/Leonard Route PRN Reason Start Time Stop Time Status Last Admin Dose Admin Albuterol Sulfate (Proventil MDI) 2 puff BIDPRN PRN INH Shortness of Breath 05/30/17 17:00 06/23/17 16:59 Fluconazole (Diflucan) 200 mg DAILY ORAL 05/31/17 15:00 06/07/17 14:59 06/01/17 08:33 Midodrine (Pro-Amatine) 10 mg THREE TIMES A DAY ORAL 05/30/17 18:00 06/24/17 08:59 06/01/17 14:21 Nystatin (Nystop Powder) 1 applic THREE TIMES A DAY TOPIC 05/30/17 18:00 06/28/17 12:59 06/01/17 18:10 Octreotide Acetate (SandoSTATIN) 100 mcg Q8HR SUBQ 05/30/17 22:00 06/25/17 21:59 06/01/17 14:22 Pantoprazole (Protonix) 40 mg DAILY ORAL 05/31/17 10:45 06/30/17 10:44 06/01/17 08:32 Prednisone (predniSONE) 30 mg DAILY ORAL 06/01/17 09:00 07/01/17 08:59 06/01/17 08:32 Rifaximin (Xifaxan) 550 mg EVERY 12 HOURS ORAL 05/30/17 21:00 06/29/17 09:29 06/01/17 08:33 Tamsulosin HCl (Flomax) 0.4 mg BID ORAL 05/30/17 18:00 06/27/17 21:59 06/01/17 18:10 Thiamine HCl (Vitamin B1) 100 mg DAILY ORAL 05/31/17 09:00 06/24/17 08:59 06/01/17 08:33 Tramadol HCl (Ultram) 50 mg Q6H PRN ORAL For Pain 05/30/17 17:00 06/06/17 16:59 06/01/17 09:39 Vitamin D (Vitamin D) 1,000 intlu DAILY ORAL 05/31/17 09:00 06/24/17 08:59 06/01/17 08:33 Janae Lopez M.D. Jun 01, 2017 20:23
--- NOTE | 2017-06-01 21:31 | General Progress Note ---
Assessment/Plan Assessment/Plan IMPRESSION/PLAN 1. Leukocytosis 2/2 steroid as well as infection. ID following. Now off abx. 2. Thrombocytopenia, multifactorial. The patient has a history of liver disease. Platelet goal is above 20K --> Give plts if count drops to 10K or if count is 20K and pt febrile 3. Anemia of chronic disease. Watch counts, transfuse if hgb below 7. --> continue to monitor closely, hgb is downtrending 4. Anemia of kidney disease. 5. History of alcohol abuse. 6. Alcoholic liver cirrhosis. 7. Bilirubinemia. Subjective Allergies: Coded Allergies: No Known Allergies (Unverified , 04/29/17) All Systems: reviewed and negative except above Subjective no major changes Objective Last 24 Hour Vital Signs Date Time Temp Pulse Resp B/P (MAP) Pulse Ox O2 Delivery O2 Flow Rate FiO2 06/01/17 20:08 97 Room Air 06/01/17 20:08 79 20 Room Air 06/01/17 20:08 Room Air 06/01/17 20:00 98.6 77 20 111/74 95 Room Air 06/01/17 16:30 96.7 78 18 141/77 95 Room Air 06/01/17 12:15 98.5 73 20 104/65 99 Room Air 06/01/17 08:01 97.3 103 21 132/77 97 Room Air 06/01/17 07:00 Room Air 06/01/17 07:00 97 20 Room Air 06/01/17 07:00 96 Room Air 06/01/17 04:00 96.4 92 20 134/74 94 Room Air 06/01/17 00:00 97.2 85 20 120/69 96 Room Air Intake and Output 06/01/17 06/02/17 19:00 07:00 Intake Total 810 ml Output Total 500 ml Balance 310 ml Intake Oral 560 ml IV Total 250 ml Output Urine Total 500 ml # Bowel Movements 2 Laboratory Tests 06/01/17 06:07: White Blood Count 22.1*H, Red Blood Count 2.44L, Hemoglobin 9.0L, Hematocrit 28.8L, Mean Corpuscular Volume 118H, Mean Corpuscular Hemoglobin 37.1H, Mean Corpuscular Hemoglobin Concent 31.4L, Red Cell Distribution Width 16.1H, Platelet Count 77L, Mean Platelet Volume 7.9, Neutrophils (%) (Auto) , Lymphocytes (%) (Auto) , Monocytes (%) (Auto) , Eosinophils (%) (Auto) , Basophils (%) (Auto) , Differential Total Cells Counted 100, Neutrophils % ( Manual) 95H, Lymphocytes % (Manual) 3L, Monocytes % (Manual) 2, Eosinophils % ( Manual) 0, Basophils % (Manual) 0, Band Neutrophils 0, Platelet Estimate DecreasedL, Platelet Morphology Normal, Hypochromasia 2+, Anisocytosis 1+, Macrocytosis 2+, Prothrombin Time 14.0H, Prothromb Time International Ratio 1.3H , Sodium Level 146H, Potassium Level 3.8, Chloride Level 116H, Carbon Dioxide Level 18L, Anion Gap 12, Blood Urea Nitrogen 35H, Creatinine 1.4H, Estimat Glomerular Filtration Rate 56.1, Glucose Level 178H, Calcium Level 7.8L, Total Bilirubin 10.0H, Direct Bilirubin 8.5H, Aspartate Amino Transf (AST/SGOT) 107H, Alanine Aminotransferase (ALT/SGPT) 60, Alkaline Phosphatase 527H, Total Protein 4.2L, Albumin 1.7L, Globulin 2.5, Albumin/Globulin Ratio 0.7L Height (Feet): 6 Height (Inches): 0.00 Weight (Pounds): 222 General Appearance: no apparent distress EENT: normal ENT inspection Neck: normal alignment Cardiovascular: normal peripheral pulses Abdomen: normal bowel sounds Extremities: normal inspection Joshua Hurley Jun 01, 2017 21:31
--- NOTE | 2017-06-01 23:20 | General Progress Note ---
Assessment/Plan Status: stable Assessment/Plan hepato encephalopathy dc remeron dcativan Subjective Neurologic/Psychiatric: Reports: anxiety, depressed, emotional problems Allergies: Coded Allergies: No Known Allergies (Unverified , 04/29/17) Subjective the pt is more alert not psychotic Objective Last 24 Hour Vital Signs Date Time Temp Pulse Resp B/P (MAP) Pulse Ox O2 Delivery O2 Flow Rate FiO2 06/01/17 20:08 97 Room Air 06/01/17 20:08 79 20 Room Air 06/01/17 20:08 Room Air 06/01/17 20:00 98.6 77 20 111/74 95 Room Air 06/01/17 16:30 96.7 78 18 141/77 95 Room Air 06/01/17 12:15 98.5 73 20 104/65 99 Room Air 06/01/17 08:01 97.3 103 21 132/77 97 Room Air 06/01/17 07:00 Room Air 06/01/17 07:00 97 20 Room Air 06/01/17 07:00 96 Room Air 06/01/17 04:00 96.4 92 20 134/74 94 Room Air 06/01/17 00:00 97.2 85 20 120/69 96 Room Air Intake and Output 06/01/17 06/02/17 19:00 07:00 Intake Total 810 ml Output Total 500 ml Balance 310 ml Intake Oral 560 ml IV Total 250 ml Output Urine Total 500 ml # Bowel Movements 2 Laboratory Tests 06/01/17 06:07: White Blood Count 22.1*H, Red Blood Count 2.44L, Hemoglobin 9.0L, Hematocrit 28.8L, Mean Corpuscular Volume 118H, Mean Corpuscular Hemoglobin 37.1H, Mean Corpuscular Hemoglobin Concent 31.4L, Red Cell Distribution Width 16.1H, Platelet Count 77L, Mean Platelet Volume 7.9, Neutrophils (%) (Auto) , Lymphocytes (%) (Auto) , Monocytes (%) (Auto) , Eosinophils (%) (Auto) , Basophils (%) (Auto) , Differential Total Cells Counted 100, Neutrophils % ( Manual) 95H, Lymphocytes % (Manual) 3L, Monocytes % (Manual) 2, Eosinophils % ( Manual) 0, Basophils % (Manual) 0, Band Neutrophils 0, Platelet Estimate DecreasedL, Platelet Morphology Normal, Hypochromasia 2+, Anisocytosis 1+, Macrocytosis 2+, Prothrombin Time 14.0H, Prothromb Time International Ratio 1.3H , Sodium Level 146H, Potassium Level 3.8, Chloride Level 116H, Carbon Dioxide Level 18L, Anion Gap 12, Blood Urea Nitrogen 35H, Creatinine 1.4H, Estimat Glomerular Filtration Rate 56.1, Glucose Level 178H, Calcium Level 7.8L, Total Bilirubin 10.0H, Direct Bilirubin 8.5H, Aspartate Amino Transf (AST/SGOT) 107H, Alanine Aminotransferase (ALT/SGPT) 60, Alkaline Phosphatase 527H, Total Protein 4.2L, Albumin 1.7L, Globulin 2.5, Albumin/Globulin Ratio 0.7L Height (Feet): 6 Height (Inches): 0.00 Weight (Pounds): 222 General Appearance: no apparent distress, lethargic, confused Neurologic: responsive, depressed affect Trino Kirby M.D. Jun 01, 2017 23:20
[2017-06-02] VITALS (7 sets, daily range): BP systolic 105–128; BP diastolic 58–73
[2017-06-02] MEDS: SandoSTATIN 100mcg/ml amp SUBQ SCH ×3 (06:16→21:32)
[2017-06-02 07:09] LABS: MEAN CORPUSCULAR HGB CONC 31.8 G/DL (32.0-36.0); MEAN CORPUSCULAR VOLUME 116 FL (80-99); MEAN PLATELET VOLUME 8.8 FL (6.5-10.1); PLATELET COUNT 73 K/UL (150-450); RED BLOOD COUNT 2.53 M/UL (4.70-6.10); RED CELL DISTRIBUTION WIDTH 15.9 % (11.6-14.8); WHITE BLOOD COUNT 20.4 K/UL (4.8-10.8)
[2017-06-02 07:53] LABS: ALANINE AMINOTRANSFERASE 76 U/L (12-78); ALBUMIN/GLOBULIN RATIO 0.6 (1.0-2.7); ANION GAP 9 mmol/L (5-15); ASPARTATE AMINO TRANSFERASE 117 U/L (15-37); CALCIUM 8.1 MG/DL (8.5-10.1); CARBON DIOXIDE 21 MMOL/L (21-32); CHLORIDE 116 MMOL/L (98-107); CREATININE 1.3 MG/DL (0.55-1.30); GLOMERULAR FILTRATION RATE > 60 mL/min (>60); POTASSIUM 3.9 MMOL/L (3.5-5.1); SODIUM 146 MMOL/L (136-145); TOTAL PROTEIN 4.1 G/DL (6.4-8.2)
[2017-06-02 07:59] LABS: BILIRUBIN,DIRECT 8.4 MG/DL (0.0-0.3)
[2017-06-02 08:42] LABS: ANISOCYTOSIS 1+; BAND NEUTROPHILS % (MANUAL) 0 % (0-8); BASOPHILS % (MANUAL) 0 % (0-2); EOSINOPHILS % (MANUAL) 0 % (0-3); LYMPHOCYTES % (MANUAL) 1 % (20-45); MACROCYTES 1+; NEUTROPHILS % (MANUAL) 94 % (45-75); PLATELET ESTIMATE DECREASED; PLATELET MORPHOLOGY NORMAL; TOTAL CELLS COUNTED 100
[2017-06-02] MEDS: Midodrine 10mg tab ORAL SCH ×3 (09:33→18:51)
[2017-06-02] MEDS: Tamsulosin 0.4mg cap ORAL SCH ×2 (09:33→18:51)
[2017-06-02] MEDS: Fluconazole 100mg tab ORAL SCH (09:34)
[2017-06-02] MEDS: Thiamine 100mg tab ORAL SCH (09:34)
[2017-06-02] MEDS: Vitamin D 1000 IU Tab ORAL SCH (09:34)
--- NOTE | 2017-06-02 09:42 | Wound Nurse Progress Note ---
Wound RN Progress Note Wound Consult #1 Sacrococcygeal DTI pressure ulcer- noted good progress , skin remains intact. #2 jose rashes on perineal area- noted good progress , no further deterioration present. Recommendation -Local wound care per protocol -Keep clean and dry -Turn and reposition -Low air loss SPR mattress -Offload both heels -Heel protector on both heels -Optimize nutrition -Assess and f/u accordingly for any changes RAVI BRIONES Jun 02, 2017 09:42
[2017-06-02] MEDS: Nystatin Powder 100,000 units/gm 15gm TOPIC SCH ×3 (09:45→18:51)
--- NOTE | 2017-06-02 11:47 | Nephrology Progress Note ---
Assessment/Plan Problem List: (1) Liver cirrhosis, alcoholic (2) Ascites due to alcoholic cirrhosis (3) Renal failure (ARF), acute on chronic Assessment Renal failure on admit , likely due to liver disease- Cr zaira to 2.5 now back down to 1.3 pneumonia, leukocytosis h/o low Na due to anasarca- resolved Jaundice Anemia low alb Plan Plan: K supplement Antibiotics- avoid nephrotoxics- monitor renal parameters optimize pulmonary and renal and hepatic status as possible. per consultants Subjective ROS Limited/Unobtainable: No Objective Objective Last 24 Hour Vital Signs Date Time Temp Pulse Resp B/P (MAP) Pulse Ox O2 Delivery O2 Flow Rate FiO2 06/02/17 08:00 90 18 128/68 95 Room Air 06/02/17 07:40 72 20 Room Air 06/02/17 04:18 99.0 72 20 125/73 96 Room Air 06/02/17 00:00 99.1 73 20 117/58 97 Room Air 06/01/17 20:08 97 Room Air 06/01/17 20:08 79 20 Room Air 06/01/17 20:08 Room Air 06/01/17 20:00 98.6 77 20 111/74 95 Room Air 06/01/17 16:30 96.7 78 18 141/77 95 Room Air 06/01/17 12:15 98.5 73 20 104/65 99 Room Air Laboratory Tests 06/02/17 04:50: White Blood Count 20.4H, Red Blood Count 2.53L, Hemoglobin 9.4L, Hematocrit 29.4L, Mean Corpuscular Volume 116H, Mean Corpuscular Hemoglobin 37.0H, Mean Corpuscular Hemoglobin Concent 31.8L, Red Cell Distribution Width 15.9H, Platelet Count 73L, Mean Platelet Volume 8.8, Neutrophils (%) (Auto) , Lymphocytes (%) (Auto) , Monocytes (%) (Auto) , Eosinophils (%) (Auto) , Basophils (%) (Auto) , Differential Total Cells Counted 100, Neutrophils % ( Manual) 94H, Lymphocytes % (Manual) 1L, Monocytes % (Manual) 5, Eosinophils % ( Manual) 0, Basophils % (Manual) 0, Band Neutrophils 0, Platelet Estimate DecreasedL, Platelet Morphology Normal, Anisocytosis 1+, Macrocytosis 1+, Sodium Level 146H, Potassium Level 3.9, Chloride Level 116H, Carbon Dioxide Level 21, Anion Gap 9, Blood Urea Nitrogen 35H, Creatinine 1.3, Estimat Glomerular Filtration Rate > 60, Glucose Level 121H, Calcium Level 8.1L, Total Bilirubin 9.9H, Direct Bilirubin 8.4H, Aspartate Amino Transf (AST/SGOT) 117H, Alanine Aminotransferase (ALT/SGPT) 76, Alkaline Phosphatase 560H, Total Protein 4.1L, Albumin 1.6L, Globulin 2.5, Albumin/Globulin Ratio 0.6L Height (Feet): 6 Height (Inches): 0.00 Weight (Pounds): 222 General Appearance: no apparent distress Cardiovascular: normal rate Respiratory/Chest: decreased breath sounds Abdomen: soft, distended Extremities: other - 2+ Edema Objective no other changes MIKAELA AYOUB Jun 02, 2017 11:47
[2017-06-02 12:03] LABS: OTHERS PATHOLOGIST COMMENT
--- NOTE | 2017-06-02 12:04 | GI Progress Note ---
Assessment/Plan Problems: (1) Renal failure (ARF), acute on chronic ICD Codes: N17.9 - Acute kidney failure, unspecified; N18.9 - Chronic kidney disease, unspecified SNOMED: 373460261 (2) Ascites due to alcoholic cirrhosis ICD Codes: K70.31 - Alcoholic cirrhosis of liver with ascites SNOMED: 0451644618802402 (3) Jaundice of recent onset ICD Codes: R17 - Unspecified jaundice SNOMED: 15071092 (4) Leukocytosis ICD Codes: D72.829 - Elevated white blood cell count, unspecified SNOMED: 459263007, 693554466 (5) Sepsis ICD Codes: A41.9 - Sepsis, unspecified organism SNOMED: 83167114 (6) Liver cirrhosis, alcoholic ICD Codes: K70.30 - Alcoholic cirrhosis of liver without ascites SNOMED: 803956731, 635200804 Status: stable Status Narrative Discussed with Dr. Daly. Assessment/Plan ultrasound guided paracentesis >> r/o SBP >> negative prednisone decreased to 30mg cont xifaxan cont midodrine and octreotide 2 gm na diet/2L fluid restriction avoid diuretics at this time monitor H&H, prn transfusion if Hgb < 7.0 dc lactulose, monitor ammonia tramadol prn pain electrolyte replacement nystatin abx per ID albumin IV prn fu labs per consultants dc planning Subjective Subjective sleepy Objective Last 24 Hour Vital Signs Date Time Temp Pulse Resp B/P (MAP) Pulse Ox O2 Delivery O2 Flow Rate FiO2 06/02/17 08:00 90 18 128/68 95 Room Air 06/02/17 07:40 72 20 Room Air 06/02/17 04:18 99.0 72 20 125/73 96 Room Air 06/02/17 00:00 99.1 73 20 117/58 97 Room Air 06/01/17 20:08 97 Room Air 06/01/17 20:08 79 20 Room Air 06/01/17 20:08 Room Air 06/01/17 20:00 98.6 77 20 111/74 95 Room Air 06/01/17 16:30 96.7 78 18 141/77 95 Room Air 06/01/17 12:15 98.5 73 20 104/65 99 Room Air Laboratory Tests Test 06/02/17 04:50 White Blood Count 20.4 K/UL (4.8-10.8) H Red Blood Count 2.53 M/UL (4.70-6.10) L Hemoglobin 9.4 G/DL (14.2-18.0) L Hematocrit 29.4 % (42.0-52.0) L Mean Corpuscular Volume 116 FL (80-99) H Mean Corpuscular Hemoglobin 37.0 PG (27.0-31.0) H Mean Corpuscular Hemoglobin Concent 31.8 G/DL (32.0-36.0) L Red Cell Distribution Width 15.9 % (11.6-14.8) H Platelet Count 73 K/UL (150-450) L Mean Platelet Volume 8.8 FL (6.5-10.1) Neutrophils (%) (Auto) % (45.0-75.0) Lymphocytes (%) (Auto) % (20.0-45.0) Monocytes (%) (Auto) % (1.0-10.0) Eosinophils (%) (Auto) % (0.0-3.0) Basophils (%) (Auto) % (0.0-2.0) Differential Total Cells Counted 100 Neutrophils % (Manual) 94 % (45-75) H Lymphocytes % (Manual) 1 % (20-45) L Monocytes % (Manual) 5 % (1-10) Eosinophils % (Manual) 0 % (0-3) Basophils % (Manual) 0 % (0-2) Band Neutrophils 0 % (0-8) Platelet Estimate Decreased L Platelet Morphology Normal Anisocytosis 1+ Macrocytosis 1+ Sodium Level 146 MMOL/L (136-145) H Potassium Level 3.9 MMOL/L (3.5-5.1) Chloride Level 116 MMOL/L (98-107) H Carbon Dioxide Level 21 MMOL/L (21-32) Anion Gap 9 mmol/L (5-15) Blood Urea Nitrogen 35 mg/dL (7-18) H Creatinine 1.3 MG/DL (0.55-1.30) Estimat Glomerular Filtration Rate > 60 mL/min (>60) Glucose Level 121 MG/DL (74-106) H Calcium Level 8.1 MG/DL (8.5-10.1) L Total Bilirubin 9.9 MG/DL (0.2-1.0) H Direct Bilirubin 8.4 MG/DL (0.0-0.3) H Aspartate Amino Transf (AST/SGOT) 117 U/L (15-37) H Alanine Aminotransferase (ALT/SGPT) 76 U/L (12-78) Alkaline Phosphatase 560 U/L (46-116) H Total Protein 4.1 G/DL (6.4-8.2) L Albumin 1.6 G/DL (3.4-5.0) L Globulin 2.5 g/dL Albumin/Globulin Ratio 0.6 (1.0-2.7) L Height (Feet): 6 Height (Inches): 0.00 Weight (Pounds): 222 General Appearance: WD/WN, no apparent distress, alert Cardiovascular: normal rate Respiratory/Chest: no respiratory distress Abdominal Exam: normal bowel sounds, non tender, soft, ascites - leaking from paracentesis site Extremities: non-tender, swelling - BLE Danay Grady N.Colleen Jun 02, 2017 12:04
[2017-06-02 12:05] LABS: COMMENT,BODY FLUID PATHOLOGIST COMMENT
--- NOTE | 2017-06-02 15:01 | Diagnostic Imaging Report ---
Indication: COUGH Technique: One view of the chest Comparison: 05/31/2017 Findings: There is again demonstrated bilateral mostly perihilar interstitial edema and right perihilar infiltrate, which appears similar to the prior exam, allowing for technical differences. There is probably a small right pleural effusion. The right hemidiaphragm is elevated Impression: Bilateral interstitial edema and right perihilar infiltrate, unchanged over 2 days Probable small right pleural effusion
--- NOTE | 2017-06-02 16:53 | Infectious Diseases Prog Note ---
Assessment/Plan Problems: (1) HCAP (healthcare-associated pneumonia) Assessment & Plan: S/P zosyn for 7 days , repeated CXR showed fluids overload , needs diuresis with fluids restriction, will start lasix (2) Sepsis Assessment & Plan: with significant leukocytosis, now increasing due to steroids , blood culture grew coag negative staph from one bottle most likely contaminant , monitor off antibiotics , taper steroids, monitor WBC (3) Ascites due to alcoholic cirrhosis Assessment & Plan: with anasarca, recommend diuresis, and daily weight monitor , S/P paracentesis , fluids culture is negative (4) Liver cirrhosis, alcoholic Assessment & Plan: continue supportive care, GI is following (5) QAMAR (acute kidney injury) Assessment & Plan: suspect hepatorenal, improving , monitor urine output, and avoid nephrotoxic medicine, renal service is following (6) Acute respiratory failure Assessment & Plan: improving , due to the above , off BIPAP, on nasal canula , monitor CXR, pulmonary is following (7) Candiduria Assessment & Plan: recommend to change Molina cath , will start Diflucan for two weeks Subjective Constitutional: Reports: fatigue HEENT: Reports: no symptoms Respiratory: Reports: dry cough Breasts: Reports: no symptoms Cardiovascular: Reports: no symptoms Gastrointestinal/Abdominal: Reports: diarrhea, bloating Genitourinary: Reports: no symptoms Neurologic: Reports: weakness, confusion Psychiatric: Reports: depression Skin: Reports: no symptoms Endocrine: Reports: no symptoms Hematologic: Reports: no symptoms Allergies: Coded Allergies: No Known Allergies (Unverified , 04/29/17) Objective Vital Signs Last 24 Hour Vital Signs Date Time Temp Pulse Resp B/P (MAP) Pulse Ox O2 Delivery O2 Flow Rate FiO2 06/02/17 16:01 97.0 71 19 117/59 95 Room Air 06/02/17 12:00 77 19 124/69 96 Room Air 06/02/17 08:00 90 18 128/68 95 Room Air 06/02/17 07:40 72 20 Room Air 06/02/17 04:18 99.0 72 20 125/73 96 Room Air 06/02/17 00:00 99.1 73 20 117/58 97 Room Air 06/01/17 20:08 97 Room Air 06/01/17 20:08 79 20 Room Air 06/01/17 20:08 Room Air 06/01/17 20:00 98.6 77 20 111/74 95 Room Air Height (Feet): 6 Height (Inches): 0.00 Weight (Pounds): 222 General Appearance: WD/WN, no acute distress, other - confused HEENT: normocephalic, atraumatic, anicteric, mucous membranes moist, PERRL, supple, no JVD Respiratory/Chest: chest wall non-tender, lungs clear, normal breath sounds, no respiratory distress, no accessory muscle use Cardiovascular: normal peripheral pulses, normal rate, regular rhythm, no JVD Abdomen: normal bowel sounds, soft, non tender, no organomegaly, non distended , no mass, no scars Extremities: no cyanosis, no clubbing, other - edema Skin: no rash, no lesions Laboratory Tests Test 06/02/17 04:50 White Blood Count 20.4 K/UL (4.8-10.8) H Red Blood Count 2.53 M/UL (4.70-6.10) L Hemoglobin 9.4 G/DL (14.2-18.0) L Hematocrit 29.4 % (42.0-52.0) L Mean Corpuscular Volume 116 FL (80-99) H Mean Corpuscular Hemoglobin 37.0 PG (27.0-31.0) H Mean Corpuscular Hemoglobin Concent 31.8 G/DL (32.0-36.0) L Red Cell Distribution Width 15.9 % (11.6-14.8) H Platelet Count 73 K/UL (150-450) L Mean Platelet Volume 8.8 FL (6.5-10.1) Neutrophils (%) (Auto) % (45.0-75.0) Lymphocytes (%) (Auto) % (20.0-45.0) Monocytes (%) (Auto) % (1.0-10.0) Eosinophils (%) (Auto) % (0.0-3.0) Basophils (%) (Auto) % (0.0-2.0) Differential Total Cells Counted 100 Neutrophils % (Manual) 94 % (45-75) H Lymphocytes % (Manual) 1 % (20-45) L Monocytes % (Manual) 5 % (1-10) Eosinophils % (Manual) 0 % (0-3) Basophils % (Manual) 0 % (0-2) Band Neutrophils 0 % (0-8) Platelet Estimate Decreased L Platelet Morphology Normal Anisocytosis 1+ Macrocytosis 1+ Sodium Level 146 MMOL/L (136-145) H Potassium Level 3.9 MMOL/L (3.5-5.1) Chloride Level 116 MMOL/L (98-107) H Carbon Dioxide Level 21 MMOL/L (21-32) Anion Gap 9 mmol/L (5-15) Blood Urea Nitrogen 35 mg/dL (7-18) H Creatinine 1.3 MG/DL (0.55-1.30) Estimat Glomerular Filtration Rate > 60 mL/min (>60) Glucose Level 121 MG/DL (74-106) H Calcium Level 8.1 MG/DL (8.5-10.1) L Total Bilirubin 9.9 MG/DL (0.2-1.0) H Direct Bilirubin 8.4 MG/DL (0.0-0.3) H Aspartate Amino Transf (AST/SGOT) 117 U/L (15-37) H Alanine Aminotransferase (ALT/SGPT) 76 U/L (12-78) Alkaline Phosphatase 560 U/L (46-116) H Total Protein 4.1 G/DL (6.4-8.2) L Albumin 1.6 G/DL (3.4-5.0) L Globulin 2.5 g/dL Albumin/Globulin Ratio 0.6 (1.0-2.7) L Current Medications Medications (Trade) Dose Ordered Sig/Leonard Route PRN Reason Start Time Stop Time Status Last Admin Dose Admin Albuterol Sulfate (Proventil MDI) 2 puff BIDPRN PRN INH Shortness of Breath 05/30/17 17:00 06/23/17 16:59 Fluconazole (Diflucan) 200 mg DAILY ORAL 05/31/17 15:00 06/07/17 14:59 06/02/17 09:34 Midodrine (Pro-Amatine) 10 mg THREE TIMES A DAY ORAL 05/30/17 18:00 06/24/17 08:59 06/02/17 13:41 Nystatin (Nystop Powder) 1 applic THREE TIMES A DAY TOPIC 05/30/17 18:00 06/28/17 12:59 06/02/17 13:42 Octreotide Acetate (SandoSTATIN) 100 mcg Q8HR SUBQ 05/30/17 22:00 06/25/17 21:59 06/02/17 15:11 Pantoprazole (Protonix) 40 mg DAILY ORAL 05/31/17 10:45 06/30/17 10:44 06/02/17 09:35 Prednisone (predniSONE) 30 mg DAILY ORAL 06/01/17 09:00 07/01/17 08:59 06/02/17 09:35 Rifaximin (Xifaxan) 550 mg EVERY 12 HOURS ORAL 05/30/17 21:00 06/29/17 09:29 06/02/17 09:33 Tamsulosin HCl (Flomax) 0.4 mg BID ORAL 05/30/17 18:00 06/27/17 21:59 06/02/17 09:33 Thiamine HCl (Vitamin B1) 100 mg DAILY ORAL 05/31/17 09:00 06/24/17 08:59 06/02/17 09:34 Tramadol HCl (Ultram) 50 mg Q6H PRN ORAL For Pain 05/30/17 17:00 06/06/17 16:59 06/01/17 09:39 Vitamin D (Vitamin D) 1,000 intlu DAILY ORAL 05/31/17 09:00 06/24/17 08:59 06/02/17 09:34 Janae Lopez M.D. Jun 02, 2017 16:53
--- NOTE | 2017-06-02 19:27 | General Progress Note ---
Assessment/Plan Status: stable Assessment/Plan hepato encephalopathy dc remeron dcativan Subjective Neurologic/Psychiatric: Reports: anxiety, depressed Allergies: Coded Allergies: No Known Allergies (Unverified , 04/29/17) Subjective the pt is still groggy and confused on no psych meds. the pt is pw waxing and waning of consciousness. [facility] Objective Last 24 Hour Vital Signs Date Time Temp Pulse Resp B/P (MAP) Pulse Ox O2 Delivery O2 Flow Rate FiO2 06/02/17 16:01 97.0 71 19 117/59 95 Room Air 06/02/17 12:00 77 19 124/69 96 Room Air 06/02/17 08:00 90 18 128/68 95 Room Air 06/02/17 07:40 72 20 Room Air 06/02/17 04:18 99.0 72 20 125/73 96 Room Air 06/02/17 00:00 99.1 73 20 117/58 97 Room Air 06/01/17 20:08 97 Room Air 06/01/17 20:08 79 20 Room Air 06/01/17 20:08 Room Air 06/01/17 20:00 98.6 77 20 111/74 95 Room Air Intake and Output 06/02/17 06/03/17 19:00 07:00 Intake Total 240 ml Balance 240 ml Intake Oral 240 ml Laboratory Tests 06/02/17 04:50: White Blood Count 20.4H, Red Blood Count 2.53L, Hemoglobin 9.4L, Hematocrit 29.4L, Mean Corpuscular Volume 116H, Mean Corpuscular Hemoglobin 37.0H, Mean Corpuscular Hemoglobin Concent 31.8L, Red Cell Distribution Width 15.9H, Platelet Count 73L, Mean Platelet Volume 8.8, Neutrophils (%) (Auto) , Lymphocytes (%) (Auto) , Monocytes (%) (Auto) , Eosinophils (%) (Auto) , Basophils (%) (Auto) , Differential Total Cells Counted 100, Neutrophils % ( Manual) 94H, Lymphocytes % (Manual) 1L, Monocytes % (Manual) 5, Eosinophils % ( Manual) 0, Basophils % (Manual) 0, Band Neutrophils 0, Platelet Estimate DecreasedL, Platelet Morphology Normal, Anisocytosis 1+, Macrocytosis 1+, Sodium Level 146H, Potassium Level 3.9, Chloride Level 116H, Carbon Dioxide Level 21, Anion Gap 9, Blood Urea Nitrogen 35H, Creatinine 1.3, Estimat Glomerular Filtration Rate > 60, Glucose Level 121H, Calcium Level 8.1L, Total Bilirubin 9.9H, Direct Bilirubin 8.4H, Aspartate Amino Transf (AST/SGOT) 117H, Alanine Aminotransferase (ALT/SGPT) 76, Alkaline Phosphatase 560H, Total Protein 4.1L, Albumin 1.6L, Globulin 2.5, Albumin/Globulin Ratio 0.6L Height (Feet): 6 Height (Inches): 0.00 Weight (Pounds): 222 General Appearance: no apparent distress, lethargic Neurologic: responsive, disoriented, depressed affect Trino Kirby M.D. Jun 02, 2017 19:27
--- NOTE | 2017-06-02 21:59 | General Progress Note ---
Assessment/Plan Assessment/Plan IMPRESSION/PLAN 1. Leukocytosis 2/2 steroid as well as infection. ID following. Now off abx. 2. Thrombocytopenia, multifactorial. The patient has end stage liver disease. Platelet goal is above 20K --> Give plts if count drops to 10K or if count is 20K and pt febrile 3. Anemia of chronic disease. Watch counts, transfuse if hgb below 7. --> continue to monitor closely, hgb is downtrending 4. Anemia of kidney disease. 5. History of alcohol abuse. 6. Alcoholic liver cirrhosis. 7. Bilirubinemia. Subjective Allergies: Coded Allergies: No Known Allergies (Unverified , 04/29/17) All Systems: reviewed and negative except above Subjective sleepy Objective Last 24 Hour Vital Signs Date Time Temp Pulse Resp B/P (MAP) Pulse Ox O2 Delivery O2 Flow Rate FiO2 06/02/17 19:29 97.5 80 20 105/60 94 Room Air 06/02/17 16:01 97.0 71 19 117/59 95 Room Air 06/02/17 12:00 77 19 124/69 96 Room Air 06/02/17 08:00 90 18 128/68 95 Room Air 06/02/17 07:40 72 20 Room Air 06/02/17 04:18 99.0 72 20 125/73 96 Room Air 06/02/17 00:00 99.1 73 20 117/58 97 Room Air Intake and Output 06/02/17 06/03/17 19:00 07:00 Intake Total 240 ml Balance 240 ml Intake Oral 240 ml Laboratory Tests 06/02/17 04:50: White Blood Count 20.4H, Red Blood Count 2.53L, Hemoglobin 9.4L, Hematocrit 29.4L, Mean Corpuscular Volume 116H, Mean Corpuscular Hemoglobin 37.0H, Mean Corpuscular Hemoglobin Concent 31.8L, Red Cell Distribution Width 15.9H, Platelet Count 73L, Mean Platelet Volume 8.8, Neutrophils (%) (Auto) , Lymphocytes (%) (Auto) , Monocytes (%) (Auto) , Eosinophils (%) (Auto) , Basophils (%) (Auto) , Differential Total Cells Counted 100, Neutrophils % ( Manual) 94H, Lymphocytes % (Manual) 1L, Monocytes % (Manual) 5, Eosinophils % ( Manual) 0, Basophils % (Manual) 0, Band Neutrophils 0, Platelet Estimate DecreasedL, Platelet Morphology Normal, Anisocytosis 1+, Macrocytosis 1+, Sodium Level 146H, Potassium Level 3.9, Chloride Level 116H, Carbon Dioxide Level 21, Anion Gap 9, Blood Urea Nitrogen 35H, Creatinine 1.3, Estimat Glomerular Filtration Rate > 60, Glucose Level 121H, Calcium Level 8.1L, Total Bilirubin 9.9H, Direct Bilirubin 8.4H, Aspartate Amino Transf (AST/SGOT) 117H, Alanine Aminotransferase (ALT/SGPT) 76, Alkaline Phosphatase 560H, Total Protein 4.1L, Albumin 1.6L, Globulin 2.5, Albumin/Globulin Ratio 0.6L Height (Feet): 6 Height (Inches): 0.00 Weight (Pounds): 222 General Appearance: lethargic EENT: normal ENT inspection Neck: normal alignment Cardiovascular: normal peripheral pulses Abdomen: normal bowel sounds Extremities: non-tender 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
[2017-06-03 04:00] VITALS: BP 107/54
[2017-06-03] MEDS: SandoSTATIN 100mcg/ml amp SUBQ SCH ×3 (05:32→21:05)
[2017-06-03 06:46] LABS: MEAN CORPUSCULAR HEMOGLOBIN 37.1 PG (27.0-31.0); MEAN CORPUSCULAR HGB CONC 32.5 G/DL (32.0-36.0); MEAN CORPUSCULAR VOLUME 114 FL (80-99); MEAN PLATELET VOLUME 8.1 FL (6.5-10.1); PLATELET COUNT 67 K/UL (150-450); RED BLOOD COUNT 2.53 M/UL (4.70-6.10); RED CELL DISTRIBUTION WIDTH 15.8 % (11.6-14.8); WHITE BLOOD COUNT 17.3 K/UL (4.8-10.8)
[2017-06-03 07:04] LABS: ALANINE AMINOTRANSFERASE 78 U/L (12-78); ALBUMIN/GLOBULIN RATIO 0.6 (1.0-2.7); ANION GAP 8 mmol/L (5-15); ASPARTATE AMINO TRANSFERASE 118 U/L (15-37); CALCIUM 8.2 MG/DL (8.5-10.1); CARBON DIOXIDE 22 MMOL/L (21-32); CHLORIDE 115 MMOL/L (98-107); CREATININE 1.3 MG/DL (0.55-1.30); GLOMERULAR FILTRATION RATE > 60 mL/min (>60); POTASSIUM 4.2 MMOL/L (3.5-5.1); SODIUM 145 MMOL/L (136-145); TOTAL PROTEIN 4.1 G/DL (6.4-8.2)
[2017-06-03 07:05] LABS: AMMONIA 24 umol/L (11.2-31.7)
[2017-06-03 07:06] LABS: BILIRUBIN,DIRECT 7.9 MG/DL (0.0-0.3)
[2017-06-03 08:00] VITALS: BP 112/65
[2017-06-03 08:14] LABS: ANISOCYTOSIS 1+; BAND NEUTROPHILS % (MANUAL) 0 % (0-8); BASOPHILS % (MANUAL) 0 % (0-2); EOSINOPHILS % (MANUAL) 0 % (0-3); HYPOCHROMASIA 2+; LYMPHOCYTES % (MANUAL) 2 % (20-45); MACROCYTES 2+; NEUTROPHILS % (MANUAL) 95 % (45-75); PLATELET ESTIMATE DECREASED; PLATELET MORPHOLOGY NORMAL; TOTAL CELLS COUNTED 100
[2017-06-03] MEDS: Fluconazole 100mg tab ORAL SCH (09:47)
[2017-06-03] MEDS: Midodrine 10mg tab ORAL SCH ×3 (09:47→17:25)
[2017-06-03] MEDS: Tamsulosin 0.4mg cap ORAL SCH ×2 (09:47→17:25)
[2017-06-03] MEDS: Thiamine 100mg tab ORAL SCH (09:47)
[2017-06-03] MEDS: Vitamin D 1000 IU Tab ORAL SCH (09:48)
[2017-06-03] MEDS: Nystatin Powder 100,000 units/gm 15gm TOPIC SCH ×3 (09:48→17:25)
[2017-06-03 12:00] VITALS: BP 117/67
--- NOTE | 2017-06-03 13:20 | Nephrology Progress Note ---
Assessment/Plan Problem List: (1) Liver cirrhosis, alcoholic (2) Ascites due to alcoholic cirrhosis (3) Renal failure (ARF), acute on chronic Assessment Renal failure on admit , likely due to liver disease- Cr zaira to 2.5 now back down to 1.3 normalized pneumonia, leukocytosis h/o low Na due to anasarca- resolved Jaundice improving Anemia low alb Plan Plan: K supplement as needed Antibiotics- avoid nephrotoxics- monitor renal parameters optimize pulmonary and renal and hepatic status as possible. per consultants Subjective ROS Limited/Unobtainable: No Constitutional: Reports: malaise Objective Objective Last 24 Hour Vital Signs Date Time Temp Pulse Resp B/P (MAP) Pulse Ox O2 Delivery O2 Flow Rate FiO2 06/03/17 12:00 98.7 83 20 117/67 95 Room Air 06/03/17 08:00 97.7 90 20 112/65 95 Room Air 06/03/17 07:13 83 20 Room Air 06/03/17 04:00 98.6 69 21 107/54 94 Room Air 06/02/17 23:32 97.5 75 20 117/64 95 Room Air 06/02/17 19:29 97.5 80 20 105/60 94 Room Air 06/02/17 19:00 78 20 Room Air 06/02/17 16:01 97.0 71 19 117/59 95 Room Air Laboratory Tests 06/03/17 05:45: White Blood Count 17.3H, Red Blood Count 2.53L, Hemoglobin 9.4L, Hematocrit 28.9L, Mean Corpuscular Volume 114H, Mean Corpuscular Hemoglobin 37.1H, Mean Corpuscular Hemoglobin Concent 32.5, Red Cell Distribution Width 15.8H, Platelet Count 67L, Mean Platelet Volume 8.1, Neutrophils (%) (Auto) , Lymphocytes (%) (Auto) , Monocytes (%) (Auto) , Eosinophils (%) (Auto) , Basophils (%) (Auto) , Differential Total Cells Counted 100, Neutrophils % ( Manual) 95H, Lymphocytes % (Manual) 2L, Monocytes % (Manual) 3, Eosinophils % ( Manual) 0, Basophils % (Manual) 0, Band Neutrophils 0, Platelet Estimate DecreasedL, Platelet Morphology Normal, Hypochromasia 2+, Anisocytosis 1+, Macrocytosis 2+, Sodium Level 145, Potassium Level 4.2, Chloride Level 115H, Carbon Dioxide Level 22, Anion Gap 8, Blood Urea Nitrogen 34H, Creatinine 1.3, Estimat Glomerular Filtration Rate > 60, Glucose Level 117H, Calcium Level 8.2L , Total Bilirubin 8.9H, Direct Bilirubin 7.9H, Aspartate Amino Transf (AST/SGOT ) 118H, Alanine Aminotransferase (ALT/SGPT) 78, Alkaline Phosphatase 596H, Ammonia 24, Total Protein 4.1L, Albumin 1.5L, Globulin 2.6, Albumin/Globulin Ratio 0.6L Height (Feet): 6 Height (Inches): 0.00 Weight (Pounds): 222 General Appearance: no apparent distress Respiratory/Chest: decreased breath sounds Abdomen: distended Objective no other changes MIKAELA AYOUB Jun 03, 2017 13:20
[2017-06-03 16:00] VITALS: BP 119/65
[2017-06-03] MEDS ORDERED: Flu Vaccine Quadrivalent 0.5ml IM ONE (16:00)
--- NOTE | 2017-06-03 16:53 | GI Progress Note ---
Assessment/Plan Problems: (1) Renal failure (ARF), acute on chronic ICD Codes: N17.9 - Acute kidney failure, unspecified; N18.9 - Chronic kidney disease, unspecified SNOMED: 162147627 (2) Ascites due to alcoholic cirrhosis ICD Codes: K70.31 - Alcoholic cirrhosis of liver with ascites SNOMED: 0301823250437178 (3) Jaundice of recent onset ICD Codes: R17 - Unspecified jaundice SNOMED: 02756373 (4) Leukocytosis ICD Codes: D72.829 - Elevated white blood cell count, unspecified SNOMED: 161660392, 654594682 (5) Sepsis ICD Codes: A41.9 - Sepsis, unspecified organism SNOMED: 35027373 (6) Liver cirrhosis, alcoholic ICD Codes: K70.30 - Alcoholic cirrhosis of liver without ascites SNOMED: 108514657, 926537594 Status: doing well, stable, progressing Status Narrative Discussed with Dr. Daly. Assessment/Plan ultrasound guided paracentesis >> r/o SBP >> negative pending dc to [facility] prednisone taper to 30mg x 1 week cont xifaxan cont midodrine and octreotide 2 gm na diet/2L fluid restriction lasix 20mg PO, change to aldactone if if patient has hypokalemia monitor H&H, prn transfusion if Hgb < 7.0 dc lactulose, monitor ammonia >> WNL tramadol prn pain electrolyte replacement nystatin to groin area abx per ID albumin IV prn fu labs per consultants fu weekly outpatient in clinic Subjective Subjective denies any pain BLE edema has greatly improved pending discharge Objective Last 24 Hour Vital Signs Date Time Temp Pulse Resp B/P (MAP) Pulse Ox O2 Delivery O2 Flow Rate FiO2 06/03/17 16:00 98.0 79 19 119/65 96 Room Air 06/03/17 12:00 98.7 83 20 117/67 95 Room Air 06/03/17 08:00 97.7 90 20 112/65 95 Room Air 06/03/17 07:13 83 20 Room Air 06/03/17 04:00 98.6 69 21 107/54 94 Room Air 06/02/17 23:32 97.5 75 20 117/64 95 Room Air 06/02/17 19:29 97.5 80 20 105/60 94 Room Air 06/02/17 19:00 78 20 Room Air Laboratory Tests Test 06/03/17 05:45 White Blood Count 17.3 K/UL (4.8-10.8) H Red Blood Count 2.53 M/UL (4.70-6.10) L Hemoglobin 9.4 G/DL (14.2-18.0) L Hematocrit 28.9 % (42.0-52.0) L Mean Corpuscular Volume 114 FL (80-99) H Mean Corpuscular Hemoglobin 37.1 PG (27.0-31.0) H Mean Corpuscular Hemoglobin Concent 32.5 G/DL (32.0-36.0) Red Cell Distribution Width 15.8 % (11.6-14.8) H Platelet Count 67 K/UL (150-450) L Mean Platelet Volume 8.1 FL (6.5-10.1) Neutrophils (%) (Auto) % (45.0-75.0) Lymphocytes (%) (Auto) % (20.0-45.0) Monocytes (%) (Auto) % (1.0-10.0) Eosinophils (%) (Auto) % (0.0-3.0) Basophils (%) (Auto) % (0.0-2.0) Differential Total Cells Counted 100 Neutrophils % (Manual) 95 % (45-75) H Lymphocytes % (Manual) 2 % (20-45) L Monocytes % (Manual) 3 % (1-10) Eosinophils % (Manual) 0 % (0-3) Basophils % (Manual) 0 % (0-2) Band Neutrophils 0 % (0-8) Platelet Estimate Decreased L Platelet Morphology Normal Hypochromasia 2+ Anisocytosis 1+ Macrocytosis 2+ Sodium Level 145 MMOL/L (136-145) Potassium Level 4.2 MMOL/L (3.5-5.1) Chloride Level 115 MMOL/L (98-107) H Carbon Dioxide Level 22 MMOL/L (21-32) Anion Gap 8 mmol/L (5-15) Blood Urea Nitrogen 34 mg/dL (7-18) H Creatinine 1.3 MG/DL (0.55-1.30) Estimat Glomerular Filtration Rate > 60 mL/min (>60) Glucose Level 117 MG/DL (74-106) H Calcium Level 8.2 MG/DL (8.5-10.1) L Total Bilirubin 8.9 MG/DL (0.2-1.0) H Direct Bilirubin 7.9 MG/DL (0.0-0.3) H Aspartate Amino Transf (AST/SGOT) 118 U/L (15-37) H Alanine Aminotransferase (ALT/SGPT) 78 U/L (12-78) Alkaline Phosphatase 596 U/L (46-116) H Ammonia 24 umol/L (11.2-31.7) Total Protein 4.1 G/DL (6.4-8.2) L Albumin 1.5 G/DL (3.4-5.0) L Globulin 2.6 g/dL Albumin/Globulin Ratio 0.6 (1.0-2.7) L Height (Feet): 6 Height (Inches): 0.00 Weight (Pounds): 222 General Appearance: WD/WN, no apparent distress, alert, confused - at times, other - jaundice Cardiovascular: normal rate Respiratory/Chest: normal breath sounds, no respiratory distress Abdominal Exam: normal bowel sounds, non tender, soft, ascites Genitourinary/Rectal: other - groin erythema Extremities: non-tender Danay Grady N.P. Jun 03, 2017 16:53
--- NOTE | 2017-06-03 17:30 | Infectious Diseases Prog Note ---
Assessment/Plan Problems: (1) HCAP (healthcare-associated pneumonia) Assessment & Plan: S/P zosyn for 7 days , repeated CXR showed fluids overload , needs diuresis with fluids restriction, continue lasix, monitor electrolytes (2) Sepsis Assessment & Plan: with significant leukocytosis, due to steroids , blood culture grew coag negative staph from one bottle most likely contaminant , monitor off antibiotics , taper steroids, monitor WBC (3) Ascites due to alcoholic cirrhosis Assessment & Plan: with anasarca, recommend diuresis, and daily weight monitor , S/P paracentesis , fluids culture is negative (4) Liver cirrhosis, alcoholic Assessment & Plan: continue supportive care, GI is following (5) QAMAR (acute kidney injury) Assessment & Plan: suspect hepatorenal, improving , monitor urine output, and avoid nephrotoxic medicine, renal service is following (6) Acute respiratory failure Assessment & Plan: improving , due to the above , off BIPAP, on nasal canula , monitor CXR, pulmonary is following (7) Candiduria Assessment & Plan: Molina cath was removed , continue Diflucan for two weeks Subjective Constitutional: Reports: fatigue HEENT: Reports: no symptoms Respiratory: Reports: dry cough Breasts: Reports: no symptoms Cardiovascular: Reports: no symptoms Gastrointestinal/Abdominal: Reports: no symptoms Genitourinary: Reports: no symptoms Neurologic: Reports: weakness, confusion Psychiatric: Reports: no symptoms Skin: Reports: no symptoms Endocrine: Reports: no symptoms Hematologic: Reports: no symptoms Musculoskeletal: Reports: no symptoms Allergies: Coded Allergies: No Known Allergies (Unverified , 04/29/17) Objective Vital Signs Last 24 Hour Vital Signs Date Time Temp Pulse Resp B/P (MAP) Pulse Ox O2 Delivery O2 Flow Rate FiO2 06/03/17 16:00 98.0 79 19 119/65 96 Room Air 06/03/17 12:00 98.7 83 20 117/67 95 Room Air 06/03/17 08:00 97.7 90 20 112/65 95 Room Air 06/03/17 07:13 83 20 Room Air 06/03/17 04:00 98.6 69 21 107/54 94 Room Air 06/02/17 23:32 97.5 75 20 117/64 95 Room Air 06/02/17 19:29 97.5 80 20 105/60 94 Room Air 06/02/17 19:00 78 20 Room Air Height (Feet): 6 Height (Inches): 0.00 Weight (Pounds): 222 General Appearance: WD/WN, no acute distress HEENT: normocephalic, atraumatic, anicteric, mucous membranes moist, supple, no JVD Respiratory/Chest: chest wall non-tender, lungs clear, normal breath sounds, no respiratory distress, no accessory muscle use Cardiovascular: normal peripheral pulses, normal rate, regular rhythm, no gallop/murmur, no JVD Abdomen: normal bowel sounds, soft, non tender, no organomegaly, non distended , no mass, no scars Extremities: no cyanosis, no clubbing, other - edema Skin: no rash, no lesions, no ulcers Neurologic/Psychiatric: alert, responsive Lymphatic: no neck adenopathy Laboratory Tests Test 06/03/17 05:45 White Blood Count 17.3 K/UL (4.8-10.8) H Red Blood Count 2.53 M/UL (4.70-6.10) L Hemoglobin 9.4 G/DL (14.2-18.0) L Hematocrit 28.9 % (42.0-52.0) L Mean Corpuscular Volume 114 FL (80-99) H Mean Corpuscular Hemoglobin 37.1 PG (27.0-31.0) H Mean Corpuscular Hemoglobin Concent 32.5 G/DL (32.0-36.0) Red Cell Distribution Width 15.8 % (11.6-14.8) H Platelet Count 67 K/UL (150-450) L Mean Platelet Volume 8.1 FL (6.5-10.1) Neutrophils (%) (Auto) % (45.0-75.0) Lymphocytes (%) (Auto) % (20.0-45.0) Monocytes (%) (Auto) % (1.0-10.0) Eosinophils (%) (Auto) % (0.0-3.0) Basophils (%) (Auto) % (0.0-2.0) Differential Total Cells Counted 100 Neutrophils % (Manual) 95 % (45-75) H Lymphocytes % (Manual) 2 % (20-45) L Monocytes % (Manual) 3 % (1-10) Eosinophils % (Manual) 0 % (0-3) Basophils % (Manual) 0 % (0-2) Band Neutrophils 0 % (0-8) Platelet Estimate Decreased L Platelet Morphology Normal Hypochromasia 2+ Anisocytosis 1+ Macrocytosis 2+ Sodium Level 145 MMOL/L (136-145) Potassium Level 4.2 MMOL/L (3.5-5.1) Chloride Level 115 MMOL/L (98-107) H Carbon Dioxide Level 22 MMOL/L (21-32) Anion Gap 8 mmol/L (5-15) Blood Urea Nitrogen 34 mg/dL (7-18) H Creatinine 1.3 MG/DL (0.55-1.30) Estimat Glomerular Filtration Rate > 60 mL/min (>60) Glucose Level 117 MG/DL (74-106) H Calcium Level 8.2 MG/DL (8.5-10.1) L Total Bilirubin 8.9 MG/DL (0.2-1.0) H Direct Bilirubin 7.9 MG/DL (0.0-0.3) H Aspartate Amino Transf (AST/SGOT) 118 U/L (15-37) H Alanine Aminotransferase (ALT/SGPT) 78 U/L (12-78) Alkaline Phosphatase 596 U/L (46-116) H Ammonia 24 umol/L (11.2-31.7) Total Protein 4.1 G/DL (6.4-8.2) L Albumin 1.5 G/DL (3.4-5.0) L Globulin 2.6 g/dL Albumin/Globulin Ratio 0.6 (1.0-2.7) L Current Medications Medications (Trade) Dose Ordered Sig/Leonard Route PRN Reason Start Time Stop Time Status Last Admin Dose Admin Albuterol Sulfate (Proventil MDI) 2 puff BIDPRN PRN INH Shortness of Breath 05/30/17 17:00 06/23/17 16:59 Fluconazole (Diflucan) 200 mg DAILY ORAL 05/31/17 15:00 06/07/17 14:59 06/03/17 09:47 Furosemide (Lasix) 20 mg DAILY ORAL 06/04/17 09:00 07/02/17 20:59 Midodrine (Pro-Amatine) 10 mg THREE TIMES A DAY ORAL 05/30/17 18:00 06/24/17 08:59 06/03/17 13:42 Nystatin (Nystop Powder) 1 applic THREE TIMES A DAY TOPIC 05/30/17 18:00 06/28/17 12:59 06/03/17 13:42 Octreotide Acetate (SandoSTATIN) 100 mcg Q8HR SUBQ 05/30/17 22:00 06/25/17 21:59 06/03/17 14:45 Pantoprazole (Protonix) 40 mg DAILY ORAL 05/31/17 10:45 06/30/17 10:44 06/03/17 09:47 Prednisone (predniSONE) 30 mg DAILY ORAL 06/01/17 09:00 07/01/17 08:59 06/03/17 09:47 Rifaximin (Xifaxan) 550 mg EVERY 12 HOURS ORAL 05/30/17 21:00 06/29/17 09:29 06/03/17 09:48 Spironolactone (Aldactone) 100 mg DAILY ORAL 06/04/17 09:00 07/04/17 08:59 Tamsulosin HCl (Flomax) 0.4 mg BID ORAL 05/30/17 18:00 06/27/17 21:59 06/03/17 09:47 Thiamine HCl (Vitamin B1) 100 mg DAILY ORAL 05/31/17 09:00 06/24/17 08:59 06/03/17 09:47 Tramadol HCl (Ultram) 50 mg Q6H PRN ORAL For Pain 05/30/17 17:00 06/06/17 16:59 06/01/17 09:39 Vitamin D (Vitamin D) 1,000 intlu DAILY ORAL 05/31/17 09:00 06/24/17 08:59 06/03/17 09:48 Janae Lopez M.D. Jun 03, 2017 17:30
[2017-06-03 20:00] VITALS: BP 108/65
--- NOTE | 2017-06-03 21:43 | General Progress Note ---
Assessment/Plan Status: stable, progressing Assessment/Plan hepato encephalopathy dc remeron dcativan Subjective Neurologic/Psychiatric: Reports: anxiety, depressed, emotional problems Allergies: Coded Allergies: No Known Allergies (Unverified , 04/29/17) Subjective the pt is still groggy and confused on no psych meds. the pt is pw waxing and waning of consciousness. [facility] Last 24 Hour Vital Signs Date Time Temp Pulse Resp B/P (MAP) Pulse Ox O2 Delivery O2 Flow Rate FiO2 06/03/17 20:00 98.2 84 21 108/65 94 Room Air 06/03/17 16:00 98.0 79 19 119/65 96 Room Air 06/03/17 12:00 98.7 83 20 117/67 95 Room Air 06/03/17 08:00 97.7 90 20 112/65 95 Room Air 06/03/17 07:13 83 20 Room Air 06/03/17 04:00 98.6 69 21 107/54 94 Room Air 06/02/17 23:32 97.5 75 20 117/64 95 Room Air Intake and Output 06/03/17 06/04/17 19:00 07:00 Intake Total 240 ml Balance 240 ml Intake Oral 240 ml Laboratory Tests 06/03/17 05:45: White Blood Count 17.3H, Red Blood Count 2.53L, Hemoglobin 9.4L, Hematocrit 28.9L, Mean Corpuscular Volume 114H, Mean Corpuscular Hemoglobin 37.1H, Mean Corpuscular Hemoglobin Concent 32.5, Red Cell Distribution Width 15.8H, Platelet Count 67L, Mean Platelet Volume 8.1, Neutrophils (%) (Auto) , Lymphocytes (%) (Auto) , Monocytes (%) (Auto) , Eosinophils (%) (Auto) , Basophils (%) (Auto) , Differential Total Cells Counted 100, Neutrophils % ( Manual) 95H, Lymphocytes % (Manual) 2L, Monocytes % (Manual) 3, Eosinophils % ( Manual) 0, Basophils % (Manual) 0, Band Neutrophils 0, Platelet Estimate DecreasedL, Platelet Morphology Normal, Hypochromasia 2+, Anisocytosis 1+, Macrocytosis 2+, Sodium Level 145, Potassium Level 4.2, Chloride Level 115H, Carbon Dioxide Level 22, Anion Gap 8, Blood Urea Nitrogen 34H, Creatinine 1.3, Estimat Glomerular Filtration Rate > 60, Glucose Level 117H, Calcium Level 8.2L , Total Bilirubin 8.9H, Direct Bilirubin 7.9H, Aspartate Amino Transf (AST/SGOT ) 118H, Alanine Aminotransferase (ALT/SGPT) 78, Alkaline Phosphatase 596H, Ammonia 24, Total Protein 4.1L, Albumin 1.5L, Globulin 2.6, Albumin/Globulin Ratio 0.6L Height (Feet): 6 Height (Inches): 0.00 Weight (Pounds): 222 General Appearance: no apparent distress, alert Neurologic: alert, oriented x 3, responsive, depressed affect Trino Kirby M.D. Jun 03, 2017 21:43
--- NOTE | 2017-06-03 21:55 | General Progress Note ---
Assessment/Plan Assessment/Plan IMPRESSION/PLAN 1. Leukocytosis 2/2 steroid as well as infection. ID following. Now off abx. 2. Thrombocytopenia, multifactorial. The patient has end stage liver disease. Platelet goal is above 20K --> Give plts if count drops to 10K or if count is 20K and pt febrile 3. Anemia of chronic disease. Watch counts, transfuse if hgb below 7. --> continue to monitor closely, hgb is downtrending 4. Anemia of kidney disease. 5. History of alcohol abuse. 6. Alcoholic liver cirrhosis. 7. Bilirubinemia, downtrending Subjective Constitutional: Reports: weakness Allergies: Coded Allergies: No Known Allergies (Unverified , 04/29/17) Subjective afebrile, no bleeding Objective Last 24 Hour Vital Signs Date Time Temp Pulse Resp B/P (MAP) Pulse Ox O2 Delivery O2 Flow Rate FiO2 06/03/17 20:00 98.2 84 21 108/65 94 Room Air 06/03/17 16:00 98.0 79 19 119/65 96 Room Air 06/03/17 12:00 98.7 83 20 117/67 95 Room Air 06/03/17 08:00 97.7 90 20 112/65 95 Room Air 06/03/17 07:13 83 20 Room Air 06/03/17 04:00 98.6 69 21 107/54 94 Room Air 06/02/17 23:32 97.5 75 20 117/64 95 Room Air Intake and Output 06/03/17 06/04/17 19:00 07:00 Intake Total 240 ml Balance 240 ml Intake Oral 240 ml Laboratory Tests 06/03/17 05:45: White Blood Count 17.3H, Red Blood Count 2.53L, Hemoglobin 9.4L, Hematocrit 28.9L, Mean Corpuscular Volume 114H, Mean Corpuscular Hemoglobin 37.1H, Mean Corpuscular Hemoglobin Concent 32.5, Red Cell Distribution Width 15.8H, Platelet Count 67L, Mean Platelet Volume 8.1, Neutrophils (%) (Auto) , Lymphocytes (%) (Auto) , Monocytes (%) (Auto) , Eosinophils (%) (Auto) , Basophils (%) (Auto) , Differential Total Cells Counted 100, Neutrophils % ( Manual) 95H, Lymphocytes % (Manual) 2L, Monocytes % (Manual) 3, Eosinophils % ( Manual) 0, Basophils % (Manual) 0, Band Neutrophils 0, Platelet Estimate DecreasedL, Platelet Morphology Normal, Hypochromasia 2+, Anisocytosis 1+, Macrocytosis 2+, Sodium Level 145, Potassium Level 4.2, Chloride Level 115H, Carbon Dioxide Level 22, Anion Gap 8, Blood Urea Nitrogen 34H, Creatinine 1.3, Estimat Glomerular Filtration Rate > 60, Glucose Level 117H, Calcium Level 8.2L , Total Bilirubin 8.9H, Direct Bilirubin 7.9H, Aspartate Amino Transf (AST/SGOT ) 118H, Alanine Aminotransferase (ALT/SGPT) 78, Alkaline Phosphatase 596H, Ammonia 24, Total Protein 4.1L, Albumin 1.5L, Globulin 2.6, Albumin/Globulin Ratio 0.6L Height (Feet): 6 Height (Inches): 0.00 Weight (Pounds): 222 General Appearance: no apparent distress EENT: normal ENT inspection Neck: normal alignment Cardiovascular: normal peripheral pulses Respiratory/Chest: chest wall non-tender, no respiratory distress Edema: mild edema Neurologic: abnormal gait Joshua Hurley Jun 03, 2017 21:55
[2017-06-04] VITALS: BP 126/71
[2017-06-04 04:00] VITALS: BP 124/69
[2017-06-04] MEDS: SandoSTATIN 100mcg/ml amp SUBQ SCH ×2 (05:13→14:33)
[2017-06-04 06:26] LABS: MEAN CORPUSCULAR HEMOGLOBIN 35.7 PG (27.0-31.0); MEAN CORPUSCULAR HGB CONC 31.7 G/DL (32.0-36.0); MEAN CORPUSCULAR VOLUME 113 FL (80-99); MEAN PLATELET VOLUME 7.7 FL (6.5-10.1); PLATELET COUNT 65 K/UL (150-450); RED BLOOD COUNT 2.71 M/UL (4.70-6.10); RED CELL DISTRIBUTION WIDTH 15.8 % (11.6-14.8); WHITE BLOOD COUNT 16.3 K/UL (4.8-10.8)
[2017-06-04 07:10] LABS: ALANINE AMINOTRANSFERASE 86 U/L (12-78); ALBUMIN/GLOBULIN RATIO 0.6 (1.0-2.7); ANION GAP 6 mmol/L (5-15); ASPARTATE AMINO TRANSFERASE 146 U/L (15-37); CALCIUM 8.3 MG/DL (8.5-10.1); CARBON DIOXIDE 24 MMOL/L (21-32); CHLORIDE 114 MMOL/L (98-107); CREATININE 1.3 MG/DL (0.55-1.30); GLOMERULAR FILTRATION RATE > 60 mL/min (>60); POTASSIUM 4.4 MMOL/L (3.5-5.1); SODIUM 144 MMOL/L (136-145); TOTAL PROTEIN 4.2 G/DL (6.4-8.2)
[2017-06-04 07:11] LABS: BILIRUBIN,DIRECT 7.5 MG/DL (0.0-0.3)
[2017-06-04 08:00] VITALS: BP 116/74
[2017-06-04] MEDS ORDERED: Spironolactone 50mg tab ORAL SCH (09:00)
[2017-06-04] MEDS: Tamsulosin 0.4mg cap ORAL SCH ×2 (09:21→18:20)
[2017-06-04] MEDS: Thiamine 100mg tab ORAL SCH (09:22)
[2017-06-04] MEDS: Vitamin D 1000 IU Tab ORAL SCH (09:22)
[2017-06-04] MEDS: Fluconazole 100mg tab ORAL SCH (09:22)
[2017-06-04] MEDS: Midodrine 10mg tab ORAL SCH ×3 (09:22→18:20)
[2017-06-04] MEDS: Nystatin Powder 100,000 units/gm 15gm TOPIC SCH ×3 (09:30→18:21)
--- NOTE | 2017-06-04 10:31 | GI Progress Note ---
Assessment/Plan Problems: (1) Renal failure (ARF), acute on chronic ICD Codes: N17.9 - Acute kidney failure, unspecified; N18.9 - Chronic kidney disease, unspecified SNOMED: 612297238 (2) Ascites due to alcoholic cirrhosis ICD Codes: K70.31 - Alcoholic cirrhosis of liver with ascites SNOMED: 4227986902837575 (3) Jaundice of recent onset ICD Codes: R17 - Unspecified jaundice SNOMED: 24177904 (4) Leukocytosis ICD Codes: D72.829 - Elevated white blood cell count, unspecified SNOMED: 797724299, 776642847 (5) Sepsis ICD Codes: A41.9 - Sepsis, unspecified organism SNOMED: 61471029 (6) Liver cirrhosis, alcoholic ICD Codes: K70.30 - Alcoholic cirrhosis of liver without ascites SNOMED: 721589502, 487596057 Status: stable, unchanged Status Narrative Discussed with Dr. Daly. Assessment/Plan ultrasound guided paracentesis >> r/o SBP >> negative pending dc to [facility] prednisone taper to 30mg x 1 week, then decrease dosage by 5mg weekly until off. cont Xifaxan cont midodrine and octreotide (ok to dc octreotide when transferred) 2 gm na diet/2L fluid restriction lasix 20mg PO >> will change to aldactone if if patient has hypokalemia monitor H&H, prn transfusion if Hgb < 7.0 dc lactulose, monitor ammonia >> WNL tramadol prn pain electrolyte replacement nystatin to groin area abx per ID albumin IV prn fu labs per consultants fu weekly outpatient in clinic Subjective Subjective denies any pain BLE edema has greatly improved pending discharge Objective Last 24 Hour Vital Signs Date Time Temp Pulse Resp B/P (MAP) Pulse Ox O2 Delivery O2 Flow Rate FiO2 06/04/17 08:00 96.2 98 18 116/74 95 Room Air 06/04/17 07:55 91 20 Room Air 06/04/17 04:00 97.0 83 20 124/69 95 Room Air 06/04/17 00:00 98.4 73 21 126/71 95 Room Air 06/03/17 20:00 98.2 84 21 108/65 94 Room Air 06/03/17 19:05 79 20 Room Air 06/03/17 16:00 98.0 79 19 119/65 96 Room Air 06/03/17 12:00 98.7 83 20 117/67 95 Room Air Laboratory Tests Test 06/04/17 06:05 White Blood Count 16.3 K/UL (4.8-10.8) H Red Blood Count 2.71 M/UL (4.70-6.10) L Hemoglobin 9.7 G/DL (14.2-18.0) L Hematocrit 30.6 % (42.0-52.0) L Mean Corpuscular Volume 113 FL (80-99) H Mean Corpuscular Hemoglobin 35.7 PG (27.0-31.0) H Mean Corpuscular Hemoglobin Concent 31.7 G/DL (32.0-36.0) L Red Cell Distribution Width 15.8 % (11.6-14.8) H Platelet Count 65 K/UL (150-450) L Mean Platelet Volume 7.7 FL (6.5-10.1) Neutrophils (%) (Auto) % (45.0-75.0) Lymphocytes (%) (Auto) % (20.0-45.0) Monocytes (%) (Auto) % (1.0-10.0) Eosinophils (%) (Auto) % (0.0-3.0) Basophils (%) (Auto) % (0.0-2.0) Neutrophils % (Manual) Pending Lymphocytes % (Manual) Pending Platelet Estimate Pending Platelet Morphology Pending Sodium Level 144 MMOL/L (136-145) Potassium Level 4.4 MMOL/L (3.5-5.1) Chloride Level 114 MMOL/L (98-107) H Carbon Dioxide Level 24 MMOL/L (21-32) Anion Gap 6 mmol/L (5-15) Blood Urea Nitrogen 35 mg/dL (7-18) H Creatinine 1.3 MG/DL (0.55-1.30) Estimat Glomerular Filtration Rate > 60 mL/min (>60) Glucose Level 131 MG/DL (74-106) H Calcium Level 8.3 MG/DL (8.5-10.1) L Total Bilirubin 8.6 MG/DL (0.2-1.0) H Direct Bilirubin 7.5 MG/DL (0.0-0.3) H Aspartate Amino Transf (AST/SGOT) 146 U/L (15-37) H Alanine Aminotransferase (ALT/SGPT) 86 U/L (12-78) H Alkaline Phosphatase 656 U/L (46-116) H Total Protein 4.2 G/DL (6.4-8.2) L Albumin 1.5 G/DL (3.4-5.0) L Globulin 2.7 g/dL Albumin/Globulin Ratio 0.6 (1.0-2.7) L Height (Feet): 6 Height (Inches): 0.00 Weight (Pounds): 222 General Appearance: WD/WN, no apparent distress, alert, confused - at times Cardiovascular: normal rate Respiratory/Chest: normal breath sounds, no respiratory distress Abdominal Exam: normal bowel sounds, non tender, soft, ascites, other - s/p paracentesis site leakage Extremities: non-tender, other - BLE +1 edema Danay Grady N.P. Jun 04, 2017 10:31
[2017-06-04 10:43] LABS: ANISOCYTOSIS 1+; BAND NEUTROPHILS % (MANUAL) 1 % (0-8); BASOPHILS % (MANUAL) 0 % (0-2); EOSINOPHILS % (MANUAL) 0 % (0-3); LYMPHOCYTES % (MANUAL) 2 % (20-45); NEUTROPHILS % (MANUAL) 94 % (45-75); PLATELET ESTIMATE DECREASED; PLATELET MORPHOLOGY NORMAL; TOTAL CELLS COUNTED 100
[2017-06-04 10:44] LABS: HYPOCHROMASIA 1+
[2017-06-04 10:45] LABS: MACROCYTES 2+
--- NOTE | 2017-06-04 12:11 | Nephrology Progress Note ---
Assessment/Plan Problem List: (1) Liver cirrhosis, alcoholic (2) Ascites due to alcoholic cirrhosis (3) Renal failure (ARF), acute on chronic Assessment Renal failure on admit , likely due to liver disease- Cr zaira to 2.5 now back down to 1.3 normalized pneumonia, leukocytosis h/o low Na due to anasarca- resolved Jaundice improving Anemia low alb Plan Plan: K supplement as needed Antibiotics- avoid nephrotoxics- monitor renal parameters optimize pulmonary and renal and hepatic status as possible. per consultants Subjective ROS Limited/Unobtainable: No Constitutional: Reports: malaise Objective Objective Last 24 Hour Vital Signs Date Time Temp Pulse Resp B/P (MAP) Pulse Ox O2 Delivery O2 Flow Rate FiO2 06/04/17 08:00 96.2 98 18 116/74 95 Room Air 06/04/17 07:55 91 20 Room Air 06/04/17 04:00 97.0 83 20 124/69 95 Room Air 06/04/17 00:00 98.4 73 21 126/71 95 Room Air 06/03/17 20:00 98.2 84 21 108/65 94 Room Air 06/03/17 19:05 79 20 Room Air 06/03/17 16:00 98.0 79 19 119/65 96 Room Air Laboratory Tests 06/04/17 06:05: White Blood Count 16.3H, Red Blood Count 2.71L, Hemoglobin 9.7L, Hematocrit 30.6L, Mean Corpuscular Volume 113H, Mean Corpuscular Hemoglobin 35.7H, Mean Corpuscular Hemoglobin Concent 31.7L, Red Cell Distribution Width 15.8H, Platelet Count 65L, Mean Platelet Volume 7.7, Neutrophils (%) (Auto) , Lymphocytes (%) (Auto) , Monocytes (%) (Auto) , Eosinophils (%) (Auto) , Basophils (%) (Auto) , Differential Total Cells Counted 100, Neutrophils % ( Manual) 94H, Lymphocytes % (Manual) 2L, Monocytes % (Manual) 3, Eosinophils % ( Manual) 0, Basophils % (Manual) 0, Band Neutrophils 1, Platelet Estimate DecreasedL, Platelet Morphology Normal, Hypochromasia 1+, Anisocytosis 1+, Macrocytosis 2+, Sodium Level 144, Potassium Level 4.4, Chloride Level 114H, Carbon Dioxide Level 24, Anion Gap 6, Blood Urea Nitrogen 35H, Creatinine 1.3, Estimat Glomerular Filtration Rate > 60, Glucose Level 131H, Calcium Level 8.3L , Total Bilirubin 8.6H, Direct Bilirubin 7.5H, Aspartate Amino Transf (AST/SGOT ) 146H, Alanine Aminotransferase (ALT/SGPT) 86H, Alkaline Phosphatase 656H, Total Protein 4.2L, Albumin 1.5L, Globulin 2.7, Albumin/Globulin Ratio 0.6L 06/04/17 11:40: Ammonia [Pending] Height (Feet): 6 Height (Inches): 0.00 Weight (Pounds): 222 General Appearance: no apparent distress, other - less icteric Respiratory/Chest: decreased breath sounds Abdomen: soft, distended Objective no other changes MIKAELA AYOUB Jun 04, 2017 12:11
[2017-06-04 12:34] VITALS: BP 116/60
--- NOTE | 2017-06-04 13:50 | Infectious Diseases Prog Note ---
Assessment/Plan Problems: (1) HCAP (healthcare-associated pneumonia) Assessment & Plan: S/P zosyn for 7 days , repeated CXR showed fluids overload , needs more diuresis with fluids restriction, continue lasix, monitor electrolytes , follow up with GI (2) Sepsis Assessment & Plan: with significant leukocytosis,most likely due to steroids , blood culture grew coag negative staph from one bottle most likely contaminant , monitor off antibiotics , taper steroids, monitor WBC (3) Ascites due to alcoholic cirrhosis Assessment & Plan: with anasarca, continue diuresis, and daily weight monitor , S/P paracentesis , fluids culture is negative (4) Liver cirrhosis, alcoholic Assessment & Plan: continue supportive care, GI is following (5) QAMAR (acute kidney injury) Assessment & Plan: suspect hepatorenal, improving , monitor urine output, and avoid nephrotoxic medicine, renal service is following (6) Acute respiratory failure Assessment & Plan: improving , due to the above , off BIPAP, on nasal canula , monitor CXR, pulmonary is following (7) Candiduria Assessment & Plan: Molina cath was removed , continue Diflucan for two weeks Subjective Constitutional: Reports: no symptoms HEENT: Reports: no symptoms Respiratory: Reports: no symptoms Breasts: Reports: no symptoms Cardiovascular: Reports: no symptoms Gastrointestinal/Abdominal: Reports: no symptoms Genitourinary: Reports: no symptoms Neurologic: Reports: no symptoms Psychiatric: Reports: no symptoms Skin: Reports: no symptoms Endocrine: Reports: no symptoms Hematologic: Reports: no symptoms Allergies: Coded Allergies: No Known Allergies (Unverified , 04/29/17) Objective Vital Signs Last 24 Hour Vital Signs Date Time Temp Pulse Resp B/P (MAP) Pulse Ox O2 Delivery O2 Flow Rate FiO2 06/04/17 12:34 95.7 78 18 116/60 95 Room Air 06/04/17 08:00 96.2 98 18 116/74 95 Room Air 06/04/17 07:55 91 20 Room Air 06/04/17 04:00 97.0 83 20 124/69 95 Room Air 06/04/17 00:00 98.4 73 21 126/71 95 Room Air 06/03/17 20:00 98.2 84 21 108/65 94 Room Air 06/03/17 19:05 79 20 Room Air 06/03/17 16:00 98.0 79 19 119/65 96 Room Air Height (Feet): 6 Height (Inches): 0.00 Weight (Pounds): 222 General Appearance: WD/WN, no acute distress HEENT: normocephalic, atraumatic, anicteric, mucous membranes moist Respiratory/Chest: chest wall non-tender, lungs clear, normal breath sounds, no respiratory distress, no accessory muscle use Cardiovascular: normal peripheral pulses, normal rate, regular rhythm, no gallop/murmur, no JVD Abdomen: normal bowel sounds, soft, non tender, no organomegaly, non distended , no mass, no scars Extremities: no cyanosis, no clubbing Skin: no rash, no lesions, no ulcers Neurologic/Psychiatric: alert, responsive Laboratory Tests Test 06/04/17 06:05 06/04/17 11:40 White Blood Count 16.3 K/UL (4.8-10.8) H Red Blood Count 2.71 M/UL (4.70-6.10) L Hemoglobin 9.7 G/DL (14.2-18.0) L Hematocrit 30.6 % (42.0-52.0) L Mean Corpuscular Volume 113 FL (80-99) H Mean Corpuscular Hemoglobin 35.7 PG (27.0-31.0) H Mean Corpuscular Hemoglobin Concent 31.7 G/DL (32.0-36.0) L Red Cell Distribution Width 15.8 % (11.6-14.8) H Platelet Count 65 K/UL (150-450) L Mean Platelet Volume 7.7 FL (6.5-10.1) Neutrophils (%) (Auto) % (45.0-75.0) Lymphocytes (%) (Auto) % (20.0-45.0) Monocytes (%) (Auto) % (1.0-10.0) Eosinophils (%) (Auto) % (0.0-3.0) Basophils (%) (Auto) % (0.0-2.0) Differential Total Cells Counted 100 Neutrophils % (Manual) 94 % (45-75) H Lymphocytes % (Manual) 2 % (20-45) L Monocytes % (Manual) 3 % (1-10) Eosinophils % (Manual) 0 % (0-3) Basophils % (Manual) 0 % (0-2) Band Neutrophils 1 % (0-8) Platelet Estimate Decreased L Platelet Morphology Normal Hypochromasia 1+ Anisocytosis 1+ Macrocytosis 2+ Sodium Level 144 MMOL/L (136-145) Potassium Level 4.4 MMOL/L (3.5-5.1) Chloride Level 114 MMOL/L (98-107) H Carbon Dioxide Level 24 MMOL/L (21-32) Anion Gap 6 mmol/L (5-15) Blood Urea Nitrogen 35 mg/dL (7-18) H Creatinine 1.3 MG/DL (0.55-1.30) Estimat Glomerular Filtration Rate > 60 mL/min (>60) Glucose Level 131 MG/DL (74-106) H Calcium Level 8.3 MG/DL (8.5-10.1) L Total Bilirubin 8.6 MG/DL (0.2-1.0) H Direct Bilirubin 7.5 MG/DL (0.0-0.3) H Aspartate Amino Transf (AST/SGOT) 146 U/L (15-37) H Alanine Aminotransferase (ALT/SGPT) 86 U/L (12-78) H Alkaline Phosphatase 656 U/L (46-116) H Total Protein 4.2 G/DL (6.4-8.2) L Albumin 1.5 G/DL (3.4-5.0) L Globulin 2.7 g/dL Albumin/Globulin Ratio 0.6 (1.0-2.7) L Ammonia 48 umol/L (11.2-31.7) H Current Medications Medications (Trade) Dose Ordered Sig/Leonard Route PRN Reason Start Time Stop Time Status Last Admin Dose Admin Albuterol Sulfate (Proventil MDI) 2 puff BIDPRN PRN INH Shortness of Breath 05/30/17 17:00 06/23/17 16:59 Fluconazole (Diflucan) 200 mg DAILY ORAL 05/31/17 15:00 06/07/17 14:59 06/04/17 09:22 Furosemide (Lasix) 20 mg DAILY ORAL 06/04/17 09:00 07/02/17 20:59 06/04/17 09:22 Midodrine (Pro-Amatine) 10 mg THREE TIMES A DAY ORAL 05/30/17 18:00 06/24/17 08:59 06/04/17 09:22 Nystatin (Nystop Powder) 1 applic THREE TIMES A DAY TOPIC 05/30/17 18:00 06/28/17 12:59 06/04/17 09:30 Octreotide Acetate (SandoSTATIN) 100 mcg Q8HR SUBQ 05/30/17 22:00 06/25/17 21:59 06/04/17 05:13 Pantoprazole (Protonix) 40 mg DAILY ORAL 05/31/17 10:45 06/30/17 10:44 06/04/17 09:22 Prednisone (predniSONE) 30 mg DAILY ORAL 06/01/17 09:00 07/01/17 08:59 06/04/17 09:21 Rifaximin (Xifaxan) 550 mg EVERY 12 HOURS ORAL 05/30/17 21:00 06/29/17 09:29 06/04/17 09:22 Spironolactone (Aldactone) 100 mg DAILY ORAL 06/04/17 09:00 07/04/17 08:59 06/04/17 09:22 Tamsulosin HCl (Flomax) 0.4 mg BID ORAL 05/30/17 18:00 06/27/17 21:59 06/04/17 09:21 Thiamine HCl (Vitamin B1) 100 mg DAILY ORAL 05/31/17 09:00 06/24/17 08:59 06/04/17 09:22 Tramadol HCl (Ultram) 50 mg Q6H PRN ORAL For Pain 05/30/17 17:00 06/06/17 16:59 06/01/17 09:39 Vitamin D (Vitamin D) 1,000 intlu DAILY ORAL 05/31/17 09:00 06/24/17 08:59 06/04/17 09:22 Janae Lopez M.D. Jun 04, 2017 13:50
[2017-06-04 16:00] VITALS: BP 132/69
[2017-06-04] MEDS ORDERED: FUROSEMIDE40 MG/5 ML ORAL (16:42)
[2017-06-04] MEDS ORDERED: FLUCONAZOLE100 MG ORAL ×2 (16:42→16:50)
[2017-06-04] MEDS ORDERED: NYSTATIN1 EAC1 PO (16:44)
[2017-06-04] MEDS ORDERED: PANTOPRAZOLE SO40 MG ORAL (16:44)
[2017-06-04] MEDS ORDERED: SPIRONOLACTONE50 MG ORAL (16:45)
[2017-06-04] MEDS ORDERED: VITAMIN D1000 UNI1 ORAL (16:46)
[2017-06-04] MEDS ORDERED: TAMSULOSIN HCL0.4 MG ORAL (16:46)
[2017-06-04] MEDS ORDERED: PREDNISONE20 MG ORAL (16:47)
[2017-06-04] MEDS ORDERED: XIFAXAN550 MG ORAL (16:47)
[2017-06-04] MEDS ORDERED: TRAMADOL HCL50 MG ORAL (16:47)
[2017-06-04] MEDS ORDERED: FUROSEMIDE20 M1 ORAL (16:53)
[2017-06-04] MEDS ORDERED: Tubing IV Secondary IV ONE (18:43)
--- NOTE | 2017-06-04 22:01 | General Progress Note ---
Assessment/Plan Assessment/Plan IMPRESSION/PLAN 1. Leukocytosis 2/2 steroid as well as infection. ID following. Now off abx. 2. Thrombocytopenia, multifactorial. The patient has end stage liver disease. Platelet goal is above 20K --> Give plts if count drops to 10K or if count is 20K and pt febrile 3. Anemia of chronic disease. Watch counts, transfuse if hgb below 7. --> continue to monitor closely, hgb is downtrending 4. Anemia of kidney disease. 5. History of alcohol abuse. 6. Alcoholic liver cirrhosis. 7. Bilirubinemia, downtrending Subjective ROS Limited/Unobtainable: Yes Allergies: Coded Allergies: No Known Allergies (Unverified , 04/29/17) Subjective afebrile, no bleeding Objective Last 24 Hour Vital Signs Date Time Temp Pulse Resp B/P (MAP) Pulse Ox O2 Delivery O2 Flow Rate FiO2 06/04/17 16:00 97.0 98 19 132/69 95 Room Air 06/04/17 12:34 95.7 78 18 116/60 95 Room Air 06/04/17 08:00 96.2 98 18 116/74 95 Room Air 06/04/17 07:55 91 20 Room Air 06/04/17 04:00 97.0 83 20 124/69 95 Room Air 06/04/17 00:00 98.4 73 21 126/71 95 Room Air Intake and Output 06/04/17 06/05/17 19:00 07:00 Intake Total 850 ml Output Total 700 ml Balance 150 ml Intake Oral 850 ml Output Urine Total 700 ml # Voids 4 # Bowel Movements 1 Laboratory Tests 06/04/17 06:05: White Blood Count 16.3H, Red Blood Count 2.71L, Hemoglobin 9.7L, Hematocrit 30.6L, Mean Corpuscular Volume 113H, Mean Corpuscular Hemoglobin 35.7H, Mean Corpuscular Hemoglobin Concent 31.7L, Red Cell Distribution Width 15.8H, Platelet Count 65L, Mean Platelet Volume 7.7, Neutrophils (%) (Auto) , Lymphocytes (%) (Auto) , Monocytes (%) (Auto) , Eosinophils (%) (Auto) , Basophils (%) (Auto) , Differential Total Cells Counted 100, Neutrophils % ( Manual) 94H, Lymphocytes % (Manual) 2L, Monocytes % (Manual) 3, Eosinophils % ( Manual) 0, Basophils % (Manual) 0, Band Neutrophils 1, Platelet Estimate DecreasedL, Platelet Morphology Normal, Hypochromasia 1+, Anisocytosis 1+, Macrocytosis 2+, Sodium Level 144, Potassium Level 4.4, Chloride Level 114H, Carbon Dioxide Level 24, Anion Gap 6, Blood Urea Nitrogen 35H, Creatinine 1.3, Estimat Glomerular Filtration Rate > 60, Glucose Level 131H, Calcium Level 8.3L , Total Bilirubin 8.6H, Direct Bilirubin 7.5H, Aspartate Amino Transf (AST/SGOT ) 146H, Alanine Aminotransferase (ALT/SGPT) 86H, Alkaline Phosphatase 656H, Total Protein 4.2L, Albumin 1.5L, Globulin 2.7, Albumin/Globulin Ratio 0.6L 06/04/17 11:40: Ammonia 48H Height (Feet): 6 Height (Inches): 0.00 Weight (Pounds): 222 General Appearance: no apparent distress EENT: normal ENT inspection Neck: normal inspection Abdomen: distended Extremities: non-tender Joshua Hurley Jun 04, 2017 22:01
--- NOTE | 2017-06-04 23:51 | General Progress Note ---
Assessment/Plan Status: stable Assessment/Plan hepato encephalopathy dc remeron dcativan Subjective Neurologic/Psychiatric: Reports: anxiety, depressed, emotional problems Allergies: Coded Allergies: No Known Allergies (Unverified , 04/29/17) [facility] Last 24 Hour Vital Signs Date Time Temp Pulse Resp B/P (MAP) Pulse Ox O2 Delivery O2 Flow Rate FiO2 06/04/17 16:00 97.0 98 19 132/69 95 Room Air 06/04/17 12:34 95.7 78 18 116/60 95 Room Air 06/04/17 08:00 96.2 98 18 116/74 95 Room Air 06/04/17 07:55 91 20 Room Air 06/04/17 04:00 97.0 83 20 124/69 95 Room Air 06/04/17 00:00 98.4 73 21 126/71 95 Room Air Intake and Output 06/04/17 06/05/17 19:00 07:00 Intake Total 850 ml Output Total 700 ml Balance 150 ml Intake Oral 850 ml Output Urine Total 700 ml # Voids 4 # Bowel Movements 1 Laboratory Tests 06/04/17 06:05: White Blood Count 16.3H, Red Blood Count 2.71L, Hemoglobin 9.7L, Hematocrit 30.6L, Mean Corpuscular Volume 113H, Mean Corpuscular Hemoglobin 35.7H, Mean Corpuscular Hemoglobin Concent 31.7L, Red Cell Distribution Width 15.8H, Platelet Count 65L, Mean Platelet Volume 7.7, Neutrophils (%) (Auto) , Lymphocytes (%) (Auto) , Monocytes (%) (Auto) , Eosinophils (%) (Auto) , Basophils (%) (Auto) , Differential Total Cells Counted 100, Neutrophils % ( Manual) 94H, Lymphocytes % (Manual) 2L, Monocytes % (Manual) 3, Eosinophils % ( Manual) 0, Basophils % (Manual) 0, Band Neutrophils 1, Platelet Estimate DecreasedL, Platelet Morphology Normal, Hypochromasia 1+, Anisocytosis 1+, Macrocytosis 2+, Sodium Level 144, Potassium Level 4.4, Chloride Level 114H, Carbon Dioxide Level 24, Anion Gap 6, Blood Urea Nitrogen 35H, Creatinine 1.3, Estimat Glomerular Filtration Rate > 60, Glucose Level 131H, Calcium Level 8.3L , Total Bilirubin 8.6H, Direct Bilirubin 7.5H, Aspartate Amino Transf (AST/SGOT ) 146H, Alanine Aminotransferase (ALT/SGPT) 86H, Alkaline Phosphatase 656H, Total Protein 4.2L, Albumin 1.5L, Globulin 2.7, Albumin/Globulin Ratio 0.6L 06/04/17 11:40: Ammonia 48H Height (Feet): 6 Height (Inches): 0.00 Weight (Pounds): 222 General Appearance: WD/WN, no apparent distress, alert Neurologic: alert, oriented x 3, responsive, depressed affect Trino Kirby M.D. Jun 04, 2017 23:51
--- NOTE | 2017-06-06 13:53 | Discharge Summary ---
Discharge Summary Hospital Course Date of Admission May 24, 2017 at 18:27 Date of Discharge Jun 04, 2017 at 18:44 Admitting Diagnosis hypoxia, effusion HPI Fady D Brunner is a 42 year old male who was admitted on May 24, 2017 at 18:27 for Hypoxia,Effusion Hospital Course [id number] Discharge Discharge Disposition Patient was discharged to SNF/Subacute Facility(03) Discharge Diagnoses: Carla Katz NP Jun 06, 2017 13:53
--- NOTE | 2017-06-07 05:46 | Discharge Summary 2 SIG ---
DATE OF ADMISSION: 05/24/2017 DATE OF DISCHARGE: 06/04/2017 CONSULTANTS: 1. Alexandro Wasserman M.D. 2. Solo Mcdowell M.D. 3. Joshua Hurley M.D. 4. Trino Kirby M.D. 5. Janae Lopez M.D. BRIEF HOSPITAL COURSE: The patient is a 42-year-old male, who has history of liver failure with cirrhosis and ascites, history of pulmonary infiltrates with effusion, urinary tract infection, and encephalopathy was brought in by EMS for increased difficulty breathing. On arrival to ED, chest x-ray showed bilateral infiltrates. He had severe leukocytosis, WBC 26. Hemoglobin was 10 and hematocrit 32. Creatinine was 1.6. Sodium level was 5.3. LFTs were elevated. Total bilirubin was 16. He was initially placed on BiPAP, however, at ED, the patient took BiPAP off and he was placed on 100% nonrebreather mask. He was admitted to [facility] for evaluation of hypoxia and respiratory failure. He was given oxygen support. He had liver failure due to alcohol abuse and had been jaundiced. His MELD score was 27 and prognosis is very poor, although would benefit from liver transplantation. However, recent alcohol use will not make him candidate for transplant. He was treated with diuretics and was given lactulose and Xifaxan. He underwent ultrasound-guided paracentesis on 05/26/2017. Culture and Gram stain of body fluid did not isolate any growth. He was started on Zosyn and vancomycin by Infectious Disease specialist. Blood culture grew coagulase-negative Staph. He had acute kidney injury, suspect hepatorenal. Vancomycin was discontinued. He was eventually tapered off O2. However, chest x-ray was showing worsening edema. IV fluid was reduced. He was given Kayexalate for hyperkalemia. Psychiatric evaluation was done. Librium was discontinued and was given Ativan and Risperdal. He was started on steroids. Repeat chest x-ray with fluid overload and was restarted on Lasix. Blood culture showed coagulase-negative Staph from one bottle most likely contaminant. He received seven days of IV Zosyn. He was observed off antibiotic treatment. Urine culture showed growth of Hellen. Molina catheter was discontinued and was started on Diflucan 200 mg daily. Venous duplex of lower extremities did not isolate any growth. He presented with leukocytosis secondary to steroids as well as infection. Thrombocytopenia was multifactorial, which could be secondary to end-stage liver disease. Anemia workup done showed anemia of chronic disease and anemia of kidney disease. He was placed on midodrine and octreotide and was placed on 2 g sodium diet and two liters fluid restriction. Ammonia level normalized. Lactulose was discontinued. The patient was advised to taper off prednisone to 30 mg for one week and decreased by 5 mg weekly until off. He was eventually discharged to [facility]. FINAL DIAGNOSES: 1. Sepsis. 2. Alcoholic liver cirrhosis. 3. Acute on chronic renal failure. 4. Ascites due to alcoholic cirrhosis. 5. Thrombocytopenia, multifactorial. 6. Anemia of chronic disease. 7. Anemia of kidney disease. 8. Alcohol abuse. 9. Healthcare-associated pneumonia. 10. Acute respiratory failure requiring BiPAP. 11. Candiduria. 12. Hypoalbuminemia. 13. Sacrococcygeal deep tissue injury pressure ulcer and Hellen rash on perineal area, present on admission. 14. Volume overload. 15. Altered mental status/acute metabolic encephalopathy, improved. DISPOSITION: The patient was discharged to [facility]. DISCHARGE MEDICATIONS: Refer to medication list. rAnoldo Daly M.D. I have been assigned to dictate discharge summary on this account and I was not involved in the patient's management. Carla Katz N.P. DR: Tavia JOB#: [id number] CC: MADHU
== END 2017-06-04 18:44 | DRG 871 ==
LOC: EDBD 11:18 → EDUNIT# 11:18 → EMR 11:53 → EDBEDREQ 17:59 → 2W 18:27 → 4E 05-30 16:10
PROC: 0W9G3ZZ Drainage of Peritoneal Cavity, Percutaneous Approach (ICD-10-PCS; principal; 2017-05-26)
DX: A41.9 Sepsis, unspecified organism (principal); J18.9 Pneumonia, unspecified organism; J96.01 Acute respiratory failure with hypoxia; K76.7 Hepatorenal syndrome; G93.41 Metabolic encephalopathy; N17.9 Acute kidney failure, unspecified; L89.159 Pressure ulcer of sacral region, unspecified stage; D68.9 Coagulation defect, unspecified; B37.49 Other urogenital candidiasis; E88.09 Other disorders of plasma-protein metabolism, not elsewhere classified; D69.6 Thrombocytopenia, unspecified; E87.5 Hyperkalemia; K70.31 Alcoholic cirrhosis of liver with ascites; F10.20 Alcohol dependence, uncomplicated; K70.40 Alcoholic hepatic failure without coma; K21.9 Gastro-esophageal reflux disease without esophagitis; N18.9 Chronic kidney disease, unspecified; D63.1 Anemia in chronic kidney disease; R62.7 Adult failure to thrive; B37.2 Candidiasis of skin and nail
CPT/HCPCS: 36415; 36600; 71010; 74230; 76942; 80053; 80061; 80329; 81001; 82105; 82140; 82248; 82270; 82550; 82607; 82728; 82746; 82803; 82977; 83036; 83540; 83550; 83605; 83690; 83735; 83880; 84100; 84153; 84154; 84300; 84443; 84550; 85007; 85025; 85610; 85730; 86140; 86850; 86900; 86901; 87040; 87070; 87081; 87086; 87181; 87205; 89051; 90630; 93005; 93970; 94664; 94760; 99285

== ENCOUNTER 2017-08-18 13:36 | Outpatient (CLI) | payer BC ==
[~2017-08-18 13:36] MED LIST changes: +FLUCONAZOLE100 MG ORAL; +FUROSEMIDE20 M1 ORAL; +FUROSEMIDE40 MG/5 ML ORAL; +LACTULOSE20 GM/301 ORAL; +NYSTATIN1 EAC1 PO; +OCTREOTIDE100 MCG/2 IJ; +PANTOPRAZOLE SO40 MG ORAL; +PREDNISONE20 MG ORAL; +PRO-AMATINE10 MG ORAL; +SPIRONOLACTONE50 MG ORAL; +TAMSULOSIN HCL0.4 MG ORAL; +TRAMADOL HCL50 MG ORAL; +XIFAXAN550 MG ORAL
[2017-08-18 16:15] LABS: BASOPHILS % (AUTO) 0.8 % (0.0-2.0); EOSINOPHILS % (AUTO) 0.5 % (0.0-3.0); HEMATOCRIT 36.5 % (42.0-52.0); LYMPHOCYTES % (AUTO) 14.4 % (20.0-45.0); MEAN CORPUSCULAR VOLUME 99 FL (80-99); MONOCYTES % (AUTO) 7.7 % (1.0-10.0); NEUTROPHILS % (AUTO) 76.6 % (45.0-75.0); PLATELET COUNT 277 K/UL (150-450); RED CELL DISTRIBUTION WIDTH 13.4 % (11.6-14.8); WHITE BLOOD COUNT 13.7 K/UL (4.8-10.8)
[2017-08-18 16:20] LABS: INR 1.2 (0.9-1.1)
[2017-08-18 16:39] LABS: ALANINE AMINOTRANSFERASE 29 U/L (12-78); ALBUMIN 2.3 G/DL (3.4-5.0); ALBUMIN/GLOBULIN RATIO 0.5 (1.0-2.7); ALKALINE PHOSPHATASE 339 U/L (46-116); ANION GAP 11 mmol/L (5-15); ASPARTATE AMINO TRANSFERASE 60 U/L (15-37); BILIRUBIN,DIRECT 1.7 MG/DL (0.0-0.3); BILIRUBIN,TOTAL 2.7 MG/DL (0.2-1.0); BLOOD UREA NITROGEN 17 mg/dL (7-18); CALCIUM 9.4 MG/DL (8.5-10.1); CARBON DIOXIDE 20 MMOL/L (21-32); CHLORIDE 106 MMOL/L (98-107); CREATININE 1.3 MG/DL (0.55-1.30); POTASSIUM 5.4 MMOL/L (3.5-5.1); SODIUM 137 MMOL/L (136-145)
== END 2017-08-18 14:09 | disposition home or self-care (01) ==
LOC: PAN 13:36
DX: K74.60 Unspecified cirrhosis of liver (principal)
CPT/HCPCS: 36415; 80053; 82248; 85025; 85610; 85730

== ENCOUNTER 2017-09-01 13:34 | Outpatient (CLI) | payer BC ==
[2017-09-01 16:54] LABS: BASOPHILS % (AUTO) 0.7 % (0.0-2.0); EOSINOPHILS % (AUTO) 0.6 % (0.0-3.0); HEMATOCRIT 34.7 % (42.0-52.0); HEMOGLOBIN 11.6 G/DL (14.2-18.0); LYMPHOCYTES % (AUTO) 15.5 % (20.0-45.0); MEAN CORPUSCULAR VOLUME 96 FL (80-99); MONOCYTES % (AUTO) 8.7 % (1.0-10.0); NEUTROPHILS % (AUTO) 74.5 % (45.0-75.0); PLATELET COUNT 242 K/UL (150-450); RED BLOOD COUNT 3.61 M/UL (4.70-6.10); RED CELL DISTRIBUTION WIDTH 13.5 % (11.6-14.8); WHITE BLOOD COUNT 9.6 K/UL (4.8-10.8)
[2017-09-01 17:03] LABS: ALANINE AMINOTRANSFERASE 20 U/L (12-78); ALBUMIN 2.3 G/DL (3.4-5.0); ALBUMIN/GLOBULIN RATIO 0.6 (1.0-2.7); ALKALINE PHOSPHATASE 267 U/L (46-116); ANION GAP 10 mmol/L (5-15); ASPARTATE AMINO TRANSFERASE 54 U/L (15-37); BLOOD UREA NITROGEN 15 mg/dL (7-18); CALCIUM 8.9 MG/DL (8.5-10.1); CARBON DIOXIDE 24 MMOL/L (21-32); CHLORIDE 102 MMOL/L (98-107); CREATININE 1.4 MG/DL (0.55-1.30); POTASSIUM 4.2 MMOL/L (3.5-5.1); SODIUM 136 MMOL/L (136-145)
[2017-09-01 17:07] LABS: BILIRUBIN,DIRECT 1.4 MG/DL (0.0-0.3)
== END 2017-09-01 14:06 | disposition home or self-care (01) ==
LOC: PAN 13:34
DX: K74.60 Unspecified cirrhosis of liver (principal)
CPT/HCPCS: 36415; 80053; 82248; 85025; G0463; 99212

== ENCOUNTER 2017-09-15 14:15 | Outpatient (CLI) | payer BC ==
[2017-09-15 16:26] LABS: BASOPHILS % (AUTO) 0.7 % (0.0-2.0); EOSINOPHILS % (AUTO) 0.8 % (0.0-3.0); HEMATOCRIT 32.5 % (42.0-52.0); HEMOGLOBIN 10.8 G/DL (14.2-18.0); LYMPHOCYTES % (AUTO) 14.6 % (20.0-45.0); MEAN CORPUSCULAR VOLUME 95 FL (80-99); MONOCYTES % (AUTO) 9.2 % (1.0-10.0); NEUTROPHILS % (AUTO) 74.7 % (45.0-75.0); PLATELET COUNT 216 K/UL (150-450); RED BLOOD COUNT 3.41 M/UL (4.70-6.10); RED CELL DISTRIBUTION WIDTH 14.1 % (11.6-14.8); WHITE BLOOD COUNT 9.2 K/UL (4.8-10.8)
[2017-09-15 16:39] LABS: ALANINE AMINOTRANSFERASE 21 U/L (12-78); ALBUMIN 2.3 G/DL (3.4-5.0); ALBUMIN/GLOBULIN RATIO 0.5 (1.0-2.7); ALKALINE PHOSPHATASE 251 U/L (46-116); ANION GAP 7 mmol/L (5-15); ASPARTATE AMINO TRANSFERASE 49 U/L (15-37); BILIRUBIN,TOTAL 2.5 MG/DL (0.2-1.0); BLOOD UREA NITROGEN 13 mg/dL (7-18); CALCIUM 8.8 MG/DL (8.5-10.1); CARBON DIOXIDE 28 MMOL/L (21-32); CHLORIDE 103 MMOL/L (98-107); CREATININE 1.5 MG/DL (0.55-1.30); POTASSIUM 4.3 MMOL/L (3.5-5.1); SODIUM 138 MMOL/L (136-145)
[2017-09-15 16:40] LABS: BILIRUBIN,DIRECT 1.3 MG/DL (0.0-0.3)
== END 2017-09-15 14:48 | disposition home or self-care (01) ==
LOC: PAN 14:15
DX: K74.60 Unspecified cirrhosis of liver (principal); D64.9 Anemia, unspecified; R18.8 Other ascites
CPT/HCPCS: 36415; 80053; 82248; 85025

== ENCOUNTER 2017-10-02 13:19 | Outpatient (CLI) | payer BC ==
[2017-10-02 16:43] LABS: BASOPHILS % (AUTO) 0.8 % (0.0-2.0); EOSINOPHILS % (AUTO) 1.1 % (0.0-3.0); HEMATOCRIT 30.1 % (42.0-52.0); HEMOGLOBIN 10.2 G/DL (14.2-18.0); LYMPHOCYTES % (AUTO) 17.8 % (20.0-45.0); MEAN CORPUSCULAR VOLUME 97 FL (80-99); NEUTROPHILS % (AUTO) 72.4 % (45.0-75.0); PLATELET COUNT 244 K/UL (150-450); RED CELL DISTRIBUTION WIDTH 14.9 % (11.6-14.8); WHITE BLOOD COUNT 8.7 K/UL (4.8-10.8)
[2017-10-02 17:04] LABS: ALANINE AMINOTRANSFERASE 14 U/L (12-78); ALBUMIN 2.2 G/DL (3.4-5.0); ALBUMIN/GLOBULIN RATIO 0.5 (1.0-2.7); ALKALINE PHOSPHATASE 220 U/L (46-116); ANION GAP 8 mmol/L (5-15); ASPARTATE AMINO TRANSFERASE 39 U/L (15-37); BILIRUBIN,TOTAL 3.4 MG/DL (0.2-1.0); BLOOD UREA NITROGEN 15 mg/dL (7-18); CALCIUM 8.3 MG/DL (8.5-10.1); CARBON DIOXIDE 26 MMOL/L (21-32); CHLORIDE 102 MMOL/L (98-107); CREATININE 1.5 MG/DL (0.55-1.30); POTASSIUM 4.2 MMOL/L (3.5-5.1); SODIUM 136 MMOL/L (136-145)
[2017-10-02 17:08] LABS: BILIRUBIN,DIRECT 1.3 MG/DL (0.0-0.3)
== END 2017-10-02 13:51 | disposition home or self-care (01) ==
LOC: PAN 13:19
DX: K74.60 Unspecified cirrhosis of liver (principal)
CPT/HCPCS: 36415; 80053; 82248; 85025; G0463; 99211

== ENCOUNTER 2017-11-17 13:41 | Outpatient (CLI) | payer BC ==
[2017-11-17 17:18] LABS: BASOPHILS % (AUTO) 0.7 % (0.0-2.0); EOSINOPHILS % (AUTO) 1.2 % (0.0-3.0); HEMATOCRIT 30.3 % (42.0-52.0); HEMOGLOBIN 10.7 G/DL (14.2-18.0); LYMPHOCYTES % (AUTO) 16.9 % (20.0-45.0); MEAN CORPUSCULAR VOLUME 99 FL (80-99); MONOCYTES % (AUTO) 7.5 % (1.0-10.0); NEUTROPHILS % (AUTO) 73.7 % (45.0-75.0); PLATELET COUNT 233 K/UL (150-450); RED BLOOD COUNT 3.06 M/UL (4.70-6.10); RED CELL DISTRIBUTION WIDTH 12.6 % (11.6-14.8); WHITE BLOOD COUNT 10.2 K/UL (4.8-10.8)
[2017-11-17 17:35] LABS: ALANINE AMINOTRANSFERASE 14 U/L (12-78); ALBUMIN 2.7 G/DL (3.4-5.0); ALBUMIN/GLOBULIN RATIO 0.5 (1.0-2.7); ALKALINE PHOSPHATASE 197 U/L (46-116); ANION GAP 11 mmol/L (5-15); ASPARTATE AMINO TRANSFERASE 36 U/L (15-37); BILIRUBIN,TOTAL 1.8 MG/DL (0.2-1.0); BLOOD UREA NITROGEN 18 mg/dL (7-18); CARBON DIOXIDE 25 MMOL/L (21-32); CHLORIDE 100 MMOL/L (98-107); CREATININE 1.5 MG/DL (0.55-1.30); POTASSIUM 4.6 MMOL/L (3.5-5.1); SODIUM 135 MMOL/L (136-145)
[2017-11-17 17:37] LABS: BILIRUBIN,DIRECT 0.8 MG/DL (0.0-0.3)
== END 2017-11-17 14:15 | disposition home or self-care (01) ==
LOC: PAN 13:41
DX: K74.60 Unspecified cirrhosis of liver (principal)
CPT/HCPCS: 36415; 80053; 82248; 85025

== ENCOUNTER 2018-05-11 15:08 | Outpatient (CLI) | payer BC ==
[2018-05-11 16:19] LABS: BASOPHILS % (AUTO) 1.2 % (0.0-2.0); EOSINOPHILS % (AUTO) 1.1 % (0.0-3.0); HEMATOCRIT 31.4 % (42.0-52.0); HEMOGLOBIN 11.3 G/DL (14.2-18.0); LYMPHOCYTES % (AUTO) 17.9 % (20.0-45.0); MEAN CORPUSCULAR VOLUME 92 FL (80-99); MONOCYTES % (AUTO) 8.4 % (1.0-10.0); NEUTROPHILS % (AUTO) 71.4 % (45.0-75.0); PLATELET COUNT 196 K/UL (150-450); RED BLOOD COUNT 3.42 M/UL (4.70-6.10); RED CELL DISTRIBUTION WIDTH 11.9 % (11.6-14.8); WHITE BLOOD COUNT 7.2 K/UL (4.8-10.8)
[2018-05-11 16:47] LABS: ALANINE AMINOTRANSFERASE 20 U/L (12-78); ALBUMIN 3.9 G/DL (3.4-5.0); ALBUMIN/GLOBULIN RATIO 0.7 (1.0-2.7); ALKALINE PHOSPHATASE 164 U/L (46-116); ANION GAP 9 mmol/L (5-15); ASPARTATE AMINO TRANSFERASE 32 U/L (15-37); BILIRUBIN,TOTAL 1.3 MG/DL (0.2-1.0); BLOOD UREA NITROGEN 59 mg/dL (7-18); CALCIUM 10.5 MG/DL (8.5-10.1); CARBON DIOXIDE 27 MMOL/L (21-32); CHLORIDE 99 MMOL/L (98-107); CREATININE 2.7 MG/DL (0.55-1.30); SODIUM 135 MMOL/L (136-145)
[2018-05-11 16:49] LABS: BILIRUBIN,DIRECT 0.4 MG/DL (0.0-0.3)
== END 2018-05-11 15:38 | disposition home or self-care (01) ==
LOC: PAN 15:08
DX: K74.60 Unspecified cirrhosis of liver (principal)
CPT/HCPCS: 36415; 80053; 82248; 85025

== ENCOUNTER 2018-05-28 14:39 | Outpatient (CLI) | payer BC ==
[2018-05-28 17:03] LABS: ANION GAP 10 mmol/L (5-15); BLOOD UREA NITROGEN 23 mg/dL (7-18); CALCIUM 9.8 MG/DL (8.5-10.1); CARBON DIOXIDE 24 MMOL/L (21-32); CHLORIDE 105 MMOL/L (98-107); CREATININE 1.5 MG/DL (0.55-1.30); POTASSIUM 4.5 MMOL/L (3.5-5.1); SODIUM 139 MMOL/L (136-145)
== END 2018-05-28 15:09 | disposition home or self-care (01) ==
LOC: PAN 14:39
DX: K74.60 Unspecified cirrhosis of liver (principal)
CPT/HCPCS: 36415; 80048

== ENCOUNTER 2018-06-22 10:56 | Outpatient (CLI) | payer BC ==
--- NOTE | 2018-06-22 14:27 | Diagnostic Imaging Report ---
Indication: Abdominal pain, history of cirrhosis Technique: Mccabe-scale and duplex images of the upper abdomen were obtained. Doppler interrogation of the hepatic and pancreatic vessels. Comparison: 04/29/2017 Findings: There is a moderate amount of ascites fluid present. Gallbladder is nondistended. It contains gallstones. There is apparent gallbladder wall thickening. Sonographic Parish's sign is negative. Common bile duct measures 5 mm in diameter. No intrahepatic biliary ductal dilatation. Liver demonstrates coarsened echogenicity and surface nodularity. No focal abnormality Portal vein and hepatic veins are patent. Pancreas is unremarkable. The spleen is enlarged, measures 13.4 cm long Left kidney measures 9.1 cm in length. Right kidney measures 10.2 cm length. Both kidneys demonstrate normal echogenicity. There is no hydronephrosis. No focal abnormality . Non-aneurysmal abdominal aorta . Compared to the previous study, the liver surface nodularity is a new finding. The ascites is increased in amount. Currently demonstrated gallstones are not evident previously. The spleen has enlarged somewhat in the interim Impression: Coarsened hepatic echogenicity, consistent with hepatocellular disease. Surface nodularity suggests cirrhotic change. This is a new finding since previous study of 04/29/2017 Ascites, increased from previous exam Cholelithiasis, not evident previously. Apparent gallbladder wall thickening, may in part be an artifact of under distention. However, this could also be real, possibly related to the hepatocellular disease. Acute cholecystitis less likely but also possible, and hepatobiliary nuclear scan should be considered if there is high clinical suspicion for such Splenomegaly, increasing since previous exam, suggestive of portal hypertension
== END 2018-06-22 12:56 | disposition home or self-care (01) ==
LOC: ULS 10:56
DX: K74.60 Unspecified cirrhosis of liver (principal); R18.8 Other ascites; K80.20 Calculus of gallbladder without cholecystitis without obstruction; R16.1 Splenomegaly, not elsewhere classified
CPT/HCPCS: 76700

== ENCOUNTER → 2018-07-10 | Outpatient (CLI) | payer BC ==
[2018-07-10 09:09] LABS: BASOPHILS % (AUTO) 1.2 % (0.0-2.0); EOSINOPHILS % (AUTO) 1.9 % (0.0-3.0); HEMOGLOBIN 11.1 G/DL (14.2-18.0); LYMPHOCYTES % (AUTO) 20.2 % (20.0-45.0); MEAN CORPUSCULAR VOLUME 93 FL (80-99); NEUTROPHILS % (AUTO) 66.7 % (45.0-75.0); PLATELET COUNT 242 K/UL (150-450); RED BLOOD COUNT 3.54 M/UL (4.70-6.10); RED CELL DISTRIBUTION WIDTH 11.3 % (11.6-14.8); WHITE BLOOD COUNT 6.2 K/UL (4.8-10.8)
[2018-07-10 09:14] LABS: ALANINE AMINOTRANSFERASE 19 U/L (12-78); ALBUMIN 3.5 G/DL (3.4-5.0); ALBUMIN/GLOBULIN RATIO 0.7 (1.0-2.7); ALKALINE PHOSPHATASE 228 U/L (46-116); ANION GAP 9 mmol/L (5-15); ASPARTATE AMINO TRANSFERASE 31 U/L (15-37); BILIRUBIN,TOTAL 0.8 MG/DL (0.2-1.0); BLOOD UREA NITROGEN 33 mg/dL (7-18); CALCIUM 9.6 MG/DL (8.5-10.1); CARBON DIOXIDE 26 MMOL/L (21-32); CHLORIDE 102 MMOL/L (98-107); CREATININE 1.9 MG/DL (0.55-1.30); POTASSIUM 4.7 MMOL/L (3.5-5.1); SODIUM 137 MMOL/L (136-145)
--- NOTE | 2018-07-10 10:27 | Pre-Procedure Note/Attestation ---
Pre-Procedure Note/Attestation Complete Prior to Procedure Planned Procedure: not applicable Procedure Narrative: paracentesis Indications for Procedure Pre-Operative Diagnosis: Ascites Attestation I attest that I discussed the nature of the procedure; its benefits; risks and complications; and alternatives (and the risks and benefits of such alternatives ), prior to the procedure, with the patient (or the patient's legal phlebotomy services representative). I attest that, if there was a reasonable possibility of needing a blood transfusion, the patient (or the patient's legal phlebotomy services representative) was given the [facility] of Health Services standardized written summary, pursuant to the Fransico Lai Blood Safety Act ([place] Health and Safety Code # 1645, as amended). I attest that I re-evaluated the patient just prior to the surgery and that there has been no change in the patient's H&P, except as documented below: Allen Goncalves MD Jul 10, 2018 10:27
--- NOTE | 2018-07-10 10:48 | Brief Operative Note ---
Immediate Post Operative Note Operative Note Pre-op Diagnosis: Ascites Procedure: Paracentesis Post-op Diagnosis: same as pre-op Findings: consistent w/pre-op dx studies Surgeon: Bibiana Ferrer Anesthesia: local Specimen: yes - 9.7 L fluid Complications: none Condition: stable Fluids: none Drains: none Implant(s) used?: No Allen Ferrer MD Jul 10, 2018 10:48
--- NOTE | 2018-07-10 10:51 | Diagnostic Imaging Report ---
Indications: Ascites Technique: Ultrasound used to localize optimal puncture site. Sterile prepping and draping . Local anesthesia with 1% lidocaine. Under real-time ultrasound guidance, puncture peritoneal space using paracentesis needle. Stylet removed. Catheter placed to vacuum bottle suction. Total 9.7 liters of fluid aspirated. Patient tolerated procedure well, without immediate complication. Findings: Followup sonography demonstrates marked decrease in volume of peritoneal fluid Impression: Successful ultrasound-guided paracentesis, yielding 9.7 liters of fluid
== END | disposition home or self-care (01) ==
LOC: ULS 08:45
DX: K74.60 Unspecified cirrhosis of liver (principal); R18.8 Other ascites
CPT/HCPCS: 36415; 76942; 80053; 85025; 85610; 85730; 87070; 87205; 89051

== ENCOUNTER 2019-02-26 08:46 | Day surgery (SDC) | payer BC ==
[~2019-02-26] VITALS: Ht 180.3 cm; Wt 65.8 kg
[2019-02-26] VITALS (9 sets, daily range): BP systolic 106–136; BP diastolic 62–77
--- NOTE | 2019-02-26 09:59 | Pre-Procedure Note/Attestation ---
Pre-Procedure Note/Attestation Complete Prior to Procedure Planned Procedure: not applicable Procedure Narrative: egd Indications for Procedure Pre-Operative Diagnosis: cirrhosis Attestation I attest that I discussed the nature of the procedure; its benefits; risks and complications; and alternatives (and the risks and benefits of such alternatives ), prior to the procedure, with the patient (or the patient's legal business services sales representative). I attest that, if there was a reasonable possibility of needing a blood transfusion, the patient (or the patient's legal business services sales representative) was given the [facility] of Health Services standardized written summary, pursuant to the Fransico Victor Blood Safety Act ([place] Health and Safety Code # 1645, as amended). I attest that I re-evaluated the patient just prior to the surgery and that there has been no change in the patient's H&P, except as documented below: Arnoldo Daly MD Feb 26, 2019 09:59
--- NOTE | 2019-02-26 10:00 | Short Stay Surgery H&P ---
History of Present Illness History of Present Illness Chief Complaint cirrhosis HPI Fady Brunner is a 43 year old male who was admitted on for Cirrhosis, Patient History Allergies: Coded Allergies: No Known Allergies (Unverified , 04/29/17) PAST MEDICAL HISTORY: (1) Ascites due to alcoholic cirrhosis (2) Liver cirrhosis, alcoholic Medication History Scheduled Cholecalciferol (Vitamin D3)* (Vitamin D*), 1,000 UNIT ORAL DAILY, (Reported) Cholecalciferol (Vitamin D3)* (Vitamin D*), 1,000 UNIT ORAL DAILY, (Reported) Fluconazole (Fluconazole), 100 MG ORAL DAILY, (Reported) Fluconazole (Fluconazole), 200 MG ORAL DAILY, (Reported) Furosemide (Furosemide), 20 MG ORAL DAILY, (Reported) Furosemide* (Lasix*), 20 MG ORAL DAILY, (Reported) Lactulose (Lactulose*), 30 ML ORAL DAILY, (Reported) Midodrine (Midodrine HCl), 10 MG ORAL THREE TIMES A DAY, (Reported) Nystatin (Nystatin), 1 EACH PO THREE TIMES A DAY, (Reported) Octreotide Acetate (Octreotide Acetate), 100 MCG IJ Q8HR, (Reported) Pantoprazole* (Pantoprazole*), 40 MG ORAL DAILY, (Reported) Prednisone* (Prednisone*), 30 MG ORAL DAILY, (Reported) Rifaximin* (Xifaxan*), 550 MG ORAL TWICE A DAY, (Reported) Spironolactone* (Aldactone*), 100 MG ORAL DAILY, (Reported) Tamsulosin Hcl (Tamsulosin Hcl*), 0.4 MG ORAL BID, (Reported) Thiamine Hcl (Vitamin B1*), 100 MG ORAL DAILY, (Reported) Scheduled PRN Albuterol Sulfate (Proventil Hfa), 6.7 GM IH BID PRN for Shortness of Breath, ( Reported) Eucerin (Eucerin Creme), 1 APPLIC TOPIC ONCE A WEEK PRN for eczema, (Reported) Tramadol Hcl* (Ultram*), 50 MG ORAL Q6H PRN for For Pain, (Reported) Review of Systems Cardiovascular: Reports: no symptoms Respiratory: Reports: no symptoms Skeletal: Reports: no symptoms Gastrointestinal: Reports: no symptoms Genitourinary: Reports: no symptoms Neurologic: Reports: no symptoms Endocrine: Reports: no symptoms Hematologic: Reports: anemia Physical Exam Skin: normal HENT: normal Heart: normal Lungs: normal Abdomen: normal Extremities: normal Plan Plan of Care egd Attestation Are the patient's medical conditions optimized for surgery? Attestation Response: yes Arnoldo Daly MD Feb 26, 2019 10:00
[2019-02-26] MEDS ORDERED: SPIRONOLACTONE25 MG ORAL ×2 (10:44→10:48)
[2019-02-26] MEDS ORDERED: FUROSEMIDE40 MG ORAL ×2 (10:44→10:48)
[2019-02-26] MEDS ORDERED: Midazolam 2mg/2ml Inj ONE (11:00)
[2019-02-26] MEDS ORDERED: fentaNYL 100 mcg/2 mL IV ONE (11:00)
[2019-02-26] MEDS ORDERED: Propofol 200mg/20ml IV ONE (11:00)
[2019-02-26] MEDS ORDERED: LR 1000ml ONE (11:00)
--- NOTE | 2019-02-26 11:32 | Anethesia Preoperative Eval ---
Anesthesia Pre-op PMH/ROS General Date of Evaluation: Feb 26, 2019 Time of Evaluation: 10:40 Anesthesiologist: Estela ASA Score: ASA 3 Mallampati Score Class I : Soft palate, uvula, fauces, pillars visible Class II: Soft palate, uvula, fauces visible Class III: Soft palate, base of uvula visible Class IV: Only hard plate visible Mallampati Classification: Class II Surgeon: Liver cirrosis Diagnosis: [facility]os[facility] Surgical Procedure: EGD Anesthesia History: none Social History: alcohol use - h/o abuse Family History: no anesthesia problems Allergies: Coded Allergies: No Known Allergies (Unverified , 04/29/17) Medications: see eMAR Patient NPO?: Yes Past Medical History Cardiovascular: Denies: HTN, CAD, ID, valve dz, arrhythmia, other Pulmonary: Denies: asthma, COPD, ALEXI, other Gastrointestinal/Genitourinary: Reports: GERD; Denies: CRI, ESRD, other Neurologic/Psychiatric: Reports: depression/anxiety; Denies: dementia, CVA, TIA, other Endocrine: Denies: DM, hypothyroidism, steroids, other HEENT: Denies: cataract (L), cataract (R), glaucoma, [place] (L), [place] (R), other Hematology/Immune: Reports: anemia - mild; Denies: DVT, bleeding disorder, other Musculoskeletal/Integumentary: Denies: OA, RA, DJD, DDD, edema, other PMH Narrative: as above PSxH Narrative: see H&P Anesthesia Pre-op Phys. Exam Physician Exam Last Vital Signs Date Time Temp Pulse Resp B/P (MAP) Pulse Ox O2 Delivery O2 Flow Rate FiO2 02/26/19 11:05 Room Air 02/26/19 10:50 97.4 50 18 126/74 96 Constitutional: NAD Neurologic: CN 2-12 intact Cardiovascular: RRR, no M/R/G Respiratory: CTA Gastrointestinal: S/NT/ND Airway Exam Mallampati Score: Class II MO: full ROM: full Teeth: missing Dentures: no upper, no lower Anesthesia Pre-op A/P Risk Assessment & Plan Assessment: ASA 3 Plan: MAC Status Change Before Surgery: No Santhosh Palmer MD Feb 26, 2019 11:32
--- NOTE | 2019-02-26 11:33 | Immediate Post-Op Evaluation ---
Immediate Post-Op Evalulation Immediate Post-Op Evalulation Procedure: EGD with Bx Date of Evaluation: Feb 26, 2019 Time of Evaluation: 11:32 IV Fluids: 500 Blood Products: none Estimated Blood Loss: none Urinary Output: none Blood Pressure Systolic: 115 Blood Pressure Diastolic: 56 Pulse Rate: 58 Respiratory Rate: 20 O2 Sat by Pulse Oximetry: 98 Temperature (Fahrenheit): 97.6 Pain Score (1-10): 1 Nausea: No Vomiting: No Complications none Patient Status: awake, patent, none Hydration Status: adequate Santhosh Palmer MD Feb 26, 2019 11:33
--- NOTE | 2019-02-26 13:31 | 48 Hour Post Anesthesia Eval ---
Post Anesthesia Evaluation Procedure: EGD with Bx Date of Evaluation: Feb 26, 2019 Time of Evaluation: 13:29 Blood Pressure Systolic: 136 0: 68 Pulse Rate: 68 Respiratory Rate: 20 Temperature (Fahrenheit): 98.7 O2 Sat by Pulse Oximetry: 96 Airway: patent Nausea: No Vomiting: No Pain Intensity: 2 Hydration Status: adequate Cardiopulmonary Status: stable Mental Status/LOC: patient returned to baseline Follow-up Care/Observations: n/a Post-Anesthesia Complications: none Follow-up care needed: ready to discharge Santhosh Palmer MD Feb 26, 2019 13:31
--- NOTE | 2019-02-26 20:15 | Procedure Note ---
DATE OF PROCEDURE: 02/26/2019 SURGEON: Arnoldo Daly M.D. PROCEDURE: Upper endoscopy with biopsy. ANESTHESIA: Per Dr. Palmer. INSTRUMENT: Olympus adult flexible upper endoscope. INDICATION: Cirrhosis. REASON FOR PROCEDURE: The procedure, risks, benefits, and possible consequences, including hemorrhage, aspiration, perforation and infection, and alternative treatments, were explained to the patient/legal guardian by Dr. Arnoldo Daly and the patient/legal guardian understood and accepted these risks. PROCEDURE IN DETAIL: After informed consent was obtained and the patient was adequately sedated, Olympus upper endoscope was advanced from the mouth into second portion of duodenum and retroflexion was performed in the stomach. The patient showed no evidence of any esophageal, no gastric varices. In the stomach, in the prepyloric region, there was an area, which was really inflamed and there were 1 or 2 erosions in the center of this area, this is suspicious for healing ulcer, biopsy from this area was obtained. The patient also had mild duodenitis. At this time, the upper endoscope was retrieved and procedure was terminated. SUMMARY OF FINDINGS: 1. No evidence of any esophageal or gastric varices. 2. Multiple erosions and erythema in the prepyloric region, status post biopsy. 3. Duodenitis. RECOMMENDATIONS: Follow up pathology and treat accordingly. We will start the patient on PPI daily given current findings. Arnoldo Daly M.D. DR: BAL JOB#: [id number] CC:
== END 2019-02-26 12:35 | disposition home or self-care (01) ==
LOC: GAS 08:46
DX: K74.60 Unspecified cirrhosis of liver (principal); K29.80 Duodenitis without bleeding; Z79.899 Other long term (current) drug therapy
CPT/HCPCS: 43239; J2250; J2704; J3010; 94003; 94150

== ENCOUNTER 2019-08-24 09:10 | Outpatient (CLI) | payer BC ==
[~2019-08-24 09:10] MED LIST changes: +FUROSEMIDE40 MG ORAL; +SPIRONOLACTONE25 MG ORAL
--- NOTE | 2019-08-24 12:16 | Diagnostic Imaging Report ---
Indication: Abdominal pain Technique: Grayscale and duplex Doppler imaging of the abdomen performed. Comparison: None Findings: The liver is unremarkable. Doppler interrogation of the main portal vein shows patency with hepatopedal, monophasic flow. There is no biliary ductal dilatation identified. Single gallstone noted. Trace perihepatic fluid noted. CBD is 4.6 mm. Spleen is mildly prominent measuring between 12 and 13 cm. There demonstrated part of the pancreas, aorta and IVC show no definite abnormalities. Both kidneys appear unremarkable. There is a 1 cm left renal cyst. There is no hydronephrosis. IMPRESSION: Cholelithiasis Trace ascites. Borderline splenomegaly Left renal cyst
== END 2019-08-24 11:10 | disposition home or self-care (01) ==
LOC: ULS 09:10
DX: R10.9 Unspecified abdominal pain (principal); K80.20 Calculus of gallbladder without cholecystitis without obstruction; R18.8 Other ascites; N28.1 Cyst of kidney, acquired
CPT/HCPCS: 76700

== ENCOUNTER → 2020-04-06 | Outpatient (CLI) | payer BC ==
--- NOTE | 2020-04-06 15:12 | Diagnostic Imaging Report ---
Indication: Abdominal pain Technique: Multiplanar grayscale and duplex imaging of the abdomen. Comparison: 08/24/2019 Findings: Imaged portions of the pancreatic head unremarkable in appearance. Imaged portions of the abdominal aorta normal in caliber. Equivocal very subtle nodular contour of the liver which, if real, may suggest early cirrhotic change. No focal hepatic mass lesion appreciated sonographically. Liver is normal in size. Imaged hepatic veins are patent. Main portal vein is patent with normal direction of flow. Common bile duct is normal in caliber. There is cholelithiasis. No sonographic evidence to suggest acute cholecystitis. Spleen is borderline enlarged. Kidneys demonstrate normal echogenicity. There is no hydronephrosis or sonographically appreciable renal stone. No ascites demonstrated. IMPRESSION: * Equivocal subtle nodular contour of the liver which, if real, may suggest early cirrhotic change. * No focal hepatic mass lesion appreciated sonographically. * Cholelithiasis without sonographic evidence to suggest acute cholecystitis. * No biliary ductal dilatation. * Borderline splenomegaly.
== END | disposition home or self-care (01) ==
LOC: ULS 09:16
DX: R10.9 Unspecified abdominal pain (principal); K80.20 Calculus of gallbladder without cholecystitis without obstruction
CPT/HCPCS: 76700